=== PATIENT | female | born 1945 | race Caucasian/White ===

== ENCOUNTER → 2017-09-22 07:30 | Outpatient (CLI) | payer MEDICARE, SELFPAY ==
--- NOTE | 2017-09-22 10:16 | NEURO ---
NCS and/or EMG Patient Report Ordering Doctor: Carmelo Marquez DATE OF SERVICE: 09/22/17 Is a bilateral lower extremity nerve conduction study and a right lower extremity EMG performed on this 72-year-old female with a history of pain describes as pins and needles in her feet bilaterally for several years. She is healthy without a history of diabetes. She does have osteoarthritis. Remotely she experienced sciatica. Denies weakness. Bilateral lower extremity sensory and motor nerve conduction study along with H reflex and F-wave latencies were obtained. The sural sensory responses bilaterally demonstrate normal latencies and amplitudes. The medial plantar responses bilaterally demonstrate reduced amplitudes but intact latencies. The common peroneal conduction velocities bilaterally are borderline low with mild reduction of amplitude and mild prolongation of latencies. Tibial distal latencies are mildly increased with mild reduction of amplitude and conduction velocities. Tibial and common peroneal F-wave latencies symmetrically are preserved and the H reflex responses from the tibial nerves bilaterally are reduced. Right lower extremity needle was performed. Muscles evaluated included the extensor digitorum brevis, abductor hallucis, medial gastrocnemius, anterior tibialis, vastus lateralis and vastus medialis muscles. All muscles demonstrated normal insertional activity however distal muscle did demonstrate large motor units, this abnormality resolved more proximally consistent with a length dependent pattern. All other muscles demonstrated normal insertional activity with absence of pathologic spontaneous activity, normal motor unit recruitment pattern and amplitude was demonstrated otherwise. Impression: Abnormal electrophysiologic study of the lower extremities consistent with length dependent peripheral neuropathy.
== END ==
PROVIDERS: Family Provider Internal Medicine; PCP Internal Medicine; Visit Provider Podiatrist Foot & Ankle Surgery
DX: G57.91 Unspecified mononeuropathy of right lower limb (principal); G57.92 Unspecified mononeuropathy of left lower limb
CPT/HCPCS: 95886; 95911

== ENCOUNTER 2019-03-16 18:44 | Inpatient (IN) | payer MEDICARE, SELFPAY ==
[2019-01-12 12:35] VITALS: BMI 24.7
[2019-03-16] VITALS (8 sets, daily range): BP systolic 134–207; BP diastolic 60–75; PULSE 55–66; RESP 13–18; TEMP 36.6–36.7; O2SAT 97–100; BMI 23.3; BMI 24.4; BMI 24.5
--- NOTE | 2019-03-16 18:48 | EKG12_ITS ---
Test Reason : CP ADMIT Blood Pressure : / mmHG Vent. Rate : 056 BPM Atrial Rate : 056 BPM P-R Int : 170 ms QRS Dur : 098 ms QT Int : 510 ms P-R-T Axes : 044 012 020 degrees QTc Int : 492 ms Sinus bradycardia Nonspecific ST abnormality Prolonged QT Abnormal ECG Confirmed by MILAN DELANEY, ASHANTI ([id number]), purchase request editor RIA VAZQUEZ ([id number]) on 03/20/2019 11:30:06 AM Referred By: Mukesh Ugarte Confirmed By:ASHANTI YATES MD
--- NOTE | 2019-03-16 19:07 | RAD_ITS ---
STUDY: X-RAY CHEST REASON FOR EXAM: Female, 73 years old. Chest pain TECHNIQUE: Frontal view of the chest COMPARISON: None. FINDINGS: There is a left lung base infiltrate with small effusion. A trace right effusion is present. There is no pneumothorax. The heart is normal in size. The visualized osseous structures are within normal limits. RAD/Chest 1 View (Portable) IMPRESSION: Left lung base infiltrate with small effusion. Trace right effusion. Electronically Signed: Jim Hernandez, at 19:34 EDT Tel , Service support ,
[2019-03-16 19:18] LABS: Absolute Lymphocyte Count 1.01 X10^3/uL (0.83-4.51); Absolute Neutrophil Count 5.2 X10^3/uL (2.0-7.7); Basophil# 0.04 X10^3/uL; Basophil% 0.5 % (0-1); Eosinophil# 0.13 X10^3/uL; Eosinophils% 1.8 % (0-5); Hematocrit 33.8 % (37-47); Hemoglobin 9.9 g/dL (12.0-15.0); Lymphocyte # 1.01 X10^3/ul (4.0); Lymphocyte % 13.8 % (19-41); Mean Corp Hgb Conc 29.3 g/dL (32-36); Mean Corpuscular Hgb 22.7 pg (27.0-32.0); Mean Corpuscular Volume 77.5 fL (81-99); Mean Platelet Vol. 11.5 fl (6.2-12.0); Monocyte% 12.3 % (0-10); NRBC Flagged by Analyzer 0 % (0-5); Neutrophil % 71.1 % (47-70); Platelet Count 252 K/mm3 (150-450); RBC Distribution Width CV 15.9 % (11.6-14.6); RBC Distribution Width SD 44.7 fl (35.1-43.9); Red Blood Count 4.36 M/mm3 (4.2-5.4); White Blood Count 7.3 K/mm3 (4.4-11.0)
[2019-03-16 19:35] LABS: Anion Gap 4 (5-15); BUN 14 mg/dL (7-18); BUN/Creat Ratio 18.9 RATIO (10-20); Calcium,Total 8.5 mg/dL (8.5-10.1); Chloride 103 mmol/L (98-107); Creatinine, Serum 0.74 mg/dL (0.55-1.02); EST Glomerular Filtration Rate 82 mL/min (>60); Est Glom Filt Rate - Afr Amer 99 mL/min (>60); Glucose 83 mg/dL (74-106); Sodium Level 140 mmol/L (136-145)
--- NOTE | 2019-03-16 20:01 | EKG12_ITS ---
Test Reason : REPEAT Blood Pressure : / mmHG Vent. Rate : 063 BPM Atrial Rate : 063 BPM P-R Int : 158 ms QRS Dur : 098 ms QT Int : 442 ms P-R-T Axes : 039 005 030 degrees QTc Int : 452 ms Sinus rhythm with Premature supraventricular complexes Left ventricular hypertrophy with repolarization abnormality Abnormal ECG Confirmed by MILAN DELANEY, ASHANTI ([id number]), clinical editor RIA VAZQUEZ ([id number]) on 03/20/2019 10:54:37 AM Referred By: Mukesh Ugarte Confirmed By:ASHANTI YATES MD
[2019-03-16] MEDS: Aspirin 325 MG Tablet PO (20:07)
[2019-03-16 20:21] LABS: D-Dimer Quantitative (DVT/PE) 0.81 FEU/ug/m (0.27-0.49)
--- NOTE | 2019-03-16 20:23 | ED.RN ---
LAB CALL WITH CRITICAL VALUE FOR D.DIMER OF 0.81. DR NANDINI PERES NOTIFIED AT THIS TIME.
--- NOTE | 2019-03-16 20:26 | CT_ITS ---
STUDY: CTA CHEST REASON FOR EXAM: Female, 73 years old. Chest pain below the left breast. RADIATION DOSAGE (If Supplied By Facility): CTDIvol = ( 9.97 ) mGy, DLP = ( 334.42 ) mGycm TECHNIQUE: The examination was performed with the intravenous administration of IV 75mL Isovue-370 75ML. Post-processing of the angiographic images was performed, with multiplanar reformation and 3D reconstruction. Individualized dose optimization techniques were used for this CT. COMPARISON: None. FINDINGS: Normal enhancement of the main pulmonary artery and right and left pulmonary arteries. Normal enhancement of the bilateral peripheral pulmonary arteries. There is no demonstrated pulmonary embolism. Normal thoracic aorta and visualized great vessels. There is no demonstrated aortic dissection. There are calcifications of the coronary arteries. Normal mediastinum. Normal hilar regions. Normal visualized trachea and bronchi. The lungs are well expanded. Left lower lobe peribronchial thickening and surrounding airspace disease extending to the basilar segment with small adjacent effusion concerning for infectious infiltrate. Right lower lobe atelectatic changes are present. Normal pleura. Normal chest wall structures. Normal osseous structures. Normal visualized upper abdomen. CT/CTA Chest W/WO Contrast IMPRESSION: 1. No evidence of pulmonary embolism or aortic dissection. 2. Left lower lobe peribronchial thickening and airspace disease with small effusion concerning for acute left lower lobe infiltrate and pneumonia in the appropriate clinical setting. Electronically Signed: Luis Moses DO at 21:01 EDT , Service support ,
--- NOTE | 2019-03-16 20:34 | ED.DCSUM_ITS ---
- ER Visit Summary Date of Service: 03/16/19 Chief Complaint: Chest pain History of Present Illness: The patient is a 73 F presenting with chest pain. Patient states this started last night. Pain has been waxing and waning. It is worsened with deep breathing. She denies shortness of breath. She has chronic abdominal pain which is no worse than usual. She has nausea without vomiting. She has chronic diarrhea. Denies fever. She has a mild cough. She denies PE/DVT risk factors. She has a history of CAD, hypertension. Family history of heart disease age over 55. She is not a smoker. Physical Examination: Vitals are stable. Patient is afebrile. Alert no acute distress. HEENT exam is unremarkable. Neck is supple. Lungs are clear and equal bilaterally. Heart is regular rate and rhythm. Abdomen is soft nontender nondistended. Extremities are unremarkable. Skin is warm and dry. No focal neurologic deficit. Remainder of exam is unremarkable. Emergency Department Course and Treatment: EKG is sinus rate of 64 with inferior lateral T wave flattening and inversion, changed from previous. CBC normal except hemoglobin 9.9. Chemistries normal except for potassium 3.0. Troponin is negative. D-dimer 0.81. Chest x-ray shows left lung infiltrate, right effusion. CTA chest shows no evidence of pulmonary embolism or aortic dissection. Left lower lobe peribronchial thickening and airspace disease with small effusion concerning for acute left lower lobe infiltrate and pneumonia in the appropriate clinical setting. Patient was given Rocephin, Zithromax IV. Discussed with the hospitalist for admission. Disposition: Admission Impression: Chest pain, pneumonia This note was generated with [employer] dictation software. It may contain incorrect words, spelling, and punctuation that were not noted in review of the chart prior to signing ED Disposition - Plan for ED Patient: Referrals: Alisson Armenta MD [Primary Care Provider] -
--- NOTE | 2019-03-16 21:30 | PCM.HP.STD ---
Problem List (1) Atherosclerosis of coronary artery of [place] heart without angina pectoris Status: Chronic Comment: ROS-HMM-Xfiy LAD 3 x 20 mm Taxus 03/22/2006 (2) Essential (primary) hypertension Status: Chronic (3) HLD (hyperlipidemia) Status: Chronic History of Present Illness Date of Admission: 03/16/19 Chief Complaint: chest pain The patient is a 73 year old F with a significant history of CAD with stent placed 13 years ago; hypertension; depression and anxiety who presented to the emergency department with chest pain. Her chest pain is located under her left breast. Her pain is persistent. It radiates to her left shoulder. She tried Tylenol but this did not help her pain. Her chest pain is aggravated with coughing and taking deep breaths. She has a dry cough. Chest x-ray at the emergency department showed left lung base infiltrate with small effusion and trace right effusion. Chest CT showed left lower lobe peribronchial thickening and airspace disease with small effusion concerning for acute lower lobe infiltrate Her EKG showed T wave inversion and flattening in inferior and anterior leads. Past Medical History Past Medical History (Chronic Problems): Chronic Problems (Last Reviewed 03/17/19 @ 04:11 by Mukesh Ugarte MD) Atherosclerosis of coronary artery of [place] heart without angina pectoris (Chronic) MBE-MUF-Uyux LAD 3 x 20 mm Taxus 03/22/2006 Essential (primary) hypertension (Chronic) HLD (hyperlipidemia) (Chronic) Medical History: Medical History (Last Reviewed 03/17/19 @ 07:30 by Mukesh Ugarte MD) Atherosclerosis of coronary artery of [place] heart without angina pectoris (Chronic) I25.10 CZF-PPS-Ajet LAD 3 x 20 mm Taxus 03/22/2006 Essential (primary) hypertension (Chronic) I10 HLD (hyperlipidemia) (Chronic) E78.5 Anxiety F41.9 Lupus M32.9 Osteoarthritis M19.90 Allergies iodine Allergy (Verified 01/12/19 12:35) doesnt feel well Home Medications: Ambulatory Orders Medication Instructions Recorded cholecalciferol (vitamin D3) 5,000 5,000 unit PO QWEEK 01/11/18 unit capsule clorazepate dipotassium 3.75 mg 3.75 mg PO TID 01/11/18 tablet metoprolol tartrate 25 mg tablet 25 mg PO BID 01/11/18 nortriptyline 25 mg capsule 25 mg PO DAILY cap 01/12/19 Surgical History: Surgical History (Last Reviewed 03/17/19 @ 07:30 by Mukesh Ugarte MD) History of coronary artery stent placement (Resolved) Onset Date: 03/22/06 Z95.5 VPK-FTO-Abmf LAD 3 x 20 mm Taxus 03/22/2006 Hx of appendectomy Z90.49 Status post laser cataract surgery of left eye Z98.42 Lives: Alone Smoking Status: Never smoker - But reports secondhand smoking from . Tobacco Use: Non-smoker Alcohol: Rare - *Family History Maternal Family History: Family History (Last Reviewed 03/17/19 @ 07:30 by Mukesh Ugarte MD) Father No problems noted. Mother CHF (congestive heart failure) Paternal Family History: Family History (Last Reviewed 03/17/19 @ 07:30 by Mukesh Ugarte MD) Father No problems noted. Mother CHF (congestive heart failure) History Items: Heart Disease Review of Systems Constitutional: Denies: Chills, Fever, Weight Change HEENT: Denies: Head Aches, Sinus Congestion, Sinus Drainage Cardiovascular: Reports: Chest Pain. Denies: Palpitations Respiratory: Reports: Cough, Shortness of Breath Gastrointestinal: Denies: Abdominal Pain, Nausea, Vomiting Genitourinary: Denies: Dysuria Musculoskeletal: Denies: Joint Pain, Joint Tenderness Skin: Denies: Rash, Wounds Neurological: Denies: Numbness, Tingling, Focal weakness Psychiatric: Denies: Anxiety, Depression, Homicidal Ideations, Suicidal Ideations Hematologic/ Lymphatic: Denies: Easy Bruising, Easy Bleeding VTE Information - Inpt Only VTE Present on Admission: No VTE Mechan Device Prophylaxis: None VTE Pharm Prophylaxis ordered?: Yes - Physical Exam Vitals/I&O's: Vital Signs Temp Pulse Resp BP Pulse Ox 97.8 F 61 18 162/75 H 98 03/16/19 18:44 03/16/19 21:01 03/16/19 21:01 03/16/19 21:01 03/16/19 21:01 Oxygen Delivery Method Room Air Weight: 65.771 kg Body Mass Index (BMI) 23.3 General: Alert, Oriented x3, Cooperative HEENT: Atraumatic, PERRLA, EOMI, Normocephalic Neck: Supple, No JVD, Negative Carotid Bruits Lungs: Clear to auscultation, Normal air movement Cardiovascular: Regular rate, No murmurs Abdomen: Bowel Sounds Present, Soft, Non Tender Extremities: No edema, Capillary Refill Less than 3 Seconds Skin: No rashes, No breakdown Musculoskeletal: No Tenderness to Palpation of Joints or Extremities Neurological: Cranial nerves II-XII grossly intact Psych/Mental Status: Normal Affect, Appropriate Laboratory Results 03/16/19 19:08: WBC 7.3, RBC 4.36, Hgb 9.9 L, Hct 33.8 L, MCV 77.5 L, MCH 22.7 L, MCHC 29.3 L, RDW Std Deviation 44.7 H, RDW Coeff of Kitty 15.9 H, Plt Count 252, MPV 11.5, Immature Gran % (Auto) 0.500, Neut % (Auto) 71.1 H, Lymph % (Auto) 13.8 L, [place] % (Auto) 12.3 H, Eos % (Auto) 1.8, Baso % (Auto) 0.5, Absolute Neuts (auto) 5.2, Absolute Lymphs (auto) 1.01, Nucleated RBC % 0 03/16/19 19:08: Sodium 140, Potassium 3.0 L, Chloride 103, Carbon Dioxide 33.0 H, Anion Gap 4 L, BUN 14, Creatinine 0.74, Estim Creat Clear Calc 46.90, Est GFR (MDRD) Af Amer 99, Est GFR (MDRD) Non-Af 82, BUN/Creatinine Ratio 18.9, Glucose 83, Calcium 8.5, Troponin I < 0.015 03/16/19 19:08: D-Dimer Quant (PE/DVT) 0.81 H* Current Medications Azithromycin 500 mg/ Dextrose 255 mls @ 250 mls/hr IV X1 ONE Stop: 03/16/19 22:27 Ceftriaxone Sodium (Rocephin) 1 gm in 50 mls @ 100 mls/hr IV X1 ONE Stop: 03/16/19 21:55 Assessment/Plan All Active Problems (Last Reviewed 03/17/19 @ 04:11 by Mukesh Ugarte MD) History of coronary artery stent placement (Resolved 03/22/06) The patient is a 73 year old F with a significant history of CAD with stent placed 13 years ago; hypertension; depression and anxiety who presented to the emergency department with chest pain and radiographic evidence of left lower lobe infiltrates consistent with likely pneumonia; and also with T wave inversion in inferior and anterior leads. Community acquired pneumonia Blood culture ?2 was obtained at the emergency department; follow results. Chest x-ray and chest CTA is remarkable for infiltrates. Respiratory Gram stain and culture pending Antibiotics: Ceftriaxone and azithromycin was started at the emergency department; follow Albuterol as needed Chest pain Although her chest pain could be from her pneumonia; patient also have abnormal EKG. No current EKG to compare with. Aspirin 325 mg in the emergency department. ASA 81 mg p.o. daily Initial troponin was negative. Serial cardiac enzymes Stat EKG as needed for chest pain Chemical stress test in the AM if the cardiac enzymes are negative Hypokalemia On presentation her potassium was 3.0. Replacement ordered. Magnesium level checked. Magnesium level 1.8. 2 g of magnesium ordered. Depression and anxiety Amitriptyline continued Hypertension On presentation her blood pressure was not within goal Metoprolol continued Trend blood pressure and adjust blood pressure medication as necessary DVT prophylaxis Subcutaneous Lovenox Code Visit Inpatient E&M: 89048 Init Hosp L3
[2019-03-16] MEDS: Ceftriaxone 1 GM/50 ML BAG IV (21:55)
--- NOTE | 2019-03-16 22:44 | EKG12_ITS ---
Test Reason : CP Blood Pressure : / mmHG Vent. Rate : 064 BPM Atrial Rate : 064 BPM P-R Int : 154 ms QRS Dur : 090 ms QT Int : 444 ms P-R-T Axes : 038 009 023 degrees QTc Int : 458 ms Normal sinus rhythm Possible Left atrial enlargement Nonspecific ST and T wave abnormality Abnormal ECG Confirmed by MILAN DELANEY, ASHANTI ([id number]), senior technical editor RIA VAZQUEZ ([id number]) on 03/20/2019 10:54:55 AM Referred By: Mukesh Ugarte Confirmed By:ASHANTI YATES MD
[2019-03-16 23:15] LABS: Magnesium 1.8 mg/dL (1.6-2.6)
[2019-03-17] VITALS (12 sets, daily range): BP systolic 137–172; BP diastolic 61–84; PULSE 55–78; RESP 16–18; TEMP 36.6–36.9; O2SAT 94–98
[2019-03-17] MEDS: Atorvastatin Calcium 40 MG Tablet PO (00:50)
[2019-03-17] MEDS: Potassium Chloride 10mEq/100mL 10 MEQ/100 ML IV.SOLN. 100 MEQ IV BOLUS ×4 (00:51→03:41)
[2019-03-17] MEDS: Metoprolol Tartrate 25 MG Tablet PO ×2 (01:22→23:37)
[2019-03-17] MEDS: Nortriptyline 25 MG Capsule 75 MG PO ×2 (01:29→22:32)
--- NOTE | 2019-03-17 05:55 | EKG12_ITS ---
Test Reason : AM EKG Blood Pressure : / mmHG Vent. Rate : 054 BPM Atrial Rate : 054 BPM P-R Int : 172 ms QRS Dur : 096 ms QT Int : 494 ms P-R-T Axes : 033 013 028 degrees QTc Int : 468 ms Sinus bradycardia Otherwise normal ECG When compared with ECG of 16-MAR-2019 23:17, MANUAL COMPARISON REQUIRED, DATA IS UNCONFIRMED Confirmed by MILAN DELANEY, ASHANTI ([id number]), supervising editor trailer RIA VAZQUEZ ([id number]) on 03/20/2019 11:29:18 AM Referred By: Mukesh Ugarte Confirmed By:ASHANTI YATES MD
[2019-03-17 06:32] LABS: Absolute Lymphocyte Count 0.78 X10^3/uL (0.83-4.51); Absolute Neutrophil Count 5.7 X10^3/uL (2.0-7.7); Basophil# 0.05 X10^3/uL; Basophil% 0.7 % (0-1); Eosinophil# 0.07 X10^3/uL; Hematocrit 33.6 % (37-47); Hemoglobin 9.7 g/dL (12.0-15.0); Lymphocyte # 0.78 X10^3/ul (4.0); Lymphocyte % 10.7 % (19-41); Mean Corp Hgb Conc 28.9 g/dL (32-36); Mean Corpuscular Hgb 22.1 pg (27.0-32.0); Mean Corpuscular Volume 76.7 fL (81-99); Mean Platelet Vol. 11.5 fl (6.2-12.0); Monocyte# 0.67 X10^3/uL; Monocyte% 9.2 % (0-10); NRBC Flagged by Analyzer 0 % (0-5); Neutrophil # 5.67 X10^3/uL (2.7-7.7); Neutrophil % 77.9 % (47-70); Platelet Count 224 K/mm3 (150-450); RBC Distribution Width SD 44.3 fl (35.1-43.9); Red Blood Count 4.38 M/mm3 (4.2-5.4); White Blood Count 7.3 K/mm3 (4.4-11.0)
[2019-03-17] MEDS: 0.9% Saline Lock 10 ML Syringe IV ×3 (06:38→22:24)
[2019-03-17] MEDS: Aspirin E.C. 81 MG Tablet PO (06:40)
[2019-03-17 06:44] LABS: Anion Gap 4 (5-15); BUN 8 mg/dL (7-18); BUN/Creat Ratio 13.8 RATIO (10-20); Calcium,Total 8.4 mg/dL (8.5-10.1); Chloride 109 mmol/L (98-107); Cholesterol 191 mg/dL (200); Creatinine, Serum 0.58 mg/dL (0.55-1.02); EST Glomerular Filtration Rate 108 mL/min (>60); Est Glom Filt Rate - Afr Amer 131 mL/min (>60); Estimated Creatinine Clearance 45.09 ml/min; Glucose 98 mg/dL (74-106); High Density Lipoprotein 52 mg/dL; Potassium 4.5 mmol/L (3.5-5.1); Sodium Level 139 mmol/L (136-145); Triglycerides 90 mg/dL; Very Low Density Lipoprotein 18 mg/dL (5-40)
--- NOTE | 2019-03-17 07:20 | PCM.PROGNOTE ---
Subjective: The patient is a 73-year-old female with a past medical history of hypertension, hyperlipidemia, anxiety/depression, coronary artery disease with PTCA/JESUS to the proximal LAD in February 2006 who presented to the emergency department complaining of chest pain radiating to the left shoulder. The pain was aggravated with coughing and deep breaths. Vital signs in the emergency department were temperature 97.8, pulse rate 66, blood pressure 134/71, respiratory rate 18 and she was 100% saturated on room air. CBC showed a white blood cell count of 7.3 with 71% neutrophils. The hemoglobin was 9.9 with an MCV of 77.5 and normal platelets. D-dimer was mildly elevated at 0.81. Potassium was low at 3.0 and the serum bicarb was elevated at 33. BUN was 14 and the creatinine was 0.74. Troponin was less than 0.015. Chest x-ray showed a left basilar infiltrate with a small effusion. CT of the chest was negative for pulmonary embolism. The left lower lobe infiltrate was demonstrated on CT as well as chest x-ray. She was admitted to the hospital with a diagnosis of community-acquired pneumonia and azithromycin and Rocephin started in the emergency department were continued. Afebrile since admission. Blood pressures are not adequately controlled and have ranged from 144/62 207/74 since 7 PM on 03/16/2019. All lab was personally reviewed. White blood cell count remains normal at 7.3 and there are 78% neutrophils. Hemoglobin is stable at 9.7 with microcytic indices. Platelets remain normal. BMP is unremarkable. The BUN is decreased from 14 at admission to 8 today with hydration. Potassium is now within normal limits following supplementation. LDL is not adequately controlled at 121 and the HDL is 52. Serial cardiac enzymes were negative. Blood cultures are pending. Stress is negative today. she has pain in the left chest with deep breathing and so she is splinting her respirations. She is coughing but not getting much up. Admits to pushing herself at home. Lives by herself. Feeling tired. Poor appetite - Physical Exam Vitals/I&O's: Vital Signs Temp Pulse Resp BP Pulse Ox 98.0 F 57 L 16 167/61 H 98 03/17/19 06:35 03/17/19 06:35 03/17/19 06:35 03/17/19 06:35 03/17/19 06:35 Oxygen Delivery Method Room Air Weight: 147 lb Body Mass Index (BMI) 24.4 Intake and Output for Last 24 Hours 03/15/19 03/16/19 03/17/19 23:59 23:59 23:59 Intake Total 545 / 545 457.5 / 457.5 Balance 545 / 545 457.5 / 457.5 General: Alert, Cooperative, - - soft spoken HEENT: Atraumatic, PERRLA, EOMI, Normocephalic Oral: Moist Mucosa, No Gingival or Mucosal Lesions/ Ulcerations Neck: Supple, No JVD, No Nodes, Trachea Midline Lungs: - - poor inspiratory effort. Diminished BS's in the bases. No wheezing. Few crackles in the bases. No conversational dyspnea. No accessory muscle use. Not tachypneic. Cardiovascular: Regular rate, Regular Rhythm, Normal S1, Normal S2, No murmurs, No rub noted, No Gallop Abdomen: Bowel Sounds Present, Soft, Non Tender, Non-Distended Extremities: No clubbing, No cyanosis, No edema Skin: No rashes Neurological: Cranial nerves II-XII grossly intact, Neuro grossly intact Psych/Mental Status: Normal Affect, Appropriate Laboratory Results 03/16/19 19:08: WBC 7.3, RBC 4.36, Hgb 9.9 L, Hct 33.8 L, MCV 77.5 L, MCH 22.7 L, MCHC 29.3 L, RDW Std Deviation 44.7 H, RDW Coeff of Kitty 15.9 H, Plt Count 252, MPV 11.5, Immature Gran % (Auto) 0.500, Neut % (Auto) 71.1 H, Lymph % (Auto) 13.8 L, Patrick % (Auto) 12.3 H, Eos % (Auto) 1.8, Baso % (Auto) 0.5, Absolute Neuts (auto) 5.2, Absolute Lymphs (auto) 1.01, Nucleated RBC % 0 03/16/19 19:08: Sodium 140, Potassium 3.0 L, Chloride 103, Carbon Dioxide 33.0 H, Anion Gap 4 L, BUN 14, Creatinine 0.74, Estim Creat Clear Calc 46.90, Est GFR (MDRD) Af Amer 99, Est GFR (MDRD) Non-Af 82, BUN/Creatinine Ratio 18.9, Glucose 83, Calcium 8.5, Troponin I < 0.015 03/16/19 19:08: D-Dimer Quant (PE/DVT) 0.81 H* 03/16/19 22:50: Magnesium 1.8 03/16/19 22:50: Troponin I < 0.015 03/17/19 01:48: Troponin I < 0.015 03/17/19 05:50: WBC 7.3, RBC 4.38, Hgb 9.7 L, Hct 33.6 L, MCV 76.7 L, MCH 22.1 L, MCHC 28.9 L, RDW Std Deviation 44.3 H, RDW Coeff of Kitty 16.0 H, Plt Count 224, MPV 11.5, Immature Gran % (Auto) 0.500, Neut % (Auto) 77.9 H, Lymph % (Auto) 10.7 L, Patrick % (Auto) 9.2, Eos % (Auto) 1.0, Baso % (Auto) 0.7, Absolute Neuts (auto) 5.7, Absolute Lymphs (auto) 0.78 L, Nucleated RBC % 0 03/17/19 05:50: Sodium 139, Potassium 4.5, Chloride 109 H, Carbon Dioxide 26.0, Anion Gap 4 L, BUN 8, Creatinine 0.58, Estim Creat Clear Calc 45.09, Est GFR (MDRD) Af Amer 131, Est GFR (MDRD) Non-Af 108, BUN/Creatinine Ratio 13.8, Glucose 98, Calcium 8.4 L, Triglycerides 90, Cholesterol 191, LDL Cholesterol 121, VLDL Cholesterol 18, HDL Cholesterol 52 Current Medications Acetaminophen (Tylenol) 650 mg PO Q6H PRN PRN PRN Reason: Pain Score 1-3/Temp > 100.7 F Acetaminophen (Tylenol) 650 mg PO Q6H PRN PRN PRN Reason: Pain Score 1-3 /Temp>100.7 Albuterol Sulfate (Ventolin Aerosols) 2.5 mg INHALATION Q2H PRN PRN PRN Reason: SOB/Wheezing Aspirin (Ecotrin) 81 mg PO DAILY@0800 [facility] Last Admin: 03/17/19 06:40 Dose: 81 mg Documented by: Atorvastatin Calcium (Lipitor) 40 mg PO QHS [facility] Last Admin: 03/17/19 00:50 Dose: 40 mg Documented by: Cholecalciferol (Vitamin D) 5,000 unit PO QWEEK [facility] Dextrose (D50w Syringe) 0 gm IV X1 PRN; Protocol PRN Reason: Hypoglycemia Enoxaparin Sodium (Lovenox) 40 mg SC DAILY@1000 [facility] Glucagon () 1 mg IM .X1 PRN PRN Reason: Hypoglycemia Ceftriaxone Sodium (Rocephin) 1 gm in 50 mls @ 100 mls/hr IV Q24H [facility] Azithromycin 500 mg/ Dextrose 255 mls @ 250 mls/hr IV Q24H [facility] Stop: 03/19/19 23:02 Sodium Chloride () 250 mls @ 15 mls/hr IV .[id number] PRN PRN Reason: Saline Flush Last Infusion: 03/17/19 04:41 Dose: 0 mls/hr Documented by: Metoprolol Tartrate (Lopressor (Beta Sai)) 50 mg PO DAILY [facility] Metoprolol Tartrate (Lopressor (Beta Sai)) 25 mg PO QHS [facility] Last Admin: 03/17/19 01:22 Dose: 25 mg Documented by: Nitroglycerin (Nitrostat) 0.4 mg SUBLINGUAL Q5M PRN PRN Reason: CARDIAC/CHEST PAIN Non-Formulary Medication (Clorazepate Dipotassium) 3.75 mg PO TID [facility] Nortriptyline HCl (Pamelor) 25 mg PO DAILY [facility] Nortriptyline HCl (Pamelor) 75 mg PO QHS [facility] Last Admin: 03/17/19 01:29 Dose: 75 mg Documented by: Nutritional Formula (Lactose Free) (Ensure Enlive) 120 ml PO 4X/DAY [facility] Ondansetron HCl (Zofran) 4 mg IV Q8H PRN PRN PRN Reason: NAUSEA/VOMITING Sodium Chloride () 10 - 40 ml IV UD PRN PRN Reason: SALINE FLUSH Last Admin: 03/17/19 06:38 Dose: 10 ml Documented by: Medical Necessity - Tobacco Use Smoking Status: Never smoker - But reports secondhand smoking from . Tobacco Use: Non-smoker Assessment/Plan All Active Problems (Last Reviewed 03/17/19 @ 07:30 by Mukesh Ugarte MD) History of coronary artery stent placement (Resolved 03/22/06) Impressions 1. CAP -continue Rocephin and azithromycin. Respiratory panel, Legionella and streptococcal antigens in the urine are negative. She could not produce a sputum. Blood cultures are pending. 2. Left parapneumonic effusion with pleuritis -I stressed with her the importance of pain medication so that she is able to take a deep breath to clear the pneumonia in the left base. She has an incentive spirometer and her room and knows how to use it. 3. Microcytic anemia secondary to chronic iron deficiency-iron sucrose ordered. Stool is Hemoccult negative 4. Hypokalemia-resolved with supplementation 5. Noncardiac chest pain-stress test normal. His pain is secondary to pleurisy. 6. Anxiety/depression-continue home medications 7. Hypertension continue home meds 8. Coronary artery disease with history of a stent 13 years ago. LDL is not adequately controlled and it is 121. She should be on a statin with a goal LDL of Less than 70 9. Hemoccult positive stool with iron deficiency anemia. Will query her to see if she has ever had a colonoscopy. Legionella and streptococcal antigens in the urine, sputum GM stain and culture, respiratory panel ordered. Continue Rocephin and azithromycin Check iron studies Hemoccult stool Increase atorvastatin 80 mg p.o. nightly and recheck lipid panel in 6 weeks to see if the LDL is at goal Ambulatory pulse ox on room air prior to discharge Code Visit Inpatient E&M: 18170 Subs Hosp L2
[2019-03-17 07:56] LABS: AST(SGOT) 14 U/L (15-37); Alanine Aminotransfer ALT/SGPT 13 U/L (13-56); Albumin, Serum 3.1 g/dL (3.2-5.0); Alkaline Phosphatase 118 U/L (45-117); Bilirubin, Direct 0.09 mg/dL (0.00-0.30); Ferritin 5 ng/mL (8-252); Globulin 3.7 g/dL (2.2-4.2); Iron 30 ug/dL (50-170); Iron Binding Capacity,Total 359 ug/dL (250-450); PERCENT IRON SATURATION 8.4 % (15.0-55.0); Protein, Total 6.8 g/dL (6.4-8.2)
--- NOTE | 2019-03-17 11:00 | CASEMGMT ---
Addendum entered by Ivette Knight 03/17/19 12:22: This RN CM back to room and pt is still of the dept for testing at this time. Will attempt again later. Tim BLACK CM Original Note: This RN CM to room to complete CM assessment and pt is out of the dept for testing at this time. Will attempt again later. Tim BLACK CM
--- NOTE | 2019-03-17 11:46 | CASEMGMT ---
Pt is not in room at present for SW to speak w/her, however as per admitting RH she had said just last evening that she would bring in LW/POA forms, and that Emilio Gaitan is medical POA. SUZY Barraza
--- NOTE | 2019-03-17 11:58 | CASEMGMT ---
This RN CM to room to complete CM assessment and pt is out of the dept for testing at this time. Will attempt again later. SStaten RN CM
--- NOTE | 2019-03-17 12:45 | CASEMGMT ---
[place] assessment: Face to Face with patient for initial transition planning/care coordination assessment. [place] introduced self and role at [facility], pt voices understanding and consents to assessment at this time. Pt is sitting up on side of bed in no distress at this time. Pt is A/Ox4 at this time and answers all questions appropriately at this time. Care providers, pharmacy, and demographics verified at this time. PCP: Kathi Specialists: Elly, cardio; robbie Marquez Preferred Pharmacy: [facility] Insurance: [employer] Prescription Benefit: [employer] Living Will/HPOA: Pt states has LW/HPOA and is aware that they are not currently on file at [facility] at this time. Pt states that her brother, Adolph Gaitan, is HPOA. This [place] encouraged pt to bring AD paperwork in when able, voices understanding. LNOK: Adolph Gaitan, brother/HPOA; Kyleheriberto Handley, friend Living Arrangements: Pt states lives on main level of large 2 story home with 3 steps into home and states no concerns at home at this time. Pt states is independent with ADL's. Transportation: Pt states drives self and states no transportation concerns at this time. DME/HHC: Pt states has the following DME: grab bars, walker, and shower chair. Pt states does not use walker and states no need for any further DME at this time. Pt states no hx of HHC or SNF in the past. Pt states no concerns with going home at time of discharge. Pt states is retired. Pt states does not smoke or drink ETOH. Pt states no further concerns/needs at this time. CM to follow for any further discharge planning/needs. Advised pt to ask for CM if any further questions/concerns/needs arise, voices understanding. Pt Goal: Home Plan: Home [place]en [place]
[2019-03-17] MEDS: Nortriptyline 25 MG Capsule PO (13:33)
[2019-03-17] MEDS: Metoprolol Tartrate 50 MG Tablet PO (13:42)
--- NOTE | 2019-03-17 13:42 | STRESSREP_ITS ---
Stress Test Report Pharmacologic myocardial perfusion stress test. 73-year-old lady with a history of chest pain. Stress protocol: Resting EKG demonstrates sinus bradycardia with a rate of 57 bpm normal intervals are noted resting blood pressures 132/82 mmHg. 0.4 mg of regadenoson was infused per usual protocol followed by rapid intravenous saline flush injection continuous electronic device monitor was performed. Maximum heart rate attained was 78 bpm which was 53% of maximum predicted heart rate the maximum workload was 1 metabolic equivalent. At rest there were no ST or T wave changes noted suggest abnormal flow reserve at peak infusion nonspecific ST-T wave changes were noted with no evidence of abnormal flow reserve noted. The resting blood pressures 1 32/82 with a final blood pressure 142/96. Myocardial perfusion protocol. 11.5 mCi of technetium 99m sestamibi was injected at rest. 0.4 mg of regadenoson was infused per usual protocol peak infusion 35.2 mCi of technetium 99m sestamibi was injected stress images were obtained stress and rest images were reconstructed and compared in the short axis vertical and horizontal long axis. Gated images were also obtained Perfusion SPECT analysis: Review of the stress images demonstrate normal uptake of tracer noted in all areas of the myocardium the resting images similar demonstrate normal uptake of tracer noted in all areas of the myocardium. No areas of reversibility are noted suggest ischemia. Gated SPECT analysis: The gated ejection fraction is noted to be 75%. Conclusion: Normal pharmacologic myocardial perfusion stress test. Preserved ejection fraction.
[2019-03-17] MEDS: Acetaminophen 325 MG Tablet 650 MG PO (18:19)
[2019-03-17] MEDS: Ceftriaxone 1 GM/50 ML BAG IV (22:31)
[2019-03-17] MEDS: Atorvastatin Calcium 80 MG Tablet PO (22:32)
[2019-03-18] VITALS (14 sets, daily range): BP systolic 147–178; BP diastolic 71–98; PULSE 45–66; RESP 14–17; TEMP 36.5–36.8; O2SAT 92–98
[2019-03-18] MEDS: 0.9% Saline Lock 10 ML Syringe IV ×3 (01:30→22:03)
[2019-03-18] MEDS: oxyCODONE 5 MG Tablet PO ×2 (04:54→13:46)
[2019-03-18] MEDS: Aspirin E.C. 81 MG Tablet PO (09:38)
[2019-03-18] MEDS: Metoprolol Tartrate 50 MG Tablet PO (09:38)
[2019-03-18] MEDS: Nortriptyline 25 MG Capsule PO (09:39)
[2019-03-18] MEDS: Enoxaparin 40 MG/0.4 ML Syringe SC (09:41)
--- NOTE | 2019-03-18 14:05 | PN_ITS ---
Subjective: Patient still feels some chest pain mainly on the left posterior, aggravated by cough and deep breathing, pleuritic in nature. Patient is admitted with mainly chest pain with radiation to left shoulder. Chest x-ray shows left basilar infiltrate with a small effusion. CT chest was negative. On IV Rocephin and Zithromax for left basilar community-acquired pneumonia. Vitals/I&O's: Vital Signs Temp Pulse Resp BP Pulse Ox 97.7 F L 53 L 15 149/98 H 98 03/18/19 09:35 03/18/19 11:21 03/18/19 09:35 03/18/19 09:35 03/18/19 09:35 Oxygen Delivery Method Room Air Weight: 146 lb 15.997 oz Body Mass Index (BMI) 24.4 Intake and Output for Last 24 Hours 03/16/19 03/17/19 03/18/19 23:59 23:59 23:59 Intake Total 545 / 545 1772.50 / 1772.50 1164.5 / 1164.5 Balance 545 / 545 1772.50 / 1772.50 1164.5 / 1164.5 General: Alert, Oriented x3, Cooperative HEENT: Atraumatic, PERRLA, EOMI, Normocephalic Neck: Supple, No JVD, Negative Carotid Bruits Lungs: Clear to auscultation, No rhonchi, No wheeze, No rales, Diminished - Air entry is diminished on the left lung. Cardiovascular: Regular rate, Regular Rhythm, Normal S1, Normal S2, No murmurs Abdomen: Bowel Sounds Present, Soft, Non Tender, Non-Distended Extremities: No edema, Capillary Refill Less than 3 Seconds Skin: No rashes, No breakdown Musculoskeletal: No Tenderness to Palpation of Joints or Extremities, Arthritic Changes Neurological: Cranial nerves II-XII grossly intact, Deep Tendon Reflexes 2+/4 and Symmetrical, Neuro grossly intact Psych/Mental Status: Normal Affect, Appropriate Microbiology Past 72 Hours 03/17/19 09:02 Mucosa - Nasopharyngeal Respiratory Panel (PCR) - Final 03/17/19 08:15 Urine, Clean Catch Streptococcus pneumoniae Antigen (M - Final 03/17/19 08:15 Urine, Clean Catch Legionella Antigen - Final 03/17/19 08:15 Stool Stool Occult Blood ([facility]HAM) - Final Current Medications Acetaminophen (Tylenol) 650 mg PO Q6H PRN PRN PRN Reason: Pain Score 1-3/Temp > 100.7 F Last Admin: 03/17/19 18:19 Dose: 650 mg Documented by: Acetaminophen (Tylenol) 650 mg PO Q6H PRN PRN PRN Reason: Pain Score 1-3 /Temp>100.7 Albuterol Sulfate (Ventolin Aerosols) 2.5 mg INHALATION Q2H PRN PRN PRN Reason: SOB/Wheezing Aspirin (Ecotrin) 81 mg PO DAILY@0800 [facility] Last Admin: 03/18/19 09:38 Dose: 81 mg Documented by: Atorvastatin Calcium (Lipitor) 80 mg PO QHS [facility] Last Admin: 03/17/19 22:32 Dose: 80 mg Documented by: Cholecalciferol (Vitamin D) 5,000 unit PO QWEEK [facility] Clorazepate Dipotassium (Tranxene) 3.75 mg PO TID [facility] Last Admin: 03/18/19 06:41 Dose: 3.75 mg Documented by: Dextrose (D50w Syringe) 0 gm IV X1 PRN; Protocol PRN Reason: Hypoglycemia Enoxaparin Sodium (Lovenox) 40 mg SC DAILY@1000 [facility] Last Admin: 03/18/19 09:41 Dose: 40 mg Documented by: Glucagon () 1 mg IM .X1 PRN PRN Reason: Hypoglycemia Ceftriaxone Sodium (Rocephin) 1 gm in 50 mls @ 100 mls/hr IV Q24H [facility] Last Infusion: 03/17/19 23:01 Dose: Infused Documented by: Azithromycin 500 mg/ Dextrose 255 mls @ 250 mls/hr IV Q24H [facility] Stop: 03/19/19 23:02 Last Infusion: 03/18/19 00:12 Dose: Infused Documented by: Sodium Chloride () 250 mls @ 15 mls/hr IV .[id number] PRN PRN Reason: Saline Flush Last Infusion: 03/18/19 01:30 Dose: Infused Documented by: Iron Sucrose 200 mg/ Sodium (Chloride) 110 mls @ 220 mls/hr IV DAILY [facility] Stop: 03/19/19 10:29 Last Infusion: 03/18/19 10:32 Dose: Infused Documented by: Metoprolol Tartrate (Lopressor (Beta Sai)) 50 mg PO DAILY [facility] Last Admin: 03/18/19 09:38 Dose: 50 mg Documented by: Metoprolol Tartrate (Lopressor (Beta Sai)) 25 mg PO QHS [facility] Last Admin: 03/17/19 23:37 Dose: 25 mg Documented by: Nitroglycerin (Nitrostat) 0.4 mg SUBLINGUAL Q5M PRN PRN Reason: CARDIAC/CHEST PAIN Nortriptyline HCl (Pamelor) 25 mg PO DAILY [facility] Last Admin: 03/18/19 09:39 Dose: 25 mg Documented by: Nortriptyline HCl (Pamelor) 75 mg PO QHS [facility] Last Admin: 03/17/19 22:32 Dose: 75 mg Documented by: Nutritional Formula (Lactose Free) (Ensure Enlive) 120 ml PO 4X/DAY [facility] Last Admin: 03/18/19 13:49 Dose: Not Given Documented by: Ondansetron HCl (Zofran) 4 mg IV Q8H PRN PRN PRN Reason: NAUSEA/VOMITING Oxycodone HCl (Oxyir) 5 mg PO Q4H PRN PRN PRN Reason: >4 Last Admin: 03/18/19 13:46 Dose: 5 mg Documented by: Sodium Chloride () 10 - 40 ml IV UD PRN PRN Reason: SALINE FLUSH Last Admin: 03/18/19 09:47 Dose: 10 ml Documented by: STROKE Vital Signs/Narrative: Vital Signs Pulse 03/18/19 11:21 53 L Medical Necessity - Tobacco Use Smoking Status: Never smoker - But reports secondhand smoking from . Tobacco Use: Non-smoker Assessment/Plan All Active Problems (Last Reviewed 03/17/19 @ 07:30 by Mukesh Ugarte MD) History of coronary artery stent placement (Resolved 03/22/06) 33-year-old female admitted with left sided chest pain, pleuritic in nature. Chest x-ray and CTA chest consistent with left lower lobe pneumonia with peribronchial thickening and airspace disease and small parapneumonic effus ion. Impressions 1. CAP -continue Rocephin and azithromycin. Respiratory panel, Legionella and streptococcal antigens in the urine are negative. She could not produce a sputum. Blood cultures are pending. Pulse ox 98% on room air. No hypoxia 2. Left parapneumonic effusion with pleuritis She has an incentive spirometer 3. Microcytic anemia secondary to chronic iron deficiency-iron sucrose ordered. Stool is Hemoccult negative. Patient got 2 out of 3 iron sucrose ordered. Last dose tomorrow and then change to ferrous sulfate 325 once daily. Ferrous sulfate once daily has better and complete absorption than twice or thrice times daily. 4. Hypokalemia-resolved with supplementation 5. Noncardiac chest pain-stress test normal. His pain is secondary to pleurisy. 6. Anxiety/depression-continue home medications 7. Hypertension continue home meds 8. Coronary artery disease with history of a stent 13 years ago. LDL is not adequately controlled and it is 121. Goal LDL of Less than 70. On atorvastatin 80 mg daily 9. Hemoccult positive stool with iron deficiency anemia. Stool for occult blood negative. Will need colonoscopy as an outpatient. Clinical Impression(s) from Imaging Studies Chest X-Ray 03/16/19 19:07 IMPRESSION: Left lung base infiltrate with small effusion. Trace right effusion. Chest CTA 03/16/19 20:26 IMPRESSION: 1. No evidence of pulmonary embolism or aortic dissection. 2. Left lower lobe peribronchial thickening and airspace disease with small effusion concerning for acute left lower lobe infiltrate and pneumonia in the appropriate clinical setting. Code Visit Inpatient E&M: 07643 Subs Hosp L2
[2019-03-18] MEDS: Ceftriaxone 1 GM/50 ML BAG IV (22:03)
[2019-03-18] MEDS: Nortriptyline 25 MG Capsule 75 MG PO (22:05)
[2019-03-18] MEDS: Atorvastatin Calcium 80 MG Tablet PO (22:05)
[2019-03-18] MEDS: Metoprolol Tartrate 25 MG Tablet PO (22:08)
[2019-03-19] VITALS (7 sets, daily range): BP systolic 142–155; BP diastolic 49–66; PULSE 65–92; RESP 16–18; TEMP 36.4–36.7; O2SAT 93–98
[2019-03-19] MEDS: 0.9% Saline Lock 10 ML Syringe IV ×2 (05:36→10:24)
[2019-03-19] MEDS: Aspirin E.C. 81 MG Tablet PO (10:09)
[2019-03-19] MEDS: Nortriptyline 25 MG Capsule PO (10:10)
[2019-03-19] MEDS: Enoxaparin 40 MG/0.4 ML Syringe SC (10:10)
[2019-03-19] MEDS: Metoprolol Tartrate 50 MG Tablet PO (10:10)
--- NOTE | 2019-03-19 12:39 | DCINST_ITS ---
You will use the following diet at home:: Cardiac Your food should be the consistency of: Regular Your liquids should be the consistency of: Regular/Thin Discharge Activity: - - Gradually return to normal activity Call your doctor if you observe: Fever of 101 or Higher, Shortness of breath, Dizziness, Fainting spells, Swelling in the ankles, Chest pain, Calf discomfort, - - Call your PCP if severe diarrhea ( > 5 stools a day), painful sores in the mouth, painful swallowing, rash or itching. Taking a probiotic such as Lactobacillus or Kefir can help with loose stools while taking antibiotics. Additional Instructions: 1. I am discharging you on an antibiotic called Ceftin(Cefuroxime). Please finish ALL of the antibiotic as prescribed. You will need a follow up chest XRAY in 4-6 weeks to make sure that the pneumonia and the fluid around the lung resolved. IT is always a good idea to take a probiotic when you are taking antibiotics. 2. You are anemia - that means the red blood cell count is low. This usually happens because you are chronically losing blood and the bone marrow gets depleted of iron and that it can not have the building blocks to make new red blood cells. Common places where people lose blood is in the stool, in the urine and in women bleeding from the vagina. We need to find out where you are losing blood so discuss this is with your PCP. If you have not had a recent colonoscopy or upper endoscopy of the stomach you may need to have these. If you aree bleeding from the vagina you will need a pelvic ultra sound and a pelvic exam. You should have have your urine checked for blood. You should start taking an iron supplement once a day and if you tolerate this then it should be increased to twice a day. 3. Kombucha is a good probiotic and you can get organic kombucha with no preservatives. [facility] [employer] in [place] has different falvors of Kombucha and they even have it on tap. Allergies/Adverse Reactions: Allergies iodine Allergy (Verified 01/12/19 12:35) doesnt feel well Medications to take at Discharge cholecalciferol (vitamin D3) 5,000 unit capsule 5,000 unit PO QWEEK 01/11/18 clorazepate dipotassium 3.75 mg tablet 3.75 mg PO TID 01/11/18 metoprolol tartrate 25 mg tablet 25 mg PO BID 01/11/18 nortriptyline 25 mg capsule 25 mg PO DAILY cap 01/12/19 Cefuroxime Axetil [Ceftin] 500 mg PO BID #16 tab 03/19/19 The following prescriptions were given: Cefuroxime Axetil [Ceftin] 500 mg PO BID #16 tab Transmission Status: Pending to [id number] Primary Care Physician: Alisson Armenta MD [Primary Care Provider] - Please follow up with your Primary Care Physician in: 5-7 days Test Results: Test results from this visit will be discussed in further detail at your follow- up appointment, if applicable. Proposed Discharge Date: 03/19/19
--- NOTE | 2019-03-19 12:56 | PCM.DC.SUM ---
Discharge Date and Diagnosis - Problem List Patient Problems: Active and Suspected Problems (Last Reviewed 03/17/19 @ 07:30 by Mukesh Ugarte MD) Heme positive stool (Acute) Non-cardiac chest pain (Acute) Pleural effusion, left (Acute) Pleuritis (Acute) Community acquired pneumonia (Acute) Date of Admission: 03/16/19 Date of Discharge: 03/19/19 - Primary Discharge Diagnosis Active and Suspected Problems (Last Reviewed 03/17/19 @ 07:30 by Mukesh Ugarte MD) Community acquired pneumonia (Acute) Parapneumonic Pleural effusion, left (Acute) Pleuritis (Acute) Heme positive stool (Acute) Non-cardiac chest pain - ACS ruled out (Acute) - Secondary Discharge Diagnosis Chronic Problems (Last Reviewed 03/17/19 @ 07:30 by Mukesh Ugarte MD) Anxiety and depression (Chronic) Iron deficiency anemia (Chronic) Atherosclerosis of coronary artery of [place] heart without angina pectoris (Chronic) IOW-EMM-Cymv LAD 3 x 20 mm Taxus 03/22/2006 History of coronary artery stent placement (Chronic 03/22/06) ZBE-QJC-Pilo LAD 3 x 20 mm Taxus 03/22/2006 Essential (primary) hypertension (Chronic) HLD (hyperlipidemia) (Chronic) Hospital Course and Treatment Imaging Results: Clinical Impression(s) from Imaging Studies Chest X-Ray 03/16/19 19:07 IMPRESSION: Left lung base infiltrate with small effusion. Trace right effusion. Electronically Signed: Jim Hernandez, at 19:34 EDT Tel , Service support , Chest CTA 03/16/19 20:26 IMPRESSION: 1. No evidence of pulmonary embolism or aortic dissection. 2. Left lower lobe peribronchial thickening and airspace disease with small effusion concerning for acute left lower lobe infiltrate and pneumonia in the appropriate clinical setting. Electronically Signed: Luis Moses DO at 21:01 EDT , Service support , Microbiology 03/17/19 09:02 Mucosa - Nasopharyngeal Respiratory Panel (PCR) - Final Negative 03/17/19 08:15 Urine, Clean Catch Streptococcus pneumoniae Antigen (M - Final Negative 03/17/19 08:15 Urine, Clean Catch Legionella Antigen - Final negative 03/17/19 08:15 Stool Stool Occult Blood ([facility]) - Final Positive none Operations: None Procedures: Stress test - Gated SPECT analysis: The gated ejection fraction is noted to be 75%. Conclusion: Normal pharmacologic myocardial perfusion stress test. Preserved ejection fraction. Summary of Care Provided: The patient is a 73-year-old female with a past medical history of hypertension, hyperlipidemia, anxiety/depression, coronary artery disease with PTCA/JESUS to the proximal LAD in February 2006 who presented to the emergency department complaining of chest pain radiating to the left shoulder. The pain was aggravated with coughing and deep breaths. Vital signs in the emergency department were temperature 97.8, pulse rate 66, blood pressure 134/71, respiratory rate 18 and she was 100% saturated on room air. CBC showed a white blood cell count of 7.3 with 71% neutrophils. The hemoglobin was 9.9 with an MCV of 77.5 and normal platelets. D-dimer was mildly elevated at 0.81. Potassium was low at 3.0 and the serum bicarb was elevated at 33. BUN was 14 and the creatinine was 0.74. Troponin was less than 0.015. Chest x-ray showed a left basilar infiltrate with a small effusion. CT of the chest was negative for pulmonary embolism. The left lower lobe infiltrate and L pleural effusion were demonstrated on CT as well as chest x-ray. She was admitted to the hospital with a diagnosis of community-acquired pneumonia. Azithromycin and Rocephin were started in the Ed and continued at admission. On 03/17/19 she had a pharmacologic nuclear stress test and it was negative. She continued to c/o Left lateral chest pain and pain medication was provided. She was seen in the hospital by PT and OT and she was able to walk 200 ft with SBA and no AD on the day of DC. While in the hospital she was noted to have a microcytic anemia and an iron panel was obtained. Serum iron was low at 30 and the TIBC was high normal at 359. Ferritin was low at 5. Hemoccult stool was positive for blood. She was given 1 dose of iron sucrose 200 mg while in the hospital. She was started on an iron supplement at discharge. She tells me that she had a colonoscopy a few months ago that revealed diverticulosis with no other significant findings. She did not have an EGD. She denies any postmenopausal vaginal bleeding. She also denies hematuria. The LDL was 121 and the HDL was 52. The LDL is not adequately controlled because she has a history of coronary artery disease and the goal of treatment should be to maintain LDL at 70 or less. On 03/19/2019 she was afebrile. She had been afebrile for the duration of her hospital stay. Legionella and streptococcal antigens in the urine were negative. The respiratory panel was negative. Blood cultures had no growth in 48 hours. She was discharged home on 03/19/19 with a RX for Ceftin 500 mg BID to finish 7 days of antibiotic therapy for CAP. She was instructed to take a probiotic while on Antibiotics. She will follow up in the office in 5-[address] Armenta. Any further W/U for iron deficiency anemia was deferred to Dr. Armenta. she will need a follow up CXR in 4-6 weeks to document clearing of the infiltrate and effusion in the Left base. She was instructed to take Tylenol for pain. PHYSICAL EXAM: GENERAL: alert, oriented X 3, Cooperative, NAD, lying in bed breathing easily. ORAL: moist mucosa, no mucosal lesions NECK: No JVD, supple, trachea midline LUNGS: few coarse crackles in the left base, no wheezes, no rhonchi, symmetric chest expansion. Not tachypneic, no conversational dyspnea, no accessory muscle use. HEART: RRR, Normal S1 and S2, no rub, no gallop ABDOMEN: soft, NT, ND, BS present, no guarding with palpation EXTREMITIES: no edema, no cyanosis, no calf tenderness SKIN: No rashes, no breakdown NEUROLOGIC: no focal neurologic deficits PSYCH: appropriate, normal affect, pleasant This note was generated with [employer] dictation software. It may contain incorrect words, spelling, and punctuation that were not noted in checking the note before signing. Patient Problems: Active and Suspected Problems (Last Reviewed 03/17/19 @ 07:30 by Mukesh Ugarte MD) Heme positive stool (Acute) Non-cardiac chest pain (Acute) Pleural effusion, left (Acute) Pleuritis (Acute) Community acquired pneumonia (Acute) - Physical Exam Vitals/I&O's: Vital Signs Temp Pulse Resp BP Pulse Ox 97.7 F L 85 17 142/56 H 93 03/19/19 09:49 03/19/19 11:15 03/19/19 09:49 03/19/19 10:10 03/19/19 09:49 Oxygen Delivery Method Room Air Weight: 146 lb 15.997 oz Body Mass Index (BMI) 24.4 Intake and Output for Last 24 Hours 03/17/19 03/18/19 03/19/19 23:59 23:59 23:59 Intake Total 1772.50 / 1772.50 411.25 / 411.25 Balance 1772.50 / 1772.50 411.25 / 411.25 Microbiology Past 72 Hours 03/17/19 09:02 Mucosa - Nasopharyngeal Respiratory Panel (PCR) - Final 03/17/19 08:15 Urine, Clean Catch Streptococcus pneumoniae Antigen (M - Final 03/17/19 08:15 Urine, Clean Catch Legionella Antigen - Final 03/17/19 08:15 Stool Stool Occult Blood ([facility]) - Final Current Medications Acetaminophen (Tylenol) 650 mg PO Q6H PRN PRN PRN Reason: Pain Score 1-3/Temp > 100.7 F Last Admin: 03/17/19 18:19 Dose: 650 mg Documented by: Acetaminophen (Tylenol) 650 mg PO Q6H PRN PRN PRN Reason: Pain Score 1-3 /Temp>100.7 Albuterol Sulfate (Ventolin Aerosols) 2.5 mg INHALATION Q2H PRN PRN PRN Reason: SOB/Wheezing Aspirin (Ecotrin) 81 mg PO DAILY@0800 [facility] Last Admin: 03/19/19 10:09 Dose: 81 mg Documented by: Atorvastatin Calcium (Lipitor) 80 mg PO QHS [facility] Last Admin: 03/18/19 22:05 Dose: 80 mg Documented by: Cholecalciferol (Vitamin D) 5,000 unit PO QWEEK [facility] Clorazepate Dipotassium (Tranxene) 3.75 mg PO TID [facility] Last Admin: 03/19/19 05:35 Dose: 3.75 mg Documented by: Dextrose (D50w Syringe) 0 gm IV X1 PRN; Protocol PRN Reason: Hypoglycemia Enoxaparin Sodium (Lovenox) 40 mg SC DAILY@1000 [facility] Last Admin: 03/19/19 10:10 Dose: 40 mg Documented by: Glucagon () 1 mg IM .X1 PRN PRN Reason: Hypoglycemia Ceftriaxone Sodium (Rocephin) 1 gm in 50 mls @ 100 mls/hr IV Q24H [facility] Last Infusion: 03/18/19 22:33 Dose: Infused Documented by: Azithromycin 500 mg/ Dextrose 255 mls @ 250 mls/hr IV Q24H [facility] Stop: 03/19/19 23:02 Last Infusion: 03/19/19 00:10 Dose: Infused Documented by: Sodium Chloride () 250 mls @ 15 mls/hr IV .[id number] PRN PRN Reason: Saline Flush Last Infusion: 03/19/19 01:15 Dose: Infused Documented by: Metoprolol Tartrate (Lopressor (Beta Sai)) 50 mg PO DAILY [facility] Last Admin: 03/19/19 10:10 Dose: 50 mg Documented by: Metoprolol Tartrate (Lopressor (Beta Sai)) 25 mg PO QHS [facility] Last Admin: 03/18/19 22:08 Dose: 25 mg Documented by: Nitroglycerin (Nitrostat) 0.4 mg SUBLINGUAL Q5M PRN PRN Reason: CARDIAC/CHEST PAIN Nortriptyline HCl (Pamelor) 25 mg PO DAILY [facility] Last Admin: 03/19/19 10:10 Dose: 25 mg Documented by: Nortriptyline HCl (Pamelor) 75 mg PO QHS [facility] Last Admin: 03/18/19 22:05 Dose: 75 mg Documented by: Nutritional Formula (Lactose Free) (Ensure Enlive) 120 ml PO 4X/DAY [facility] Last Admin: 03/19/19 12:13 Dose: Not Given Documented by: Ondansetron HCl (Zofran) 4 mg IV Q8H PRN PRN PRN Reason: NAUSEA/VOMITING Oxycodone HCl (Oxyir) 5 mg PO Q4H PRN PRN PRN Reason: >4 Last Admin: 03/18/19 13:46 Dose: 5 mg Documented by: Sodium Chloride () 10 - 40 ml IV UD PRN PRN Reason: SALINE FLUSH Last Admin: 03/19/19 10:24 Dose: 10 ml Documented by: Discharge Activity: - - Gradually return to normal activity Call your doctor if you observe: Fever of 101 or Higher, Shortness of breath, Dizziness, Fainting spells, Swelling in the ankles, Chest pain, Calf discomfort, - - Call your PCP if severe diarrhea ( > 5 stools a day), painful sores in the mouth, painful swallowing, rash or itching. Taking a probiotic such as Lactobacillus or Kefir can help with loose stools while taking antibiotics. Home Medications: Medications to take at Discharge cholecalciferol (vitamin D3) 5,000 unit capsule 5,000 unit PO QWEEK 01/11/18 clorazepate dipotassium 3.75 mg tablet 3.75 mg PO TID 01/11/18 metoprolol tartrate 25 mg tablet 25 mg PO BID 01/11/18 nortriptyline 25 mg capsule 25 mg PO DAILY cap 01/12/19 Cefuroxime Axetil [Ceftin] 500 mg PO BID #16 tab 03/19/19 Ferrous Sulfate [Iron] 325 mg PO DAILY #30 tab 03/19/19 Following Prescrptions Were Given to Patient: Cefuroxime Axetil [Ceftin] 500 mg PO BID #16 tab Transmission Status: Received by [id number] Ferrous Sulfate [Iron] 325 mg PO DAILY #30 tab Prescription Printed Primary Care Physician: Alisson Armenta MD [Primary Care Provider] - Please follow up with your Primary Care Physician in: 5-7 days Disposition: Home Minutes spent on discharge:: 35 Patient Condition:: Good Medical Necessity - Tobacco Use Smoking Status: Never smoker - But reports secondhand smoking from . Tobacco Use: Non-smoker Meaningful Use Info Meaningful Use Diagnoses (Choose all that apply): None applicable Code Visit Inpatient E&M: 58673 Disch Hosp
--- NOTE | 2019-03-19 13:26 | NURSING ---
Patient's home medication Tranxene was counted by this nurse and Demario Copeland publicity expert Nurse. Count was 100 tablets. Patient's home medication was returned to her. Patient placed same in her purse.
--- NOTE | 2019-03-20 14:38 | CASEMGMT ---
Case Management DC F/u Call: DC Date: 03/19/19 DC Diagnosis: Heme positive stool (Acute), Non-cardiac chest pain (Acute), Pleural effusion, left (Acute), Pleuritis (Acute), Community acquired pneumonia (Acute) DC Disposition: Home Lace/Strata: 01/24 Called patient home phone on listed demographics, no answer, voice message does not identify correct patient and therefore no VM was left. Chase Starr RNCM
== END 2019-03-19 15:07 | disposition home or self-care (01) | DRG 194 ==
LOC: ED 21:45 → PCU 23:17
PROVIDERS: Admitting Provider Hospitalist; Emergency Provider Emergency Medicine; Family Provider Internal Medicine; PCP Internal Medicine; Referring Provider Hospitalist; Visit Provider Internal Medicine
DX: J18.9 Pneumonia, unspecified organism (principal); J91.8 Pleural effusion in other conditions classified elsewhere; I25.10 Atherosclerotic heart disease of native coronary artery without angina pectoris; E87.6 Hypokalemia; I10 Essential (primary) hypertension; D50.9 Iron deficiency anemia, unspecified; R19.5 Other fecal abnormalities; R09.1 Pleurisy; F32.9 Major depressive disorder, single episode, unspecified; F41.9 Anxiety disorder, unspecified; Z95.5 Presence of coronary angioplasty implant and graft
CPT/HCPCS: 36415; 71045; 71275; 78452; 80048; 80061; 80076; 82274; 82728; 83540; 83550; 83735; 84484; 85025; 85379; 87040; 87449; 87633; 93005; 93017; 97116; 97162; 97166; 97802; 99285; A9500; J1756; J7040; J7050; Q9967; A4216; J2785

== ENCOUNTER 2019-03-20 14:06 | Emergency (ER) | payer MEDICARE, SELFPAY ==
[2019-03-16 22:37] VITALS: BMI 24.4
[2019-03-20 14:07] VITALS: BP 118/79; PULSE 80; RESP 14; TEMP 36.7; O2SAT 97; BMI 23.9
[2019-03-20 15:11] VITALS: RESP 18
--- NOTE | 2019-03-20 15:13 | VDUE_ITS ---
Reason For Study: Pain/swelling Right Proximal Left Proximal Right subclavian vein is spontaneous, widely Left jugular vein is spontaneous, widely patent, phasic, with no intraluminal patent, phasic, with no intraluminal echogenicity noted. echogenicity noted. Left subclavian vein is spontaneous, widely patent, phasic, with no intraluminal echogenicity noted. Left Arm Left axillary vein is spontaneous, patent, phasic, competent, compressible and demonstrates augmentation. Left brachial vein is compressible. Acute superficial vein thromosis is noted in the left cephalic vein from antecube to below mid bicep. Left basilic vein is compressible. Left Lower Arm Left radial vein is compressible. Left ulnar vein is compressible. Patient Safety Prelim to Angelita. Interpretation Summary Deep veins of the left upper extremity are patent and compressible segmentally. There is no evidence of deep vein thrombosis. Acute superficial thrombophlebitis is noted in the left cephalic vein from the left antecubital space to just distal to the left mid-bicep. The left basilic vein is patent and compressible. Ordering Physician: Quinton Goldstein Referring Physician: Alisson Armenta M.D. Performed By: Ivette Michaud RVT ?
--- NOTE | 2019-03-20 15:21 | ED.DCSUM_ITS ---
History of Present Illness Chief Complaint: Wound Check Informant: Patient Onset: Today Narrative: Presents for wound check left antecubital. Increasing redness and pain this morning. Just discharged from hospital yesterday for pneumonia after 3-day stay. States had initial IV placed there from the ER, this was removed and changed 2 days ago. However symptoms were not noticed until today. No fevers, no chest pains. States improving dyspnea from her pneumonia. She is on antibiotics. No other complaints. Prior similar symptoms: No Past Medical History - Allergies and Home Meds Allergies/Adverse Reactions: Allergies iodine Allergy (Verified 03/20/19 14:10) doesnt feel well Primary Care Physician: Alisson Armenta MD [Primary Care Provider] - Smoking Status: Never smoker - Family History Paternal Family History: Family History (Last Reviewed 03/17/19 @ 07:30 by Mukesh Ugarte MD) Father No problems noted. Mother CHF (congestive heart failure) Family History: Reports: Heart Disease Review of Systems General: Denies: Chills, Fever, Sweats Eyes: Denies: Visual changes - bilaterally, Diplopia ENT: Denies: Rhinorrhea, Sore throat Cardiovascular: Denies: Chest pain, Palpitations Respiratory: Denies: Dyspnea, Cough, Dyspnea on exertion Gastrointestinal: Denies: Abdominal pain, Nausea, Vomiting, Diarrhea, Melena, Hematochezia Genitourinary: Denies: Dysuria, Hematuria, Frequency Musculoskeletal: Denies: Back pain, Extremity Pain Skin: Reports: Wounds. Denies: Rash Neurological: Denies: Headache, Weakness, Numbness Physical Exam Vital Signs/Narrative: Vital Signs Temp Pulse Resp BP Pulse Ox 03/20/19 15:11 18 03/20/19 14:07 98.1 F 80 14 118/79 97 Inital Vital Signs reviewed: Yes General: Well nourished, Well developed, No Acute Distress Head: Normocephalic, Atraumatic Eyes: Perrl, EOMI ENT: Moist mucous membranes, No rhinorrhea Neck: Supple, Nontender Cardiovascular: Regular rate, Regular rhythm, No murmurs Respiratory: No distress, CTA bilaterally, Chest nontender Abdomen: Soft, Nontender, Nondistended, Normal bowel sounds Back: Nontender, Normal Inspection Extremities: No edema, - - Left upper extremity: Antecubital, there is slight induration with erythema proximal. There is tenderness along the vein lines. No active drainage. Pulses are intact distally. Skin: Normal color, No rash Neurological: Alert, Oriented x3, Cranial nerves II-XII grossly intact, Normal Strength, Normal Sensation Psychological: Normal affect, Normal Mood Diagnostic/Tx/Re-eval - Medical Decision Making Exam concerns for superficial thrombophlebitis clinically, however will obtain ultrasound to rule out any DVT in the left upper extremity. Results of ultrasound discussed with software support technician confirms a superficial thrombophlebitis, she states there is a superficial clot however no deep clot. Patient currently on antibiotics for her pneumonia. Discussed adjuvant treatment with warm compresses, Tylenol or Motrin as needed. Signs and symptoms discussed return. Otherwise follow-up with her PCP. All questions were answered. ED Disposition - Plan for ED Patient: Disposition: Home or Assisted Living Diagnosis: Thrombophlebitis arm Instructions: THROMBOPHLEBITIS, Superficial Referrals: Alisson Armenta MD [Primary Care Provider] - 3-5 Days Additional Instructions: Ultrasound your left arm notes superficial thrombophlebitis of the arm. There is no deep vein thrombosis. Finish your antibiotics as written for your pneumonia. Warm compresses, monitoring for worsening symptoms. Follow-up with your doctor.
[2019-03-20 16:42] VITALS: BP 140/59; PULSE 65; RESP 16; O2SAT 99
== END 2019-03-20 16:43 | disposition home or self-care (01) ==
PROVIDERS: Emergency Provider Emergency Medicine; Family Provider Internal Medicine; PCP Internal Medicine
DX: I80.8 Phlebitis and thrombophlebitis of other sites (principal)
CPT/HCPCS: 93971; 99282

== ENCOUNTER 2019-07-11 15:30 | Outpatient (RCR) | payer MEDICARE, SELFPAY ==
[2019-01-12 12:35] VITALS: BMI 24.7
--- NOTE | 2019-03-10 14:57 | HP.PTEVAL_ITS ---
Patient's Visit Information LAVELLE RUEDA is a 73 year old F referred to Physical Therapy by Alisson Armenta MD with a diagnosis of Balance problem, neuroapthy. Date of Evaluation: 03/10/19 Physical Therapist: Chano Rivera, DPT, OCS, CSCS - Visit Plan Frequency: 2x /Week Duration: 4-6 Weeks Plan: 2x/week for 4-6 weeks for. 1. Teach general posture and LE WB exercises to help with floor and bed mobility and work to I. 2. weight shifting and vestibular VOR/foam/ec balance ex to home I. - Subjective Findings: Diagnosed with neuropathy. Not sure what that is from. has been present3+ years. Diagnosed with Lupus from Dr. Wells but then says she doesnt have that. Dr. Marquez sent for VAV whcih showed for neuropathy. Has pain in feet that is worsening. Has gotten orthoitcs whcih have helped. Also g ot compression hose whcih help. Got medicated cream whcih helps. Those make pain tolerable. No meds as she was given them but didn't help. 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 Has problems walking including balance. When she walks she has to be slow. Occasionally her foot drags and pulls her off balance. No cane or walker. Has a couple falls with the latest one being on a rug in the bathroom. Often has to hod on to the wall when moving in one direction. Sleeping is less than adequate whcih is normal for her. 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 Can do most of these as long as she is slow and careful but it is annoying. Enjoys gardening whcih is tricky due to the uneven surface. Basic ADLs are OK, has someone to help her clean as she is slow especially on the steps which have a railing. - Objective Walks I on firm flat surface into PT. Slow gait and poor weight shifting. Trasnfers with labor without EU out of chair. steps require handrail for safety and show weakness in hip muscles. coordination in LE to reciprocal toe adn heel tap is slight deficits. Sensation to gross light touch is WNL. ROM LE is tight in DF and gastroc /hamstrings. reflexes 0/3 patella and achilles. Strength hips 3+ abd and ext adn flex, knees 4/5 adn ankles 4+/5 . - Balance Scores Functional Gait Assessment Score: 23 % Disability: 23.3400 CATSIB Score (Max score 120 seconds): 98 - Goals Goal 1:: FGA of to reduce fall risk. Goal Time Frame: 4-6 Weeks Goal 2:: Patient walk with normal gait speed adn exit chair without difficulty or multiple attempts Goal Time Frame: 4-6 Weeks Goal 3:: Pt feel balance is 75% improved adn I in ex to keep progressing. Goal Time Frame: 4-6 Weeks - Rehabilitation Potential Physical Therapy Diagnosis: balance problem, neuropathy. Rehabilitation Potential: Fair - Anticipated Interventions Patient/Client Instruction: Educate patient on: Condition, Plan of Care For the Purpose of:: To improve ability of physical actions for home/community/work/leisure, To improve gait and locomotor functions, To improve safety with gait Therapeutic Exercise to Include: Strength training, Postural training, Flexibilty training, Gait and locomotor training, Active ROM For the Purpose of:: To improve muscle performance and motor function, To increase tolerance to activity/condition/position, To improve ability of physical actions for home/community/work/leisure, To improve gait and locomotor functions, To improve health of tissue, To decrease soft tissue restriction, To improve balance Thank you for the opportunity to evaluate your patient. For Medicare and Medicare HMO plans, please review the plan of care and approve it. It will need to be FAXED BACK to us at [phone] for Medicare purposes. For Medicare only, by signing this I certify the plan of care. Please let me know if there are questions or concerns regarding this plan of care. Physician Signature: Date:
--- NOTE | 2019-04-28 15:56 | HP.PTREVAL_ITS ---
Alisson Armenta MD, It has been my pleasure to treat LAVELLE RUEDA over the last 6 visits for Balance problem, neuroapthy. Please see the progress note below for an update on the physical therapy plan of care! Subjective: Getting better. Walking faster. Not dragging feet anymore. Taking Iron has helped improve feeling in feet. Safer. Getting up from chair is easy and without assistance. Needs help still on steps. did not do ex at home. Objective/Function: vor WALKING STILL CHALLENGING. sTEPPING OVER IS A C HALLENGE. Pt more confident adn trasnferring out of chair I, still slow and hesitant moving at first but improved. Tends to keep weight posterior on steps through heel making clearing step hard at times but can do it with UE. OVERALL IMPROVING Plan Plan: 2x/week x 4 weeks appropriate to cotnue work on VOR giat, FW weight shift with steps adn walking upper level challenges ...turns, bends , step overs AND progress to I balance HEP to compliment totori's strengthening ex at home. Goals Goal 1:: FGA of to reduce fall risk. Goal Time Frame: 4-6 Weeks Goal Progress: Goal Met Goal 2:: Patient walk with normal gait speed adn exit chair without difficulty or multiple attempts Goal Time Frame: 4-6 Weeks Goal Progress: still slow, but transfer Goal 3:: Pt feel balance is 75% improved adn I in ex to keep progressing. Goal Time Frame: 4-6 Weeks Goal Progress: Progressing Goal 4:: Up and down steps without needing railing Goal Time Frame: 4-6 Weeks Goal Progress: NEW GOAL Goal 5:: VOR walking at normal speed without wobbling Goal Time Frame: 4-6 Weeks Goal Progress: NEW GOAL Goal 6:: FGA to diminish fall risk. Goal Time Frame: 4-6 Weeks Goal Progress: NEW GOAL Anticipated Interventions Patient/Client Instruction: Educate patient on: Condition, Plan of Care For the Purpose of:: To improve ability of physical actions for home/community/work/leisure, To improve gait and locomotor functions, To improve safety with gait Therapeutic Exercise to Include: Strength training, Postural training, Flexibilty training, Gait and locomotor training, Active ROM For the Purpose of:: To improve muscle performance and motor function, To increase tolerance to activity/condition/position, To improve ability of physical actions for home/community/work/leisure, To improve gait and locomotor functions, To improve health of tissue, To decrease soft tissue restriction, To improve balance Please do not hesitate to contact me at [phone] by phone or Fax: if you have questions or concerns regarding this new plan of care! Sincerely, Chano Rivera, DPT, OCS, CSCS
--- NOTE | 2019-08-29 13:33 | HP.PT.NRP ---
LAVELLE RUEDA was seen in my office for initial evaluation on 03/10/19. The following Plan of Care was established for this patient: Initial Frequency: 2x /Week Initial Duration: 4-6 Weeks Patient/Client Instruction: Educate patient on: Condition, Plan of Care For the Purpose of:: To improve ability of physical actions for home/community/work/leisure, To improve gait and locomotor functions, To improve safety with gait Therapeutic Exercise to Include: Strength training, Postural training, Flexibilty training, Gait and locomotor training, Active ROM For the Purpose of:: To improve muscle performance and motor function, To increase tolerance to activity/condition/position, To improve ability of physical actions for home/community/work/leisure, To improve gait and locomotor functions, To improve health of tissue, To decrease soft tissue restriction, To improve balance This patient was last seen in our office 07/11/19. Pertinent comments regarding their Physical therapy will appear below: Pt seen 15 visits of her POC with numerous cancels adn no shows throughout. She was 75% better at her last recheck but she cancelled her last visit without rescheduling. At this point, it has been nearly two months adn I will discontinue due to nonattendance. At this point I will be discontinuing this patient from physical therapy. I would be happy to see this patient again in the future if found appropriate by the physician. Thank you! Chano Rivera, DPT, OCS, CSCS
== END 2019-07-11 19:00 | disposition home or self-care (01) ==
LOC: PT 15:30
PROVIDERS: Family Provider Internal Medicine; PCP Internal Medicine; Visit Provider Internal Medicine
DX: R26.89 Other abnormalities of gait and mobility (principal); G60.9 Hereditary and idiopathic neuropathy, unspecified
CPT/HCPCS: 97110; 97162; 97164; 97530

== ENCOUNTER 2020-10-30 17:16 | Observation (INO) | payer MEDICARE, SELFPAY ==
[2020-01-16 12:59] VITALS: BMI 23.9
[2020-10-30] VITALS (18 sets, daily range): BP systolic 129–190; BP diastolic 61–98; PULSE 52–63; RESP 13–20; TEMP 36.1–36.8; O2SAT 93–99; BMI 25.0
--- NOTE | 2020-10-30 17:24 | EKG12_ITS ---
Test Reason : CHEST PAIN Blood Pressure : / mmHG Vent. Rate : 060 BPM Atrial Rate : 060 BPM P-R Int : 150 ms QRS Dur : 100 ms QT Int : 644 ms P-R-T Axes : 055 028 074 degrees QTc Int : 644 ms Normal sinus rhythm Nonspecific T wave abnormality Prolonged QT Abnormal ECG Confirmed by MILAN DELANEY, ASHANTI ([id number]), photo editor SARAI SALGADO ([id number]) on 11/01/2020 8:38:47 AM Referred By: LEIGH Confirmed By:ASHANTI YATES MD
--- NOTE | 2020-10-30 17:26 | ED.VIS.CHEST ---
HPI History of Present Illness Chief Complaint: Chest Pain Informant: patient Onset/Context/Timing Onset: Hours (Onset 12 noon) Activity at onset: sudden and onset (While eating) Timing: Continuous Quality: Positive for Burning Location: Substernal and Left Parasternal Current Severity: Mild Maximum Severity: Moderate Worsened By: Nothing Relieved By: Nothing Associated Symptoms: Negative for Nausea, Vomiting, Diaphoresis, Dyspnea, Cough, Fever, Lightheadedness, Acid Reflux and Palpitations Narrative Narrative: Patient is an elderly woman with history of coronary disease status post post placement of stent 15 years ago, essential hypertension, hyperlipidemia and iron deficiency anemia who presents with heartburn that is retrosternal left parasternal area. Nothing alleviates or exacerbates her symptoms. This occurred while eating. She states she has eaten this food before without symptoms. She does have stomach issues. This is different type of pain that she has with her stomach issues . Her stool is dark because she is on iron. She denies black or maroon-colored stool. She denies fever, chills night sweats. She denies ocular, visual auditory symptoms. She denies orthopnea or PND. She denies dyspnea on exertion. She is status post appendectomy at the age of 7. She denies intolerance to greasy or fried foods. She states she is very careful with regards to what she eats because of her stomach issues . She denies history of VTE. Denies leg pain, swelling discoloration. She has no risk factors for VTE. She denies history of congestive heart failure. Prior Similar Symptoms: No Recent Illness/Hospitalization: No CVD Risk Factors: Positive for Hypertension and Hypercholesterolemia; Negative for Diabetes, Family History 1' </=55 and Smoking PE Risk Factors: Negative for Recent Travel/Surgery, Recent Immobilization, Prior DVT or PE, Cancer and OCP + Smoking + >/=35 TAD Risk Factors: Positive for Hypertension; Negative for Marfan's Syndrome and Family History [facility] Medical History (Updated 10/30/20 @ 18:[address] Jaren Miller MD) ACS (acute coronary syndrome) Anxiety Anxiety and depression Atherosclerosis of coronary artery of [place] heart without angina pectoris Community acquired pneumonia Essential (primary) hypertension Heme positive stool HLD (hyperlipidemia) Hypokalemia Iron deficiency anemia Lupus Non-cardiac chest pain Osteoarthritis Pleural effusion, left Pleuritis Home Medications cholecalciferol (vitamin D3) 125 mcg (5,000 unit) capsule 5,000 unit PO QWEEK 01/11/18 [History Last Taken 03/15/19 08:00 5,000 unit] clorazepate dipotassium 3.75 mg tablet 3.75 mg PO TID 01/11/18 [History Last Taken 03/16/19 08:00 3.75 mg] metoprolol tartrate 25 mg tablet 25 mg PO BID 01/11/18 [History Last Taken 03/16/19 08:00 25 mg] nortriptyline 25 mg capsule 25 mg PO DAILY cap 01/12/19 [History Last Taken 03/16/19 08:00 25 mg] ferrous sulfate 325 mg PO DAILY #30 tab 03/19/19 [Rx Last Taken Unknown] aspirin 81 mg tablet,delayed release 81 mg PO QDAY #90 tab 01/16/20 [Rx Last Taken Unknown] atorvastatin 20 mg tablet 20 mg PO QHS #90 tablet 09/12/20 [Rx Last Taken Unknown] Allergy/AdvReac Type Severity Reaction Status Date / Time iodine Allergy doesnt Verified 10/30/20 17:19 feel well Family History Father No problems noted. Mother CHF (congestive heart failure) Surgical History History of coronary artery stent placement (03/22/06) Hx of appendectomy Status post laser cataract surgery of left eye Social History (Updated 10/30/20 @ 17:[address] Jaren Miller MD) household members: spouse housing: house Smoking Status: Never smoker alcohol intake: current alcohol intake frequency: other substance use type: does not use ROS ROS ED Constitutional Constitutional ED: Denies chills, fever(s), subjective, sweats or weight loss Eyes Eyes: Denies blurry vision, change in vision or diplopia ENT ENT ED: Denies ear pain, rhinorrhea or sore throat Cardiovascular Cardiovascular: Reports chest pain; Denies orthopnea, palpitations, paroxysmal nocturnal dyspnea or racing heartbeat Respiratory/Chest Respiratory/Chest: Denies cough, dyspnea, dyspnea on exertion, orthopnea, paroxysmal nocturnal dyspnea or sputum Gastrointestinal Gastrointestinal: Denies abdominal pain, constipation, diarrhea, melena, nausea or vomiting Genitourinary Genitourinary ED: Denies dysuria, hematuria or urinary frequency Musculoskeletal Musculoskeletal: Denies arthralgias, back pain, myalgias or neck pain Integumentary Denies abscess or rash Neurologic Neurologic: Denies headache(s) or weakness Hematologic/Lymphatic Hematologic/Lymphatic: Denies easy bleeding or easy bruising EXAM Physical Exam Const Vital Signs: 10/30/20 17:17 10/30/20 17:22 10/30/20 17:28 Temperature 98.2 F Temperature Source Temporal Pulse Rate 63 Respiratory Rate 20 H Respiratory Effort Normal Non-Labored Blood Pressure 190/98 H Blood Pressure Mean 128 Pulse Ox 98 Oxygen Delivery Method Room Air Room Air 10/30/20 18:06 Temperature Temperature Source Pulse Rate 59 L Respiratory Rate 16 Respiratory Effort Blood Pressure 176/90 H Blood Pressure Mean 118 Pulse Ox 98 Oxygen Delivery Method Room Air Positive well nourished and well developed General Appearance ED: well developed and NAD HEENT Reports moist mucous membranes HEENT Narrative: Uvula midline. Posterior pharynx no erythema or exudate. normocephalic and atraumatic Eyes PERRL and EOMs intact bilaterally General Eye ED: Negative for pale conjunctiva or scleral icterus Neck no lymphadenopathy, supple and no JVD Chest Wall inspection of chest normal Resp normal respiratory effort and clear to auscultation bilaterally Effort and Inspection: respiratory distress Cardio regular rate, regular rhythm, S1 normal heart sound, S2 normal heart sound and no murmurs GI normal to inspection, nondistended, normoactive bowel sounds, soft to palpation and non-tender Back/Spine no CVA tenderness; Negative for no thoracic nor lumbar tenderness Extremity normal to inspection Extremity Narrative: Minimal pitting edema bilaterally. There is no asymmetry. There is no discoloration. There is no leg vein distention or palpable cords on distribution of deep venous system. There is no tenderness noted either. General Extremety ED: Yes edema; Negative for tenderness General Extremity: edema Neuro oriented x3 and CN's II-XII intact bilaterally Sensorium / Orientation: awake and alert Motor Exam: strength 5/5 throughout Psych mental status grossly normal Skin no rashes or lesions noted Heart Score History: Moderately Suspicious Age: >/= 65 years Risk Factors: >/= 3 Risk Factors or History of CAD Troponin: >/=3 x Normal Limit Score: 7 MDM MDM MDM Narrative Medical decision making narrative: Patient presents with heartburn. This may be due to reflux, esophagitis/gastritis versus cardiac disease. EKG, appropriate blood work and chest x-ray was obtained. Patient was informed at 1747 that her EKG is unchanged from prior. She was informed that her blood count is unremarkable. She states the GI cocktail did not help her heartburn sensation. Lab Data Attestation: I reviewed the patient's lab results. Labs: Laboratory Results - last 24 hr 10/30/20 10/30/20 17:20 17:20 WBC 8.2 RBC 4.95 Hgb 14.4 Hct 44.9 MCV 90.7 MCH 29.1 MCHC 32.1 RDW Std Deviation 42.4 RDW Coeff of Kitty 12.9 Plt Count 255 MPV 11.4 Immature Gran % (Auto) 0.600 Neut % (Auto) 73.7 H Lymph % (Auto) 13.1 L [place] % (Auto) 10.0 Eos % (Auto) 1.6 Baso % (Auto) 1.0 Absolute Neuts (auto) 6.0 Absolute Lymphs (auto) 1.07 Nucleated RBC % 0 Sodium 142 Potassium 3.1 L Chloride 105 Carbon Dioxide 32.0 Anion Gap 5 BUN 10 Creatinine 0.85 Estim Creat Clear Calc 53.53 Est GFR (MDRD) Af Amer 84 Est GFR (MDRD) Non-Af 69 BUN/Creatinine Ratio 11.8 Glucose 96 Calcium 9.1 Troponin I 18.500 H* Radiography Chest X-Ray - ED: 1 View (Single portable chest x-ray performed. Interpreted by me at 1744.), Heart, Mediastinum, Bony Structures, No Acute Disease and Chronic Changes Diagnostic Testing: Radiology Impression Chest X-Ray 10/30/20 17:32 IMPRESSION: No radiographic evidence of acute cardiopulmonary disease. at 1745 Reported and signed by: Joe Aponte MD Electronically Signed: Joe Aponte MD at 17:44 EDT Tel , Service support , EKG Initial EKG: Attestation: I personally reviewed and interpreted this EKG as follows: Interpretation: Sinus Rhythm (Normal sinus rhythm with a ventricular rate of 60. AK interval is 150 ms. QS duration 100 ms. QT duration 644 ms with a QTC of 644 ms, which is prolonged. [place] is normal. There is nonspecific changes noted. Will need to compare to prior.) Comments: Compared to EKG performed on March 17, 2019. At EKG over the sinus bradycardia. The nonspecific changes were noted at that time as well. Treatment and Re-Evaluation Comments:: Case discussed with Dr. Esparza after troponin returned at 18.5. Plan is nitro glycerin drip, Brilinta and take to the [facility] Critical Care Time Critical Care Time: Yes Critical care time (excluding procedures): 30-74 minutes (33 minutes), Including time spent: (History, physical examination, documentation, review of prior records, initiation of treatment and interpretation of laboratory results), Discussing w/Patient &/or Family/Addiction Psychiatrist, Discussing w/Consultants and Arranging Admission or Transfer Discharge Plan Dx/Rx/DC Orders Clinical Impression: Non-ST elevated myocardial infarction (non-STEMI), HLD (hyperlipidemia), Essential (primary) hypertension Disposition Disposition: Acute Care Hospital [facility]
--- NOTE | 2020-10-30 17:32 | RAD_ITS ---
HISTORY: chest pain EXAMINATION/TECHNIQUE: XR Chest 1 View: Portable upright AP chest x-ray COMPARISON: 03/16/19 FINDINGS: LINES/DEVICES: None. LUNGS: No consolidation, edema or effusion. No pneumothorax. MEDIASTINUM AND CARDIOVASCULAR STRUCTURES: Cardiac silhouette not enlarged. Central airways and mediastinal contour are unremarkable. BONES AND SOFT TISSUES: No acute bony abnormalities. RAD/Chest 1 View (Portable) IMPRESSION: No radiographic evidence of acute cardiopulmonary disease. at 1745 Reported and signed by: Joe Aponte MD Electronically Signed: Joe Aponte MD at 17:44 EDT Tel , Service support ,
[2020-10-30 17:36] LABS: Absolute Lymphocyte Count 1.07 X10^3/uL (0.83-4.51); Basophil# 0.08 X10^3/uL; Eosinophil# 0.13 X10^3/uL; Eosinophils% 1.6 % (0-5); Hematocrit 44.9 % (37-47); Hemoglobin 14.4 g/dL (12.0-15.0); Lymphocyte # 1.07 X10^3/ul (0.83-4.51); Lymphocyte % 13.1 % (19-41); Mean Corp Hgb Conc 32.1 g/dL (32-36); Mean Corpuscular Hgb 29.1 pg (27.0-32.0); Mean Corpuscular Volume 90.7 fL (81-99); Mean Platelet Vol. 11.4 fl (6.2-12.0); Monocyte# 0.82 X10^3/uL; NRBC Flagged by Analyzer 0 % (0-5); Neutrophil # 6.02 X10^3/uL (2.7-7.7); Neutrophil % 73.7 % (47-70); Platelet Count 255 K/mm3 (150-450); RBC Distribution Width CV 12.9 % (11.6-14.6); RBC Distribution Width SD 42.4 fl (35.1-43.9); Red Blood Count 4.95 M/mm3 (4.2-5.4); White Blood Count 8.2 K/mm3 (4.4-11.0)
[2020-10-30] MEDS: Mag Hydrox/Al Hydrox/Simeth 30 ML UDC PO (17:38)
[2020-10-30] MEDS: Aspirin 81 MG TAB.CHEW 324 MG PO (17:38)
[2020-10-30 18:05] LABS: Anion Gap 5 (5-15); BUN 10 mg/dL (7-18); BUN/Creat Ratio 11.8 RATIO (10-20); Calcium,Total 9.1 mg/dL (8.5-10.1); Chloride 105 mmol/L (98-107); Creatinine, Serum 0.85 mg/dL (0.55-1.02); EST Glomerular Filtration Rate 69 mL/min (>60); Est Glom Filt Rate - Afr Amer 84 mL/min (>60); Estimated Creatinine Clearance 53.53 ml/min; Glucose 96 mg/dL (74-106); Potassium 3.1 mmol/L (3.5-5.1); Sodium Level 142 mmol/L (136-145)
--- NOTE | 2020-10-30 18:16 | NURSING ---
ICU [facility]
[2020-10-30] MEDS: TICAGRELOR 90 MG TABLET 180 MG PO (18:18)
--- NOTE | 2020-10-30 18:22 | NURSING ---
RN ADVANCED THEN ICU
[2020-10-30] MEDS: Nitroglycerin Infusion 250 ML 3 MG IV (18:25)
--- NOTE | 2020-10-30 18:46 | CON.PCM.CA_ITS ---
Assessment & Plan Assessment/Plan (1) Non-ST elevated myocardial infarction (non-STEMI): PLAN: She appears to have a non-ST elevation myocardial infarction with ongoing chest pain. I would recommend urgent cardiac catheterization. The risk benefits and alternatives have been explained to her she understands and agrees to proceed. She is currently on an intravenous nitroglycerin drip, has received aspirin as well as ticagrelor. Her cardiac catheterization this evening demonstrated the following: Significant 60% proximal left main coronary artery stenosis with dampening of pressures. Left anterior descending artery previously placed stent which is patent with area post stent with 60% stenosis and mismatch. Left circumflex artery with mild disease. Dominant right coronary artery with ostial 60 to 70% stenosis in proximal 60% disease. Left ventriculogram with estimated ejection fraction of 50% with anterior hypokinesis. Based on the above angiographic findings I would recommend transfer to a tertiary care facility for evaluation for coronary bypass graft surgery versus left main stenting. (2) History of coronary artery stent placement: PLAN: She does have a previous stent in the left anterior descending artery. She had previously undergone stress testing we did not demonstrate any evidence of ischemia albeit a pharmacologic stress test. (3) Essential (primary) hypertension: PLAN: Her blood pressure appears to be uncontrolled at this time. Postprocedure we will titrate her medication and consider the addition of an JEET inhibitor. We will continue to titrate her intravenous nitroglycerin for blood pressure control. Would also utilize beta-twyla. (4) HLD (hyperlipidemia): PLAN: She is on a medium intensity statin. This will be continued. HPI Consult Data Date of Consult: 10/30/20 HPI Narrative HPI Narrative: LAVELLE RUEDA, is a 75 F who presents to the emergency room this afternoon with ongoing chest discomfort. She is a lady with a history of coronary artery disease status post angioplasty and stenting of the left anterior descending artery in 2005. She also has a history of hyperlipidemia. She had been doing well and was last seen in the office in December 2019. She presented this afternoon with chest and epigastric discomfort after eating oatmeal. She thought it was indigestion and stuck with it all afternoon until this evening when she presented to the emergency room. She was noted to be hypertensive and still having chest discomfort. EKG did not demonstrate any acute or ongoing changes. I was called from the emergency room due to the persistence of the chest discomfort it was determined to take her to the cardiac catheterization lab emergently. She was started on intravenous nitroglycerin and administered oral ticagrelor. In addition she continued with her aspirin. She is currently in minimal chest discomfort but still with elevated blood pressure. [facility] Medical History ACS (acute coronary syndrome) Anxiety Anxiety and depression Atherosclerosis of coronary artery of [place] heart without angina pectoris Community acquired pneumonia Essential (primary) hypertension Heme positive stool HLD (hyperlipidemia) Hypokalemia Iron deficiency anemia Lupus Non-cardiac chest pain Osteoarthritis Pleural effusion, left Pleuritis Home Medications clorazepate dipotassium 3.75 mg tablet 3.75 mg PO TID 01/11/18 [History Last Taken 10/30/20] metoprolol tartrate 25 mg tablet 25 mg PO BID 01/11/18 [History Last Taken 10/30/20] nortriptyline 25 mg capsule 100 mg PO DAILY cap 01/12/19 [History Last Taken 10/28/20] aspirin [Adult Low Dose Aspirin] 81 mg PO DAILY 10/30/20 [History Last Taken 10/28/20] atorvastatin 20 mg PO QHS 10/30/20 [History Last Taken 10/28/20] cholecalciferol (vitamin D3) 25 mcg PO DAILY 10/30/20 [History Last Taken 10/30/20] ferrous sulfate 325 mg PO DAILY 10/30/20 [History Last Taken 10/30/20] nortriptyline 25 mg PO DAILY 10/30/20 [History Last Taken 10/30/20] Allergy/AdvReac Type Severity Reaction Status Date / Time iodine Allergy doesnt Verified 10/30/20 17:19 feel well Family History Father No problems noted. Mother CHF (congestive heart failure) Surgical History History of coronary artery stent placement (03/22/06) Hx of appendectomy Status post laser cataract surgery of left eye Social History household members: spouse housing: house Smoking Status: Never smoker alcohol intake: current alcohol intake frequency: other substance use type: does not use ROS Constitutional Constitutional: Denies fever(s) or weight loss Eyes Eyes: Reports as per HPI ENT HEENT: Reports as per HPI Cardiovascular Cardiovascular: Reports chest pain at rest and other Details: Constant chest discomfort with minimal radiation, started after eating oatmeal. Respiratory/Chest Respiratory/Chest: Reports other Gastrointestinal Gastrointestinal: Denies change in bowel habits, nausea, vomiting or weight changes Genitourinary Genitourinary: Denies difficulty urinating Musculoskeletal Musculoskeletal: Denies joint stiffness or muscle weakness Integumentary Integumentary: Denies lesions Neurologic Neurologic: Denies dizziness or syncope Psychiatric Psychiatric: Denies anxiety Endocrine Endocrinology: Denies excessive sweating or fatigue Hematologic/Lymphatic Hematologic/Lymphatic: Denies anemia Allergic/Immunologic Allergic/Immunologic: Denies seasonal rhinorrhea Physical Exam Const oriented x3 and healthy appearing Orientation / Consciousness: awake HEENT normocephalic Eyes PERRL and conjunctivae normal Neck supple, no JVD and no carotid bruits Chest inspection of chest normal Resp normal respiratory effort and clear to auscultation bilaterally Cardio Palpation: normal PMI Rate: regular rate Rhythm: regular rhythm Heart Sounds: S1 normal and S2 normal Peripheral Pulses: pulses 2+ throughout GI normal to inspection, nondistended, normoactive bowel sounds Extremity normal to inspection and no clubbing, cyanosis or edema Psych mental status grossly normal Objective Data Vital Signs: Vital Signs Temp Pulse Resp BP Pulse Ox 96.9 F L 60 16 180/88 H 99 10/30/20 18:29 10/30/20 18:29 10/30/20 18:29 10/30/20 18:30 10/30/20 18:29 Oxygen Delivery Method Room Air Weight: 154 lb 12.232 oz Body Mass Index (BMI) 25.0 Intake & Output: Intake and Output for Last 24 Hours 10/28/20 10/29/20 10/30/20 23:59 23:59 23:59 Intake Total 0.25 / 0.25 Balance 0.25 / 0.25 Lab / Micro Data Result Diagrams: 10/30/20 17:20 10/30/20 17:20 Labs: Laboratory Results - last 24 hr 10/30/20 10/30/20 17:20 17:20 WBC 8.2 RBC 4.95 Hgb 14.4 Hct 44.9 MCV 90.7 MCH 29.1 MCHC 32.1 RDW Std Deviation 42.4 RDW Coeff of [place] 12.9 Plt Count 255 MPV 11.4 Immature Gran % (Auto) 0.600 Neut % (Auto) 73.7 H Lymph % (Auto) 13.1 L [place] % (Auto) 10.0 Eos % (Auto) 1.6 Baso % (Auto) 1.0 Absolute Neuts (auto) 6.0 Absolute Lymphs (auto) 1.07 Nucleated RBC % 0 Sodium 142 Potassium 3.1 L Chloride 105 Carbon Dioxide 32.0 Anion Gap 5 BUN 10 Creatinine 0.85 Estim Creat Clear Calc 53.53 Est GFR (MDRD) Af Amer 84 Est GFR (MDRD) Non-Af 69 BUN/Creatinine Ratio 11.8 Glucose 96 Calcium 9.1 Troponin I 18.500 H* Cardiology Labs/Tests 10/30/20 17:20: WBC 8.2, RBC 4.95, Hgb 14.4, Hct 44.9, MCV 90.7, MCH 29.1, MCHC 32.1, Plt Count 255, MPV 11.4, Immature Gran % (Auto) 0.600, Neut % (Auto) 73.7 H, Lymph % (Auto) 13.1 L, [place] % (Auto) 10.0, Eos % (Auto) 1.6, Baso % (Auto) 1.0, Absolute Neuts (auto) 6.0, Nucleated RBC % 0 10/30/20 17:20: Sodium 142, Potassium 3.1 L, Chloride 105, Carbon Dioxide 32.0, Anion Gap 5, BUN 10, Creatinine 0.85, Est GFR (MDRD) Af Amer 84, Est GFR (MDRD) Non-Af 69, BUN/Creatinine Ratio 11.8, Glucose 96, Calcium 9.1, Troponin I 18.500 H* Rhythm: EKG: Normal sinus rhythm with nonspecific ST changes ECHO: Stress Test: Cardiac Cath: PCI: CT Surgery: Holter monitor: EPS: PPM: CXR: Chest CT Scan: Radiography Diagnostic Testing: Radiology Impression Chest X-Ray 10/30/20 17:32 IMPRESSION: No radiographic evidence of acute cardiopulmonary disease. at 1745 Reported and signed by: Joe Aponte MD Electronically Signed: Joe Aponte MD at 17:44 EDT Tel , Service support ,
--- NOTE | 2020-10-30 19:00 | ED.RN ---
1847 nitro titrated to 15mcg/min or 9mls an hour. rates pain 7/10, describes it as burning pressure. emotonal support provided.
--- NOTE | 2020-10-30 19:51 | CL.D_ITS ---
Patient Name: LAVELLE RUEDA Study Date: 10/30/2020 Performing: Adrien Sanabria MD Ht: 66 inches 168 cm : 1945 Wt: 154.5 lbs 70 kg Age: 75 Gender: female BSA: 1.79 PROCEDURE(S) PERFORMED [id number]/LV CLINICAL PROFILE AND INDICATIONS Indications: ACS <= 24 hrs Heart Failure: None Stress/Imaging Stress/Image Study Performed: No CONCLUSIONS Moderately severe left main coronary artery disease with pressure dampening, mild anterior hypokinesi s, moderately severe right coronary artery with pressure dampening, despite patient being on intraven ous nitroglycerin RECOMMENDATIONS Consideration for coronary artery bypass surgery or left main stenting DESCRIPTION OF PROCEDURE The patient arrived to the procedure lab. The risks and benefits of the procedure as well as a full d escription of our services here and current unavailability of surgical backup were fully explained to the patient and/or their significant other prior to the catheterization. The Timeout was completed, verifying the correct patient and procedure. The patient's procedural site was prepped and draped in the usual fashion. Local anesthetic was given subcutaneously to right radial region with Lidocaine 2% . Using a modified Seldinger technique, arterial access was obtained via the right radial artery, a 6 Fr sheath was inserted. Left Coronary Artery selective angiography was performed in multiple views u sing a 5 Fr. 4.0 [place] catheter. Right Coronary Artery selective angiography was then performed in mu ltiple views using a 5 Fr. 4.0 [place] catheter. Left Ventriculography was performed in [place] projection using a 5 Fr. [place] catheter. LV to AO pullback pressures were then recorded.The arterial sheath was pulled and a TR Band was applied for hemostasis w/ 13ml air CORONARY ANGIOGRAPHY DOMINANCE: Right Dominant LEFT HEART ASSESSMENT Left Ventricular Ejection Fraction: by LV Gram 50 % Anterior Hypokinesis - Mild Depressed Left Ventricular systolic function Patient was noted to be on 20 mcg/min of intravenous nitroglycerin at the time of procedure. LEFT MAIN: Proximal 60% stenosis with pressure dampening on catheter engagement LEFT ANTERIOR DESCENDING ARTERY: MID LAD: Previously placed stent is patent, Area distal to the stent has a 60% stenosisAnd diffusely diseased LAD CIRCUMFLEX ARTERY: Mild luminal irregularities less than 30% RIGHT CORONARY ARTERY: Proximal 60 to 70% stenosis involving the long area with pressure dampening on catheter engagement. COMPLICATIONS No Complications PROCEDURE MEDICATIONS Versed 1 mg IV Fentanyl 50 mcg IV Benadryl 25 mg IV @ 10/30/2020 19:00:48 Heparin 5000 unit(s) IA 10/30/2020 19:07:49 Nitro glycerin 25mg / 250ml D5W @ 10mcq maintained from the ER 10/30/2020 19:07:58 Nitro glycerin 25mg / 250ml D5W @ 20 mcg/min (increased rate) 10/30/2020 19:19:37 Nitro glycerin 25mg / 250ml D5W @ 25 mcg/min (increased rate) 10/30/2020 19:31:53 Potassium Chloride 10 mEq in 100cc NS 10/30/2020 19:05:22 Solu-medrol 125 mg IV 10/30/2020 19:00:56 SUMMARY OF HEMODYNAMIC DATA Time AIR REST ECG 19:01:24 AO 150/86 (117) SA 19:09:17 LV 178/13, 18 19:21:36 LV 177/12, 18 19:21:42 LV 164/13, 20 19:22:47 LVp 163/13, 20 19:22:50 AOp 168/80 (117) 19:22:55 Signed By Adrien Sanabria MD On 10/30/2020 19:50:15 Adrien Sanabria MD
[2020-10-30] MEDS: Acetaminophen 325 MG Tablet 650 MG PO (22:30)
[2020-10-30] MEDS: Nortriptyline 25 MG Capsule PO (22:33)
[2020-10-30] MEDS: 0.9% Normal Saline 1,000 ML 50 ML IV (22:34)
[2020-10-30] MEDS: Atorvastatin Calcium 20 MG Tablet PO (22:34)
== END 2020-10-31 00:09 | disposition short-term general hospital (02) ==
LOC: ED 18:14 → ICU 10-31 09:41
PROVIDERS: Admitting Provider Internal Medicine Cardiovascular Disease; Emergency Provider Emergency Medicine; PCP Internal Medicine; Visit Provider Internal Medicine Cardiovascular Disease
DX: I21.4 Non-ST elevation (NSTEMI) myocardial infarction (principal); E78.5 Hyperlipidemia, unspecified; I10 Essential (primary) hypertension; D50.9 Iron deficiency anemia, unspecified; I25.10 Atherosclerotic heart disease of native coronary artery without angina pectoris; M19.90 Unspecified osteoarthritis, unspecified site; Z95.5 Presence of coronary angioplasty implant and graft; Z79.899 Other long term (current) drug therapy; Z79.82 Long term (current) use of aspirin; M32.9 Systemic lupus erythematosus, unspecified; E87.6 Hypokalemia
CPT/HCPCS: 71045; 80048; 84484; 85025; 93005; 93458; 96365; 96366; 99152; 99153; 99218; 99285; J7030; Q9967; A4216; C1769; C1894; G0378; J2405

== ENCOUNTER 2020-11-19 21:03 | Emergency (ER) | payer MEDICARE, SELFPAY ==
[2020-10-30 17:17] VITALS: BMI 25.0
[2020-11-19 21:05] VITALS: BP 135/76; PULSE 76; RESP 16; TEMP 35.9; O2SAT 94; BMI 22.8
[2020-11-19 22:12] VITALS: BP 135/77; PULSE 78; RESP 16
--- NOTE | 2020-11-19 22:49 | EKG12_ITS ---
Test Reason : CP Blood Pressure : / mmHG Vent. Rate : 081 BPM Atrial Rate : 081 BPM P-R Int : 114 ms QRS Dur : 088 ms QT Int : 520 ms P-R-T Axes : 064 035 112 degrees QTc Int : 604 ms Sinus rhythm with frequent Premature ventricular complexes Right atrial enlargement T wave abnormality, consider lateral ischemia Prolonged QT Abnormal ECG Confirmed by XIAO DELANEY, MARY ([id number]), television news video editor RIA VAZQUEZ ([id number]) on 11/21/2020 10:51:05 AM Referred By: JESSICA Confirmed By:MARY HAGEN MD
--- NOTE | 2020-11-19 22:50 | ED.VIS.CHEST ---
HPI History of Present Illness Chief Complaint: Chest Pain Narrative Narrative: Patient presents with chest discomfort. She stated it started 4 hours ago when she tweaked her surgical wound when she was being placed in a ambulette while discharge from cardiac rehab. The patient is status post four-vessel bypass 3 weeks ago at [facility]. The patient stated she has had some discomfort from the bypass in this area and it seemed to have exacerbated today when her cot was mathieu. Patient stated that she has not taken anything for it. It is movement related. She is no longer taking pain medication. Denies any other symptoms. Describes it as a sharp discomfort moderate in severity with movement. [facility] Medical History ACS (acute coronary syndrome) Anemia Anxiety Anxiety and depression Atherosclerosis of coronary artery of [place] heart without angina pectoris Community acquired pneumonia Essential (primary) hypertension Heme positive stool HLD (hyperlipidemia) Hypokalemia Iron deficiency anemia Lupus Non-cardiac chest pain Osteoarthritis Pleural effusion, left Pleuritis Home Medications aspirin [Adult Low Dose Aspirin] 81 mg PO DAILY 10/30/20 [History Last Taken 10/28/20] atorvastatin 20 mg PO QHS 10/30/20 [History Last Taken 10/28/20] cholecalciferol (vitamin D3) 25 mcg PO DAILY 10/30/20 [History Last Taken 10/30/20] melatonin 3 mg PO QHS 11/19/20 [History Last Taken Unknown] pantoprazole [Protonix] 40 mg PO DAILY 11/19/20 [History Last Taken Unknown] Allergy/AdvReac Type Severity Reaction Status Date / Time iodine Allergy doesnt Verified 11/19/20 21:11 feel well Family History Father No problems noted. Mother CHF (congestive heart failure) Surgical History History of coronary artery stent placement (03/22/06) History of left heart catheterization (10/30/20) Hx of appendectomy Hx of CABG Status post laser cataract surgery of left eye Social History household members: spouse housing: house Smoking Status: Never smoker alcohol intake: current alcohol intake frequency: other substance use type: does not use ROS ROS ED ROS Narrative ROS General: Denies fever, chills, sweats Eyes: Denies visual changes, blurred vision, double vision ENT: Denies ear pain, rhinorrhea, sore throat Cardiovascular: See HPI Respiratory: Denies dyspnea, cough, sputum, dyspnea on exertion, orthopnea,PND GI: Denies abdominal pain, nausea, vomiting, diarrhea, constipation, melena : Denies dysuria, hematuria, frequency Musculoskeletal: Denies myalgias, arthralgias, neck pain, back pain Skin: Denies rash, abscess, abrasions Neuro: Denies headache, weakness, paresthesia Psych: Denies depression, anxiety Endo: Denies polyuria, polydipsia, polyphagia Heme: Denies easy bruising, easy bleeding, lymphadenopathy Allergy: Denies hives, swelling EXAM Physical Exam Narrative Exam Narrative: Vital signs reviewed General: Well-nourished well-developed Head: Normocephalic atraumatic Eyes: Pupils equal round and reactive to light extraocular movements intact ENT: TMs clear no hemotympanum no trauma Neck: Nontender full range of motion Cardiovascular: Regular rate rhythm no murmurs normal S1-S2 Respiratory: No distress clear to auscultation bilaterally chest tender to palpation inferior portion of the sternum and the lateral ribs bilateral. Patient has decreased range of motion secondary to pain in this area. Her wound is clean dry and intact Abdomen: Soft nontender nondistended normal bowel sounds no masses Back: Nontender no CVA tenderness Extremities: Nontender active range of motion ?4 extremities no trauma Skin: Normal color no trauma. See above Neuro alert oriented cranial nerves II through XII intact normal strength sensation reflexes Const Vital Signs: 11/19/20 21:05 11/19/20 22:12 11/19/20 22:55 Temperature 96.6 F L Temperature Source Temporal Pulse Rate 76 78 Respiratory Rate 16 16 Blood Pressure 135/76 H 135/77 H Blood Pressure Mean 95 96 Pulse Ox 94 Oxygen Delivery Method Room Air Room Air MDM MDM MDM Narrative Medical decision making narrative: Patient was given dose of morphine for her discomfort. I feel this is postoperative musculoskeletal pain. EKG obtained upon arrival shows sinus rhythm at a rate of 81. PVCs noted. No acute ischemia or STEMI. Nonetheless lab work and chest x-ray obtained. Chest x-ray shows a small left pleural effusion by my interpretation otherwise nothing acute. Lab work unremarkable. This includes a negative troponin value high-sensitivity. On reevaluation she does feel better. She was given a second dose of morphine throughout her stay. She is refusing to go back to the alf stated they were offered to her there. She would like to stay in our emergency department until morning when she can be seen by social work position to a new alf. I suspect this is musculoskeletal chest wall discomfort Lab Data Labs: Laboratory Results - last 24 hr 11/19/20 11/19/20 21:35 21:35 WBC 10.3 RBC 4.99 Hgb 14.4 Hct 44.9 MCV 90.0 MCH 28.9 MCHC 32.1 RDW Std Deviation 44.5 H RDW Coeff of Kitty 13.8 Plt Count 396 MPV 11.4 Immature Gran % (Auto) 1.800 H Neut % (Auto) 70.9 H Lymph % (Auto) 14.0 L [place] % (Auto) 11.8 H Eos % (Auto) 0.7 Baso % (Auto) 0.8 Absolute Neuts (auto) 7.3 Absolute Lymphs (auto) 1.44 Nucleated RBC % 0 Sodium 135 L Potassium 3.9 Chloride 100 Carbon Dioxide 27.0 Anion Gap 8 BUN 19 H Creatinine 0.92 Estim Creat Clear Calc 49.46 Est GFR (MDRD) Af Amer 76 Est GFR (MDRD) Non-Af 63 BUN/Creatinine Ratio 20.6 H Glucose 100 Calcium 8.9 Troponin I High Sens 46.2 Radiography Diagnostic Testing: Radiology Impression Chest X-Ray 11/19/20 23:07 IMPRESSION: Small left pleural effusion. Electronically Signed: Ran Garrido MD at 23:19 EDT Tel , Service support , Discharge Plan Triage Chief Complaint: Chest Pain ED Provider: Jamir Hilton Dx/Rx/DC Orders Clinical Impression: Acute chest wall pain Instructions: ED Strain Chest Wall Prescriptions: No Action cholecalciferol (vitamin D3) 25 mcg (1,000 unit) Capsule 25 mcg PO DAILY RF: 0 atorvastatin 20 mg tablet 20 mg PO QHS RF: 0 aspirin [Adult Low Dose Aspirin] 81 mg tablet,delayed release (DR/EC) 81 mg PO DAILY RF: 0 melatonin 3 mg Tablet 3 mg PO QHS RF: 0 pantoprazole [Protonix] 40 mg Tablet,Delayed Release (Dr/Ec) 40 mg PO DAILY RF: 0 Primary Care Provider: Alisson Armenta Referrals: Alisson Armenta MD [Primary Care Provider] - Disposition Disposition: Care Home Facility
[2020-11-19 23:03] LABS: Absolute Lymphocyte Count 1.44 X10^3/uL (0.83-4.51); Absolute Neutrophil Count 7.3 X10^3/uL (2.0-7.7); Basophil# 0.08 X10^3/uL; Basophil% 0.8 % (0-1); Eosinophil# 0.07 X10^3/uL; Eosinophils% 0.7 % (0-5); Hematocrit 44.9 % (37-47); Hemoglobin 14.4 g/dL (12.0-15.0); Lymphocyte # 1.44 X10^3/ul (0.83-4.51); Mean Corp Hgb Conc 32.1 g/dL (32-36); Mean Corpuscular Hgb 28.9 pg (27.0-32.0); Mean Platelet Vol. 11.4 fl (6.2-12.0); Monocyte# 1.22 X10^3/uL; Monocyte% 11.8 % (0-10); NRBC Flagged by Analyzer 0 % (0-5); Neutrophil # 7.31 X10^3/uL (2.7-7.7); Neutrophil % 70.9 % (47-70); Platelet Count 396 K/mm3 (150-450); RBC Distribution Width CV 13.8 % (11.6-14.6); RBC Distribution Width SD 44.5 fl (35.1-43.9); Red Blood Count 4.99 M/mm3 (4.2-5.4); White Blood Count 10.3 K/mm3 (4.4-11.0)
--- NOTE | 2020-11-19 23:07 | RAD_ITS ---
INDICATION: chest pain EXAMINATION/TECHNIQUE: X-RAY - XR Chest 2 Views COMPARISON: 10/30/2020. FINDINGS: The lungs are clear. Sternal cerclage wires and vascular clips are present from a prior sternotomy and coronary artery bypass graft procedure (CABG). Small left pleural effusion. No pneumothorax. Degenerative changes of the thoracic spine. RAD/Chest PA and Lateral IMPRESSION: Small left pleural effusion. Electronically Signed: Ran Garrido MD at 23:19 EDT Tel , Service support ,
[2020-11-19] MEDS: Morphine 4 MG/ML Syringe 2 MG IV (23:08)
[2020-11-19 23:19] LABS: Anion Gap 8 (5-15); BUN 19 mg/dL (7-18); BUN/Creat Ratio 20.6 RATIO (10-20); Calcium,Total 8.9 mg/dL (8.5-10.1); Chloride 100 mmol/L (98-107); Creatinine, Serum 0.92 mg/dL (0.55-1.02); EST Glomerular Filtration Rate 63 mL/min (>60); Est Glom Filt Rate - Afr Amer 76 mL/min (>60); Estimated Creatinine Clearance 49.46 ml/min; Glucose 100 mg/dL (74-106); Potassium 3.9 mmol/L (3.5-5.1); Sodium Level 135 mmol/L (136-145); Troponin-I HS 46.2 pg/mL (3.0-53.7)
[2020-11-20] MEDS: Morphine 2 MG/ML Syringe IV (00:01)
[2020-11-20 00:30] VITALS: BP 132/60; PULSE 74; RESP 16; O2SAT 98
--- NOTE | 2020-11-20 03:37 | ED.RN ---
retirement made aware of patient status and condition at this time
[2020-11-20] MEDS: Morphine 2 MG/ML Syringe IM (05:34)
[2020-11-20 07:14] VITALS: BP 141/69; PULSE 66; RESP 16; O2SAT 94
--- NOTE | 2020-11-20 09:52 | CM.ED ---
Social Work Emergency Department Called by residential driver to see patient regarding discharge disposition. Patient is from [facility] and would like to go to a different nursing facility. 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 Introduced to self and social work role. Patient reported to have just spent 3 weeks at [facility] after having heart surgery and was just admitted to [facility] yesterday. Patient shared her perceived poor experience with a staff member at [facility], in the way that patient was communicated to. Offered supportive listening to patient, as well as emotional support in acknowledging that patient has just gone through a lot of change in a concentrated amount of time. Validated that patient's emotions are real to the patient and explored that having so much change in a short time can also heighten emotions. Patient verbalized agreement. Educated patient limitations of begin able to do a new nursing facility admission from the ED and relation to patient's insurance, which will need a new precert. Educated there is not a reason to admit to the hospital, so any new NF admission must be done from [facility], as a new precert must be obtained. Patient asked about the [facility], as an option. Checked with admissions at [facility] and there are beds to consider new admissions. Educated patient to this information, but reinforced that patient would still have to be accepted, and that a bed available is not an automatic admission. Encouraged patient to talk to the social worker school at [facility] about concerns regarding staff interactions yesterday, work through a new plan, and if patient still wants to go to a new NF to talk to the social worker school about that. This jingle writer also agreed to call [facility]'s social worker school about concerns. Patient expressed understanding and acceptance. Patient's boyfriend Kyle arrived to the ED, so with patients permissions, reviewed above information. Patient brother, Adolph Gaitan, is the reported [facility] and patient asked this jingle writer to update Adolph as well. Called Adolph at [phone] to update. Updated residential driver for the ED. ED will work on transport back to [facility] by ambulance. Plan: Return to [facility], with a request placed for the social worker school at the to speak with patient about wishes for future rehab needs. No other services requested or indicated. -SUZY Posada, MARÍA ELENA
--- NOTE | 2020-11-20 10:48 | ED.RN ---
[facility]ad [facility] social work came and talked with pt. pt is now aggreeable to go back to [facility]
== END 2020-11-20 10:49 | disposition skilled nursing facility (03) ==
PROVIDERS: Emergency Provider Emergency Medicine; PCP Internal Medicine
DX: R07.89 Other chest pain (principal); I25.10 Atherosclerotic heart disease of native coronary artery without angina pectoris; I10 Essential (primary) hypertension; E78.5 Hyperlipidemia, unspecified; M19.90 Unspecified osteoarthritis, unspecified site; Z95.1 Presence of aortocoronary bypass graft; Z79.899 Other long term (current) drug therapy
CPT/HCPCS: 71046; 80048; 84484; 85025; 93005; 96372; 96374; 96376; 99285; A4216

== ENCOUNTER → 2020-12-21 | Outpatient (CLI) | payer MEDICARE, SELFPAY ==
[2020-12-21 22:31] LABS: Color, Urine Yellow (Yellow); Glucose, Dipstick Normal (Normal); Ketone-Dipstick Negative (Negative); Leukocyte Esterase-Dipstick 500 /ul (Negative); Nitrite-Dipstick Positive (Negative); Occult Blood-Urine 50 /ul (Negative); Protein-Dipstick 30 mg/dl (Negative); Specific Gravity, Urine 1.015 (1.002-1.030); Urine Clarity Clear (Clear); Urine Urobilinogen 1 mg/dl (Normal); Urine pH 6.5 (5.0 - 8.0)
[2020-12-21 22:39] LABS: Urine Bilirubin Dipstick 1 mg/dL (Negative)
== END | disposition home or self-care (01) ==
PROVIDERS: PCP Internal Medicine; Visit Provider Internal Medicine
DX: R30.0 Dysuria (principal)
CPT/HCPCS: 81002; 87086

== ENCOUNTER 2020-12-29 09:50 | Emergency (ER) | payer MEDICARE, SELFPAY ==
[2020-12-29 09:51] VITALS: BP 168/80; PULSE 71; RESP 16; TEMP 36.8; O2SAT 99; BMI 22.1
--- NOTE | 2020-12-29 10:11 | CT_ITS ---
EXAM: CT ABDOMEN AND PELVIS WITHOUT INTRAVENOUS CONTRAST : 1945 CLINICAL INDICATION: Abdominal pain TECHNIQUE: Helically acquired images were obtained of the abdomen and pelvis without intravenous contrast. This CT exam was performed using one or more of the following dose reduction techniques: automated exposure control, adjustment of the mA and/or kV according to patient size, and/or use of iterative reconstruction technique. This report was created using [employer] report generation technology. COMPARISON: None. FINDINGS: LOWER THORAX: There is a trace left-sided pleural effusion. Lung bases are clear. No cardiomegaly. ABDOMEN: LIVER: Unremarkable. Homogeneous. GALLBLADDER AND BILE DUCTS: Unremarkable. No calcified gallstones. No gallbladder distention or wall edema. No intra- or extrahepatic biliary ductal dilation. PANCREAS: Unremarkable. No focal cystic mass. SPLEEN: Unremarkable. Normal size without focal cystic or solid mass. ADRENALS: Unremarkable. No nodules. KIDNEYS AND URETERS: Unremarkable. Normal renal size and position. No hydronephrosis. STOMACH AND BOWEL: Unremarkable. No stomach or bowel distention. No focal inflammatory change. PELVIS: APPENDIX: No evidence of acute appendicitis. BLADDER: Unremarkable. REPRODUCTIVE: Unremarkable as visualized. No mass. ABDOMEN and PELVIS: INTRAPERITONEAL SPACE: Unremarkable. No ascites or other fluid collection. No free air. BONES/JOINTS: Unremarkable. No suspicious lytic or blastic abnormality. SOFT TISSUES: There is a curvilinear density seen extending from the subcutaneous tissues of the upper abdomen up behind the inferior sternum along the left upper abdomen of uncertain significance or etiology. Is possible that this was a lead from a battery pack that has been disconnected possibly have is a wire that has come loose from a median sternotomy.. It was not present on a CT scan of the chest dated 03/16/2019 . No discrete abdominal or pelvic wall hernia. VASCULATURE: Unremarkable. Abdominal aorta is non-dilated. LYMPH NODES: Unremarkable. No enlarged lymph nodes. CT/Abdomen/Pelvis without Cont IMPRESSION: Curvilinear density in the subcutaneous tissues of the upper abdomen extending up behind the inferior aspect of the sternum of uncertain significance or etiology. There are no acute abnormalities within the abdomen or pelvis. Individualized dose optimization techniques were used for this CT. at 1101 Reported and signed by: Benjamin Dhaliwal MD Electronically Signed: Benjamin Dhaliwal MD at 10:59 EDT Tel , Service support ,
--- NOTE | 2020-12-29 10:12 | ED.VIS.GI ---
HPI HPI - GI History of Present Illness Chief Complaint: Abd Pain Narrative Narrative: 75-year-old female presenting with diffuse abdominal cramping. She states this has been ongoing for 2 weeks with intermittent severe symptoms. Patient states that she was seen by urgent care about a week ago and had a urinalysis performed due to suprapubic urinary frequency and was told she does not have a urinary tract infection. Patient continues to have nausea pain and crampy abdominal pain. She states that she has bowel movements every other day and sporadic and today she had diarrhea. She states she normally would not have bowel movements more frequently. She denies fever. She states her only abdominal surgery is appendectomy as a child. [facility] Medical History ACS (acute coronary syndrome) Anemia Anxiety Anxiety and depression Atherosclerosis of coronary artery of [place] heart without angina pectoris Community acquired pneumonia Essential (primary) hypertension Heme positive stool HLD (hyperlipidemia) Hypokalemia Iron deficiency anemia Non-cardiac chest pain Osteoarthritis Pleural effusion, left Pleuritis Home Medications aspirin [Adult Low Dose Aspirin] 81 mg PO DAILY 10/30/20 [History Last Taken 10/28/20] atorvastatin 80 mg PO QHS 10/30/20 [History Last Taken 10/28/20] cholecalciferol (vitamin D3) 25 mcg PO DAILY 10/30/20 [History Last Taken 10/30/20] melatonin 3 mg PO QHS 11/19/20 [History Last Taken Unknown] clorazepate dipotassium 3.75 mg tablet 3.75 mg PO BID #22 tab 12/12/20 [Rx Last Taken Unknown] promethazine 25 mg PO TID PRN #14 tab 12/29/20 [Rx Last Taken Unknown] Allergy/AdvReac Type Severity Reaction Status Date / Time iodine Allergy doesnt Verified 12/29/20 09:53 feel well Family History Father No problems noted. Mother CHF (congestive heart failure) Surgical History History of coronary artery stent placement (03/22/06) History of left heart catheterization (10/30/20) History of quadruple bypass History of repair of retinal tear by laser photocoagulation Hx of appendectomy Hx of CABG Social History household members: spouse housing: house Smoking Status: Never smoker alcohol intake: current alcohol intake frequency: other substance use type: does not use ROS ROS ED Constitutional Constitutional ED: Denies chills, fever(s) or sweats Eyes Eyes: Denies blurry vision or change in vision ENT ENT ED: Denies ear pain or sore throat Cardiovascular Cardiovascular: Denies chest pain, palpitations or racing heartbeat Respiratory/Chest Respiratory/Chest: Denies cough, dyspnea or sputum Gastrointestinal Gastrointestinal: Reports abdominal pain, constipation, diarrhea and nausea; Denies vomiting Genitourinary Genitourinary ED: Reports urinary frequency; Denies dysuria or hematuria Musculoskeletal Musculoskeletal: Denies arthralgias, myalgias or neck pain Integumentary Denies abscess, Abrasions or rash Neurologic Neurologic: Denies headache(s), paresthesias or weakness Psychiatric Psychiatric: Denies anxiety, depression, suicidal ideation or suicidal thoughts Endocrine Endocrinology: Denies polydipsia or polyuria EXAM Physical Exam Const Vital Signs: 12/29/20 09:51 Temperature 98.2 F Temperature Source Temporal Pulse Rate 71 Respiratory Rate 16 Blood Pressure 168/80 H Blood Pressure Mean 109 Pulse Ox 99 Oxygen Delivery Method Room Air Positive well nourished General Appearance ED: NAD HEENT Reports moist mucous membranes normocephalic and atraumatic Eyes PERRL and EOMs intact bilaterally General Eye ED: Negative for pale conjunctiva or scleral icterus Resp normal respiratory effort and clear to auscultation bilaterally Cardio regular rate and regular rhythm GI non-distended Auscultation: hypoactive bowel sounds Palpation: soft; Negative for guarding, rigid or rebound tenderness present Back/Spine no CVA tenderness Neuro CN's II-XII intact bilaterally, moves all extremities and no sensory deficits noted Sensorium / Orientation: alert, oriented to person, oriented to place and oriented to time Motor Exam: strength 5/5 throughout Psych mental status grossly normal and thought process normal Skin Lesions: no lesions Rashes: no rashes MDM MDM MDM Narrative Medical decision making narrative: 75-year-old female presenting with diffuse crampy abdominal pain, constipation, diarrhea today. She is not had a fever but does complain of nausea. She had a urinalysis checked about a week ago at the urgent care which was negative. Patient continues to have this diffuse cramping pain and nausea. I did obtain lab work and her CBC is normal. Renal function and electrolytes are also normal. LFTs are normal with exception of a slight elevation of her alkaline phosphatase and her globulin is slightly elevated at 4.3. Lipase is negative. CT of the abdomen pelvis shows no acute abnormalities in the abdomen and pelvis however there does appear to be a curvilinear density in the subcu tissue of the upper abdomen extending behind the inferior aspect of the sternum of uncertain significance. Patient has had four-vessel CABG in the past. The radiologist does speculate whether this can be a lucent wire from that. She is not having any chest pain or pain locally in this region and does describe her abdominal symptoms as diffuse and has been experiencing constipation. Patient was given Zofran on arrival and continue to have nausea and and was subsequently given Phenergan. Urinalysis is negative for infection. Patient counseled on findings and I recommended she follow-up with her rv repair technician who did her sternotomy as this is unclear whether this is a loose sternotomy wire. She is not having any chest pain. I do not believe this will be emergent transfer. Patient feeling improved after Phenergan. She will be discharged home with Phenergan since the Zofran does not work for her. Patient discharged in stable condition. Impression: 1. Nausea/vomiting 2. History of constipation 3. Diarrhea Lab Data Attestation: I reviewed the patient's lab results. Labs: Laboratory Results - last 24 hr 12/29/20 12/29/20 12/29/20 10:00 10:00 11:15 WBC 10.0 RBC 4.49 Hgb 13.0 Hct 41.1 MCV 91.5 MCH 29.0 MCHC 31.6 L RDW Std Deviation 54.5 H RDW Coeff of Kitty 16.8 H Plt Count 383 MPV 10.9 Immature Gran % (Auto) 0.500 Neut % (Auto) 82.5 H Lymph % (Auto) 5.5 L [place] % (Auto) 9.2 Eos % (Auto) 1.4 Baso % (Auto) 0.9 Absolute Neuts (auto) 8.2 H Absolute Lymphs (auto) 0.55 L Nucleated RBC % 0 Sodium 138 Potassium 3.9 Chloride 102 Carbon Dioxide 29.0 Anion Gap 7 BUN 9 Creatinine 0.71 Estim Creat Clear Calc 45.50 Est GFR (MDRD) Af Amer 104 Est GFR (MDRD) Non-Af 86 BUN/Creatinine Ratio 12.7 Glucose 113 H Calcium 9.5 Total Bilirubin 0.40 AST 35 ALT 25 Alkaline Phosphatase 121 H Total Protein 7.9 Albumin 3.6 Globulin 4.3 H Albumin/Globulin Ratio 0.8 L Lipase 150 Urine Color Yellow Urine Clarity Clear Urine pH 7.0 Ur Specific [place] 1.010 Urine Protein Negative Urine Glucose (UA) Normal Urine Ketones Negative Urine Occult Blood Negative Urine Nitrite Negative Urine Bilirubin Negative Urine Urobilinogen Normal Ur Leukocyte Esterase Negative Urine RBC 0 SEEN Urine WBC 0 SEEN Ur Squamous Epith Cells 0-5 SEEN Calcium Oxalate Crystal RARE Urine Bacteria 0 SEEN Urine Mucus 0 SEEN Radiography Diagnostic Testing: Radiology Impression Abdomen/Pelvis CT 12/29/20 10:11 IMPRESSION: Curvilinear density in the subcutaneous tissues of the upper abdomen extending up behind the inferior aspect of the sternum of uncertain significance or etiology. There are no acute abnormalities within the abdomen or pelvis. Individualized dose optimization techniques were used for this CT. at 1101 Reported and signed by: Benjamin Dhaliwal MD Electronically Signed: Benjamin Dhaliwal MD at 10:59 EDT Tel , Service support , Discharge Plan Triage Chief Complaint: Abd Pain ED Provider: Wilmer Marquez Dx/Rx/DC Orders Instructions: ED Abdominal Pain Unkn Cause Fem, ED Vomiting (Adult) Prescriptions: New promethazine 25 mg tablet 25 mg PO TID PRN (Reason: nausea and vomiting) Qty: 14 RF: 0 No Action cholecalciferol (vitamin D3) 25 mcg (1,000 unit) Capsule 25 mcg PO DAILY RF: 0 atorvastatin 20 mg tablet 80 mg PO QHS RF: 0 aspirin [Adult Low Dose Aspirin] 81 mg tablet,delayed release (DR/EC) 81 mg PO DAILY RF: 0 melatonin 3 mg Tablet 3 mg PO QHS RF: 0 clorazepate dipotassium 3.75 mg tablet 3.75 mg PO BID Qty: 22 RF: 0 Primary Care Provider: Alisson Armenta Referrals: Alisson Armenta MD [Primary Care Provider] - Disposition Disposition: Home, Self Care
[2020-12-29 10:16] LABS: Absolute Lymphocyte Count 0.55 X10^3/uL (0.83-4.51); Absolute Neutrophil Count 8.2 X10^3/uL (2.0-7.7); Basophil# 0.09 X10^3/uL; Basophil% 0.9 % (0-1); Eosinophil# 0.14 X10^3/uL; Eosinophils% 1.4 % (0-5); Hematocrit 41.1 % (37-47); Lymphocyte # 0.55 X10^3/ul (0.83-4.51); Lymphocyte % 5.5 % (19-41); Mean Corp Hgb Conc 31.6 g/dL (32-36); Mean Corpuscular Volume 91.5 fL (81-99); Mean Platelet Vol. 10.9 fl (6.2-12.0); Monocyte# 0.92 X10^3/uL; Monocyte% 9.2 % (0-10); NRBC Flagged by Analyzer 0 % (0-5); Neutrophil # 8.21 X10^3/uL (2.7-7.7); Neutrophil % 82.5 % (47-70); POSITIVE DIFFERENTIAL YES; Platelet Count 383 K/mm3 (150-450); RBC Distribution Width CV 16.8 % (11.6-14.6); RBC Distribution Width SD 54.5 fl (35.1-43.9); Red Blood Count 4.49 M/mm3 (4.2-5.4)
[2020-12-29 10:17] LABS: Differential Indicated SCAN CRITERIA MET
[2020-12-29] MEDS: 0.9% Normal Saline 1,000 ML 1000 ML IV (10:21)
[2020-12-29] MEDS: Ondansetron 4 MG/2 ML Vial IV (10:21)
[2020-12-29 10:41] LABS: ALB/GLOB Ratio 0.8 RATIO (0.9-2.4); AST(SGOT) 35 U/L (15-37); Alanine Aminotransfer ALT/SGPT 25 U/L (13-56); Albumin, Serum 3.6 g/dL (3.2-5.0); Alkaline Phosphatase 121 U/L (45-117); Anion Gap 7 (5-15); BUN 9 mg/dL (7-18); BUN/Creat Ratio 12.7 RATIO (10-20); Calcium,Total 9.5 mg/dL (8.5-10.1); Chloride 102 mmol/L (98-107); Creatinine, Serum 0.71 mg/dL (0.55-1.02); EST Glomerular Filtration Rate 86 mL/min (>60); Est Glom Filt Rate - Afr Amer 104 mL/min (>60); Globulin 4.3 g/dL (2.2-4.2); Glucose 113 mg/dL (74-106); Lipase 150 U/L (73-393); Potassium 3.9 mmol/L (3.5-5.1); Protein, Total 7.9 g/dL (6.4-8.2); Sodium Level 138 mmol/L (136-145)
[2020-12-29 11:21] LABS: Bacteria 0 SEEN /hpf (None Seen); Mucous, Urine 0 SEEN /hpf (<or=2+); Red Blood Cells-Urine 0 SEEN /hpf (0-5); White Blood Cells 0 SEEN /hpf (0-5)
[2020-12-29 11:22] LABS: Color, Urine Yellow (Yellow); Glucose, Dipstick Normal (Normal); Ketone-Dipstick Negative (Negative); Leukocyte Esterase-Dipstick Negative /ul (Negative); Nitrite-Dipstick Negative (Negative); Occult Blood-Urine Negative /ul (Negative); Protein-Dipstick Negative (Negative); Urine Bilirubin Dipstick Negative (Negative); Urine Clarity Clear (Clear); Urine Urobilinogen Normal (Normal)
[2020-12-29 11:27] LABS: Calcium Oxalate Crystals Ur RARE /hpf (<or=2+); Squamous Epithelial Cells - UA 0-5 SEEN /hpf (5-10)
[2020-12-29] MEDS: proMETHazine 25 MG Tablet PO (11:49)
[2020-12-29 13:24] VITALS: BP 172/83; PULSE 69; RESP 18
== END 2020-12-29 13:26 | disposition home or self-care (01) ==
PROVIDERS: Emergency Provider Student in an Organized Health Care Education/Training Program; PCP Internal Medicine
DX: R11.2 Nausea with vomiting, unspecified (principal); R19.7 Diarrhea, unspecified; F41.9 Anxiety disorder, unspecified; F32.9 Major depressive disorder, single episode, unspecified; I25.10 Atherosclerotic heart disease of native coronary artery without angina pectoris; I10 Essential (primary) hypertension; E78.5 Hyperlipidemia, unspecified; M19.90 Unspecified osteoarthritis, unspecified site; Z79.899 Other long term (current) drug therapy
CPT/HCPCS: 74176; 80053; 81001; 83690; 85025; 96361; 96374; 99284; J7030; A4216; J2405

== ENCOUNTER 2021-01-02 06:11 | Inpatient (IN) | payer MEDICARE, SELFPAY ==
[2021-01-02] VITALS (10 sets, daily range): BP systolic 137–164; BP diastolic 57–79; PULSE 66–90; RESP 17–20; TEMP 36.5–37.2; O2SAT 96–99; BMI 23.4; BMI 22.8
--- NOTE | 2021-01-02 06:30 | EKG12_ITS ---
Test Reason : GEN ILL Blood Pressure : / mmHG Vent. Rate : 071 BPM Atrial Rate : 071 BPM P-R Int : 144 ms QRS Dur : 088 ms QT Int : 600 ms P-R-T Axes : 044 017 105 degrees QTc Int : 652 ms Normal sinus rhythm Nonspecific T wave abnormality Abnormal ECG Confirmed by XIAO DELANEY, MARY ([id number]), editorial writer RIA VAZQUEZ ([id number]) on 01/07/2021 8:28:49 AM Referred By: Confirmed By:MARY HAGEN MD
--- NOTE | 2021-01-02 06:31 | RAD_ITS ---
STUDY: X-RAY - ACUTE ABDOMINAL SERIES REASON FOR EXAM: Female, 75 years old. Pain TECHNIQUE: Single view of the chest. Supine, and erect view(s) of the abdomen were obtained. COMPARISON: None. FINDINGS: The lungs are clear and expanded. Normal size heart. Sternal wires and mediastinal surgical clips compatible with prior CABG. Normal mediastinum and rafael. Normal visualized pulmonary arteries. Normal visualized aortic arch and descending thoracic aorta. There is a non-specific bowel gas pattern. The soft tissue structures of the abdomen and pelvis are unremarkable. Normal visualized osseous structures. RAD/Acute Abdomen Inc Chest IMPRESSION: Nonacute x-ray examination of the chest, abdomen, and pelvis. Electronically Signed: Rubén Pyle MD ([place]) at 7:29 EDT , Service support ,
--- NOTE | 2021-01-02 06:33 | EDS_ITS ---
HPI <Dr. Adile Melvin MD - Last Filed: 01/03/21 05:52> History of Present Illness Chief Complaint: General Illness Informant: patient Narrative Narrative: Patient presents with nausea and abdominal bloating. History is a little hard to get from her. She states this started 3 days ago. But she was here 4 days ago. She cannot tell me for sure when it started. She is now thinking the nausea may have started a week ago. She states she does not have abdominal pain but she is starting to have abdominal pain. It is diffuse. Is not localized. She states she is nauseated but never vomited. Then she states she might of vomited a couple times but does not know when. She was constipated but the last couple days she has been moving her bowels more normally. She has not had diarrhea. She has not had blood in the stool or melena. She denies any urinary symptoms. She denies back or flank pain. She denies chest pain. She denies trouble breathing. She states she does have a little bit of a cough that might be worse than she has had in the past. When I ask her about the legs that are swollen, evidently those have been swollen ever since her heart surgery. They are not painful. Patient also states that she is having severe anxiety. She has a long history of anxiety and depression but it has gotten worse since bypass surgery. This is keeping her up at night and she is very nervous and anxious. Patient also has Phenergan at home but she forgot that she had this so she did not take any prior to coming in or over the last few days it sounds like. She did have recent work-up including blood work and CT scan that showed no marked abnormalities. [facility] <Dr. Adiel Melvin MD - Last Filed: 01/03/21 05:52> [facility] Medical History ACS (acute coronary syndrome) Anemia Anxiety Anxiety and depression Atherosclerosis of coronary artery of [place] heart without angina pectoris Community acquired pneumonia Essential (primary) hypertension Heme positive stool HLD (hyperlipidemia) Hypokalemia Iron deficiency anemia Non-cardiac chest pain Osteoarthritis Pleural effusion, left Pleuritis Home Medications atorvastatin 80 mg PO QHS 10/30/20 [History Last Taken 10/28/20] cholecalciferol (vitamin D3) 25 mcg PO DAILY 10/30/20 [History Last Taken 10/30/20] melatonin 3 mg PO QHS 11/19/20 [History Last Taken Unknown] clorazepate dipotassium 3.75 mg tablet 3.75 mg PO BID #22 tab 12/12/20 [Rx Last Taken Unknown] promethazine 25 mg PO TID PRN #14 tab 12/29/20 [Rx Last Taken Unknown] amiodarone 400 mg PO DAILY 01/02/21 [History Last Taken Unknown] aspirin 325 mg PO DAILY 01/02/21 [History Last Taken Unknown] escitalopram oxalate 10 mg PO DAILY 01/02/21 [History Last Taken Unknown] ibuprofen 600 mg PO BID 01/02/21 [History Last Taken Unknown] pantoprazole 40 mg PO DAILY 01/02/21 [History Last Taken Unknown] Allergy/AdvReac Type Severity Reaction Status Date / Time iodine Allergy doesnt Verified 01/02/21 06:19 feel well Family History Father No problems noted. Mother CHF (congestive heart failure) Surgical History History of coronary artery stent placement (03/22/06) History of left heart catheterization (10/30/20) History of quadruple bypass History of repair of retinal tear by laser photocoagulation Hx of appendectomy Hx of CABG Social History household members: spouse housing: house Smoking Status: Never smoker alcohol intake: current alcohol intake frequency: other substance use type: does not use ROS <Dr. Adiel Melvin MD - Last Filed: 01/03/21 05:52> ROS ED Constitutional Constitutional ED: Denies chills or fever(s) Eyes Eyes: Denies blurry vision ENT ENT ED: Denies rhinorrhea or sore throat Cardiovascular Cardiovascular: Denies chest pain or palpitations Respiratory/Chest Respiratory/Chest: Reports cough; Denies dyspnea or sputum Gastrointestinal Gastrointestinal: Reports abdominal pain, nausea and other Details: See history of present illness for details. ; Denies constipation, diarrhea, melena or vomiting Genitourinary Genitourinary ED: Denies dysuria or hematuria Musculoskeletal Musculoskeletal: Denies back pain Integumentary Denies rash Neurologic Neurologic: Denies headache(s) Psychiatric Psychiatric: Reports anxiety and depression Endocrine Endocrinology: Denies polydipsia or polyuria Allergic/Immunologic Allergic/Immunologic ED: Denies urticaria EXAM <Dr. Adiel Melvin MD - Last Filed: 01/03/21 05:52> Physical Exam Const Vital Signs: 01/02/21 06:12 01/02/21 06:22 01/02/21 08:08 Temperature 98.2 F Temperature Source Temporal Pulse Rate 79 Respiratory Rate 18 17 Respiratory Effort Normal Respiratory Pattern Normal Blood Pressure 164/72 H 137/79 H Blood Pressure Mean 102 98 Pulse Ox 99 96 Oxygen Delivery Method Room Air 01/02/21 08:53 Temperature 98.1 F Temperature Source Oral Pulse Rate 71 Respiratory Rate 20 H Respiratory Effort Respiratory Pattern Blood Pressure 142/57 H Blood Pressure Mean 85 Pulse Ox 98 Oxygen Delivery Method Room Air Positive well nourished and well developed General Appearance ED: well developed and NAD HEENT Reports moist mucous membranes Negative for trauma Eyes EOMs intact bilaterally Neck no JVD Chest Wall inspection of chest normal Resp normal respiratory effort and clear to auscultation bilaterally Effort and Inspection: pain with movement Auscultation: Negative for rales, rhonchi or wheezes Cardio regular rate and regular rhythm GI normal to inspection, nondistended, normoactive bowel sounds and non-distended GI Narrative: There is no objective tenderness or motion when I pressed on her abdomen. However, she states that it does hurt when I press on it but she cannot localize it to any one area. I feel no mass. There is no distention rebound or guarding. Palpation: soft Back/Spine no CVA tenderness Extremity Extremity Narrative: Patient does have bilateral +1-2 edema. It is equal. There is no distended veins. There is no tenderness or cord. Neuro Sensorium / Orientation: alert Psych Psych Narrative: Patient's awake and alert. She does admit to being severely anxious. She seems to be a bit distracted likely because of this anxiety. We talked about this a bit. It has increased since her bypass surgery but it was not new as it had existed for years prior to that. Mood & Affect: anxious Skin no rashes or lesions noted <Dr. Chano Kaur DO - Last Filed: 01/02/21 15:22> Physical Exam Const Vital Signs: 01/02/21 06:12 01/02/21 06:22 01/02/21 08:08 Temperature 98.2 F Temperature Source Temporal Pulse Rate 79 Respiratory Rate 18 17 Respiratory Effort Normal Respiratory Pattern Normal Blood Pressure 164/72 H 137/79 H Blood Pressure Mean 102 98 Pulse Ox 99 96 Oxygen Delivery Method Room Air 01/02/21 08:53 Temperature 98.1 F Temperature Source Oral Pulse Rate 71 Respiratory Rate 20 H Respiratory Effort Respiratory Pattern Blood Pressure 142/57 H Blood Pressure Mean 85 Pulse Ox 98 Oxygen Delivery Method Room Air <Dr. Adriana Cevallos MD - Last Filed: 01/02/21 10:55> Physical Exam Const Vital Signs: 01/02/21 06:12 01/02/21 06:22 01/02/21 08:08 Temperature 98.2 F Temperature Source Temporal Pulse Rate 79 Respiratory Rate 18 17 Respiratory Effort Normal Respiratory Pattern Normal Blood Pressure 164/72 H 137/79 H Blood Pressure Mean 102 98 Pulse Ox 99 96 Oxygen Delivery Method Room Air 01/02/21 08:53 Temperature 98.1 F Temperature Source Oral Pulse Rate 71 Respiratory Rate 20 H Respiratory Effort Respiratory Pattern Blood Pressure 142/57 H Blood Pressure Mean 85 Pulse Ox 98 Oxygen Delivery Method Room Air MDM <Dr. Adiel Melvin MD - Last Filed: 01/03/21 05:52> [facility] Narrative Medical decision making narrative: Patient presents with nausea but no apparent vomiting. She is moving her bowels well. Her abdomen is relatively benign. I have sent off blood work. Her CBC is okay so far. I am also checking troponin because of her recent bypass surgery about few months ago. She is really not having pulmonary symptoms though. Her CT scan showed no acute process 4 days ago. I am treating her for nausea and anxiety. We will get her results back and recheck the patient. If she needs further studies those may be added. This patient was seen toward the end of my shift and is turned over to the oncoming physician. Lab Data Attestation: I reviewed the patient's lab results. Labs: Laboratory Results - last 24 hr 01/02/21 01/02/21 01/02/21 06:20 06:26 06:26 WBC 9.9 RBC 4.24 Hgb 12.3 Hct 40.2 MCV 94.8 MCH 29.0 MCHC 30.6 L RDW Std Deviation 57.9 H RDW Coeff of Kitty 17.2 H Plt Count 353 MPV 10.8 Immature Gran % (Auto) 0.600 Neut % (Auto) 84.4 H Lymph % (Auto) 6.4 L Geary % (Auto) 6.2 Eos % (Auto) 1.7 Baso % (Auto) 0.7 Absolute Neuts (auto) 8.3 H Absolute Lymphs (auto) 0.63 L Nucleated RBC % 0 Sodium 138 Potassium 3.2 L Chloride 104 Carbon Dioxide 27.0 Anion Gap 7 BUN 10 Creatinine 0.59 Estim Creat Clear Calc 45.50 Est GFR (MDRD) Af Amer 127 Est GFR (MDRD) Non-Af 105 BUN/Creatinine Ratio 16.9 Glucose 119 H Lactic Acid Calcium 9.0 Total Bilirubin 0.40 AST 27 ALT 25 Alkaline Phosphatase 115 Troponin I High Sens 102.0 H* Total Protein 7.4 Albumin 3.4 Globulin 4.0 Albumin/Globulin Ratio 0.8 L Lipase 144 Urine Color YELLOW Urine Clarity Clear Urine pH 6.0 Ur Specific [place] 1.015 Urine Protein Negative Urine Glucose (UA) Normal Urine Ketones Negative Urine Occult Blood 10 H Urine Nitrite Negative Urine Bilirubin Negative Urine Urobilinogen Normal Ur Leukocyte Esterase 25 H Urine RBC 0 SEEN Urine WBC 0 SEEN Ur Squamous Epith Cells 0-5 SEEN Urine Bacteria RARE Urine Mucus 0 SEEN 01/02/21 01/02/21 06:45 09:20 WBC RBC Hgb Hct MCV MCH MCHC RDW Std Deviation RDW Coeff of [place] Plt Count MPV Immature Gran % (Auto) Neut % (Auto) Lymph % (Auto) Geary % (Auto) Eos % (Auto) Baso % (Auto) Absolute Neuts (auto) Absolute Lymphs (auto) Nucleated RBC % Sodium Potassium Chloride Carbon Dioxide Anion Gap BUN Creatinine Estim Creat Clear Calc Est GFR (MDRD) Af Amer Est GFR (MDRD) Non-Af BUN/Creatinine Ratio Glucose Lactic Acid 1.6 Calcium Total Bilirubin AST ALT Alkaline Phosphatase Troponin I High Sens 95.7 H* Total Protein Albumin Globulin Albumin/Globulin Ratio Lipase Urine Color Urine Clarity Urine pH Ur Specific [place] Urine Protein Urine Glucose (UA) Urine Ketones Urine Occult Blood Urine Nitrite Urine Bilirubin Urine Urobilinogen Ur Leukocyte Esterase Urine RBC Urine WBC Ur Squamous Epith Cells Urine Bacteria Urine Mucus Radiography Diagnostic Testing: Radiology Impression Acute Abdomen Series 08/12/21 06:31 IMPRESSION: Nonacute x-ray examination of the chest, abdomen, and pelvis. Electronically Signed: Rubén Pyle MD ([place]) at 7:29 EDT , Service support , EKG Initial EKG: Comments: EKG done for generalized illness read by me shows normal sinus rhythm with a rate of 71. Nonspecific diffuse ST and T wave changes but no sign of acute infarct or ischemia. LA interval, QRS duration are normal. QTc is read is quite long but I think its is also reading U wave. EKG is similar to 19 November 2020. <Dr. Chano Kaur, DO - Last Filed: 01/02/21 15:22> [facility] Lab Data Attestation: I reviewed the patient's lab results. Labs: Laboratory Results - last 24 hr 01/02/21 01/02/21 01/02/21 06:20 06:26 06:26 WBC 9.9 RBC 4.24 Hgb 12.3 Hct 40.2 MCV 94.8 MCH 29.0 MCHC 30.6 L RDW Std Deviation 57.9 H RDW Coeff of Kitty 17.2 H Plt Count 353 MPV 10.8 Immature Gran % (Auto) 0.600 Neut % (Auto) 84.4 H Lymph % (Auto) 6.4 L Geary % (Auto) 6.2 Eos % (Auto) 1.7 Baso % (Auto) 0.7 Absolute Neuts (auto) 8.3 H Absolute Lymphs (auto) 0.63 L Nucleated RBC % 0 Sodium 138 Potassium 3.2 L Chloride 104 Carbon Dioxide 27.0 Anion Gap 7 BUN 10 Creatinine 0.59 Estim Creat Clear Calc 45.50 Est GFR (MDRD) Af Amer 127 Est GFR (MDRD) Non-Af 105 BUN/Creatinine Ratio 16.9 Glucose 119 H Lactic Acid Calcium 9.0 Total Bilirubin 0.40 AST 27 ALT 25 Alkaline Phosphatase 115 Troponin I High Sens 102.0 H* Total Protein 7.4 Albumin 3.4 Globulin 4.0 Albumin/Globulin Ratio 0.8 L Lipase 144 Urine Color YELLOW Urine Clarity Clear Urine pH 6.0 Ur Specific [place] 1.015 Urine Protein Negative Urine Glucose (UA) Normal Urine Ketones Negative Urine Occult Blood 10 H Urine Nitrite Negative Urine Bilirubin Negative Urine Urobilinogen Normal Ur Leukocyte Esterase 25 H Urine RBC 0 SEEN Urine WBC 0 SEEN Ur Squamous Epith Cells 0-5 SEEN Urine Bacteria RARE Urine Mucus 0 SEEN 01/02/21 01/02/21 06:45 09:20 WBC RBC Hgb Hct MCV MCH MCHC RDW Std Deviation RDW Coeff of [place] Plt Count MPV Immature Gran % (Auto) Neut % (Auto) Lymph % (Auto) Geary % (Auto) Eos % (Auto) Baso % (Auto) Absolute Neuts (auto) Absolute Lymphs (auto) Nucleated RBC % Sodium Potassium Chloride Carbon Dioxide Anion Gap BUN Creatinine Estim Creat Clear Calc Est GFR (MDRD) Af Amer Est GFR (MDRD) Non-Af BUN/Creatinine Ratio Glucose Lactic Acid 1.6 Calcium Total Bilirubin AST ALT Alkaline Phosphatase Troponin I High Sens 95.7 H* Total Protein Albumin Globulin Albumin/Globulin Ratio Lipase Urine Color Urine Clarity Urine pH Ur Specific [place] Urine Protein Urine Glucose (UA) Urine Ketones Urine Occult Blood Urine Nitrite Urine Bilirubin Urine Urobilinogen Ur Leukocyte Esterase Urine RBC Urine WBC Ur Squamous Epith Cells Urine Bacteria Urine Mucus Radiography Diagnostic Testing: Radiology Impression Acute Abdomen Series 01/02/21 06:31 IMPRESSION: Nonacute x-ray examination of the chest, abdomen, and pelvis. Electronically Signed: Rubén Pyle MD ([place]) at 7:29 EDT , Service support , EKG Initial EKG: Attestation: I personally reviewed and interpreted this EKG as follows: Interpretation: Sinus Rhythm (71) and Non-Specific ST Changes Prior EKG tracings: available for review Prior: Unchanged <Dr. Adriana Cevallos MD - Last Filed: 01/02/21 10:55> [facility] Lab Data Labs: Laboratory Results - last 24 hr 01/02/21 01/02/21 01/02/21 06:20 06:26 06:26 WBC 9.9 RBC 4.24 Hgb 12.3 Hct 40.2 MCV 94.8 MCH 29.0 MCHC 30.6 L RDW Std Deviation 57.9 H RDW Coeff of Kitty 17.2 H Plt Count 353 MPV 10.8 Immature Gran % (Auto) 0.600 Neut % (Auto) 84.4 H Lymph % (Auto) 6.4 L [place] % (Auto) 6.2 Eos % (Auto) 1.7 Baso % (Auto) 0.7 Absolute Neuts (auto) 8.3 H Absolute Lymphs (auto) 0.63 L Nucleated RBC % 0 Sodium 138 Potassium 3.2 L Chloride 104 Carbon Dioxide 27.0 Anion Gap 7 BUN 10 Creatinine 0.59 Estim Creat Clear Calc 45.50 Est GFR (MDRD) Af Amer 127 Est GFR (MDRD) Non-Af 105 BUN/Creatinine Ratio 16.9 Glucose 119 H Lactic Acid Calcium 9.0 Total Bilirubin 0.40 AST 27 ALT 25 Alkaline Phosphatase 115 Troponin I High Sens 102.0 H* Total Protein 7.4 Albumin 3.4 Globulin 4.0 Albumin/Globulin Ratio 0.8 L Lipase 144 Urine Color YELLOW Urine Clarity Clear Urine pH 6.0 Ur Specific [place] 1.015 Urine Protein Negative Urine Glucose (UA) Normal Urine Ketones Negative Urine Occult Blood 10 H Urine Nitrite Negative Urine Bilirubin Negative Urine Urobilinogen Normal Ur Leukocyte Esterase 25 H Urine RBC 0 SEEN Urine WBC 0 SEEN Ur Squamous Epith Cells 0-5 SEEN Urine Bacteria RARE Urine Mucus 0 SEEN 01/02/21 01/02/21 06:45 09:20 WBC RBC Hgb Hct MCV MCH MCHC RDW Std Deviation RDW Coeff of [place] Plt Count MPV Immature Gran % (Auto) Neut % (Auto) Lymph % (Auto) [place] % (Auto) Eos % (Auto) Baso % (Auto) Absolute Neuts (auto) Absolute Lymphs (auto) Nucleated RBC % Sodium Potassium Chloride Carbon Dioxide Anion Gap BUN Creatinine Estim Creat Clear Calc Est GFR (MDRD) Af Amer Est GFR (MDRD) Non-Af BUN/Creatinine Ratio Glucose Lactic Acid 1.6 Calcium Total Bilirubin AST ALT Alkaline Phosphatase Troponin I High Sens 95.7 H* Total Protein Albumin Globulin Albumin/Globulin Ratio Lipase Urine Color Urine Clarity Urine pH Ur Specific [place] Urine Protein Urine Glucose (UA) Urine Ketones Urine Occult Blood Urine Nitrite Urine Bilirubin Urine Urobilinogen Ur Leukocyte Esterase Urine RBC Urine WBC Ur Squamous Epith Cells Urine Bacteria Urine Mucus Radiography Diagnostic Testing: Radiology Impression Acute Abdomen Series 01/02/21 06:31 IMPRESSION: Nonacute x-ray examination of the chest, abdomen, and pelvis. Electronically Signed: Rubén Pyle MD ([place]) at 7:29 EDT , Service support , Discharge Plan Dx/Rx/DC Orders Clinical Impression: Nausea, Anxiety, Abdominal bloating Disposition Disposition: Acute Care [facility] Discharge Date/Time: 01/02/21 09:22
[2021-01-02 06:41] LABS: Absolute Lymphocyte Count 0.63 X10^3/uL (0.83-4.51); Absolute Neutrophil Count 8.3 X10^3/uL (2.0-7.7); Basophil# 0.07 X10^3/uL; Basophil% 0.7 % (0-1); Eosinophil# 0.17 X10^3/uL; Eosinophils% 1.7 % (0-5); Hematocrit 40.2 % (37-47); Hemoglobin 12.3 g/dL (12.0-15.0); Lymphocyte # 0.63 X10^3/ul (0.83-4.51); Lymphocyte % 6.4 % (19-41); Mean Corp Hgb Conc 30.6 g/dL (32-36); Mean Corpuscular Volume 94.8 fL (81-99); Mean Platelet Vol. 10.8 fl (6.2-12.0); Monocyte# 0.61 X10^3/uL; Monocyte% 6.2 % (0-10); NRBC Flagged by Analyzer 0 % (0-5); Neutrophil # 8.33 X10^3/uL (2.7-7.7); Neutrophil % 84.4 % (47-70); Platelet Count 353 K/mm3 (150-450); RBC Distribution Width CV 17.2 % (11.6-14.6); RBC Distribution Width SD 57.9 fl (35.1-43.9); Red Blood Count 4.24 M/mm3 (4.2-5.4); White Blood Count 9.9 K/mm3 (4.4-11.0)
[2021-01-02 06:42] LABS: Mucous, Urine 0 SEEN /hpf (<or=2+); Red Blood Cells-Urine 0 SEEN /hpf (0-5); White Blood Cells 0 SEEN /hpf (0-5)
[2021-01-02 06:43] LABS: Glucose, Dipstick Normal (Normal); Ketone-Dipstick Negative (Negative); Leukocyte Esterase-Dipstick 25 /ul (Negative); Nitrite-Dipstick Negative (Negative); Occult Blood-Urine 10 /ul (Negative); Protein-Dipstick Negative (Negative); Specific Gravity, Urine 1.015 (1.002-1.030); Urine Bilirubin Dipstick Negative (Negative); Urine Clarity Clear (Clear); Urine Urobilinogen Normal (Normal)
[2021-01-02] MEDS: Ondansetron 4 MG/2 ML Vial IV ×2 (06:44→15:07)
[2021-01-02] MEDS: LORazepam 2 MG/ML Syringe 0.5 MG IV (06:44)
[2021-01-02 06:55] LABS: Color, Urine YELLOW (Yellow)
[2021-01-02 06:57] LABS: Bacteria RARE /hpf (None Seen); Squamous Epithelial Cells - UA 0-5 SEEN /hpf (5-10)
[2021-01-02 07:03] LABS: ALB/GLOB Ratio 0.8 RATIO (0.9-2.4); AST(SGOT) 27 U/L (15-37); Alanine Aminotransfer ALT/SGPT 25 U/L (13-56); Albumin, Serum 3.4 g/dL (3.2-5.0); Alkaline Phosphatase 115 U/L (45-117); Anion Gap 7 (5-15); BUN 10 mg/dL (7-18); BUN/Creat Ratio 16.9 RATIO (10-20); Chloride 104 mmol/L (98-107); Creatinine, Serum 0.59 mg/dL (0.55-1.02); EST Glomerular Filtration Rate 105 mL/min (>60); Est Glom Filt Rate - Afr Amer 127 mL/min (>60); Glucose 119 mg/dL (74-106); Lipase 144 U/L (73-393); Potassium 3.2 mmol/L (3.5-5.1); Protein, Total 7.4 g/dL (6.4-8.2); Sodium Level 138 mmol/L (136-145)
[2021-01-02 07:16] LABS: Lactic Acid 1.6 mmol/L (0.4-1.9)
[2021-01-02] MEDS: Aspirin 81 MG TAB.CHEW 324 MG PO (07:36)
--- NOTE | 2021-01-02 07:55 | NURSING ---
DR KEVIN MORAN
--- NOTE | 2021-01-02 08:36 | NURSING ---
PCU OBS KEVIN ELEVATED TROP
--- NOTE | 2021-01-02 09:30 | EKG12_ITS ---
Test Reason : Blood Pressure : / mmHG Vent. Rate : 071 BPM Atrial Rate : 071 BPM P-R Int : 148 ms QRS Dur : 088 ms QT Int : 412 ms P-R-T Axes : 048 018 139 degrees QTc Int : 447 ms Normal sinus rhythm T wave abnormality, consider lateral ischemia Abnormal ECG When compared with ECG of 02-JAN-2021 06:51, MANUAL COMPARISON REQUIRED, DATA IS UNCONFIRMED Confirmed by CARLOS DELANEY, LIBERTAD ([id number]), scientific publications editor RIA VAZQUEZ ([id number]) on 01/03/2021 10:18:05 A M Referred By: KEVIN Confirmed By:BOB GONZALEZ MD
[2021-01-02 10:26] LABS: Troponin-I HS 95.7 pg/mL (3.0-53.7)
--- NOTE | 2021-01-02 12:01 | CHAPLAIN ---
Type of Pastoral Visit _x__ Initial Visit ___ Follow-up Visit ___ On-call Visit ___ General Patient Visit ___ Spiritual Assessment ___ Family Conference ___ Bereavement ___ Rapid Response ___ Code Blue ___ Other (describe below) Pastoral Care Referral From _x__ Patient ___ Family ___ Nurse ___ Physician ___ Mathematics Faculty Member ___ E Commerce Project Manager ___ Other (describe below) Sacrament/Intervention _x__ Active listening ___ Anointing ___ Taoist ___ Bereavement ___ Communion ___ Betty exploration ___ ___ Life review _x__ Prayer ___ Reconciliation ___ Sacrament of Sick _x__ Supportive presence ___ Wedding ___ Other (describe below) Pastoral Comments
[2021-01-02] MEDS: Aspirin E.C. 81 MG Tablet PO (12:32)
[2021-01-02 13:40] LABS: Troponin-I HS 80.3 pg/mL (3.0-53.7)
--- NOTE | 2021-01-02 14:30 | PCM.HP.STD ---
HPI - General General Date of Admission: 01/02/21 HPI Narrative LAVELLE RUEDA, is a 75 F who presented to the emergency department [facility] on 01/02/2021 with the complaint of nausea and abdominal bloating that has been going on for 3 to 4 days. She is a fairly poor historian. She states that she has been trying to belch to get rid of her symptoms but they seem to be persistent. She states she has back pain but indicates that this is chronic. She has some chronic shortness of breath but states this has not been worse as of recently. 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 She indicated to the emergency department physician that her symptoms were diffuse but indicated to me it was predominantly epigastric in nature. She had presented to the ER approximately 4 days ago with similar symptoms and after negative work-up she was discharged home. Her work-up here today was essentially negative other than a troponin was obtained and was noted to be elevated at 102. She had no EKG changes consistent with acute ischemia. Her vital signs were stable. Her CBC was unremarkable. Her BMP showed mild hypokalemia with potassium of 3.2 but was otherwise normal. Her lactic acid was within normal limits. Her LFTs were within normal limits. And a lipase was obtained and was 144. A UA was obtained and was unremarkable. And her troponin elevation the emergency department discussed the case with cardiology and admission was requested for further work-up. She was admitted to PCU for an NSTEMI. [facility] Medical History ACS (acute coronary syndrome) Anemia Anxiety Anxiety and depression Atherosclerosis of coronary artery of [place] heart without angina pectoris Community acquired pneumonia Essential (primary) hypertension Heme positive stool HLD (hyperlipidemia) Hypokalemia Iron deficiency anemia Non-cardiac chest pain Osteoarthritis Pleural effusion, left Pleuritis Home Medications aspirin [Adult Low Dose Aspirin] 81 mg PO DAILY 10/30/20 [History Last Taken 10/28/20] atorvastatin 80 mg PO QHS 10/30/20 [History Last Taken 10/28/20] cholecalciferol (vitamin D3) 25 mcg PO DAILY 10/30/20 [History Last Taken 10/30/20] melatonin 3 mg PO QHS 11/19/20 [History Last Taken Unknown] clorazepate dipotassium 3.75 mg tablet 3.75 mg PO BID #22 tab 12/12/20 [Rx Last Taken Unknown] promethazine 25 mg PO TID PRN #14 tab 12/29/20 [Rx Last Taken Unknown] Allergy/AdvReac Type Severity Reaction Status Date / Time iodine Allergy doesnt Verified 01/02/21 06:19 feel well Family History Father No problems noted. Mother CHF (congestive heart failure) Surgical History History of coronary artery stent placement (03/22/06) History of left heart catheterization (10/30/20) History of quadruple bypass History of repair of retinal tear by laser photocoagulation Hx of appendectomy Hx of CABG Social History household members: spouse housing: house Smoking Status: Never smoker alcohol intake: current alcohol intake frequency: other substance use type: does not use ROS Constitutional Constitutional: Denies anorexia, change in weight, chills, fatigue, fever(s), malaise, night sweats, weakness or other Eyes Eyes: Denies blurry vision, change in eye color, change in vision, discharge from eye(s), double vision, erythema, eye pain, loss of vision or other ENT HEENT: Denies abnormal hearing, dysphagia, ear pain, epistaxis, headache(s), hearing loss, nasal congestion, nasal discharge, post nasal drip, sinus pressure, sore throat or other Cardiovascular Cardiovascular: Reports edema; Denies chest pain, claudication, dyspnea on exertion, lightheadedness, orthopnea, palpitations, paroxysmal nocturnal dyspnea, rapid heart rate, syncope or other Respiratory/Chest Respiratory/Chest: Reports dyspnea and shortness of breath with exertion Gastrointestinal Gastrointestinal: Reports abdominal pain, constipation, dyspepsia and nausea; Denies coffee ground emesis, diarrhea, hematemesis, hematochezia, loose stools, melena, vomiting or other Genitourinary Genitourinary: Denies burning urination, difficulty urinating, dysuria, hematuria, nocturia, urinary frequency, urinary hesitancy, urinary incontinence, urinary urgency or other Musculoskeletal Musculoskeletal: Reports back pain; Denies arthralgias, joint pain, joint stiffness, joint swelling, myalgias, neck pain or other Neurologic Neurologic: Denies abnormal gait, abnormal speech, confusion, disequilibrium, dizziness, focal weakness, headache(s), numbness, paresthesias, seizure-like activity, seizures, syncope, tingling, tremor(s) or other Psychiatric Psychiatric: Reports anxiety; Denies depression, homicidal ideation, suicidal ideation or other Endocrine Endocrinology: Denies change in body appearance, cold intolerance, excessive sweating, heat intolerance, polydipsia, polyuria or other Hematologic/Lymphatic Hematologic/Lymphatic: Denies anemia, easy bleeding, easy bruising, lymphadenopathy or other Allergic/Immunologic Allergic/Immunologic: Denies rhinitis, hives, eczemia, asthma or other Vital Signs Vital Signs Vital Signs: 01/02/21 06:12 01/02/21 06:22 01/02/21 08:08 Temperature 98.2 F Temperature Source Temporal Pulse Rate 79 Pulse Strength Respiratory Rate 18 17 Respiratory Effort Normal Respiratory Depth Respiratory Pattern Normal Blood Pressure 164/72 H 137/79 H Blood Pressure Mean 102 98 Blood Pressure Source Blood Pressure Position Blood Pressure Location Pulse Ox 99 96 Oxygen Delivery Method Room Air 01/02/21 08:53 01/02/21 09:46 01/02/21 09:47 Temperature 98.1 F 98.9 F Temperature Source Oral Oral Pulse Rate 71 90 Pulse Strength Respiratory Rate 20 H 18 Respiratory Effort Normal Non-Labored Respiratory Depth Normal Respiratory Pattern Normal Blood Pressure 142/57 H 144/73 H Blood Pressure Mean 85 96 Blood Pressure Source Monitor Blood Pressure Position Semi-Fowlers Blood Pressure Location Left Arm Pulse Ox 98 99 Oxygen Delivery Method Room Air Room Air Room Air 01/02/21 10:06 01/02/21 10:22 01/02/21 13:03 Temperature Temperature Source Pulse Rate 68 Pulse Strength Normal (2+) Respiratory Rate Respiratory Effort Respiratory Depth Respiratory Pattern Blood Pressure Blood Pressure Mean Blood Pressure Source Blood Pressure Position Blood Pressure Location Pulse Ox 96 Oxygen Delivery Method Room Air Weight Weight: 64.319 kg Body Mass Index (BMI) 22.8 Physical Exam Const alert, oriented x3 and no apparent distress Constitutional Narrative: Older white female who appears anxious, sitting up in bed, nontoxic-appearing, no distress General Appearance: cooperative HEENT normocephalic, head/scalp atraumatic, hearing grossly normal bilaterally, moist oral mucous membranes and oropharynx normal HEENT Narrative: Good dentition, no thrush, Mallampati 2 Mouth: oral and palatal mucosa normal Eyes PERRL, EOMs intact bilaterally and conjunctivae normal Neck no lymphadenopathy, supple, no JVD and no carotid bruits Neck Narrative: Trachea midline, no thyromegaly or nodules noted Resp normal respiratory effort, no retractions, no use of accessory muscles and clear to auscultation bilaterally Auscultation: Negative for crackles, rales, rhonchi or wheezes Cardio regular rate, regular rhythm, S1 normal heart sound, S2 normal heart sound, no murmurs, no rub, no gallops, no clicks and no JVD GI normal to inspection, nondistended, normoactive bowel sounds, soft to palpation and non-distended; Negative for hepatosplenomegaly Palpation: tender epigastric Extremity Extremity Narrative: Bilateral lower extremity pitting edema 1+, no cyanosis or clubbing Peripheral Pulses: Yes pulses 2+ throughout Skin no rashes or lesions noted, no wounds, skin turgor normal, no jaundice, no petechiae and no mottling Skin Narrative: Pale skin Neuro oriented x3, CN's II-XII intact bilaterally, moves all extremities and no focal motor deficits Sensorium / Orientation: awake and alert Speech: speech normal Psych Mood & Affect: anxious Results Lab / Micro Data Result Diagrams: 01/02/21 06:26 01/02/21 06:26 Labs: Laboratory Results - last 24 hr 01/02/21 06:20: Urine Color YELLOW, Urine Clarity Clear, Urine pH 6.0, Ur Specific [place] 1.015, Urine Protein Negative, Urine Glucose (UA) Normal, Urine Ketones Negative, Urine Occult Blood 10 H, Urine Nitrite Negative, Urine Bilirubin Negative, Urine Urobilinogen Normal, Ur Leukocyte Esterase 25 H, Urine RBC 0 SEEN, Urine WBC 0 SEEN, Ur Squamous Epith Cells 0-5 SEEN, Urine Bacteria RARE, Urine Mucus 0 SEEN 01/02/21 06:26: WBC 9.9, RBC 4.24, Hgb 12.3, Hct 40.2, MCV 94.8, MCH 29.0, MCHC 30.6 L, RDW Std Deviation 57.9 H, RDW Coeff of [place] 17.2 H, Plt Count 353, MPV 10.8, Immature Gran % (Auto) 0.600, Neut % (Auto) 84.4 H, Lymph % (Auto) 6.4 L, [place] % (Auto) 6.2, Eos % (Auto) 1.7, Baso % (Auto) 0.7, Absolute Neuts (auto) 8.3 H, Absolute Lymphs (auto) 0.63 L, Nucleated RBC % 0 01/02/21 06:26: Sodium 138, Potassium 3.2 L, Chloride 104, Carbon Dioxide 27.0, Anion Gap 7, BUN 10, Creatinine 0.59, Estim Creat Clear Calc 45.50, Est GFR (MDRD) Af Amer 127, Est GFR (MDRD) Non-Af 105, BUN/Creatinine Ratio 16.9, Glucose 119 H, Calcium 9.0, Total Bilirubin 0.40, AST 27, ALT 25, Alkaline Phosphatase 115, Troponin I High Sens 102.0 H*, Total Protein 7.4, Albumin 3.4, Globulin 4.0, Albumin/Globulin Ratio 0.8 L, Lipase 144 01/02/21 06:45: Lactic Acid 1.6 01/02/21 09:20: Troponin I High Sens 95.7 H* 01/02/21 12:35: Troponin I High Sens 80.3 H* Radiology Impression Acute Abdomen Series 01/02/21 06:31 IMPRESSION: Nonacute x-ray examination of the chest, abdomen, and pelvis. Electronically Signed: Rubén Pyle MD ([place]) at 7:29 EDT , Service support , Assessment & Plan Assessment/Plan (1) Non-ST elevated myocardial infarction (non-STEMI): (2) Nausea: (3) Abdominal bloating: (4) Atherosclerosis of coronary artery of [place] heart without angina pectoris: (5) Essential (primary) hypertension: (6) HLD (hyperlipidemia): (7) Hypokalemia: PLAN: NSTEMI -No EKG changes consistent with acute ischemia -Troponin elevation -We will cycle cardiac enzymes -Given the complicated nature of the patient's recent quadruple bypass we will consult cardiology for further recommendations -Full dose aspirin given the emergency department -Baby aspirin starting tomorrow -High-dose statin Hypokalemia -40 mEq of oral potassium -Repeat in the a.m. -Check a.m. magnesium Abdominal bloating/nausea -Question if this is an anginal equivalent -Acute abdominal series done today unremarkable -CT of the abdomen and pelvis done on 12 29 for similar symptoms was unremarkable -This was done without oral IV contrast -If symptoms persist consider contrasted CT of the abdomen and pelvis -We will -Lipase is normal CAD/HPL -See above Anxiety/insomnia -Continue home medication DVT prophylaxis -Lovenox daily CODE STATUS -Full code Vitamin D deficiency -Continue home supplementation Charges/Coding Visit Charges Inpatient E&M: 21839 Init Hosp L3
[2021-01-02] MEDS: 0.9% Saline Lock 10 ML Syringe IV (15:08)
[2021-01-02] MEDS: Cholecalciferol (VIT D3) 25 MCG TABLET (1,000 UNITS) PO (15:58)
[2021-01-02] MEDS: Potassium Chloride Oral Tablet 20 MEQ 40 MEQ PO (19:00)
--- NOTE | 2021-01-02 20:12 | CON.PCM.CA_ITS ---
Assessment & Plan Assessment/Plan (1) Non-ST elevated myocardial infarction (non-STEMI): PLAN: Does not appear to be acute coronary syndrome. Likely type II DC secondary to patient's underlying noncardiac issues. Patient's nausea is likely noncardiac. It is reasonable to check a 2D echo on this patient. We will sign off at this time. If there is a drop in EF on the echo or if we can be of any further assistance please let us know. HPI Consult Data Date of Consult: 01/02/21 HPI Narrative HPI Narrative: LAVELLE RUEDA, is a 75 F who presents with nausea. Cardiology consult was requested as patient's troponin was 102, 95, 80. Patient denies any chest pain. She had recent bypass surgery and prior to the bypass surgery she had retrosternal pressure-like chest pain. She has pedal edema but this is chronic and has been going on for 2 years. [facility] Medical History ACS (acute coronary syndrome) Anemia Anxiety Anxiety and depression Atherosclerosis of coronary artery of [place] heart without angina pectoris Community acquired pneumonia Essential (primary) hypertension Heme positive stool HLD (hyperlipidemia) Hypokalemia Iron deficiency anemia Non-cardiac chest pain Osteoarthritis Pleural effusion, left Pleuritis Home Medications atorvastatin 80 mg PO QHS 10/30/20 [History Last Taken 10/28/20] cholecalciferol (vitamin D3) 25 mcg PO DAILY 10/30/20 [History Last Taken 10/30/20] melatonin 3 mg PO QHS 11/19/20 [History Last Taken Unknown] clorazepate dipotassium 3.75 mg tablet 3.75 mg PO BID #22 tab 12/12/20 [Rx Last Taken Unknown] promethazine 25 mg PO TID PRN #14 tab 12/29/20 [Rx Last Taken Unknown] amiodarone 400 mg PO DAILY 01/02/21 [History Last Taken Unknown] aspirin 325 mg PO DAILY 01/02/21 [History Last Taken Unknown] escitalopram oxalate 10 mg PO DAILY 01/02/21 [History Last Taken Unknown] ibuprofen 600 mg PO BID 01/02/21 [History Last Taken Unknown] pantoprazole 40 mg PO DAILY 01/02/21 [History Last Taken Unknown] Allergy/AdvReac Type Severity Reaction Status Date / Time iodine Allergy doesnt Verified 01/02/21 06:19 feel well Family History Father No problems noted. Mother CHF (congestive heart failure) Surgical History History of coronary artery stent placement (03/22/06) History of left heart catheterization (10/30/20) History of quadruple bypass History of repair of retinal tear by laser photocoagulation Hx of appendectomy Hx of CABG Social History household members: spouse housing: house Smoking Status: Never smoker alcohol intake: current alcohol intake frequency: other substance use type: does not use Physical Exam Const alert and oriented x3 Orientation / Consciousness: awake HEENT normocephalic Eyes no scleral icterus Chest inspection of chest normal Resp normal respiratory effort and clear to auscultation bilaterally Cardio regular rate Extremity General Extremity: edema bilateral lower extremity Details: mild Skin no rashes or lesions noted Neuro oriented x3 Psych mental status grossly normal Charges/Coding Visit Charges Inpatient E&M: 28811 Init Hosp L2 Objective Data Vital Signs: Vital Signs Temp Pulse Resp BP Pulse Ox 97.7 F L 67 18 140/60 H 98 01/02/21 15:11 01/02/21 15:11 01/02/21 15:11 01/02/21 15:11 01/02/21 15:11 Oxygen Delivery Method Room Air Weight: 141 lb 12.786 oz Body Mass Index (BMI) 22.8 Intake & Output: Intake and Output for Last 24 Hours 12/31/20 01/01/21 01/02/21 23:59 23:59 23:59 Intake Total 400 / 400 Balance 400 / 400 Lab / Micro Data Result Diagrams: 01/02/21 06:26 01/02/21 06:26 Labs: Laboratory Results - last 24 hr 01/02/21 06:20: Urine Color YELLOW, Urine Clarity Clear, Urine pH 6.0, Ur Specific [place] 1.015, Urine Protein Negative, Urine Glucose (UA) Normal, Urine Ketones Negative, Urine Occult Blood 10 H, Urine Nitrite Negative, Urine Bilirubin Negative, Urine Urobilinogen Normal, Ur Leukocyte Esterase 25 H, Urine RBC 0 SEEN, Urine WBC 0 SEEN, Ur Squamous Epith Cells 0-5 SEEN, Urine Bacteria RARE, Urine Mucus 0 SEEN 01/02/21 06:26: WBC 9.9, RBC 4.24, Hgb 12.3, Hct 40.2, MCV 94.8, MCH 29.0, MCHC 30.6 L, RDW Std Deviation 57.9 H, RDW Coeff of [place] 17.2 H, Plt Count 353, MPV 10.8, Immature Gran % (Auto) 0.600, Neut % (Auto) 84.4 H, Lymph % (Auto) 6.4 L, [place] % (Auto) 6.2, Eos % (Auto) 1.7, Baso % (Auto) 0.7, Absolute Neuts (auto) 8.3 H, Absolute Lymphs (auto) 0.63 L, Nucleated RBC % 0 01/02/21 06:26: Sodium 138, Potassium 3.2 L, Chloride 104, Carbon Dioxide 27.0, Anion Gap 7, BUN 10, Creatinine 0.59, Estim Creat Clear Calc 45.50, Est GFR (MDRD) Af Amer 127, Est GFR (MDRD) Non-Af 105, BUN/Creatinine Ratio 16.9, Glucose 119 H, Calcium 9.0, Total Bilirubin 0.40, AST 27, ALT 25, Alkaline Phosphatase 115, Troponin I High Sens 102.0 H*, Total Protein 7.4, Albumin 3.4, Globulin 4.0, Albumin/Globulin Ratio 0.8 L, Lipase 144 01/02/21 06:45: Lactic Acid 1.6 01/02/21 09:20: Troponin I High Sens 95.7 H* 01/02/21 12:35: Troponin I High Sens 80.3 H* Cardiology Labs/Tests 01/02/21 06:20: Urine Color YELLOW, Urine Clarity Clear, Urine pH 6.0, Ur Specific [place] 1.015, Urine Protein Negative, Urine Glucose (UA) Normal, Urine Ketones Negative, Urine Occult Blood 10 H, Urine Nitrite Negative, Urine Bilirubin Negative, Urine Urobilinogen Normal, Ur Leukocyte Esterase 25 H, Urine RBC 0 SEEN, Urine WBC 0 SEEN 01/02/21 06:26: WBC 9.9, RBC 4.24, Hgb 12.3, Hct 40.2, MCV 94.8, MCH 29.0, MCHC 30.6 L, Plt Count 353, MPV 10.8, Immature Gran % (Auto) 0.600, Neut % (Auto) 84.4 H, Lymph % (Auto) 6.4 L, [place] % (Auto) 6.2, Eos % (Auto) 1.7, Baso % (Auto) 0.7, Absolute Neuts (auto) 8.3 H, Nucleated RBC % 0 01/02/21 06:26: Sodium 138, Potassium 3.2 L, Chloride 104, Carbon Dioxide 27.0, Anion Gap 7, BUN 10, Creatinine 0.59, Est GFR (MDRD) Af Amer 127, Est GFR (MDRD) Non-Af 105, BUN/Creatinine Ratio 16.9, Glucose 119 H, Calcium 9.0, Total Bilirubin 0.40 01/02/21 06:45: Lactic Acid 1.6 Rhythm: EKG: ECHO: Stress Test: Cardiac Cath: PCI: CT Surgery: Holter monitor: EPS: PPM: CXR: Chest CT Scan: Radiography Diagnostic Testing: Radiology Impression Acute Abdomen Series 01/02/21 06:31 IMPRESSION: Nonacute x-ray examination of the chest, abdomen, and pelvis. Electronically Signed: Rubén Pyle MD ([place]) at 7:29 EDT , Service support ,
[2021-01-02] MEDS: MELATONIN 3 MG TABLET PO (21:10)
[2021-01-02] MEDS: Atorvastatin Calcium 80 MG Tablet PO (21:10)
[2021-01-02] MEDS: Ibuprofen 600 MG Tablet PO (22:10)
[2021-01-03] VITALS (8 sets, daily range): BP systolic 136–145; BP diastolic 63–68; PULSE 59–70; RESP 16–18; TEMP 36.1–36.8; O2SAT 93–98
[2021-01-03 06:57] LABS: Absolute Neutrophil Count 3.2 X10^3/uL (2.0-7.7); Basophil# 0.07 X10^3/uL; Basophil% 1.4 % (0-1); Eosinophils% 4.1 % (0-5); Hematocrit 34.1 % (37-47); Hemoglobin 10.5 g/dL (12.0-15.0); Lymphocyte % 16.5 % (19-41); Mean Corp Hgb Conc 30.8 g/dL (32-36); Mean Corpuscular Volume 94.2 fL (81-99); Mean Platelet Vol. 10.8 fl (6.2-12.0); Monocyte# 0.58 X10^3/uL; Monocyte% 11.9 % (0-10); NRBC Flagged by Analyzer 0 % (0-5); Neutrophil # 3.18 X10^3/uL (2.7-7.7); Neutrophil % 65.5 % (47-70); Platelet Count 267 K/mm3 (150-450); RBC Distribution Width CV 17.2 % (11.6-14.6); RBC Distribution Width SD 57.4 fl (35.1-43.9); Red Blood Count 3.62 M/mm3 (4.2-5.4); White Blood Count 4.9 K/mm3 (4.4-11.0)
[2021-01-03 07:38] LABS: ALB/GLOB Ratio 0.9 RATIO (0.9-2.4); AST(SGOT) 24 U/L (15-37); Alanine Aminotransfer ALT/SGPT 20 U/L (13-56); Albumin, Serum 2.8 g/dL (3.2-5.0); Alkaline Phosphatase 86 U/L (45-117); Anion Gap 6 (5-15); BUN 8 mg/dL (7-18); BUN/Creat Ratio 17.7 RATIO (10-20); Calcium,Total 8.3 mg/dL (8.5-10.1); Chloride 106 mmol/L (98-107); Creatinine, Serum 0.45 mg/dL (0.55-1.02); EST Glomerular Filtration Rate 144 mL/min (>60); Est Glom Filt Rate - Afr Amer 174 mL/min (>60); Globulin 3.1 g/dL (2.2-4.2); Glucose 86 mg/dL (74-106); Magnesium 2.1 mg/dL (1.6-2.6); Potassium 3.7 mmol/L (3.5-5.1); Protein, Total 5.9 g/dL (6.4-8.2); Sodium Level 140 mmol/L (136-145)
[2021-01-03] MEDS: Senna/Docusate Sodium 1 Tablet 2 TABLET PO (09:42)
[2021-01-03] MEDS: Pantoprazole Sodium 40 MG Tablet PO (09:42)
[2021-01-03] MEDS: Ibuprofen 600 MG Tablet PO (09:42)
[2021-01-03] MEDS: Escitalopram Oxalate 10 MG Tablet PO (09:42)
[2021-01-03] MEDS: Amiodarone 200 MG Tablet 400 MG PO (09:42)
[2021-01-03] MEDS: Enoxaparin 40 MG/0.4 ML Syringe SC (09:42)
[2021-01-03] MEDS: Cholecalciferol (VIT D3) 25 MCG TABLET (1,000 UNITS) PO (09:43)
[2021-01-03] MEDS: Aspirin E.C. 81 MG Tablet PO (09:43)
--- NOTE | 2021-01-03 10:57 | PCM.DC.SUM ---
Providers Date of Admission: 01/02/21 Primary Care Physician: Dr. Alisson Armenta MD Consultations 01/02/21 09:30 Consult: Cardiology Routine Consulting Provider: Adriana Cevallos Reason for Consult: NSTEMI s/p recent CABG EMERGENT Consult: No MD Notified: Yes Date Notified: 01/02/21 Time Notified: 10:00 Method of Notification: Text Reason For Visit: NSTEMI Diagnosis Discharge Diagnosis (1) Non-ST elevated myocardial infarction (non-STEMI): Status: Acute Code(s): I21.4 - Non-ST elevation (NSTEMI) myocardial infarction Medications at Discharge Home Medications atorvastatin 80 mg PO QHS 10/30/20 cholecalciferol (vitamin D3) 25 mcg PO DAILY 10/30/20 melatonin 3 mg PO QHS 11/19/20 clorazepate dipotassium 3.75 mg tablet 3.75 mg PO BID #22 tab 12/12/20 promethazine 25 mg PO TID PRN #14 tab 12/29/20 amiodarone 400 mg PO DAILY 01/02/21 aspirin 325 mg PO DAILY 01/02/21 escitalopram oxalate 10 mg PO DAILY 01/02/21 ibuprofen 600 mg PO BID 01/02/21 pantoprazole 40 mg PO DAILY 01/02/21 Hospital Course Operations None Procedures None Summary of Care Provided Minutes Spent on Discharge: 18 Hospital Course: LAVELLE RUEAD, is a 75 F who presented to the emergency department [facility] on 01/02/2021 with the complaint of nausea and abdominal bloating that has been going on for 3 to 4 days. She is a fairly poor historian. She stated that she had been trying to belch to get rid of her symptoms but they seem to be persistent. She stated she has had back pain but indicates that this is chronic. She has some chronic shortness of breath but states this has not been worse as of recently. 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 She indicated to the emergency department physician that her symptoms were diffuse but indicated to me it was predominantly epigastric in nature. She had presented to the ER approximately 4 days ago with similar symptoms and after negative work-up she was discharged home. Her work-up here today was essentially negative other than a troponin was obtained and was noted to be elevated at 102. She had no EKG changes consistent with acute ischemia. Her vital signs were stable. Her CBC was unremarkable. Her BMP showed mild hypokalemia with potassium of 3.2 but was otherwise normal. Her lactic acid was within normal limits. Her LFTs were within normal limits. And a lipase was obtained and was 144. A UA was obtained and was unremarkable. And her troponin elevation the emergency department discussed the case with cardiology and admission was requested for further work-up. She was assessed by cardiology and it was felt that her troponin elevation was likely not cardiac in nature and recommended an echo be performed and signed off. An echocardiogram was performed and showed an EF of 55% which is similar to her previous echo prior to surgery and had no other marked abnormalities. Her symptoms have improved significantly and she was tolerating a p.o. diet without a problem. Her cardiac enzymes trended down. Her home medications note that she is taking both a full dose aspirin and NSAIDs at home. I have asked her to hold her NSAIDs to see if this helps with her symptoms and she is to continue taking Protonix 40 mg daily. I recommend she follow-up with her PCP in a week. If she has persistent symptoms referral to GI may be helpful for possible EGD to assess the problem further as her work-up has essentially been negative. Discharge diagnoses: NSTEMI type II Hypokalemia-resolved Abdominal bloating/nausea-resolved CAD Hyperlipidemia Depression anxiety History of iron deficiency Physical Exam Const alert, oriented x3 and no apparent distress Constitutional Narrative: Older white female sitting up in chair at the bedside, nursing is present, patient appears well, nontoxic, patient states she is eating well without any issues and her stomach issues have improved General Appearance: cooperative and comfortable Orientation / Consciousness: awake HEENT normocephalic and head/scalp atraumatic Eyes PERRL and EOMs intact bilaterally Resp normal respiratory effort, no retractions, no use of accessory muscles and clear to auscultation bilaterally Auscultation: Negative for crackles, rales, rhonchi or wheezes Cardio regular rate, regular rhythm, S1 normal heart sound, S2 normal heart sound, no murmurs, no rub, no gallops, no clicks and no JVD GI normal to inspection, nondistended, normoactive bowel sounds, soft to palpation, non-tender and non-distended; Negative for hepatosplenomegaly GI Narrative: Epigastric tenderness has resolved Extremity Extremity Narrative: Chronic bilateral lower extremity edema present General Extremity: edema Skin no rashes or lesions noted, no wounds and no jaundice Neuro oriented x3, CN's II-XII intact bilaterally, moves all extremities and no focal motor deficits Sensorium / Orientation: awake and alert Psych Mood & Affect: anxious Weight / BMI Weight Weight: 64.319 kg Body Mass Index (BMI) 22.8 ABG / Lab / Microbiology Data Result Diagrams: 01/03/21 05:25 01/03/21 05:25 Laboratory: Laboratory Results - last 24 hr 01/02/21 12:35: Troponin I High Sens 80.3 H* 01/03/21 05:25: WBC 4.9, RBC 3.62 L, Hgb 10.5 L, Hct 34.1 L, MCV 94.2, MCH 29.0, MCHC 30.8 L, RDW Std Deviation 57.4 H, RDW Coeff of Kitty 17.2 H, Plt Count 267, MPV 10.8, Immature Gran % (Auto) 0.600, Neut % (Auto) 65.5, Lymph % (Auto) 16.5 L, [place] % (Auto) 11.9 H, Eos % (Auto) 4.1, Baso % (Auto) 1.4 H, Absolute Neuts (auto) 3.2, Absolute Lymphs (auto) 0.80 L, Nucleated RBC % 0 01/03/21 05:25: Sodium 140, Potassium 3.7, Chloride 106, Carbon Dioxide 28.0, Anion Gap 6, BUN 8, Creatinine 0.45 L, Estim Creat Clear Calc 45.50, Est GFR (MDRD) Af Amer 174, Est GFR (MDRD) Non-Af 144, BUN/Creatinine Ratio 17.7, Glucose 86, Calcium 8.3 L, Phosphorus 3.0, Magnesium 2.1, Total Bilirubin 0.50, AST 24, ALT 20, Alkaline Phosphatase 86, Total Protein 5.9 L, Albumin 2.8 L, Globulin 3.1, Albumin/Globulin Ratio 0.9 D/C Instructions Discharge Diet: Low fat / Low cholesterol Discharge Activity: Return to Normal Activity Meaningful Use Info Meaningful Use Diagnoses (Choose all that apply): None applicable Discharge Plan Admission Admit Date/Time: 01/02/21 09:40 Primary Reason for Your Visit: Abdominal Bloating Attending Provider: Gisela Chandler Primary Care Provider: Alisson Armenta Consulting Providers: Adriana Cevallos Instructions Patient Instructions: ED Chest Pain, Noncardiac Additional Instructions / Restrictions: Patient Problems: Altered Health Status related to Hospitalization Patient Goals: *Optimal Level of Health *Keep Appointments *Medication Compliance *Remain Safe Discharge Orders/Prescriptions Prescriptions: Continued cholecalciferol (vitamin D3) 25 mcg (1,000 unit) Capsule 25 mcg PO DAILY RF: 0 atorvastatin 20 mg tablet 80 mg PO QHS RF: 0 melatonin 3 mg Tablet 3 mg PO QHS RF: 0 promethazine 25 mg tablet 25 mg PO TID PRN (Reason: nausea and vomiting) Qty: 14 RF: 0 amiodarone 400 mg Tablet 400 mg PO DAILY RF: 0 pantoprazole 40 mg tablet,delayed release (DR/EC) 40 mg PO DAILY RF: 0 escitalopram oxalate 10 mg tablet 10 mg PO DAILY RF: 0 aspirin 325 mg Tablet 325 mg PO DAILY RF: 0 clorazepate dipotassium 3.75 mg tablet 3.75 mg PO BID Qty: 22 RF: 0 Held ibuprofen 600 mg tablet 600 mg PO BID RF: 0 Hold Instructions: hold and see how your stomach feels as this may be irratating to the stomach lining Referrals / Follow Up: Margo Marinelli NP, FLOOR CARE TECHNICIAN-C [NON-STAFF] - 01/10/21 9:40 am Disposition Disposition (needs filled in before D/C Order can be placed): Home, Self Care Charges/Coding Visit Charges Inpatient E&M: 53204 Disch Hosp
--- NOTE | 2021-01-03 11:06 | ECHOCS_ITS ---
Reason For Study: s/p CABG Procedure This was a 2D Doppler, Color Flow transthoracic echocardiogram. The study was technically difficult. Contrast injection was performed. Exam performed portable in patient room. Left Ventricle Normal LV size. Apical false tendon noted. Left ventricular systolic function is normal. The estimated ejection fraction is 55 %. Diastolic function is indeterminate. No regional wall motion abnormalities noted. Right Ventricle Normal RV size. Normal systolic function. Atria The left atrium is mildly enlarged. Normal right atrium. No doppler evidence for ASD. Mitral Valve There is no mitral annular calcification. 2D echocardiographic images demonstrate a small mobile echodensity on the atrial aspect of the mitral valve apparatus appearing compatible with a Lambls Excresence. Mild (1+) mitral valve insufficiency. Tricuspid Valve Normal tricuspid valve. Mild tricuspid valve insufficiency. Right ventricular systolic pressure estimated to be 28 mmHg. Aortic Valve Trisinus/trileaflet aortic valve. Mild diffuse aortic valve thickening. Trivial aortic valve insufficiency. Pulmonic Valve The pulmonic valve is not well visualized. Trivial pulmonic valve insufficiency. Great Vessels Normal sized aortic root. Pericardium/Pleural No pericardial effusion. Echo lucency compatible with a pleural effusion. Medication Diluted definity 2ml given slow IV push to enhance endocardial definition. MMode/2D Measurements & Calculations LVIDd: 4.2 cm IVSd: 1.2 cm Ao root diam: 2.8 cm LVIDs: 2.6 cm LVPWd: 1.4 cm RVDd: 2.7 cm FS: 38.3 % LAV(MOD-bp): 46.1 ml LVAd ap4: 22.6 cm2 SV(MOD-sp4): 34.1 ml LAV(MOD-bp) Indexed: 27.7 ml/m2 LVLd ap4: 6.2 cm LAV(MOD-sp2): 46.8 ml EDV(MOD-sp4): 68.3 ml LAV(MOD-sp4): 44.3 ml EDV(sp4-el): 70.3 ml LVAs ap4: 13.9 cm2 LVLs ap4: 4.7 cm ESV(MOD-sp4): 34.2 ml ESV(sp4-el): 35.1 ml EF(MOD-sp4): 49.9 % EF(sp4-el): 50.1 % SV(sp4-el): 35.2 ml LA A4 area: 16.7 cm2 LA dimension(2D): 3.7 cm RA A4 area: 13.9 cm2 Doppler Measurements & Calculations MV E max paulo: 68.7 cm/sec Lat Peak E' Paulo: 8.3 cm/sec Med Peak E' Paulo: 4.6 cm/sec MV A max paulo: 87.6 cm/sec E/E' lat: 8.3 E/E' med: 14.8 MV E/A: 0.78 Ao V2 max: 134.6 cm/sec LV V1 max: 89.8 cm/sec PA V2 max: 86.3 cm/sec Ao max P.2 mmHg LV V1 max P.2 mmHg Ao V2 mean: 92.9 cm/sec Ao mean P.8 mmHg Ao V2 VTI: 26.8 cm TR max paulo: 248.9 cm/sec TR max P.8 mmHg ECHO/Echo Complete W/ Contrast Interpretation Summary The study was technically difficult. Contrast injection was performed. Left ventricular systolic function is normal. The estimated ejection fraction is 55 %. Apical false tendon noted. The left atrium is mildly enlarged. 2D echocardiographic images demonstrate a small mobile echodensity on the atria l aspect of the mitral valve apparatus appearing compatible with a Lambls Excresence. Mild (1+) mitral valve insufficiency. Mild tricuspid valve insufficiency. Mild diffuse aortic valve thickening. Trivial aortic valve insufficiency. Trivial pulmonic valve insufficiency. Echo lucency compatible with a pleural effusion. Right ventricular systolic pressure estimated to be 28 mmHg. Diastolic function is indeterminate. Ordering Physician: Gisela Chandler Referring Physician: Alisson Armenta Performed By: Franchesca Reyez, RICHELLE, RVT
--- NOTE | 2021-01-03 11:10 | CASEMGMT ---
[place] Face to Face with patient for initial transition planning/care coordination assessment. RN ALEKSANDRA introduced self and role at [facility]. Patient lying in bed, alert and oriented. Patient willing to participate in assessment and is able to answer all questions appropriately. Care providers, pharmacy, and demographics verified. Patient wishes to discharge home with resumption of HHC that [facility] setup. Patient states she has no further needs or concerns at this time. CM to follow for discharge planning needs that may arise. PCP: Kathi Specialists: none Preferred Pharmacy: [facility] Insurance: [employer] [facility] Prescription Benefit: yes Living Will/HPOA: yes, brother Adolph Kandy HPOA LNOK: brother, boyfriend Living Arrangements: Patient states that she is currently staying with boyfriend in 2 story home with bed and bath on first floor. Patient states she is independent at home but boyfriend has been assisting at time. Transportation: boyfriend, brother DME/HHC: Patient states she has rollator and grab bars at home. patient is active with [facility]. Patient has previously been to [facility]. Disposition Plan: Patient to discharge home with resumption of HHC, family support, and follow-up plans in place. Ivette YA, RN, CM
--- NOTE | 2021-01-03 11:26 | PHA.DC.MR ---
Pharmacy Service has performed discharge medication reconciliation for this patient. The patient's discharge medication list was reviewed for discrepancies and discrepancies were resolved. Home Medications atorvastatin 80 mg PO QHS 10/30/20 cholecalciferol (vitamin D3) 25 mcg PO DAILY 10/30/20 melatonin 3 mg PO QHS 11/19/20 clorazepate dipotassium 3.75 mg tablet 3.75 mg PO BID #22 tab 12/12/20 promethazine 25 mg PO TID PRN #14 tab 12/29/20 amiodarone 400 mg PO DAILY 01/02/21 aspirin 325 mg PO DAILY 01/02/21 escitalopram oxalate 10 mg PO DAILY 01/02/21 ibuprofen 600 mg PO BID 01/02/21 pantoprazole 40 mg PO DAILY 01/02/21
--- NOTE | 2021-01-03 12:11 | DCINST_ITS ---
Discharge Instructions Diet Discharge Diet: Low fat / Low cholesterol Follow Up Care Test Results: Test results from this visit will be discussed in further detail at your follow-up appointment, if applicable. Discharge Plan Admission Admit Date/Time: 01/02/21 09:40 Primary Reason for Your Visit: Abdominal Bloating Attending Provider: Gisela Chandler Primary Care Provider: Alisson Armenta Consulting Providers: Adriana Cevallos Instructions Patient Instructions: ED Chest Pain, Noncardiac Additional Instructions / Restrictions: Patient Problems: Altered Health Status related to Hospitalization Patient Goals: *Optimal Level of Health *Keep Appointments *Medication Compliance *Remain Safe Discharge Orders/Prescriptions Prescriptions: Continued cholecalciferol (vitamin D3) 25 mcg (1,000 unit) Capsule 25 mcg PO DAILY RF: 0 atorvastatin 20 mg tablet 80 mg PO QHS RF: 0 melatonin 3 mg Tablet 3 mg PO QHS RF: 0 promethazine 25 mg tablet 25 mg PO TID PRN (Reason: nausea and vomiting) Qty: 14 RF: 0 amiodarone 400 mg Tablet 400 mg PO DAILY RF: 0 pantoprazole 40 mg tablet,delayed release (DR/EC) 40 mg PO DAILY RF: 0 escitalopram oxalate 10 mg tablet 10 mg PO DAILY RF: 0 aspirin 325 mg Tablet 325 mg PO DAILY RF: 0 clorazepate dipotassium 3.75 mg tablet 3.75 mg PO BID Qty: 22 RF: 0 Held ibuprofen 600 mg tablet 600 mg PO BID RF: 0 Hold Instructions: hold and see how your stomach feels as this may be irratating to the stomach lining Referrals / Follow Up: Margo Marinelli LIEUTENANT/DEPUTY, LIEUTENANT/DEPUTY-C [NON-STAFF] - 01/10/21 9:40 am Disposition Disposition (needs filled in before D/C Order can be placed): Home, Self Care
--- NOTE | 2021-01-03 12:38 | CASEMGMT ---
Pt stated during assessment that she has [facility]. Call to [facility] to verify as they do not have their own HHC and per Patricia, pt was set up with [facility]. Call to Angelina at [facility] and she states pt is active with SN, PT/OT, aide. LISA order placed and H&P, LISA order, d/c instructions faxed to [facility] and Angelina aware that pt will be discharging today. Angelina states they will f/u with pt once home regarding any further resources. D/C summary to be faxed once obtained. Tim BLACK CM
--- NOTE | 2021-01-03 13:27 | CASEMGMT ---
Palliative screening tool completed for [facility]. Patient meets criteria for palliative consult. Hospitalist notified and no referral at this time.
--- NOTE | 2021-01-06 14:38 | CASEMGMT ---
RN CM Discharge Follow-up Phone Call: NORMA: Britt Strata: 3 Call Date: 01/06/21 Discharge Date: 01/03/21 Time of Call: 1438 Duration: 1 min Admitting Diagnosis: NSTEMI RN ALEKSANDRA attempted to complete follow-up phone call after recent hospitalization. No answer, voice message left with return contact information.
--- NOTE | 2021-01-06 14:54 | CASEMGMT ---
SWETHA received a phone call from patient's brother Adolph. He said they are having a hard time with getting patient to take her medications correctly. He lives an hour [place] a half away. SWETHA told him about [facility]. He seemed interested and would like a referral made. SWETHA told him SW can make a referral and will ask that they call him to tell him more about their services. He thanked SWETHA. SWETHA put in a referral for [facility]. SWETHA also called Tim with [facility] and let her know about referral. Babita Méndez MSW LIBERTAD
--- NOTE | 2021-02-17 09:07 | CCN.REFER ---
PATIENT AGREEABLE AND NOW ACTIVE WITH [facility].
== END 2021-01-03 19:15 | disposition home or self-care (01) | DRG 282 ==
LOC: ED 08:33 → PCU 08:48
PROVIDERS: Emergency Medicine; Admitting Provider Internal Medicine; Emergency Provider Emergency Medicine; PCP Internal Medicine; Visit Provider Internal Medicine
DX: I21.A1 Myocardial infarction type 2 (principal); E87.6 Hypokalemia; R11.2 Nausea with vomiting, unspecified; R14.0 Abdominal distension (gaseous); I25.10 Atherosclerotic heart disease of native coronary artery without angina pectoris; E78.5 Hyperlipidemia, unspecified; F32.9 Major depressive disorder, single episode, unspecified; F41.9 Anxiety disorder, unspecified; Z79.899 Other long term (current) drug therapy; Z95.1 Presence of aortocoronary bypass graft; E55.9 Vitamin D deficiency, unspecified; G47.00 Insomnia, unspecified
CPT/HCPCS: 36415; 74022; 80053; 81001; 83605; 83690; 83735; 84100; 84484; 85025; 93005; 93306; 97802; 99285; Q9957; A4216; C8929; J2405; J3490

== ENCOUNTER → 2021-02-04 14:28 | Outpatient (CLI) | payer MEDICARE, SELFPAY ==
[2021-02-04 17:29] LABS: Anion Gap 6 (5-15); BUN 10 mg/dL (7-18); BUN/Creat Ratio 14.4 RATIO (10-20); Calcium,Total 9.3 mg/dL (8.5-10.1); Chloride 99 mmol/L (98-107); Creatinine, Serum 0.69 mg/dL (0.55-1.02); EST Glomerular Filtration Rate 88 mL/min (>60); Est Glom Filt Rate - Afr Amer 106 mL/min (>60); Glucose 95 mg/dL (74-106); Potassium 2.5 mmol/L (3.5-5.1); Sodium Level 140 mmol/L (136-145)
== END ==
PROVIDERS: PCP Internal Medicine; Referring Provider Physician Assistant Medical; Visit Provider Physician Assistant Medical
DX: I10 Essential (primary) hypertension (principal); Z79.899 Other long term (current) drug therapy
CPT/HCPCS: 36415; 80048; 84439; 84443; 84481

== ENCOUNTER → 2021-02-07 12:36 | Outpatient (CLI) | payer MEDICARE, SELFPAY ==
[2021-02-07 13:21] LABS: Anion Gap 6 (5-15); BUN 9 mg/dL (7-18); BUN/Creat Ratio 13.4 RATIO (10-20); Calcium,Total 9.5 mg/dL (8.5-10.1); Chloride 102 mmol/L (98-107); Creatinine, Serum 0.67 mg/dL (0.55-1.02); EST Glomerular Filtration Rate 91 mL/min (>60); Est Glom Filt Rate - Afr Amer 110 mL/min (>60); Glucose 106 mg/dL (74-106); Potassium 3.1 mmol/L (3.5-5.1); Sodium Level 139 mmol/L (136-145)
== END ==
PROVIDERS: PCP Internal Medicine; Visit Provider Physician Assistant Medical
DX: E87.6 Hypokalemia (principal)
CPT/HCPCS: 36415; 80048

== ENCOUNTER → 2021-02-21 14:47 | Outpatient (CLI) | payer MEDICARE, SELFPAY ==
[2021-02-21 15:57] LABS: Anion Gap 5 (5-15); BUN 13 mg/dL (7-18); BUN/Creat Ratio 17.6 RATIO (10-20); Calcium,Total 9.1 mg/dL (8.5-10.1); Chloride 104 mmol/L (98-107); Creatinine, Serum 0.74 mg/dL (0.55-1.02); EST Glomerular Filtration Rate 82 mL/min (>60); Est Glom Filt Rate - Afr Amer 99 mL/min (>60); Glucose 97 mg/dL (74-106); Sodium Level 138 mmol/L (136-145)
== END ==
PROVIDERS: PCP Internal Medicine; Visit Provider Physician Assistant Medical
DX: E87.6 Hypokalemia (principal)
CPT/HCPCS: 36415; 80048

== ENCOUNTER 2021-03-04 11:32 | Emergency (ER) | payer MEDICARE, SELFPAY ==
[2021-03-04 11:33] VITALS: BP 151/64; PULSE 68; RESP 18; TEMP 36.6; O2SAT 99; BMI 22.4
--- NOTE | 2021-03-04 12:15 | EKG12_ITS ---
Test Reason : CP Blood Pressure : / mmHG Vent. Rate : 067 BPM Atrial Rate : 067 BPM P-R Int : 138 ms QRS Dur : 086 ms QT Int : 430 ms P-R-T Axes : 042 002 114 degrees QTc Int : 454 ms Normal sinus rhythm T wave abnormality, consider lateral ischemia Abnormal ECG Confirmed by MILAN DELANEY, ASHANTI ([id number]), image editor RIA VAZQUEZ ([id number]) on 03/05/2021 9:03:27 AM Referred By: JA Confirmed By:ASHANTI YATES MD
--- NOTE | 2021-03-04 12:16 | EX.ED.DYSGE1 ---
HPI History of Present Illness Chief Complaint: Chest Pain Informant: patient Narrative Narrative: 75-year-old female presented to the emergency room with shortness of breath. Patient states that her symptoms developed last night during the night. It is not unusual for her not to sleep well. It was more today. She states that it is hard for her to take a breath. Denies any chest pain. She denies any nausea or vomiting. She notes some nasal congestion. States she did have a cough earlier in the day but not currently. Patient reports no change in her chronic leg swelling. Patient has a history of coronary artery disease and underwent CABG this year. She follows with Dr. Sanabria. She states that this feels different than her cardiac symptoms that led to the CABG and stent. [facility] Medical History Anxiety Anxiety and depression Atherosclerosis of coronary artery of [place] heart without angina pectoris Atherosclerotic heart disease of [place] coronary artery without angina pectoris Community acquired pneumonia Essential (primary) hypertension Heme positive stool History of non-ST elevation myocardial infarction (NSTEMI) (01/02/21) HLD (hyperlipidemia) Iron deficiency anemia Osteoarthritis Pleural effusion, left Pleuritis Postoperative atrial fibrillation (11/06/20) Home Medications atorvastatin 80 mg PO QHS 10/30/20 [History Last Taken 10/28/20] cholecalciferol (vitamin D3) 25 mcg PO DAILY 10/30/20 [History Last Taken 10/30/20] melatonin 3 mg PO QHS 11/19/20 [History Last Taken Unknown] escitalopram oxalate 10 mg PO DAILY 01/02/21 [History Last Taken Unknown] pantoprazole 40 mg PO DAILY 01/02/21 [History Last Taken Unknown] aspirin 81 mg tablet,delayed release 81 mg PO DAILY 01/17/21 [History Last Taken Unknown] lisinopril 10 mg tablet 10 mg PO DAILY #90 tab 01/17/21 [Rx Last Taken Unknown] potassium chloride 20 mEq tablet,extended release 20 meq PO .COMPLEX #30 tab 02/04/21 [Rx Last Taken Unknown] furosemide 40 mg tablet 40 mg PO DAILY #90 tab 02/05/21 [Rx Last Taken Unknown] Allergy/AdvReac Type Severity Reaction Status Date / Time iodine Allergy doesnt Verified 03/04/21 11:32 feel well Family History Father No problems noted. Mother CHF (congestive heart failure) Surgical History H/O coronary artery bypass surgery (11/04/20) History of coronary artery stent placement (03/22/06) History of left heart catheterization (10/30/20) History of repair of retinal tear by laser photocoagulation Hx of appendectomy Social History household members: spouse housing: house Smoking Status: Never smoker alcohol intake: current alcohol intake frequency: other substance use type: does not use ROS ROS ED Constitutional Constitutional ED: Denies chills or weight loss Eyes Eyes: Denies change in vision or diplopia ENT ENT ED: Reports rhinorrhea; Denies ear pain or sore throat Cardiovascular Cardiovascular: Denies chest pain, orthopnea, palpitations or racing heartbeat Respiratory/Chest Respiratory/Chest: Reports cough and dyspnea; Denies orthopnea Gastrointestinal Gastrointestinal: Denies abdominal pain, diarrhea, nausea or vomiting Genitourinary Genitourinary ED: Denies dysuria, hematuria or urinary frequency Musculoskeletal Musculoskeletal: Denies arthralgias or myalgias Integumentary Denies abscess or rash Neurologic Neurologic: Denies headache(s) or weakness Psychiatric Psychiatric: Denies anxiety, depression, suicidal ideation or suicidal thoughts Endocrine Endocrinology: Denies polydipsia, polyphagia or polyuria Allergic/Immunologic Allergic/Immunologic ED: Denies mouth swelling, tongue swelling or urticaria EXAM Physical Exam Const Vital Signs: 03/04/21 11:33 03/04/21 11:35 03/04/21 12:24 Temperature 97.8 F Temperature Source Oral Pulse Rate 68 64 Respiratory Rate 18 16 Respiratory Effort Short of Breath Respiratory Pattern Normal Blood Pressure 151/64 H 148/69 H Blood Pressure Mean 93 95 Pulse Ox 99 97 Oxygen Delivery Method Room Air Room Air 03/04/21 13:25 03/04/21 14:36 Temperature Temperature Source Pulse Rate 62 87 Respiratory Rate 16 18 Respiratory Effort Respiratory Pattern Blood Pressure 143/74 H 144/59 H Blood Pressure Mean 97 87 Pulse Ox 94 98 Oxygen Delivery Method Room Air Room Air Positive well nourished and well developed General Appearance ED: well developed HEENT Reports normocephalic, head/scalp atraumatic and moist mucous membranes Eyes PERRL and EOMs intact bilaterally Neck no lymphadenopathy, supple and no JVD Resp normal respiratory effort and clear to auscultation bilaterally Cardio regular rate, regular rhythm and no murmurs GI normal to inspection, nondistended, normoactive bowel sounds and non-tender Palpation: soft Back/Spine no CVA tenderness and normal ROM Extremity normal to inspection General Extremety ED: Yes edema General Extremity: edema Neuro oriented x3 and CN's II-XII intact bilaterally Sensorium / Orientation: alert Motor Exam: strength 5/5 throughout Psych mental status grossly normal Mood & Affect: Negative for depressed or tearful Skin no rashes or lesions noted and no wounds MDM MDM MDM Narrative Medical decision making narrative: My interpretation of the chest x-ray is no acute process Basic blood work showed a normal CBC D-dimer 0.39 normal BNP and 2 sets of high-sensitivity troponins that are the same at 22. Patient ambulated with no significant desaturations tachydysrhythmias or difficulty. At this point I do not have a clear etiology for why the patient feels the pressure in her chest. I do not think this represents ACS. Patient will follow up with primary care return if worsening or concerns Lab Data Attestation: I reviewed the patient's lab results. Labs: Laboratory Results - last 24 hr 03/04/21 03/04/21 03/04/21 11:40 11:40 11:40 WBC 6.8 RBC 4.78 Hgb 14.5 Hct 44.2 MCV 92.5 MCH 30.3 MCHC 32.8 RDW Std Deviation 54.2 H RDW Coeff of Kitty 15.8 H Plt Count 274 MPV 12.0 Immature Gran % (Auto) 0.400 Neut % (Auto) 77.6 H Lymph % (Auto) 9.1 L [place] % (Auto) 10.9 H Eos % (Auto) 1.3 Baso % (Auto) 0.7 Absolute Neuts (auto) 5.3 Absolute Lymphs (auto) 0.62 L Nucleated RBC % 0 D-Dimer Quant (PE/DVT) 0.39 Sodium 140 Potassium 4.1 Chloride 103 Carbon Dioxide 31.0 Anion Gap 6 BUN 14 Creatinine 0.85 Estim Creat Clear Calc 53.53 Est GFR (MDRD) Af Amer 83 Est GFR (MDRD) Non-Af 69 BUN/Creatinine Ratio 16.4 Glucose 105 Calcium 9.5 Troponin I High Sens 22 03/04/21 13:40 WBC RBC Hgb Hct MCV MCH MCHC RDW Std Deviation RDW Coeff of Kitty Plt Count MPV Immature Gran % (Auto) Neut % (Auto) Lymph % (Auto) [place] % (Auto) Eos % (Auto) Baso % (Auto) Absolute Neuts (auto) Absolute Lymphs (auto) Nucleated RBC % D-Dimer Quant (PE/DVT) Sodium Potassium Chloride Carbon Dioxide Anion Gap BUN Creatinine Estim Creat Clear Calc Est GFR (MDRD) Af Amer Est GFR (MDRD) Non-Af BUN/Creatinine Ratio Glucose Calcium Troponin I High Sens 22 Radiography Diagnostic Testing: Clinical Impression(s) from Imaging Studies Chest X-Ray 03/04/21 12:30 IMPRESSION: No acute abnormality is present. Electronically Signed: Deonte Lozano MD at 12:52 EDT , Service support , EKG Initial EKG: Comments: Normal sinus rhythm ventricular rate of 67 bpm. Discharge Plan Triage Chief Complaint: Chest Pain ED Provider: Bonifacio Abdullahi Dx/Rx/DC Orders Clinical Impression: Chest pain, Acute dyspnea Prescriptions: No Action cholecalciferol (vitamin D3) 25 mcg (1,000 unit) Capsule 25 mcg PO DAILY RF: 0 atorvastatin 20 mg tablet 80 mg PO QHS RF: 0 melatonin 3 mg Tablet 3 mg PO QHS RF: 0 pantoprazole 40 mg tablet,delayed release (DR/EC) 40 mg PO DAILY RF: 0 escitalopram oxalate 10 mg tablet 10 mg PO DAILY RF: 0 aspirin [Adult Low Dose Aspirin] 81 mg tablet,delayed release (DR/EC) 81 mg PO DAILY RF: 0 lisinopril 10 mg tablet 10 mg PO DAILY Qty: 90 RF: 3 potassium chloride 20 mEq tablet extended release 20 meq PO .COMPLEX Qty: 30 RF: 12 furosemide 40 mg tablet 40 mg PO DAILY Qty: 90 RF: 3 Primary Care Provider: Alisson Armenta Referrals: lAisson Armenta MD [Primary Care Provider] - 3-5 Days if not improving Disposition Disposition: Home, Self Care
[2021-03-04 12:24] VITALS: BP 148/69; PULSE 64; RESP 16; O2SAT 97
--- NOTE | 2021-03-04 12:30 | RAD_ITS ---
STUDY: X-RAY CHEST REASON FOR EXAM: Female, 75 years old. Dyspnea TECHNIQUE: Single AP portable view of the chest. COMPARISON: Comparison is made with prior examination dated 01/02/2021. FINDINGS: EKG electrodes are seen. The lungs are clear and expanded. There is no demonstrated pleural abnormality. Sternal cerclage wires and vascular clips are present from a prior sternotomy and coronary artery bypass graft procedure (CABG). Normal mediastinum and rafael. Normal visualized pulmonary arteries. Normal visualized aortic arch and descending thoracic aorta. There are degenerative changes of the visualized thoracic spine. Normal visualized ribs, clavicles, and shoulders. There is no demonstrated abnormality of the visualized soft tissue structures of the upper abdomen. RAD/Chest 1 View (Portable) IMPRESSION: No acute abnormality is present. Electronically Signed: Deonte Lozano MD at 12:52 EDT , Service support ,
[2021-03-04 12:38] LABS: Absolute Lymphocyte Count 0.62 X10^3/uL (0.83-4.51); Absolute Neutrophil Count 5.3 X10^3/uL (2.0-7.7); Basophil# 0.05 X10^3/uL; Basophil% 0.7 % (0-1); Eosinophil# 0.09 X10^3/uL; Eosinophils% 1.3 % (0-5); Hematocrit 44.2 % (37-47); Hemoglobin 14.5 g/dL (12.0-15.0); Lymphocyte # 0.62 X10^3/ul (0.83-4.51); Lymphocyte % 9.1 % (19-41); Mean Corp Hgb Conc 32.8 g/dL (32-36); Mean Corpuscular Hgb 30.3 pg (27.0-32.0); Mean Corpuscular Volume 92.5 fL (81-99); Monocyte# 0.74 X10^3/uL; Monocyte% 10.9 % (0-10); NRBC Flagged by Analyzer 0 % (0-5); Neutrophil # 5.28 X10^3/uL (2.7-7.7); Neutrophil % 77.6 % (47-70); Platelet Count 274 K/mm3 (150-450); RBC Distribution Width CV 15.8 % (11.6-14.6); RBC Distribution Width SD 54.2 fl (35.1-43.9); Red Blood Count 4.78 M/mm3 (4.2-5.4); White Blood Count 6.8 K/mm3 (4.4-11.0)
[2021-03-04 12:46] LABS: D-Dimer Quantitative (DVT/PE) 0.39 FEU/ug/m (0.27-0.49)
[2021-03-04 12:54] LABS: Anion Gap 6 (5-15); BUN 14 mg/dL (7-18); BUN/Creat Ratio 16.4 RATIO (10-20); Calcium,Total 9.5 mg/dL (8.5-10.1); Chloride 103 mmol/L (98-107); Creatinine, Serum 0.85 mg/dL (0.55-1.02); EST Glomerular Filtration Rate 69 mL/min (>60); Est Glom Filt Rate - Afr Amer 83 mL/min (>60); Estimated Creatinine Clearance 53.53 ml/min; Glucose 105 mg/dL (74-106); Potassium 4.1 mmol/L (3.5-5.1); Sodium Level 140 mmol/L (136-145); Troponin-I HS 22 pg/mL (3.0-54.0)
[2021-03-04 13:25] VITALS: BP 143/74; PULSE 62; RESP 16; O2SAT 94
[2021-03-04 14:03] LABS: Troponin-I HS 22 pg/mL (3.0-54.0)
[2021-03-04 14:35] VITALS: O2SAT 98
[2021-03-04 14:36] VITALS: BP 144/59; PULSE 87; RESP 18; O2SAT 98
== END 2021-03-04 14:57 | disposition home or self-care (01) ==
PROVIDERS: Emergency Provider Emergency Medicine; PCP Internal Medicine
DX: R07.9 Chest pain, unspecified (principal); R06.00 Dyspnea, unspecified; F41.9 Anxiety disorder, unspecified; F32.A Depression, unspecified; I25.10 Atherosclerotic heart disease of native coronary artery without angina pectoris; I10 Essential (primary) hypertension; E78.5 Hyperlipidemia, unspecified; M19.90 Unspecified osteoarthritis, unspecified site; Z95.1 Presence of aortocoronary bypass graft; Z79.899 Other long term (current) drug therapy
CPT/HCPCS: 71045; 80048; 84484; 85025; 85379; 87426; 93005; 99285

== ENCOUNTER 2021-03-07 13:38 | Emergency (ER) | payer MEDICARE, SELFPAY ==
[2021-03-07 13:44] VITALS: BP 120/54; PULSE 74; RESP 18; TEMP 36.6; O2SAT 96; BMI 23.7
--- NOTE | 2021-03-07 14:25 | RAD_ITS ---
STUDY: X-RAY CHEST REASON FOR EXAM: Female, 75 years old. Chest pain TECHNIQUE: Frontal view of the chest COMPARISON: 03/04/21 FINDINGS: The lungs are clear. There are no pleural effusions. There is no pneumothorax. The heart is normal in size. Again noted are sternotomy wires. The visualized osseous structures are within normal limits. RAD/Chest 1 View (Portable) IMPRESSION: No acute thoracic pathology. Electronically Signed: Danny Jordan MD at 15:22 EDT Tel , Service support ,
--- NOTE | 2021-03-07 14:25 | EKG12_ITS ---
Test Reason : CP Blood Pressure : / mmHG Vent. Rate : 072 BPM Atrial Rate : 072 BPM P-R Int : 134 ms QRS Dur : 086 ms QT Int : 442 ms P-R-T Axes : 044 015 112 degrees QTc Int : 483 ms Normal sinus rhythm ST & T wave abnormality, consider lateral ischemia Prolonged QT Abnormal ECG Confirmed by MILAN DELANEY, ASHANTI ([id number]), make up editor RIA VAZQUEZ ([id number]) on 03/11/2021 8:38:28 AM Referred By: /BB Confirmed By:ASHANTI YATES MD
--- NOTE | 2021-03-07 14:28 | EDS_ITS ---
HPI History of Present Illness Chief Complaint: Chest Pain Informant: patient Narrative Narrative: 75-year-old female presenting with chest pain, left and right upper back pain which started yesterday. She was also seen in the ED 3 days ago for similar complaints. She has associated shortness of breath. History of previous coronary artery bypass surgery. Prior similar symptoms: Yes Recent Illness/Hospitalization: No PFSH PFSH Medical History Anxiety Anxiety and depression Atherosclerosis of coronary artery of [place] heart without angina pectoris Atherosclerotic heart disease of [place] coronary artery without angina pectoris Community acquired pneumonia Essential (primary) hypertension Heme positive stool History of non-ST elevation myocardial infarction (NSTEMI) (01/02/21) HLD (hyperlipidemia) Iron deficiency anemia Osteoarthritis Pleural effusion, left Pleuritis Postoperative atrial fibrillation (11/06/20) Home Medications atorvastatin 80 mg PO QHS 10/30/20 [History Last Taken 10/28/20] cholecalciferol (vitamin D3) 25 mcg PO DAILY 10/30/20 [History Last Taken 10/30/20] melatonin 3 mg PO QHS 11/19/20 [History Last Taken Unknown] escitalopram oxalate 10 mg PO DAILY 01/02/21 [History Last Taken Unknown] pantoprazole 40 mg PO DAILY 01/02/21 [History Last Taken Unknown] aspirin 81 mg tablet,delayed release 81 mg PO DAILY 01/17/21 [History Last Taken Unknown] lisinopril 10 mg tablet 10 mg PO DAILY #90 tab 01/17/21 [Rx Last Taken Unknown] potassium chloride 20 mEq tablet,extended release 20 meq PO .COMPLEX #30 tab 02/04/21 [Rx Last Taken Unknown] furosemide 40 mg tablet 40 mg PO DAILY #90 tab 02/05/21 [Rx Last Taken Unknown] Allergy/AdvReac Type Severity Reaction Status Date / Time iodine Allergy doesnt Verified 03/07/21 13:38 feel well Family History Father No problems noted. Mother CHF (congestive heart failure) Surgical History H/O coronary artery bypass surgery (11/04/20) History of coronary artery stent placement (03/22/06) History of left heart catheterization (10/30/20) History of repair of retinal tear by laser photocoagulation Hx of appendectomy Social History household members: spouse housing: house Smoking Status: Never smoker alcohol intake: current alcohol intake frequency: other substance use type: does not use ROS ROS ED Constitutional Constitutional ED: Denies fever(s) Eyes Eyes: Denies change in vision ENT ENT ED: Denies rhinorrhea or sore throat Cardiovascular Cardiovascular: Reports chest pain; Denies palpitations Respiratory/Chest Respiratory/Chest: Reports dyspnea; Denies cough Gastrointestinal Gastrointestinal: Denies abdominal pain, diarrhea, nausea or vomiting Genitourinary Genitourinary ED: Denies dysuria Musculoskeletal Musculoskeletal: Reports back pain; Denies myalgias Integumentary Denies rash Neurologic Neurologic: Denies headache(s) Psychiatric Psychiatric: Denies suicidal thoughts EXAM Physical Exam Const Vital Signs: 03/07/21 13:44 03/07/21 14:37 03/07/21 14:41 Temperature 97.8 F Temperature Source Oral Pulse Rate 74 68 Respiratory Rate 18 16 Respiratory Effort Normal Non-Labored Blood Pressure 120/54 L 120/58 L Blood Pressure Mean 76 78 Pulse Ox 96 100 97 Oxygen Delivery Method Room Air Room Air Room Air 03/07/21 15:08 03/07/21 15:35 03/07/21 17:03 Temperature Temperature Source Pulse Rate 73 72 69 Respiratory Rate 21 H 18 Respiratory Effort Blood Pressure 125/55 H 136/57 H 134/60 H Blood Pressure Mean 78 83 84 Pulse Ox 97 97 Oxygen Delivery Method Room Air Room Air Positive well nourished and well developed General Appearance ED: well developed HEENT Reports normocephalic and head/scalp atraumatic Eyes PERRL and EOMs intact bilaterally Neck supple General: Negative for tenderness Chest Wall inspection of chest normal Resp normal respiratory effort and clear to auscultation bilaterally Cardio regular rate and regular rhythm GI non-tender and non-distended Palpation: soft; Negative for guarding or rebound tenderness present no CVA tenderness Extremity normal to inspection Neuro oriented x3 Sensorium / Orientation: alert Psych mental status grossly normal MDM MDM MDM Narrative Medical decision making narrative: Patient was given aspirin per EMS. CBC, chemistries unremarkable. D-dimer negative. Troponin is negative. Chest x-ray read by myself and radiology shows no acute process. Delta troponin is also negative. Patient is resting comfortably on reevaluation. Discussed with Dr. Figueroa covering for Dr. Armenta. Patient will follow up in the office. Advised return to ED for worsening complaints. Lab Data Attestation: I reviewed the patient's lab results. Labs: Laboratory Results - last 24 hr 03/07/21 03/07/21 03/07/21 13:24 13:24 14:40 WBC 7.0 RBC 4.29 Hgb 12.8 Hct 39.4 MCV 91.8 MCH 29.8 MCHC 32.5 RDW Std Deviation 52.3 H RDW Coeff of Kitty 15.4 H Plt Count 283 MPV 12.4 H Immature Gran % (Auto) 0.400 Neut % (Auto) 76.3 H Lymph % (Auto) 10.3 L [place] % (Auto) 11.2 H Eos % (Auto) 0.9 Baso % (Auto) 0.9 Absolute Neuts (auto) 5.3 Absolute Lymphs (auto) 0.72 L Nucleated RBC % 0 D-Dimer Quant (PE/DVT) 0.34 Sodium 140 Potassium 3.9 Chloride 106 Carbon Dioxide 28.0 Anion Gap 6 BUN 18 Creatinine 0.80 Estim Creat Clear Calc 56.88 Est GFR (MDRD) Af Amer 89 Est GFR (MDRD) Non-Af 74 BUN/Creatinine Ratio 22.4 H Glucose 98 Calcium 9.5 Troponin I High Sens 21 03/07/21 16:45 WBC RBC Hgb Hct MCV MCH MCHC RDW Std Deviation RDW Coeff of [place] Plt Count MPV Immature Gran % (Auto) Neut % (Auto) Lymph % (Auto) [place] % (Auto) Eos % (Auto) Baso % (Auto) Absolute Neuts (auto) Absolute Lymphs (auto) Nucleated RBC % D-Dimer Quant (PE/DVT) Sodium Potassium Chloride Carbon Dioxide Anion Gap BUN Creatinine Estim Creat Clear Calc Est GFR (MDRD) Af Amer Est GFR (MDRD) Non-Af BUN/Creatinine Ratio Glucose Calcium Troponin I High Sens 26 Radiography Chest X-Ray - ED: 1 View, Read by ED Physician and Read by Radiologist Diagnostic Testing: Clinical Impression(s) from Imaging Studies Chest X-Ray 03/07/21 14:25 IMPRESSION: No acute thoracic pathology. Electronically Signed: Danny Jordan MD at 15:22 EDT Tel , Service support , EKG Initial EKG: Attestation: I personally reviewed and interpreted this EKG as follows: Interpretation: Sinus Rhythm Comments: Similar to previous. Prior EKG tracings: available for review Prior: Unchanged Discharge Plan Triage Chief Complaint: Chest Pain ED Provider: Tawana Sorensen Dx/Rx/DC Orders Clinical Impression: Chest pain, Back pain Instructions: ED Chest Pain, Uncertain Cause Prescriptions: No Action cholecalciferol (vitamin D3) 25 mcg (1,000 unit) Capsule 25 mcg PO DAILY RF: 0 atorvastatin 20 mg tablet 80 mg PO QHS RF: 0 melatonin 3 mg Tablet 3 mg PO QHS RF: 0 pantoprazole 40 mg tablet,delayed release (DR/EC) 40 mg PO DAILY RF: 0 escitalopram oxalate 10 mg tablet 10 mg PO DAILY RF: 0 aspirin [Adult Low Dose Aspirin] 81 mg tablet,delayed release (DR/EC) 81 mg PO DAILY RF: 0 lisinopril 10 mg tablet 10 mg PO DAILY Qty: 90 RF: 3 potassium chloride 20 mEq tablet extended release 20 meq PO .COMPLEX Qty: 30 RF: 12 furosemide 40 mg tablet 40 mg PO DAILY Qty: 90 RF: 3 Primary Care Provider: Alisson Armenta Referrals: Alisson Armenta MD [Primary Care Provider] - Disposition Disposition: Home, Self Care
[2021-03-07 14:37] VITALS: O2SAT 100
[2021-03-07 14:41] VITALS: BP 120/58; PULSE 68; RESP 16; O2SAT 97
[2021-03-07 14:45] LABS: Absolute Lymphocyte Count 0.72 X10^3/uL (0.83-4.51); Absolute Neutrophil Count 5.3 X10^3/uL (2.0-7.7); Basophil# 0.06 X10^3/uL; Basophil% 0.9 % (0-1); Eosinophil# 0.06 X10^3/uL; Eosinophils% 0.9 % (0-5); Hematocrit 39.4 % (37-47); Hemoglobin 12.8 g/dL (12.0-15.0); Lymphocyte # 0.72 X10^3/ul (0.83-4.51); Lymphocyte % 10.3 % (19-41); Mean Corp Hgb Conc 32.5 g/dL (32-36); Mean Corpuscular Hgb 29.8 pg (27.0-32.0); Mean Corpuscular Volume 91.8 fL (81-99); Mean Platelet Vol. 12.4 fl (6.2-12.0); Monocyte# 0.78 X10^3/uL; Monocyte% 11.2 % (0-10); NRBC Flagged by Analyzer 0 % (0-5); Neutrophil # 5.34 X10^3/uL (2.7-7.7); Neutrophil % 76.3 % (47-70); Platelet Count 283 K/mm3 (150-450); RBC Distribution Width CV 15.4 % (11.6-14.6); RBC Distribution Width SD 52.3 fl (35.1-43.9); Red Blood Count 4.29 M/mm3 (4.2-5.4)
[2021-03-07 14:59] LABS: Anion Gap 6 (5-15); BUN 18 mg/dL (7-18); BUN/Creat Ratio 22.4 RATIO (10-20); Calcium,Total 9.5 mg/dL (8.5-10.1); Chloride 106 mmol/L (98-107); EST Glomerular Filtration Rate 74 mL/min (>60); Est Glom Filt Rate - Afr Amer 89 mL/min (>60); Estimated Creatinine Clearance 56.88 ml/min; Glucose 98 mg/dL (74-106); Potassium 3.9 mmol/L (3.5-5.1); Sodium Level 140 mmol/L (136-145); Troponin-I HS 21 pg/mL (3.0-54.0)
[2021-03-07 15:00] LABS: D-Dimer Quantitative (DVT/PE) 0.34 FEU/ug/m (0.27-0.49)
[2021-03-07 15:08] VITALS: BP 125/55; PULSE 73; RESP 21; O2SAT 97
[2021-03-07 15:35] VITALS: BP 136/57; PULSE 72; RESP 18; O2SAT 97
[2021-03-07 17:03] VITALS: BP 134/60; PULSE 69
[2021-03-07 17:06] LABS: Troponin-I HS 26 pg/mL (3.0-54.0)
== END 2021-03-07 18:02 | disposition home or self-care (01) ==
PROVIDERS: Emergency Provider Emergency Medicine; PCP Internal Medicine
DX: R07.9 Chest pain, unspecified (principal); M54.6 Pain in thoracic spine; F41.9 Anxiety disorder, unspecified; F32.A Depression, unspecified; I25.10 Atherosclerotic heart disease of native coronary artery without angina pectoris; I10 Essential (primary) hypertension; E78.5 Hyperlipidemia, unspecified; M19.90 Unspecified osteoarthritis, unspecified site; Z95.1 Presence of aortocoronary bypass graft; Z79.899 Other long term (current) drug therapy
CPT/HCPCS: 71045; 80048; 84484; 85025; 85379; 93005; 99285; A4216

== ENCOUNTER 2021-04-09 09:22 | Emergency (ER) | payer MEDICARE, SELFPAY ==
[2021-04-09 09:22] VITALS: BP 158/75; PULSE 84; RESP 14; TEMP 36.7; O2SAT 96; BMI 24.5
--- NOTE | 2021-04-09 09:44 | RAD_ITS ---
STUDY: X-RAY CHEST REASON FOR EXAM: Female, 75 years old. Cough and chest pain in the right upper back. TECHNIQUE: Single AP portable view of the chest. COMPARISON: Comparison is made with prior study dated 03/07/2021. FINDINGS: EKG electrodes are seen. The lungs are clear and expanded. There is no demonstrated pleural abnormality. Sternal cerclage wires and vascular clips are present from a prior sternotomy and coronary artery bypass graft procedure (CABG). Normal mediastinum and rafael. Normal visualized pulmonary arteries. Normal visualized aortic arch and descending thoracic aorta. There are degenerative changes of the visualized thoracic spine. Normal visualized ribs, clavicles, and shoulders. There is no demonstrated abnormality of the visualized soft tissue structures of the upper abdomen. RAD/Chest 1 View (Portable) IMPRESSION: No acute abnormality is seen. Electronically Signed: Deonte Lozano MD at 11:59 EST , Service support ,
--- NOTE | 2021-04-09 09:44 | EKG12_ITS ---
Test Reason : COUGH Blood Pressure : / mmHG Vent. Rate : 074 BPM Atrial Rate : 074 BPM P-R Int : 118 ms QRS Dur : 088 ms QT Int : 364 ms P-R-T Axes : 067 032 110 degrees QTc Int : 404 ms Normal sinus rhythm ST & T wave abnormality, consider lateral ischemia Abnormal ECG Confirmed by CARLOS DELANEY, LIBERTAD ([id number]), industrial editor RIA VAZQUEZ ([id number]) on 04/10/2021 2:26:50 P M Referred By: JESSICA Confirmed By:BOB GONZALEZ MD
--- NOTE | 2021-04-09 09:46 | EDS_ITS ---
HPI History of Present Illness Chief Complaint: Cough Informant: patient Narrative Narrative: Patient is a 75-year-old female presenting with chest pain and back pain as well as cough. Patient states last night she suddenly developed a sharp pain in her right mid back. It radiates up to her shoulder. Its been intermittent since last night and is worse when she moves or when she coughs. This morning about an hour prior to arrival she developed persistent cough. She states it is nonproductive but it is causing her to salivate more. She also has a pressure in the center of her chest. She points to just below her sternum. She denies any radiation of discomfort. She has chronic peripheral edema but notes it has been worse lately. She reports associated shortness of breath. She is not on any anticoagulation. She has a history of DVT or PE. She did recently have cardiac bypass in October of this year as well as a stroke. She denies any residual deficits from her stroke. Patient lives home alone. Patient denies any black or blood in her stool. She denies associated nausea or vomiting. No abdominal pain. No fever chills. No upper respiratory symptoms. [facility] Medical History Anxiety Anxiety and depression Atherosclerosis of coronary artery of [place] heart without angina pectoris Atherosclerotic heart disease of [place] coronary artery without angina pectoris Community acquired pneumonia Essential (primary) hypertension Heme positive stool History of non-ST elevation myocardial infarction (NSTEMI) (01/02/21) HLD (hyperlipidemia) Iron deficiency anemia Osteoarthritis Pleural effusion, left Pleuritis Postoperative atrial fibrillation (11/06/20) Home Medications cholecalciferol (vitamin D3) 25 mcg PO DAILY 10/30/20 [History Last Taken 04/08/21] melatonin 3 mg PO QHS 11/19/20 [History Last Taken 04/08/21] escitalopram oxalate 10 mg PO DAILY 01/02/21 [History Last Taken 04/08/21] pantoprazole 40 mg PO DAILY 01/02/21 [History Last Taken 04/08/21] lisinopril 10 mg tablet 10 mg PO DAILY #90 tab 01/17/21 [Rx Last Taken 04/08/21] furosemide 40 mg tablet 40 mg PO DAILY #90 tab 02/05/21 [Rx Last Taken 04/08/21] aspirin 81 mg tablet,delayed release 81 mg PO DAILY #90 tab 03/13/21 [Rx Last Taken 04/08/21] potassium chloride 20 mEq tablet,extended release 20 meq PO BID #30 tab 04/02/21 [Rx Last Taken 04/08/21] atorvastatin 80 mg PO DAILY 04/09/21 [History Last Taken 04/08/21] levothyroxine 25 mcg PO DAILY 04/09/21 [History Last Taken 04/08/21] Allergy/AdvReac Type Severity Reaction Status Date / Time iodine Allergy doesnt Verified 04/09/21 09:24 feel well Family History Father No problems noted. Mother CHF (congestive heart failure) Surgical History H/O coronary artery bypass surgery (11/04/20) History of coronary artery stent placement (03/22/06) History of left heart catheterization (10/30/20) History of repair of retinal tear by laser photocoagulation Hx of appendectomy Social History household members: spouse housing: house Smoking Status: Never smoker alcohol intake: current alcohol intake frequency: other substance use type: does not use ROS ROS ED Constitutional Constitutional ED: Denies chills or fever(s) ENT ENT ED: Denies rhinorrhea or sore throat Cardiovascular Cardiovascular: Reports chest pain; Denies palpitations Respiratory/Chest Respiratory/Chest: Reports cough and dyspnea; Denies sputum Gastrointestinal Gastrointestinal: Denies abdominal pain, diarrhea, melena, nausea or vomiting Musculoskeletal Musculoskeletal: Reports back pain; Denies arthralgias or myalgias Integumentary Denies rash Neurologic Neurologic: Denies headache(s), paresthesias or weakness Psychiatric Psychiatric: Denies depression EXAM Physical Exam Const Vital Signs: 04/09/21 09:22 04/09/21 10:36 04/09/21 10:40 Temperature 98.1 F Temperature Source Temporal Pulse Rate 84 Respiratory Rate 14 Respiratory Effort Normal Respiratory Depth Normal Respiratory Pattern Normal Blood Pressure 158/75 H Blood Pressure Mean 102 Pulse Ox 96 Oxygen Delivery Method Room Air Room Air Room Air 04/09/21 15:37 Temperature Temperature Source Pulse Rate 72 Respiratory Rate 16 Respiratory Effort Respiratory Depth Respiratory Pattern Blood Pressure 152/66 H Blood Pressure Mean 94 Pulse Ox 97 Oxygen Delivery Method Room Air Positive well nourished and well developed General Appearance ED: well developed HEENT Reports moist mucous membranes Negative for trauma Eyes PERRL and EOMs intact bilaterally General Eye ED: Yes pale conjunctiva Neck no lymphadenopathy, supple and no JVD Chest Wall inspection of chest normal Chest Narrative: Midline sternotomy scar with some associated tenderness pa lpation Resp normal respiratory effort Resp Narrative: Mild crackles of the right upper lung Auscultation: diminished lung sounds; Negative for wheezes Cardio regular rate, regular rhythm and no murmurs GI normal to inspection, nondistended, normoactive bowel sounds and non-tender Back/Spine no CVA tenderness Back/Spine Narrative: No reproducible tenderness palpation but patient does point to her right lateral mid/lower thoracic region as her area of pain Neuro oriented x3 and No no sensory deficits noted Sensorium / Orientation: alert Motor Exam: general weakness Psych mental status grossly normal Skin no rashes or lesions noted and no wounds MDM MDM MDM Narrative Medical decision making narrative: Patient is evaluated for cough, chest pain and back pain. She is a cough suddenly became severe about an hour prior to arrival. She initially told me she had a pressure in her chest but then denied it for nursing staff. Her pain seems to be mostly musculoskeletal and is pretty diffuse. She is hemodynamically stable. She is quite anxious in the ER. EKG does not show any acute changes or acute ischemic changes.-See troponin is elevated at 117 however patient seems to have an oscillating troponin over the past few months. Delta troponin is stable at 113. D-dimer is elevated so a CTA is obtained to rule out PE as a cause of her symptoms. This is also negative for any acute process. Covid test is negative. No signs of pneumonia. Incidentally patient is noted to have improvement of her symptoms after receiving IV Benadryl. I question if she could have an allergic component to this cough/salivation versus anxiety. I did suggest following up with ENT and she states she is in the process of making appointment to see ENT. She is given another referral today. I spoke with her device sales consultant, Dr. Sanabria who is very familiar with her. He states with this work-up he is comfortable with her following up outpatient. Patient and I are both in agreement with this plan. Family at the bedside is agreeable with plan. Patient discharged home in stable and improved condition. Lab Data Attestation: I reviewed the patient's lab results. Labs: Laboratory Results - last 24 hr 04/09/21 04/09/21 04/09/21 10:05 10:05 10:05 WBC 8.9 RBC 4.09 L Hgb 11.8 L Hct 37.6 MCV 91.9 MCH 28.9 MCHC 31.4 L RDW Std Deviation 52.8 H RDW Coeff of Kitty 15.5 H Plt Count 213 MPV 11.6 Immature Gran % (Auto) 0.300 Neut % (Auto) 78.9 H Lymph % (Auto) 6.7 L [place] % (Auto) 12.5 H Eos % (Auto) 1.2 Baso % (Auto) 0.4 Absolute Neuts (auto) 7.0 Absolute Lymphs (auto) 0.60 L Nucleated RBC % 0 Differential Comment SCANNED Platelet Estimate ADEQUATE Plt Morphology Comment LARGE PT Cancelled INR Cancelled APTT Cancelled D-Dimer Quant (PE/DVT) Cancelled Sodium 139 Potassium 4.2 Chloride 107 Carbon Dioxide 27.0 Anion Gap 5 BUN 12 Creatinine 0.70 Estim Creat Clear Calc 45.50 Est GFR (MDRD) Af Amer 104 Est GFR (MDRD) Non-Af 86 BUN/Creatinine Ratio 17.1 Glucose 110 H Calcium 9.0 Troponin I High Sens 117 H B-Natriuretic Peptide 04/09/21 04/09/21 04/09/21 10:05 10:40 14:56 WBC RBC Hgb Hct MCV MCH MCHC RDW Std Deviation RDW Coeff of Kitty Plt Count MPV Immature Gran % (Auto) Neut % (Auto) Lymph % (Auto) [place] % (Auto) Eos % (Auto) Baso % (Auto) Absolute Neuts (auto) Absolute Lymphs (auto) Nucleated RBC % Differential Comment Platelet Estimate Plt Morphology Comment PT 12.7 INR 1.0 APTT 28.7 D-Dimer Quant (PE/DVT) 1.02 H* Sodium Potassium Chloride Carbon Dioxide Anion Gap BUN Creatinine Estim Creat Clear Calc Est GFR (MDRD) Af Amer Est GFR (MDRD) Non-Af BUN/Creatinine Ratio Glucose Calcium Troponin I High Sens 113 H B-Natriuretic Peptide 113.5 H Radiography Chest X-Ray - ED: 1 View, Read by ED Physician, Read by Radiologist and No Acute Disease Diagnostic Testing: Clinical Impression(s) from Imaging Studies Chest X-Ray 04/09/21 09:44 IMPRESSION: No acute abnormality is seen. Electronically Signed: Deonte Lozano MD at 11:59 EST , Service support , Chest CTA 04/09/21 11:25 IMPRESSION: No evidence of pulmonary embolism. Mild scarring at the lung apices as well as at the left lung base slightly worse on the left side. Electronically Signed: Deonte Lozano MD at 13:29 EST , Service support , Rhythm Strip Rhythm Strip: Sinus Rhythm Rate: 74 Ectopy: None EKG Initial EKG: Attestation: I personally reviewed and interpreted this EKG as follows: Interpretation: Sinus Rhythm Comments: Normal sinus rhythm rate of 74 Normal axis Normal intervals T wave version aVL Prior EKG tracings: available for review Prior: Unchanged Discharge Plan Triage Chief Complaint: Cough ED Provider: Suellen Jasso Dx/Rx/DC Orders Clinical Impression: Chest pain, Cough, Back pain Instructions: ED Chest Pain, Uncertain Cause Prescriptions: No Action cholecalciferol (vitamin D3) 25 mcg (1,000 unit) Capsule 25 mcg PO DAILY RF: 0 melatonin 3 mg Tablet 3 mg PO QHS RF: 0 pantoprazole 40 mg tablet,delayed release (DR/EC) 40 mg PO DAILY RF: 0 escitalopram oxalate 10 mg tablet 10 mg PO DAILY RF: 0 atorvastatin 80 mg tablet 80 mg PO DAILY RF: 0 levothyroxine 25 mcg tablet 25 mcg PO DAILY RF: 0 lisinopril 10 mg tablet 10 mg PO DAILY Qty: 90 RF: 3 furosemide 40 mg tablet 40 mg PO DAILY Qty: 90 RF: 3 aspirin [Adult Low Dose Aspirin] 81 mg tablet,delayed release (DR/EC) 81 mg PO DAILY Qty: 90 RF: 3 potassium chloride 20 mEq tablet extended release 20 meq PO BID Qty: 30 RF: 12 Primary Care Provider: Alisson Armenta Referrals: Stephen Monroe MD [STAFF PHYSICIAN] - Alisson Armenta MD [Primary Care Provider] - Activity Restrictions/Additional Instructions: Take [id number] Benadryl as needed as well as Zyrtec to help with your symptoms. Please follow-up with ear nose and throat as planned as well as car diology. Disposition Disposition: Home, Self Care
[2021-04-09 10:17] LABS: Basophil# 0.04 X10^3/uL; Basophil% 0.4 % (0-1); Eosinophil# 0.11 X10^3/uL; Eosinophils% 1.2 % (0-5); Hematocrit 37.6 % (37-47); Hemoglobin 11.8 g/dL (12.0-15.0); Lymphocyte % 6.7 % (19-41); Mean Corp Hgb Conc 31.4 g/dL (32-36); Mean Corpuscular Hgb 28.9 pg (27.0-32.0); Mean Corpuscular Volume 91.9 fL (81-99); Mean Platelet Vol. 11.6 fl (6.2-12.0); Monocyte# 1.12 X10^3/uL; Monocyte% 12.5 % (0-10); NRBC Flagged by Analyzer 0 % (0-5); Neutrophil # 7.04 X10^3/uL (2.7-7.7); Neutrophil % 78.9 % (47-70); POSITIVE COUNT YES; POSITIVE DIFFERENTIAL YES; Platelet Count 213 K/mm3 (150-450); RBC Distribution Width CV 15.5 % (11.6-14.6); RBC Distribution Width SD 52.8 fl (35.1-43.9); Red Blood Count 4.09 M/mm3 (4.2-5.4); White Blood Count 8.9 K/mm3 (4.4-11.0)
[2021-04-09] MEDS: Aspirin 81 MG TAB.CHEW 324 MG PO (10:18)
--- NOTE | 2021-04-09 10:20 | NURSING ---
PER LAB, BLUE TOP IS SHORT
[2021-04-09 10:34] LABS: Anion Gap 5 (5-15); BUN 12 mg/dL (7-18); BUN/Creat Ratio 17.1 RATIO (10-20); Chloride 107 mmol/L (98-107); EST Glomerular Filtration Rate 86 mL/min (>60); Est Glom Filt Rate - Afr Amer 104 mL/min (>60); Glucose 110 mg/dL (74-106); Potassium 4.2 mmol/L (3.5-5.1); Sodium Level 139 mmol/L (136-145); Troponin-I HS 117 pg/mL (3.0-54.0)
[2021-04-09 10:40] VITALS: O2SAT 96
[2021-04-09 10:44] LABS: Differential Indicated SCAN CRITERIA MET
[2021-04-09 10:45] LABS: Differential Comment SCANNED; Platelet Estimate ADEQUATE (ADEQ); Platelet Morphology LARGE
[2021-04-09 10:57] LABS: BNP,B-Type NATRIURETIC PEPTIDE 113.5 pg/mL (0-100)
[2021-04-09 11:10] LABS: Prothrombin Time (Protime)PT. 12.7 SECONDS (11.7-14.9)
[2021-04-09 11:11] LABS: Partial Thromboplast Time 28.7 Seconds (24.1-36.2)
[2021-04-09 11:15] LABS: D-Dimer Quantitative (DVT/PE) 1.02 FEU/ug/m (0.27-0.49)
--- NOTE | 2021-04-09 11:25 | CT_ITS ---
STUDY: CTA CHEST REASON FOR EXAM: Female, 75 years old. Sob, elevated dimer RADIATION DOSAGE (If Supplied By Facility): CTDIvol = ( 10.11 ) mGy, DLP = ( 367.81 ) mGycm TECHNIQUE: The examination was performed with the intravenous administration of IV 100mL Isovue-370. Post-processing of the angiographic images was performed, with multiplanar reformation and 3D reconstruction. Individualized dose optimization techniques were used for this CT. COMPARISON: Comparison is made with prior CT scan of the thorax dated 03/16/2019. FINDINGS: Normal enhancement of the main pulmonary artery and right and left pulmonary arteries. Normal enhancement of the bilateral peripheral pulmonary arteries. There is no demonstrated pulmonary embolism. Normal thoracic aorta and visualized great vessels. There is no demonstrated aortic dissection. Sternal cerclage wires and vascular clips are present from a prior sternotomy and coronary artery bypass graft procedure (CABG). Normal mediastinum. Normal hilar regions. Normal visualized trachea and bronchi. The lungs are well expanded. Mild linear scarring at the lung apices slightly more prominent on the right side. Mild increased markings at the lung bases slightly more prominent at the left lung base suggestive of scarring. There is a 7.4 mm bulla in the posterior medial segment of the left lower lobe. Normal pleura. Normal chest wall structures. There are degenerative changes of thoracic spine. Increased kyphosis. Small hiatal hernia. CT/CTA Chest W/WO Contrast IMPRESSION: No evidence of pulmonary embolism. Mild scarring at the lung apices as well as at the left lung base slightly worse on the left side. Electronically Signed: Deonte Lozano MD at 13:29 EST , Service support ,
[2021-04-09] MEDS: DiphenhydrAMINE 50 MG/ML Syringe IV (12:48)
[2021-04-09 15:32] LABS: Troponin-I HS 113 pg/mL (3.0-54.0)
[2021-04-09 15:37] VITALS: BP 152/66; PULSE 72; RESP 16; O2SAT 97
== END 2021-04-09 16:31 | disposition home or self-care (01) ==
PROVIDERS: Emergency Provider Emergency Medicine; PCP Internal Medicine
DX: R07.9 Chest pain, unspecified (principal); R05.9 Cough, unspecified; M54.6 Pain in thoracic spine; R06.02 Shortness of breath; F41.9 Anxiety disorder, unspecified; F32.A Depression, unspecified; I25.10 Atherosclerotic heart disease of native coronary artery without angina pectoris; I10 Essential (primary) hypertension; E78.5 Hyperlipidemia, unspecified; M19.90 Unspecified osteoarthritis, unspecified site; Z86.718 Personal history of other venous thrombosis and embolism; Z86.73 Personal history of transient ischemic attack (TIA), and cerebral infarction without residual deficits; Z79.899 Other long term (current) drug therapy; Z95.1 Presence of aortocoronary bypass graft
CPT/HCPCS: 36415; 71045; 71275; 80048; 83880; 84484; 85025; 85379; 85610; 85730; 87426; 93005; 96374; 96375; 99285; Q9967; A4216

== ENCOUNTER → 2021-05-08 12:05 | Outpatient (CLI) | payer MEDICARE, SELFPAY ==
[2021-05-08 12:28] LABS: Color, Urine Straw (Yellow); Glucose, Dipstick Normal (Normal); Ketone-Dipstick Negative (Negative); Leukocyte Esterase-Dipstick 25 /ul (Negative); Nitrite-Dipstick Negative (Negative); Occult Blood-Urine 10 /ul (Negative); Protein-Dipstick Negative (Negative); Urine Bilirubin Dipstick Negative (Negative); Urine Clarity Clear (Clear); Urine Urobilinogen Normal (Normal)
== END ==
PROVIDERS: PCP Internal Medicine; Visit Provider Internal Medicine
DX: N39.0 Urinary tract infection, site not specified (principal); R35.0 Frequency of micturition
CPT/HCPCS: 81002; 87086

== ENCOUNTER 2021-05-29 15:17 | Outpatient (CLI) | payer MEDICARE, SELFPAY ==
[2021-05-29 16:08] LABS: Anion Gap 6 (5-15); BUN 13 mg/dL (7-18); BUN/Creat Ratio 15.5 RATIO (10-20); Calcium,Total 9.2 mg/dL (8.5-10.1); Chloride 102 mmol/L (98-107); Creatinine, Serum 0.84 mg/dL (0.55-1.02); EST Glomerular Filtration Rate 70 mL/min (>60); Est Glom Filt Rate - Afr Amer 85 mL/min (>60); Glucose 98 mg/dL (74-106); Potassium 4.4 mmol/L (3.5-5.1); Sodium Level 138 mmol/L (136-145)
== END 2021-05-29 23:59 | disposition short-term general hospital (02) ==
LOC: LAB 15:19
PROVIDERS: PCP Internal Medicine; Referring Provider Internal Medicine Cardiovascular Disease; Visit Provider Internal Medicine Cardiovascular Disease
DX: R60.9 Edema, unspecified (principal)
CPT/HCPCS: 36415; 80048

== ENCOUNTER 2021-06-20 12:05 | Outpatient (CLI) | payer MEDICARE, SELFPAY ==
[2021-06-20 13:39] LABS: BNP,B-Type NATRIURETIC PEPTIDE 58.2 pg/mL (0-100)
[2021-06-20 13:48] LABS: ALB/GLOB Ratio 0.8 RATIO (0.9-2.4); AST(SGOT) 18 U/L (15-37); Alanine Aminotransfer ALT/SGPT 18 U/L (13-56); Albumin, Serum 3.1 g/dL (3.2-5.0); Alkaline Phosphatase 122 U/L (45-117); Anion Gap 5 (5-15); BUN 9 mg/dL (7-18); BUN/Creat Ratio 11.9 RATIO (10-20); Calcium,Total 8.9 mg/dL (8.5-10.1); Chloride 104 mmol/L (98-107); Creatinine, Serum 0.76 mg/dL (0.55-1.02); EST Glomerular Filtration Rate 79 mL/min (>60); Est Glom Filt Rate - Afr Amer 96 mL/min (>60); Glucose 85 mg/dL (74-106); Potassium 3.3 mmol/L (3.5-5.1); Protein, Total 7.1 g/dL (6.4-8.2); Sodium Level 138 mmol/L (136-145)
--- NOTE | 2021-06-20 14:30 | RAD_ITS ---
STUDY: X-RAY CHEST REASON FOR EXAM: Female, 75 years old. CHEST PAIN cough TECHNIQUE: XR Chest 2 Views COMPARISON: 04.09.21 FINDINGS: There is no demonstrated pleural abnormality. There are multiple median sternotomy wires. Normal size heart. Normal mediastinum and rfaael. Normal visualized pulmonary arteries. There is atherosclerotic calcification of the aortic arch with tortuosity. There are diffuse degenerative changes of the visualized thoracic spine. There is degenerative osteoarthritis of the bilateral shoulders. There is no demonstrated abnormality of the visualized soft tissue structures of the upper abdomen. RAD/Chest PA and Lateral IMPRESSION: There are no acute findings. Electronically Signed: Dannie Ortiz MD at 16:03 EST ,
== END 2021-06-20 23:59 | disposition short-term general hospital (02) ==
LOC: LAB 12:07
PROVIDERS: PCP Internal Medicine; Referring Provider Nurse Practitioner Family; Visit Provider Nurse Practitioner Family
DX: R06.00 Dyspnea, unspecified (principal); R60.9 Edema, unspecified; R05.3 Chronic cough
CPT/HCPCS: 36415; 71046; 80053; 83880

== ENCOUNTER → 2021-12-22 | Outpatient (CLI) | payer MEDICARE, SELFPAY ==
[2021-12-22 18:41] LABS: Anion Gap 7 (5-15); BUN 7 mg/dL (7-18); BUN/Creat Ratio 8.4 RATIO (10-20); Calcium,Total 9.5 mg/dL (8.5-10.1); Chloride 101 mmol/L (98-107); Creatinine, Serum 0.83 mg/dL (0.55-1.02); EST Glomerular Filtration Rate 71 mL/min (>60); Est Glom Filt Rate - Afr Amer 85 mL/min (>60); Glucose 108 mg/dL (74-106); Potassium 2.6 mmol/L (3.5-5.1); Sodium Level 141 mmol/L (136-145)
[2021-12-22 19:08] LABS: Free T3 2.7 pg/mL (2.18-3.98); Magnesium 1.5 mg/dL (1.6-2.6); T4 Free Direct 1.14 ng/dL (0.76-1.46); Thyroid Stim Hormone (TSH) 2.45 uIU/mL (0.358-3.74)
== END | disposition home or self-care (01) ==
PROVIDERS: PCP Internal Medicine; Referring Provider Nurse Practitioner Family; Visit Provider Nurse Practitioner Family
DX: E03.9 Hypothyroidism, unspecified (principal); Z79.899 Other long term (current) drug therapy
CPT/HCPCS: 36415; 80048; 83735; 84439; 84443; 84481

== ENCOUNTER → 2022-01-02 | Outpatient (CLI) | payer MEDICARE, SELFPAY ==
[2022-01-02 15:56] LABS: Anion Gap 3 (5-15); BUN 8 mg/dL (7-18); BUN/Creat Ratio 9.3 RATIO (10-20); Chloride 106 mmol/L (98-107); Creatinine, Serum 0.86 mg/dL (0.55-1.02); EST Glomerular Filtration Rate 68 mL/min (>60); Est Glom Filt Rate - Afr Amer 82 mL/min (>60); Glucose 96 mg/dL (74-106); Potassium 3.7 mmol/L (3.5-5.1); Sodium Level 139 mmol/L (136-145)
== END | disposition home or self-care (01) ==
LOC: MTLAB 14:09
PROVIDERS: PCP Internal Medicine; Referring Provider Internal Medicine Cardiovascular Disease; Visit Provider Internal Medicine Cardiovascular Disease
DX: R60.9 Edema, unspecified (principal)
CPT/HCPCS: 36415; 80048

== ENCOUNTER 2022-05-22 12:34 | Observation (INO) | payer MEDICARE, SELFPAY ==
[2022-05-22 12:35] VITALS: BP 169/79; PULSE 93; RESP 16; TEMP 35.8; O2SAT 100; BMI 24.7
[2022-05-22 13:11] LABS: Absolute Lymphocyte Count 1.59 X10^3/uL (0.83-4.51); Absolute Neutrophil Count 9.7 X10^3/uL (2.0-7.7); Basophil# 0.15 X10^3/uL; Basophil% 1.1 % (0-1); Eosinophils% 2.2 % (0-5); Hematocrit 52.1 % (37-47); Hemoglobin 16.7 g/dL (12.0-15.0); Lymphocyte # 1.59 X10^3/ul (0.83-4.51); Lymphocyte % 11.8 % (19-41); Mean Corp Hgb Conc 32.1 g/dL (32-36); Mean Corpuscular Hgb 26.9 pg (27.0-32.0); Mean Corpuscular Volume 83.9 fL (81-99); Mean Platelet Vol. 11.6 fl (6.2-12.0); Monocyte# 1.55 X10^3/uL; Monocyte% 11.5 % (0-10); NRBC Flagged by Analyzer 0 % (0-5); Neutrophil # 9.67 X10^3/uL (2.7-7.7); Neutrophil % 72.2 % (47-70); POSITIVE DIFFERENTIAL YES; Platelet Count 494 K/mm3 (150-450); RBC Distribution Width CV 14.9 % (11.6-14.6); RBC Distribution Width SD 44.2 fl (35.1-43.9); Red Blood Count 6.21 M/mm3 (4.2-5.4); White Blood Count 13.4 K/mm3 (4.4-11.0)
[2022-05-22 13:16] LABS: Differential Indicated SCAN CRITERIA MET
[2022-05-22 13:25] LABS: Anion Gap 6 (5-15); BUN 20 mg/dL (7-18); BUN/Creat Ratio 17.7 RATIO (10-20); Calcium,Total 10.1 mg/dL (8.5-10.1); Chloride 103 mmol/L (98-107); Creatinine, Serum 1.13 mg/dL (0.55-1.02); EST Glomerular Filtration Rate 50 mL/min (>60); Est Glom Filt Rate - Afr Amer 60 mL/min (>60); Estimated Creatinine Clearance 39.65 ml/min; Glucose 133 mg/dL (74-106); Potassium 3.4 mmol/L (3.5-5.1); Sodium Level 138 mmol/L (136-145)
[2022-05-22 13:38] LABS: Differential Comment SCANNED
[2022-05-22 14:47] VITALS: BP 100/81; PULSE 80; RESP 16; O2SAT 97
--- NOTE | 2022-05-22 16:20 | EX.ED.DYSGE1 ---
HPI History of Present Illness Chief Complaint: Abd Pain Detail of Chief Complaint: Abdominal pain, nausea and vomiting Informant: patient, family and other (Neurologist, Dr. Mark Chavez) Limited: dementia Onset/Context/Timing Onset: Weeks (3 weeks) Context: Sudden Onset Timing: Intermittent Quality: Nausea and vomiting Location: GI Current Severity: Unable to determine due to dementia Maximum Severity: Unable to determine due to dementia Worsened by: Nothing that family nor patient is able to tell me Relieved by: Nothing Associated Symptoms Associated Symptoms: Per HPI Narrative Narrative: Patient is a 76-year-old woman with history of coronary disease status post quadruple bypass, postoperative atrial fibrillation, essential hypertension, iron deficiency anemia and edema who was seen by her neurologist and sent in because of abdominal pain with nausea vomiting past 3 weeks. She was being assessed by him for recurrent episodes of unresponsiveness of uncertain etiology. Consideration was seizure versus dementia. She does have history of CVA which would increase likelihood of seizures. She also has a left homonymous hemianopsia due to prior stroke. Per his note she does have mild cognitive impairment. History is limited due to the fact that she has dementia. Family member had to supplement. She states this started yesterday. Family were stated to her symptoms are 3 weeks ago. Prior similar symptoms: No Recent Illness/Hospitalization: No PFSH PFSH Medical History Anxiety Anxiety and depression Atherosclerosis of coronary artery of [place] heart without angina pectoris Atherosclerotic heart disease of [place] coronary artery without angina pectoris Chronic cough Community acquired pneumonia Edema Essential (primary) hypertension Heme positive stool History of non-ST elevation myocardial infarction (NSTEMI) (01/02/21) HLD (hyperlipidemia) Iron deficiency anemia Osteoarthritis Pleural effusion, left Pleuritis PND (paroxysmal nocturnal dyspnea) Postoperative atrial fibrillation (11/06/20) Home Medications cholecalciferol (vitamin D3) 25 mcg (1,000 unit) capsule 25 mcg PO DAILY supplement 10/30/20 [History Last Taken 04/08/21] escitalopram oxalate 10 mg tablet 10 mg PO DAILY anxiety 01/02/21 [History Last Taken 04/08/21] pantoprazole 40 mg tablet,delayed release 40 mg PO DAILY gerd 01/02/21 [History Last Taken 04/08/21] atorvastatin 80 mg tablet 80 mg PO DAILY CHOLESTEROL 04/09/21 [History Last Taken 04/08/21] levothyroxine 25 mcg tablet 25 mcg PO DAILY THYROID 04/09/21 [History Last Taken 04/08/21] celecoxib 200 mg capsule (Celebrex) 200 mg PO DAILY PRN Pain 05/09/21 [History Last Taken Unknown] acetaminophen 500 mg capsule 1,000 mg PO Q6H PRN Pain, Moderate 05/14/21 [History Last Taken Unknown] furosemide 40 mg tablet 40 mg PO BID #180 tabs 06/09/21 [Rx Last Taken Unknown] aspirin 81 mg tablet,delayed release (Adult Aspirin Regimen) 81 mg PO DAILY 07/09/21 [History Last Taken Unknown] metoprolol succinate 50 mg tablet,extended release 24 hr 25 mg PO DAILY #30 tabs 07/10/21 [Rx Last Taken Unknown] clopidogrel 75 mg tablet 75 mg PO DAILY #90 tabs 09/04/21 [Rx Last Taken Unknown] benzonatate 100 mg capsule 100 mg PO TID PRN Cough 12/22/21 [History Last Taken Unknown] nortriptyline 25 mg capsule 25 mg PO BID 12/22/21 [History Last Taken Unknown] melatonin 10 mg PO/SL QHS 12/23/21 [History Last Taken Unknown] potassium chloride 10 mEq tablet,extended release 20 meq PO BID Pt needs 10 meq pills to swallow easier #120 tabs 01/07/22 [Rx Last Taken Unknown] Allergy/AdvReac Type Severity Reaction Status Date / Time iodine Allergy doesnt Verified 05/22/22 12:34 feel well lisinopril AdvReac Intermediate cough Verified 05/22/22 12:34 Family History Father No problems noted. Mother CHF (congestive heart failure) Surgical History H/O coronary artery bypass surgery (11/04/20) History of coronary artery stent placement (03/22/06) History of left heart catheterization (10/30/20) History of repair of retinal tear by laser photocoagulation Hx of appendectomy Social History household members: spouse housing: house Smoking Status: Never smoker alcohol intake: never substance use type: does not use caffeine: No ROS ROS ED Review of Systems ROS Unobtainable: due to mental status Constitutional Constitutional ED: Reports chills and fever(s) Eyes Eyes: Reports blurry vision and change in vision ENT ENT ED: Reports ear pain, rhinorrhea and sore throat Cardiovascular Cardiovascular: Reports chest pain and palpitations Respiratory/Chest Respiratory/Chest: Reports cough, dyspnea and dyspnea on exertion Gastrointestinal Gastrointestinal: Reports abdominal pain, diarrhea, nausea and vomiting Genitourinary Genitourinary ED: Denies dysuria, hematuria or urinary frequency Musculoskeletal Musculoskeletal: Denies arthralgias, back pain, myalgias or neck pain Neurologic Neurologic: Denies headache(s), paresthesias or weakness Endocrine Endocrinology: Denies cold intolerance or heat intolerance Hematologic/Lymphatic Hematologic/Lymphatic: Reports systems reviewed and no addt'l complaints, except as documented EXAM Physical Exam Const Vital Signs: 05/22/22 12:35 05/22/22 14:47 05/22/22 16:30 Temperature 96.4 F L Temperature Source Temporal Pulse Rate 93 80 Respiratory Rate 16 16 16 Blood Pressure 169/79 H 100/81 H Blood Pressure Mean 109 87 Pulse Ox 100 97 Oxygen Delivery Method Room Air Room Air 05/22/22 18:09 Temperature Temperature Source Pulse Rate 80 Respiratory Rate 18 Blood Pressure 161/68 H Blood Pressure Mean 99 Pulse Ox 100 Oxygen Delivery Method Room Air Positive well nourished and well developed; Negative for obese General Appearance ED: well developed and NAD; Negative for cyanotic, diaphoretic or pallor Nutritional Appearance: Negative for obese HEENT Reports moist mucous membranes Eyes PERRL and EOMs intact bilaterally General Eye ED: Negative for pale conjunctiva or scleral icterus Neck no lymphadenopathy, supple and no JVD Chest Wall inspection of chest normal and palpation of chest normal Resp normal respiratory effort and clear to auscultation bilaterally Cardio regular rate, regular rhythm, S1 normal heart sound and S2 normal heart sound; Negative for no murmurs GI no masses; Negative for hepatosplenomegaly Inspection: abdominal distention Auscultation: hypoactive bowel sounds Palpation: soft, tender other (Diffusely greater right upper quadrant left lower quadrant) and guarding LLQ; Negative for splenomegaly, mass or rebound tenderness present Narrative: There is no see KAYCEE tenderness. Back/Spine no CVA tenderness Cervical Spine: Negative for cervical spine tenderness Thoracic Spine / Upper Back: Negative for thoracic spinal tenderness Lumbar Spine / Lower Back: Negative for lumbar spinal tenderness Extremity normal to inspection General Extremety ED: Negative for edema or tenderness General Extremity: Negative for edema Neuro No oriented x3, CN's II-XII intact bilaterally and no sensory deficits noted Motor Exam: strength 5/5 throughout Psych mental status grossly normal Skin no rashes or lesions noted and no wounds General Skin Exam: Negative for jaundice or pallor MDM MDM MDM Narrative Medical decision making narrative: Intermittent nausea vomiting diarrhea need to evaluate for viral versus bacterial cause. Since patient has abdominal tenderness with guarding need to evaluate for intra-abdominal process if white count is elevated. We will obtain basic metabolic panel to assess renal function in the event a CT with IV contrast is needed. White count is elevated 13.4 thousand with mild shift. H&H is elevated. We will need to compare to prior. Of note BUN/creatinine ratio is less than 22 1, 17.7-1. Initial blood pressure was elevated. Repeat blood pressure is low at 100/81. Lab Data Labs: Laboratory Results - last 24 hr 05/22/22 05/22/22 13:00 13:00 WBC 13.4 H RBC 6.21 H Hgb 16.7 H Hct 52.1 H MCV 83.9 MCH 26.9 L MCHC 32.1 RDW Std Deviation 44.2 H RDW Coeff of Kitty 14.9 H Plt Count 494 H MPV 11.6 Immature Gran % (Auto) 1.200 H Neut % (Auto) 72.2 H Lymph % (Auto) 11.8 L [place] % (Auto) 11.5 H Eos % (Auto) 2.2 Baso % (Auto) 1.1 H Absolute Neuts (auto) 9.7 H Absolute Lymphs (auto) 1.59 Nucleated RBC % 0 Differential Comment SCANNED Diff Path Review May foll Sodium 138 Potassium 3.4 L Chloride 103 Carbon Dioxide 29.0 Anion Gap 6 BUN 20 H Creatinine 1.13 H Estim Creat Clear Calc 39.65 Est GFR (MDRD) Af Amer 60 Est GFR (MDRD) Non-Af 50 L BUN/Creatinine Ratio 17.7 Glucose 133 H Calcium 10.1 Radiography Diagnostic Testing: Clinical Impression(s) from Imaging Studies Abdomen/Pelvis CT 05/22/22 16:27 IMPRESSION: 1. Mild pericolonic stranding around the descending colon. Question infectious or inflammatory colitis. 2. Low attenuation in the pancreatic head concerning for organizing collection versus malignancy. Three-month follow-up is recommended. 3. Right hepatic hypodensity not consistent with a simple cyst. ACR White Paper guidelines (Herbrenden, et al. JACR 2018; 15(2):264-273) recommend CT without and with intravenous contrast. 4. Subacute pubic ramus fracture. Electronically Signed: Marycruz Oneill MD at 17:54 EST , Discharge Plan Triage Chief Complaint: Abd Pain Other Complaint: Alt LOC ED Provider: Jaren Miller Dx/Rx/DC Orders Clinical Impression: Colitis, Leukocytosis, Lesion of pancreas, Hepatic lesion, Fracture of pubic ramus Prescriptions: No Action celecoxib [Celebrex] 200 mg capsule 200 mg PO DAILY PRN (Reason: Pain) benzonatate 100 mg capsule 100 mg PO TID PRN (Reason: Cough) nortriptyline 25 mg capsule 25 mg PO BID cholecalciferol (vitamin D3) 25 mcg (1,000 unit) Capsule 25 mcg PO DAILY pantoprazole 40 mg tablet,delayed release (DR/EC) 40 mg PO DAILY Label Comments: TAKE 1 TABLET BY MOUTH ONCE DAILY IN THE MORNING escitalopram oxalate 10 mg tablet 10 mg PO DAILY Label Comments: TAKE 1 TABLET BY MOUTH ONCE DAILY IN THE MORNING acetaminophen 500 mg Capsule 1,000 mg PO Q6H PRN (Reason: Pain, Moderate) melatonin 10 mg capsule 10 mg PO/SL QHS atorvastatin 80 mg tablet 80 mg PO DAILY levothyroxine 25 mcg tablet 25 mcg PO DAILY furosemide 40 mg tablet 40 mg PO BID Qty: 180 3RF aspirin [Adult Aspirin Regimen] 81 mg tablet,delayed release (DR/EC) 81 mg PO DAILY metoprolol succinate 50 mg tablet extended release 24 hr 25 mg PO DAILY Qty: 30 11RF clopidogrel 75 mg tablet 75 mg PO DAILY Qty: 90 3RF potassium chloride 10 mEq tablet extended release 20 meq PO BID Qty: 120 11RF Primary Care Provider: Alisson Armenta Referrals: Alisson Armenta MD [Primary Care Provider] - Disposition Disposition: Acute Care Hospital [facility]
--- NOTE | 2022-05-22 16:27 | CT_ITS ---
EXAM: CT ABDOMEN AND PELVIS WITH INTRAVENOUS CONTRAST CLINICAL INDICATION: Guarding, elevated white count TECHNIQUE: Helically acquired images were obtained of the abdomen and pelvis with intravenous contrast. This CT exam was performed using one or more of the following dose reduction techniques: automated exposure control, adjustment of the mA and/or kV according to patient size, and/or use of iterative reconstruction technique. This report was created using [employer] report generation technology. CONTRAST: IV 100mL Isovue-300 COMPARISON: 12/29/2020. FINDINGS: LOWER THORAX: Unremarkable. Lung bases are clear. No cardiomegaly. No significant pericardial effusion. ABDOMEN: LIVER: Unremarkable. Homogeneous. No focal mass. GALLBLADDER AND BILE DUCTS: Unremarkable. No calcified gallstones. No gallbladder distention or wall edema. No intra- or extrahepatic biliary ductal dilation. PANCREAS: Subtle low attenuation in the head of the pancreas measuring approximately 1.4 x 1.3 cm, seen on series 2 image 33. No enhancing rim. No peripancreatic inflammatory stranding. No focal cystic or solid mass. SPLEEN: Unremarkable. Normal size without focal cystic or solid mass. ADRENALS: Unremarkable. No nodules. KIDNEYS AND URETERS: 1.2 cm low-attenuation lesion in the lower pole of the right kidney with CT density of 37 Hounsfield units. This is not consistent with a simple cyst. Additional subcentimeter hypodensities are too small to characterize. Right renal scarring is also noted. STOMACH AND BOWEL: Trace indistinctness and inflammatory pericolonic stranding of the descending colon. No bowel obstruction. PELVIS: APPENDIX: No evidence of acute appendicitis. BLADDER: Unremarkable. REPRODUCTIVE: Unremarkable as visualized. No mass. ABDOMEN and PELVIS: INTRAPERITONEAL SPACE: Unremarkable. No ascites or other fluid collection. No free air. BONES/JOINTS: Subacute fracture of the left pubic ramus with mild bridging callus. This is new compared to the prior study. No additional fracture. No suspicious lytic or blastic abnormality. SOFT TISSUES: Unremarkable. No discrete abdominal or pelvic wall hernia. VASCULATURE: Unremarkable. Abdominal aorta is normal in caliber. LYMPH NODES: Unremarkable. No enlarged lymph nodes. CT/Abdomen/Pelvis W IV Cont ONLY IMPRESSION: 1. Mild pericolonic stranding around the descending colon. Question infectious or inflammatory colitis. 2. Low attenuation in the pancreatic head concerning for organizing collection versus malignancy. Three-month follow-up is recommended. 3. Right hepatic hypodensity not consistent with a simple cyst. ACR White Paper guidelines (Herts, et al. JACR 2018; 15(2):264-273) recommend CT without and with intravenous contrast. 4. Subacute pubic ramus fracture. Electronically Signed: Marycruz Oneill MD at 17:54 EST Reading Location ID and State: [id number] / Tel , Service support ,
[2022-05-22 16:30] VITALS: RESP 16
[2022-05-22 18:09] VITALS: BP 161/68; PULSE 80; RESP 18; O2SAT 100
[2022-05-22 18:13] LABS: Bacteria 0 SEEN /hpf (None Seen); Mucous, Urine 0 SEEN /hpf (<or=2+); Red Blood Cells-Urine 0 SEEN /hpf (0-5)
[2022-05-22 18:16] LABS: Color, Urine Yellow (Yellow); Glucose, Dipstick Normal (Normal); Ketone-Dipstick Negative (Negative); Leukocyte Esterase-Dipstick 500 /ul (Negative); Nitrite-Dipstick Negative (Negative); Occult Blood-Urine 10 /ul (Negative); Protein-Dipstick 15 mg/dl (Negative); Urine Bilirubin Dipstick Negative (Negative); Urine Clarity Clear (Clear); Urine Urobilinogen Normal (Normal)
[2022-05-22 18:42] VITALS: BP 152/67; PULSE 77; RESP 16; TEMP 36.4; O2SAT 99
[2022-05-22 18:42] LABS: AST(SGOT) 29 U/L (15-37); Alanine Aminotransfer ALT/SGPT 27 U/L (13-56); Albumin, Serum 3.8 g/dL (3.2-5.0); Alkaline Phosphatase 151 U/L (45-117); Bilirubin, Direct 0.21 mg/dL (0.00-0.30); Lipase 279 U/L (73-393); Protein, Total 8.8 g/dL (6.4-8.2)
[2022-05-22 18:43] LABS: Squamous Epithelial Cells - UA 0-5 SEEN /hpf (5-10); White Blood Cells 0-5 SEEN /hpf (0-5)
[2022-05-22 19:06] VITALS: BMI 24.9
--- NOTE | 2022-05-22 19:22 | HP.PCM.HOS_ITS ---
HPI - General General Date of Admission: 05/22/22 HPI Narrative LAVELLE RUEDA, is a 76 F who presents to the hospital from her neurologist office secondary to abdominal pain. She is afebrile but does have a slight leukocytosis. She does have a history of dementia but states that the abdominal pain started over the last 24 to 48 hours. She has noticed that she has been having some episodes of vomiting as well as intermittent diarrhea for the last 3 weeks with an unknown source. She is also been having a cough which is documented as chronic. Per the brother she was just to see her PCP last week possibly for the cough and at that time was started on an antibiotic but they do not know what the name is. The diarrhea preceded the antibiotic. In the ER she was found to have a descending colitis on the CT scan, they also commented on the low-attenuation area in the pancreatic head that could be due to inflammation versus a mass. The recommendation was to repeat a CT scan in 3 months, she does not have any abdominal pain in the epigastric region all of it is on her left side. She was at her neurologist office today secondary to the possibility of a seizure though this is not confirmed, the report is is that earlier in the week she had a staring spell that took her a few minutes to snap out of but there is no tonic-clonic activity or any other signs of seizure and i t does not appear that she is on any antiseizure medications. [facility] Medical History Anxiety Anxiety and depression Atherosclerosis of coronary artery of [place] heart without angina pectoris Atherosclerotic heart disease of [place] coronary artery without angina pectoris Chronic cough Community acquired pneumonia Edema Essential (primary) hypertension Heme positive stool History of non-ST elevation myocardial infarction (NSTEMI) (01/02/21) HLD (hyperlipidemia) Iron deficiency anemia Osteoarthritis Pleural effusion, left Pleuritis PND (paroxysmal nocturnal dyspnea) Postoperative atrial fibrillation (11/06/20) Home Medications cholecalciferol (vitamin D3) 25 mcg (1,000 unit) capsule 25 mcg PO DAILY supplement 10/30/20 [History Last Taken 04/08/21] escitalopram oxalate 10 mg tablet 10 mg PO DAILY anxiety 01/02/21 [History Last Taken 04/08/21] pantoprazole 40 mg tablet,delayed release 40 mg PO DAILY gerd 01/02/21 [History Last Taken 04/08/21] atorvastatin 80 mg tablet 80 mg PO DAILY CHOLESTEROL 04/09/21 [History Last Taken 04/08/21] levothyroxine 25 mcg tablet 25 mcg PO DAILY THYROID 04/09/21 [History Last Taken 04/08/21] celecoxib 200 mg capsule (Celebrex) 200 mg PO DAILY PRN Pain 05/09/21 [History Last Taken Unknown] acetaminophen 500 mg capsule 1,000 mg PO Q6H PRN Pain, Moderate 05/14/21 [History Last Taken Unknown] furosemide 40 mg tablet 40 mg PO BID #180 tabs 06/09/21 [Rx Last Taken Unknown] aspirin 81 mg tablet,delayed release (Adult Aspirin Regimen) 81 mg PO DAILY 07/09/21 [History Last Taken Unknown] metoprolol succinate 50 mg tablet,extended release 24 hr 25 mg PO DAILY #30 tabs 07/10/21 [Rx Last Taken Unknown] clopidogrel 75 mg tablet 75 mg PO DAILY #90 tabs 09/04/21 [Rx Last Taken Unknown] benzonatate 100 mg capsule 100 mg PO TID PRN Cough 12/22/21 [History Last Taken Unknown] nortriptyline 25 mg capsule 25 mg PO BID 12/22/21 [History Last Taken Unknown] melatonin 10 mg PO/SL QHS 12/23/21 [History Last Taken Unknown] potassium chloride 10 mEq tablet,extended release 20 meq PO BID Pt needs 10 meq pills to swallow easier #120 tabs 01/07/22 [Rx Last Taken Unknown] Allergy/AdvReac Type Severity Reaction Status Date / Time iodine Allergy doesnt Verified 05/22/22 12:34 feel well lisinopril AdvReac Intermediate cough Verified 05/22/22 12:34 Family History Father No problems noted. Mother CHF (congestive heart failure) Surgical History H/O coronary artery bypass surgery (11/04/20) History of coronary artery stent placement (03/22/06) History of left heart catheterization (10/30/20) History of repair of retinal tear by laser photocoagulation Hx of appendectomy Social History household members: spouse housing: house Smoking Status: Never smoker alcohol intake: never substance use type: does not use caffeine: No ROS Constitutional Constitutional: Denies chills, fatigue, fever(s) or malaise Eyes Eyes: Denies blurry vision ENT HEENT: Denies headache(s) or nasal discharge Cardiovascular Cardiovascular: Denies chest pain, dyspnea on exertion or syncope Respiratory/Chest Respiratory/Chest: Denies cough, shortness of breath at rest or shortness of breath with exertion Gastrointestinal Gastrointestinal: Reports abdominal pain, diarrhea and vomiting; Denies constipation or nausea Genitourinary Genitourinary: Denies dysuria Neurologic Neurologic: Denies focal weakness, numbness or tremor(s) Psychiatric Psychiatric: Denies anxiety or depression Vital Signs Vital Signs Vital Signs: 05/22/22 12:35 05/22/22 14:47 05/22/22 16:30 Temperature 96.4 F L Temperature Source Temporal Pulse Rate 93 80 Respiratory Rate 16 16 16 Blood Pressure 169/79 H 100/81 H Blood Pressure Mean 109 87 Pulse Ox 100 97 Oxygen Delivery Method Room Air Room Air 05/22/22 18:09 05/22/22 18:42 Temperature 97.6 F L Temperature Source Temporal Pulse Rate 80 77 Respiratory Rate 18 16 Blood Pressure 161/68 H 152/67 H Blood Pressure Mean 99 95 Pulse Ox 100 99 Oxygen Delivery Method Room Air Room Air Weight Weight: 152 lb 14.4 oz Body Mass Index (BMI) 24.7 Physical Exam Narrative General: Alert, Oriented x3, Cooperative, No apparent distress HEENT: Atraumatic, PERRLA, EOMI, Normocephalic Oral: Moist Mucosa Neck: Supple, No JVD Lungs: Clear to auscultation, Normal air movement, No rhonchi, No wheeze, No rales Cardiovascular: Regular rate, Regular Rhythm, Normal S1, Normal S2, No murmurs Abdomen: Soft, mild tenderness to palpation in her left lower quadrant, Non- Distended, No Hepato-splenomegaly Extremities: No edema, Capillary Refill Less than 3 Seconds Skin: No rashes, No breakdown Musculoskeletal: No Tenderness to Palpation of Joints or Extremities Neurological: Cranial nerves II-XII grossly intact, Motor Exam 5/5 strength throughout, Sensory exam intact to light touch and pain Psych/Mental Status: Normal Affect, Appropriate Results Lab / Micro Data Result Diagrams: 05/22/22 13:00 05/22/22 13:00 Labs: Laboratory Results - last 24 hr 05/22/22 13:00: WBC 13.4 H, RBC 6.21 H, Hgb 16.7 H, Hct 52.1 H, MCV 83.9, MCH 2 6.9 L, MCHC 32.1, RDW Std Deviation 44.2 H, RDW Coeff of Kitty 14.9 H, Plt Count 494 H, MPV 11.6, Immature Gran % (Auto) 1.200 H, Neut % (Auto) 72.2 H, Lymph % (Auto) 11.8 L, [place] % (Auto) 11.5 H, Eos % (Auto) 2.2, Baso % (Auto) 1.1 H, Absolute Neuts (auto) 9.7 H, Absolute Lymphs (auto) 1.59, Nucleated RBC % 0, Differential Comment SCANNED, Diff Path Review September05/22/22 13:00: Sodium 138, Potassium 3.4 L, Chloride 103, Carbon Dioxide 29.0, Anion Gap 6, BUN 20 H, Creatinine 1.13 H, Estim Creat Clear Calc 39.65, Est GFR (MDRD) Af Amer 60, Est GFR (MDRD) Non-Af 50 L, BUN/Creatinine Ratio 17.7, Glucose 133 H, Calcium 10.1 05/22/22 13:00: Total Bilirubin 1.00, Direct Bilirubin 0.21, AST 29, ALT 27, Alk [place]chel Phosphatase 151 H, Total Protein 8.8 H, Albumin 3.8, Globulin 5.0 H, Lipase 279 05/22/22 18:05: Urine Color Yellow, Urine Clarity Clear, Urine pH 7.0, Ur Specific [place] 1.010, Urine Protein 15 H, Urine Glucose (UA) Normal, Urine Ketones Negative, Urine Occult Blood 10 H, Urine Nitrite Negative, Urine Bilirubin Negative, Urine Urobilinogen Normal, Ur Leukocyte Esterase 500 H, Urine RBC 0 SEEN, Urine WBC 0-5 SEEN, Ur Squamous Epith Cells 0-5 SEEN, Urine Bacteria 0 SEEN, Urine Mucus 0 SEEN Radiology Impression Abdomen/Pelvis CT 05/22/22 16:27 IMPRESSION: 1. Mild pericolonic stranding around the descending colon. Question infectious or inflammatory colitis. 2. Low attenuation in the pancreatic head concerning for organizing collection versus malignancy. Three-month follow-up is recommended. 3. Right hepatic hypodensity not consistent with a simple cyst. ACR White Paper guidelines (Herbrenden, et al. JACR 2018; 15(2):264-273) recommend CT without and with intravenous contrast. 4. Subacute pubic ramus fracture. Electronically Signed: Marycruz Oneill MD at 17:54 EST Reading Location ID and State: [id number] / Tel , Service support , Assessment & Plan Assessment/Plan (1) Colitis: PLAN: Plan 1. Descending colitis ? We will start her on Cipro and Flagyl ? This does appear to be fairly mild so we will let her eat ? She is on Lasix secondary to cardiac disease so we will put her on cautious IV fluids ? Low-attenuation of a pancreatic head lesion lipase is normal would recommend outpatient follow-up with a repeat CT scan in 3 months ? Her creatinine is a little bit elevated but not enough to meet JAISON criteria, repeat lab work in the morning and monitor 2. CAD status post CABG and stent/HTN/HLD ? Her blood pressures are stable, can resume her home blood pressure medications ? Continue with her home Lipitor ? We will hold her Lasix secondary to IV fluids ? Continue with aspirin and Plavix 3. Hypothyroidism ? Stable ? Continue with Synthroid 4. Dementia/anxiety/depression ? Can resume her home mental health medications ? Her dementia is mild 5. GERD ? Stable ? Continue with PPI DVT: Ambulation Charges/Coding Visit Charges OBSV E&M: 02298 Initial observation care L2
[2022-05-22 20:12] VITALS: BP 149/70; PULSE 75; RESP 18; TEMP 36.4; O2SAT 95
[2022-05-22] MEDS: 0.9% Normal Saline 1,000 ML 75 ML IV (20:39)
[2022-05-22] MEDS: Ciprofloxacin 400 MG/200 ML BAG 200 MG IV (21:48)
[2022-05-22] MEDS: Atorvastatin Calcium 80 MG Tablet PO (21:49)
[2022-05-22] MEDS: Nortriptyline 25 MG Capsule PO (21:49)
[2022-05-22] MEDS: metroNIDAZOLE 500 MG/100 ML BAG 100 MG IV (23:22)
[2022-05-23] VITALS (7 sets, daily range): BP systolic 129–159; BP diastolic 57–74; PULSE 72–79; RESP 14–18; TEMP 36.4–36.8; O2SAT 95–98
[2022-05-23 06:37] LABS: Absolute Lymphocyte Count 1.55 X10^3/uL (0.83-4.51); Absolute Neutrophil Count 7.4 X10^3/uL (2.0-7.7); Basophil# 0.07 X10^3/uL; Basophil% 0.7 % (0-1); Eosinophil# 0.25 X10^3/uL; Eosinophils% 2.3 % (0-5); Hematocrit 41.2 % (37-47); Hemoglobin 13.3 g/dL (12.0-15.0); Lymphocyte # 1.55 X10^3/ul (0.83-4.51); Lymphocyte % 14.6 % (19-41); Mean Corp Hgb Conc 32.3 g/dL (32-36); Mean Corpuscular Hgb 27.2 pg (27.0-32.0); Mean Corpuscular Volume 84.3 fL (81-99); Mean Platelet Vol. 11.5 fl (6.2-12.0); Monocyte% 12.2 % (0-10); NRBC Flagged by Analyzer 0 % (0-5); Neutrophil % 69.4 % (47-70); Platelet Count 318 K/mm3 (150-450); RBC Distribution Width CV 14.7 % (11.6-14.6); RBC Distribution Width SD 45.1 fl (35.1-43.9); Red Blood Count 4.89 M/mm3 (4.2-5.4); White Blood Count 10.7 K/mm3 (4.4-11.0)
[2022-05-23] MEDS: Levothyroxine 25 MCG TABLET PO (06:38)
[2022-05-23] MEDS: metroNIDAZOLE 500 MG/100 ML BAG 100 MG IV ×2 (06:38→13:30)
[2022-05-23 07:06] LABS: Anion Gap 3 (5-15); BUN 16 mg/dL (7-18); BUN/Creat Ratio 23.4 RATIO (10-20); Calcium,Total 8.2 mg/dL (8.5-10.1); Chloride 107 mmol/L (98-107); Creatinine, Serum 0.68 mg/dL (0.55-1.02); EST Glomerular Filtration Rate 89 mL/min (>60); Est Glom Filt Rate - Afr Amer 107 mL/min (>60); Glucose 112 mg/dL (74-106); Potassium 2.9 mmol/L (3.5-5.1); Sodium Level 138 mmol/L (136-145)
[2022-05-23] MEDS: Nortriptyline 25 MG Capsule PO ×2 (08:29→22:25)
[2022-05-23] MEDS: Potassium Chloride Oral Tablet 20 MEQ 60 MEQ PO (08:29)
[2022-05-23] MEDS: Pantoprazole Sodium 40 MG Tablet PO (08:30)
[2022-05-23] MEDS: Escitalopram Oxalate 10 MG Tablet PO (08:30)
[2022-05-23] MEDS: Metoprolol(XL)Succ 25 MG Tablet PO (08:30)
[2022-05-23] MEDS: Clopidogrel Bisulfate 75 MG Tablet PO (08:30)
[2022-05-23] MEDS: Ciprofloxacin 400 MG/200 ML BAG 200 MG IV ×2 (10:30→22:17)
[2022-05-23 12:44] LABS: Potassium 3.5 mmol/L (3.5-5.1)
[2022-05-23] MEDS: 0.9% Saline Lock 10 ML Syringe IV ×2 (13:30→22:25)
[2022-05-23] MEDS: Ondansetron 4 MG/2 ML Vial IV (13:30)
[2022-05-23] MEDS: 0.9% Normal Saline 1,000 ML 75 ML IV (13:37)
--- NOTE | 2022-05-23 16:05 | CASEMGMT ---
SOFIA LAKE NOTE: SOFIA LAKE to room to discuss discharge planning. Therapy notes reviewed. Pt resting in bed, awake/alert. Pt w/hx of dementia and had difficulty recalling some information. She was able to state a nurse, Stefanie Cespedes, comes to her home a couple days a week and helps w/setting up her medications. She also states an aide comes during the week to assist w/bathing and home tasks, but unable to state what agency. She stated she does not know why might be able to answer these questions and stated she does not know if her brother would know the information or not. She has a male friend, Kyle, who visits daily, and thinks he would be but be able to provide further inof, but she does not know his # to call him. She gave permission for SOFIA LAKE to call her brother, Adolph, and states he is her HCPOA. She states he manages her finances. Call placed to pt's brother, Adolph, to discuss above info and discharge planning. Adolph states pt is active w/[facility] and her nurse is Stefanie Cespedes. He verifies pt has home health private duty aides M-F and they are from [place]. He confirms her friend, Kyle, visits pt often, but pt is home alone a lot. He reports that pt was just recently diagnosed w/vascular and Alzheimer's-type dementia and that they are seeing a progression toward more memory issues and less self care. He states he does not feel pt is safe to discharge back home once she is ready to leave the hospital and would like her to go to a jail. He states just this past week they have been looking into pt going to a jail or [facility] and they have been interviewing different locations to try and find the best place for pt to go to. Dr Chandler made aware and states pt had informed her of this as well. óMnica POSADA, also made aware. Andriy YA RN, CM
--- NOTE | 2022-05-23 16:05 | CASEMGMT ---
SOFIA LAKE NOTE: GERARDO form explained to pt's brother/Adolph WALLER re: Observation status for treatment of infectious colitis. ? Explained hospitalization will be paid per?her insurance policy for Outpatient billing?and condition will continue to be evaluated for Inpt necessity. Also let brother know that [facility] sends paper in the billing packet with their phone number if questions arise. Discussed Pharmacy section of GERARDO form and self administered medication guideline.? Brother verbalizes understanding and does not have further questions. ?Form signed by this SOFIA LAKE and Monica BLACK, via telephone signature, copy made and placed in chart, and original placed in pt's room. Brother made aware papers will be in pt's room. Andriy YA RN, CM
--- NOTE | 2022-05-23 17:30 | PCM.PN.HOSP ---
Subjective Subjective Patient indicated she was feeling better with at least a 50% reduction in her abdominal pain and would like to go home. She was seen by physical and Occupational Therapy and they felt she was safe enough from that standpoint for discharge home. Unfortunately, she developed some nausea and vomiting both before lunch and after lunch which will be prohibitive to discharge at this time. We have added as needed antiemetics and the seem to help. Will reevaluate tomorrow to see how she is feeling Nursing notified me after I seen her that her son came in and indicated she was recently diagnosed with vascular/Alzheimer's dementia and has some mild cognitive impairment and they did not feel that it was safe for her to go home. They were looking at getting her place. I do not think she will qualify for skilled placement with how well she did in therapy services however I did discuss with the senior case manager that long-term care may be an option and they will investigate this if skilled is not a possibility for her. This will delay her discharge and she would likely not leave the hospital until early next week at the earliest. Objective Data Objective Data Vital Signs: Vital Signs Temp Pulse Resp BP Pulse Ox O2 Del Method 97.9 F 73 18 135/60 H 97 Room Air 05/23/22 14:23 05/23/22 14:23 05/23/22 14:23 05/23/22 14:23 05/23/22 14:23 05/23/22 15:00 Oxygen Delivery Method Room Air Weight: 70 kg Body Mass Index (BMI) 24.9 Intake & Output: Intake and Output for Last 24 Hours 05/21/22 05/22/22 05/23/22 23:59 23:59 23:59 Intake Total 300 / 500 1700 / 1700 Balance 300 / 500 1700 / 1700 Lab / Micro Data Result Diagrams: 05/23/22 06:10 05/23/22 11:57 Labs: Laboratory Results - last 24 hr 05/22/22 13:00: Total Bilirubin 1.00, Direct Bilirubin 0.21, AST 29, ALT 27, Alkaline Phosphatase 151 H, Total Protein 8.8 H, Albumin 3.8, Globulin 5.0 H, Lipase 279 05/22/22 18:05: Urine Color Yellow, Urine Clarity Clear, Urine pH 7.0, Ur Specific [place] 1.010, Urine Protein 15 H, Urine Glucose (UA) Normal, Urine Ketones Negative, Urine Occult Blood 10 H, Urine Nitrite Negative, Urine Bilirubin Negative, Urine Urobilinogen Normal, Ur Leukocyte Esterase 500 H, Urine RBC 0 SEEN, Urine WBC 0-5 SEEN, Ur Squamous Epith Cells 0-5 SEEN, Urine Bacteria 0 SEEN, Urine Mucus 0 SEEN 05/23/22 06:10: WBC 10.7, RBC 4.89, Hgb 13.3, Hct 41.2, MCV 84.3, MCH 27.2, MCHC 32.3, RDW Std Deviation 45.1 H, RDW Coeff of Kitty 14.7 H, Plt Count 318, MPV 11.5, Immature Gran % (Auto) 0.800, Neut % (Auto) 69.4, Lymph % (Auto) 14.6 L, [place] % (Auto) 12.2 H, Eos % (Auto) 2.3, Baso % (Auto) 0.7, Absolute Neuts (auto) 7.4, Absolute Lymphs (auto) 1.55, Nucleated RBC % 0 05/23/22 06:10: Sodium 138, Potassium 2.9 L, Chloride 107, Carbon Dioxide 28.0, Anion Gap 3 L, BUN 16, Creatinine 0.68, Estim Creat Clear Calc 44.80, Est GFR (MDRD) Af Amer 107, Est GFR (MDRD) Non-Af 89, BUN/Creatinine Ratio 23.4 H, Glucose 112 H, Calcium 8.2 L 05/23/22 11:57: Potassium 3.5 Radiography Diagnostic Testing: Radiology Impression Abdomen/Pelvis CT 05/22/22 16:27 IMPRESSION: 1. Mild pericolonic stranding around the descending colon. Question infectious or inflammatory colitis. 2. Low attenuation in the pancreatic head concerning for organizing collection versus malignancy. Three-month follow-up is recommended. 3. Right hepatic hypodensity not consistent with a simple cyst. ACR White Paper guidelines (Herts, et al. JACR 2018; 15(2):264-273) recommend CT without and with intravenous contrast. 4. Subacute pubic ramus fracture. Electronically Signed: Marycruz Oneill MD at 17:54 EST Reading Location ID and State: [place] / Tel , Service support , Physical Exam Const alert, oriented x3, no apparent distress, average body habitus and well nourished Constitutional Narrative: Older white female sitting up in bed, has just finished her breakfast, appears comfortable nontoxic, watching television HEENT head/scalp atraumatic HEENT Narrative: Mallampati is 2, no thrush Head and Scalp: normocephalic Resp normal respiratory effort, no retractions and no use of accessory muscles Auscultation: Negative for crackles, rhonchi or wheezes Cardio regular rate, regular rhythm, S1 normal heart sound, S2 normal heart sound, no murmurs, no rub, no gallops and no clicks GI normal to inspection, nondistended, normoactive bowel sounds and soft to palpation GI Narrative: Mild diffuse tenderness more on the left side of the abdomen no significant guarding Extremity no clubbing, cyanosis or edema Extremity Narrative: 2+ pedal pulses Neuro oriented x3, moves all extremities and no focal motor deficits Speech: speech normal Psych affect normal Psych Narrative: Very pleasant Assessment & Plan Assessment/Plan (1) Hypokalemia: (2) Colitis: (3) Leukocytosis: (4) Lesion of pancreas: (5) Hepatic lesion: (6) Fracture of pubic ramus: (7) Nausea & vomiting: PLAN: Plan Descending colitis -Unclear if it is or ischemic related or infectious -Continue Cipro Flagy -Had a leukocytosis on presentation however she did also appear hemoconcentrated but now leukocytosis resolved -Continue p.o. diet as able -As needed antiemetics -Seems to be clinically improving with regards to this Nausea/vomiting -2 episodes today -Unclear if this is related to antibiotics or something else -Continue antiemetics -Reevaluate tomorrow Hypokalemia -Potassium replaced -Potassium normalized -Repeat lab in a.m. Serum creatinine elevation -Patient appeared mildly dehydrated but not in JAISON on presentation -Serum creatinine is now at baseline -We will discontinue IV fluids Abnormal CT of the abdomen/pelvis -Patient with lesions in the liver and the pancreas -With regards to the pancreas it was recommended a 3-month follow-up however an IV contrasted CT of the abdomen was recommended for the liver abnormalities therefore we will order this -Check CA 19-9 CAD/HTN/HPL/postoperative atrial fibrillation -History of bypass 11/04/2020 -Patient with no recent atrial fibrillation -Continue home aspirin -Continue home atorvastatin -Can Plavix -Restart home Lasix -Home will GERD -Continue home Protonix Hypothyroidism -Continue home Mild cognitive impairment/vascular dementia/Alzheimer's type dementia -Per son she was recently diagnosed with both vascular and Alzheimer's type dementia -Continue home Aricept -Son feels she is no longer safe to go home -Would like to obtain placement at discharge however I do not feel that she will qualify for skilled facility and may need to do ECF route -Discussed with senior case manager and they will need to do more work on Wednesday or Wednesday of next week on this Anxiety/depression -Continue home nortriptyline -Continue home escitalopram DVT prophylaxis -Start Lovenox daily CODE STATUS -full code Charges/Coding Visit Charges OBSV E&M: 88832 Subsequent observation care L3
--- NOTE | 2022-05-23 17:39 | CT_ITS ---
INDICATION: liver mass/pancreatic mass EXAMINATION: CT ABDOMEN WITH AND WITHOUT CONTRAST TECHNIQUE: Helically acquired images were obtained of the abdomen both before and after IV contrast. A radiation dose optimization technique was used for this scan. IV Contrast dosage and agent: Oral contrast: None. COMPARISON: CT abdomen and pelvis 05/22/2022, and report. FINDINGS: LOWER CHEST: Unremarkable. LIVER: Liver mass. GALLBLADDER/BILE DUCTS: Unremarkable. PANCREAS: Subtle area of decreased attenuation again noted in the pancreatic head as on the prior CT. No discrete mass identified. No adjacent inflammatory changes.. SPLEEN: Unremarkable. ADRENAL GLANDS: Unremarkable. KIDNEYS / URETERS: There are 3 small low attenuation structures in the right kidney, largest at the lower pole is 1 cm, measure greater than water attenuation. Density is difficult to adequately assess given subtle degree of motion on all series. There is also a tiny hyperdense structure in the right kidney interpolar which may be a hyperdense cyst. A few tiny cortical hypodensities in the left kidney may be tiny cysts and are not completely characterized. There is focal parenchymal thinning in the right kidney likely scarring. No hydronephrosis. BOWEL / MESENTERY: Unremarkable. No bowel obstruction. PERITONEUM: No free air. No free fluid. VESSELS: Abdominal aorta is normal caliber. RETROPERITONEUM: Unremarkable. ABDOMINAL WALL: Unremarkable. BONES: No acute abnormality. OTHER: None. CT/Abdomen W/WO IV Contrast IMPRESSION: 1. Right renal lesions 3 small hypodense lesions, largest 1 cm, not corresponding with simple cysts, although difficult to characterize due to small size and component of motion. Given the small size, renal ultrasound may be helpful to assess for cyst, or MRI. 2. Ill-defined hypodensity in the pancreatic head again noted with no well-defined mass. Follow-up CT abdomen and pelvis pancreas protocol in 3 months. 3. No hepatic mass identified. Electronically Signed: Ana Lacey MD at 20:25 EST ,
[2022-05-23] MEDS: Furosemide 40 MG Tablet PO (18:32)
[2022-05-23] MEDS: MELATONIN 10 MG TABLET PO (22:25)
[2022-05-23] MEDS: Atorvastatin Calcium 80 MG Tablet PO (22:25)
[2022-05-23] MEDS: Donepezil HCl 5 MG Tablet PO (22:25)
[2022-05-23] MEDS: Potassium Chloride Oral Tablet 20 MEQ PO (22:25)
[2022-05-24] MEDS: metroNIDAZOLE 500 MG/100 ML BAG 100 MG IV ×4 (01:00→21:31)
[2022-05-24] MEDS: 0.9% Saline Lock 10 ML Syringe IV ×2 (01:01→05:55)
[2022-05-24] MEDS: Benzonatate 100 MG Capsule PO (02:30)
[2022-05-24 02:34] VITALS: BP 133/46; PULSE 64; RESP 14; TEMP 36.4; O2SAT 93
[2022-05-24] MEDS: Levothyroxine 25 MCG TABLET PO (05:55)
[2022-05-24 07:35] LABS: Absolute Neutrophil Count 5.2 X10^3/uL (2.0-7.7); Basophil# 0.08 X10^3/uL; Eosinophil# 0.26 X10^3/uL; Eosinophils% 3.4 % (0-5); Hematocrit 39.1 % (37-47); Hemoglobin 11.9 g/dL (12.0-15.0); Lymphocyte % 15.6 % (19-41); Mean Corp Hgb Conc 30.4 g/dL (32-36); Mean Corpuscular Hgb 26.5 pg (27.0-32.0); Mean Corpuscular Volume 87.1 fL (81-99); Mean Platelet Vol. 11.8 fl (6.2-12.0); Monocyte# 0.94 X10^3/uL; Monocyte% 12.2 % (0-10); NRBC Flagged by Analyzer 0 % (0-5); Neutrophil % 67.4 % (47-70); Platelet Count 256 K/mm3 (150-450); RBC Distribution Width CV 14.8 % (11.6-14.6); RBC Distribution Width SD 47.5 fl (35.1-43.9); Red Blood Count 4.49 M/mm3 (4.2-5.4); White Blood Count 7.7 K/mm3 (4.4-11.0)
[2022-05-24 07:38] LABS: Anion Gap 6 (5-15); BUN 8 mg/dL (7-18); BUN/Creat Ratio 13.1 RATIO (10-20); Calcium,Total 8.1 mg/dL (8.5-10.1); Chloride 107 mmol/L (98-107); Creatinine, Serum 0.61 mg/dL (0.55-1.02); EST Glomerular Filtration Rate 101 mL/min (>60); Est Glom Filt Rate - Afr Amer 122 mL/min (>60); Glucose 114 mg/dL (74-106); Potassium 3.2 mmol/L (3.5-5.1); Sodium Level 138 mmol/L (136-145)
[2022-05-24 08:00] VITALS: BP 136/66; PULSE 69; RESP 16; TEMP 36.6; O2SAT 94
[2022-05-24 09:11] VITALS: PULSE 69
[2022-05-24] MEDS: Clopidogrel Bisulfate 75 MG Tablet PO (09:11)
[2022-05-24] MEDS: Potassium Chloride Oral Tablet 20 MEQ 40 MEQ PO (09:11)
[2022-05-24] MEDS: Metoprolol(XL)Succ 25 MG Tablet PO (09:11)
[2022-05-24] MEDS: Furosemide 40 MG Tablet PO ×2 (09:11→16:58)
[2022-05-24] MEDS: Pantoprazole Sodium 40 MG Tablet PO (09:11)
[2022-05-24] MEDS: Aspirin E.C. 81 MG Tablet PO (09:11)
[2022-05-24] MEDS: Escitalopram Oxalate 10 MG Tablet PO (09:11)
[2022-05-24] MEDS: Nortriptyline 25 MG Capsule PO ×2 (09:12→21:23)
[2022-05-24] MEDS: Potassium Chloride Oral Tablet 20 MEQ PO ×2 (09:12→21:23)
[2022-05-24] MEDS: Ciprofloxacin 400 MG/200 ML BAG 200 MG IV ×2 (09:18→22:41)
[2022-05-24 14:00] VITALS: BP 114/57; PULSE 62; RESP 15; TEMP 36.5; O2SAT 97
--- NOTE | 2022-05-24 14:59 | PCM.PN.HOSP ---
Subjective Subjective No further nausea or vomiting since yesterday afternoon. Patient was upset because she had had an bowel movement in the bed and did not get cleaned up as quickly as she thought she should. She was more embarrassed than anything. I discussed with her that these things happen and it may be related to the antibiotics. We will continue to monitor at the CV comes more frequent and something we need to assess for infectious colitis with C. difficile assessment. I did discuss with her the concerns her brother had with her help going home and she voiced agreement and is agreeable to be placed at discharge. Objective Data Objective Data Vital Signs: Vital Signs Temp Pulse Resp BP Pulse Ox O2 Del Method 97.8 F 69 16 136/66 H 94 Room Air 05/24/22 08:00 05/24/22 09:11 05/24/22 08:00 05/24/22 08:00 05/24/22 08:00 05/24/22 08:00 Oxygen Delivery Method Room Air Weight: 70 kg Body Mass Index (BMI) 24.9 Intake & Output: Intake and Output for Last 24 Hours 05/22/22 05/23/22 05/24/22 23:59 23:59 23:59 Intake Total 300 / 500 2203.75 / 2203.75 400 / 400 Output Total 300 / 300 Balance 300 / 500 2203.75 / 2203.75 100 / 100 Lab / Micro Data Result Diagrams: 05/24/22 06:52 05/24/22 06:52 Labs: Laboratory Results - last 24 hr 05/24/22 06:52: WBC 7.7, RBC 4.49, Hgb 11.9 L, Hct 39.1, MCV 87.1, MCH 26.5 L, MCHC 30.4 L D, RDW Std Deviation 47.5 H, RDW Coeff of Kitty 14.8 H, Plt Count 256, MPV 11.8, Immature Gran % (Auto) 0.400, Neut % (Auto) 67.4, Lymph % (Auto) 15.6 L, [place] % (Auto) 12.2 H, Eos % (Auto) 3.4, Baso % (Auto) 1.0, Absolute Neuts (auto) 5.2, Absolute Lymphs (auto) 1.20, Nucleated RBC % 0 05/24/22 06:52: Sodium 138, Potassium 3.2 L, Chloride 107, Carbon Dioxide 25.0, Anion Gap 6, BUN 8, Creatinine 0.61, Estim Creat Clear Calc 44.80, Est GFR (MDRD) Af Amer 122, Est GFR (MDRD) Non-Af 101, BUN/Creatinine Ratio 13.1, Glucose 114 H, Calcium 8.1 L Radiography Diagnostic Testing: Radiology Impression Abdomen CT 05/23/22 17:39 IMPRESSION: 1. Right renal lesions 3 small hypodense lesions, largest 1 cm, not corresponding with simple cysts, although difficult to characterize due to small size and component of motion. Given the small size, renal ultrasound may be helpful to assess for cyst, or MRI. 2. Ill-defined hypodensity in the pancreatic head again noted with no well-defined mass. Follow-up CT abdomen and pelvis pancreas protocol in 3 months. 3. No hepatic mass identified. Electronically Signed: Ana Lacey MD at 20:25 EST , Physical Exam Const alert, oriented x3, no apparent distress, average body habitus and well nourished Constitutional Narrative: Older white female sitting up in bed, watching television, appears comfortable nontoxic HEENT head/scalp atraumatic and moist oral mucous membranes Head and Scalp: normocephalic Resp normal respiratory effort, no retractions and no use of accessory muscles Auscultation: Negative for crackles, rhonchi or wheezes Cardio regular rate, regular rhythm, S1 normal heart sound, S2 normal heart sound, no murmurs, no rub, no gallops and no clicks GI normal to inspection, nondistended, normoactive bowel sounds, soft to palpation and non-tender GI Narrative: All tenderness has resolved Extremity no clubbing, cyanosis or edema Extremity Narrative: 2+ pedal pulses Neuro oriented x3, moves all extremities and no focal motor deficits Speech: speech normal Psych affect normal Psych Narrative: Very pleasant Assessment & Plan Assessment/Plan (1) Hypokalemia: (2) Colitis: (3) Leukocytosis: (4) Lesion of pancreas: (5) Hepatic lesion: (6) Fracture of pubic ramus: (7) Nausea & vomiting: PLAN: Plan Descending colitis -Unclear if it is or ischemic related or infectious -Continue Cipro and Flagyl for total of 5 to 7 days (day 2) -Leukocytosis resolved -Continue p.o. diet as able -As needed antiemetics -Seems to be clinically improving with regards to this Nausea/vomiting - no episodes since yesterday afternoon -Unclear if this is related to antibiotics or something else -Continue antiemetics -Continue to monitor Hypokalemia -Better but not normalized -3.2 this morning up from 2.9 -We will repeat oral potassium -Repeat in a.m. Serum creatinine elevation -Secondary to dehydration -Resolved -And remains normal despite initiation of home Lasix dosing Abnormal CT of the abdomen/pelvis -Patient with lesions in the liver and the pancreas -With regards to the pancreas it was recommended a 3-month follow-up -Follow-up CT with liver phase contrast was performed and no liver abnormality found -CA 19-9 pending CAD/HTN/HPL/postoperative atrial fibrillation -History of bypass 11/04/2020 -Patient with no recent atrial fibrillation -Continue home aspirin -Continue home atorvastatin -Continue Plavix -Restart home Lasix GERD -Continue home Protonix Hypothyroidism -Continue home Mild cognitive impairment/vascular dementia/Alzheimer's type dementia -Per brother she was recently diagnosed with both vascular and Alzheimer's type dementia -Continue home Aricept -Brother feels she is no longer safe to go home -Would like to obtain placement at discharge however I do not feel that she will qualify for skilled facility and may need to do ECF route -Discussed with case manager specialist and they will need to do more work on Wednesday or Wednesday of next week on this -Patient is agreeable to go somewhere Anxiety/depression -Continue home nortriptyline -Continue home escitalopram DVT prophylaxis -Lovenox daily CODE STATUS -full code Charges/Coding Visit Charges OBSV E&M: 64296 Observ/hosp same date L2
[2022-05-24 20:00] VITALS: BP 141/49; PULSE 65; RESP 16; TEMP 36.7; O2SAT 96
[2022-05-24] MEDS: Atorvastatin Calcium 80 MG Tablet PO (21:23)
[2022-05-24] MEDS: MELATONIN 10 MG TABLET PO (21:23)
[2022-05-24] MEDS: Donepezil HCl 5 MG Tablet PO (21:24)
[2022-05-25 02:15] VITALS: BP 129/52; PULSE 65; RESP 18; TEMP 36.6; O2SAT 94
[2022-05-25] MEDS: Levothyroxine 25 MCG TABLET PO (05:30)
[2022-05-25] MEDS: metroNIDAZOLE 500 MG/100 ML BAG 100 MG IV ×3 (05:30→22:53)
[2022-05-25 06:56] LABS: Anion Gap 5 (5-15); BUN 6 mg/dL (7-18); BUN/Creat Ratio 8.3 RATIO (10-20); Chloride 106 mmol/L (98-107); Creatinine, Serum 0.72 mg/dL (0.55-1.02); EST Glomerular Filtration Rate 83 mL/min (>60); Est Glom Filt Rate - Afr Amer 101 mL/min (>60); Glucose 111 mg/dL (74-106); Potassium 3.5 mmol/L (3.5-5.1); Sodium Level 137 mmol/L (136-145)
[2022-05-25 07:32] VITALS: BP 117/48; PULSE 65; RESP 16; TEMP 36.6; O2SAT 94
[2022-05-25 07:35] VITALS: BP 117/48; PULSE 65; RESP 16; TEMP 36.6; O2SAT 94
[2022-05-25] MEDS: Aspirin E.C. 81 MG Tablet PO (07:42)
--- NOTE | 2022-05-25 08:35 | PN.HOSP_ITS ---
Subjective Subjective Feeling well. Tolerating PO. Objective Data Objective Data Vital Signs: Vital Signs Temp Pulse Resp BP Pulse Ox O2 Del Method 36.6 C 65 16 117/48 L 94 Room Air 05/25/22 07:35 05/25/22 07:35 05/25/22 07:35 05/25/22 07:35 05/25/22 07:35 05/25/22 07:35 Oxygen Delivery Method Room Air Weight: 70 kg Body Mass Index (BMI) 24.9 Intake & Output: Intake and Output for Last 24 Hours 05/23/22 05/24/22 05/25/22 23:59 23:59 23:59 Intake Total 2203.75 / 2203.75 800 / 800 100 / 100 Output Total 300 / 300 Balance 2203.75 / 2203.75 500 / 500 100 / 100 Lab / Micro Data Result Diagrams: 05/24/22 06:52 05/25/22 05:35 Labs: Laboratory Results - last 24 hr 05/25/22 05:35: Sodium 137, Potassium 3.5, Chloride 106, Carbon Dioxide 26.0, Anion Gap 5, BUN 6 L, Creatinine 0.72, Estim Creat Clear Calc 44.80, Est GFR (MDRD) Af Amer 101, Est GFR (MDRD) Non-Af 83, BUN/Creatinine Ratio 8.3 L, Glucose 111 H, Calcium 8.0 L Physical Exam Const alert and no apparent distress HEENT head/scalp atraumatic and moist oral mucous membranes Resp normal respiratory effort, no retractions, no use of accessory muscles and clear to auscultation bilaterally Cardio regular rate, regular rhythm, S1 normal heart sound and S2 normal heart sound GI normal to inspection, nondistended, normoactive bowel sounds and soft to palpation Extremity normal to inspection Neuro oriented x3 Sensorium / Orientation: awake and alert Psych affect normal Assessment & Plan Assessment/Plan (1) Colitis: PLAN: -Unclear if it is or ischemic related or infectious -Continue Cipro and Flagyl for total of 5 to 7 days (day 2) -Leukocytosis resolved -Continue p.o. diet as able -As needed antiemetics -Seems to be clinically improving with regards to this -Follow up with GI as outpt. (2) Hypokalemia: PLAN: -Better but not normalized -3.2 this morning up from 2.9 -We will repeat oral potassium (3) Leukocytosis: QUALIFIERS: Leukocytosis type: unspecified Qualified Code(s): D72.829 - Elevated white blood cell count, unspecified PLAN: Resolved 2/2 colitis (4) Lesion of pancreas: PLAN: -Patient with lesions in the liver and the pancreas -With regards to the pancreas it was recommended a 3-month follow-up -Follow-up CT with liver phase contrast was performed and no liver abnormality found -CA 19-9 pending (5) Hepatic lesion: PLAN: No mass seen on follow up CT. (6) Nausea & vomiting: PLAN: -Unclear if this is related to antibiotics or something else -Continue antiemetics -Continue to monitor PLAN: Plan Chronic conditions: CAD/HTN/HPL/postoperative atrial fibrillation -History of bypass 11/04/2020 -Patient with no recent atrial fibrillation -Continue home aspirin -Continue home atorvastatin -Continue Plavix -Restart home Lasix GERD -Continue home Protonix Hypothyroidism -Continue home Mild cognitive impairment/vascular dementia/Alzheimer's type dementia -Per brother she was recently diagnosed with both vascular and Alzheimer's type dementia -Continue home Aricept -Brother feels she is no longer safe to go home -Would like to obtain placement at discharge however I do not feel that she will qualify for skilled facility and may need to do ECF route -Discussed with dependency case manager and they will need to do more work on Wednesday or Wednesday of next week on this -Patient is agreeable to go somewhere Anxiety/depression -Continue home nortriptyline -Continue home escitalopram DVT prophylaxis -Lovenox daily CODE STATUS -full code To SNF pending insurance authorization. Charges/Coding Visit Charges Inpatient E&M: 31904 Subs Hosp L2
[2022-05-25] MEDS: Potassium Chloride Oral Tablet 20 MEQ PO ×2 (09:47→21:53)
[2022-05-25] MEDS: Enoxaparin 30 MG/0.3 ML Syringe SC (09:48)
[2022-05-25] MEDS: Escitalopram Oxalate 10 MG Tablet PO (09:48)
[2022-05-25] MEDS: Furosemide 40 MG Tablet PO ×2 (09:49→17:37)
[2022-05-25] MEDS: Clopidogrel Bisulfate 75 MG Tablet PO (09:49)
[2022-05-25] MEDS: Pantoprazole Sodium 40 MG Tablet PO (09:49)
[2022-05-25 09:50] VITALS: PULSE 65
[2022-05-25] MEDS: Metoprolol(XL)Succ 25 MG Tablet PO (09:50)
[2022-05-25] MEDS: Nortriptyline 25 MG Capsule PO ×2 (09:50→21:53)
[2022-05-25] MEDS: Ciprofloxacin 400 MG/200 ML BAG 200 MG IV ×2 (09:54→21:53)
[2022-05-25 13:30] VITALS: BP 111/44; PULSE 73; RESP 16; TEMP 36.6; O2SAT 97
[2022-05-25 21:53] VITALS: BP 118/60; PULSE 73; RESP 14; TEMP 36.6; O2SAT 96
[2022-05-25] MEDS: MELATONIN 10 MG TABLET PO (21:53)
[2022-05-25] MEDS: Atorvastatin Calcium 80 MG Tablet PO (21:53)
[2022-05-25] MEDS: Donepezil HCl 5 MG Tablet PO (21:53)
[2022-05-26 03:07] VITALS: BP 141/63; PULSE 67; RESP 16; TEMP 36.3; O2SAT 97
[2022-05-26] MEDS: metroNIDAZOLE 500 MG/100 ML BAG 100 MG IV ×3 (05:26→20:19)
[2022-05-26] MEDS: Levothyroxine 25 MCG TABLET PO (05:27)
--- NOTE | 2022-05-26 07:54 | PN.HOSP_ITS ---
Subjective Subjective Feels well. No complaints. Objective Data Objective Data Vital Signs: Vital Signs Temp Pulse Resp BP Pulse Ox O2 Del Method 36.3 C L 67 16 141/63 H 97 Room Air 05/26/22 03:07 05/26/22 03:07 05/26/22 03:07 05/26/22 03:07 05/26/22 03:07 05/26/22 03:07 Oxygen Delivery Method Room Air Weight: 70 kg Body Mass Index (BMI) 24.9 Intake & Output: Intake and Output for Last 24 Hours 05/24/22 05/25/22 05/26/22 23:59 23:59 23:59 Intake Total 800 / 800 600 / 600 200 / 200 Output Total 300 / 300 Balance 500 / 500 600 / 600 200 / 200 Lab / Micro Data Result Diagrams: 05/24/22 06:52 05/25/22 05:35 Physical Exam Const alert and no apparent distress Resp normal respiratory effort, no retractions, no use of accessory muscles and clear to auscultation bilaterally Cardio regular rate, regular rhythm, S1 normal heart sound and S2 normal heart sound GI normal to inspection, nondistended, normoactive bowel sounds Assessment & Plan Assessment/Plan (1) Colitis: PLAN: -Unclear if it is or ischemic related or infectious -Continue Cipro and Flagyl for total of 5 to 7 days (day 2) -Leukocytosis resolved -Continue p.o. diet as able -As needed antiemetics -Seems to be clinically improving with regards to this -Follow up with GI as outpt. (2) Hypokalemia: PLAN: resolved. (3) Leukocytosis: QUALIFIERS: Leukocytosis type: unspecified Qualified Code(s): D72.829 - Elevated white blood cell count, unspecified PLAN: Resolved 2/2 colitis (4) Lesion of pancreas: PLAN: -Patient with lesions in the liver and the pancreas -With regards to the pancreas it was recommended a 3-month follow-up -Follow-up CT with liver phase contrast was performed and no liver abnormality found -CA 19-9 pending (5) Hepatic lesion: PLAN: No mass seen on follow up CT. (6) Nausea & vomiting: PLAN: -Unclear if this is related to antibiotics or something else -Continue antiemetics -Continue to monitor PLAN: Plan Chronic conditions: CAD/HTN/HPL/postoperative atrial fibrillation -History of bypass 11/04/2020 -Patient with no recent atrial fibrillation -Continue home aspirin -Continue home atorvastatin -Continue Plavix -Restart home Lasix GERD -Continue home Protonix Hypothyroidism -Continue home Mild cognitive impairment/vascular dementia/Alzheimer's type dementia -Per brother she was recently diagnosed with both vascular and Alzheimer's type dementia -Continue home Aricept -Brother feels she is no longer safe to go home -Would like to obtain placement at discharge however I do not feel that she will qualify for skilled facility and may need to do ECF route -Discussed with casey saw operator and they will need to do more work on Wednesday or Wednesday of next week on this -Patient is agreeable to go somewhere Anxiety/depression -Continue home nortriptyline -Continue home escitalopram DVT prophylaxis -Lovenox daily CODE STATUS -full code To SNF pending insurance authorization. Charges/Coding Visit Charges Inpatient E&M: 59293 Subs Hosp L2
[2022-05-26 09:07] VITALS: BP 141/77; PULSE 65; RESP 18; TEMP 36.6; O2SAT 96
[2022-05-26] MEDS: Aspirin E.C. 81 MG Tablet PO (09:22)
[2022-05-26] MEDS: Potassium Chloride Oral Tablet 20 MEQ PO ×2 (09:22→20:19)
[2022-05-26] MEDS: Enoxaparin 30 MG/0.3 ML Syringe SC (09:22)
[2022-05-26] MEDS: Clopidogrel Bisulfate 75 MG Tablet PO (09:22)
[2022-05-26] MEDS: Furosemide 40 MG Tablet PO ×2 (09:22→17:16)
[2022-05-26 09:23] VITALS: PULSE 65
[2022-05-26] MEDS: Ciprofloxacin 400 MG/200 ML BAG 200 MG IV ×2 (09:23→22:20)
[2022-05-26] MEDS: Escitalopram Oxalate 10 MG Tablet PO (09:23)
[2022-05-26] MEDS: Nortriptyline 25 MG Capsule PO ×2 (09:23→20:19)
[2022-05-26] MEDS: Metoprolol(XL)Succ 25 MG Tablet PO (09:23)
[2022-05-26] MEDS: Pantoprazole Sodium 40 MG Tablet PO (09:23)
[2022-05-26 14:20] VITALS: BP 131/72; PULSE 71; RESP 18; TEMP 36.5; O2SAT 99
--- NOTE | 2022-05-26 15:03 | CASEMGMT ---
Social Work ? SW in to meet with pt following update from that pt will need placement at nursing facility. SW introduced self and role at the hospital. Pt agreeable to discussing discharge planning. A list of SNF providers including quality and resource use data and consistent with the patient?s preferred geographic region, medical needs, and insurance network were provided from the [employer]. Pt's brother and sister in law present in the room. Pt brother asked to speak to SW outside the room. Brother Adolph, stated was POA and has noticed pt declining in health much more in recent days. Adolph stated family has checked out [facility] and it would be preference for placement as pt will likely go there for LTC after skilled therapy. Adolph asked many questions regarding placement for skilled vs. LTC and AL. SW counseled Adolph and Jinny on difference between options. SWETHA attempted to discuss with pt, however after further discussion with pt and pt not being fully oriented to place or time or reason for being in hospital SW determined pt brother and POA should make choice. SWETHA sent referral to [facility]. Pending precert and acceptance. PLAN: [facility], Pending precert and acceptance. ? RICHAR Hdez? ?
[2022-05-26 15:19] LABS: Pathologist Review Reviewed
[2022-05-26 20:14] VITALS: BP 132/70; PULSE 66; RESP 15; TEMP 36.7; O2SAT 94
[2022-05-26] MEDS: Donepezil HCl 5 MG Tablet PO (20:19)
[2022-05-26] MEDS: Atorvastatin Calcium 80 MG Tablet PO (20:19)
[2022-05-26] MEDS: MELATONIN 10 MG TABLET PO (20:19)
--- NOTE | 2022-05-26 23:13 | NURSING ---
Spoke to CHRISTIN Farfan, and updated on patient's care. Patient concerned she is not getting home meds, but was confirmed they were reordered and patient is recieving them. Adolph voiced concerns about patient getting up and ambulating during the day.
[2022-05-26] MEDS: Benzonatate 100 MG Capsule PO (23:46)
[2022-05-26] MEDS: Ondansetron 4 MG/2 ML Vial IV (23:46)
[2022-05-27 02:15] VITALS: BP 128/76; PULSE 64; RESP 15; TEMP 36.7; O2SAT 94
[2022-05-27] MEDS: metroNIDAZOLE 500 MG/100 ML BAG 100 MG IV (05:14)
[2022-05-27] MEDS: Levothyroxine 25 MCG TABLET PO (05:14)
[2022-05-27 08:04] VITALS: BP 132/68; PULSE 71; RESP 18; TEMP 36.6; O2SAT 99
[2022-05-27] MEDS: Aspirin E.C. 81 MG Tablet PO (08:09)
[2022-05-27 08:10] VITALS: PULSE 71
[2022-05-27] MEDS: Enoxaparin 30 MG/0.3 ML Syringe SC (08:10)
[2022-05-27] MEDS: Furosemide 40 MG Tablet PO ×2 (08:10→17:31)
[2022-05-27] MEDS: Escitalopram Oxalate 10 MG Tablet PO (08:10)
[2022-05-27] MEDS: Nortriptyline 25 MG Capsule PO ×2 (08:10→20:27)
[2022-05-27] MEDS: Pantoprazole Sodium 40 MG Tablet PO (08:10)
[2022-05-27] MEDS: Clopidogrel Bisulfate 75 MG Tablet PO (08:10)
[2022-05-27] MEDS: Potassium Chloride Oral Tablet 20 MEQ PO ×2 (08:10→20:26)
[2022-05-27] MEDS: Metoprolol(XL)Succ 25 MG Tablet PO (08:10)
--- NOTE | 2022-05-27 08:15 | PN.HOSP_ITS ---
Subjective Subjective Feels well. No complaint Objective Data Objective Data Vital Signs: Vital Signs Temp Pulse Resp BP Pulse Ox O2 Del Method 36.6 C 71 18 132/68 H 99 Room Air 05/27/22 08:04 05/27/22 08:10 05/27/22 08:04 05/27/22 08:04 05/27/22 08:04 05/27/22 08:06 Oxygen Delivery Method Room Air Weight: 70 kg Body Mass Index (BMI) 24.9 Intake & Output: Intake and Output for Last 24 Hours 05/25/22 05/26/22 05/27/22 23:59 23:59 23:59 Intake Total 600 / 600 800 / 1000 500 / 500 Balance 600 / 600 800 / 1000 500 / 500 Lab / Micro Data Result Diagrams: 05/24/22 06:52 05/25/22 05:35 Labs: Laboratory Results - last 24 hr 05/22/22 13:00: Diff Path Review Reviewed Physical Exam Const alert and no apparent distress Resp normal respiratory effort, no retractions, no use of accessory muscles and clear to auscultation bilaterally Cardio regular rate, regular rhythm, S1 normal heart sound and S2 normal heart sound GI normal to inspection, nondistended, normoactive bowel sounds, soft to palpation and non-tender Extremity normal to inspection Assessment & Plan Assessment/Plan (1) Colitis: PLAN: -Unclear if it is or ischemic related or infectious -Continue Cipro and Flagyl for total 7 days through 05/28, change to PO given continued improvement. -Leukocytosis resolved -Continue p.o. diet as able -As needed antiemetics -Seems to be clinically improving with regards to this -Follow up with GI as outpt. (2) Hypokalemia: PLAN: improved replace (3) Leukocytosis: QUALIFIERS: Leukocytosis type: unspecified Qualified Code(s): D72.829 - Elevated white blood cell count, unspecified PLAN: Resolved 2/2 colitis (4) Lesion of pancreas: PLAN: -Patient with lesions in the liver and the pancreas -With regards to the pancreas it was recommended a 3-month follow-up -Follow-up CT with liver phase contrast was performed and no liver abnormality found -CA 19-9 pending (5) Hepatic lesion: PLAN: No mass seen on follow up CT. (6) Nausea & vomiting: PLAN: Resolved. May been due to colitis PLAN: Plan Chronic conditions: CAD/HTN/HPL/postoperative atrial fibrillation -History of bypass 11/04/2020 -Patient with no recent atrial fibrillation -Continue home aspirin -Continue home atorvastatin -Continue Plavix -Restart home Lasix GERD -Continue home Protonix Hypothyroidism -Continue home Mild cognitive impairment/vascular dementia/Alzheimer's type dementia -Per brother she was recently diagnosed with both vascular and Alzheimer's type dementia -Continue home Aricept -Brother feels she is no longer safe to go home -Would like to obtain placement at discharge however I do not feel that she will qualify for skilled facility and may need to do ECF route -Discussed with casework specialist and they will need to do more work on Wednesday or Wednesday of next week on this -Patient is agreeable to go somewhere Anxiety/depression -Continue home nortriptyline -Continue home escitalopram DVT prophylaxis -Lovenox daily CODE STATUS -full code To SNF pending insurance authorization. Charges/Coding Visit Charges Inpatient E&M: 48257 Subs Hosp L2
[2022-05-27] MEDS: Ciprofloxacin 500 MG Tablet PO ×2 (09:57→20:26)
--- NOTE | 2022-05-27 11:35 | CASEMGMT ---
Addendum entered by Lexie Hodgson 05/27/22 12:08: MD Henao informed that pt is medically ready. SWETHA asked Ameena at [facility] to begin precert. SWETHA called pt ROBERTOA, brother Adolph to inform of acceptance. Adolph voiced understanding that insurance auth is pending and will wait until a determination is made. RICHAR Hdez Original Note: Social Work SW received message from Ameena via [employer]. [facility] able to accept pt. MD Henao informed of acceptance. PLAN: [facility], pending precert RICHAR Hdez
[2022-05-27 11:40] VITALS: O2SAT 95
[2022-05-27] MEDS: metroNIDAZOLE 500 MG Tablet PO ×2 (13:40→20:26)
[2022-05-27 14:00] VITALS: BP 123/61; PULSE 69; RESP 18; TEMP 36.5; O2SAT 96
[2022-05-27 19:26] LABS: Carbohydrate AG 19-9 13 U/mL (0-35)
[2022-05-27 20:21] VITALS: BP 124/74; PULSE 77; RESP 15; TEMP 36.5; O2SAT 95
[2022-05-27] MEDS: Donepezil HCl 5 MG Tablet PO (20:25)
[2022-05-27] MEDS: MELATONIN 10 MG TABLET PO (20:27)
[2022-05-27] MEDS: Atorvastatin Calcium 80 MG Tablet PO (20:27)
[2022-05-28 02:20] VITALS: BP 118/68; PULSE 68; RESP 14; TEMP 36.4; O2SAT 94
[2022-05-28] MEDS: Levothyroxine 25 MCG TABLET PO (05:34)
[2022-05-28] MEDS: metroNIDAZOLE 500 MG Tablet PO ×3 (05:34→21:29)
[2022-05-28 08:00] VITALS: BP 137/72; PULSE 79; RESP 18; TEMP 36.6; O2SAT 96
--- NOTE | 2022-05-28 08:24 | PCM.PN.HOSP ---
Subjective Subjective Feels well. No complaints. Objective Data Objective Data Vital Signs: Vital Signs Temp Pulse Resp BP Pulse Ox O2 Del Method 36.4 C L 68 14 118/68 94 Room Air 05/28/22 02:20 05/28/22 02:20 05/28/22 02:20 05/28/22 02:20 05/28/22 02:20 05/28/22 07:46 Oxygen Delivery Method Room Air Weight: 70 kg Body Mass Index (BMI) 24.9 Intake & Output: Intake and Output for Last 24 Hours 05/26/22 05/27/22 05/28/22 23:59 23:59 23:59 Intake Total 800 / 1000 500 / 700 450 / 450 Balance 800 / 1000 500 / 700 450 / 450 Lab / Micro Data Result Diagrams: 05/24/22 06:52 05/25/22 05:35 Labs: Laboratory Results - last 24 hr 05/24/22 06:52: CA 19-9 Antigen 13 Physical Exam Const alert and no apparent distress Constitutional Narrative: up in chair. Assessment & Plan Assessment/Plan (1) Colitis: PLAN: -Unclear if it is or ischemic related or infectious -Continue Cipro and Flagyl for total 7 days through 05/28, change to PO given continued improvement. -Leukocytosis resolved -Continue p.o. diet as able -As needed antiemetics -Seems to be clinically improving with regards to this -Follow up with GI as outpt. (2) Hypokalemia: PLAN: improved replace (3) Leukocytosis: QUALIFIERS: Leukocytosis type: unspecified Qualified Code(s): D72.829 - Elevated white blood cell count, unspecified PLAN: Resolved 2/2 colitis (4) Lesion of pancreas: PLAN: -Patient with lesions in the liver and the pancreas -With regards to the pancreas it was recommended a 3-month follow-up -Follow-up CT with liver phase contrast was performed and no liver abnormality found -CA 19-9 pending (5) Hepatic lesion: PLAN: No mass seen on follow up CT. (6) Nausea & vomiting: PLAN: Resolved. May been due to colitis (7) Debility: PLAN: 2/2 to underlying illness, advanced age and multiple medical comorbidities Needs some assistance with therapy. Would benefit from SNF. PLAN: Plan Chronic conditions: CAD/HTN/HPL/postoperative atrial fibrillation -History of bypass 11/04/2020 -Patient with no recent atrial fibrillation -Continue home aspirin -Continue home atorvastatin -Continue Plavix -Restart home Lasix GERD -Continue home Protonix Hypothyroidism -Continue home Mild cognitive impairment/vascular dementia/Alzheimer's type dementia -Per brother she was recently diagnosed with both vascular and Alzheimer's type dementia -Continue home Aricept -Brother feels she is no longer safe to go home -Would like to obtain placement at discharge however I do not feel that she will qualify for skilled facility and may need to do ECF route -Discussed with special education case manager and they will need to do more work on Wednesday or Wednesday of next week on this -Patient is agreeable to go somewhere Anxiety/depression -Continue home nortriptyline -Continue home escitalopram DVT prophylaxis -Lovenox daily CODE STATUS -full code To SNF pending insurance authorization. Charges/Coding Visit Charges Inpatient E&M: 11239 Subs Hosp L1
[2022-05-28] MEDS: Aspirin E.C. 81 MG Tablet PO (08:59)
[2022-05-28 09:00] VITALS: PULSE 79
[2022-05-28] MEDS: Clopidogrel Bisulfate 75 MG Tablet PO (09:00)
[2022-05-28] MEDS: Furosemide 40 MG Tablet PO ×2 (09:00→16:58)
[2022-05-28] MEDS: Escitalopram Oxalate 10 MG Tablet PO (09:00)
[2022-05-28] MEDS: Metoprolol(XL)Succ 25 MG Tablet PO (09:00)
[2022-05-28] MEDS: Nortriptyline 25 MG Capsule PO ×2 (09:00→21:29)
[2022-05-28] MEDS: Enoxaparin 30 MG/0.3 ML Syringe SC (09:00)
[2022-05-28] MEDS: Ciprofloxacin 500 MG Tablet PO ×2 (09:00→21:30)
[2022-05-28] MEDS: Potassium Chloride Oral Tablet 20 MEQ PO ×2 (09:00→21:29)
[2022-05-28] MEDS: Pantoprazole Sodium 40 MG Tablet PO (09:00)
[2022-05-28 14:00] VITALS: BP 143/76; PULSE 80; RESP 18; TEMP 36.6; O2SAT 96
--- NOTE | 2022-05-28 15:00 | CASEMGMT ---
social Work SW spoke with [facility] and precert is still pending. SWETHA spoke with pt on phone and updated on precert process and that determination has not been made at this time. Sw will continue to follow. Plan: [facility], pending precert RICHAR Wasserman
[2022-05-28 20:00] VITALS: BP 104/56; PULSE 69; RESP 17; TEMP 37.2; O2SAT 96
[2022-05-28] MEDS: MELATONIN 10 MG TABLET PO (21:29)
[2022-05-28] MEDS: Donepezil HCl 5 MG Tablet PO (21:29)
[2022-05-28] MEDS: Atorvastatin Calcium 80 MG Tablet PO (21:29)
[2022-05-28] MEDS: 0.9% Saline Lock 10 ML Syringe IV (21:30)
[2022-05-29] VITALS (7 sets, daily range): BP systolic 107–140; BP diastolic 57–84; PULSE 67–89; RESP 15–18; TEMP 36.4–36.9; O2SAT 92–99
[2022-05-29] MEDS: Levothyroxine 25 MCG TABLET PO (06:13)
[2022-05-29] MEDS: Aspirin E.C. 81 MG Tablet PO (08:02)
--- NOTE | 2022-05-29 08:32 | PN.HOSP_ITS ---
Subjective Subjective No events overnight. Tolerating diet. No abdominal pain. Objective Data Objective Data Vital Signs: Vital Signs Temp Pulse Resp BP Pulse Ox O2 Del Method O2 Flow Rate 36.9 C 74 16 127/84 H 98 Room Air 97 05/29/22 08:03 05/29/22 08:03 05/29/22 08:03 05/29/22 08:03 05/29/22 08:03 05/29/22 08:03 05/28/22 08:35 Oxygen Flow Rate (L/min) 97 Oxygen Delivery Method Room Air Weight: 70 kg Body Mass Index (BMI) 24.9 Intake & Output: Intake and Output for Last 24 Hours 05/27/22 05/28/22 05/29/22 23:59 23:59 23:59 Intake Total 500 / 700 450 / 450 Balance 500 / 700 450 / 450 Lab / Micro Data Result Diagrams: 05/24/22 06:52 05/25/22 05:35 Physical Exam Const alert and no apparent distress HEENT head/scalp atraumatic and moist oral mucous membranes Assessment & Plan Assessment/Plan (1) Colitis: PLAN: -Unclear if it is or ischemic related or infectious -Completed abx -Leukocytosis resolved -Continue p.o. diet as able -As needed antiemetics -Seems to be clinically improving with regards to this -Follow up with GI as outpt. (2) Hypokalemia: PLAN: improved replace (3) Leukocytosis: QUALIFIERS: Leukocytosis type: unspecified Qualified Code(s): D72.829 - Elevated white blood cell count, unspecified PLAN: Resolved 2/2 colitis (4) Lesion of pancreas: PLAN: -Patient with lesions in the liver and the pancreas -With regards to the pancreas it was recommended a 3-month follow-up -Follow-up CT with liver phase contrast was performed and no liver abnormality found -CA 19-9 pending (5) Hepatic lesion: PLAN: No mass seen on follow up CT. (6) Nausea & vomiting: PLAN: Resolved. May been due to colitis (7) Debility: PLAN: 2/2 to underlying illness, advanced age and multiple medical comorbidities Needs some assistance with therapy. Would benefit from SNF. PLAN: Plan Chronic conditions: CAD/HTN/HPL/postoperative atrial fibrillation -History of bypass 11/04/2020 -Patient with no recent atrial fibrillation -Continue home aspirin -Continue home atorvastatin -Continue Plavix -Restart home Lasix GERD -Continue home Protonix Hypothyroidism -Continue home Mild cognitive impairment/vascular dementia/Alzheimer's type dementia -Per brother she was recently diagnosed with both vascular and Alzheimer's type dementia -Continue home Aricept -Brother feels she is no longer safe to go home -Would like to obtain placement at discharge however I do not feel that she will qualify for skilled facility and may need to do ECF route -Discussed with case management assistant and they will need to do more work on Wednesday or Wednesday of next week on this -Patient is agreeable to go somewhere Anxiety/depression -Continue home nortriptyline -Continue home escitalopram DVT prophylaxis -Lovenox daily CODE STATUS -full code To SNF pending insurance authorization. Charges/Coding Visit Charges Inpatient E&M: 87209 Subs Hosp L1
[2022-05-29] MEDS: Escitalopram Oxalate 10 MG Tablet PO (09:24)
[2022-05-29] MEDS: Furosemide 40 MG Tablet PO ×2 (09:24→17:02)
[2022-05-29] MEDS: Enoxaparin 30 MG/0.3 ML Syringe SC (09:24)
[2022-05-29] MEDS: Clopidogrel Bisulfate 75 MG Tablet PO (09:24)
[2022-05-29] MEDS: Potassium Chloride Oral Tablet 20 MEQ PO ×2 (09:24→20:50)
[2022-05-29] MEDS: Nortriptyline 25 MG Capsule PO ×2 (09:24→20:50)
[2022-05-29] MEDS: Metoprolol(XL)Succ 25 MG Tablet PO (09:25)
[2022-05-29] MEDS: Pantoprazole Sodium 40 MG Tablet PO (09:25)
--- NOTE | 2022-05-29 10:16 | PCM.TXEXTCAR ---
Diet Diet Order/Speech Therapy: 05/22/22 19:24 Diet: Cardiac - Heart Healthy Food consistency:: Regular Liquid Consistency:: Regular/Thin Routine Orders/Code Status Routine Lab Work: CBC and BMP Code Status: Full Code Therapies Weight Bearing: Full weight bearing Physical Therapy: Eval and Treat Occupational Therapy: Eval and Treat Problem/Diagnosis (1) Colitis: Status: Acute Code(s): K52.9 - Noninfective gastroenteritis and colitis, unspecified Plan: -Unclear if it is or ischemic related or infectious -Completed abx -Leukocytosis resolved -Continue p.o. diet as able -As needed antiemetics -Seems to be clinically improving with regards to this -Follow up with GI as outpt. (2) Hypokalemia: Status: Chronic Code(s): E87.6 - Hypokalemia Plan: improved replace (3) Leukocytosis: Status: Acute Code(s): D72.829 - Elevated white blood cell count, unspecified Plan: Resolved 2/2 colitis (4) Lesion of pancreas: Status: Acute Code(s): K86.9 - Disease of pancreas, unspecified Plan: -Patient with lesions in the liver and the pancreas -With regards to the pancreas it was recommended a 3-month follow-up -Follow-up CT with liver phase contrast was performed and no liver abnormality found -CA 19-9 pending (5) Hepatic lesion: Status: Acute Code(s): K76.9 - Liver disease, unspecified Plan: No mass seen on follow up CT. (6) Nausea & vomiting: Status: Acute Code(s): R11.2 - Nausea with vomiting, unspecified Plan: Resolved. May been due to colitis (7) Debility: Status: Acute Code(s): R53.81 - Other malaise Plan: 2/2 to underlying illness, advanced age and multiple medical comorbidities Needs some assistance with therapy. Would benefit from SNF. Plan Chronic conditions: CAD/HTN/HPL/postoperative atrial fibrillation -History of bypass 11/04/2020 -Patient with no recent atrial fibrillation -Continue home aspirin -Continue home atorvastatin -Continue Plavix -Restart home Lasix GERD -Continue home Protonix Hypothyroidism -Continue home Mild cognitive impairment/vascular dementia/Alzheimer's type dementia -Per brother she was recently diagnosed with both vascular and Alzheimer's type dementia -Continue home Aricept -Brother feels she is no longer safe to go home -Would like to obtain placement at discharge however I do not feel that she will qualify for skilled facility and may need to do ECF route -Discussed with community case manager and they will need to do more work on Wednesday or Wednesday of next week on this -Patient is agreeable to go somewhere Anxiety/depression -Continue home nortriptyline -Continue home escitalopram DVT prophylaxis -Lovenox daily CODE STATUS -full code To SNF pending insurance authorization. Allergies/Procedures Done in Hospital Allergies iodine Allergy (Verified 05/22/22 12:34) doesnt feel well lisinopril Adverse Reaction (Intermediate, Verified 05/22/22 12:34) cough Procedures: None Type of Care/Length of Stay Estimated LOS: Convalescent Care Less Than 30 days Type of Care Needed: Skilled Rehab Potential: Good Prognosis: Good Additional Orders/Day of Discharge Day of Discharge: 05/29/22 Dietary and Speech Recommendations Dietitian Recommendations/Changes: Continue with Cardiac: Heart-Healthy diet to manage medical conditions Discharge Plan Admission Admit Date/Time: 05/22/22 18:44 Primary Reason for Your Visit: colitis Attending Provider: Chano Henao Primary Care Provider: Alisson Armenta Consulting Providers: Jamir Ley ; Gisela Chandler Discharge Orders/Prescriptions Prescriptions: Continued celecoxib [Celebrex] 200 mg capsule 200 mg PO DAILY PRN (Reason: Pain) benzonatate 100 mg capsule 100 mg PO TID PRN (Reason: Cough) nortriptyline 25 mg capsule 25 mg PO BID cholecalciferol (vitamin D3) 25 mcg (1,000 unit) Capsule 25 mcg PO DAILY pantoprazole 40 mg tablet,delayed release (DR/EC) 40 mg PO DAILY Label Comments: TAKE 1 TABLET BY MOUTH ONCE DAILY IN THE MORNING escitalopram oxalate 10 mg tablet 10 mg PO DAILY Label Comments: TAKE 1 TABLET BY MOUTH ONCE DAILY IN THE MORNING acetaminophen 500 mg Capsule 1,000 mg PO Q8H PRN (Reason: Pain, Moderate) melatonin 10 mg capsule 10 mg PO/SL QHS atorvastatin 80 mg tablet 80 mg PO QHS levothyroxine 25 mcg tablet 25 mcg PO DAILY donepezil [Aricept] 5 mg Tablet 5 mg PO DAILY ondansetron HCl 4 mg Tablet 4 mg PO Q6H PRN (Reason: Nausea) cyanocobalamin (vitamin B-12) 1,000 mcg Capsule 1,000 mcg PO DAILY furosemide 40 mg tablet 40 mg PO BID Qty: 180 3RF aspirin [Adult Aspirin Regimen] 81 mg tablet,delayed release (DR/EC) 81 mg PO DAILY metoprolol succinate 50 mg tablet extended release 24 hr 25 mg PO DAILY Qty: 30 11RF clopidogrel 75 mg tablet 75 mg PO DAILY Qty: 90 3RF potassium chloride 10 mEq tablet extended release 20 meq PO BID Qty: 120 11RF Discontinued doxycycline hyclate 100 mg Tablet 100 mg PO BID Rx Instructions: Started 05/14/22 take for 10 days. Referrals / Follow Up: Alisson Armenta MD [Primary Care Provider] - Within 2 Weeks Jose Heath DO [Med Staff - Active Staff] - Within 1 Month Disposition Disposition (needs filled in before D/C Order can be placed): Intermediate Facility (1) Leukocytosis Qualifiers: Leukocytosis type: unspecified Qualified Code(s): D72.829 - Elevated white blood cell count, unspecified
--- NOTE | 2022-05-29 17:44 | CASEMGMT ---
Social Work Pt awaiting precert for admission to [facility]. SW contacted [facility] multiple times today and precert has not yet been obtained. PASRR completed and nursing unit phone number provided to [facility] in the event precert is given over the weekend. Phone call to pt brother Adolph and updated. SWETHA met with pt and updated on the above. Both express understanding. Plan: [place], pending precert RICHAR Wasserman
[2022-05-29] MEDS: Atorvastatin Calcium 80 MG Tablet PO (20:50)
[2022-05-29] MEDS: MELATONIN 10 MG TABLET PO (20:50)
[2022-05-29] MEDS: Donepezil HCl 5 MG Tablet PO (20:50)
[2022-05-30] VITALS (7 sets, daily range): BP systolic 122–148; BP diastolic 57–88; PULSE 70–79; RESP 16–20; TEMP 36.2–36.6; O2SAT 92–99
[2022-05-30] MEDS: Levothyroxine 25 MCG TABLET PO (04:16)
--- NOTE | 2022-05-30 08:21 | PCM.PN.HOSP ---
Subjective Subjective Nausea today. Zofran not effective. Objective Data Objective Data Vital Signs: Vital Signs Temp Pulse Resp BP Pulse Ox O2 Del Method O2 Flow Rate 36.6 C 70 16 122/62 H 93 Room Air 97 05/30/22 04:14 05/30/22 04:14 05/30/22 04:14 05/30/22 04:14 05/30/22 04:14 05/30/22 04:14 05/28/22 08:35 Oxygen Flow Rate (L/min) 97 Oxygen Delivery Method Room Air Weight: 70 kg Body Mass Index (BMI) 24.9 Intake & Output: Intake and Output for Last 24 Hours 05/28/22 05/29/22 05/30/22 23:59 23:59 23:59 Intake Total 450 / 450 240 / 240 Balance 450 / 450 240 / 240 Lab / Micro Data Result Diagrams: 05/24/22 06:52 05/25/22 05:35 Physical Exam Const alert and no apparent distress Resp normal respiratory effort, no retractions, no use of accessory muscles and clear to auscultation bilaterally Cardio regular rate, regular rhythm, S1 normal heart sound and S2 normal heart sound GI normal to inspection, nondistended, normoactive bowel sounds, soft to palpation, non-tender and non-distended Extremity normal to inspection Assessment & Plan Assessment/Plan (1) Colitis: PLAN: -Unclear if it is or ischemic related or infectious -Completed abx -Leukocytosis resolved -Continue p.o. diet as able -As needed antiemetics -Seems to be clinically improving with regards to this -Follow up with GI as outpt. (2) Hypokalemia: PLAN: improved replace (3) Leukocytosis: QUALIFIERS: Leukocytosis type: unspecified Qualified Code(s): D72.829 - Elevated white blood cell count, unspecified PLAN: Resolved 2/2 colitis (4) Lesion of pancreas: PLAN: -Patient with lesions in the liver and the pancreas -With regards to the pancreas it was recommended a 3-month follow-up -Follow-up CT with liver phase contrast was performed and no liver abnormality found -CA 19-9 pending (5) Hepatic lesion: PLAN: No mass seen on follow up CT. (6) Nausea & vomiting: PLAN: Had resolved but recurred on the seventh. Add Compazine (7) Debility: PLAN: 2/2 to underlying illness, advanced age and multiple medical comorbidities Needs some assistance with therapy. Would benefit from SNF. PLAN: Plan Chronic conditions: CAD/HTN/HPL/postoperative atrial fibrillation -History of bypass 11/04/2020 -Patient with no recent atrial fibrillation -Continue home aspirin -Continue home atorvastatin -Continue Plavix -Restart home Lasix GERD -Continue home Protonix Hypothyroidism -Continue home Mild cognitive impairment/vascular dementia/Alzheimer's type dementia -Per brother she was recently diagnosed with both vascular and Alzheimer's type dementia -Continue home Aricept -Brother feels she is no longer safe to go home -Would like to obtain placement at discharge however I do not feel that she will qualify for skilled facility and may need to do ECF route -Discussed with medical case manager and they will need to do more work on Wednesday or Wednesday of next week on this -Patient is agreeable to go somewhere Anxiety/depression -Continue home nortriptyline -Continue home escitalopram DVT prophylaxis -Lovenox daily CODE STATUS -full code To SNF pending insurance authorization. Patient has been stable for discharge since the second. Charges/Coding Visit Charges Inpatient E&M: 42479 Subs Hosp L2
[2022-05-30] MEDS: Ondansetron 4 MG/2 ML Vial IV ×2 (08:25→19:45)
[2022-05-30] MEDS: 0.9% Saline Lock 10 ML Syringe IV ×2 (08:25→19:45)
[2022-05-30] MEDS: Enoxaparin 30 MG/0.3 ML Syringe SC (09:59)
[2022-05-30] MEDS: Metoprolol(XL)Succ 25 MG Tablet PO (10:00)
[2022-05-30] MEDS: Pantoprazole Sodium 40 MG Tablet PO (10:00)
[2022-05-30] MEDS: Furosemide 40 MG Tablet PO ×2 (10:27→17:09)
[2022-05-30] MEDS: Aspirin E.C. 81 MG Tablet PO (10:28)
[2022-05-30] MEDS: Escitalopram Oxalate 10 MG Tablet PO (11:39)
[2022-05-30] MEDS: Nortriptyline 25 MG Capsule PO ×2 (11:39→21:03)
[2022-05-30] MEDS: Clopidogrel Bisulfate 75 MG Tablet PO (11:40)
[2022-05-30] MEDS: Potassium Chloride Oral Tablet 20 MEQ PO ×2 (13:03→21:03)
[2022-05-30] MEDS: Atorvastatin Calcium 80 MG Tablet PO (21:03)
[2022-05-30] MEDS: MELATONIN 10 MG TABLET PO (21:03)
[2022-05-30] MEDS: Donepezil HCl 5 MG Tablet PO (21:03)
[2022-05-31 03:25] VITALS: BP 115/86; PULSE 69; RESP 17; TEMP 36.7; O2SAT 97
[2022-05-31] MEDS: Levothyroxine 25 MCG TABLET PO (05:50)
--- NOTE | 2022-05-31 08:37 | PN.HOSP_ITS ---
Subjective Subjective Feels well. No further nausea. Objective Data Objective Data Vital Signs: Vital Signs Temp Pulse Resp BP Pulse Ox O2 Del Method O2 Flow Rate 36.7 C 69 17 115/86 H 97 Room Air 97 05/31/22 03:25 05/31/22 03:25 05/31/22 03:25 05/31/22 03:25 05/31/22 03:25 05/31/22 03:27 05/28/22 08:35 Oxygen Flow Rate (L/min) 97 Oxygen Delivery Method Room Air Weight: 70 kg Body Mass Index (BMI) 24.9 Intake & Output: Intake and Output for Last 24 Hours 05/29/22 05/30/22 05/31/22 23:59 23:59 23:59 Intake Total 240 / 240 300 / 300 240 / 240 Balance 240 / 240 300 / 300 240 / 240 Lab / Micro Data Result Diagrams: 05/24/22 06:52 05/25/22 05:35 Physical Exam Const alert and no apparent distress Assessment & Plan Assessment/Plan (1) Colitis: PLAN: -Unclear if it is or ischemic related or infectious -Completed abx -Leukocytosis resolved -Continue p.o. diet as able -As needed antiemetics -Seems to be clinically improving with regards to this -Follow up with GI as outpt. (2) Hypokalemia: PLAN: improved replace (3) Leukocytosis: QUALIFIERS: Leukocytosis type: unspecified Qualified Code(s): D72.829 - Elevated white blood cell count, unspecified PLAN: Resolved 2/2 colitis (4) Lesion of pancreas: PLAN: -Patient with lesions in the liver and the pancreas -With regards to the pancreas it was recommended a 3-month follow-up -Follow-up CT with liver phase contrast was performed and no liver abnormality found -CA 19-9 pending (5) Hepatic lesion: PLAN: No mass seen on follow up CT. (6) Nausea & vomiting: PLAN: Had resolved but recurred on the seventh. Add Compazine (7) Debility: PLAN: 2/2 to underlying illness, advanced age and multiple medical comorbidities Needs some assistance with therapy. Would benefit from SNF. PLAN: Plan Chronic conditions: CAD/HTN/HPL/postoperative atrial fibrillation -History of bypass 11/04/2020 -Patient with no recent atrial fibrillation -Continue home aspirin -Continue home atorvastatin -Continue Plavix -Restart home Lasix GERD -Continue home Protonix Hypothyroidism -Continue home Mild cognitive impairment/vascular dementia/Alzheimer's type dementia -Per brother she was recently diagnosed with both vascular and Alzheimer's type dementia -Continue home Aricept -Brother feels she is no longer safe to go home -Would like to obtain placement at discharge however I do not feel that she will qualify for skilled facility and may need to do ECF route -Discussed with case manager specialist and they will need to do more work on Wednesday or Wednesday of next week on this -Patient is agreeable to go somewhere Anxiety/depression -Continue home nortriptyline -Continue home escitalopram DVT prophylaxis -Lovenox daily CODE STATUS -full code To SNF pending insurance authorization. Patient has been stable for discharge since the 05/25/2022. Charges/Coding Visit Charges Inpatient E&M: 88004 Subs Hosp L1
[2022-05-31 08:45] VITALS: BP 129/66; PULSE 71; RESP 16; TEMP 36.6; O2SAT 98
[2022-05-31 10:35] VITALS: PULSE 71
[2022-05-31] MEDS: Pantoprazole Sodium 40 MG Tablet PO (10:35)
[2022-05-31] MEDS: Metoprolol(XL)Succ 25 MG Tablet PO (10:35)
[2022-05-31] MEDS: Clopidogrel Bisulfate 75 MG Tablet PO (10:35)
[2022-05-31] MEDS: Nortriptyline 25 MG Capsule PO ×2 (10:36→21:22)
[2022-05-31] MEDS: Potassium Chloride Oral Tablet 20 MEQ PO ×2 (10:36→21:22)
[2022-05-31] MEDS: Escitalopram Oxalate 10 MG Tablet PO (10:36)
[2022-05-31] MEDS: Furosemide 40 MG Tablet PO ×2 (10:36→17:11)
[2022-05-31] MEDS: Aspirin E.C. 81 MG Tablet PO (10:36)
[2022-05-31] MEDS: Enoxaparin 30 MG/0.3 ML Syringe SC (10:37)
[2022-05-31 14:04] VITALS: BP 129/60; PULSE 73; RESP 16; TEMP 36.8; O2SAT 94
[2022-05-31 20:00] VITALS: BP 139/84; PULSE 79; RESP 16; TEMP 36.4; O2SAT 96
[2022-05-31] MEDS: MELATONIN 10 MG TABLET PO (21:22)
[2022-05-31] MEDS: Donepezil HCl 5 MG Tablet PO (21:22)
[2022-05-31] MEDS: Atorvastatin Calcium 80 MG Tablet PO (21:22)
[2022-06-01] VITALS (8 sets, daily range): BP systolic 118–144; BP diastolic 64–77; PULSE 74–88; RESP 16–18; TEMP 36.6–36.8; O2SAT 94–100
[2022-06-01] MEDS: Levothyroxine 25 MCG TABLET PO (04:59)
[2022-06-01] MEDS: Aspirin E.C. 81 MG Tablet PO (09:13)
[2022-06-01] MEDS: Potassium Chloride Oral Tablet 20 MEQ PO ×2 (09:13→21:56)
[2022-06-01] MEDS: Nortriptyline 25 MG Capsule PO ×2 (09:13→21:56)
[2022-06-01] MEDS: Enoxaparin 30 MG/0.3 ML Syringe SC (09:13)
[2022-06-01] MEDS: Metoprolol(XL)Succ 25 MG Tablet PO (09:14)
[2022-06-01] MEDS: Clopidogrel Bisulfate 75 MG Tablet PO (09:16)
[2022-06-01] MEDS: Furosemide 40 MG Tablet PO ×2 (09:16→18:27)
[2022-06-01] MEDS: Escitalopram Oxalate 10 MG Tablet PO (09:16)
[2022-06-01] MEDS: Pantoprazole Sodium 40 MG Tablet PO (09:16)
--- NOTE | 2022-06-01 09:53 | CASEMGMT ---
Social Work SW received message from TM. Precert is still pending. PLAN: [facility], pending precert. RICHAR Hdez
--- NOTE | 2022-06-01 14:13 | CASEMGMT ---
Addendum entered by Lexie Hodgson 06/01/22 14:26: SWETHA called Ameena at [facility] to inform of pending plan. Ameena understandable. SW called pt Adolph WALLER to also inform of. Extensive conversation followed. SW offered education on insurance and reviews of therapy notes. SW explained pt has continued to make progress with therapy and insurance company is questioning the need for pt to go to SNF. SW discussed that family might have to look into private pay options, which family seemed opposed to. SWETHA explained a message was left with [facility] with contact information to review need for SNF. SW discussed intent to call pt family back with any newsm as it is received from [facility] or [facility]. RICHAR Hdez Original Note: Social Work Plaque Maker received message from Ameena at [facility]. Message included call from Dottie at [facility] ([phone]- option [phone]), requesting more information on why [facility]. SW called back the number provided (option 8 was not given so SW followed prompts in relation to SNF authorizations) and a recording informed approximate wait time was 1 hour and 25 minutes. SW opted to leave message with call back number. PLAN: [facility], pending precert RICHAR Hdez
--- NOTE | 2022-06-01 17:23 | PCM.PN.HOSP ---
Subjective Subjective Follow-up colitis, feeling fairly well, no complaints at this time Objective Data Objective Data Vital Signs: Vital Signs Temp Pulse Resp BP Pulse Ox O2 Del Method O2 Flow Rate 98.3 F 79 18 144/76 H 97 Room Air 97 06/01/22 15:54 06/01/22 15:54 06/01/22 15:54 06/01/22 15:54 06/01/22 15:54 06/01/22 15:54 05/28/22 08:35 Oxygen Flow Rate (L/min) 97 Oxygen Delivery Method Room Air Weight: 70 kg Body Mass Index (BMI) 24.9 Intake & Output: Intake and Output for Last 24 Hours 05/30/22 05/31/22 06/01/22 23:59 23:59 23:59 Intake Total 300 / 300 940 / 940 650 / 650 Output Total 0 / 0 Balance 300 / 300 940 / 940 650 / 650 Lab / Micro Data Result Diagrams: 05/24/22 06:52 05/25/22 05:35 Physical Exam Const alert and no apparent distress Constitutional Narrative: Oriented HEENT normocephalic and head/scalp atraumatic Eyes Eyes Narrative: EOM grossly intact, anicteric Neck supple Resp normal respiratory effort and clear to auscultation bilaterally Cardio regular rate and regular rhythm GI soft to palpation, non-tender and non-distended Extremity Extremity Narrative: No edema appreciated Neuro moves all extremities Neuro Narrative: No overt focal deficits appreciated Psych Psych Narrative: Cooperative Assessment & Plan Assessment/Plan (1) Colitis: (2) Lesion of pancreas: PLAN: Plan #Colitis Unclear if it was ischemic related or infectious but she has completed her antibiotics and leukocytosis has resolved As needed antiemetics though no nausea at this point Can follow-up outpatient with GI #Lesion of pancreas -With regards to the pancreas it was recommended a 3-month follow-up -Follow-up CT with liver phase contrast was performed and no liver abnormality found #Hepatic lesion: PLAN: No mass seen on follow up CT. Debility: PLAN: 2/2 to underlying illness, advanced age and multiple medical comorbidities Needs some assistance with therapy. Would benefit from SNF. Chronic conditions: CAD/HTN/HPL/postoperative atrial fibrillation -History of bypass 11/04/2020 -Patient with no recent atrial fibrillation -Continue home aspirin -Continue home atorvastatin -Continue Plavix -Restart home Lasix GERD -Continue home Protonix Hypothyroidism -Continue home med Mild cognitive impairment/vascular dementia/Alzheimer's type dementia -Per brother she was recently diagnosed with both vascular and Alzheimer's type dementia -Continue home Aricept -Brother feels she is no longer safe to go home dvt ppx: lovenox Charges/Coding Visit Charges Inpatient E&M: 89788 Subs Hosp L2
[2022-06-01] MEDS: MELATONIN 10 MG TABLET PO (21:56)
[2022-06-01] MEDS: Atorvastatin Calcium 80 MG Tablet PO (21:56)
[2022-06-01] MEDS: Donepezil HCl 5 MG Tablet PO (21:56)
[2022-06-02 03:05] VITALS: BP 133/70; PULSE 74; RESP 16; TEMP 36.5; O2SAT 95
[2022-06-02] MEDS: Levothyroxine 25 MCG TABLET PO (06:24)
[2022-06-02 07:23] LABS: Absolute Lymphocyte Count 1.08 X10^3/uL (0.83-4.51); Basophil# 0.07 X10^3/uL; Basophil% 1.2 % (0-1); Eosinophil# 0.19 X10^3/uL; Eosinophils% 3.1 % (0-5); Hematocrit 43.3 % (37-47); Hemoglobin 13.6 g/dL (12.0-15.0); Lymphocyte # 1.08 X10^3/ul (0.83-4.51); Lymphocyte % 17.8 % (19-41); Mean Corp Hgb Conc 31.4 g/dL (32-36); Mean Corpuscular Hgb 26.8 pg (27.0-32.0); Mean Corpuscular Volume 85.4 fL (81-99); Mean Platelet Vol. 11.4 fl (6.2-12.0); Monocyte# 0.72 X10^3/uL; Monocyte% 11.8 % (0-10); NRBC Flagged by Analyzer 0 % (0-5); Neutrophil # 3.98 X10^3/uL (2.7-7.7); Neutrophil % 65.4 % (47-70); Platelet Count 210 K/mm3 (150-450); RBC Distribution Width CV 14.9 % (11.6-14.6); RBC Distribution Width SD 46.9 fl (35.1-43.9); Red Blood Count 5.07 M/mm3 (4.2-5.4); White Blood Count 6.1 K/mm3 (4.4-11.0)
[2022-06-02 07:50] LABS: Anion Gap 7 (5-15); BUN 14 mg/dL (7-18); BUN/Creat Ratio 17.8 RATIO (10-20); Calcium,Total 9.1 mg/dL (8.5-10.1); Chloride 103 mmol/L (98-107); Creatinine, Serum 0.79 mg/dL (0.55-1.02); EST Glomerular Filtration Rate 75 mL/min (>60); Est Glom Filt Rate - Afr Amer 91 mL/min (>60); Glucose 113 mg/dL (74-106); Sodium Level 138 mmol/L (136-145)
--- NOTE | 2022-06-02 08:44 | CASEMGMT ---
Addendum entered by Lexie Hodgson 06/02/22 09:10: SWETHA called pt brother to inform of peer to peer offer. SWETHA shared MD Victor agreeable to completing call. Brother, Adolph asked what MD Victor will discuss with Clementemarisela. SWETHA informed cannot be sure what the discussion will hold but it will focus on physical therapy and pt's abilities or lack of. Adolph aware call will be placed before 1pm this day and SWETHA will call Adolph back once determination has been made. RICHAR Hdez Original Note: Social Work SW called [facility] this morning to discuss pt case. SWETHA spoke to Noreen. Noreen reviewed case and shared that [facility] is requesting a peer to peer phone call with pt's MD to be completed by 1pm this day. [phone] option 5. SWETHA informed Dr. Victor of the peer to peer request via [employer] and provided demographic information that will be requested at the time fo the call. PLAN: Await determination of peer to peer call RICHAR Hdez
[2022-06-02] MEDS: Aspirin E.C. 81 MG Tablet PO (08:49)
[2022-06-02 08:53] VITALS: PULSE 74
[2022-06-02] MEDS: Potassium Chloride Oral Tablet 20 MEQ PO (08:53)
[2022-06-02] MEDS: Metoprolol(XL)Succ 25 MG Tablet PO (08:53)
[2022-06-02] MEDS: Clopidogrel Bisulfate 75 MG Tablet PO (08:54)
[2022-06-02] MEDS: Pantoprazole Sodium 40 MG Tablet PO (08:54)
[2022-06-02] MEDS: Escitalopram Oxalate 10 MG Tablet PO (08:54)
[2022-06-02] MEDS: Nortriptyline 25 MG Capsule PO (08:54)
[2022-06-02] MEDS: Enoxaparin 30 MG/0.3 ML Syringe SC (08:54)
[2022-06-02] MEDS: Furosemide 40 MG Tablet PO (08:55)
[2022-06-02 09:33] VITALS: BP 146/67; PULSE 74; RESP 18; TEMP 36.7; O2SAT 98
--- NOTE | 2022-06-02 11:20 | PCM.PN.HOSP ---
Subjective Subjective Getting a shower today with assistance, overall still improving, no acute complaints at this time. Objective Data Objective Data Vital Signs: Vital Signs Temp Pulse Resp BP Pulse Ox O2 Del Method O2 Flow Rate 98.0 F 74 18 146/67 H 98 Room Air 97 06/02/22 09:33 06/02/22 09:33 06/02/22 09:33 06/02/22 09:33 06/02/22 09:33 06/02/22 09:34 05/28/22 08:35 Oxygen Flow Rate (L/min) 97 Oxygen Delivery Method Room Air Weight: 70 kg Body Mass Index (BMI) 24.9 Intake & Output: Intake and Output for Last 24 Hours 05/31/22 06/01/22 06/02/22 23:59 23:59 23:59 Intake Total 940 / 940 1350 / 1350 Output Total 0 / 0 Balance 940 / 940 1350 / 1350 Lab / Micro Data Result Diagrams: 06/02/22 06:25 06/02/22 06:25 Labs: Laboratory Results - last 24 hr 06/02/22 06:25: WBC 6.1, RBC 5.07, Hgb 13.6, Hct 43.3, MCV 85.4, MCH 26.8 L, MCHC 31.4 L, RDW Std Deviation 46.9 H, RDW Coeff of Kitty 14.9 H, Plt Count 210, MPV 11.4, Immature Gran % (Auto) 0.700, Neut % (Auto) 65.4, Lymph % (Auto) 17.8 L, [place] % (Auto) 11.8 H, Eos % (Auto) 3.1, Baso % (Auto) 1.2 H, Absolute Neuts (auto) 4.0, Absolute Lymphs (auto) 1.08, Nucleated RBC % 0 06/02/22 06:25: Sodium 138, Potassium 4.0, Chloride 103, Carbon Dioxide 28.0, Anion Gap 7, BUN 14, Creatinine 0.79, Estim Creat Clear Calc 44.80, Est GFR (MDRD) Af Amer 91, Est GFR (MDRD) Non-Af 75, BUN/Creatinine Ratio 17.8, Glucose 113 H, Calcium 9.1 Physical Exam Const alert and no apparent distress Constitutional Narrative: Oriented HEENT normocephalic and head/scalp atraumatic Eyes Eyes Narrative: EOM grossly intact, anicteric Neck supple Resp normal respiratory effort Cardio regular rate and regular rhythm GI non-distended Extremity Extremity Narrative: Up with help Neuro moves all extremities Neuro Narrative: No overt focal deficits appreciated Psych Psych Narrative: Cooperative Assessment & Plan Assessment/Plan (1) Colitis: (2) Lesion of pancreas: PLAN: Plan #Colitis Unclear if it was ischemic related or infectious but she has completed her antibiotics and leukocytosis has resolved As needed antiemetics though no nausea at this point Can follow-up outpatient with GI #Lesion of pancreas -With regards to the pancreas it was recommended a 3-month follow-up -Follow-up CT with liver phase contrast was performed and no liver abnormality found #Hepatic lesion: PLAN: No mass seen on follow up CT. Debility: PLAN: 2/2 to underlying illness, advanced age and multiple medical comorbidities Needs some assistance with therapy. Would benefit from SNF. Chronic conditions: CAD/HTN/HPL/postoperative atrial fibrillation -History of bypass 11/04/2020 -Patient with no recent atrial fibrillation -Continue home aspirin -Continue home atorvastatin -Continue Plavix -home lasix- labs rechecked 06/02 and stable GERD -Continue home Protonix Hypothyroidism -Continue home med Mild cognitive impairment/vascular dementia/Alzheimer's type dementia -Per brother she was recently diagnosed with both vascular and Alzheimer's type dementia -Continue home Aricept dvt ppx: lovenox MDM: Attempted Peer 2 Peer today but was denied d/t not meeting CMS criteria, will examine alternate options Charges/Coding Visit Charges Inpatient E&M: 80575 Subs Hosp L1
[2022-06-02 11:33] VITALS: BP 146/67; PULSE 74; RESP 16; TEMP 36.7; O2SAT 97
--- NOTE | 2022-06-02 13:19 | CASEMGMT ---
Social Work SW spoke to MD Victor regarding peer to peer. MD Victor informed [facility] has declined for pt to go to SNF. SW will call pt brother and POA, Adolph, to inform. SW previously spoke to Adolph this morning and discussed option of HHC. Lindsey BLACK CM gathered list for HHC options that SW can share with Adolph for pt d/c. SW will call Adolph to discuss. RICHAR Hdez
--- NOTE | 2022-06-02 13:47 | CASEMGMT ---
Social work SWETHA called pt brother, CHRISTIN Gaitan, to inform of peer to peer result. Adolph in shower, however Adolphs' Jinny answered the phone. SWETHA informed Jinny of determination for insurance not to pay for SNF placement. Jinny voiced understanding, stated family was prepared for this. SWETHA then discussed HHC choices with Jinny. A list of HHC providers including quality and resource use data and consistent with the patient?s preferred geographic region, medical needs, and insurance network from the [facility] Guide was read to Jinny over the phone. Jinny stated preference for pt would be [facility]. Jinny informed that Adolph and Jinny would be in this afternoon to knot picker cloth pt and assist with discharing home. SWETHA notified Lindsey BLACK CM of pt/family preference. [facility] to set up HHC. SWETHA informed MD Victor that family coming to assist with pt returning home. PLAN: Home with HHC RICHAR Hdez
--- NOTE | 2022-06-02 14:00 | CASEMGMT ---
Addendum entered by Lindsey Garcia 06/02/22 16:05: TC to Adolph WALLER to make aware that [facility] is still reviewing referral. He is aware that RN ALEKSANDRA will call him tomorrow to make aware of decision made. He states they are already active with [facility]. He is aware that this referral is for therapy. Addendum entered by Lindsey Garcia 06/02/22 16:02: TC to Nery to check on referral at [facility], still pending. Original Note: [facility] notified that pt son would like [facility]. TC to intake, left message with referral, awaiting acceptance.
--- NOTE | 2022-06-02 14:40 | DCINST_ITS ---
Discharge Instructions Diet Discharge Diet: - (Cardiac diet) Activity Discharge Activity: Return to Normal Activity Follow Up Care Test Results: Test results from this visit will be discussed in further detail at your follow- up appointment, if applicable. Discharge Plan Admission Admit Date/Time: 05/22/22 18:44 Primary Reason for Your Visit: colitis Attending Provider: Betsy Victor Primary Care Provider: Alisson Armenta Consulting Providers: Jamir Ley ; Gisela Chandler ; Chano Henao Instructions Additional Instructions / Restrictions: *Please take this with you to your next doctors appointment* DISCHARGE INSTRUCTIONS PLEASE READ ?Please continue your home medications ?You have completed a course of antibiotics for inflammation in your colon. ? Please follow-up follow-up with gastroenterology, Dr. Heath, on discharge for your colitis. Contact information provided, please call to schedule an appointment ?On your imaging of your stomach there was a small density noticed in your pancreas without any well-defined mass it is recommended that you have a follow- up CT abdomen pelvis pancreas protocol in 3 months, this will need to be ordered through your primary care physician. Additionally there were several small cysts your right kidney, they are very small in size and you can have a dedicated ultrasound as an outpatient through your primary care physician's office. ? Please take this with you to your doctors appointment so they are aware of these findings and can follow-up as appropriate -Please call your primary care provider's office upon discharge to schedule a hospital follow up within 1 week. -For any concerning signs or symptoms please call 911 or proceed to the nearest emergency department Discharge Orders/Prescriptions Prescriptions: Continued celecoxib [Celebrex] 200 mg capsule 200 mg PO DAILY PRN (Reason: Pain) benzonatate 100 mg capsule 100 mg PO TID PRN (Reason: Cough) nortriptyline 25 mg capsule 25 mg PO BID cholecalciferol (vitamin D3) 25 mcg (1,000 unit) Capsule 25 mcg PO DAILY pantoprazole 40 mg tablet,delayed release (DR/EC) 40 mg PO DAILY Label Comments: TAKE 1 TABLET BY MOUTH ONCE DAILY IN THE MORNING escitalopram oxalate 10 mg tablet 10 mg PO DAILY Label Comments: TAKE 1 TABLET BY MOUTH ONCE DAILY IN THE MORNING acetaminophen 500 mg Capsule 1,000 mg PO Q8H PRN (Reason: Pain, Moderate) melatonin 10 mg capsule 10 mg PO/SL QHS atorvastatin 80 mg tablet 80 mg PO QHS levothyroxine 25 mcg tablet 25 mcg PO DAILY donepezil [Aricept] 5 mg Tablet 5 mg PO DAILY ondansetron HCl 4 mg Tablet 4 mg PO Q6H PRN (Reason: Nausea) cyanocobalamin (vitamin B-12) 1,000 mcg Capsule 1,000 mcg PO DAILY furosemide 40 mg tablet 40 mg PO BID Qty: 180 3RF aspirin [Adult Aspirin Regimen] 81 mg tablet,delayed release (DR/EC) 81 mg PO DAILY metoprolol succinate 50 mg tablet extended release 24 hr 25 mg PO DAILY Qty: 30 11RF clopidogrel 75 mg tablet 75 mg PO DAILY Qty: 90 3RF potassium chloride 10 mEq tablet extended release 20 meq PO BID Qty: 120 11RF Discontinued doxycycline hyclate 100 mg Tablet 100 mg PO BID Rx Instructions: Started 05/14/22 take for 10 days. Referrals / Follow Up: Alisson Armenta MD [Primary Care Provider] - Within 2 Weeks Jose Heath DO [Med Staff - Active Staff] - Within 1 Month Disposition Disposition (needs filled in before D/C Order can be placed): Home Health Service
--- NOTE | 2022-06-02 14:46 | DS.PCM_ITS ---
Providers Date of Admission: 05/22/22 Date of Discharge: 06/02/22 Primary Care Physician: Dr. Alisson Armenta MD Reason For Visit: INFECTIOUS COLITIS Diagnosis Discharge Diagnosis (1) Colitis: Status: Acute Code(s): K52.9 - Noninfective gastroenteritis and colitis, unspecified (2) Lesion of pancreas: Status: Acute Code(s): K86.9 - Disease of pancreas, unspecified Plan #Colitis #Lesion of pancreas Debility: Chronic conditions: CAD/HTN/HPL/postoperative atrial fibrillation GERD Hypothyroidism Mild cognitive impairment/vascular dementia/Alzheimer's type dementia Medications at Discharge Home Medications cholecalciferol (vitamin D3) 25 mcg (1,000 unit) capsule 25 mcg PO DAILY supplement 10/30/20 escitalopram oxalate 10 mg tablet 10 mg PO DAILY anxiety 01/02/21 pantoprazole 40 mg tablet,delayed release 40 mg PO DAILY gerd 01/02/21 atorvastatin 80 mg tablet 80 mg PO QHS CHOLESTEROL 04/09/21 levothyroxine 25 mcg tablet 25 mcg PO DAILY THYROID 04/09/21 celecoxib 200 mg capsule (Celebrex) 200 mg PO DAILY PRN Pain 05/09/21 acetaminophen 500 mg capsule 1,000 mg PO Q8H PRN Pain, Moderate 05/14/21 furosemide 40 mg tablet 40 mg PO BID #180 tabs 06/09/21 aspirin 81 mg tablet,delayed release (Adult Aspirin Regimen) 81 mg PO DAILY 07/09/21 metoprolol succinate 50 mg tablet,extended release 24 hr 25 mg PO DAILY #30 tabs 07/10/21 clopidogrel 75 mg tablet 75 mg PO DAILY #90 tabs 09/04/21 benzonatate 100 mg capsule 100 mg PO TID PRN Cough 12/22/21 nortriptyline 25 mg capsule 25 mg PO BID 12/22/21 melatonin 10 mg PO/SL QHS 12/23/21 potassium chloride 10 mEq tablet,extended release 20 meq PO BID Pt needs 10 meq pills to swallow easier #120 tabs 01/07/22 cyanocobalamin (vitamin B-12) 1,000 mcg capsule 1,000 mcg PO DAILY 05/22/22 donepezil 5 mg tablet (Aricept) 5 mg PO DAILY 05/22/22 ondansetron HCl 4 mg tablet 4 mg PO Q6H PRN Nausea 05/22/22 Hospital Course Summary of Care Provided Minutes Spent on Discharge: 35 Hospital Course: 76-year-old female with a history of hypertension, cognitive impairment, osteoarthritis, paroxysmal atrial fibrillation presented to [facility] 05/22/2022 after being sent from her neurologist's office for abdominal pain over the previous 24 to 48 hours. She was afebrile but had slight leukocytosis and been having some episodes of vomiting and intermittent diarrhea for [address] scan showed descending colitis and she also had area in the pancreatic head concerning for inflammation versus mass and CT recommended in 3 months. She was treated with Cipro and Flagyl on diet advanced. It was unclear if her colitis was ischemic or infectious but it did improve on Cipro and Flagyl which she took for a total of 7 days. Due to her functional status placement was sought but this was refused by insurance. Attempted peer to peer but it was rejected. Ultimately family willing to take her home. On day of discharge she denied any physical complaints. Discharge instructions as followed: ?Please continue your home medications ?You have completed a course of antibiotics for inflammation in your colon. ? Please follow-up follow-up with gastroenterology, Dr. Heath, on discharge for your colitis.? Contact information provided, please call to schedule an appointment ?On your imaging of your stomach there was a small density noticed in your pancreas without any well-defined mass it is recommended that you have a follow- up CT abdomen pelvis pancreas protocol in 3 months, this will need to be ordered through your primary care physician.? Additionally there were several small cysts your right kidney, they are very small in size and you can have a dedi cated ultrasound as an outpatient through your primary care physician's office. ? Please take this with you to your doctors appointment so they are aware of these findings and can follow-up as appropriate -Please call your primary care provider's office upon discharge to schedule a hospital follow up within 1 week. -For any concerning signs or symptoms please call 911 or proceed to the nearest emergency department Physical Exam Const alert and no apparent distress Constitutional Narrative: Oriented HEENT normocephalic and head/scalp atraumatic Eyes Eyes Narrative: EOM grossly intact, anicteric Neck supple Resp normal respiratory effort Cardio regular rate and regular rhythm GI non-distended Extremity Extremity Narrative: Up with help Neuro moves all extremities Neuro Narrative: No overt focal deficits appreciated Psych Psych Narrative: Cooperative Weight / BMI Weight Weight: 70 kg Body Mass Index (BMI) 24.9 ABG / Lab / Microbiology Data Result Diagrams: 06/02/22 06:25 06/02/22 06:25 Laboratory: Laboratory Results - last 24 hr 06/02/22 06:25: WBC 6.1, RBC 5.07, Hgb 13.6, Hct 43.3, MCV 85.4, MCH 26.8 L, MCHC 31.4 L, RDW Std Deviation 46.9 H, RDW Coeff of Kitty 14.9 H, Plt Count 210, MPV 11.4, Immature Gran % (Auto) 0.700, Neut % (Auto) 65.4, Lymph % (Auto) 17.8 L, Barrow % (Auto) 11.8 H, Eos % (Auto) 3.1, Baso % (Auto) 1.2 H, Absolute Neuts (auto) 4.0, Absolute Lymphs (auto) 1.08, Nucleated RBC % 0 06/02/22 06:25: Sodium 138, Potassium 4.0, Chloride 103, Carbon Dioxide 28.0, Anion Gap 7, BUN 14, Creatinine 0.79, Estim Creat Clear Calc 44.80, Est GFR (MDRD) Af Amer 91, Est GFR (MDRD) Non-Af 75, BUN/Creatinine Ratio 17.8, Glucose 113 H, Calcium 9.1 D/C Instructions Discharge Diet: - (Cardiac diet) Meaningful Use Info Meaningful Use Diagnoses (Choose all that apply): None applicable Discharge Plan Admission Admit Date/Time: 05/22/22 18:44 Primary Reason for Your Visit: colitis Attending Provider: Besty Victor Primary Care Provider: Alisson Armenta Consulting Providers: Jamir Ley ; Gisela Chandler ; Chano Henao Instructions Additional Instructions / Restrictions: *Please take this with you to your next doctors appointment* DISCHARGE INSTRUCTIONS PLEASE READ ?Please continue your home medications ?You have completed a course of antibiotics for inflammation in your colon. ? Please follow-up follow-up with gastroenterology, Dr. Heath, on discharge for your colitis. Contact information provided, please call to schedule an appointment ?On your imaging of your stomach there was a small density noticed in your pancreas without any well-defined mass it is recommended that you have a follow- up CT abdomen pelvis pancreas protocol in 3 months, this will need to be ordered through your primary care physician. Additionally there were several small cysts your right kidney, they are very small in size and you can have a dedicated ultrasound as an outpatient through your primary care physician's office. ? Please take this with you to your doctors appointment so they are aware of these findings and can follow-up as appropriate -Please call your primary care provider's office upon discharge to schedule a hospital follow up within 1 week. -For any concerning signs or symptoms please call 911 or proceed to the nearest emergency department Discharge Orders/Prescriptions Prescriptions: Continued celecoxib [Celebrex] 200 mg capsule 200 mg PO DAILY PRN (Reason: Pain) benzonatate 100 mg capsule 100 mg PO TID PRN (Reason: Cough) nortriptyline 25 mg capsule 25 mg PO BID cholecalciferol (vitamin D3) 25 mcg (1,000 unit) Capsule 25 mcg PO DAILY pantoprazole 40 mg tablet,delayed release (DR/EC) 40 mg PO DAILY Label Comments: TAKE 1 TABLET BY MOUTH ONCE DAILY IN THE MORNING escitalopram oxalate 10 mg tablet 10 mg PO DAILY Label Comments: TAKE 1 TABLET BY MOUTH ONCE DAILY IN THE MORNING acetaminophen 500 mg Capsule 1,000 mg PO Q8H PRN (Reason: Pain, Moderate) melatonin 10 mg capsule 10 mg PO/SL QHS atorvastatin 80 mg tablet 80 mg PO QHS levothyroxine 25 mcg tablet 25 mcg PO DAILY donepezil [Aricept] 5 mg Tablet 5 mg PO DAILY ondansetron HCl 4 mg Tablet 4 mg PO Q6H PRN (Reason: Nausea) cyanocobalamin (vitamin B-12) 1,000 mcg Capsule 1,000 mcg PO DAILY furosemide 40 mg tablet 40 mg PO BID Qty: 180 3RF aspirin [Adult Aspirin Regimen] 81 mg tablet,delayed release (DR/EC) 81 mg PO DAILY metoprolol succinate 50 mg tablet extended release 24 hr 25 mg PO DAILY Qty: 30 11RF clopidogrel 75 mg tablet 75 mg PO DAILY Qty: 90 3RF potassium chloride 10 mEq tablet extended release 20 meq PO BID Qty: 120 11RF Discontinued doxycycline hyclate 100 mg Tablet 100 mg PO BID Rx Instructions: Started 05/14/22 take for 10 days. Referrals / Follow Up: Alisson Armenta MD [Primary Care Provider] - Within 2 Weeks Friend,Jose, DO [Med Staff - Active Staff] - Within 1 Month Disposition Disposition (needs filled in before D/C Order can be placed): Home Health Service Charges/Coding Visit Charges Inpatient E&M: 36924 Disch Hosp >30min
[2022-06-02 15:04] VITALS: BP 139/65; PULSE 79; RESP 18; TEMP 36.3; O2SAT 97
[2022-06-02 16:41] VITALS: BP 139/65; PULSE 79; RESP 18; TEMP 36.3; O2SAT 97
--- NOTE | 2022-06-03 09:07 | CASEMGMT ---
Received acceptance from Nery at [facility]. They will see pt today or tomorrow. TC to pt brother Adolph and left message regarding this. Asked Nery to contact Adolph for initial visit.
== END 2022-06-02 16:50 | disposition home health service (06) ==
LOC: ED 18:21 → MS3 18:58
PROVIDERS: Internal Medicine; Admitting Provider Family Medicine; Emergency Provider Emergency Medicine; PCP Internal Medicine; Visit Provider Internal Medicine
DX: K52.9 Noninfective gastroenteritis and colitis, unspecified (principal); G30.9 Alzheimer's disease, unspecified; F02.80 Dementia in other diseases classified elsewhere, unspecified severity, without behavioral disturbance, psychotic disturbance, mood disturbance, and anxiety; F01.50 Vascular dementia, unspecified severity, without behavioral disturbance, psychotic disturbance, mood disturbance, and anxiety; I48.0 Paroxysmal atrial fibrillation; Z79.02 Long term (current) use of antithrombotics/antiplatelets; E78.5 Hyperlipidemia, unspecified; K76.9 Liver disease, unspecified; K86.89 Other specified diseases of pancreas; R53.81 Other malaise; I10 Essential (primary) hypertension; D72.829 Elevated white blood cell count, unspecified; E87.6 Hypokalemia; I25.10 Atherosclerotic heart disease of native coronary artery without angina pectoris; Z79.899 Other long term (current) drug therapy; Z79.890 Hormone replacement therapy; E03.9 Hypothyroidism, unspecified; K21.9 Gastro-esophageal reflux disease without esophagitis; Z95.1 Presence of aortocoronary bypass graft; I25.2 Old myocardial infarction; H53.462 Homonymous bilateral field defects, left side; I69.398 Other sequelae of cerebral infarction; F41.9 Anxiety disorder, unspecified; F32.A Depression, unspecified; Z79.82 Long term (current) use of aspirin
CPT/HCPCS: 36415; 74170; 74177; 80048; 80076; 81001; 83690; 84132; 85025; 86301; 96361; 96365; 96366; 96367; 96372; 96375; 96376; 97110; 97116; 97162; 97166; 97530; 97535; 97802; 97803; 99221; 99285; J7030; J7050; Q9967; A4216; G0378; J0744; J2405

== ENCOUNTER → 2022-08-04 | Outpatient (CLI) | payer MEDICARE, SELFPAY ==
--- NOTE | 2022-08-04 12:21 | CT_ITS ---
STUDY: CT ABDOMEN AND PELVIS WITH CONTRAST REASON FOR EXAM: Female, 76 years old. Acute abdominal pain, fever and tenderness RADIATION DOSAGE (If Supplied By Facility): CTDIvol = ( 13.42 ) mGy, DLP = ( 856.66 ) mGycm TECHNIQUE: Transaxial images were obtained from the dome of the diaphragm to the symphysis pubis with oral contrast. Oral and amp; IV Gastrografin and amp; 75mL Isovue-370 was administered. Sagittal and coronal images were reconstructed. Individualized dose optimization techniques were used for this CT. COMPARISON: 05/23/2022 FINDINGS: There are chronic interstitial fibrotic changes of the lung bases. Remote CABG Normal liver. Normal gallbladder and extrahepatic biliary system. Normal spleen. Normal pancreas. Normal bilateral adrenal glands. No obstructive uropathy, or suspicious solid renal lesion, stable subcentimeter cortical cysts in both kidneys. Normal visualized stomach, hyperdensities within the stomach likely represent ingested medication. Nondistended contrast-filled small and large bowel loops suggest diffuse enteritis. No CT evidence of an acute inflammatory process. No pericolonic or inflammatory stranding within the mesentery. There is non-visualization of the appendix. Normal abdominal aorta. Normal inferior vena cava. Normal retroperitoneum. Normal urinary bladder. Uterus is present, the endometrium cannot be adequately evaluated with CT. No suspicious cystic mass or free fluid Normal abdominal wall. Mild degenerative bony changes. CT/Abdomen/Pelvis WITH Contrast IMPRESSION: Nondistended contrast-filled small and large bowel loops throughout the abdomen consistent with diffuse enteritis. No perforation or abscess No suspicious solid organomegaly, stable simple renal cysts, no specific follow-up needed. No free peritoneal fluid, air, or suspicious adenopathy Uterus is present, the endometrium cannot be adequately evaluated with CT. No suspicious cystic mass or free fluid Electronically Signed: Alex Al MD at 7:57 EDT ,
[2022-08-04 15:01] LABS: CREATININE FINGERSTICK < 0.9 mg/dL (0.55-1.02); EGFR FINGERSTICK > 60.0000 mL/min (>60)
== END | disposition home or self-care (01) ==
LOC: CT 12:19
PROVIDERS: PCP Internal Medicine; Referring Provider Internal Medicine; Visit Provider Internal Medicine
DX: K52.9 Noninfective gastroenteritis and colitis, unspecified (principal); K65.9 Peritonitis, unspecified; K86.9 Disease of pancreas, unspecified
CPT/HCPCS: 74177; Q9967

== ENCOUNTER → 2022-08-28 | Outpatient (CLI) | payer MEDICARE, SELFPAY | END | disposition home or self-care (01) | LOC: LAB 10:31 | PROVIDERS: PCP Internal Medicine; Referring Provider Internal Medicine Gastroenterology; Visit Provider Internal Medicine Gastroenterology | DX: Z00.00 Encounter for general adult medical examination without abnormal findings (principal) | CPT/HCPCS: 36415; 82150; 82164; 82784; 82787; 82977; 83036; 83516; 83615; 83690; 84165; 84443; 86140; 86160; 86162; 86225; 86235; 86255; 86256; 86301; 86334 ==

== ENCOUNTER 2022-09-02 11:33 | Outpatient (CLI) | payer MEDICARE, SELFPAY ==
[2022-09-02 13:00] LABS: Hemoglobin A1c 5.7 % (3.8-5.6)
[2022-09-02 13:50] LABS: Amylase 54 U/L (25-115); CRP < 2.90 mg/L (0.0-3.0); GGTP 30 U/L (5-55); LDH 170 U/L (84-246); Lipase 31 U/L (13-75); Thyroid Stim Hormone (TSH) 1.97 uIU/mL (0.358-3.74)
[2022-09-03 13:08] LABS: Anti-Centromere B Ab 0.4 AI (0.0-0.9); Anti-Chromatin 2.7 AI (0.0-0.9); Anti-Jo <0.2 AI (0.0-0.9); Anti-Scleroderma-70 AB 0.3 AI (0.0-0.9); RNP Ab <0.2 AI (0.0-0.9); SJOGREN'S Anti-SS-A test < 0.2 AI (0.0-0.9); SJOGREN'S Anti-SS-B test < 0.2 AI (0.0-0.9); Smith Ab <0.2 AI (0.0-0.9)
[2022-09-03 14:09] LABS: Endomysial Antibody IgA Negative (Negative)
[2022-09-03 18:52] LABS: Immunoglobulin A 341 mg/dL (64-422); t-Transglutaminase IgA <2 U/mL (0-3)
[2022-09-03 18:53] LABS: Anti-dsDNA Ab 1 IU/mL (0-9)
[2022-09-04 08:10] LABS: Albumin 3.5 g/dL (2.9-4.4); Alpha-1-Globulins 0.3 g/dL (0.0-0.4); Alpha-2-Globulins 0.9 g/dL (0.4-1.0); Angiotensin Convert Enzyme 59 U/L (14-82); Complement C3 163 mg/dL (82-167); Cytoplasmic Ab (C-ANCA) <1:20 titer (Neg:<1:20); Gamma Globulin 1.2 g/dL (0.4-1.8); IgG, Quant 1176 mg/dL (586-1602); Immunoglobulin A 358 mg/dL (64-422); Immunoglobulin G, Subclass 1 750 mg/dL (248-810); Immunoglobulin G, Subclass 2 197 mg/dL (130-555); Immunoglobulin G, Subclass 3 51 mg/dL (15-102); Immunoglobulin G, Subclass 4 32 mg/dL (2-96); Immunoglobulin M 101 mg/dL (26-217)
[2022-09-04 10:47] LABS: Carbohydrate Ag 19-9 2261 14 U/mL (0-35); Complement CH50 > 60 U/mL (>41)
[2022-09-04 10:54] LABS: Immunoglobulin G 1176
== END 2022-09-02 23:59 | disposition home or self-care (01) ==
LOC: LAB 11:35
PROVIDERS: PCP Internal Medicine; Referring Provider Internal Medicine Gastroenterology; Visit Provider Internal Medicine Gastroenterology
DX: K86.9 Disease of pancreas, unspecified (principal); R73.09 Other abnormal glucose; R94.6 Abnormal results of thyroid function studies; E78.5 Hyperlipidemia, unspecified; D37.8 Neoplasm of uncertain behavior of other specified digestive organs
CPT/HCPCS: 36415; 82150; 82164; 82784; 82787; 82977; 83036; 83516; 83615; 83690; 84165; 84443; 86140; 86160; 86162; 86225; 86235; 86255; 86256; 86301; 86334

== ENCOUNTER → 2022-09-09 | Outpatient (CLI) | payer MEDICARE, SELFPAY ==
--- NOTE | 2022-09-09 13:21 | MRI_ITS ---
EXAM: MR ABDOMEN WITHOUT INTRAVENOUS CONTRAST, MRCP PROTOCOL CLINICAL INDICATION: pancreatic lesion TECHNIQUE: Multiplanar and multisequence MR images of the abdomen without intravenous contrast obtained with MRCP sequence. Three-dimensional post-processing reconstructions were performed. This report was created using [employer] report generation technology. COMPARISON: CT 08/04/2022, 05/23/2022. FINDINGS: LOWER THORAX: Unremarkable. No pleural effusion. LIVER: Unremarkable. Normal morphology. GALLBLADDER AND BILE DUCTS: Unremarkable. No gallstones. No gallbladder distention or wall edema. No intra- or extrahepatic biliary ductal dilation. No choledochal filling defect. PANCREAS: No biliary dilation. No cystic or solid pancreatic lesions are identified, although evaluation is inhibited given lack of dedicated pancreatic protocol/IV contrast. SPLEEN: Unremarkable. Non-enlarged. ADRENALS: Unremarkable. No nodules. KIDNEYS AND URETERS: Unremarkable. Normal renal size and position. No hydronephrosis. INTRAPERITONEAL SPACE: Unremarkable. No ascites or other fluid collection. VASCULATURE: Unremarkable. Abdominal aorta is non-dilated. LYMPH NODES: No enlarged lymph nodes. MRI/MRCP Abdomen without Contrast IMPRESSION: 1. Unremarkable MRCP. 2. No cystic or solid pancreatic lesions are identified, although evaluation is inhibited given lack of dedicated pancreatic protocol/IV contrast. Electronically Signed: Rubén Pyle (Brooks), at 18:15 EDT ,
== END | disposition home or self-care (01) ==
PROVIDERS: PCP Internal Medicine; Referring Provider Internal Medicine Gastroenterology; Visit Provider Internal Medicine Gastroenterology
DX: R10.9 Unspecified abdominal pain (principal); K86.89 Other specified diseases of pancreas; K86.9 Disease of pancreas, unspecified
CPT/HCPCS: 36415; 74181

== ENCOUNTER 2022-10-15 11:00 | Outpatient (RCR) | payer MEDICARE, SELFPAY ==
--- NOTE | 2022-07-13 13:26 | HP.PTEVAL_ITS ---
Patient's Visit Information LAVELLE RUEDA is a 76 year old F referred to Physical Therapy by Alisson Armenta MD with a diagnosis of GAIT DIFFICULTY ,GENERALIZED WEAKNESS ,COLITIS. Date of Evaluation: 07/13/22 Physical Therapist: Emilio Rangel, PT, Cert MDT, OCS - Visit Plan Frequency: 2x /Week Duration: 4 Weeks Plan: PT INTERVETIONS WITH PROGRESSIVE BALANCE STRENGTENING , BLE STRENGTHENING ,FUNCTIONAL STRENGTHENING AND ENDURANCE PRORAM - Subjective This 76 y/o female presents to physical therapy to gait difficulty and weakness . 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 Patient has left side neglect then in Apr 2022 found to have colitis hospitalized ~ 10 days at [facility] then D/C Jun 02. Patient has dementia. Patient d/c to home with [employer] 2 hrs day and has friend . Patient lives in 2 story home stays on 1st floor with 5steps in entrance. Patient has seat and bars in shower and toilet. Patient has rollator and life alert. Patient has supervision with bathing and dressing. [employer] assist with cooking. Patient has being seeing [facility] PT/OT for 3weeks. Patient has no falls. Patient has generalized weakness with legs and getting tired. Patient has difficulty with extended distances. Patient denies pain .Patient sleeping good. Denies paresthesia/tingling. Patient Patient symptoms with QOL and function. SPOCIAL: lives alone but has [employer] - Objective POSTURE : mild forward posture. GAIT: ambulates with rollator with reciprocal pattern slow ezio. SYMMTRIES : align. PALPTAION: unremarkable. MMT: quads/hams 4-/5 ,hip flexion 3+/5 ,ankle 4/5. BALANCE: fair+ with fww. AROM: BUE WFL - Balance/Special Test Scores CATSIB Score (Max score 120 seconds): 85 Lower Extremity Functional Score: 24 30 Second Chair Rise Test Seconds: 8 - Goals Goal 1:: Patient to be I with HEP for strengthening Goal Time Frame: 4-6 Weeks Goal 2:: Patient increase strength BLE to 4/5 to improve gait Goal Time Frame: 4-6 Weeks Goal 3:: Patient to improve CATSIBE by 5 points to improve balance. Goal Time Frame: 4-6 Weeks Goal 4:: Patient to improve 30sec chair stand by 10 to improve endurance and function Goal Time Frame: 4-6 Weeks Goal 5:: Patient to improve LFES by 5 points to improve balance Goal Time Frame: 4-6 Weeks - Rehabilitation Potential Physical Therapy Diagnosis: This 76 y/o female has comorbities affects function with recent CABG X4 ,CVA causing left side neglect ,dementia and generalized weakness ,balance deficits along with endurance thus benefit from skilled PT Rehabilitation Potential: Good - Anticipated Interventions Patient/Client Instruction: Educate patient on: Condition, Plan of Care For the Purpose of:: To decrease pain, To increase ROM, To improve muscle performance and motor function, To improve ability to perform ADL's, To increase tolerance to activity/condition/position, To improve performance and independence with ADL's, To improve ability of physical actions for home/community/work/leisure, To improve health of tissue, To decrease soft tissue restriction, To increase flexibility/ROM Therapeutic Exercise to Include: Strength training, Endurance training, Balance training, Gait and locomotor training, Active ROM Comment: BLE For the Purpose of:: To decrease pain, To improve muscle performance and motor function, To improve ability to perform ADL's, To increase tolerance to activity/condition/position, To improve ability of physical actions for home/community/work/leisure, To improve gait and locomotor functions, To increase flexibility/ROM, To reduce risk of recurrence, To improve tolerance to ADL's Thank you for the opportunity to evaluate your patient. For Medicare and Medicare HMO plans, please review the plan of care and approve it. It will need to be FAXED BACK to us at [phone] for Medicare purposes. For Medicare only, by signing this I certify the plan of care. Please let me know if there are questions or concerns regarding this plan of care. Physician Signature: Dat e:
--- NOTE | 2022-08-31 11:57 | HP.PTREVAL_ITS ---
Alisson Armenta MD, It has been my pleasure to treat LAVELLE RUEDA over the last 13 visits for GAIT DIFFICULTY ,GENERALIZED WEAKNESS ,COLITIS. Please see the progress note below for an update on the physical therapy plan of care! Subjective: Doing well Objective/Function: POSTURE : mild forward posture. GAIT: ambulates with ro llator with reciprocal pattern slow ezio. SYMMTRIES : align. PALPTAION: unremarkable. MMT: quads/hams 4-/5 ,hip flexion 4-/5,ankle 4/5. BALANCE: fair+ with fww Plan Plan: Requesting 8 more visits. PT INTERVETIONS WITH PROGRESSIVE BALANCE STRENGTENING , BLE STRENGTHENING ,FUNCTIONAL STRENGTHENING AND ENDURANCE PRORAM Balance/Gait/Functional tests - Balance/Special Test Scores CATSIB Score (Max score 120 seconds): 92 Lower Extremity Functional Score: 29 TUG Test Time Seconds: 12.10 Tug Test: <20 sec.=mostly independent 30 Second Chair Rise Test Seconds: 13 Goals Goal 1:: Patient to be I with HEP for strengthening Goal Time Frame: 4-6 Weeks Goal Progress: Progressing Goal 2:: Patient increase strength BLE to 4/5 to improve gait Goal Time Frame: 4-6 Weeks Goal Progress: Progressing Goal 3:: Patient to improve CATSIBE by 5 points to improve balance. Goal Time Frame: 4-6 Weeks Goal Progress: Progressing Goal 4:: Patient to improve 30sec chair stand by 3-5 to improve endurance and function Goal Time Frame: 4-6 Weeks Goal Progress: Progressing Goal 5:: Patient to improve LFES by 5 points to improve balance( new goal) Goal Time Frame: 4-6 Weeks Anticipated Interventions Patient/Client Instruction: Educate patient on: Condition, Plan of Care For the Purpose of:: To decrease pain, To increase ROM, To improve muscle performance and motor function, To improve ability to perform ADL's, To increase tolerance to activity/condition/position, To improve performance and independence with ADL's, To improve ability of physical actions for home/commun ity/work/leisure, To improve health of tissue, To decrease soft tissue restriction, To increase flexibility/ROM Therapeutic Exercise to Include: Strength training, Endurance training, Balance training, Gait and locomotor training, Active ROM Comment: BLE For the Purpose of:: To decrease pain, To improve muscle performance and motor function, To improve ability to perform ADL's, To increase tolerance to activity/condition/position, To improve ability of physical actions for home/community/work/leisure, To improve gait and locomotor functions, To increase flexibility/ROM, To reduce risk of recurrence, To improve tolerance to ADL's Please do not hesitate to contact me at [phone] by phone or if you have questions or concerns regarding this new plan of care! Sincerely, Emilio Rangel, PT, Cert MDT, OCS
--- NOTE | 2022-12-28 11:47 | HP.PTDCNRP_ITS ---
Patient Information Patient Information: LAVELLE RUEDA was seen in my office for initial evaluation on 07/13/22. The following Plan of Care was established for this patient: POC Established Initial Frequency: 2x /Week Initial Duration: 4 Weeks Anticipated Interventions Patient/Client Instruction: Educate patient on: Condition and Plan of Care For the Purpose of:: To decrease pain, To increase ROM, To improve muscle performance and motor function, To improve ability to perform ADL's, To increase tolerance to activity/condition/position, To improve performance and ind ependence with ADL's, To improve ability of physical actions for home/community/work/leisure, To improve health of tissue, To decrease soft tissue restriction and To increase flexibility/ROM Therapeutic Exercise to Include: Strength training, Endurance training, Balance training, Gait and locomotor training and Active ROM For the Purpose of:: To decrease pain, To improve muscle performance and motor function, To improve ability to perform ADL's, To increase tolerance to activity/condition/position, To improve ability of physical actions for home/ community/work/leisure, To improve gait and locomotor functions, To increase flexibility/ROM, To reduce risk of recurrence and To improve tolerance to ADL's Last Seen Last Seen: This patient was last seen in our office . Pertinent comments regarding their Physical therapy will appear below: Patient was seen for PT for strengthening and balance program. Patient progressing with improving strengthening thus d/c At this point I will be discontinuing this patient from physical therapy. I would be happy to see this patient again in the future if found appropriate by the physician. Thank you! Emilio Rangel, PT, Cert MDT, OCS Balance/Gait/Functional tests Balance/Special Test Scores CATSIB Score (Max score 120 seconds): 92 Lower Extremity Functional Score: 29 TUG Test Time Seconds: 12.10 Tug Test: <20 sec.=mostly independent 30 Second Chair Rise Test Seconds: 13
== END 2022-10-15 19:00 | disposition home or self-care (01) ==
LOC: PT 11:00
PROVIDERS: PCP Internal Medicine; Referring Provider Internal Medicine; Visit Provider Internal Medicine
DX: R26.9 Unspecified abnormalities of gait and mobility (principal); R53.1 Weakness; K52.9 Noninfective gastroenteritis and colitis, unspecified
CPT/HCPCS: 97110; 97162

== ENCOUNTER → 2023-01-07 | Outpatient (CLI) | payer MEDICARE, SELFPAY ==
[2023-01-07 13:01] LABS: AST(SGOT) 23 U/L (15-37); Alanine Aminotransfer ALT/SGPT 28 U/L (13-56); Albumin, Serum 3.4 g/dL (3.2-5.0); Alkaline Phosphatase 114 U/L (45-117); Bilirubin, Direct 0.15 mg/dL (0.00-0.30); Cholesterol 145 mg/dL (200); Globulin 4.1 g/dL (2.2-4.2); High Density Lipoprotein 53 mg/dL; Protein, Total 7.5 g/dL (6.4-8.2); Triglycerides 95 mg/dL; Very Low Density Lipoprotein 19 mg/dL (5-40)
== END | disposition home or self-care (01) ==
PROVIDERS: PCP Internal Medicine; Referring Provider Nurse Practitioner Family; Visit Provider Nurse Practitioner Family
DX: E78.5 Hyperlipidemia, unspecified (principal)
CPT/HCPCS: 36415; 80061; 80076; 82595

== ENCOUNTER → 2023-06-23 | Outpatient (CLI) | payer MEDICARE, SELFPAY ==
[2023-06-23 15:50] LABS: Mucous, Urine 0 SEEN /hpf (<or=2+)
[2023-06-23 16:16] LABS: Color, Urine Yellow (Yellow); Glucose, Dipstick Normal (Normal); Ketone-Dipstick Negative (Negative); Leukocyte Esterase-Dipstick 500 /ul (Negative); Nitrite-Dipstick Negative (Negative); Occult Blood-Urine 10 /ul (Negative); Protein-Dipstick 15 mg/dl (Negative); Specific Gravity, Urine 1.015 (1.002-1.030); Urine Bilirubin Dipstick Negative (Negative); Urine Clarity Sl. Cloudy (Clear); Urine Urobilinogen Normal (Normal)
[2023-06-23 17:08] LABS: Amylase 52 U/L (25-115); Lipase 37 U/L (13-75)
[2023-06-23 17:19] LABS: Bacteria 1+ /hpf (None Seen); Squamous Epithelial Cells - UA 0-5 SEEN /hpf (5-10); Transitional Epithelial - Ur 0-5 SEEN /hpf (0-5); White Blood Cells 10-25 SEEN /hpf (0-5)
[2023-06-23 17:20] LABS: Red Blood Cells-Urine 0-5 SEEN /hpf (0-5)
[2023-06-25 04:07] LABS: Carbohydrate AG 19-9 12 U/mL (0-35)
== END | disposition home or self-care (01) ==
LOC: LAB 15:46
PROVIDERS: PCP Internal Medicine; Referring Provider Internal Medicine Gastroenterology; Visit Provider Internal Medicine Rheumatology
DX: R76.0 Raised antibody titer (principal); D37.8 Neoplasm of uncertain behavior of other specified digestive organs; R10.9 Unspecified abdominal pain; K86.9 Disease of pancreas, unspecified
CPT/HCPCS: 36415; 81001; 82150; 83690; 86301

== ENCOUNTER → 2023-07-29 | Outpatient (CLI) | payer MEDICARE, SELFPAY ==
--- NOTE | 2023-07-29 14:12 | CT_ITS ---
INDICATION: Pancreatic lesion - pancreatic protocol EXAMINATION: CT ABDOMEN AND PELVIS WITH AND WITHOUT CONTRAST - CT Abdomen And Pelvis WO/W Contrast Injection TECHNIQUE: Helically acquired images were obtained of the abdomen and pelvis both before and after IV contrast. A radiation dose optimization technique was used for this scan. IV Contrast dosage and agent: 100 cc of Isovue-300 Oral contrast: None. RADIATION DOSAGE (If Supplied By Facility): CTDIvol = ( 15.57 ) mGy, DLP = ( 1229.22 ) mGycm COMPARISON: Prior study dated: 08/04/2022 FINDINGS: LOWER CHEST: Lung bases are clear. No cardiomegaly or pericardial effusion. Coronary calcifications. Previous median sternotomy. LIVER: Homogeneous. No focal mass. GALLBLADDER AND BILIARY TREE: No calcified gallstones. No gallbladder distension or wall edema. No intra- or extrahepatic biliary ductal dilation. PANCREAS: No focal cystic or solid mass. SPLEEN: Normal size without focal cystic or solid mass. ADRENAL GLANDS: No nodules. KIDNEYS AND URETERS: Mild scarring in the lateral aspect of right kidney. Small simple stable bilateral renal cysts for which no further follow-up exam is needed. No hydronephrosis. PERITONEUM: No ascites or free air. No other fluid collection. BOWEL: The appendix is not visualized. No stomach or bowel distension. No focal inflammatory change. LYMPH NODES: No enlarged mesenteric or retroperitoneal lymph nodes. VESSELS: Aorta is non-dilated. URINARY BLADDER: Unremarkable. REPRODUCTIVE ORGANS: No pelvic masses. ABDOMINAL WALL: Very small tiny umbilical hernia containing fat. BONES: No lytic or blastic abnormality. CT/CT Abd/Pelvis W/WO Contrast IMPRESSION: 1. No evidence of pancreatic mass on this examination. 2. No focal acute inflammatory process. Electronically Signed: Ravin Reyes MD at 13:30 EST ,
[2023-07-29 15:45] LABS: CREATININE FINGERSTICK < 1.0 mg/dL (0.55-1.02); EGFR FINGERSTICK > 60.0000 mL/min (>60)
== END | disposition home or self-care (01) ==
PROVIDERS: PCP Internal Medicine; Referring Provider Internal Medicine Gastroenterology; Visit Provider Internal Medicine Gastroenterology
DX: D37.8 Neoplasm of uncertain behavior of other specified digestive organs (principal); K86.9 Disease of pancreas, unspecified
CPT/HCPCS: 74178; Q9967

== ENCOUNTER → 2023-11-29 | Outpatient (CLI) | payer MEDICARE, SELFPAY ==
[2023-11-29 16:16] LABS: Mucous, Urine 0 SEEN /hpf (<or=2+)
[2023-11-29 17:18] LABS: Color, Urine Yellow (Yellow); Glucose, Dipstick Normal (Normal); Ketone-Dipstick Negative (Negative); Leukocyte Esterase-Dipstick 500 /ul (Negative); Nitrite-Dipstick Negative (Negative); Occult Blood-Urine 10 /ul (Negative); Protein-Dipstick Negative (Negative); Urine Bilirubin Dipstick Negative (Negative); Urine Clarity Sl. Cloudy (Clear); Urine Urobilinogen Normal (Normal)
[2023-11-29 17:38] LABS: Red Blood Cells-Urine 0-5 SEEN /hpf (0-5); Squamous Epithelial Cells - UA 0-5 SEEN /hpf (5-10); White Blood Cells 10-25 SEEN /hpf (0-5)
[2023-11-29 17:39] LABS: Bacteria RARE /hpf (None Seen)
== END | disposition home or self-care (01) ==
LOC: LAB 16:11
PROVIDERS: PCP Internal Medicine; Referring Provider Internal Medicine Gastroenterology; Visit Provider Internal Medicine Gastroenterology
DX: N30.90 Cystitis, unspecified without hematuria (principal)
CPT/HCPCS: 81001; 87077; 87086; 87088; 87186

== ENCOUNTER → 2023-12-27 | Outpatient (CLI) | payer MEDICARE, SELFPAY ==
--- NOTE | 2023-12-27 13:58 | CT_ITS ---
STUDY: CT ABDOMEN AND PELVIS WITH AND WITHOUT CONTRAST REASON FOR EXAM: Female, 78 years old. Pancreatic protocol RADIATION DOSAGE (If Supplied By Facility): CTDIvol = ( 19.70 ) mGy, DLP = ( 1673.15 ) mGycm TECHNIQUE: Transaxial images were obtained from the dome of the diaphragm to the symphysis pubis with oral contrast. Oral and amp; IV Readi-CAT and amp; 100mL Isovue-300 was administered. Sagittal and coronal images were reconstructed. Individualized dose optimization techniques were used for this CT. COMPARISON: Comparison is made with prior study July 29, 2023. FINDINGS: The visualized lung bases are unremarkable. Coronary artery calcifications. There is decreased attenuation of the liver consistent with steatosis. Normal gallbladder and extrahepatic biliary system. Normal spleen. There is diffuse atrophy of the pancreas. Normal bilateral adrenal glands. Stable cortical scar in the lateral aspect of the right kidney. Stable small bilateral renal cysts. Normal visualized stomach. Normal small intestine. Normal colon. The appendix is visualized and appears normal. There is scattered atherosclerotic calcification of the abdominal aorta, without a demonstrated aneurysm. Normal inferior vena cava. Normal retroperitoneum. Normal urinary bladder. Normal abdominal wall. There are degenerative changes of the visualized lumbar spine. CT/CT Abd/Pelvis W/WO Contrast IMPRESSION: Fatty infiltration of the liver. Pancreatic atrophy. Stable small bilateral renal cysts and cortical scar in the lateral aspect of the right kidney. Electronically Signed: Deonte Lozano MD at 9:59 EDT ,
[2023-12-27 14:23] LABS: CREATININE FINGERSTICK < 1.0 mg/dL (0.55-1.02); EGFR FINGERSTICK > 60.0000 mL/min (>60)
== END | disposition home or self-care (01) ==
PROVIDERS: PCP Internal Medicine; Referring Provider Internal Medicine Gastroenterology; Visit Provider Internal Medicine Gastroenterology
DX: Z01.812 Encounter for preprocedural laboratory examination (principal); D37.8 Neoplasm of uncertain behavior of other specified digestive organs
CPT/HCPCS: 74178; Q9967; A4216

== ENCOUNTER → 2024-01-17 | Outpatient (CLI) | payer MEDICARE, SELFPAY ==
--- NOTE | 2024-01-17 09:52 | US_ITS ---
STUDY: ABDOMINAL ULTRASOUND - RIGHT UPPER QUADRANT; ELASTOGRAPHY REASON FOR VISIT: Female, 78 years old. Fatty infiltration of the liver. TECHNIQUE: Ultrasound evaluation of the right upper quadrant was performed with real-time and static moreau-scale imaging. Point quantification shear wave elastography was performed ([employer]). TECHNICAL QUALITY: Adequate. COMPARISON: Comparison is made with prior CT scan abdomen and pelvis dated December 27, 2023. FINDINGS: Liver: The liver measures 15.1 cm. There is increased echogenicity consistent with fatty infiltration. The bile ducts are within normal limits. There is hepatic color flow. The direction of portal flow is hepatopetal. There is no demonstrated mass lesion. Median liver stiffness measured 17.4 kPa. Gallbladder: Normal distended gallbladder. The gallbladder wall measures 2.0 mm. There is a negative sonographic Cabrera''s sign. There is no pericholecystic fluid. There are no gallstones. Common Bile Duct (C.B.D.): The common bile duct measures 2.5 mm. Pancreas: There is normal echogenicity of the visualized pancreas. There is no demonstrated pancreatic mass or cyst. Right Kidney: Normal size of the right kidney. The right kidney measures 9.6 cm x 5 cm x 5 cm. Normal renal cortex. The right cortex measures 1.1 cm. 8mm by 8mm by 6 mm cyst. There is no right hydronephrosis. US/ABD Limited w/ Elastography IMPRESSION: 1. Liver stiffness measures 17.4 kPa compatible with F3-F4 (Moderate to severe liver fibrosis) Metavir score. Electronically Signed: Deonte Lozano MD at 9:15 EDT ,
== END | disposition home or self-care (01) ==
PROVIDERS: PCP Internal Medicine; Referring Provider Internal Medicine Gastroenterology; Visit Provider Internal Medicine Gastroenterology
DX: K76.0 Fatty (change of) liver, not elsewhere classified (principal)
CPT/HCPCS: 76705; 76981

== ENCOUNTER → 2024-02-10 | Outpatient (CLI) | payer MEDICARE, SELFPAY ==
[2024-02-07 03:13] LABS: Pancreatic Elastase, Fecal > 800 (>200)
--- NOTE | 2024-02-10 10:54 | US_ITS ---
STUDY: ABDOMINAL ULTRASOUND - ELASTOGRAPHY REASON FOR VISIT: Female, 78 years old. Fatty liver. TECHNIQUE: Liver stiffness measurements were obtained on a [employer] RS 85 ultrasound machine using a CA 1-7 probe following the U guidelines. 3 measurements were obtained using a 2-D-SWE method. TheIQR/M was 12% suggesting a quality data set. TECHNICAL QUALITY: Adequate. COMPARISON: Comparison is made with prior study January 17, 2024. FINDINGS: Liver: There is no demonstrated mass lesion. Median liver stiffness measured 17.3 kPa. Abdomen: There is no demonstrated mass lesion. US/Elastography Parenchyma/Organ IMPRESSION: Liver stiffness measures 17.3 kPa compatible with F3-F4 (Moderate to severe liver fibrosis) Metavir score. Electronically Signed: Deonte Lozano MD at 8:42 EDT ,
== END | disposition home or self-care (01) ==
LOC: US 10:49
PROVIDERS: Internal Medicine Gastroenterology; PCP Internal Medicine
DX: K86.89 Other specified diseases of pancreas (principal)
CPT/HCPCS: 76981; 82653

== ENCOUNTER → 2024-03-23 | Outpatient (CLI) | payer MEDICARE, SELFPAY ==
[2024-03-23 15:15] LABS: Absolute Lymphocyte Count 0.96 X10^3/uL (0.83-4.51); Absolute Neutrophil Count 6.5 X10^3/uL (2.0-7.7); Basophil# 0.08 X10^3/uL; Basophil% 0.9 % (0-1); Eosinophil# 0.19 X10^3/uL; Eosinophils% 2.2 % (0-5); Hematocrit 43.6 % (37-47); Hemoglobin 13.6 g/dL (12.0-15.0); Lymphocyte # 0.96 X10^3/ul (0.83-4.51); Lymphocyte % 11.1 % (19-41); Mean Corp Hgb Conc 31.2 g/dL (32-36); Mean Corpuscular Hgb 26.1 pg (27.0-32.0); Mean Corpuscular Volume 83.5 fL (81-99); Mean Platelet Vol. 11.9 fl (6.2-12.0); Monocyte# 0.83 X10^3/uL; Monocyte% 9.6 % (0-10); NRBC Flagged by Analyzer 0 % (0-5); Neutrophil # 6.53 X10^3/uL (2.7-7.7); Neutrophil % 75.7 % (47-70); Platelet Count 241 K/mm3 (150-450); RBC Distribution Width CV 14.5 % (11.6-14.6); RBC Distribution Width SD 43.8 fl (35.1-43.9); Red Blood Count 5.22 M/mm3 (4.2-5.4); White Blood Count 8.6 K/mm3 (4.4-11.0)
[2024-03-23 15:53] LABS: ALB/GLOB Ratio 0.8 RATIO (0.9-2.4); AST(SGOT) 42 U/L (15-37); Alanine Aminotransfer ALT/SGPT 40 U/L (13-56); Albumin, Serum 3.4 g/dL (3.2-5.0); Alkaline Phosphatase 114 U/L (45-117); Anion Gap 7 (5-15); BUN 9 mg/dL (7-18); BUN/Creat Ratio 10.7 RATIO (10-20); Calcium,Total 8.9 mg/dL (8.5-10.1); Chloride 107 mmol/L (98-107); Cholesterol 152 mg/dL (200); Creatinine, Serum 0.84 mg/dL (0.55-1.02); EST Glomerular Filtration Rate 70 mL/min (>60); Est Glom Filt Rate - Afr Amer 84 mL/min (>60); Globulin 4.1 g/dL (2.2-4.2); Glucose 100 mg/dL (74-106); High Density Lipoprotein 59 mg/dL; Potassium 3.9 mmol/L (3.5-5.1); Protein, Total 7.5 g/dL (6.4-8.2); Sodium Level 138 mmol/L (136-145); Triglycerides 123 mg/dL; Very Low Density Lipoprotein 25 mg/dL (5-40)
[2024-03-23 16:10] LABS: Vitamin B12 > 2000 pg/mL (211-911); Vitamin D,25 Hydroxy 36.8 ng/mL
== END | disposition home or self-care (01) ==
LOC: BIMLAB 11:47
PROVIDERS: PCP Internal Medicine; Referring Provider Internal Medicine; Visit Provider Internal Medicine
DX: I25.10 Atherosclerotic heart disease of native coronary artery without angina pectoris (principal); Z95.5 Presence of coronary angioplasty implant and graft; E03.9 Hypothyroidism, unspecified; E55.9 Vitamin D deficiency, unspecified
CPT/HCPCS: 36415; 80053; 80061; 82306; 82607; 84443; 85025

== ENCOUNTER → 2024-06-12 | Outpatient (CLI) | payer MEDICARE, SELFPAY ==
[2024-06-12 15:21] LABS: Prothrombin Time (Protime)PT. 13.5 SECONDS (11.7-14.9)
[2024-06-12 15:30] LABS: ALB/GLOB Ratio 0.8 RATIO (0.9-2.4); AST(SGOT) 37 U/L (15-37); Alanine Aminotransfer ALT/SGPT 44 U/L (13-56); Albumin, Serum 3.4 g/dL (3.2-5.0); Alkaline Phosphatase 116 U/L (45-117); Anion Gap 6 (5-15); BUN 11 mg/dL (7-18); BUN/Creat Ratio 11.4 RATIO (10-20); CRP < 2.90 mg/L (0.0-3.0); Calcium,Total 9.2 mg/dL (8.5-10.1); Chloride 107 mmol/L (98-107); Cholesterol 148 mg/dL (200); Creatinine, Serum 0.96 mg/dL (0.55-1.02); EST Glomerular Filtration Rate 60 mL/min (>60); Est Glom Filt Rate - Afr Amer 72 mL/min (>60); Ferritin 32 ng/mL (8-252); Globulin 4.5 g/dL (2.2-4.2); Glucose 112 mg/dL (74-106); High Density Lipoprotein 64 mg/dL; Iron Binding Capacity,Total 390 ug/dL (250-450); Potassium 4.4 mmol/L (3.5-5.1); Protein, Total 7.9 g/dL (6.4-8.2); Sodium Level 137 mmol/L (136-145); Triglycerides 107 mg/dL; Very Low Density Lipoprotein 21 mg/dL (5-40)
[2024-06-12 15:37] LABS: Hemoglobin A1c 5.9 % (3.8-5.6)
[2024-06-12 15:48] LABS: Absolute Neutrophil Count 5.4 X10^3/uL (2.0-7.7); Basophil# 0.11 X10^3/uL; Basophil% 1.5 % (0-1); Eosinophils% 2.7 % (0-5); Erythrocyte Sedimentation Rate 30 mm/hr (0-30); Hematocrit 46.4 % (37-47); Hemoglobin 14.9 g/dL (12.0-15.0); Mean Corp Hgb Conc 32.1 g/dL (32-36); Mean Corpuscular Hgb 26.9 pg (27.0-32.0); Mean Corpuscular Volume 83.9 fL (81-99); Mean Platelet Vol. 12.1 fl (6.2-12.0); Monocyte# 0.88 X10^3/uL; Monocyte% 11.7 % (0-10); NRBC Flagged by Analyzer 0 % (0-5); Neutrophil # 5.37 X10^3/uL (2.7-7.7); Neutrophil % 71.6 % (47-70); Platelet Count 271 K/mm3 (150-450); RBC Distribution Width CV 14.9 % (11.6-14.6); Red Blood Count 5.53 M/mm3 (4.2-5.4); White Blood Count 7.5 K/mm3 (4.4-11.0)
[2024-06-14 16:08] LABS: Anti-Centromere B Ab 0.2 AI (0.0-0.9); Anti-Chromatin 1.3 AI (0.0-0.9); Anti-Jo <0.2 AI (0.0-0.9); Anti-Mitochondrial AB <20.0 Units (0.0-20.0); Anti-Scleroderma-70 AB <0.2 AI (0.0-0.9); Anti-dsDNA Ab 8 IU/mL (0-9); RNP Ab <0.2 AI (0.0-0.9); SJOGREN'S Anti-SS-A test < 0.2 AI (0.0-0.9); SJOGREN'S Anti-SS-B test < 0.2 AI (0.0-0.9); Smith Ab <0.2 AI (0.0-0.9)
[2024-06-15 16:08] LABS: Angiotensin Convert Enzyme 80 U/L (14-82); Anti-Smooth Muscle ABS 63 Units (0-19); Ceruloplasmin 29.1 mg/dL (19.0-39.0); Copper, Serum or Plasma 127 ug/dL (80-158); Cytoplasmic Ab (C-ANCA) <1:20 titer (Neg:<1:20); Transferrin 294 mg/dL (192-364)
== END | disposition home or self-care (01) ==
LOC: MTLAB 12:44
PROVIDERS: PCP Internal Medicine; Referring Provider Student in an Organized Health Care Education/Training Program; Visit Provider Student in an Organized Health Care Education/Training Program
DX: K76.0 Fatty (change of) liver, not elsewhere classified (principal); R73.09 Other abnormal glucose
CPT/HCPCS: 80053; 80061; 82140; 82164; 82390; 82525; 82728; 83036; 83516; 83550; 84466; 85025; 85610; 85652; 86037; 86140; 86225; 86235

== ENCOUNTER → 2024-10-06 | Outpatient (CLI) | payer MEDICARE, SELFPAY | END | disposition home or self-care (01) | LOC: PSN 11:47 | PROVIDERS: PCP Internal Medicine; Referring Provider Nurse Practitioner Gerontology; Visit Provider Nurse Practitioner Gerontology | DX: I49.49 Other premature depolarization (principal) | CPT/HCPCS: 93225; 93226 ==

== ENCOUNTER → 2024-11-01 | Outpatient (CLI) | payer MEDICARE, SELFPAY ==
[2024-11-01 14:35] LABS: Absolute Lymphocyte Count 1.15 X10^3/uL (0.83-4.51); Absolute Neutrophil Count 5.6 X10^3/uL (2.0-7.7); Basophil# 0.07 X10^3/uL; Basophil% 0.9 % (0-1); Eosinophil# 0.09 X10^3/uL; Eosinophils% 1.2 % (0-5); Hematocrit 45.4 % (37-47); Hemoglobin 14.7 g/dL (12.0-15.0); Lymphocyte # 1.15 X10^3/ul (0.83-4.51); Lymphocyte % 14.9 % (19-41); Mean Corp Hgb Conc 32.4 g/dL (32-36); Mean Corpuscular Hgb 26.9 pg (27.0-32.0); Mean Platelet Vol. 11.4 fl (6.2-12.0); Monocyte# 0.72 X10^3/uL; Monocyte% 9.3 % (0-10); NRBC Flagged by Analyzer 0 % (0-5); Neutrophil # 5.64 X10^3/uL (2.7-7.7); Neutrophil % 73.2 % (47-70); Platelet Count 263 K/mm3 (150-450); RBC Distribution Width CV 14.5 % (11.6-14.6); RBC Distribution Width SD 43.3 fl (35.1-43.9); Red Blood Count 5.47 M/mm3 (4.2-5.4); White Blood Count 7.7 K/mm3 (4.4-11.0)
[2024-11-01 15:12] LABS: ALB/GLOB Ratio 1.2 RATIO (0.9-2.4); AST(SGOT) 32 U/L (<=31); Alanine Aminotransfer ALT/SGPT 25 U/L (<=34); Albumin, Serum 4.1 g/dL (3.4-4.8); Alkaline Phosphatase 136 U/L (35-104); Anion Gap 11 (5-15); BUN 14 mg/dL (4-19); BUN/Creat Ratio 14.9 RATIO (10-20); Calcium,Total 9.3 mg/dL (7.6-11.0); Chloride 103 mmol/L (98-108); Creatinine, Serum 0.97 mg/dL (0.70-1.20); EST Glomerular Filtration Rate 60 (>60); Globulin 3.4 g/dL (2.2-4.2); Glucose 117 mg/dL (70-99); Potassium 3.8 mmol/L (3.3-5.1); Protein, Total 7.5 g/dL (5.9-8.4); Sodium Level 138 mmol/L (133-145); Total Bilirubin 0.56 mg/dL (0.00-1.30)
[2024-11-03 11:08] LABS: Carbohydrate Ag 19-9 2261 13 U/mL (0-35)
== END | disposition home or self-care (01) ==
LOC: LAB 14:10
PROVIDERS: PCP Internal Medicine; Referring Provider Student in an Organized Health Care Education/Training Program; Visit Provider Student in an Organized Health Care Education/Training Program
DX: K76.0 Fatty (change of) liver, not elsewhere classified (principal); D37.8 Neoplasm of uncertain behavior of other specified digestive organs
CPT/HCPCS: 36415; 80053; 85025; 86301

== ENCOUNTER 2024-12-19 21:07 | Emergency (ER) | payer MEDICARE, SELFPAY ==
[2024-12-19 21:10] VITALS: BP 118/91; PULSE 75; RESP 18; TEMP 36.1; O2SAT 100; BMI 27.3
--- NOTE | 2024-12-19 22:45 | EDS_ITS ---
HPI History of Present Illness Chief Complaint: Nosebleed Informant: patient Narrative Narrative: 79-year-old female presenting for nosebleed that she states has been a relatively slow drip through from the right side since yesterday off and on. She states she feels fatigued but does not think that is a new symptom. She denies taking any blood thinners. She denies any near-syncope or syncope. No foreign bodies in her nose, no nasal injuries lately or head injuries, and denies blowing her nose lately or any other obvious cause of this. [facility] Medical History Abnormal finding on thyroid function test Depression Hyperthyroidism GERD (gastroesophageal reflux disease) Myocardial infarct Hypertension Stroke/cerebrovascular accident Dementia TIA (transient ischemic attack) Fracture of pubic ramus Colitis Edema Chronic cough PND (paroxysmal nocturnal dyspnea) Postoperative atrial fibrillation (11/06/20) Atherosclerotic heart disease of [place] coronary artery without angina pectoris History of non-ST elevation myocardial infarction (NSTEMI) (01/02/21) Anxiety Heme positive stool Anxiety and depression Iron deficiency anemia Pleural effusion, left Pleuritis Community acquired pneumonia Osteoarthritis Atherosclerosis of coronary artery of [place] heart without angina pectoris Essential (primary) hypertension HLD (hyperlipidemia) Home Medications ?Medication ?Instructions ?Recorded ?Last Taken ?Type acetaminophen 500 mg capsule 1,000 mg PO Q8H PRN Pain, Moderate 05/14/21 Unknown History aspirin 81 mg tablet,delayed 81 mg PO QODAY 07/09/21 1 10:00 History release (Adult Aspirin Regimen) cyanocobalamin (vitamin B-12) 1,000 mcg PO DAILY 05/22 Unknown History 1,000 mcg capsule ondansetron HCl 4 mg tablet 4 mg PO Q6H PRN Nausea Unknown History potassium chloride 10 mEq 20 meq (2 x 10 mEq) PO DAILY Pt 08/20/23 Unknown Rx tablet,extended release needs 10 meq pills to swallo w easier #60 tabs calcium carbonate-vitamin D3 1 tab PO DAILY 03/20/24 U nknown History [Calcium 600 with Vitamin D3] benzonatate 100 mg capsule 100 mg PO TID PRN Cough #30 caps 07/05/24 Unknown Rx escitalopram oxalate 10 mg tablet 10 mg PO DAILY anxie ty #90 tabs 07/05/24 Unknown Rx memantine 10 mg tablet 10 mg PO BID #180 tabs 07/05 Unknown Rx nortriptyline 25 mg capsule 25 mg PO DAILY #90 caps Unknown Rx atorvastatin 80 mg tablet 40 mg PO QHS 09/04/24 Unknow n History resmetirom 80 mg tablet (Rezdiffra) 80 mg PO DAILY Fat ty liver disease 09/04/24 Unknown History vitamin E 800 unit capsule 800 unit PO QDAY 09/04/24 U nknown History metoprolol succinate 50 mg 50 mg PO DAILY #90 TABLETS 09/15/24 Unknown Rx tablet,extended release 24 hr alendronate 70 mg tablet 70 mg PO QWEEK #12 tabs 09/21 06/17 Unknown Rx clopidogrel 75 mg tablet 75 mg PO DAILY #90 tabs 09/22 06/17 Unknown Rx levothyroxine 25 mcg tablet 25 mcg PO DAILY THYROID #9 0 tabs 11/01/24 Unknown Rx pantoprazole 20 mg tablet,delayed 20 mg PO DAILY #90 t abs 11/01/24 Unknown Rx release furosemide 40 mg tablet 40 mg PO DAILY #90 tabs 12/15 Unknown Rx Allergy/AdvReac Type Severity Reaction Status Date / Time lisinopril AdvReac Intermediate cough Verified 12/19/24 21:10 Family History Father Rheumatoid arthritis Mother CHF (congestive heart failure) Brother Age: 80 High cholesterol Uncle Heart disease Surgical History H/O coronary artery bypass surgery (11/04/20) History of repair of retinal tear by laser photocoagulation History of left heart catheterization (10/30/20) History of coronary artery stent placement (03/22/06) Hx of appendectomy Social History household members: none housing: house current occupational status: 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 Smoking Status: Never smoker alcohol intake: never substance use type: does not use caffeine: No do you feel safe at home: Yes ROS ROS ED Constitutional Constitutional ED: Reports fatigue; Denies chills or fever(s) Eyes Eyes: Denies change in vision or diplopia ENT ENT ED: Reports epistaxis; Denies rhinorrhea, sore throat or throat swelling Cardiovascular Cardiovascular: Denies chest pain, lightheadedness, palpitations or syncope Respiratory/Chest Respiratory/Chest: Denies cough or dyspnea Gastrointestinal Gastrointestinal: Denies abdominal pain, diarrhea, nausea or vomiting Genitourinary Genitourinary ED: Denies dysuria or hematuria Musculoskeletal Musculoskeletal: Denies back pain or neck pain Integumentary Denies abscess or rash Neurologic Neurologic: Denies headache(s), paresthesias or weakness Psychiatric Psychiatric: Denies anxiety or suicidal thoughts EXAM Physical Exam Const Vital Signs: 12/19/24 21:10 12/19/24 23:07 Temperature 97 F L Temperature Source Temporal Pulse Rate 75 67 Respiratory Rate 18 14 Blood Pressure 118/91 H 134/5 H Blood Pressure Mean 100 48 Pulse Ox 100 97 Oxygen Delivery Method Room Air Room Air Positive well nourished and well developed General Appearance ED: well developed and NAD HEENT Reports moist mucous membranes HEENT Narrative: Patient has a nasal clip on, posterior pharynx and mouth are clear of any blood. Taken off the nasal clip, the left naris is clear, the right has what appears to be clot at the septum without any active bleeding at this time. No septal hematoma or perforation. normocephalic and atraumatic Eyes PERRL and EOMs intact bilaterally Neck full ROM and supple Resp normal respiratory effort Neuro oriented x3, CN's II-XII intact bilaterally and no sensory deficits noted Sensorium / Orientation: awake and alert Motor Exam: strength 5/5 throughout Skin no rashes or lesions noted and no wounds MDM MDM MDM Narrative Medical decision making narrative: Patient appears to be on any antiplatelets. This appears to be septal anterior source of bleeding. Given her systemic symptoms obtaining a CBC, I will soak the right naris in vasoconstrictor and anesthetic, and reevaluate for possible cauterization. Reviewed her labs her CBC is normal, likely etiology of her anterior epistaxis was cauterized see the procedure note. Patient was discharged with appropriate discharge instructions regarding this. She states she is no longer on the antiplatelets that are listed in her EMR. History & Record Review Additional record(s) reviewed:: Other (EMR: Aspirin 81 mg, clopidogrel) Lab Data Labs: Laboratory Results - last 24 hr 12/19/24 12/19/24 23:04 23:26 WBC Cancelled 8.9 Corrected WBC Cancelled RBC Cancelled 4.62 Hgb Cancelled 12.4 Hct Cancelled 38.6 MCV Cancelled 83.5 MCH Cancelled 26.8 L MCHC Cancelled 32.1 RDW Std Deviation Cancelled 43.8 RDW Coeff of Kitty Cancelled 14.4 Plt Count Cancelled 216 MPV Cancelled 11.5 [address] Path Review Cancelled Procedures Other Procedures Procedure(s): epistaxis care -soaked right naris and Mabel solution. On reevaluation no active bleeding, there is septal evidence of etiology of the bleeding without hematoma. This was cauterized with silver nitrate. This was tolerated well no complications, no active bleeding, and no recurrent bleeding on observation afterwards. Discharge Plan Triage Chief Complaint: Nosebleed ED Provider: Juan Miguel Covarrubias Dx/Rx/DC Orders Clinical Impression: Acute anterior epistaxis Instructions: ED Epistaxis (Adult) Prescriptions: No Action calcium carbonate-vitamin D3 [Calcium 600 with Vitamin D3] 1 tab PO DAILY Rx Instructions: 1200 mg/ 800 vitamin E 800 unit capsule 800 unit PO QDAY Rezdiffra 80 mg tablet 80 mg PO DAILY atorvastatin 80 mg tablet 40 mg PO QHS Rx Instructions: Dose reduced due to patient starting Rezdiffra for fatty liver. acetaminophen 500 mg Capsule 1,000 mg PO Q8H PRN (Reason: Pain, Moderate) ondansetron HCl 4 mg Tablet 4 mg PO Q6H PRN (Reason: Nausea) cyanocobalamin (vitamin B-12) 1,000 mcg Capsule 1,000 mcg PO DAILY aspirin [Adult Aspirin Regimen] 81 mg tablet,delayed release (DR/EC) 81 mg PO QODAY potassium chloride 10 mEq tablet extended release 20 meq PO DAILY Qty: 60 11RF benzonatate 100 mg capsule 100 mg PO TID PRN (Reason: Cough) Qty: 30 0RF escitalopram oxalate 10 mg tablet 10 mg PO DAILY Qty: 90 0RF memantine 10 mg tablet 10 mg PO BID Qty: 180 0RF nortriptyline 25 mg capsule 25 mg PO DAILY Qty: 90 0RF metoprolol succinate 50 mg tablet extended release 24 hr 50 mg PO DAILY Qty: 90 3RF alendronate 70 mg tablet 70 mg PO QWEEK Qty: 12 0RF clopidogrel 75 mg tablet 75 mg PO DAILY Qty: 90 3RF pantoprazole 20 mg tablet,delayed release (DR/EC) 20 mg PO DAILY Qty: 90 0RF levothyroxine 25 mcg tablet 25 mcg PO DAILY Qty: 90 0RF furosemide 40 mg tablet 40 mg PO DAILY Qty: 90 3RF Primary Care Provider: Bill Sue Referrals: Bill Sue MD [Primary Care Provider] - Print Language: Mongolian Disposition Disposition: Home, Self Care
[2024-12-19] MEDS: Silver Nitrate (BKC) 1 EACH TOPICAL (23:05)
[2024-12-19] MEDS: Mixture 30 ML Bottle TOPICAL (23:06)
[2024-12-19 23:07] VITALS: BP 134/5; PULSE 67; RESP 14; O2SAT 97
[2024-12-19 23:35] LABS: Hematocrit 38.6 % (37-47); Hemoglobin 12.4 g/dL (12.0-15.0); Mean Corp Hgb Conc 32.1 g/dL (32-36); Mean Corpuscular Volume 83.5 fL (81-99); Mean Platelet Vol. 11.5 fl (6.2-12.0); Platelet Count 216 K/mm3 (150-450); RBC Distribution Width CV 14.4 % (11.6-14.6); RBC Distribution Width SD 43.8 fl (35.1-43.9); Red Blood Count 4.62 M/mm3 (4.2-5.4); White Blood Count 8.9 K/mm3 (4.4-11.0)
[2024-12-20 00:48] VITALS: BP 145/71; PULSE 74; RESP 16; TEMP 36.1; O2SAT 97
== END 2024-12-20 02:25 | disposition home or self-care (01) ==
PROVIDERS: Emergency Provider Emergency Medicine; PCP Family Medicine; Visit Provider Emergency Medicine
DX: R04.0 Epistaxis (principal); I10 Essential (primary) hypertension; E78.5 Hyperlipidemia, unspecified; I25.10 Atherosclerotic heart disease of native coronary artery without angina pectoris; I25.2 Old myocardial infarction; Z86.73 Personal history of transient ischemic attack (TIA), and cerebral infarction without residual deficits; Z79.82 Long term (current) use of aspirin; F41.8 Other specified anxiety disorders; Z79.899 Other long term (current) drug therapy; Z79.02 Long term (current) use of antithrombotics/antiplatelets; K21.9 Gastro-esophageal reflux disease without esophagitis; Z95.5 Presence of coronary angioplasty implant and graft; Z90.49 Acquired absence of other specified parts of digestive tract
CPT/HCPCS: 30901; 85027; 99282

== ENCOUNTER → 2025-01-18 | Outpatient (CLI) | payer MEDICARE, SELFPAY ==
--- NOTE | 2025-01-18 10:01 | US_ITS ---
PROCEDURE: ABD LIMITED W/ ELASTOGRAPHY REASON FOR EXAM: FATTY LIVER COMPARISON: Prior study dated January 17, 2024. TECHNIQUE: Right upper quadrant abdominal ultrasound. [employer] El[employer] shear wave elastography for non-invasive assessment of liver tissue stiffness. Rolly EPIQ Elite. FINDINGS: LIVER: Size: Unremarkable Length: 16.1 cm Echotexture: Diffusely echogenic suggesting fatty infiltration Contour: Normal Lesions: None identified Elastography: EQI Med: 13.9 kPa EQI Med Paulo: 2.1 m/s IQR/Med: 26 %* GALLBLADDER: No stones sludge wall thickening or tenderness. COMMON BILE DUCT: Not visualized due to overlying bowel gas. . PANCREAS: Obscured by bowel gas. The right kidney measures 9.6 cm 4.7 cm 5.1 cm. Renal cortex measures 0.9 cm. There is a 1.1 cm x 1.1 cm x 0.9 cm renal cyst. There are 2 tiny nonobstructive intrarenal calculi. No right upper quadrant ascites. US/ABD Limited w/ Elastography IMPRESSION: SEVERE HEPATIC FIBROSIS / CIRRHOSIS Fatty infiltration of the liver. Reference Values: SRU <1.37 m/s (5.7kPa): No to mild fibrosis 1.37 m/s - 2.2 m/s: Moderate to severe fibrosis >2.2 m/s (15kPa): Significant fibrosis / cirrhosis METAVIR Score F2 or higher: 1.34 m/s (5.7kPa) F3 or higher: 1.55 m/s (7.3kPa) F4: 1.80 m/s (10kPa) * If the IQR/Med is >30%, the variance in the measurements is a large and the a ccuracy of the measurement may be in question. Reading Location: [facility]
== END | disposition home or self-care (01) ==
PROVIDERS: PCP Family Medicine; Referring Provider Student in an Organized Health Care Education/Training Program; Visit Provider Student in an Organized Health Care Education/Training Program
DX: K76.0 Fatty (change of) liver, not elsewhere classified (principal)
CPT/HCPCS: 76705; 76981

== ENCOUNTER → 2025-02-15 | Outpatient (CLI) | payer MEDICARE, SELFPAY ==
[2025-02-15 12:24] LABS: Hematocrit 46.0 % (37-47); Hemoglobin 15.1 g/dL (12.0-15.0); Immature Granulocytes Count 0.040 X10^3/uL (0.0-0.0); Mean Corp Hgb Conc 32.8 g/dL (32-36); Mean Corpuscular Volume 84.2 fL (81-99); Mean Platelet Vol. 11.1 fl (6.2-12.0); NRBC Flagged by Analyzer 0 % (0-5); Platelet Count 268 K/mm3 (150-450); RBC Distribution Width CV 14.6 % (11.6-14.6); RBC Distribution Width SD 44.2 fl (35.1-43.9); Red Blood Count 5.46 M/mm3 (4.2-5.4); White Blood Count 8.0 K/mm3 (4.4-11.0)
[2025-02-15 12:53] LABS: AST(SGOT) 36 U/L (<=31); Alanine Aminotransfer ALT/SGPT 25 U/L (<=34); Albumin, Serum 4.0 g/dL (3.4-4.8); Alkaline Phosphatase 142 U/L (35-104); Anion Gap 12 (5-15); BUN 12 mg/dL (4-19); BUN/Creat Ratio 14.7 RATIO (10-20); Calcium,Total 9.3 mg/dL (7.6-11.0); Carbon Dioxide 22.1 mmol/L (21.0-32.0); Chloride 105 mmol/L (98-108); Globulin 3.6 g/dL (2.2-4.2); Glucose 102 mg/dL (70-99); Potassium 4.1 mmol/L (3.3-5.1)
== END | disposition home or self-care (01) ==
LOC: MTLAB 10:43
PROVIDERS: PCP Family Medicine; Referring Provider Student in an Organized Health Care Education/Training Program; Visit Provider Student in an Organized Health Care Education/Training Program
DX: K76.0 Fatty (change of) liver, not elsewhere classified (principal)
CPT/HCPCS: 36415; 80053; 85025

== ENCOUNTER → 2025-03-09 | Outpatient (CLI) | payer MEDICARE, SELFPAY ==
[2025-03-09 10:15] LABS: Hematocrit 40.8 % (37-47); Hemoglobin 13.2 g/dL (12.0-15.0); Mean Corp Hgb Conc 32.4 g/dL (32-36); Mean Corpuscular Volume 83.3 fL (81-99); Mean Platelet Vol. 11.8 fl (6.2-12.0); Platelet Count 246 K/mm3 (150-450); RBC Distribution Width CV 14.3 % (11.6-14.6); RBC Distribution Width SD 43.3 fl (35.1-43.9); Red Blood Count 4.90 M/mm3 (4.2-5.4); White Blood Count 5.2 K/mm3 (4.4-11.0)
[2025-03-09 10:43] LABS: AST(SGOT) 34 U/L (<=31); Alanine Aminotransfer ALT/SGPT 26 U/L (<=34); Albumin, Serum 3.7 g/dL (3.4-4.8); Alkaline Phosphatase 123 U/L (35-104); Anion Gap 12 (5-15); BUN 11 mg/dL (4-19); BUN/Creat Ratio 15.5 RATIO (10-20); Calcium,Total 8.9 mg/dL (7.6-11.0); Carbon Dioxide 22.2 mmol/L (21.0-32.0); Chloride 104 mmol/L (98-108); Cholesterol 118 mg/dL (<=200); Globulin 3.2 g/dL (2.2-4.2); Glucose 147 mg/dL (70-99); Low Density Lipoprotein Calc. 36 mg/dL; Potassium 3.9 mmol/L (3.3-5.1); Triglycerides 92 mg/dL; Very Low Density Lipoprotein 18 mg/dL (5-40); cholesterol:hdl ratio screen 1.85
== END | disposition home or self-care (01) ==
LOC: MTLAB 08:09
PROVIDERS: PCP Family Medicine; Referring Provider Family Medicine; Visit Provider Family Medicine
DX: I10 Essential (primary) hypertension (principal); I25.10 Atherosclerotic heart disease of native coronary artery without angina pectoris; E03.9 Hypothyroidism, unspecified
CPT/HCPCS: 36415; 80053; 80061; 84443; 85027

== ENCOUNTER → 2025-03-29 | Outpatient (CLI) | payer MEDICARE, SELFPAY ==
--- NOTE | 2025-03-29 15:07 | BD_ITS ---
PROCEDURE: DEXA BONE DENSITY STUDY 03/29/2025 REASON FOR EXAM: F, age 79 y/o . Postmenopausal. TECHNIQUE: Procedure Code: BDDBD Modality: DX Procedure: DEXA BONE DENSITY STUDY COMPARISON: None FINDINGS: BMD and T-SCORES Lumbar spine: 0.780 g/cm2, T-score -2.5 Levels: L1 through L4 Left femoral neck: 0.576 g/cm2, T-score -2.5 Femoral neck comparison data not recommended for monitoring change. Left total hip: 0.692 g/cm2, T-score -2.1 Right femoral neck: 0.666 g/cm2, T-score -1.7 Femoral neck comparison data not recommended for monitoring change. Right total hip: 0.728 g/cm2, T-score -1.8 The World Health Organization has defined the following categories based on bone density: Normal bone density: T-score equal to or greater than -1.0 Osteopenia: T-score between -1.0 and -2.5 Osteoporosis: T-score equal to or less than -2.5 FRAX (or Comparable) Fracture Risk Assessment: 10 Year Probability of Fracture: Major Osteoporotic Fracture: 18% Hip Fracture: 5.9% (Note: FRAX is not to be reported in setting of normal range bone density, osteoporosis on DEXA, known history of osteoporosis, prior osteoporotic hip or vertebral fracture, or for any patient undergoing pharmacological treatment for bone loss.) The National Osteoporosis Foundation (NOF) recommends pharmacological treatment for patients with a FRAX 10-year risk of 3% or higher for a hip fracture, or 20% or higher for a major osteoporotic fracture, to prevent osteoporosis and reduce fracture risk. The patient does meet the pharmacological treatment recommendations for prevention of osteoporosis. BD/Dexa Bone Density Study IMPRESSION: OSTEOPOROSIS. Recommend follow-up as clinically warranted. Reading Location: [facility]
== END | disposition home or self-care (01) ==
LOC: OPBD 15:05
PROVIDERS: PCP Family Medicine; Referring Provider Family Medicine; Visit Provider Family Medicine
DX: M81.0 Age-related osteoporosis without current pathological fracture (principal)
CPT/HCPCS: 77080

== ENCOUNTER → 2025-04-27 | Outpatient (CLI) | payer MEDICARE, SELFPAY ==
--- OUTSIDE RECORDS SUMMARY | 2025-04-27 16:07 | XMS RPT_ITS | CCD ---
Author Organization [facility] Care Team Providers Care Manager Battery Name Role Phone Unavailable Primary Care Provider UnavailJd Batista MD Primary Care Provider Dr. Jd Barger Primary Care Provider Dr. Jd Barger Referring Provider Roof MACHINE SPRING FORMER, MACHINE SPRING FORMER-C Giorgio Tolliver Attending Provider Jd Barger MD Primary Care Provider Jd Barger Primary Care Provider FATUMA JOHNSON Attending Unavailable Jd Barger Primary Care Unavailable PROVIDER, UNKNOWN Referring Unavailable Jd Barger Primary Care Unavailable PROVIDER, UNKNOWN Referring Unavailable FATUMA JOHNSON Attending Unavailable Jd Barger MD Primary Care Provider Dr. Jd Barger Primary Care Provider Dr. Jaren Miller Emergency Provider Dr. Jamir Ley Admit Provider Dr. Jamir Ley Attending Provider Dr. Jamir Ley Other Provider Dr. Gisela Chandler Attending Provider Dr. Gisela Chandler Other Provider Dr. Chano Henao Attending Provider Dr. Chano Henao Other Provider Dr. Jd Barger Primary Care Provider Dr. Jaren Miller Emergency Provider Dr. Jamir Ley Admit Provider Dr. Jamir Ley Attending Provider Dr. Jamir Ley Other Provider Dr. Gisela Chandler Attending Provider Dr. Gisela Chandler Other Provider Dr. Chano Henao Attending Provider Dr. Chano Henao Other Provider Dr. Betsy Victor Attending Provider Valente, Dr. Meyer Other Provider Dr. Jd Barger Referring Provider Dr. Adrien Sanabria Attending Provider Dr. Jose Heath Attending Provider Jd Barger Primary Care Provider Dr. Jd Barger Primary Care Provider Dr. Jd Barger Referring Provider Roof MACHINE SPRING FORMER, MACHINE SPRING FORMER-Irina Tolliver Attending Provider Dr. Jd Barger Primary Care Provider Dr. Jd Barger Referring Provider Dr. Jose Heath Attending Provider Dr. Jd Barger Primary Care Provider Dr. Jd Barger Referring Provider Dr. Jose Heath Attending Provider Roof MACHINE SPRING FORMER, MACHINE SPRING FORMER-Irina Tolliver Attending Provider Jd Barger MD Primary Care Provider Agatha Matthews MD Primary Care Provider [phone] AGATHA MATTHEWS Primary Care Unavailable JD BARGER Attending Unavailable JD BARGER Primary Care Unavailable Isabel DELANEY, Agatha Morillo Primary Care Provider Isabel DELANEY, Dr. Gambino Primary Care Provider [phone] Padma Donovan Attending Provider Unavailable Dr. Agatha Matthews MD Referring Provider Shailesh MACHINE SPRING FORMER-C, Opal Attending Provider [phone] Shailesh MACHINE SPRING FORMER-C, Opal Referring Provider [phone] Elly DELANEY, Dr. Jurado Attending Provider [phone] Raven Roberson Attending Provider Raven Roberson Referring Provider Linette DELANEY, Bill Primary Care Provider Dr. Juan Miguel Covarrubias MD Emergency Provider Dr. Agatha Matthews MD Primary Care Provider [phone] Marci DELANEY, Dr. Bullard Attending Provider Isabel DELANEY, Dr. Gambino Primary Care Physician Dr. Agatha Matthews MD Referring Provider Raven Roberson Attending Physician Bill Corado MD Primary Care Physician Marci DELANEY, Dr. Bullard Attending Physician Dr. Juan Miguel Covarrubias MD Emergency Department Phys ician Linette DELANEY, Bill Turner Primary Care Provider OPAL BOOTH Attending Unavailable AGATHA MATTHEWS Primary Care Unavailable OPAL BOOTH Attending Unavailable BILL CORADO Primary Care Unavailable Agatha Matthews Primary Care Unavailable Raven Garcia Referring Unavailable Raven Garcia Attending Unavailable Bill Corado Primary Care Unavailable Bill Corado Referring Unavailable Bill Corado Attending Unavailable Agatha Matthews Primary Care Unavailable Shailesh MACHINE SPRING FORMEROpal Attending Unavailable Shailesh BOWEN, Opal Referring Unavailable Isabel, Agatha Primary Care Unavailable Andes, Agatha Referring Unavailable Raven Garcia Attending Unavailable Andes, Agatha Primary Care Unavailable Nolt, Padma Attending Unavailable Isabel, Agatha Primary Care Unavailable EllyAnant looneyril Attending Unavailable Shailesh MACHINE SPRING FORMER, Opal Referring Unavailable Andes, Agatha Referring Unavailable Linette, Chalon Primary Care Unavailable Raven Garcia Attending Unavailable Linette, Chalon Primary Care Unavailable Shailesh MACHINE SPRING FORMER, Opal Attending Unavailable Talampas, Jd D Referring Unavailable Isabel, Agatha Primary Care Unavailable AtanasovRaven Attending Unavailable Talampas, Jd D Referring Unavailable Isabel, Agatha Referring Unavailable Andes, Agatha Primary Care Unavailable Shailesh MACHINE SPRING FORMER, Opal Attending Unavailable Andes, Agatha Primary Care Unavailable Raven Garcia Attending Unavailable Raven Garcia Referring Unavailable Linette, Chalon Primary Care Unavailable Raven Garcia Attending Unavailable Raven Garcia Referring Unavailable Lniette, Chalon Primary Care Unavailable Raven Garcia Attending Unavailable TdnasovRaven Referring Unavailable Linette, Chalon Primary Care Unavailable Linette, Chalon Referring Unavailable Linette, Chalon Attending Unavailable Linette, Chalon Primary Care Unavailable Juan Miguel Covarrubias Attending Unavailable Allergies Allergy Classification Reported Allergen(s) Allergy Type Date of Onset Reaction(s) Facility Angiotensin Converting Enzyme (JEET) Inhibitors (1 source) Lisinopril Drug Allergy 06-21-19 08 [facility] Aspartame (1 source) Aspartame Drug Allergy 11-01-19 21 [facility] Benzodiazepines (2 sources) diazePAM Drug Allergy 05-30-19 13 Other (See Comments), Mental Status Change [facility] Contrast Media (1 source) Contrast media Substance Allergy 04-14-20 06 Other: See Comments [facility] HMG-CoA Reductase Inhibitors (statins) (1 source) atorvastatin Drug Allergy 05-20-20 06 GI Upset [facility] Iodine (and Iodine containting drugs) (1 source) Iodine Drug Allergy 11-01-19 21 [facility] Lactose (2 sources) Lactose Drug Allergy 12-03-19 12 Diarrhea, GI Upset [facility] Macrolides (antibiotic) (1 source) Azithromycin Drug Allergy 11-28-19 03 GI Upset [facility] Work Phone: Pork (1 source) pork Food Allergy 11-01-19 21 [facility] Saccharin (1 source) Saccharin Drug Allergy 11-01-19 21 [facility] Soy (2 sources) Soy protein Food Allergy 04-02-20 17 Nausea And Vomiting, GI Upset [facility] tomato allergenic extract (1 source) tomato allergenic extract Drug Allergy 11-01-19 21 [facility] Unclassified (1 source) BEEF-DERIVED PRODUCTS Propensity to adverse reactions to drug 11-01-19 21 [facility] Unclassified (20 sources) IODIDES Propensity to adverse reactions to drug 04-14-20 06 [facility] Unclassified (1 source) FOOD Propensity to adverse reactions to drug 11-28-19 03 [facility] Unclassified (2 sources) SUCRALOSE Propensity to adverse reactions to drug 11-01-19 [facility] (20 sources) atorvastatin; Translations: [ATORVASTATIN CALCIUM] Drug Allergy 05-20-20 06 GI Upset [facility] Work Phone: (20 sources) Contrast media; Translations: [CONTRAST DYE] Propensity to adverse reactions 04-14-20 06 Other: See Comments [facility] Work Phone: (20 sources) diazePAM; Translations: [DIAZEPAM] Drug Allergy 05-30-19 13 Mental Status Change, Other (See Comments) [facility] Work Phone: (20 sources) Lactose; Translations: [LACTOSE] Drug Allergy 12-03-19 12 Diarrhea, GI Upset [facility] (20 sources) Lisinopril; Translations: [LISINOPRIL] Drug Allergy 06-21-19 08 cough [facility] Work Phone: (20 sources) Soy protein; Translations: [SOY] Drug Intolerance 04-02-20 17 GI Upset [facility] Work Phone: (20 sources) Artificial Plasticizer; Translations: [ARTIFICIAL PLASTICIZER] Drug Intolerance 04-02-20 17 GI Upset [facility] Work Phone: (20 sources) Food Supplemt, Lactose-Reduced; Translations: [FOOD SUPPLEMT, LACTOSE-REDUCED] Drug Allergy 03-11-20 15 GI Upset [facility] (20 sources) Z Pack [Other] Propensity to adverse reactions 11-28-19 03 [facility] (4 sources) Iodine Drug Allergy 11-01-[address] [facility] Work Phone: (1 source) Aspartame Drug Allergy 11-01-19 21 [facility] (1 source) Saccharin Drug Allergy 11-01-19 [facility] Work Phone: (1 source) Soy protein Propensity to adverse reactions to drug 04-02-20 17 Nausea And Vomiting [facility] Work Phone: (20 sources) Diazepam Propensity to adverse reactions 05-30-19 13 [facility] [employer] (20 sources) Lisinopril Propensity to adverse reactions 06-21-19 08 [facility] (9 sources) Azithromycin; Translations: [AZITHROMYCIN] Drug Allergy 11-28-19 03 GI Upset [facility] Work Phone: (1 source) OTHER; Translations: [OTHER] Propensity to adverse reactions (disorder) 11-28-19 [facility] (1 source) Lisinopril Drug Allergy 04-03-20 [facility] NEGATED: Highlighted row has been ruled out!Unclassified (1 source) OTHER Propensity to adverse reactions 04-02-20 Diarrhea [facility] Medications Current Medications Medication Drug Class(es) Dates Sig (Normalized) Sig (Original) acetaminophen 500 mg oral capsule (17 sources) Start: 05-14-2021 take 2 capsules by mouth every eight hours as needed for pain Start: 05-14-2021 take 1000 mg by mout h every eight hours Acetaminophen Active 1000 MG PO Q8H May 14, 2021 1:00am Start: 05-14-2021 take 1000 mg by mout h every six hours Acetaminophen Active 1000 MG PO EVERY 6 HOURS May 14, 2021 12:00am Start: 11-05-2020 650 mg, Rectal , EVERY 4 HOURS PRN, Pain Mild (1-3), Starting on Wed11/05/20 at 0621 Maximum dose of acetaminophen is 4000 mg from all sources in 24 hours. Use if PO meds ineffective or if patient NPO Start: 11-04-2020 take 1000 mg by mout h every eight hours, then take 4000 mg by mouth every twenty-four hours 1,000 mg, Oral, EVERY 8 HOURS, First dose on Wed11/04/20 at 1230 Maximum dose of acetaminophen is 4000 mg from all sources in 24 hours. Post-op albuterol 0.833 mg/ml / ipratropium bromide 0.167 mg/ml inhalation solution (3 sources) Anticholinergic, beta2-Adrenergic Agonist Start: 11-12-2020 1 ampule, Inhalation, EVERY 4 HOURS PRN, Shortness of Breath, Starting on Wed11/12/20 at 0900 Start: 11-08-2020 End: 11-12-2020 1 ampule, Inhalation, 3 TIME S DAILY, First dose (after last modification) on Wed11/08/20 at 1930 Start: 11-04-2020 End: 11-08-2020 1 ampule, Inhalation, EVERY 4 HOURS WHILE AWAKE, First dose on Wed11/04/20 at 1200 alendronic acid 70 mg oral tablet (20 sources) Bisphosphonate Start: 08-18-2022 End: 10-01-2024 take 1 tablet by mouth every week alendronate (Fosamax) 70 MG tablet TAKE 1 TABLET BY MOUTH ONCE A WEEK WITH A FULL GLASS OF WATER ON AN EMPTY STOMACH. DO NOT LIE DOWN FOR 30 MINUTES 08/18/2022 Active Comment on above: Take 1 tablet by [facility] one time a week. Take with a full glass of water, on an empty stomach; do NOT lie down for 30minutes. amLODIPine 5 mg oral tablet (1 source) Dihydropyridine Calcium Channel Twyla Start: 11-05-2020 take 5 mg by mouth once daily 5 mg, Oral, DAILY, First dose on Wed11/05/20 at 1115 aspirin 81 mg delayed release oral tablet (20 sources) Platelet Aggregation Inhibitor, Nonsteroidal Anti-inflammatory Drug Start: 01-02-2021 End: 01-17-2021 take 1 tablet by mouth once daily Aspirin 325 mg Tablet Discontinued 325 mg PO DAILY January 02, 2021 12:00am January 17, 2021 11:50am antiplatelet Start: 11-18-2020 Start: 11-05-2020 End: 11-18-2020 Start: 06-12-2020 aspirin 81 MG EC tablet Take 81 mg by mouth. 06/12/2020 Active Start: 01-16-2020 End: 06-20-2021 Aspirin (Adult Low Dose Aspi rin) 81 mg tablet,delayed release (DR/EC) Discontinued 81 mg PO DAILY 90 3 March 13, 2021 8:11am June 20, 2021 12:18pm Comment on above: Take 1 tablet by adrianne th once daily. atorvastatin 80 mg oral tablet (20 sources) HMG-CoA Reductase Inhibitor Start: End: take 1 tablet by mouth at bedtime Atorvastatin 20 mg tablet Discontinued 20 mg PO AT BEDTIME December 24, 2022 12:00am February 24, 2024 2:14pm Start: 09-19-2021 End: 07-05-2024 take 4 tablets by mouth at bedtime Atorvastatin 20 mg tablet Discontinued 80 mg PO AT BEDTIME February 24, 2024 2:12pm July 05, 2024 1:22pm Start: 10-31-2020 End: 09-04-2024 take 1 tablet by mouth once daily atorvastatin (Lipitor) 80 MG tablet Take 1 tablet by mouth Nightly. 11/14/2020 Active Start: 08-07-2020 End: 10-30-2020 take 1 tablet by mouth at bedtime Atorvastatin 20 mg tablet Discontinued 20 mg PO AT BEDTIME 90 3 September 12, 2020 4:36pm October 30, 2020 6:44pm Comment on above: Take 1 tablet by adrianne once daily. Take 4 tablets by mo [facility] daily at bedtime. For cholesterol. benzonatate 100 mg oral capsule (20 sources) Non-narcotic Antitussive Start: End: 3 take 2 capsules by mouth three times daily as needed for cough benzonatate (TESSALON PERLE) 100 mg capsule Indications: Viral URI with cough , Acute cough , SOBOE (shortness of breath on exertion) Take 2 capsules by mouth three times daily as needed for cough for up to 10 days. 60 capsule 05/14/2022 05/24/2022 Start: 05-02-2022 End: 05-12-2022 take 2 capsules by mouth three times daily as needed benzonatate (TESSALON PERLE) 100 mg capsule Indications: Viral URI with cough Take 2 capsules by mouth three times daily as needed for up to 10 days. 60 capsule 0 05/02/2022 05/12/2022 Active Start: 05-09-2021 End: 07-05-2024 take 1 capsule by mouth three times daily as needed for cough benzonatate (Tessalon) 100 MG capsule Take 100 mg by mouth 3 times daily as needed for cough. 12/16/2021 Active Comment on above: Take 1 capsule by mo uth three times daily as needed. Take 2 capsules by m outh three times daily as needed for up to 10 days. Take 2 capsules by m outh three times daily as needed for cough for up to 10 days. betamethasone 0.5 mg/ml / clotrimazole 10 mg/ml topical cream (2 sources) Azole Antifungal, Corticosteroid Start: 03-26-20 clotrimazole-be tamethasone (LOTRISONE) cream Apply to affected area two times a day. 45 g 1 03/26/2024 Active bisacodyl 5 mg delayed release oral tablet (1 source) Stimulant Laxative Start: 11-18-19 take 5 mg by mouth once daily as needed for constipation 5 mg, Oral, DAILY PRN, Constipation, Starting on 11/17/20 at 1844 First line therapy for constipation. calcium carbonate 500 mg chewable tablet (2 sources) Start: 11-14-19 End: 12-15-19 Calcium Carbonate / Vitamin D (20 sources) take 1 tablet by mouth once in the morning Calcium Carbonate-Vitam in D (CALCIUM-VITAMI N D3 PO) Take 1 tablet by mouth in the morning and 1 tablet in the evening. 600mg Ca - 800 IUs Vit D. Active take 1 tablet by adrianne once in the morning Calcium Carbonate-Vitamin D (CALCIUM-VIT MAGALLANES D3 PO) Take 1 tablet by mouth in the morning and 1 tablet in the evening. 600mg Ca - 800 IUs Vit D. 0 Active Calcium Carbonate / vitamin D3 (19 sources) Start: 03-20-2024 Start: 03-20-2024 calcium carbon ate-vitamin D3 (Calcium 600 with Vitamin D3) Active 1 {tbl} PO DAILY March 20, 2024 2:00pm 1200 mg/ 800 Start: 02-24-2024 End: 03-20-2024 calcium carbonate-vitamin D3 (Calcium 600 with Vitamin D3) Discontinued 1 {tbl} PO DAILY February 24, 2024 2:12pm March 20, 2024 2:03pm Start: 07-01-2023 End: 02-24-2024 calcium carbonate-vitamin D3 Discontinued 1200.8 {tbl} PO DAILY July 01, 2023 1:00am February 24, 2024 2:14pm Start: 07-01-2023 calcium carbon ate-vitamin D3 Active PO DAILY July 01, 2023 1:00am cephalexin 500 mg oral capsule (3 sources) Cephalosporin Antibacterial Start: 11-21-2023 End: 11-28-2023 cephalexin (Keflex) 500 MG capsule Take 1 capsule (500 mg) by mouth in the morning and 1 capsule (500 mg) at noon and 1 capsule (500 mg) in the evening and 1 capsule (500 mg) before bedtime. Do all this for 7 days. 28 capsule 11/21/2023 11/28/2023 Active Start: 11-28-2021 End: 12-05-2021 take 1 capsule by mouth twice daily cephALEXin (KEFLEX) 500 mg capsule Indications: Urinary frequency Take 1 capsule by mouth twice daily for 7 days. 14 capsule 0 11/28/2021 12/05/2021 Active Comment on above: Take 1 capsule by mo [facility] twice daily for 7 days. cholecalciferol 0.025 mg oral tablet (20 sources) Vitamin D Start: 06-23-19 take 5 tablets by mouth once daily cholecalciferol (VITAMIN D3) 1,000 unit tab tablet Take 5 tablets by mouth once daily. 06/23/2022 Active Start: 10-30-2020 End: 07-01-2023 take 1 capsule by mouth once daily Cholecalciferol (Vitamin D3) 25 mcg (1,000 unit) Capsule Discontinued 25 ug PO DAILY October 30, 2020 12:00am July 01, 2023 2:17pm supplement Start: 12-14-2019 End: 06-23-2022 take 1 tablet by mouth once daily cholecalciferol (VITAMIN D3) 5,000 unit tab Take 5,000 Units by mouth once daily. 06/23/2022 Discontinued End: 11-02-2022 take 1 tablet by mouth in the morning cholecalciferol (Vitamin D-3) 50 MCG (1999 UT) tablet Take 1,000 Units by mouth in the morning. 0 11/02/2022 Discontinued vitamin D (ALPESH CALCIFEROL) 50 MCG (2000 UT) TABS tablet Take 2,000 Units by mouth daily 0 Active Comment on above: Take 5,000 Units by mouth once daily. Take 5 tablets by mo [facility] once daily. clopidogrel 75 mg oral tablet (20 sources) P2Y12 Platelet Inhibitor Start: End: take 1 tablet by mouth in the morning clopidogrel (Plavix) 75 MG tablet Take 1 tablet by mouth in the morning. 02/18/2022 Active Comment on above: Take 1 tablet by adrianne th once daily. Take 1 tablet by adrianne th once daily. ([facility]) 1 ml diphenhydrAMINE hydrochloride 50 mg/ml cartridge (1 source) Histamine-1 Receptor Antagonist Start: 50 mg, Intravenous, EVERY 6 HOURS PRN, Itching, Other, Administer to patient if she develops a rash from amiodarone infusion., Starting on Wed11/10/20 at 1941 docusate sodium 50 mg / sennosides, residential 8.6 mg oral tablet (1 source) Start: take 2 tablets by mouth once daily 2 tablet, Oral, NIGHTLY, First dose on Wed11/04/20 at 2100, Post-op 0.4 ml enoxaparin sodium 100 mg/ml prefilled syringe (3 sources) Low Molecular Weight Heparin Start: End: inject 40 mg by subcutaneous injection once daily 40 mg, Subcutaneous, DAILY, First dose on Wed11/18/20 at 0900 Start: 11-03-2020 End: 11-03-2020 inject 40 mg by subcutaneous injection once daily 40 mg, Subcutaneous, DAILY, First dose on Wed11/03/20 at 0900 escitalopram 10 mg oral tablet (20 sources) Serotonin Reuptake Inhibitor Start: 01-02-2021 End: 07-05-2024 take 1 tablet by mouth in the morning escitalopram (Lexapro) 10 MG tablet Take 1 tablet by mouth in the morning. 02/19/2022 Active Comment on above: Take 1 tablet by adrianne once daily. furosemide 40 mg oral tablet (20 sources) Loop Diuretic Start: 12-27-2021 End: 11-27-2024 take 1 tablet by mouth in the morning furosemide (Lasix) 40 MG tablet Take 1 tablet by mouth in the morning and 1 tablet before bedtime. 12/27/2021 Active Start: 01-28-2021 End: 07-01-2023 take 1 tablet by mouth twice daily Furosemide 40 mg tablet Discontinued 40 mg PO TWICE A DAY 180 3 August 12, 2022 4:32pm July 01, 2023 2:36pm Start: 01-17-2021 End: 05-14-2021 take 1 tablet by mouth once daily Furosemide 40 mg tablet Discontinued 40 mg PO DAILY 90 3 February 05, 2021 11:35am May 09, 2021 12:35pm Start: 11-15-2020 take 40 mg by mouth once daily 40 mg, Oral, DAILY, First dose on Wed11/15/20 at 0900 Start: 11-08-2020 End: 11-10-2020 20 mg, Intravenous, 2 TIMES DAILY, First dose on Wed11/08/20 at 0900 Start: 11-07-2020 End: 11-07-2020 40 mg, Intravenous, ONCE, On Wed11/07/20 at 0700, For 1 dose Start: 11-05-2020 End: 11-05-2020 40 mg, Intravenous, ONCE, On Wed11/05/20 at 0645, For 1 dose Comment on above: Take 1 tablet by adrianne twice daily. (per cardiology) glucagon (rdna) 1 mg injection (1 source) Antihypoglycemic Agent Start: take 1 mL intravenously every hour 1 mg, Intramuscular, PRN, Low blood sugar, Blood glucose less than 70 mg/dL and patient NOT ALERT or NPO and does not have IV access., Starting on Wed11/04/20 at 0818 After administration, attempt intravenous access and start D5W at 100 mL/hr. Repeat blood glucose in 15 minutes x2 and notify provider. 150 ml glucose 50 mg/ml injection (3 sources) Start: 15 g, Oral, PRN, Low blood sugar, Starting on Wed11/04/20 at 1211 If blood glucose less than 50 mg/dL and patient ALERT and TOLERATING PO, give 2 tubes glucose gel. If blood glucose less than 70 mg/dL and patient ALERT and TOLERATING PO, give 1 tube glucose gel. Repeat blood glucose in 15 minutes. If blood glucose is less than 70 mg/dL, repeat treatment and recheck blood glucose in 15 minutes x2 and notify provider. Post-op Start: 11-04-2020 12.5 g, Intrav enous, PRN, Low blood sugar, Blood glucose less than 70 mg/dL and patient NOT ALERT or NPO., Starting on 11/04/20 at 1211 If patient does not respond within 5 minutes, repeat dose x1. Start D5W at 100 mL/hour until ordering provider can be reached. Repeat blood glucose in 15 minutes. If blood glucose is less than 70 mg/dL, repeat treatment and recheck blood glucose in 15 minutes x2. If using Glucostabilizer, dose as instructed per system. Post-op Start: 11-04-2020 100 mL/hr, Int ravenous, at 100 mL/hr, PRN, Low blood sugar, Starting on Wed11/04/20 at 1211 Start infusion following administration of dextrose 50% or glucagon. Post-op labetalol hydrochloride 5 mg/ml injectable solution (1 source) beta-Adrenergic Twyla Start: 11-17-2020 10 mg, Intravenous, EVERY 10 MIN PRN, High Blood Pressure, Starting on Wed11/17/20 at 1843 Administer 10 mg IV every 10 min if SBP is 140 mmHg or greater OR DBP is 110 mmHg or greater as long as HR is greater than 65bpm until goal BP has been achieved and to a max of 30 mg Notify provider if SBP is 140 mmHg or greater OR DBP is 110 mmHg or greater after 3 consecutive doses. If HR is less than 65 call MD for further orders levothyroxine sodium 0.025 mg oral tablet (20 sources) l-Thyroxine Start: 04-09-2021 End: 11-01-2024 take 1 tablet by mouth once daily for thyroid dysfunction levothyroxine (Synthroid, Levoxyl) 25 MCG tablet TAKE 1 TABLET BY MOUTH ONCE DAILY ON AN EMPTY STOMACH FOR THYROID 02/12/2022 Active Comment on above: Take 1 tablet by mouth once daily. Take on empty stomach. For thyroid. lidocaine 0.04 mg/mg medicated patch (1 source) Antiarrhythmic, Amide Local Anesthetic Start: 11-05-2020 apply 1 dose transdermal route every twelve hours 1 patch, Transdermal, Administer over 12 Hours, DAILY, First dose on Wed11/05/20 at 0545 Apply patch to chest. Patch may remain in place for up to 12 hours in any 24 hour period. LORazepam 0.5 mg oral tablet (6 sources) Benzodiazepine Start: 11-15-2020 take 0.5 mg by mouth every four hours as needed for anxiety 0.5 mg, Oral, EVERY 4 HOURS PRN, Anxiety, Starting on Wed11/15/20 at 0545 Substituted for Clorazepate (TRANXENE). Start: 11-14-2020 End: 11-15-2020 take 0.5 mg by mouth every six hours as needed for anxiety 0.5 mg, Oral, EVERY 6 HOURS PRN, Anxiety, Starting on Wed11/14/20 at 1415 Substituted for Clorazepate (TRANXENE). Start: 11-05-2020 End: 11-14-2020 0.5 mg, Intravenous, EVERY 1 2 HOURS, First dose on Wed11/05/20 at 1030 Start: 11-05-2020 End: 11-05-2020 Starting on Wed11/05/20 at 1 007, For 1 dose RAMON BAKER: sy override Start: 10-31-2020 End: 11-14-2020 take 0.5 mg by mouth twice daily 0.5 mg, Oral, 2 TIMES DAILY, First dose on Wed11/05/20 at 1115 Substituted for Clorazepate (TRANXENE). 50 ml magnesium sulfate 40 mg/ml injection (1 source) Start: 11-04-2020 2,000 mg, Intravenous, at 25 mL/hr, Administer over 2 Hours, PRN, Other, hypomagnesemia, Starting on Wed11/04/20 at 1211 Via central line - If patient has acute/chronic renal failure do not initiate protocol, call MD for management. Mag level Dose Less than or equal to 1.0 Give 2 grams at 1 gm/hr. Call MD. Monitor BP and EKG. Repeat Magnesium level 60 minutes post infusion. 1.1 - 1.5 &nbsp ; & nbs p; Give 2 grams at 1 gm/hr. Repeat Magnesium level 60 minutes post infusion 1.6 - 1.9 &nbsp ; & nbs p; Give 2 grams at 1 gm/hr. Repeat Magnesium level 60 minutes post infusion Greater than 1.9 &nbsp ; No coverage Post-op 24 hr metoprolol succinate 50 mg extended release oral tablet (20 sources) b e t a - A d r e n e r g i c B l o c k e r Start: 09-14-2024 End: 09-15-2024 t a k e 1 t a b l e t b y m o u t h o n c e d a i l y Start: 07-01-2023 End: 09-14-2024 take 2 tablets by mouth once daily Metoprolol Succinate 50 mg tablet extended release 24 hr Discontinued 25 mg PO DAILY July 01, 2023 1:00am September 14, 2024 10:37am Start: 10-14-2022 End: 07-01-2023 Metoprolol Tartrate 50 mg Ta blet Discontinued 25 mg PO DAILY October 14, 2022 12:00am July 01, 2023 2:14pm Start: 10-14-2022 End: 07-01-2023 take 25 mg by mouth once daily Metoprolol Tartrate Dis continued 25 MG PO DAILY October 14, 2022 12:00am July 01, 2023 2:14pm Start: 08-04-2021 take 1 tablet by adrianne th every twenty-four hours in the morning metoprolol succinate XL (Toprol-XL) 50 MG 24 hr tablet Take 25 mg by mouth in the morning. 08/04/2021 Active Start: 08-04-2021 metoprolol suc cinate (TOPROL XL) 50 MG extended release tablet Take 25 mg by mouth daily 0 08/04/2021 Active Start: 07-10-2021 End: 07-01-2022 take 2 tablets by mouth once daily Metoprolol Succinate 50 mg tablet extended release 24 hr Discontinued 25 mg PO DAILY 22 04July 10, 2021 11:13am July 01, 2022 3:46pm Start: 07-10-2021 End: 07-01-2022 take 1 tablet by mouth once daily metoprolol succinate ER (TOPROL XL) 50 mg 24 hr tablet Take 25 mg by mouth once daily. 08/04/2021 Active Start: 06-24-2021 End: 07-10-2021 take 1 tablet by mouth once daily Metoprolol Succinate 50 mg tablet extended release 24 hr Discontinued 50 mg PO DAILY 22 04June 24, 2021 1:00am July 10, 2021 11:14am Start: 11-10-2020 End: 11-10-2020 2.5 mg, Intravenous, ONCE, O n Wed11/10/20 at 1530, For 1 dose Start: 11-10-2020 End: 11-10-2020 Starting on Wed11/10/20 at 1 507, For 1 dose Lance CASAS: cabinet override Start: 11-07-2020 5 mg, Intraven ous, EVERY 5 MIN PRN, Tachycardia, HR>130, Starting on Wed11/07/20 at 1829, For 2 doses Start: 11-05-2020 5 mg, Intraven ous, EVERY 6 HOURS PRN, High Blood Pressure, For SBP >155, Starting on Wed11/05/20 at 0623 Start: 12-14-2019 End: 11-14-2020 take 25 mg by mouth twice daily 25 mg, Oral, 2 TIMES D AILY, First dose on Wed10/31/20 at 0900, For 8 doses Comment on above: Take 25 mg by mouth once daily. miconazole nitrate 0.02 mg/m g topical powder (2 sources) Azole Antifungal Start: 11-14-2020 Start: 11-13-2020 apply 1 dose topically twice d aily Topical, 2 TIMES DAILY, First dose on Wed11/13/20 at 0900 Apply to skin folds nitroglycerin 0.4 mg sublingual tablet (20 sources) Nitrate Vasodilator Start: 01-28-2021 nitroglyce rin sublingual (NITROQUICK) 0.4 mg SL tablet Dissolve 1 tablet under the tongue every 5 minutes as needed. 25 tablet 1 01/28/2021 Active Start: 10-31-2020 End: 11-02-2020 5-200 mcg/min (1.5-60 mL/hr) , Intravenous, at 1.5-60 mL/hr, CONTINUOUS, Starting on Wed10/31/20 at 0315 Titrate to chest pain free Dose Range: 5 to 200 mcg/min Initial dose: 5 mcg/min Max dose: 200 mcg/min Contact physician if max dose does not achieve desired response If rate LESS than 20 mcg/min titrate by 5 mcg/min every 5 minutes to goal If rate GREATER than or equal to 20 mcg/min titrate by 10 mcg/min every 5 minutes to goal Use of nitroglycerin is not recommended if SBP less than 90 mmHg; notify physician if indicated Comment on above: Dissolve 1 tablet un rossy the tongue every 5 minutes as needed. nortriptyline 25 mg oral capsule (20 sources) Tricyclic Antidepressant Start: 03-13-20 End: 07-05-19 take 1 capsule by mouth in the morning nortriptyline (Pamelor) 25 MG capsule Take 25 mg by mouth in the morning and 25 mg before bedtime. 03/13/2022 Active Start: 07-09-2021 End: 12-22-2021 take 1 capsule by mouth twice daily nortriptyline capsule Discontinued 25 mg SL/PO TWICE A DAY July 09, 2021 1:00am December 22, 2021 11:47am Start: 01-28-2021 End: 02-14-2024 take 1 capsule by mouth twice daily Nortriptyline 25 mg capsule Discontinued 25 mg PO TWICE A DAY December 22, 2021 12:00am July 01, 2023 2:19pm Start: 10-31-2020 End: 11-06-2020 take 50 mg by mouth twice daily 50 mg, Oral, 2 TIMES D AILY, First dose on Wed10/31/20 at 0900 Start: 05-03-2020 End: 11-14-2020 take 25 mg by mouth once daily 25 mg, Oral, NIGHTLY, F irst dose on Wed11/06/20 at 2100, For 3 doses Start: 01-11-2018 End: 01-12-2019 take 1 capsule by mouth once Nortriptyline (Pamelor) 2 5 mg capsule Discontinued 25 mg PO ONCE January 11, 2018 12:00am January 12, 2019 1:05pm Comment on above: Takes 25 mg twice a day to three times daily as needed for flare up of depression symptoms. Stops when not needing Take 1 capsule by mo uth twice daily. nystatin 1 billion unit powd (2 sources) Start: nystatin 1 billion unit powd 1 Application four times a day as needed. 1 Each 2 03/26/2024 Active ondansetron 4 mg oral tablet (20 sources) Serotonin-3 Receptor Antagonist Start: take 1 tablet by mouth every six hours as needed for nausea Start: 05-14-2022 take 1 tablet by adrianne th every six hours as needed for nausea and vomiting ondansetron ODT (Zofran-ODT) 4 MG disintegrating tablet DISSOLVE 1 TABLET IN MOUTH EVERY 6 HOURS NEEDED FOR NAUSEA AND VOMITING 05/14/2022 Active Start: 11-17-2020 4 mg, Intraven ous, EVERY 6 HOURS PRN, Nausea, Vomiting, Starting on Wed11/17/20 at 1843 Start: 11-17-2020 End: 11-17-2020 take 4 mg by mouth once 4 mg, Oral, ONCE, On 10/23 at 1015, For 1 dose Start: 11-04-2020 End: 11-15-2020 4 mg, Intravenous, EVERY 8 H OURS PRN, Nausea, Starting on Wed11/04/20 at 1211, Post-op Comment on above: Take 1 tablet by adrianne th every 6 hours as needed for nausea/vomiting. polyethylene glycol 3350 170 00 mg powder for oral solution (2 sources) Osmotic Laxative Start: 11-14-2020 End: 12-14-2020 Start: 11-04-2020 17 g, Oral, DA HARPREET, First dose on Wed11/04/20 at 1230, Post-op polymyxin b 97864 unt/ml / trimethoprim 1 mg/ml ophthalmic solution (2 sources) Dihydrofolate Reductase Inhibitor Antibacterial, Polymyxin-class Antibacterial Start: 05-02-2022 End: 05-09-2022 take 1 drop(s) into the eye(s) four times daily trimethoprim-polymyxin (POLYTRIM) 10,000 unit- 1 mg/mL ophthalmic solution Indications: Acute conjunctivitis of both eyes, unspecified acute conjunctivitis type Use 1 Drop in both eyes four times daily for 7 days. 10 mL 0 05/02/2022 05/09/2022 Active Comment on above: Use 1 Drop in both eyes four times daily for 7 days. potassium chloride 10 meq extended release oral tablet (20 sources) Start: 12-27-2024 End: 01-23-2025 take 2 tablets by mouth once daily Start: 07-01-2023 End: 12-27-2024 take 1 tablet by mouth once daily Potassium Chloride 10 mEq tablet extended release Discontinued 20 meq PO DAILY 60 August 20, 2023 11:05am December 27, 2024 12:37pm Pt needs 10 meq pills to swallow easier Start: 07-01-2023 End: 08-20-2023 take 2 tablets by mouth once daily Potassium Chloride 10 mEq tablet extended release Active 20 meq PO DAILY 60 August 20, 2023 11:05am Start: 07-01-2023 take 20 mEq by mouth once brenna y Potassium Chloride Active 20 MEQ PO DAILY 60 July 01, 2023 2:36pm Start: 01-07-2022 End: 07-01-2023 take 1 tablet by mouth twice daily Potassium Chloride 10 mEq tablet extended release Discontinued 20 meq PO TWICE A DAY 120 February 03, 2023 4:05pm July 01, 2023 2:36pm Pt needs 10 meq pills to swallow easier Start: 01-07-2022 End: 07-01-2023 take 2 tablets by mouth twice daily Potassium Chloride 10 mEq tablet extended release Discontinued 20 meq PO TWICE A DAY 120 February 03, 2023 4:05pm July 01, 2023 2:36pm Start: 01-07-2022 End: 07-01-2023 take 20 mEq by mouth twice daily Potassium Chloride Discontinued 20 MEQ PO TWICE A DAY 120 February 03, 2023 4:05pm July 01, 2023 2:36pm Start: 12-22-2021 take 1 tablet by adrianne th in the morning potassium chloride CR (Klor-Con M20) 20 MEQ ER tablet Take 1 tablet by mouth in the morning and 1 tablet before bedtime. 12/22/2021 Active Start: 12-22-2021 End: 06-23-2022 take 1 tablet by mouth twice daily Potassium Chloride 20 mEq tablet extended release Discontinued 20 meq PO TWICE A DAY 120 2 December 22, 2021 12:00am January 07, 2022 12:51pm Start: 06-09-2021 End: 06-09-2021 take 2 tablets by mouth twice daily Potassium Chloride 20 mEq tablet extended release Discontinued 40 meq PO TWICE A DAY 60 June 09, 2021 4:26pm June 09, 2021 5:50pm Start: 06-09-2021 End: 06-09-2021 take 40 mEq by mouth twice daily Potassium Chloride Discontinued 40 MEQ PO TWICE A DAY 60 June 09, 2021 4:26pm June 09, 2021 5:50pm Start: 04-02-2021 End: 12-16-2021 take 1 tablet by mouth twice daily Potassium Chloride 20 mEq tablet extended release Discontinued 20 meq PO TWICE A DAY 22 05April 02, 2021 12:23pm June 09, 2021 4:26pm Start: 02-04-2021 End: 04-02-2021 take 2 tablets by mouth once daily Potassium Chloride 20 mEq tablet extended release Discontinued 20 meq PO .COMPLEX 22 05February 04, 2021 5:35pm April 02, 2021 12:23pm 20 mEq PO Take 4 tabs (80mEq) tonight and then take 2 tabs (40mEq) daily; Start: 11-04-2020 20 mEq, Oral, PRN, hypokalemia, Starting on Wed11/04/20 at 1211 If patient is intubated or not tolerating PO use PRN IV replacement protocol Potassium level Dose < 3.0 = Give 20 mEq x 3 doses 3.0-3.6 = Give 20 mEq x 2 doses Recheck potassium level 2 hour after replacement given, place order for lab under [place] If potassium level < 3 after 1st replacement: Call surgeon. Do not crush or break. Post-op Start: 11-04-2020 20 mEq, Intrav enous, at 50 mL/hr, Administer over 60 Minutes, PRN, Other, hypokalemia, Starting on Wed11/04/20 at 1211 Via central line - do not use if urine output below 30 mL/hr or if patient is on total parental nutrition, peritoneal or hemodialysis. Potassium Level Dose: Less than or equal to 3.5-Give 20mEq x 2 doses. Less than or equal to 2-Call provider. Repeat potassium level 2 hour post-infusion and follow protocol as indicated. Post-op Start: 11-03-2020 End: 11-03-2020 40 mEq, Oral, ONCE, On Wed at 0645, For 1 dose Do not crush, chew, or suck on tablet. Tablet may also be broken in half and each half swallowed separately. Start: 10-31-2020 End: 10-31-2020 40 mEq, Oral, ONCE, On Wed at 0300, For 1 dose Do not crush, chew, or suck on tablet. Tablet may also be broken in half and each half swallowed separately. Comment on above: Take 1 tablet by adrianne twice daily. Take 2 tablets by mo [facility] twice daily. ([facility]; needs 10meq; 20 meq too large) predniSONE 10 mg oral tablet (16 sources) Start: 11-04-2021 End: 11-13-2021 predniSONE (DELTASONE) 10 mg tablet Take 4 tabs daily for 3 days, then 2 tabs daily for 3 days, then 1 tab daily for 3 days with food. 21 tablet 0 11/04/2021 11/13/2021 Active Start: 01-11-2018 End: 01-12-2019 take 1 tablet by mouth once daily Prednisone 5 mg tablet Discontinued 5 mg PO daily January 11, 2018 12:00am January 12, 2019 1:05pm Comment on above: Take 4 tabs daily fo r 3 days, then 2 tabs daily for 3 days, then 1 tab daily for 3 days with food. QUEtiapine 25 mg oral tablet (1 source) Atypical Antipsychotic Start: 1 take 12.5 mg by mouth twice daily as needed 12.5 mg, Oral, 2 TIMES DAILY PRN, Agitation, Starting on Wed11/05/20 at 1045 Resmetirom (1 source) Start: 5 take 1 tablet by mouth once daily Resmetirom (Rezdiffra) 80 mg tablet (5 sources) Start: 5 take 1 tablet by mouth once daily Resmetirom (Rezdiffra) 80 mg tablet Active 80 mg PO DAILY September 04, 2024 12:00am Fatty liver disease Start: 09-04-2024 take 1 tablet by [facility] once daily Resmetirom (Rezdiffra) 80 mg tablet Active 80 mg PO DAILY September 04, 2024 12:00am RESMETIROM PO (4 sources) RESMETIROM PO Ta ke by mouth. Active 3 ml sodium chloride 9 mg/ml injection (10 sources) Start: 11-17-2020 End: 11-20-2020 5-40 mL, Intravenous, PRN, L ine Care, Per Financial Operations Clerk Request, Starting on Wed11/17/20 at 1846, For 72 hours May use order for Line Care after every IV line use and Agitated Saline Bubble Study. Administration for Bubble Study per mat maker request for only. Remove 1 mL 0.9% sodium chloride from 10 mL syringe for creating agitated saline. If following IV push medication, administer flush at same rate as the IV push. Flush volume is determined by type of infusion therapy being given. For non-viscous solutions use: Peripheral IV = 5 mL Midline or Central Line = 10 mL/lumen For viscous solutions (i.e. blood components, parenteral nutrition, contrast media, or after obtaining blood sample) use: Peripheral IV = 10 mL Midline or Central Line = 20 mL/lumen Start: 11-05-2020 Intravenous, a t 50 mL/hr, CONTINUOUS, Starting on Wed11/17/20 at 1915 Start: 11-05-2020 End: 11-05-2020 250 mL (3.87 mL/kg), Intrave nous, at 1,000 mL/hr, Administer over 0.25 Hours, ONCE, On Wed11/05/20 at 0545, For 1 dose Start: 11-04-2020 End: 11-10-2020 Intravenous, at 20 mL/hr, CONTINUOUS, Starting on Wed11/04/20 at 1230 20 ml/hr to SP(introducer) and WT on [place] Johnathon Catheter; once [place] discontinued run at 20 ml/hr through SP(introducer) Post-op Start: 11-04-2020 End: 11-04-2020 250 mL (3.87 mL/kg), Intrave nous, at 1,500 mL/hr, Administer over 10 Minutes, PRN, 2nd fluid bolus challenge: PAD below goal (18) and Low CI (less than 2.0) and/or Low BP (less than 90 SBP and/or less than 60 MAP) and/or Low urine output (less than 30ml/hr) per hemodynamic goals, Starting on 11/04/20 at 1211, For 1 dose If first fluid bolus challenge unsuccessful at reaching hemodynamic goals use second fluid bolus challenge if hgb greater than 7.5 and PAD below goal (18) and Low CI (less than 2.0) and/or Low BP (less than 90 SBP and/or less than 60 MAP) and/or Low urine output (less than 30ml/hr) per hemodynamic goals Notify surgeon for further orders if bolus does not help reach hemodynamic goals If hgb less than 7.5 notify surgeon for orders. Post-op Start: 10-31-2020 take 1 dose intraven ously twice daily 5-40 mL, Intravenous, EVERY 12 HOURS SCHEDULED (2 times per day), First dose on Wed11/17/20 at 2100 For Line Patency: Peripheral IV = 5 mL; Midline or Central Line = 10 mL/lumen. If following IV push medication, administer flush at same rate as the IV push. Flush volume is determined by type of infusion therapy being given. For non-viscous solutions use: Peripheral IV = 5 mL Midline or Central Line = 10 mL/lumen For viscous solutions (i.e. blood components, parenteral nutrition, contrast media, or after obtaining blood sample) use: Peripheral IV = 10 mL Midline or Central Line = 20 mL/lumen vitamin b12 1 mg oral capsule (20 sources) Vitamin B12 Start: 05-22-2022 take 1 capsule by [facility] once daily take 1 tablet by mouth in the mo rning cyanocobalamin (Vitamin B-12) 1000 MCG tablet Take 1,000 mcg by mouth in the morning. Active Comment on above: Take 1,000 mcg by [facility]. Vitamin E 800 unit capsule (6 sources) Start: 09-04-2024 take 1 capsule by mouth once daily Start: 09-04-2024 take 1 capsule by mouth once d aily Vitamin E 800 unit capsule Active 800 U PO daily September 04, 2024 12:00am (1 source) Start: 11-17-2020 End: 11-20-2020 1.65 mg (1.5 mL), Intravenou s, IMG ONCE PRN, Other, Suboptimal Echo Image, Starting on Wed11/17/20 at 1846, For 72 hours Administer up to 1.65 mg via slow IVP for suboptimal echocardiogram enhancement. May administer as concentrated dose or diluted in 8.5 mL of 0.9% sodium chloride for a total volume of 10 mL. May administer as divided doses to reach optimal image enhancement. Completed/Discontinued Medications Medication Drug Class(es) Dates Sig (Normalized) Sig (Original) 20 ml albumin human, residential 250 mg/ml injection (2 sources) Human Serum Albumin Start: 11-05-2020 End: 11-05-2020 25 g, Intravenous, at 100 mL/hr, Administer over 60 Minutes, ONCE, On Wed11/05/20 at 0545, For 1 dose Infusion rate depends on indication and clinical situation. In emergencies, may administer as rapidly as necessary to improve clinical condition. After initial volume replacement: &nbs p;5%: Do not exceed 2 to 4 mL/minute in patients with normal plasma volume; 5 to 10 mL/minute in patients with hypoproteinemia 25%: Do not exceed 1 mL/minute in patients with normal plasma volume; 2 to 3 mL/minute in patients with hypoproteinemia Start: 11-04-2020 End: 11-04-2020 25 g, Intravenous, PRN, Othe r, first fluid bolus challenge PRN: PAD below goal (18) and Low CI (less than 2.0) and/or Low BP (less than 90 SBP and/or less than 60 MAP) and/or Low urine output (less than 30ml/hr) per hemodynamic goals, Starting on Wed11/04/20 at 1211, For 1 dose Use if hgb greater than 7.5 and PAD below goal (18) and Low CI (less than 2.0) and/or Low BP (less than 90 SBP and/or less than 60 MAP) and/or Low urine output (less than 30ml/hr) per hemodynamic goals If hemodynamic goals unattained, proceed to second fluid bolus challenge. If hgb less than 7.5 notify surgeon for orders. Post-op amiodarone hydrochloride 200 mg oral tablet (20 sources) Antiarrhythmic Start: 01-17-2021 End: 02-12-2021 Amiodarone 200 mg tablet Discontinued 200 mg PO DAILY January 17, 2021 4:27pm February 12, 2021 4:47pm Decreased to 200 mg daily then stop after current supply is used. Start: 01-16-2021 End: 01-17-2021 take 2 tablets by mouth once daily Amiodarone 200 mg tablet Discontinued 400 mg PO DAILY January 16, 2021 12:00am January 17, 2021 4:29pm Start: 01-16-2021 End: 01-17-2021 take 400 mg by mouth once daily Amiodarone Discontinued 400 MG PO DAILY January 16, 2021 12:00am January 17, 2021 4:29pm Start: 11-14-2020 End: 01-16-2021 take 1 tablet by mouth once daily Amiodarone 400 mg Tablet Discontinued 400 mg PO DAILY January 02, 2021 12:00am January 16, 2021 3:15pm anitarrhythmic Start: 11-11-2020 take 200 mg by mouth twice daily 200 mg, Oral, 2 TIMES DAILY, First dose on Wed11/11/20 at 1415 calcium chloride 0.001 meq/ml / glucose 50 mg/ml / potassium chloride 0.004 meq/ml / sodium chloride 0.103 meq/ml / sodium lactate 0.028 meq/ml injectable solution (1 source) Start: 11-06-2020 End: 11-07-2020 Intravenous, at 50 mL/hr, CONTINUOUS, Starting on Wed11/06/20 at 0730 ceFAZolin 2000 mg injection (1 source) Cephalosporin Antibacterial Start: 11-04-2020 End: 11-06-2020 2,000 mg, Intravenous, EVERY 8 HOURS, 5 doses, First dose on Wed11/04/20 at 1600, Last dose on Wed11/06/20 at 0000, Post-op cefTRIAXone (Rocephin) 2,000 mg in sodium chloride 0.9 % 50 mL IVPB Mini-Bag Plus (2 sources) Start: 11-21-2023 End: 11-21-2023 2,000 mg, IntraVENous, at 100 mL/hr, Administer over 30 Minutes, Once, On 11/21/23 at 0125, For 1 dose, Mini-Bag Plus bag, Suspected Indication (Select all that apply): Urinary Tract Infection cefuroxime 250 mg oral tablet (15 sources) Cephalosporin Antibacterial Start: 03-19-2019 End: 01-16-2020 take 2 tablets by mouth twice daily Cefuroxime Axetil 250 MG tablet Discontinued 500 mg PO TWICE A DAY March 19, 2019 12:00am January 16, 2020 1:01pm Start: 03-19-2019 End: 01-16-2020 take 500 mg by mouth twice daily Cefuroxime Axetil Discontinued 500 MG PO TWICE A DAY March 19, 2019 12:00am January 16, 2020 1:01pm celecoxib 200 mg oral capsule (20 sources) Nonsteroidal Anti-inflammatory Drug Start: 05-09-2021 End: 06-25-2022 take 1 capsule by mouth once daily as needed for pain Celecoxib (Celebrex) 200 mg capsule Discontinued 200 mg PO DAILY as needed for Pain May 09, 2021 1:00am June 25, 2022 11:48am Comment on above: Take 1 capsule by [facility] once daily. take with food. for back pain chlorhexidine gluconate 1.2 mg/ml mouthwash (5 sources) Start: 11-04-2020 End: 11-08-2020 take 15 mL by mouth twice daily 15 mL, Mouth/Throat, 2 TIMES DAILY, First dose on Wed11/04/20 at 1230, For 7 days Rinse and spit. Do not swallow. Post-op Start: 11-03-2020 End: 11-04-2020 apply 1 dose topically once Topical, ONCE, On 11/04 at 0600, For 1 dose Wash with wipes per hospital protocol Start: 11-03-2020 End: 11-04-2020 15 mL, Mouth/Throat, ONCE, O n Wed11/04/20 at 0600, For 1 dose Swish and spit 15mL then morning (0600) prior to surgery. clorazepate dipotassium 3.75 mg oral tablet (16 sources) Benzodiazepine Start: 08-21-2020 End: 02-17-2021 take 1 tablet by mouth twice daily Clorazepate Dipotassium 3.75 mg tablet Discontinued 3.75 mg PO TWICE A DAY December 12, 2020 12:00am January 16, 2021 3:13pm Anxiety Anxiety disorder, unspecified 100 ml dexmedetomidine 0.004 mg/ml injection (1 source) Central alpha-2 Adrenergic Agonist Start: 11-04-2020 End: 11-07-2020 0.2-1.4 mcg/kg/hr 64.6 kg (3.23-22.61 mL/hr, rounded to 3.2-22.6 mL/hr), Intravenous, at 3.2-22.6 mL/hr, CONTINUOUS, Starting on Wed11/04/20 at 2015 For sedation, titrate to RASS +1 to -1 Dose Range: &nbsp ;0.2 to 1.4 mcg/kg/hr In itial dose 0.2 mcg/kg/hr Ma x dose: 1.4 mcg/kg/hr Co ntact physician if max dose does not achieve desired response &nb sp;If RASS 1 or more points below goal, decrease dose by 0.1 mcg/kg/hr no faster than every 30 min If RASS at goal, continue same rate If RASS 1 or more points above goal, increase dose by 0.1 mcg/kg/hr no faster than every 30 min 2 ml digoxin 0.25 mg/ml injection (1 source) Cardiac Glycoside Start: 11-07-2020 End: 11-08-2020 250 mcg, Intravenous, EVERY 6 HOURS, First dose on Arianna 11/07/20 at 2315, For 4 doses donepezil hydrochloride 5 mg oral tablet (20 sources) Start: 05-14-2022 End: 12-17-2023 take 1 tablet by mouth once daily Donepezil (Aricept) 5 mg Tablet Discontinued 5 mg PO DAILY May 22, 2022 1:00am December 24, 2022 1:15pm Start: 04-20-2022 End: 04-20-2023 donepezil (ARICEPT) 10 mg ta blet Take 10 mg by mouth. 04/20/2022 06/23/2022 Discontinued Comment on above: Take 10 mg by mouth. Take 1 tablet by [facility] once daily. doxycycline hyclate 100 mg oral tablet (18 sources) Tetracycline-cla ss Drug Start: 05-14-2022 End: 05-29-2022 take 1 tablet by mouth twice daily Doxycycline Hyclate 100 mg Tablet Discontinued 100 mg PO TWICE A DAY May 22, 2022 1:00am May 29, 2022 11:17am Started 05/14/22 take for 10 days. Start: 11-04-2021 End: 11-11-2021 take 1 tablet by mouth twice daily doxycycline monohydrate 100 mg tablet Take 1 tablet by mouth twice daily for 7 days. 14 tablet 0 11/04/2021 11/11/2021 Active Comment on above: Take 1 tablet by adrianne th twice daily for 7 days. Take 1 tablet by adrianne th twice daily for 10 days. antibiotic, take with food enteric contrast (will be provided with radiology test) (9 sources) Start: 07-13-2022 End: 12-15-2022 enteric contrast (will be provided with radiology test) Indications: Acute colitis , Pancreatic lesion For CT ABD/PEL W IVCON Routine order Administer, As Directed One Time Only, via Oral, Rectal, both Oral and Rectal, Enteric Tube, Stoma or Indwelling Catheter, Enteric Contrast as designated per enteric contrast guidelines 1 Each 0 07/13/2022 12/15/2022 Discontinued Start: 07-13-[address] (will be provided with radiology test) Indications: Acute colitis , Pancreatic lesion For CT ABD/PEL W IVCON Routine order Administer, As Directed One Time Only, via Oral, Rectal, both Oral and Rectal, Enteric Tube, Stoma or Indwelling Catheter, Enteric Contrast as designated per enteric contrast guidelines 1 Each 0 07/13/2022 Active Comment on above: For CT ABD/PEL W IVC ON Routine order Administer, As Directed One Time Only, via Oral, Rectal, both Oral and Rectal, Enteric Tube, Stoma or Indwelling Catheter, Enteric Contrast as designated per enteric contrast guidelines ferrous sulfate 325 mg oral tablet (18 sources) Start: 03-19-20 End: 11-06-19 take 1 tablet by mouth once daily Ferrous Sulfate 325 MG tablet Discontinued 325 mg PO DAILY 30 0 March 19, 2019 12:00am October 30, 2020 6:44pm folic acid 1 mg oral tablet (15 sources) Start: 01-12-20 End: 01-13-20 take 1 tablet by mouth once daily Folic Acid 1 mg tablet Discontinued 1 mg PO daily January 11, 2018 12:00am January 12, 2019 1:04pm 1 ml heparin sodium, porcine 5000 unt/ml prefilled syringe (4 sources) Unfractionated Heparin, Anti-coagulant Start: 11-06-19 End: 11-08-19 inject 5000 [IU] by subcutaneous injection twice daily 5,000 Units, Subcutaneous, 2 TIMES DAILY, First dose on Wed11/05/20 at 0900 Start: 10-31-2020 End: 10-31-2020 4,000 Units (rounded from 4, 002 Units = 60 Units/kg 66.7 kg), Intravenous, ONCE, On Arianna 10/31/20 at 0300, For 1 dose Initial one time bolus Start: 10-31-2020 End: 11-02-2020 take 12 [IU] intravenously every hour 12 Units/kg/hr 66.7 kg (8.004 mL/hr, rounded to 8 mL/hr), Intravenous, at 8 mL/hr, CONTINUOUS, Starting on Arianna 10/31/20 at 0300 LOW Dose Heparin Weight Based Dosing (ACS/KY/ECMO) Bolus 60 units/kg IV x 1 (max 4000 units), then 12 units/kg/hr UNLESS due to patient weight rate exceeds 1000 units/hour (max initial rate) Initial rate for this patient: 12 units/kg/hr&nbs p; aPTT < 30 Heparin Full re-bolus Increase infusion by 2 units/kg/hr; notify prescriber aPTT 30-49.9 Heparin Half re-bolus Increase infusion by 1 unit/kg/hr aPTT 50-70.9 No bolus No change aPTT 71-95.9 Hold heparin for 60 min Decrease infusion by 1 units/kg/hr aPTT > 95.9 Hold heparin for 60 min Decrease infusion by 2 units/kg/hr; notify prescriber Check aPTT 6 hours after initiation and 6 hours after every dose change; every 12 hrs x 1 day after 2 consecutive therapeutic aPTT; daily after every 12 hrs x 1 day is completed. Start: 10-31-2020 End: 11-02-2020 2,000 Units (rounded from 2, 001 Units = 30 Units/kg 66.7 kg), Intravenous, PRN, Other, heparin dosing algorithm, Starting on Arianna 10/31/20 at 0238 Half dose re-bolus based on pharmacy algorithm ibuprofen 600 mg oral tablet (17 sources) Nonsteroidal Anti-inflammatory Drug Start: 01-02-2021 End: 01-16-2021 take 1 tablet by mouth twice daily Ibuprofen 600 mg tablet Discontinued 600 mg PO TWICE A DAY January 02, 2021 12:00am January 16, 2021 3:14pm PAIN On Hold: hold and see how your stomach feels as this may be irratating to the stomach lining Start: 11-14-2020 Start: 11-12-2020 take 800 mg by mouth every eight hours as needed for pain 800 mg, Oral, EVERY 8 HOURS PRN, Pain Mild (1-3), Starting on Wed11/12/20 at 0648 Do not crush or chew. 100 ml insulin, regular, human 1 unt/ml injection (1 source) Insulin Start: 11-04-2020 End: 11-05-2020 1 Units/hr (1 mL/hr), Intravenous, at 1 mL/hr, CONTINUOUS, Starting on Wed11/04/20 at 1230 Target glucose 90-120mg/dl; if glucose <40 or >500 draw confirmation and send to lab; While on insulin drip follow hypoglycemic orders as outlined below. o Blood Glucose Initial Administration Rate/Additional IV Insulin Bolus protocol > 90-120mg/dl - 1 unit/hr 121-150mg/dl - 2 units/hr 150-180mg/dl - 2.5 units/hr 181- 240mg/dl - 3.5 units/hr + 4 unit bolus 241-300mg/dl - 5 units/hr + 6 unit bolus 301-360mg/dl - 6.5 units/hr + 8 unit bolus > 360mg/dl - 8 units/hr + 10 unit bolus o Glucose by finger stick 30 minutes after infusion has started, then per Floor Blood Glucose guidelines below o When BGT is between 90-120mg/dl with < 15mg/dl change and insulin rate remains unchanged x 3 hours, then may test every 2 hours. o Adjust insulin infusion rate in response to blood glucose levels as follows: o < 60mg/dl: BGT check in 30 minutes: 1. Stop infusion. 2. Give 25ml dextrose 50% IVP, recheck BG in 30 mins When BG is > 80 and < 120mg/dl, restart drip at 50% of the previous rate, recheck in 30 minutes. If BG > 120, restart drip at 75% of the previous rate, recheck in 30 minutes o 60-69mg/dl: BGT check in 30 minutes: 1. Stop infusion. If previous BG > 100mg/dl give 25ml dextrose 50% IVP, recheck BG in 30 minutes. When BG > 80 and < 120mg/dl, restart drip at 50% of previous rate, recheck BG in 30 minutes. If BG > 120mg/dl or more restart drip at 75% of the previous rate, recheck BG in 30 minutes. o 70-89mg/dl: BGT check every 1 hour. Has BG dropped > 10mg/dl from the last BG? Yes: Decrease rate by 50% Has BG dropped from the last BG < 10mg/dl or = to 10mg/dl? Yes: decrease the rate by 0.5units/hr. If BG greater than or equal to the last test, maintain same rate. o 90-120mg/dl: BGT check in 1 hour. TITRATE DRIP RATE TO MAINTAIN THIS RANGE Has BG increased > 10mg/dl from the last BG? Yes: increase rate by 0.5units/hr. Has BG dropped from the last BG by more than 10mg/dl? Yes: decrease the rate by 0.5 units/hr: No: Same rate. o 121-150mg/dl: BGT check in 1 hour Has BG dropped 20-50mg/dl from last BG? Yes: Same rate. Has BG increased from last BG by > 20mg/dl? Yes: increase rate by 1.5 units/hr. Has BG dropped by more than 50mg/dl? Yes: decrease rate by 50%. Is BG within 20mg/dl of the last test? Yes: increase rate by 1 unit/hr. o 151-180mg/dl: BGT check every 1 hour Has BG dropped > 30mg/dl? Yes: same rate Has BG dropped from last BG by < 30 mg/dl OR is BG higher than the last test? Yes: increase rate by 1.5 units/hr. o 181-240mg/dl: BGT check in 1 hour Is BG 50-100mg/dl lower from the last BG? Yes: continue at the same rate. Is BG lower than the last BG by >100mg/dl? Yes: decrease rate by 25%. Is BG lower than the last BG by < 50mg/dl OR higher than the last test? Yes: bolus with 4 units insulin IV and increase rate by 2 units/hr. Note: If BG 181-240mg/dl and has not dropped after 3 consecutive increases in insulin, then bolus with 4 units and double the insulin rate. o > 240mg/dl: BGT check in 30 minutes Has BG dropped > 100mg/dl from last BG? Yes: same rate Is BG lower than the last test by < 100mg/dl OR higher than the last test? Yes: IV Bolus with regular insulin as per IV infusion Bolus dosage scale and double insulin drip rate. o > 300mg/dl: Continue to follow the appropriate interventions based on BGT and call the Senior Health Consultant. o Maximum insulin infusion drip rate may not exceed 30 units/hr; Insulin drip may NOT be discontinued unless approved by Senior Health Consultant. Discontinue all subcutaneous Insulin orders (if patient is on subcutaneous insulin). Post-op iv contrast (will be provided with radiology test) (9 sources) Start: 07-13-2022 End: 12-15-2022 iv contrast (will be provide d with radiology test) Indications: Acute colitis , Pancreatic lesion CT ABD/PEL -Inject, intravenously, once for 1 dose.No IV access, insert saline lock prior to the beginning of sedation, infusion, injection of imaging exam. Discontinue saline lock post exam. If Pt. has a central line or IVAD, may access for administration according to line specific nursing protocol. Once exam is complete flush line and de-access according to line specific nursing protocol in the CT contrast administration guidelines link. 1 Each 0 07/13/2022 12/15/2022 Discontinued Start: 07-13-2022 iv contrast (w ill be provided with radiology test) Indications: Acute colitis , Pancreatic lesion CT ABD/PEL -Inject, intravenously, once for 1 dose.No IV access, insert saline lock prior to the beginning of sedation, infusion, injection of imaging exam. Discontinue saline lock post exam. If Pt. has a central line or IVAD, may access for administration according to line specific nursing protocol. Once exam is complete flush line and de-access according to line specific nursing protocol in the CT contrast administration guidelines link. 1 Each 0 07/13/2022 Active Comment on above: CT ABD/PEL -Inject, intravenously, once for 1 dose.No IV access, insert saline lock prior to the beginning of sedation, infusion, injection of imaging exam. Discontinue saline lock post exam. If Pt. has a central line or IVAD, may access for administration according to line specific nursing protocol. Once exam is complete flush line and de-access according to line specific nursing protocol in the CT contrast administration guidelines link. 1 ml ketorolac tromethamine 15 mg/ml cartridge (3 sources) Nonsteroidal Anti-inflammatory Drug, Cyclooxygenase Inhibitor Start: 11-12-2020 End: 11-12-2020 15 mg, Intravenous, EVERY 6 HOURS, First dose on Wed11/12/20 at 0630, For 1 day Start: 11-10-2020 End: 11-11-2020 15 mg, Intravenous, EVERY 6 HOURS, First dose on Wed11/10/20 at 1700, For 4 doses Do not administer for more than 5 days. Start: 11-05-2020 End: 11-06-2020 15 mg, Intravenous, EVERY 6 HOURS, First dose on Wed11/05/20 at 0645, For 1 day lactulose 667 mg/ml oral solution (6 sources) Osmotic Laxative Start: 03-08-2024 End: 09-26-2024 take 10 g by mouth at bedtime Lactulose 10 gram/15 mL (15 mL) solution Discontinued 10 g PO AT BEDTIME 450 30 March 08, 2024 12:00am September 26, 2024 1:19pm lisinopril 10 mg oral tablet (20 sources) Angiotensin Converting Enzyme Inhibitor Start: 01-17-2021 End: 04-16-2021 take 1 tablet by mouth once daily Lisinopril 10 mg tablet Discontinued 10 mg PO DAILY 90 January 17, 2021 1:25pm April 16, 2021 4:54pm loperamide hydrochloride 2 mg oral capsule (1 source) Opioid Agonist Start: 11-13-2020 End: 11-13-2020 take 2 mg by mouth once 2 mg, Oral, ONCE, On Wed11/13/20 at 0645, For 1 dose After each loose stool. losartan potassium 100 mg oral tablet (20 sources) Angiotensin 2 Receptor Twyla Start: 05-09-2021 End: 12-16-2021 take 1 tablet by mouth once daily Losartan 100 mg tablet Discontinued 100 mg PO DAILY May 09, 2021 12:34pm June 24, 2021 1:59pm Start: 04-16-2021 End: 05-09-2021 take 1 tablet by mouth once daily Losartan 50 mg tablet Discontinued 50 mg PO DAILY 30 April 16, 2021 1:00am May 09, 2021 12:35pm Comment on above: Take 100 mg by mouth once daily. melatonin 10 mg extended release oral tablet (20 sources) Start: 11-25-2021 End: 06-25-2022 take 1 capsule by mouth at bedtime melatonin 10 mg capsule Discontinued 10 mg SL/PO AT BEDTIME December 23, 2021 12:00am June 25, 2022 11:50am Start: 11-20-2021 End: 06-23-2022 take 1 tablet by mouth once daily at bedtime melatonin 10 mg tab Take 1 tablet by mouth daily at bedtime. 11/20/2021 06/23/2022 Discontinued Start: 10-31-2020 End: 11-02-2022 take 1 tablet by mouth once daily melatonin 3 MG tablet Take 1 tablet by mouth Nightly. 0 11/14/2020 11/02/2022 Discontinued (Therapy completed) melatonin 3 mg c apsules Take by mouth. 0 Active Comment on above: Take by mouth. Take 1 tablet by adrianne th daily at bedtime. memantine hydrochloride 10 mg oral tablet (20 sources) H-inwwai-Y-aspartate Receptor Antagonist Start: 12-24-2022 take 10 mg by mouth once Memantine Active 10 MG PO ONCE December 24, 2022 12:00am Start: 12-02-2022 End: 03-06-2025 take 1 tablet by mouth twice daily memantine (Namenda) 10 MG tablet Indications: Mixed Alzheimer's and vascular dementia (CMS/HCC) Take 1 tablet (10 mg) by mouth 2 times daily. 180 tablet 1 08/29/2024 03/06/2025 Discontinued (Reorder) Start: 11-16-2022 End: 02-24-2023 memantine (Namenda) 5 MG tab let Indications: Mixed Alzheimer's and vascular dementia (HCC) Take 1 every morning x 7d; then take 1 every morning and every evening x 7d; then 2 every morning w 1every evening x 7d; then start next prescription of 10mg 2x/day Do not start before November 16, 2022. 42 tablet 0 11/16/2022 02/24/2023 Discontinued (Dose adjustment) Start: 11-16-2022 memantine (Nam enda) 5 MG tablet Indications: Mixed Alzheimer's and vascular dementia (HCC) Take 1 every morning x 7d; then take 1 every morning and every evening x 7d; then 2 every morning w 1every evening x 7d; then start next prescription of 10mg 2x/day Do not start before November 16, 2022. 42 tablet 0 11/16/2022 Active methylPREDNISolone (2 sources) Corticosteroid Start: 05-14-2022 End: 05-20-2022 methylPREDNISolone (MEDROL, DAVID,) 4 mg Dose-Pack Indications: Acute cough , SOBOE (shortness of breath on exertion) Follow dosing instructions, take with food. 21 tablet 05/14/2022 05/20/2022 Start: 05-14-2022 End: 05-20-2022 methylPREDNISolone (MEDROL, DAVID,) 4 mg Dose-Pack Indications: Acute cough , SOBOE (shortness of breath on exertion) Follow dosing instructions, take with food. 21 tablet 0 05/14/2022 05/20/2022 Active Comment on above: Follow dosing instru ctions, take with food. mupirocin 0.02 mg/mg topical ointment (3 sources) RNA Synthetase Inhibitor Antibacterial Start: 11-04-2020 End: 11-08-2020 Nasal, 2 TIMES DAILY, First dose on Wed11/04/20 at 1230, For 4 days, Post-op Start: 11-03-2020 End: 11-04-2020 take 1 dose nasal route once Topical, ONCE, On 10/22 at 0600, For 1 dose Apply liberal amount per nostril the morning of surgery (0600). 100 ml sodium nitroprusside 0.5 mg/ml injection (1 source) Start: 11-04-2020 End: 11-05-2020 0.1 mcg/kg/min 64.6 kg (0.7752 mL/hr, rounded to 0.8 mL/hr), Intravenous, at 0.8 mL/hr, CONTINUOUS PRN, for Initiate if SBP greater 130 mmHg @ 1.9 mL/hr, Starting on Wed11/04/20 at 1220 initial rate: 0.1 mcg/kg/min Max rate: 2 mcg/kg/min Titrate by 0.25 mcg/kg/min no faster than 15 minutes to maintain goal SBP less than 130 mmHg but greater than 90 mmHg Infusion Titrations: If SBP falls below 90 mmHg, wean drip by 0.25 mcg/kg/min no faster than 15 minutes to achieve hemodynamic goals (SBP greater than 90 but less than 130). May titrate outside of defined titration parameters (increments and frequency) under direction of provider. If hemodynamic goal unattained at instructed max dose, notify provider. pantoprazole 20 mg delayed release oral tablet (20 sources) Proton Pump Inhibitor Start: 06-23-2023 End: 11-01-2024 take 1 tablet by mouth once daily Pantoprazole 20 mg tablet,delayed release (DR/EC) Discontinued 20 mg PO DAILY 90 0 July 05, 2024 1:22pm November 01, 2024 1:00pm Start: 12-11-2022 take 1 tablet by adrianne th once daily pantoprazole DR (PROTONIX) 20 mg tablet Indications: Gastroesophageal reflux disease without esophagitis Take 1 tablet by mouth once daily. 90 tablet 1 12/11/2022 Active Start: 11-06-2020 End: 07-01-2023 take 1 tablet by mouth once daily before breakfast pantoprazole (ProtoNix) 40 MG EC tablet Take 40 mg by mouth every morning (before breakfast). 11/15/2020 Active Comment on above: Take 1 tablet by adrianne once daily. promethazine hydrochloride 25 mg oral tablet (17 sources) Phenothiazine Start: 12-30-19 End: 01-17-20 take 1 tablet by mouth three times daily as needed for nausea and vomiting Promethazine 25 mg tablet Discontinued 25 mg PO THREE TIMES A DAY as needed for nausea and vomiting 14 0 December 29, 2020 12:00am January 16, 2021 3:14pm Start: 11-15-2020 inject 6.25 mg by in tramuscular injection every six hours as needed for nausea 6.25 mg, Intravenous, EVERY 6 HOURS PRN, Nausea, Starting on Wed11/15/20 at 1004 Recommended route is IM. First line For IV administration, dilute to 10ml with normal saline. Must be administered over at least 10 minutes. Start: 10-31-2020 End: 10-31-2020 take 25 mg by mouth once 25 mg, Oral, ONCE, On Arianna 03/13 at 0300, For 1 dose triamcinolone acetonide 0.25 mg/ml topical lotion (20 sources) Corticosteroid Start: 06-23-2023 End: 09-26-2024 Triamcinolone Acetonide 0.025 % lotion Discontinued 1 NMA TOPICAL DAILY 60 0 June 23, 2023 1:00am September 26, 2024 9:26pm Start: 06-12-2015 End: 06-23-2022 take 2 spray(s) by inhalation once daily as needed for congestion triamcinolone acetonide (NASACORT) 55 mcg nasal inhaler Use 2 Sprays in the nose once daily as needed. For nasal congestion 06/23/2022 Active Comment on above: Use 2 Sprays in the nose once daily. Use 2 Sprays in the nose once daily as needed. For nasal congestion (4 sources) Start: 11-11-2020 End: 11-11-2020 3,000 mg, Intravenous, ONCE, 1 dose, On Wed11/11/20 at 0030 Give 1 g over 60 min; 2 g over 120 min; 3 g over 180 min; 4 g over 240 min Start: 11-07-2020 End: 11-07-2020 150 mg, Intravenous, at 600 mL/hr, Administer over 10 Minutes, ONCE, On Wed11/07/20 at 2030, For 1 dose Use in-line filter. Start: 11-07-2020 End: 11-07-2020 30 mmol, Intravenous, at 62. 5 mL/hr, Administer over 240 Minutes, ONCE, On Wed11/07/20 at 0200, For 1 dose Start: 11-04-2020 2,000 mg, Intr avenous, at 50 mL/hr, Administer over 120 Minutes, PRN, iCa less than 4.3, Starting on Wed11/04/20 at 1211 Via central line. Infuse over 2 hours, Repeat serum ionized calcium 2 hours [address] infusion completed. Place order for recheck under surgeon Post-op Problems Active Problems Problem Classification Problem Date Documented Da te Episodic/Chronic Abdominal pain (13 sources) Lower abdominal pain; Translations: [Lower abdominal pain, unspecified] Episodic Acute cerebrovascular disease (13 sources) Stenosis of intracranial vessel; Translations: [Occlusion and stenosis of unspecified cerebral artery] Chronic Acute myocardial infarction (20 sources) Myocardial infarction; Translations: [Non-ST elevation (NSTEMI) myocardial infarction] Onset: 1 Chronic Anxiety disorders (20 sources) Anxiety; Translations: [Anxiety disorder, unspecified] Onset: 6 Chronic Anxiety disorders (2 sources) Demoralization and apathy; Translations: [Demoralization and apathy] Onset: 2 Episodic Cardiac dysrhythmias (20 sources) Supraventricular tachycardia; Translations: [Supraventricular tachycardia] Onset: 1 Chronic Coronary atherosclerosis and other heart disease (20 sources) Coronary arteriosclerosis; Translations: [Atherosclerotic heart disease of [place] coronary artery without angina pectoris] Onset: 8 Resolved: 2 04-28-2010 Chronic Comment on above: 6/9/21, 01/02/21 Deficiency and other anemia (15 sources) Iron deficiency anemia; Translations: [Iron deficiency anemia, unspecified] 06-10-2022 Episodic Delirium, dementia, and amnestic and other cognitive disorders (20 sources) Hallucinations co-occurrent and due to late onset dementia; Translations: [Hallucinations due to late onset dementia] Onset: 2 03-16-2022 Chronic Diabetes mellitus without complication (13 sources) Metabolic stress hyperglycemia; Translations: [Hyperglycemia, unspecified] Resolved: 1 Episodic Diseases of white blood cells (19 sources) Leukocytosis; Translations: [Elevated white blood cell count, unspecified] Chronic Disorders of lipid metabolism (20 sources) Pure hypercholesterolemia; Translations: [Pure hypercholesterolemia, unspecified] Onset: 8 01-26-2018 Chronic Esophageal disorders (2 sources) Gastroesophageal reflux disease without esophagitis; Translations: [Gastro-esophageal reflux disease without esophagitis] Chronic Essential hypertension (20 sources) Essential hypertension; Translations: [Essential (primary) hypertension] Onset: 2 04-02-2017 Chronic Fluid and electrolyte disorders (20 sources) Hypokalemia; Translations: [Hypokalemia] Episodic Genitourinary symptoms and ill-defined conditions (2 sources) Increased frequency of urination; Translations: [Frequency of micturition] Episodic Immunizations and screening for infectious disease (1 source) Vaccination needed; Translations: [Encounter for immunization] Episodic Inflammation; infection of eye (except that caused by tuberculosis or sexually transmitteddisease) (1 source) Acute conjunctivitis of bilateral eyes; Translations: [Unspecified acute conjunctivitis, bilateral] Episodic Mood disorders (20 sources) Depressive disorder; Translations: [Depression] 01-28-2021 Chronic Mycoses (1 source) Candidiasis of skin; Translations: [Candidiasis of skin and nail] 03-26-2024 Episodic Nausea and vomiting (20 sources) Nausea; Translations: [Nausea] Episodic Nonspecific chest pain (20 sources) Chest wall pain; Translations: [Other chest pain] 01-16-2021 Episodic Nutritional deficiencies (20 sources) Vitamin D deficiency; Translations: [Vitamin D deficiency, unspecified] Onset: 2 03-16-2022 Chronic Osteoarthritis (20 sources) Degenerative joint disease involving multiple joints; Translations: [Polyosteoarthritis, unspecified] Onset: 2 04-02-2006 Chronic Osteoporosis (20 sources) Osteoporosis; Translations: [Age-related osteoporosis without current pathological fracture] Onset: 4 12-18-2013 Chronic Other aftercare (2 sources) Patient encounter status; Translations: [Other senior care (current) drug therapy] Episodic Other connective tissue disease (15 sources) Paraparesis; Translations: [Other symptoms and signs involving the musculoskeletal system] Onset: 2 06-04-2021 Episodic Other connective tissue disease (2 sources) Foot swelling; Translations: [Other specified soft tissue disorders] Episodic Other fractures (7 sources) Fracture of pubic rami; Translations: [Other specified fracture of unspecified pubis, initial encounter for closed fracture] 06-10-2022 Episodic Other fractures (9 sources) Other specified fracture of unspecified pubis, initial encounter for closed fracture; Translations: [Closed fracture of pubis] Episodic Other gastrointestinal disorders (20 sources) Intolerance to food; Translations: [Malabsorption due to intolerance, not elsewhere classified] Onset: 5 07-18-2014 Chronic Other gastrointestinal disorders (15 sources) Abdominal bloating; Translations: [Abdominal distension (gaseous)] 01-06-2021 Episodic Other hereditary and degenerative nervous system conditions (1 source) Impaired cognition; Translations: [Mild cognitive impairment, so stated] Chronic Other liver diseases (14 sources) Lesion of liver; Translations: [Liver disease, unspecified] 06-10-2022 Chronic Other liver diseases (5 sources) Liver disease, unspecified; Translations: [Other specified disorders of liver] Chronic Other liver diseases (10 sources) Steatosis of liver; Translations: [Fatty (change of) liver, not elsewhere classified] 02-10-2024 Chronic Other liver diseases (1 source) Fatty (change of) liver, not elsewhere classified; Translations: [Fatty (change of) liver, not elsewhere classified] Onset: 5 Chronic Other liver diseases (4 sources) Elevated liver enzymes level; Translations: [Abnormal levels of other serum enzymes] Episodic Other lower respiratory disease (15 sources) Dyspnea; Translations: [Dyspnea, unspecified] 03-12-2021 Episodic Other lower respiratory disease (16 sources) Cough; Translations: [Cough] Episodic Other lower respiratory disease (16 sources) Chronic cough; Translations: [Chronic cough] Episodic Other lower respiratory disease (15 sources) Paroxysmal nocturnal dyspnea; Translations: [Dyspnea, unspecified] 06-10-2022 Episodic Other lower respiratory disease (2 sources) Dyspnea on exertion; Translations: [Shortness of breath] Episodic Other lower respiratory disease (1 source) Cough; Translations: [Acute cough] 05-14-2022 Episodic Other nervous system disorders (20 sources) Peripheral nerve disease ; Translations: [Polyneuropathy, unspecified] Onset: 2 01-26-2018 Chronic Other nervous system disorders (1 source) Unresponsive ; Translations: [Other symptoms and signs involving cognitive functions and awareness] Episodic Other non-traumatic joint disorders (2 sources) Swollen ankle region; Translations: [Effusion, left ankle] Episodic Other nutritional; endocrine; and metabolic disorders (20 sources) Intolerance to lactose; Translations: [Lactose intolerance, unspecified] Onset: 2 12-04-2011 Chronic Other upper respiratory disease (3 sources) Anterior epistaxis; Translations: [Epistaxis] 12-20-2024 Episodic Other upper respiratory infections (2 sources) Viral upper respiratory tract infection; Translations: [Acute upper respiratory infection, unspecified] Episodic Pancreatic disorders (not diabetes) (20 sources) Disorder of pancreas; Translations: [Disease of pancreas, unspecified] Episodic Peritonitis and intestinal abscess (1 source) Infectious disease of abdomen; Translations: [Peritonitis, unspecified] Episodic Phlebitis; thrombophlebitis and thromboembolism (15 sources) Thrombophlebitis of upper extremities; Translations: [Phlebitis and thrombophlebitis of other sites] 03-21-2019 Episodic Residual codes; unclassified (1 source) Hallucinations; Translations: [Hallucinations, unspecified] Episodic Residual codes; unclassified (15 sources) Edema; Translations: [Edema, unspecified] 06-10-2022 Episodic Residual codes; unclassified (1 source) Edema, unspecified; Translations: [Edema] Episodic Residual codes; unclassified (2 sources) Other amnesia; Translations: [Other amnesia] Onset: 2 Episodic Residual codes; unclassified (2 sources) Altered mental status; Translations: [Altered mental status, unspecified] 11-21-2023 Episodic Spondylosis; intervertebral disc disorders; other back problems (20 sources) Backache; Translations: [Dorsalgia, unspecified] 03-15-2021 Episodic Thyroid disorders (20 sources) Hypothyroidism; Translations: [Hypothyroidism, unspecified] Onset: 03-27-2021 Chronic Urinary tract infections (2 sources) Urinary tract infectious disease; Translations: [Urinary tract infection, site not specified] 11-21-2023 Episodic Past or Other Problems Problem Classification Problem Date Documented Date Episodic/Chronic Blindness and vision defects (20 sources) Left homonymous hemianopsia; Translations: [Homonymous bilateral field defects, left side] Onset: 05-29-2021 05-29-2021 Episodic Cardiac dysrhythmias (20 sources) Tachycardia; Translations: [Tachycardia, unspecified] Onset: 05-29-2021 05-29-2021 Episodic Complications of surgical procedures or medical care (16 sources) Atrial fibrillation; Translations: [Other postprocedural complications and disorders of the circulatory system, not elsewhere classified] Onset: 11-06-2020 Episodic Comment on above: Miquel, Afib, sinus p ause > 5 sec post op 11/06/20 Coronary atherosclerosis and other heart disease (11 sources) Presence of aortocoronary bypass graft; Translations: [Aortocoronary bypass status] Onset: 03-22-2006 Episodic Malaise and fatigue (20 sources) Asthenia; Translations: [Weakness] Onset: 06-04-2021 Resolved: 10-16-2021 06-04-2021 Episodic Neoplasms of unspecified nature or uncertain behavior (15 sources) Neoplasm of uncertain behavior of pancreas; Translations: [Neoplasm of uncertain behavior of other specified digestive organs] Onset: 11-01-2024 09-10-2022 Episodic Noninfectious gastroenteritis (20 sources) Chronic diarrhea; Translations: [Noninfective gastroenteritis and colitis, unspecified] Onset: 07-18-2014 07-18-2014 Episodic Nutritional deficiencies (20 sources) Cobalamin deficiency; Translations: [Deficiency of other specified B group vitamins] Onset: 11-02-2022 11-02-2022 Episodic Other bone disease and musculoskeletal deformities (10 sources) Disorder of skeletal system; Translations: [Disorder of bone, unspecified] Resolved: 06-12-2015 06-12-2015 Episodic Other circulatory disease (20 sources) History of cerebrovascular accident; Translations: [Personal history of transient ischemic attack (TIA), and cerebral infarction without residual deficits] Onset: 05-29-2021 05-29-2021 Episodic Other connective tissue disease (20 sources) Trochanteric bursitis; Translations: [Trochanteric bursitis, right hip] Onset: 12-04-2011 12-04-2011 Episodic Other connective tissue disease (10 sources) Other symptoms and signs involving the musculoskeletal system; Translations: [Other musculoskeletal symptoms referable to limbs] Onset: 06-04-2021 Resolved: 10-16-2021 10-16-2021 Episodic Other nervous system disorders (3 sources) Disorder of brain; Translations: [Encephalopathy, unspecified] Resolved: 11-14-2020 Chronic Other nervous system disorders (20 sources) Abnormal gait; Translations: [Unspecified abnormalities of gait and mobility] Onset: 06-04-2021 Resolved: 10-16-2021 06-04-2021 Episodic Other non-traumatic joint disorders (20 sources) Arthralgia of the pelvic region and thigh; Translations: [Pain in unspecified hip] Onset: 12-16-2011 12-16-2011 Episodic Other nutritional; endocrine; and metabolic disorders (12 sources) Weight gain; Translations: [Abnormal weight gain] Onset: 05-10-2023 05-10-2023 Episodic Other nutritional; endocrine; and metabolic disorders (4 sources) Weight increased; Translations: [Abnormal weight gain] Onset: 05-10-2023 05-10-2023 Episodic Other upper respiratory disease (1 source) Epistaxis; Translations: [Epistaxis] Onset: 12-28-2024 Episodic Residual codes; unclassified (3 sources) Illness, unspecified; Translations: [Other ill-defined conditions] Onset: 10-31-2020 Resolved: 11-14-2020 Episodic Residual codes; unclassified (20 sources) Amnesia; Translations: [Other amnesia] Onset: 03-16-2022 03-16-2022 Episodic Residual codes; unclassified (16 sources) Medication non-compliance due to cognitive impairment; Translations: [Unspecified symptoms and signs involving cognitive functions and awareness] Onset: 05-10-2023 05-10-2023 Episodic Results Test Name Value Interpretation Reference Range Facility Cardiology Visit Reporton Cardiology Visit Report [facility] [address] [place] [address] OFFICE VISIT Date of Service: 04/03/25 MR#: [id number] Acct: [id number] Name: LAVELLE RUEDA Rep #: [id number] : 1945 Provider: ALOK sidhu Age/Sex: 79/F Location: [facility] Status: Signed HPI HPI History of Present Illness Details: This is a 79-year-old lady who presents today for cardiovascular follow-up visit. She has a history of coronary artery disease status post angioplasty and stenting of the left anterior descending artery in 2005. She continued to have persistent chest discomfort and was taken to the cardiac catheterization lab. She was noted to have triple-vessel disease with a proximal left main of more than 60%, proximal right coronary artery of 60 to 70% a patent previously placed LAD stent and a 60% stenosis of the first diagonal branch. She was transferred to [facility] and underwent a PERRY to the LAD saphenous vein graft to ramus intermedius saphenous vein graft obtuse marginal branch into the posterior descending artery. Postoperatively she developed sinus bradycardia with sinus pauses her beta-twyla was discontinued amiodarone was added per electrophysiology. It appears that she had a cerebrovascular accident post surgery and is being seen by the neurologist. She has also had a recurrent persistent cough for which he presented to the emergency room in March. She had a CT scan of her chest which demonstrated no significant abnormality. Covid test was negative. Due to chronic cough, her Lasix was adjusted. She wore a 14-day Zio patch in April 2021 that showed an average heart of 72 bpm, 1 run of supraventricular tachycardia for 7 beats, and no atrial fibrillation. From a cardiac standpoint, the patient is doing well. She denies any palpitations, chest pain, pressure or heaviness. She denies SOB, Orthopnea, and PND. She does not have bleeding issues; no blood in urine, stool, or nosebleeds. She denies any decrease in energy level, myalgias, or claudication. She does not have edema, or sudden weight gain. She denies lightheadedness, dizziness, syncopal or near syncopal episodes, and headaches. Intake Vital Signs 02/24/24 14:04 12/19/24 21:10 04/03/25 07:36 Height 5 ft 6 in 5 ft 7 in 5 ft 7 in Weight: 173 lb BMI 27.1 BP 139/90 H Blood Pressure Location Lt brachial Position Sitting Respiration 18 Pulse 87 Pulse Source Monitor Pulse Oximetry (%) 95 Intake Visit Reasons: 1 Y FU/MOVED FROM [facility] Keg Washer Required: No Is patient in pain?: No Allergies lisinopril Adverse Reaction (Intermediate, Verified 04/03/25 15:49) cough Medications ???Medication ???Instructions ???Recorded ???Confirmed ???Type acetaminophen 500 mg capsule 1,000 mg PO Q8H PRN Pain, Moderate 05/14/21 04/03/25 History aspirin 81 mg tablet,delayed 81 mg PO QODAY 07/09/21 04/03/25 H istory release (Adult Aspirin Regimen) cyanocobalamin (vitamin B-12) 1,000 mcg PO DAILY 05/22/22 History 1,000 mcg capsule ondansetron HCl 4 mg tablet 4 mg PO Q6H PRN Nausea 05/22/22 History calcium carbonate-vitamin D3 1 tab PO DAILY 03/20/24 04/03/25 H istory [Calcium 600 with Vitamin D3] benzonatate 100 mg capsule 100 mg PO TID PRN Cough #30 caps 0 07/05/24 04/03/25 Rx escitalopram oxalate 10 mg tablet 10 mg PO DAILY anxiety #90 tabs 0 07/05/24 04/03/25 Rx memantine 10 mg tablet 10 mg PO BID #180 tabs 07/05/24 Rx nortriptyline 25 mg capsule 25 mg PO DAILY #90 caps 07/05/24 1 06/03/24 Rx atorvastatin 80 mg tablet 40 mg PO QHS 09/04/24 04/03/25 His tory resmetirom 80 mg tablet (Rezdiffra) 80 mg PO DAILY Fatty liver dise ase 09/04/24 04/03/25 History alendronate 70 mg tablet 70 mg PO QWEEK #12 tabs 10/01/24 1 06/03/24 Rx clopidogrel 75 mg tablet 75 mg PO DAILY #90 tabs 10/11/24 1 06/03/24 Rx levothyroxine 25 mcg tablet 25 mcg PO DAILY THYROID #90 tabs 0 11/01/24 04/03/25 Rx pantoprazole 20 mg tablet,delayed 20 mg PO DAILY #90 tabs 11/01/24 04/03/25 Rx release furosemide 40 mg tablet 40 mg PO DAILY #90 tabs 11/27/24 1 06/03/24 Rx potassium chloride 10 mEq 20 meq (2 x 10 mEq) PO DAILY #180 01/23/25 04/03/25 Rx tablet,extended release TABLETS metoprolol succinate 50 mg 50 mg PO BID #180 TABLETS 04/03/25 04/03/25 Rx tablet,extended release 24 hr Ejection fraction %: 55 Have you fallen in the past year?: No [facility] Medical History Abnormal finding on thyroid function test Depression Hyperthyroidism GERD (gastroesophageal reflux disease) Myocardial infarct Hypertension Stroke/cerebrovascular accident Dementia TIA (transient ischemic attack) Fracture of pubic ramus Colitis Edema Chronic cough (more content not included)... Normal [facility] Dexa Bone Density Studyon Dexa Bone Density Study [facility] Imaging Services [address] [place] [address] [id number] Dexa Bone Density Study MR#: [id number] Acct: [id number] Name: LAVELLE RUEDA Rep #: [id number] : 1945 F 79 From: Deonte hernández MD PCP: Dr. Bill Corado MD Status: REG CLI Study: Dexa Bone Density Study Date of Exam: 03/29/25 Exam# [id number] Ordering Dr: Bill Corado MD PROCEDURE: DEXA BONE DENSITY STUDY 03/29/2025 REASON FOR EXAM: F, age 79 y/o . Postmenopausal. TECHNIQUE: Procedure Code: BDDBD Modality: DX Procedure: DEXA BONE DENSITY STUDY COMPARISON: None FINDINGS: BMD and T-SCORES Lumbar spine: 0.780 g/cm2, T-score -2.5 Levels: L1 through L4 Left femoral neck: 0.576 g/cm2, T-score -2.5 Femoral neck comparison data not recommended for monitoring change. Left total hip: 0.692 g/cm2, T-score -2.1 Right femoral neck: 0.666 g/cm2, T-score -1.7 Femoral neck comparison data not recommended for monitoring change. Right total hip: 0.728 g/cm2, T-score -1.8 The World Health Organization has defined the following categories based on bone density: Normal bone density: T-score equal to or greater than -1.0 Osteopenia: T-score between -1.0 and -2.5 Osteoporosis: T-score equal to or less than -2.5 FRAX (or Comparable) Fracture Risk Assessment: 10 Year Probability of Fracture: Major Osteoporotic Fracture: 18% Hip Fracture: 5.9% (Note: FRAX is not to be reported in setting of normal range bone density, osteoporosis on DEXA, known history of osteoporosis, prior osteoporotic hip or vertebral fracture, or for any patient undergoing pharmacological treatment for bone loss.) The National Osteoporosis Foundation (NOF) recommends pharmacological treatment for patients with a FRAX 10-year risk of 3% or higher for a hip fracture, or 20% or higher for a major osteoporotic fracture, to prevent osteoporosis and reduce fracture risk. The patient does meet the pharmacological treatment recommendations for prevention of osteoporosis. BD/Dexa Bone Density Study IMPRESSION: OSTEOPOROSIS. Recommend follow-up as clinically warranted. Reading Location: [facility] CC: Dr. Bill Corado MD Manager Star: Signed Normal [facility] Gastroenterology Visit Repor ton 03-16-2025 Gastroenterology Visit Report [facility] [address] [place] [address] OFFICE VISIT Date of Service: 03/16/25 MR#: [id number] Acct: [id number] Name: LAVELLE RUEDA Rep #: [id number] : 1945 Provider: JUDY Neal Age/Sex: 79/F Location: [facility] Status: Signed Intake Vital Signs 09/26/24 11:26 12/19/24 21:10 Height 5 ft 6 in 5 ft 7 in Intake Visit Reasons: 3 M FU Chief Complaint: fatty liver Allergies lisinopril Adverse Reaction (Intermediate, Verified 03/16/25 13:03) cough Medications ???Medication ???Instructions ???Recorded ???Confirmed ???Type acetaminophen 500 mg capsule 1,000 mg PO Q8H PRN Pain, Moderate 05/14/21 03/16/25 History aspirin 81 mg tablet,delayed 81 mg PO QODAY 07/09/21 03/16/25 H istory release (Adult Aspirin Regimen) cyanocobalamin (vitamin B-12) 1,000 mcg PO DAILY 05/22/22 History 1,000 mcg capsule ondansetron HCl 4 mg tablet 4 mg PO Q6H PRN Nausea 05/22/22 History calcium carbonate-vitamin D3 1 tab PO DAILY 03/20/24 03/16/25 H istory [Calcium 600 with Vitamin D3] benzonatate 100 mg capsule 100 mg PO TID PRN Cough #30 caps 0 07/05/24 03/16/25 Rx escitalopram oxalate 10 mg tablet 10 mg PO DAILY anxiety #90 tabs 0 07/05/24 03/16/25 Rx memantine 10 mg tablet 10 mg PO BID #180 tabs 07/05/24 Rx nortriptyline 25 mg capsule 25 mg PO DAILY #90 caps 07/05/24 1 Rx atorvastatin 80 mg tablet 40 mg PO QHS 09/04/24 03/16/25 His tory resmetirom 80 mg tablet (Rezdiffra) 80 mg PO DAILY Fatty liver dise ase 09/04/24 03/16/25 History vitamin E 800 unit capsule 800 unit PO QDAY 09/04/24 03/16/25 History metoprolol succinate 50 mg 50 mg PO DAILY #90 TABLETS 09/15/ 5 03/16/25 Rx tablet,extended release 24 hr alendronate 70 mg tablet 70 mg PO QWEEK #12 tabs 10/01/24 1 Rx clopidogrel 75 mg tablet 75 mg PO DAILY #90 tabs 10/11/24 1 Rx levothyroxine 25 mcg tablet 25 mcg PO DAILY THYROID #90 tabs 0 11/01/24 03/16/25 Rx pantoprazole 20 mg tablet,delayed 20 mg PO DAILY #90 tabs 11/01/24 03/16/25 Rx release furosemide 40 mg tablet 40 mg PO DAILY #90 tabs 11/27/24 1 Rx potassium chloride 10 mEq 20 meq (2 x 10 mEq) PO DAILY #180 01/23/25 03/16/25 Rx tablet,extended release TABLETS Have you fallen in the past year?: No PFSH Medical History Abnormal finding on thyroid function test Depression Hyperthyroidism GERD (gastroesophageal reflux disease) Myocardial infarct Hypertension Stroke/cerebrovascular accident Dementia TIA (transient ischemic attack) Fracture of pubic ramus Colitis Edema Chronic cough PND (paroxysmal nocturnal dyspnea) Postoperative atrial fibrillation (11/06/20) Atherosclerotic heart disease of [place] coronary artery without angina pectoris History of non-ST elevation myocardial infarction (NSTEMI) (01/02/21) Anxiety Heme positive stool Anxiety and depression Iron deficiency anemia Pleural effusion, left Pleuritis Community acquired pneumonia Osteoarthritis Atherosclerosis of coronary artery of [place] heart without angina pectoris Essential (primary) hypertension HLD (hyperlipidemia) Surgical History H/O coronary artery bypass surgery (11/04/20) History of repair of retinal tear by laser photocoagulation History of left heart catheterization (10/30/20) History of coronary artery stent placement (03/22/06) Hx of appendectomy Family History Father Rheumatoid arthritis Mother CHF (congestive heart failure) Brother Age: 81 High cholesterol Uncle Heart disease Social History household members: none housing: house 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 Liver elastography 8.26.24; liver stiffness of 17.4 kPa Liver elastography 9.19.24; liver stiffness of 17.3 last OV 1.8.25 Pt has been doing well. She is here today with her family to discuss her fatty liver diagnosis. She been doing physical therapy adn working out at home with a sports athletic trainer. She has been working on diet but is still struggling with sweets as her adhesion tester often brings her pies and treats. *Start Rezdiffra, Vitamine E, Diet and exercised OV 6.11.25 Pt doing well. She denies all Gi complaints. She has been working on diet and exercise. Continues (more content not included)... Normal [facility] CBC-Complete Blood Cnt No Di ffon 03-09-2025 Erythrocyte distribution width (RBC) [Ratio] 14.3 % Normal 11.6-14.6 [facility] Comment on above: Order Comment: Order Date: 03/06/25Order Info: [id number] - CBC Performed By: #### L 503.6075, L3100.5440, L501.6710, L800.1280, L503.5510, L3400.3800, L101.9900, L300.3900, L803.2200, L3100.6900, L500.4100, L501.9985, L503.6550, L500.4050, L3400.0700, L3300.0100, L100.0100, L3300.1200 #### [facility] [address] [place], [place], [address] Hematocrit (Bld) [Volume fraction] 40.8 % Normal 37-47 [facility] Comment on above: Order Comment: Order Date: 03/06/25Order Info: [id number] - CBC Performed By: #### L 503.6075, L3100.5440, L501.6710, L800.1280, L503.5510, L3400.3800, L101.9900, L300.3900, L803.2200, L3100.6900, L500.4100, L501.9985, L503.6550, L500.4050, L3400.0700, L3300.0100, L100.0100, L3300.1200 #### [facility] [address] [place], [place], [id number] [phone] Hemoglobin (Bld) [Mass/Vol] 13.2 g/dL Normal 12.0-15.0 [facility] Comment on above: Order Comment: Order Date: 03/06/25Order Info: [id number] - CBC Performed By: #### L 503.6075, L3100.5440, L501.6710, L800.1280, L503.5510, L3400.3800, L101.9900, L300.3900, L803.2200, L3100.6900, L500.4100, L501.9985, L503.6550, L500.4050, L3400.0700, L3300.0100, L100.0100, L3300.1200 #### [facility] [address] [place], [address] MCH (RBC) [Entitic mass] 26.9 pg Low 27.0-32.0 [facility] Comment on above: Order Comment: Order Date: 03/06/25Order Info: [id number] - CBC Performed By: #### L 503.6075, L3100.5440, L501.6710, L800.1280, L503.5510, L3400.3800, L101.9900, L300.3900, L803.2200, L3100.6900, L500.4100, L501.9985, L503.6550, L500.4050, L3400.0700, L3300.0100, L100.0100, L3300.1200 #### [facility] [address] [place], [address] MCHC (RBC) [Mass/Vol] 32.4 g/dL Normal 32-36 [facility] Comment on above: Order Comment: Order Date: 03/06/25Order Info: [id number] - CBC Performed By: #### L 503.6075, L3100.5440, L501.6710, L800.1280, L503.5510, L3400.3800, L101.9900, L300.3900, L803.2200, L3100.6900, L500.4100, L501.9985, L503.6550, L500.4050, L3400.0700, L3300.0100, L100.0100, L3300.1200 #### [facility] [address] [place], [place], [id number] MCV (RBC) [Entitic vol] 83.3 fL Normal 81-99 [facility] Comment on above: Order Comment: Order Date: 03/06/25Order Info: [id number] - CBC Performed By: #### L 503.6075, L3100.5440, L501.6710, L800.1280, L503.5510, L3400.3800, L101.9900, L300.3900, L803.2200, L3100.6900, L500.4100, L501.9985, L503.6550, L500.4050, L3400.0700, L3300.0100, L100.0100, L3300.1200 #### [facility] [address] [place], [place], [id number] Platelet mean volume (Bld) [Entitic vol] 11.8 fL Normal 6.2-12.0 [facility] Comment on above: Order Comment: Order Date: 03/06/25Order Info: [id number] - CBC Performed By: #### L 503.6075, L3100.5440, L501.6710, L800.1280, L503.5510, L3400.3800, L101.9900, L300.3900, L803.2200, L3100.6900, L500.4100, L501.9985, L503.6550, L500.4050, L3400.0700, L3300.0100, L100.0100, L3300.1200 #### [facility] [address] [place], [address] Platelets (Bld) [#/Vol] 246 10*3/uL Normal 150-450 [facility] Comment on above: Order Comment: Order Date: 03/06/25Order Info: [id number] - CBC Performed By: #### L 503.6075, L3100.5440, L501.6710, L800.1280, L503.5510, L3400.3800, L101.9900, L300.3900, L803.2200, L3100.6900, L500.4100, L501.9985, L503.6550, L500.4050, L3400.0700, L3300.0100, L100.0100, L3300.1200 #### [facility] [address] [place], [place], [id number] RBC (Bld) [#/Vol] 4.90 10*6/uL Normal 4.2-5.4 [facility] Comment on above: Order Comment: Order Date: 03/06/25Order Info: [id number] - CBC Performed By: #### L 503.6075, L3100.5440, L501.6710, L800.1280, L503.5510, L3400.3800, L101.9900, L300.3900, L803.2200, L3100.6900, L500.4100, L501.9985, L503.6550, L500.4050, L3400.0700, L3300.0100, L100.0100, L3300.1200 #### [facility] [address] [place], [place], [id number] RDW SD 43.3 fl Normal 35.1-43.9 [facility] Comment on above: Order Comment: Order Date: 03/06/25Order Info: [id number] - CBC Performed By: #### L 503.6075, L3100.5440, L501.6710, L800.1280, L503.5510, L3400.3800, L101.9900, L300.3900, L803.2200, L3100.6900, L500.4100, L501.9985, L503.6550, L500.4050, L3400.0700, L3300.0100, L100.0100, L3300.1200 #### [facility] [address] [place], [place], [id number] WBC (Bld) [#/Vol] 5.2 10*3/uL Normal 4.4-11.0 [facility] Comment on above: Order Comment: Order Date: 03/06/25Order Info: [id number] - CBC Performed By: #### L 503.6075, L3100.5440, L501.6710, L800.1280, L503.5510, L3400.3800, L101.9900, L300.3900, L803.2200, L3100.6900, L500.4100, L501.9985, L503.6550, L500.4050, L3400.0700, L3300.0100, L100.0100, L3300.1200 #### [facility] [address] [place], [address] Comprehensive Metabolic Prof [facility] 03-09-2025 Albumin [Mass/Vol] 3.7 g/dL Normal 3.4-4.8 [facility] Comment on above: Order Comment: Order Date: 03/06/25Order Info: [id number] - CMPOrder Info: [id number] - LIPIDOrder Info: [id number] - TSH Performed By: #### L 503.6075, L3100.5440, L501.6710, L800.1280, L503.5510, L3400.3800, L101.9900, L300.3900, L803.2200, L3100.6900, L500.4100, L501.9985, L503.6550, L500.4050, L3400.0700, L3300.0100, L100.0100, L3300.1200 #### [facility] [address] [place], [place], [id number] Albumin/Globulin [Mass ratio] 1.2 {ratio} Normal 0.9-2.4 [facility] Comment on above: Order Comment: Order Date: 03/06/25Order Info: [id number] - CMPOrder Info: [id number] - LIPIDOrder Info: [id number] - TSH Performed By: #### L 503.6075, L3100.5440, L501.6710, L800.1280, L503.5510, L3400.3800, L101.9900, L300.3900, L803.2200, L3100.6900, L500.4100, L501.9985, L503.6550, L500.4050, L3400.0700, L3300.0100, L100.0100, L3300.1200 #### [facility] [address] [place], [place], [id number] ALK PHOS 123 U/L High 35-104 [facility] Comment on above: Order Comment: Order Date: 03/06/25Order Info: [id number] - CMPOrder Info: [id number] - LIPIDOrder Info: [id number] - TSH Performed By: #### L 503.6075, L3100.5440, L501.6710, L800.1280, L503.5510, L3400.3800, L101.9900, L300.3900, L803.2200, L3100.6900, L500.4100, L501.9985, L503.6550, L500.4050, L3400.0700, L3300.0100, L100.0100, L3300.1200 #### [facility] [address] [place], [place], [id number] ALT [Catalytic activity/Vol] 26 U/L Normal <=34 [facility] Comment on above: Order Comment: Order Date: 03/06/25Order Info: [id number] - CMPOrder Info: [id number] - LIPIDOrder Info: 3 - TSH Performed By: #### L 503.6075, L3100.5440, L501.6710, L800.1280, L503.5510, L3400.3800, L101.9900, L300.3900, L803.2200, L3100.6900, L500.4100, L501.9985, L503.6550, L500.4050, L3400.0700, L3300.0100, L100.0100, L3300.1200 #### [facility] [address] [place], [address] AST [Catalytic activity/Vol] 34 U/L High <=31 [facility] Comment on above: Order Comment: Order Date: 03/06/25Order Info: [id number] - CMPOrder Info: [id number] - LIPIDOrder Info: [id number] - TSH Performed By: #### L 503.6075, L3100.5440, L501.6710, L800.1280, L503.5510, L3400.3800, L101.9900, L300.3900, L803.2200, L3100.6900, L500.4100, L501.9985, L503.6550, L500.4050, L3400.0700, L3300.0100, L100.0100, L3300.1200 #### [facility] [address] [place], [place], [id number] Bilirubin [Mass/Vol] 0.60 mg/dL Normal 0.00-1.30 [facility] Comment on above: Order Comment: Order Date: 03/06/25Order Info: [id number] - CMPOrder Info: [id number] - LIPIDOrder Info: [id number] - TSH Performed By: #### L 503.6075, L3100.5440, L501.6710, L800.1280, L503.5510, L3400.3800, L101.9900, L300.3900, L803.2200, L3100.6900, L500.4100, L501.9985, L503.6550, L500.4050, L3400.0700, L3300.0100, L100.0100, L3300.1200 #### [facility] [address] [place], [address] BUN/CRE 15.5 RATIO Normal 10-20 [facility] Comment on above: Order Comment: Order Date: 03/06/25Order Info: [id number] - CMPOrder Info: [id number] - LIPIDOrder Info: [id number] - TSH Performed By: #### L 503.6075, L3100.5440, L501.6710, L800.1280, L503.5510, L3400.3800, L101.9900, L300.3900, L803.2200, L3100.6900, L500.4100, L501.9985, L503.6550, L500.4050, L3400.0700, L3300.0100, L100.0100, L3300.1200 #### [facility] [address] [place], [address] Calcium [Mass/Vol] 8.9 mg/dL Normal 7.6-11.0 [facility] Comment on above: Order Comment: Order Date: 03/06/25Order Info: [id number]- - CMPOrder Info: [id number] - LIPIDOrder Info: [id number] - TSH Performed By: #### L 503.6075, L3100.5440, L501.6710, L800.1280, L503.5510, L3400.3800, L101.9900, L300.3900, L803.2200, L3100.6900, L500.4100, L501.9985, L503.6550, L500.4050, L3400.0700, L3300.0100, L100.0100, L3300.1200 #### [facility] [address] [place], [address] Chloride [Moles/Vol] 104 mmol/L Normal 98-108 [facility] Comment on above: Order Comment: Order Date: 03/06/25Order Info: [id number]- - CMPOrder Info: [id number] - LIPIDOrder Info: [id number] - TSH Performed By: #### L 503.6075, L3100.5440, L501.6710, L800.1280, L503.5510, L3400.3800, L101.9900, L300.3900, L803.2200, L3100.6900, L500.4100, L501.9985, L503.6550, L500.4050, L3400.0700, L3300.0100, L100.0100, L3300.1200 #### [facility] [address] [place], [place], [id number] CO2 [Moles/Vol] 22.2 mmol/L Normal 21.0-32.0 [facility] Comment on above: Order Comment: Order Date: 03/06/25Order Info: [id number] - CMPOrder Info: [id number] - LIPIDOrder Info: [id number] - TSH Performed By: #### L 503.6075, L3100.5440, L501.6710, L800.1280, L503.5510, L3400.3800, L101.9900, L300.3900, L803.2200, L3100.6900, L500.4100, L501.9985, L503.6550, L500.4050, L3400.0700, L3300.0100, L100.0100, L3300.1200 #### [facility] [address] [facility] [place], [place], [id number] Creatinine [Mass/Vol] 0.73 mg/dL Normal 0.70-1.20 [facility] Comment on above: Order Comment: Order Date: 03/06/25Order Info: [id number] - CMPOrder Info: [id number] - LIPIDOrder Info: [id number] - TSH Performed By: #### L 503.6075, L3100.5440, L501.6710, L800.1280, L503.5510, L3400.3800, L101.9900, L300.3900, L803.2200, L3100.6900, L500.4100, L501.9985, L503.6550, L500.4050, L3400.0700, L3300.0100, L100.0100, L3300.1200 #### [facility] [address] [facility]. [place], [place], [id number] GAP 12 Normal 5-15 [facility] Comment on above: Order Comment: Order Date: 03/06/25Order Info: [id number] - CMPOrder Info: [id number] - LIPIDOrder Info: [id number] - TSH Performed By: #### L 503.6075, L3100.5440, L501.6710, L800.1280, L503.5510, L3400.3800, L101.9900, L300.3900, L803.2200,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 L3400.3800, L101.9900, L300.3900, L803.2200, L3100.6900, L500.4100, L501.9985, L503.6550, L500.4050, L3400.0700, L3300.0100, L100.0100, L3300.1200 #### [facility] [address] [place], [address] Lymphocytes/100 WBC (Bld) 10.4 % Low 19-41 [facility] Comment on above: Performed By: #### L 503.6075, L3100.5440, L501.6710, L800.1280, L503.5510, L3400.3800, L101.9900, L300.3900, L803.2200, L3100.6900, L500.4100, L501.9985, L503.6550, L500.4050, L3400.0700, L3300.0100, L100.0100, L3300.1200 #### [facility] [address] [place], [place], [id number] (291) MCH (RBC) [Entitic mass] 27.7 pg Normal 27.0-32.0 [facility] Comment on above: Performed By: #### L 503.6075, L3100.5440, L501.6710, L800.1280, L503.5510, L3400.3800, L101.9900, L300.3900, L803.2200, L3100.6900, L500.4100, L501.9985, L503.6550, L500.4050, L3400.0700, L3300.0100, L100.0100, L3300.1200 #### [facility] [address] [place], [address] MCHC (RBC) [Mass/Vol] 32.8 g/dL Normal 32-36 [facility] Comment on above: Performed By: #### L 503.6075, L3100.5440, L501.6710, L800.1280, L503.5510, L3400.3800, L101.9900, L300.3900, L803.2200, L3100.6900, L500.4100, L501.9985, L503.6550, L500.4050, L3400.0700, L3300.0100, L100.0100, L3300.1200 #### [facility] [address] [facility] [place], [address] MCV (RBC) [Entitic vol] 84.2 fL Normal 81-99 [facility] Comment on above: Performed By: #### L 503.6075, L3100.5440, L501.6710, L800.1280, L503.5510, L3400.3800, L101.9900, L300.3900, L803.2200, L3100.6900, L500.4100, L501.9985, L503.6550, L500.4050, L3400.0700, L3300.0100, L100.0100, L3300.1200 #### [facility] [address]. [place], [place], [id number] Monocytes/100 WBC (Bld) 7.9 % Normal 0-10 [facility] Comment on above: Performed By: #### L 503.6075, L3100.5440, L501.6710, L800.1280, L503.5510, L3400.3800, L101.9900, L300.3900, L803.2200, L3100.6900, L500.4100, L501.9985, L503.6550, L500.4050, L3400.0700, L3300.0100, L100.0100, L3300.1200 #### [facility] [address] [place], [address] Neutrophils/100 WBC (Bld) 78.2 % High 47-70 [facility] Comment on above: Performed By: #### L 503.6075, L3100.5440, L501.6710, L800.1280, L503.5510, L3400.3800, L101.9900, L300.3900, L803.2200, L3100.6900, L500.4100, L501.9985, L503.6550, L500.4050, L3400.0700, L3300.0100, L100.0100, L3300.1200 #### [facility] [address] [place], [address] Nucleated RBC (Bld) [#/Vol] 0 10*3/uL Normal 0-5 [facility] Comment on above: Performed By: #### L 503.6075, L3100.5440, L501.6710, L800.1280, L503.5510, L3400.3800, L101.9900, L300.3900, L803.2200, L3100.6900, L500.4100, L501.9985, L503.6550, L500.4050, L3400.0700, L3300.0100, L100.0100, L3300.1200 #### [facility] [address] [place], [address] Platelet mean volume (Bld) [Entitic vol] 11.1 fL Normal 6.2-12.0 [facility] Comment on above: Performed By: #### L 503.6075, L3100.5440, L501.6710, L800.1280, L503.5510, L3400.3800, L101.9900, L300.3900, L803.2200, L3100.6900, L500.4100, L501.9985, L503.6550, L500.4050, L3400.0700, L3300.0100, L100.0100, L3300.1200 #### [facility] [address] [place], [place], [id number] (566) Platelets (Bld) [#/Vol] 268 10*3/uL Normal 150-450 [facility] Comment on above: Performed By: #### L 503.6075, L3100.5440, L501.6710, L800.1280, L503.5510, L3400.3800, L101.9900, L300.3900, L803.2200, L3100.6900, L500.4100, L501.9985, L503.6550, L500.4050, L3400.0700, L3300.0100, L100.0100, L3300.1200 #### [facility] [address] [place], [place], [id number] (826) RBC (Bld) [#/Vol] 5.46 10*6/uL High 4.2-5.4 [facility] Comment on above: Performed By: #### L 503.6075, L3100.5440, L501.6710, L800.1280, L503.5510, L3400.3800, L101.9900, L300.3900, L803.2200, L3100.6900, L500.4100, L501.9985, L503.6550, L500.4050, L3400.0700, L3300.0100, L100.0100, L3300.1200 #### [facility] [address] [place], [address] (421) RDW SD 44.2 fl High 35.1-43.9 [facility] Comment on above: Performed By: #### L 503.6075, L3100.5440, L501.6710, L800.1280, L503.5510, L3400.3800, L101.9900, L300.3900, L803.2200, L3100.6900, L500.4100, L501.9985, L503.6550, L500.4050, L3400.0700, L3300.0100, L100.0100, L3300.1200 #### [facility] [address] [facility]. [place], [place], [id number] WBC (Bld) [#/Vol] 8.0 10*3/uL Normal 4.4-11.0 [facility] Comment on above: Performed By: #### L 503.6075, L3100.5440, L501.6710, L800.1280, L503.5510, L3400.3800, L101.9900, L300.3900, L803.2200, L3100.6900, L500.4100, L501.9985, L503.6550, L500.4050, L3400.0700, L3300.0100, L100.0100, L3300.1200 #### [facility] [address] [place], [place], [id number] Carbon dioxide, total [Moles /volume] in Central venous bloodOrdered By: Raven Garcia on 02-15-2025 CO2 [Moles/Vol] 22.1 mmol/L 21.0-32.0 [facility] Chloride assayOrdered By: Doreen Garcia on 02-15-2025 Chloride [Moles/Vol] 105 mmol/L 98-108 [facility] Comprehensive Metabolic Prof ilon 02-15-2025 Albumin [Mass/Vol] 4.0 g/dL Normal 3.4-4.8 [facility] Comment on above: Performed By: #### L 503.6075, L3100.5440, L501.6710, L800.1280, L503.5510, L3400.3800, L101.9900, L300.3900, L803.2200, L3100.6900, L500.4100, L501.9985, L503.6550, L500.4050, L3400.0700, L3300.0100, L100.0100, L3300.1200 #### [facility] [address] [facility]. [place], [place], [id number] Albumin/Globulin [Mass ratio] 1.1 {ratio} Normal 0.9-2.4 [facility] Comment on above: Performed By: #### L 503.6075, L3100.5440, L501.6710, L800.1280, L503.5510, L3400.3800, L101.9900, L300.3900, L803.2200, L3100.6900, L500.4100, L501.9985, L503.6550, L500.4050, L3400.0700, L3300.0100, L100.0100, L3300.1200 #### [facility] [address] [facility] [place], [address] ALK PHOS 142 U/L High 35-104 [facility] Comment on above: Performed By: #### L 503.6075, L3100.5440, L501.6710, L800.1280, L503.5510, L3400.3800, L101.9900, L300.3900, L803.2200, L3100.6900, L500.4100, L501.9985, L503.6550, L500.4050, L3400.0700, L3300.0100, L100.0100, L3300.1200 #### [facility] [address] [place], [address] ALT [Catalytic activity/Vol] 25 U/L Normal <=34 [facility] Comment on above: Performed By: #### L 503.6075, L3100.5440, L501.6710, L800.1280, L503.5510, L3400.3800, L101.9900, L300.3900, L803.2200, L3100.6900, L500.4100, L501.9985, L503.6550, L500.4050, L3400.0700, L3300.0100, L100.0100, L3300.1200 #### [facility] [address] [place], [place], [id number] AST [Catalytic activity/Vol] 36 U/L High <=31 [facility] Comment on above: Performed By: #### L 503.6075, L3100.5440, L501.6710, L800.1280, L503.5510, L3400.3800, L101.9900, L300.3900, L803.2200, L3100.6900, L500.4100, L501.9985, L503.6550, L500.4050, L3400.0700, L3300.0100, L100.0100, L3300.1200 #### [facility] [address] [place], [address] Bilirubin [Mass/Vol] 0.51 mg/dL Normal 0.00-1.30 [facility] Comment on above: Performed By: #### L 503.6075, L3100.5440, L501.6710, L800.1280, L503.5510, L3400.3800, L101.9900, L300.3900, L803.2200, L3100.6900, L500.4100, L501.9985, L503.6550, L500.4050, L3400.0700, L3300.0100, L100.0100, L3300.1200 #### [facility] [address] [place], [address] BUN/CRE 14.7 RATIO Normal 10-20 [facility] Comment on above: Performed By: #### L 503.6075, L3100.5440, L501.6710, L800.1280, L503.5510, L3400.3800, L101.9900, L300.3900, L803.2200, L3100.6900, L500.4100, L501.9985, L503.6550, L500.4050, L3400.0700, L3300.0100, L100.0100, L3300.1200 #### [facility] [address] [place], [address] Calcium [Mass/Vol] 9.3 mg/dL Normal 7.6-11.0 [facility] Comment on above: Performed By: #### L 503.6075, L3100.5440, L501.6710, L800.1280, L503.5510, L3400.3800, L101.9900, L300.3900, L803.2200, L3100.6900, L500.4100, L501.9985, L503.6550, L500.4050, L3400.0700, L3300.0100, L100.0100, L3300.1200 #### [facility] [address] [facility] [place], [address] Chloride [Moles/Vol] 105 mmol/L Normal 98-108 [facility] Comment on above: Performed By: #### L 503.6075, L3100.5440, L501.6710, L800.1280, L503.5510, L3400.3800, L101.9900, L300.3900, L803.2200, L3100.6900, L500.4100, L501.9985, L503.6550, L500.4050, L3400.0700, L3300.0100, L100.0100, L3300.1200 #### [facility] [address] [facility] [place], [address] CO2 [Moles/Vol] 22.1 mmol/L Normal 21.0-32.0 [facility] Comment on above: Performed By: #### L 503.6075, L3100.5440, L501.6710, L800.1280, L503.5510, L3400.3800, L101.9900, L300.3900, L803.2200, L3100.6900, L500.4100, L501.9985, L503.6550, L500.4050, L3400.0700, L3300.0100, L100.0100, L3300.1200 #### [facility] [address] [place], [place], [id number] Creatinine [Mass/Vol] 0.82 mg/dL Normal 0.70-1.20 [facility] Comment on above: Performed By: #### L 503.6075, L3100.5440, L501.6710, L800.1280, L503.5510, L3400.3800, L101.9900, L300.3900, L803.2200, L3100.6900, L500.4100, L501.9985, L503.6550, L500.4050, L3400.0700, L3300.0100, L100.0100, L3300.1200 #### [facility] [address] [place], [address] GAP 12 Normal 5-15 [facility] Comment on above: Performed By: #### L 503.6075, L3100.5440, L501.6710, L800.1280, L503.5510, L3400.3800, L101.9900, L300.3900, L803.2200, L3100.6900, L500.4100, L501.9985, L503.6550, L500.4050, L3400.0700, L3300.0100, L100.0100, L3300.1200 #### [facility] [address] [facility] [place], [address] GFR/1.73 sq M.predicted among non-blacks MDRD (S/P/Bld) [Vol rate/Area] 73 mL/min/{1.73_m2} Normal >60 [facility] Comment on above: Result Comment: mL/m in/1.73m2 CKD-EPI Creatinine Equation (2020) Performed By: #### L 503.6075, L3100.5440, L501.6710, L800.1280, L503.5510, L3400.3800, L101.9900, L300.3900, L803.2200, L3100.6900, L500.4100, L501.9985, L503.6550, L500.4050, L3400.0700, L3300.0100, L100.0100, L3300.1200 #### [facility] [address] [place], [address] Globulin (S) [Mass/Vol] 3.6 g/dL Normal 2.2-4.2 [facility] Comment on above: Performed By: #### L 503.6075, L3100.5440, L501.6710, L800.1280, L503.5510, L3400.3800, L101.9900, L300.3900, L803.2200, L3100.6900, L500.4100, L501.9985, L503.6550, L500.4050, L3400.0700, L3300.0100, L100.0100, L3300.1200 #### [facility] [address] [place], [address] Glucose [Mass/Vol] 102 mg/dL High 70-99 [facility] Comment on above: Performed By: #### L 503.6075, L3100.5440, L501.6710, L800.1280, L503.5510, L3400.3800, L101.9900, L300.3900, L803.2200, L3100.6900, L500.4100, L501.9985, L503.6550, L500.4050, L3400.0700, L3300.0100, L100.0100, L3300.1200 #### [facility] [address] [place], [address] Potassium [Moles/Vol] 4.1 mmol/L Normal 3.3-5.1 [facility] Comment on above: Performed By: #### L 503.6075, L3100.5440, L501.6710, L800.1280, L503.5510, L3400.3800, L101.9900, L300.3900, L803.2200, L3100.6900, L500.4100, L501.9985, L503.6550, L500.4050, L3400.0700, L3300.0100, L100.0100, L3300.1200 #### [facility] [address] [place], [place], [id number] Sodium [Moles/Vol] 139 mmol/L Normal 133-145 [facility] Comment on above: Performed By: #### L 503.6075, L3100.5440, L501.6710, L800.1280, L503.5510, L3400.3800, L101.9900, L300.3900, L803.2200, L3100.6900, L500.4100, L501.9985, L503.6550, L500.4050, L3400.0700, L3300.0100, L100.0100, L3300.1200 #### [facility] [address] [place], [place], [id number] T PROT 7.6 g/dL Normal 5.9-8.4 [facility] Comment on above: Performed By: #### L 503.6075, L3100.5440, L501.6710, L800.1280, L503.5510, L3400.3800, L101.9900, L300.3900, L803.2200, L3100.6900, L500.4100, L501.9985, L503.6550, L500.4050, L3400.0700, L3300.0100, L100.0100, L3300.1200 #### [facility] [address] [place], [place], [id number] Urea nitrogen [Mass/Vol] 12 mg/dL Normal 4-19 [facility] Comment on above: Performed By: #### L 503.6075, L3100.5440, L501.6710, L800.1280, L503.5510, L3400.3800, L101.9900, L300.3900, L803.2200, L3100.6900, L500.4100, L501.9985, L503.6550, L500.4050, L3400.0700, L3300.0100, L100.0100, L3300.1200 #### [facility] [address] [place], [place], [id number] Eosinophil percentageOrdered By: Raven Garcia on 02-15-2025 Eosinophils/100 WBC (Bld) 2.0 % 0-5 [facility] Erythrocyte distribution wid th ratioOrdered By: Raven Garcia on 02-15-2025 Erythrocyte distribution width (RBC) [Ratio] 14.6 % 11.6-14.6 [facility] Erythrocyte distribution wid th standard deviationOrdered By: Raven Garcia on 02-15-2025 Erythrocyte distribution width (RBC) [Ratio] 44.2 fl High 35.1-43.9 [facility] Glomerular filtration rate ( GFR) estimation/1.73 sq m using serum, plasma, or whole bOrdered By: Raven Garcia on 02-15-2025 GFR/1.73 sq M.predicted among non-blacks MDRD (S/P/Bld) [Vol rate/Area] 73 mL/min/{1.73_m2} >60 [facility] Comment on above: mL/min/1.73m2 CKD-EP I Creatinine Equation (2020) Hematocrit Auto (Bld) [Volum e fraction]Ordered By: Raven Garcia on 02-15-2025 Hematocrit (Bld) [Volume fraction] 46.0 % 37-47 [facility] Hemoglobin measurementOrdere d By: Raven Garcia on 02-15-2025 Hemoglobin (Bld) [Mass/Vol] 15.1 g/dL High 12.0-15.0 [facility] Immature granulocytes/100 WB C Auto (Bld)Ordered By: Raven Garcia on 02-15-2025 Immature granulocytes/100 WBC (Bld) 0.500 % 0.0-0.9 [facility] Comment on above: IG% - Immature Granu locytes (promyelocytes, myelocytes and metamyelocytes) > 1% indicates that a LEFT SHIFT is Present. Laboratory - Chemistry and C hemistry - challengeOrdered By: Raven Garcia on 02-15-2025 AST [Catalytic activity/Vol] 36 U/L High <32 [facility] MCV (mean corpuscular volume ) determinationOrdered By: Raven Garcia on 02-15-2025 MCV (RBC) [Entitic vol] 84.2 fL 81-99 [facility] Mean corpuscular hemoglobin (MCH) determinationOrdered By: Raven Garcia on 02-15-2025 MCH (RBC) [Entitic mass] 27.7 pg 27.0-32.0 [facility] Mean corpuscular hemoglobin concentration (MCHC) determinationOrdered By: Raven Garcia on 02-15-2025 MCHC (RBC) [Mass/Vol] 32.8 g/dL 32-36 [facility] Mean platelet volume determi nationOrdered By: Raven Garcia on 02-15-2025 Platelet mean volume (Bld) [Entitic vol] 11.1 fL 6.2-12.0 [facility] Monocyte percentageOrdered B y: Raven Garcia on 02-15-2025 Monocytes/100 WBC (Bld) 7.9 % 0-10 [facility] Neutrophil percentageOrdered By: Raven Garcia on 02-15-2025 Neutrophils/100 WBC (Bld) 78.2 % High 47-70 [facility] Nucleated red blood cell per centageOrdered By: Raven Garcia on 02-15-2025 Nucleated RBC/100 WBC (Bld) [Ratio] 0 % 0-5 [facility] Platelet countOrdered By: Doreen Garcia on 02-15-2025 Platelets (Bld) [#/Vol] 268 10*3/uL 150-450 [facility] Potassium measurement (mass/ volume)Ordered By: Raven Garcia on 02-15-2025 Potassium (Unsp spec) [Mass/Vol] 4.1 mmol/L 3.3-5.1 [facility] RBC Auto (Bld) [#/Vol]Ordere d By: Raven Garcia on 02-15-2025 RBC (Bld) [#/Vol] 5.46 10*6/uL High 4.2-5.4 [facility] Serum creatinine measurement (mass/volume)Ordered By: Raven Garcia on 02-15-2025 Creatinine [Mass/Vol] 0.82 mg/dL 0.70-1.20 [facility] Serum globulin measurementOr dered By: Raven Garcia on 02-15-2025 Globulin (S) [Mass/Vol] 3.6 g/dL 2.2-4.2 [facility] Serum glucose measurement (m ass/volume)Ordered By: Raven Garcia on 02-15-2025 Glucose [Mass/Vol] 102 mg/dL High 70-99 [facility] Serum or plasma alanine magallanes otransferase (ALT) measurementOrdered By: Raven Garcia on 02-15-2025 ALT [Catalytic activity/Vol] 25 U/L <35 [facility] Serum or plasma albumin darnell urement (mass/volume)Ordered By: Raven Garcia on 02-15-2025 Albumin [Mass/Vol] 4.0 g/dL 3.4-4.8 [facility] Serum or plasma albumin/glob ulin mass ratioOrdered By: Raven Garcia on 02-15-2025 Albumin/Globulin [Mass ratio] 1.1 {ratio} 0.9-2.4 [facility] Serum or plasma alkaline erlin sphatase measurementOrdered By: Raven Garcia on 02-15-2025 ALP [Catalytic activity/Vol] 142 U/L High 35-104 [facility] Serum or plasma calcium darnell urement (mass/volume)Ordered By: Raven Garcia on 02-15-2025 Calcium [Mass/Vol] 9.3 mg/dL 7.6-11.0 [facility] Serum or plasma urea nitroge n measurement (mass/volume)Ordered By: Raven Garcia on 02-15-2025 Urea nitrogen [Mass/Vol] 12 mg/dL 4-19 [facility] Sodium levelOrdered By: Espinoza Garcia on 02-15-2025 Sodium [Moles/Vol] 139 mmol/L 133-145 [facility] Total proteinOrdered By: Bri Garcia on 02-15-2025 Protein [Mass/Vol] 7.6 g/dL 5.9-8.4 [facility] White blood cell (WBC) count Ordered By: Raven Garcia on 02-15-2025 WBC (Bld) [#/Vol] 8.0 10*3/uL 4.4-11.0 [facility] ABD Limited w/ Elastographyo n 01-18-2025 ABD Limited w/ Elastography [facility] Imaging Services [address] [place] [address] ABD Limited w/ Elastography MR#: [id number] Acct: [id number] Name: LAVELLE RUEDA Rep #: [id number] : 1945 F 79 From: Deonte hernández MD PCP: Dr. Bill Corado MD Status: REG CLI Study: ABD Limited w/ Elastography Date of Exam: 12/23 01/15 Exam# [id number] Ordering Dr: Raven Garcia PROCEDURE: ABD LIMITED W/ ELASTOGRAPHY REASON FOR EXAM: FATTY LIVER COMPARISON: Prior study dated January 17, 2024. TECHNIQUE: Right upper quadrant abdominal ultrasound. Rolly ElastQ Imaging shear wave elastography for non- invasive assessment of liver tissue stiffness. Rolly EPIQ Elite. FINDINGS: LIVER: Size: Unremarkable Length: 16.1 cm Echotexture: Diffusely echogenic suggesting fatty infiltration Contour: Normal Lesions: None identified Elastography: EQI Med: 13.9 kPa EQI Med Paulo: 2.1 m/s IQR/Med: 26 %* GALLBLADDER: No stones sludge wall thickening or tenderness. COMMON BILE DUCT: Not visualized due to overlying bowel gas. . PANCREAS: Obscured by bowel gas. The right kidney measures 9.6 cm 4.7 cm 5.1 cm. Renal cortex measures 0.9 cm. There is a 1.1 cm x 1.1 cm x 0.9 cm renal cyst. There are 2 tiny nonobstructive intrarenal calculi. No right upper quadrant ascites. US/ABD Limited w/ Elastography IMPRESSION: SEVERE HEPATIC FIBROSIS / CIRRHOSIS Fatty infiltration of the liver. Reference Values: SRU <1.37 m/s (5.7kPa): No to mild fibrosis 1.37 m/s - 2.2 m/s: Moderate to severe fibrosis >2.2 m/s (15kPa): Significant fibrosis / cirrhosis METAVIR Score F2 or higher: 1.34 m/s (5.7kPa) F3 or higher: 1.55 m/s (7.3kPa) F4: 1.80 m/s (10kPa) * If the IQR/Med is >30%, the variance in the measurements is a large and the accuracy of the measurement may be in question. Reading Location: [id number] CC: Dr. Bill Corado MD; JUDY Neal Manager Star: Signed Normal [facility] CBC-Complete Blood Cnt No Di ffon 12-19-2024 Erythrocyte distribution width (RBC) [Ratio] 14.4 % Normal 11.6-14.6 [facility] Comment on above: Performed By: #### L 503.6075, L3100.5440, L501.6710, L800.1280, L503.5510, L3400.3800, L101.9900, L300.3900, L803.2200, L3100.6900, L500.4100, L501.9985, L503.6550, L500.4050, L3400.0700, L3300.0100, L100.0100, L3300.1200 #### [facility] [address] [place], [place], [address] Hematocrit (Bld) [Volume fraction] 38.6 % Normal 37-47 [facility] Comment on above: Performed By: #### L 503.6075, L3100.5440, L501.6710, L800.1280, L503.5510, L3400.3800, L101.9900, L300.3900, L803.2200, L3100.6900, L500.4100, L501.9985, L503.6550, L500.4050, L3400.0700, L3300.0100, L100.0100, L3300.1200 #### [facility] [address] [place], [address] Hemoglobin (Bld) [Mass/Vol] 12.4 g/dL Normal 12.0-15.0 [facility] Comment on above: Performed By: #### L 503.6075, L3100.5440, L501.6710, L800.1280, L503.5510, L3400.3800, L101.9900, L300.3900, L803.2200, L3100.6900, L500.4100, L501.9985, L503.6550, L500.4050, L3400.0700, L3300.0100, L100.0100, L3300.1200 #### [facility] [address] [place], [address] MCH (RBC) [Entitic mass] 26.8 pg Low 27.0-32.0 [facility] Comment on above: Performed By: #### L 503.6075, L3100.5440, L501.6710, L800.1280, L503.5510, L3400.3800, L101.9900, L300.3900, L803.2200, L3100.6900, L500.4100, L501.9985, L503.6550, L500.4050, L3400.0700, L3300.0100, L100.0100, L3300.1200 #### [facility] [address] [facility] [place], [address] MCHC (RBC) [Mass/Vol] 32.1 g/dL Normal 32-36 [facility] Comment on above: Performed By: #### L 503.6075, L3100.5440, L501.6710, L800.1280, L503.5510, L3400.3800, L101.9900, L300.3900, L803.2200, L3100.6900, L500.4100, L501.9985, L503.6550, L500.4050, L3400.0700, L3300.0100, L100.0100, L3300.1200 #### [facility] [address], [address] MCV (RBC) [Entitic vol] 83.5 fL Normal 81-99 [facility] Comment on above: Performed By: #### L 503.6075, L3100.5440, L501.6710, L800.1280, L503.5510, L3400.3800, L101.9900, L300.3900, L803.2200, L3100.6900, L500.4100, L501.9985, L503.6550, L500.4050, L3400.0700, L3300.0100, L100.0100, L3300.1200 #### [facility] [address] [facility] [place], [address] Platelet mean volume (Bld) [Entitic vol] 11.5 fL Normal 6.2-12.0 [facility] Comment on above: Performed By: #### L 503.6075, L3100.5440, L501.6710, L800.1280, L503.5510, L3400.3800, L101.9900, L300.3900, L803.2200, L3100.6900, L500.4100, L501.9985, L503.6550, L500.4050, L3400.0700, L3300.0100, L100.0100, L3300.1200 #### [facility] [address] [facility] [place], [address] Platelets (Bld) [#/Vol] 216 10*3/uL Normal 150-450 [facility] Comment on above: Performed By: #### L 503.6075, L3100.5440, L501.6710, L800.1280, L503.5510, L3400.3800, L101.9900, L300.3900, L803.2200, L3100.6900, L500.4100, L501.9985, L503.6550, L500.4050, L3400.0700, L3300.0100, L100.0100, L3300.1200 #### [facility] [address] [place], [address] RBC (Bld) [#/Vol] 4.62 10*6/uL Normal 4.2-5.4 [facility] Comment on above: Performed By: #### L 503.6075, L3100.5440, L501.6710, L800.1280, L503.5510, L3400.3800, L101.9900, L300.3900, L803.2200, L3100.6900, L500.4100, L501.9985, L503.6550, L500.4050, L3400.0700, L3300.0100, L100.0100, L3300.1200 #### [facility] [address] [facility] [place], [address] RDW SD 43.8 fl Normal 35.1-43.9 [facility] Comment on above: Performed By: #### L 503.6075, L3100.5440, L501.6710, L800.1280, L503.5510, L3400.3800, L101.9900, L300.3900, L803.2200, L3100.6900, L500.4100, L501.9985, L503.6550, L500.4050, L3400.0700, L3300.0100, L100.0100, L3300.1200 #### [facility] [address] [facility] [place], [address] (245) WBC (Bld) [#/Vol] 8.9 10*3/uL Normal 4.4-11.0 [facility] Comment on above: Performed By: #### L 503.6075, L3100.5440, L501.6710, L800.1280, L503.5510, L3400.3800, L101.9900, L300.3900, L803.2200, L3100.6900, L500.4100, L501.9985, L503.6550, L500.4050, L3400.0700, L3300.0100, L100.0100, L3300.1200 #### [facility] [address] [facility] [address] [place], [place], [id number] HCT Normal 37-47 [facility] Comment on above: Result Comment: This specimen has been REJECTED due to Laboratory criteria: Clotted. ARUN has been notified of need of recollection. 12/19/242316 [facility] Performed By: #### L 503.6075, L3100.5440, L501.6710, L800.1280, L503.5510, L3400.3800, L101.9900, L300.3900, L803.2200, L3100.6900, L500.4100, L501.9985, L503.6550, L500.4050, L3400.0700, L3300.0100, L100.0100, L3300.1200 #### [facility] [address] [facility] [place], [place], [address] HGB Normal 12.0-15.0 [facility] Comment on above: Result Comment: This specimen has been REJECTED due to Laboratory criteria: Clotted. ARUN has been notified of need of recollection. 12/19/242316 [facility] Performed By: #### L 503.6075, L3100.5440, L501.6710, L800.1280, L503.5510, L3400.3800, L101.9900, L300.3900, L803.2200, L3100.6900, L500.4100, L501.9985, L503.6550, L500.4050, L3400.0700, L3300.0100, L100.0100, L3300.1200 #### [facility] [address] [place], [place], [address] [facility] Normal 27.0-32.0 [facility] Comment on above: Result Comment: This specimen has been REJECTED due to Laboratory criteria: Clotted. ARUN has been notified of need of recollection. 12/19/242316 [facility] Performed By: #### L 503.6075, L3100.5440, L501.6710, L800.1280, L503.5510, L3400.3800, L101.9900, L300.3900, L803.2200, L3100.6900, L500.4100, L501.9985, L503.6550, L500.4050, L3400.0700, L3300.0100, L100.0100, L3300.1200 #### [facility] [address] [place], [place], [id number] [facility] Normal 32-36 [facility] Comment on above: Result Comment: This specimen has been REJECTED due to Laboratory criteria: Clotted. ARUN has been notified of need of recollection. 12/19/242316 [facility] Performed By: #### L 503.6075, L3100.5440, L501.6710, L800.1280, L503.5510, L3400.3800, L101.9900, L300.3900, L803.2200, L3100.6900, L500.4100, L501.9985, L503.6550, L500.4050, L3400.0700, L3300.0100, L100.0100, L3300.1200 #### [facility] [address] [place], [place], [address] MCV Normal 81-99 [facility] Comment on above: Result Comment: This specimen has been REJECTED due to Laboratory criteria: Clotted. ARUN has been notified of need of recollection. 12/19/242316 [facility] Performed By: #### L 503.6075, L3100.5440, L501.6710, L800.1280, L503.5510, L3400.3800, L101.9900, L300.3900, L803.2200, L3100.6900, L500.4100, L501.9985, L503.6550, L500.4050, L3400.0700, L3300.0100, L100.0100, L3300.1200 #### [facility] [address] [place], [place], [id number] PLT Normal 150-450 [facility] Comment on above: Result Comment: This specimen has been REJECTED due to Laboratory criteria: Clotted. ARUN has been notified of need of recollection. 12/19/242316 [facility] Performed By: #### L 503.6075, L3100.5440, L501.6710, L800.1280, L503.5510, L3400.3800, L101.9900, L300.3900, L803.2200, L3100.6900, L500.4100, L501.9985, L503.6550, L500.4050, L3400.0700, L3300.0100, L100.0100, L3300.1200 #### [facility] [address] [facility] [address] [place], [place], [id number] (034) RBC Normal 4.2-5.4 [facility] Comment on above: Result Comment: This specimen has been REJECTED due to Laboratory criteria: Clotted. ARUN has been notified of need of recollection. 12/19/242316 [facility] Performed By: #### L 503.6075, L3100.5440, L501.6710, L800.1280, L503.5510, L3400.3800, L101.9900, L300.3900, L803.2200, L3100.6900, L500.4100, L501.9985, L503.6550, L500.4050, L3400.0700, L3300.0100, L100.0100, L3300.1200 #### [facility] [address] [place], [address] RDW CV Normal 11.6-14.6 [facility] Comment on above: Result Comment: This specimen has been REJECTED due to Laboratory criteria: Clotted. ARUN has been notified of need of recollection. 12/19/242316 [facility] Performed By: #### L 503.6075, L3100.5440, L501.6710, L800.1280, L503.5510, L3400.3800, L101.9900, L300.3900, L803.2200, L3100.6900, L500.4100, L501.9985, L503.6550, L500.4050, L3400.0700, L3300.0100, L100.0100, L3300.1200 #### [facility] [address] [place], [address] RDW SD Normal 35.1-43.9 [facility] Comment on above: Result Comment: This specimen has been REJECTED due to Laboratory criteria: Clotted. ARUN has been notified of need of recollection. 12/19/242316 [facility] Performed By: #### L 503.6075, L3100.5440, L501.6710, L800.1280, L503.5510, L3400.3800, L101.9900, L300.3900, L803.2200, L3100.6900, L500.4100, L501.9985, L503.6550, L500.4050, L3400.0700, L3300.0100, L100.0100, L3300.1200 #### [facility] [address] [place], [address] WBC Normal 4.4-11.0 [facility] Comment on above: Result Comment: This specimen has been REJECTED due to Laboratory criteria: Clotted. ARUN has been notified of need of recollection. 12/19/242316 [facility] Performed By: #### L 503.6075, L3100.5440, L501.6710, L800.1280, L503.5510, L3400.3800, L101.9900, L300.3900, L803.2200, L3100.6900, L500.4100, L501.9985, L503.6550, L500.4050, L3400.0700, L3300.0100, L100.0100, L3300.1200 #### [facility] [address] [facility] [place], [address] Emergency Department Summary on 12-19-2024 Emergency Department Summary [facility] Medical Records Department [address] [place] [address] Emergency Department Summary 12/19/24 MR#: [id number] Acct: [id number] Name: LAVELLE RUEDA Rep #: [id number] : 1945 79 From: Juan Miguel Covarrubias MD PCP: Dr. Bill Corado MD Status:REG ER Location: ED HPI History of Present Illness Chief Complaint: Nosebleed Informant: patient Narrative Narrative: 79-year-old female presenting for nosebleed that she states has been a relatively slow drip through from the right side since yesterday off and on. She states she feels fatigued but does not think that is a new symptom. She denies taking any blood thinners. She denies any near-syncope or syncope. No foreign bodies in her nose, no nasal injuries lately or head injuries, and denies blowing her nose lately or any other obvious cause of this. [facility] Medical History Abnormal finding on thyroid function test Depression Hyperthyroidism GERD (gastroesophageal reflux disease) Myocardial infarct Hypertension Stroke/cerebrovascular accident Dementia TIA (transient ischemic attack) Fracture of pubic ramus Colitis Edema Chronic cough PND (paroxysmal nocturnal dyspnea) Postoperative atrial fibrillation (11/06/20) Atherosclerotic heart disease of [place] coronary artery without angina pectoris History of non-ST elevation myocardial infarction (NSTEMI) (01/02/21) Anxiety Heme positive stool Anxiety and depression Iron deficiency anemia Pleural effusion, left Pleuritis Community acquired pneumonia Osteoarthritis Atherosclerosis of coronary artery of [place] heart without angina pectoris Essential (primary) hypertension HLD (hyperlipidemia) Home Medications ???Medication ???Instructions ???Recorded ???Last Taken ???Type acetaminophen 500 mg capsule 1,000 mg PO Q8H PRN Pain, Moderate 05/14/21 Unknown History aspirin 81 mg tablet,delayed 81 mg PO QODAY 07/09/21 05/22/22 1 0:00 History release (Adult Aspirin Regimen) cyanocobalamin (vitamin B-12) 1,000 mcg PO DAILY 05/22/22 Unknow n History 1,000 mcg capsule ondansetron HCl 4 mg tablet 4 mg PO Q6H PRN Nausea 05/22/22 Un known History potassium chloride 10 mEq 20 meq (2 x 10 mEq) PO DAILY Pt Unknown Rx tablet,extended release needs 10 meq pills to swallow easier #60 tabs calcium carbonate-vitamin D3 1 tab PO DAILY 03/20/24 Unknown Hi story [Calcium 600 with Vitamin D3] benzonatate 100 mg capsule 100 mg PO TID PRN Cough #30 caps 0 07/05/24 Unknown Rx escitalopram oxalate 10 mg tablet 10 mg PO DAILY anxiety #90 tabs 0 07/05/24 Unknown Rx memantine 10 mg tablet 10 mg PO BID #180 tabs 07/05/24 Un known Rx nortriptyline 25 mg capsule 25 mg PO DAILY #90 caps 07/05/24 U nknown Rx atorvastatin 80 mg tablet 40 mg PO QHS 09/04/24 Unknown Hist ory resmetirom 80 mg tablet (Rezdiffra) 80 mg PO DAILY Fatty liver dise ase 09/04/24 Unknown History vitamin E 800 unit capsule 800 unit PO QDAY 09/04/24 Unknown History metoprolol succinate 50 mg 50 mg PO DAILY #90 TABLETS 09/15/ 5 Unknown Rx tablet,extended release 24 hr alendronate 70 mg tablet 70 mg PO QWEEK #12 tabs 10/01/24 U nknown Rx clopidogrel 75 mg tablet 75 mg PO DAILY #90 tabs 10/11/24 U nknown Rx levothyroxine 25 mcg tablet 25 mcg PO DAILY THYROID #90 tabs 0 11/01/24 Unknown Rx pantoprazole 20 mg tablet,delayed 20 mg PO DAILY #90 tabs 11/01/24 Unknown Rx release furosemide 40 mg tablet 40 mg PO DAILY #90 tabs 11/27/24 U nknown Rx Allergy/AdvReac Type Severity Reaction Status Date / Time lisinopril AdvReac Intermediate cough Verified 12/19/24 21:10 Family History Father Rheumatoid arthritis Mother CHF (congestive heart failure) Brother Age: 80 High cholesterol Uncle Heart disease Surgical History H/O coronary artery bypass surgery (11/04/20) History of repair of retinal tear by laser photocoagulation History of left heart catheterization (10/30/20) History of coronary artery stent placement (03/22/06) Hx of appendectomy Social History household members: none housing: house 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 Normal [facility] Erythrocyte distribution wid th ratioOrdered By: Juan Miguel Covarrubias on 12-19-2024 Erythrocyte distribution width (RBC) [Ratio] 14.4 % 11.6-14.6 [facility] Erythrocyte distribution wid th standard deviationOrdered By: Juan Miguel Covarrubias on 12-19-2024 Erythrocyte distribution width (RBC) [Ratio] 43.8 fl 35.1-43.9 [facility] Hematocrit Auto (Bld) [Volum e fraction]Ordered By: Juan Miguel Covarrubias on 12-19-2024 Hematocrit (Bld) [Volume fraction] 38.6 % 37-47 [facility] Hemoglobin measurementOrdere d By: Juan Miguel Covarrubias on 12-19-2024 Hemoglobin (Bld) [Mass/Vol] 12.4 g/dL 12.0-15.0 [facility] MCV (mean corpuscular volume ) determinationOrdered By: Juan Miguel Covarrubias on 12-19-2024 MCV (RBC) [Entitic vol] 83.5 fL 81-99 [facility] Mean corpuscular hemoglobin (MCH) determinationOrdered By: Juan Miguel Covarrubias on 12-19-2024 MCH (RBC) [Entitic mass] 26.8 pg Low 27.0-32.0 [facility] Mean corpuscular hemoglobin concentration (MCHC) determinationOrdered By: Juan Miguel Covarrubias on 12-19-2024 MCHC (RBC) [Mass/Vol] 32.1 g/dL 32-36 [facility] Mean platelet volume determi nationOrdered By: Juan Miguel Covarrubias on 12-19-2024 Platelet mean volume (Bld) [Entitic vol] 11.5 fL 6.2-12.0 [facility] Platelet countOrdered By: Jeff Covarrubias on 12-19-2024 Platelets (Bld) [#/Vol] 216 10*3/uL 150-450 [facility] RBC Auto (Bld) [#/Vol]Ordere d By: Juan Miguel Covarrubias on 12-19-2024 RBC (Bld) [#/Vol] 4.62 10*6/uL 4.2-5.4 [facility] White blood cell (WBC) count Ordered By: Juan Miguel Covarrubias on 12-19-2024 WBC (Bld) [#/Vol] 8.9 10*3/uL 4.4-11.0 [facility] CA 19-9 Serial Monitoron CA 19-9 13 U/mL Normal 0-35 [facility] Comment on above: Result Comment: [employer] Electrochemiluminescence Immunoassay (ECLIA) Values obtained with different assay methods or kits cannot be used interchangeably. Results cannot be interpreted as absolute evidence of the presence or absence of malignant disease. Performed at: [address] [id number] [employer] Mechanic: Demetrius Ashraf PhD, Phone: [phone] Performed By: #### L 503.6075, L3100.5440, L501.6710, L800.1280, L503.5510, L3400.3800, L101.9900, L300.3900, L803.2200, L3100.6900, L500.4100, L501.9985, L503.6550, L500.4050, L3400.0700, L3300.0100, L100.0100, L3300.1200 #### [facility] [address] [place], [place], [id number] Absolute lymphocyte countOrd ered By: Raven Garcia on 11-01-2024 Lymphocytes Auto (Unsp spec) [#/Vol] 1.15 10*3/uL 0.83-4.51 [facility] Absolute neutrophil countOrd ered By: Raven Garcia on 11-01-2024 Neutrophils (Bld) [#/Vol] 5.6 10*3/uL 2.0-7.7 [facility] Anion gap in Serum or Plasma Ordered By: Raven Garcia on 11-01-2024 Anion gap [Moles/Vol] 11 mmol/L 5-15 [facility] Automated lymphocyte count a s percentage of total leukocytesOrdered By: Raven Garcia on 11-01-2024 Lymphocytes/100 WBC Auto (Unsp spec) 14.9 % Low 19-41 [facility] BUN/creatinine ratioOrdered By: Raven Garcia on 11-01-2024 Urea nitrogen/Creatinine [Mass ratio] 14.9 mg/mg 10-20 [facility] Basophil percentageOrdered B y: Raven Garcia on 11-01-2024 Basophils/100 WBC (Bld) 0.9 % 0-1 [facility] Bilirubin, totalOrdered By: Raven Garcia on 11-01-2024 Bilirubin [Mass/Vol] 0.56 mg/dL 0.00-1.30 [facility] CBC W/Diff, Automatedon 10-22 Absolute Lymph 1.15 X10 3/uL Normal 0.83-4.51 [facility] Comment on above: Performed By: #### L 503.6075, L3100.5440, L501.6710, L800.1280, L503.5510, L3400.3800, L101.9900, L300.3900, L803.2200, L3100.6900, L500.4100, L501.9985, L503.6550, L500.4050, L3400.0700, L3300.0100, L100.0100, L3300.1200 #### [facility] [address] [facility], [address] Absolute Neut 5.6 X10 3/uL Normal 2.0-7.7 [facility] Comment on above: Performed By: #### L 503.6075, L3100.5440, L501.6710, L800.1280, L503.5510, L3400.3800, L101.9900, L300.3900, L803.2200, L3100.6900, L500.4100, L501.9985, L503.6550, L500.4050, L3400.0700, L3300.0100, L100.0100, L3300.1200 #### [facility] [address] [place], [address] Basophils/100 WBC (Bld) 0.9 % Normal 0-1 [facility] Comment on above: Performed By: #### L 503.6075, L3100.5440, L501.6710, L800.1280, L503.5510, L3400.3800, L101.9900, L300.3900, L803.2200, L3100.6900, L500.4100, L501.9985, L503.6550, L500.4050, L3400.0700, L3300.0100, L100.0100, L3300.1200 #### [facility] [address] [place], [address] Eosinophils/100 WBC (Bld) 1.2 % Normal 0-5 [facility] Comment on above: Performed By: #### L 503.6075, L3100.5440, L501.6710, L800.1280, L503.5510, L3400.3800, L101.9900, L300.3900, L803.2200, L3100.6900, L500.4100, L501.9985, L503.6550, L500.4050, L3400.0700, L3300.0100, L100.0100, L3300.1200 #### [facility] [address] [facility] [place], [address] Erythrocyte distribution width (RBC) [Ratio] 14.5 % Normal 11.6-14.6 [facility] Comment on above: Performed By: #### L 503.6075, L3100.5440, L501.6710, L800.1280, L503.5510, L3400.3800, L101.9900, L300.3900, L803.2200, L3100.6900, L500.4100, L501.9985, L503.6550, L500.4050, L3400.0700, L3300.0100, L100.0100, L3300.1200 #### [facility] [address] [facility] [place], [address] Hematocrit (Bld) [Volume fraction] 45.4 % Normal 37-47 [facility] Comment on above: Performed By: #### L 503.6075, L3100.5440, L501.6710, L800.1280, L503.5510, L3400.3800, L101.9900, L300.3900, L803.2200, L3100.6900, L500.4100, L501.9985, L503.6550, L500.4050, L3400.0700, L3300.0100, L100.0100, L3300.1200 #### [facility] [address] [facility] [place], [address] Hemoglobin (Bld) [Mass/Vol] 14.7 g/dL Normal 12.0-15.0 [facility] Comment on above: Performed By: #### L 503.6075, L3100.5440, L501.6710, L800.1280, L503.5510, L3400.3800, L101.9900, L300.3900, L803.2200, L3100.6900, L500.4100, L501.9985, L503.6550, L500.4050, L3400.0700, L3300.0100, L100.0100, L3300.1200 #### [facility] [address] [facility] [place], [address] IG% 0.500 Normal 0.0-0.9 [facility] Comment on above: Result Comment: IG% - Immature Granulocytes (promyelocytes, myelocytes and metamyelocytes) > 1% indicates that a LEFT SHIFT is Present. Performed By: #### L 503.6075, L3100.5440, L501.6710, L800.1280, L503.5510, L3400.3800, L101.9900, L300.3900, L803.2200, L3100.6900, L500.4100, L501.9985, L503.6550, L500.4050, L3400.0700, L3300.0100, L100.0100, L3300.1200 #### [facility] [address] [facility] [place], [address] Lymphocytes/100 WBC (Bld) 14.9 % Low 19-41 [facility] Comment on above: Performed By: #### L 503.6075, L3100.5440, L501.6710, L800.1280, L503.5510, L3400.3800, L101.9900, L300.3900, L803.2200, L3100.6900, L500.4100, L501.9985, L503.6550, L500.4050, L3400.0700, L3300.0100, L100.0100, L3300.1200 #### [facility] [address] [facility] [place], [address] MCH (RBC) [Entitic mass] 26.9 pg Low 27.0-32.0 [facility] Comment on above: Performed By: #### L 503.6075, L3100.5440, L501.6710, L800.1280, L503.5510, L3400.3800, L101.9900, L300.3900, L803.2200, L3100.6900, L500.4100, L501.9985, L503.6550, L500.4050, L3400.0700, L3300.0100, L100.0100, L3300.1200 #### [facility] [address] [facility] [address] [place], [place], [id number] MCHC (RBC) [Mass/Vol] 32.4 g/dL Normal 32-36 [facility] Comment on above: Performed By: #### L 503.6075, L3100.5440, L501.6710, L800.1280, L503.5510, L3400.3800, L101.9900, L300.3900, L803.2200, L3100.6900, L500.4100, L501.9985, L503.6550, L500.4050, L3400.0700, L3300.0100, L100.0100, L3300.1200 #### [facility] [address] [place], [address] MCV (RBC) [Entitic vol] 83.0 fL Normal 81-99 [facility] Comment on above: Performed By: #### L 503.6075, L3100.5440, L501.6710, L800.1280, L503.5510, L3400.3800, L101.9900, L300.3900, L803.2200, L3100.6900, L500.4100, L501.9985, L503.6550, L500.4050, L3400.0700, L3300.0100, L100.0100, L3300.1200 #### [facility] [address] [facility] [place], [address] Monocytes/100 WBC (Bld) 9.3 % Normal 0-10 [facility] Comment on above: Performed By: #### L 503.6075, L3100.5440, L501.6710, L800.1280, L503.5510, L3400.3800, L101.9900, L300.3900, L803.2200, L3100.6900, L500.4100, L501.9985, L503.6550, L500.4050, L3400.0700, L3300.0100, L100.0100, L3300.1200 #### [facility] [address] [place], [address] Neutrophils/100 WBC (Bld) 73.2 % High 47-70 [facility] Comment on above: Performed By: #### L 503.6075, L3100.5440, L501.6710, L800.1280, L503.5510, L3400.3800, L101.9900, L300.3900, L803.2200, L3100.6900, L500.4100, L501.9985, L503.6550, L500.4050, L3400.0700, L3300.0100, L100.0100, L3300.1200 #### [facility] [address] [place], [place], [id number] (676) Nucleated RBC (Bld) [#/Vol] 0 10*3/uL Normal 0-5 [facility] Comment on above: Performed By: #### L 503.6075, L3100.5440, L501.6710, L800.1280, L503.5510, L3400.3800, L101.9900, L300.3900, L803.2200, L3100.6900, L500.4100, L501.9985, L503.6550, L500.4050, L3400.0700, L3300.0100, L100.0100, L3300.1200 #### [facility] [address] [place], [address] Platelet mean volume (Bld) [Entitic vol] 11.4 fL Normal 6.2-12.0 [facility] Comment on above: Performed By: #### L 503.6075, L3100.5440, L501.6710, L800.1280, L503.5510, L3400.3800, L101.9900, L300.3900, L803.2200, L3100.6900, L500.4100, L501.9985, L503.6550, L500.4050, L3400.0700, L3300.0100, L100.0100, L3300.1200 #### [facility] [address] [facility] [address] [place], [address] Platelets (Bld) [#/Vol] 263 10*3/uL Normal 150-450 [facility] Comment on above: Performed By: #### L 503.6075, L3100.5440, L501.6710, L800.1280, L503.5510, L3400.3800, L101.9900, L300.3900, L803.2200, L3100.6900, L500.4100, L501.9985, L503.6550, L500.4050, L3400.0700, L3300.0100, L100.0100, L3300.1200 #### [facility] [address] [place], [address] RBC (Bld) [#/Vol] 5.47 10*6/uL High 4.2-5.4 [facility] Comment on above: Performed By: #### L 503.6075, L3100.5440, L501.6710, L800.1280, L503.5510, L3400.3800, L101.9900, L300.3900, L803.2200, L3100.6900, L500.4100, L501.9985, L503.6550, L500.4050, L3400.0700, L3300.0100, L100.0100, L3300.1200 #### [facility] [address] [place], [address] RDW SD 43.3 fl Normal 35.1-43.9 [facility] Comment on above: Performed By: #### L 503.6075, L3100.5440, L501.6710, L800.1280, L503.5510, L3400.3800, L101.9900, L300.3900, L803.2200, L3100.6900, L500.4100, L501.9985, L503.6550, L500.4050, L3400.0700, L3300.0100, L100.0100, L3300.1200 #### [facility] [address] [place], [address] WBC (Bld) [#/Vol] 7.7 10*3/uL Normal 4.4-11.0 [facility] Comment on above: Performed By: #### L 503.6075, L3100.5440, L501.6710, L800.1280, L503.5510, L3400.3800, L101.9900, L300.3900, L803.2200, L3100.6900, L500.4100, L501.9985, L503.6550, L500.4050, L3400.0700, L3300.0100, L100.0100, L3300.1200 #### [facility] [address] [place], [address] Cancer antigen 19-9 measurem entOrdered By: Raven Garcia on 11-01-2024 Cancer antigen 19-9 measurement 13 U/mL 0-35 [facility] Comment on above: [facility] El ectrochemiluminescence Immunoassay(ECLIA)Values obtained with different assay methods or kits cannotbe used interchangeably. Results cannot be interpreted asabsolute evidence of the presence or absence of malignantdisease.Performed at: [facility] [place], [place] [id number] Director: Demetrius Ashraf PhD, Phone: [phone] Carbon dioxide, total [Moles /volume] in Central venous bloodOrdered By: Raven Garcia on 11-01-2024 CO2 [Moles/Vol] 24.0 mmol/L 21.0-32.0 [facility] Chloride assayOrdered By: Doreen Garcia on 11-01-2024 Chloride [Moles/Vol] 103 mmol/L 98-108 [facility] Comprehensive Metabolic Prof ilon 11-01-2024 Albumin [Mass/Vol] 4.1 g/dL Normal 3.4-4.8 [facility] Comment on above: Performed By: #### L 503.6075, L3100.5440, L501.6710, L800.1280, L503.5510, L3400.3800, L101.9900, L300.3900, L803.2200, L3100.6900, L500.4100, L501.9985, L503.6550, L500.4050, L3400.0700, L3300.0100, L100.0100, L3300.1200 #### [facility] [address] [place], [address] Albumin/Globulin [Mass ratio] 1.2 {ratio} Normal 0.9-2.4 [facility] Comment on above: Performed By: #### L 503.6075, L3100.5440, L501.6710, L800.1280, L503.5510, L3400.3800, L101.9900, L300.3900, L803.2200, L3100.6900, L500.4100, L501.9985, L503.6550, L500.4050, L3400.0700, L3300.0100, L100.0100, L3300.1200 #### [facility] [address] [place], [address] ALK PHOS 136 U/L High 35-104 [facility] Comment on above: Performed By: #### L 503.6075, L3100.5440, L501.6710, L800.1280, L503.5510, L3400.3800, L101.9900, L300.3900, L803.2200, L3100.6900, L500.4100, L501.9985, L503.6550, L500.4050, L3400.0700, L3300.0100, L100.0100, L3300.1200 #### [facility] [address] [place], [address] ALT [Catalytic activity/Vol] 25 U/L Normal <=34 [facility] Comment on above: Performed By: #### L 503.6075, L3100.5440, L501.6710, L800.1280, L503.5510, L3400.3800, L101.9900, L300.3900, L803.2200, L3100.6900, L500.4100, L501.9985, L503.6550, L500.4050, L3400.0700, L3300.0100, L100.0100, L3300.1200 #### [facility] [address] [place], [address] AST [Catalytic activity/Vol] 32 U/L Normal <=31 [facility] Comment on above: Performed By: #### L 503.6075, L3100.5440, L501.6710, L800.1280, L503.5510, L3400.3800, L101.9900, L300.3900, L803.2200, L3100.6900, L500.4100, L501.9985, L503.6550, L500.4050, L3400.0700, L3300.0100, L100.0100, L3300.1200 #### [facility] [address] [place], [address] Bilirubin [Mass/Vol] 0.56 mg/dL Normal 0.00-1.30 [facility] Comment on above: Performed By: #### L 503.6075, L3100.5440, L501.6710, L800.1280, L503.5510, L3400.3800, L101.9900, L300.3900, L803.2200, L3100.6900, L500.4100, L501.9985, L503.6550, L500.4050, L3400.0700, L3300.0100, L100.0100, L3300.1200 #### [facility] [address] [place], [place], [id number] (218) BUN/CRE 14.9 RATIO Normal 10-20 [facility] Comment on above: Performed By: #### L 503.6075, L3100.5440, L501.6710, L800.1280, L503.5510, L3400.3800, L101.9900, L300.3900, L803.2200, L3100.6900, L500.4100, L501.9985, L503.6550, L500.4050, L3400.0700, L3300.0100, L100.0100, L3300.1200 #### [facility] [address] [place], [address] (895) Calcium [Mass/Vol] 9.3 mg/dL Normal 7.6-11.0 [facility] Comment on above: Performed By: #### L 503.6075, L3100.5440, L501.6710, L800.1280, L503.5510, L3400.3800, L101.9900, L300.3900, L803.2200, L3100.6900, L500.4100, L501.9985, L503.6550, L500.4050, L3400.0700, L3300.0100, L100.0100, L3300.1200 #### [facility] [address] [place], [address] (014) Chloride [Moles/Vol] 103 mmol/L Normal 98-108 [facility] Comment on above: Performed By: #### L 503.6075, L3100.5440, L501.6710, L800.1280, L503.5510, L3400.3800, L101.9900, L300.3900, L803.2200, L3100.6900, L500.4100, L501.9985, L503.6550, L500.4050, L3400.0700, L3300.0100, L100.0100, L3300.1200 #### [facility] [address] [place], [address] CO2 [Moles/Vol] 24.0 mmol/L Normal 21.0-32.0 [facility] Comment on above: Performed By: #### L 503.6075, L3100.5440, L501.6710, L800.1280, L503.5510, L3400.3800, L101.9900, L300.3900, L803.2200, L3100.6900, L500.4100, L501.9985, L503.6550, L500.4050, L3400.0700, L3300.0100, L100.0100, L3300.1200 #### [facility] [address] [place], [place], [id number] Creatinine [Mass/Vol] 0.97 mg/dL Normal 0.70-1.20 [facility] Comment on above: Performed By: #### L 503.6075, L3100.5440, L501.6710, L800.1280, L503.5510, L3400.3800, L101.9900, L300.3900, L803.2200, L3100.6900, L500.4100, L501.9985, L503.6550, L500.4050, L3400.0700, L3300.0100, L100.0100, L3300.1200 #### [facility] [address] [place], [id number] GAP 11 Normal 5-15 [facility] Comment on above: Performed By: #### L 503.6075, L3100.5440, L501.6710, L800.1280, L503.5510, L3400.3800, L101.9900, L300.3900, L803.2200, L3100.6900, L500.4100, L501.9985, L503.6550, L500.4050, L3400.0700, L3300.0100, L100.0100, L3300.1200 #### [facility] [address] [place], [address] GFR/1.73 sq M.predicted among non-blacks MDRD (S/P/Bld) [Vol rate/Area] 60 mL/min/{1.73_m2} Normal >60 [facility] Comment on above: Result Comment: mL/m in/1.73m2 CKD-EPI Creatinine Equation (2020) Performed By: #### L 503.6075, L3100.5440, L501.6710, L800.1280, L503.5510, L3400.3800, L101.9900, L300.3900, L803.2200, L3100.6900, L500.4100, L501.9985, L503.6550, L500.4050, L3400.0700, L3300.0100, L100.0100, L3300.1200 #### [facility] [address] [place], [address] Globulin (S) [Mass/Vol] 3.4 g/dL Normal 2.2-4.2 [facility] Comment on above: Performed By: #### L 503.6075, L3100.5440, L501.6710, L800.1280, L503.5510, L3400.3800, L101.9900, L300.3900, L803.2200, L3100.6900, L500.4100, L501.9985, L503.6550, L500.4050, L3400.0700, L3300.0100, L100.0100, L3300.1200 #### [facility] [address] [place], [address] Glucose [Mass/Vol] 117 mg/dL High 70-99 [facility] Comment on above: Performed By: #### L 503.6075, L3100.5440, L501.6710, L800.1280, L503.5510, L3400.3800, L101.9900, L300.3900, L803.2200, L3100.6900, L500.4100, L501.9985, L503.6550, L500.4050, L3400.0700, L3300.0100, L100.0100, L3300.1200 #### [facility] [address] [place], [address] Potassium [Moles/Vol] 3.8 mmol/L Normal 3.3-5.1 [facility] Comment on above: Performed By: #### L 503.6075, L3100.5440, L501.6710, L800.1280, L503.5510, L3400.3800, L101.9900, L300.3900, L803.2200, L3100.6900, L500.4100, L501.9985, L503.6550, L500.4050, L3400.0700, L3300.0100, L100.0100, L3300.1200 #### [facility] [address] [place], [address] Sodium [Moles/Vol] 138 mmol/L Normal 133-145 [facility] Comment on above: Performed By: #### L 503.6075, L3100.5440, L501.6710, L800.1280, L503.5510, L3400.3800, L101.9900, L300.3900, L803.2200, L3100.6900, L500.4100, L501.9985, L503.6550, L500.4050, L3400.0700, L3300.0100, L100.0100, L3300.1200 #### [facility] [address] [place], [address] T PROT 7.5 g/dL Normal 5.9-8.4 [facility] Comment on above: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 mentioned Iodides Iodinated Contrast Media Lisinopril gi upset Current Outpatient Medications Medication Sig Dispense Refill alendronate (Fosamax) 70 MG tablet TAKE 1 TABLET BY MOUTH ONCE A WEEK WITH A FULL GLASS OF WATER ON AN EMPTY STOMACH. DO NOT LIE DOWN FOR 30 MINUTES aspirin 81 MG EC tablet Take 81 mg by mouth. atorvastatin (Lipitor) 80 MG tablet Take 1 tablet by mouth Nightly. benzonatate (Tessalon) 100 MG capsule Take 100 mg by mouth 3 times daily as needed for cough. Calcium Carbonate-Vitamin D (CALCIUM-VITAMIN D3 PO) Take 1 tablet by mouth in the morning and 1 tablet in the evening. 600mg Ca - 800 IUs Vit D. clopidogrel (Plavix) 75 MG tablet Take 1 tablet by mouth in the morning. cyanocobalamin (Vitamin B-12) 1000 MCG tablet Take 1,000 mcg by mouth in the morning. escitalopram (Lexapro) 10 MG tablet Take 1 tablet by mouth in the morning. furosemide (Lasix) 40 MG tablet Take 1 tablet by mouth in the morning and 1 tablet before bedtime. levothyroxine (Synthroid, Levoxyl) 25 MCG tablet TAKE 1 TABLET BY MOUTH ONCE DAILY ON AN EMPTY STOMACH FOR THYROID memantine (Namenda) 10 MG tablet Take 1 tablet (10 mg) by mouth 2 times daily. 180 tablet 1 metoprolol succinate XL (Toprol-XL) 50 MG 24 hr tablet Take 25 mg by mouth in the morning. nortriptyline (Pamelor) 25 MG capsule Take 25 mg by mouth in the morning and 25 mg before bedtime. ondansetron ODT (Zofran-ODT) 4 MG disintegrating tablet DISSOLVE 1 TABLET IN MOUTH EVERY 6 HOURS NEEDED FOR NAUSEA AND VOMITING pantoprazole (Pr (more content not included)... Normal [facility] 06-15-2024 Atypical pANCA <1:20 Normal Neg:<1:20 [facility] Comment on above: Order Comment: Test( s) [id number]-Oveogl, Serum or Plasmawas developed and its performance characteristicsdetermined by [employer]. It has not been cleared or approvedby the Food and Drug Administration. Result Comment: The atypical pANCA pattern has been observed in a significant percentage of patients with ulcerative colitis, primary sclerosing cholangitis and autoimmune hepatitis. Performed By: #### L 503.6075, L3100.5440, L501.6710, L800.1280, L503.5510, L3400.3800, L101.9900, L300.3900, L803.2200, L3100.6900, L500.4100, L501.9985, L503.6550, L500.4050, L3400.0700, L3300.0100, L100.0100, L3300.1200 #### [facility] [place], [address] Cytoplasmic Ab <1:20 Normal Neg:<1:20 [facility] Comment on above: Order Comment: Test( s) [id number]-Hakpfe, Serum or Plasmawas developed and its performance characteristicsdetermined by [employer]. It has not been cleared or approvedby the Food and Drug Administration. Performed By: #### L 503.6075, L3100.5440, L501.6710, L800.1280, L503.5510, L3400.3800, L101.9900, L300.3900, L803.2200, L3100.6900, L500.4100, L501.9985, L503.6550, L500.4050, L3400.0700, L3300.0100, L100.0100, L3300.1200 #### [facility] [address] [place], [place], [address] Perinuclear Ab. 1:80 Abnormal Neg:<1:20 [facility] Comment on above: Order Comment: Test( s) [id number]-Taqhkv, Serum or Plasmawas developed and its performance characteristicsdetermined by [employer]. It has not been cleared or approvedby the Food and Drug Administration. Result Comment: The presence of positive fluorescence exhibiting P-ANCA or C-ANCA patterns alone is not specific for the diagnosis of Jonny's Granulomatosis (WG) or microscopic polyangiitis. Decisions about treatment should not be based solely on ANCA IFA results. The International ANCA Group Consensus recommends follow up testing of positive sera with both MD- 3 and MPO-ANCA enzyme immunoassays. As many as 5% serum samples are positive only by EIA. Ref. AM J Clin Pathol 1999;111:507-513. Performed By: #### L 503.6075, L3100.5440, L501.6710, L800.1280, L503.5510, L3400.3800, L101.9900, L300.3900, L803.2200, L3100.6900, L500.4100, L501.9985, L503.6550, L500.4050, L3400.0700, L3300.0100, L100.0100, L3300.1200 #### [facility] [address] [place], [place], [address] Angiotensin Convert Enzymeon 06-15-2024 ANGIOT-CONV.ENZ 80 U/L Normal 14-82 [facility] Comment on above: Order Comment: Test( s) [id number]-Loxtyo, Serum or Plasmawas developed and its performance characteristicsdetermined by [employer]. It has not been cleared or approvedby the Food and Drug Administration. Performed By: #### L 503.6075, L3100.5440, L501.6710, L800.1280, L503.5510, L3400.3800, L101.9900, L300.3900, L803.2200, L3100.6900, L500.4100, L501.9985, L503.6550, L500.4050, L3400.0700, L3300.0100, L100.0100, L3300.1200 #### [facility] [address] [place], [address] Anti-Smooth Muscle ABSon ANTISMOOTH MUSC 63 Units Abnormal 0-19 [facility] Comment on above: Order Comment: Test( s) [id number]-Yzkcjd, Serum or Plasmawas developed and its performance characteristicsdetermined by [employer]. It has not been cleared or approvedby the Food and Drug Administration. Result Comment: Nega tive 0 - 19 Weak positive 20 - 30 Moderate to strong positive >30 Actin Antibodies are found in 52-85% of patients with autoimmune hepatitis or chronic active hepatitis and in 22% of patients with primary biliary cirrhosis. Performed By: #### L 503.6075, L3100.5440, L501.6710, L800.1280, L503.5510, L3400.3800, L101.9900, L300.3900, L803.2200, L3100.6900, L500.4100, L501.9985, L503.6550, L500.4050, L3400.0700, L3300.0100, L100.0100, L3300.1200 #### [facility] [address] [place], [address] Ceruloplasminon 06-15-2024 CERULOPLASMIN 29.1 mg/dL Normal 19.0-39.0 [facility] Comment on above: Order Comment: Test( s) [id number]-Pycfra, Serum or Plasmawas developed and its performance characteristicsdetermined by [employer]. It has not been cleared or approvedby the Food and Drug Administration. Performed By: #### L 503.6075, L3100.5440, L501.6710, L800.1280, L503.5510, L3400.3800, L101.9900, L300.3900, L803.2200, L3100.6900, L500.4100, L501.9985, L503.6550, L500.4050, L3400.0700, L3300.0100, L100.0100, L3300.1200 #### [facility] [address] [place], [place], [id number] Copper, Serum or Plasmaon COPPER, SERUM 127 ug/dL Normal 80-158 [facility] Comment on above: Order Comment: Test( s) [id number]-Qhyjfs, Serum or Plasmawas developed and its performance characteristicsdetermined by [employer]. It has not been cleared or approvedby the Food and Drug Administration. Result Comment: Dete ction Limit = 5 Performed By: #### L 503.6075, L3100.5440, L501.6710, L800.1280, L503.5510, L3400.3800, L101.9900, L300.3900, L803.2200, L3100.6900, L500.4100, L501.9985, L503.6550, L500.4050, L3400.0700, L3300.0100, L100.0100, L3300.1200 #### [facility] [address] [place], [address] Transferrinon 06-15-2024 Transferrin [Mass/Vol] 294 mg/dL Normal 192-364 [facility] Comment on above: Order Comment: Test( s) [id number]-Zehygp, Serum or Plasmawas developed and its performance characteristicsdetermined by [employer]. It has not been cleared or approvedby the Food and Drug Administration. Result Comment: Perf ormed at: [facility] - [facility] [address] [id number] Farm Implement Mechanic: Demetrius Ashraf PhD, Phone: [phone] Performed at: - [facility] [id number] Farm Implement Mechanic: Tristin Wells MD, Phone: [phone] Performed By: #### L 503.6075, L3100.5440, L501.6710, L800.1280, L503.5510, L3400.3800, L101.9900, L300.3900, L803.2200, L3100.6900, L500.4100, L501.9985, L503.6550, L500.4050, L3400.0700, L3300.0100, L100.0100, L3300.1200 #### [facility] [address]. [place], [place], [id number] DEVON Comprehensive Panelon DEVON TABLE Comment Normal . [facility] Comment on above: Result Comment: Auto antibody Disease Association Condition Frequency --------- Antinuclear Antibody, SLE, mixed connective Direct (DEVON-D) tissue diseases --------- dsDNA SLE 40 - 60% --------- Chromatin Drug induced SLE 90% SLE 48 - 97% --------- SSA (Ro) SLE 25 - 35% Sjogren's Syndrome 40 - 70% Lupus 100% --------- SSB (La) SLE 10% Sjogren's Syndrome 30% --------- Sm (anti-Michel) SLE 15 - 30% --------- CLINICAL REHABILITATION AIDE Mixed Connective Tissue Disease 95% (U1 nRNP, SLE 30 - 50% anti-ribonucleoprotein) Polymyositis and/or Dermatomyositis 20% --------- Scl-70 (antiDNA Scleroderma (diffuse) 20 - 35% topoisomerase) Crest 13% --------- Kayli-1 Polymyositis and/or Dermatomyositis 20 - 40% --------- Centromere B Scleroderma - Crest variant 80% Performed By: #### L 503.6075, L3100.5440, L501.6710, L800.1280, L503.5510, L3400.3800, L101.9900, L300.3900, L803.2200, L3100.6900, L500.4100, L501.9985, L503.6550, L500.4050, L3400.0700, L3300.0100, L100.0100, L3300.1200 #### [facility] [address] [place], [address] ANTI-DNA (DS)AB 8 IU/mL Normal 0-9 [facility] Comment on above: Result Comment: Nega tive <5 Equivocal 5 - 9 Positive >9 Performed By: #### L 503.6075, L3100.5440, L501.6710, L800.1280, L503.5510, L3400.3800, L101.9900, L300.3900, L803.2200, L3100.6900, L500.4100, L501.9985, L503.6550, L500.4050, L3400.0700, L3300.0100, L100.0100, L3300.1200 #### [facility] [address] [facility] [place], [address] Anti-Mitochondrial ABon - ANTIMITOCHON AB <20.0 Normal 0.0-20.0 [facility] Comment on above: Result Comment: Nega tive 0.0 - 20.0 Equivocal 20.1 - 24.9 Positive >24.9 Mitochondrial (M2) Antibodies are found in 90-96% of patients with primary biliary cirrhosis. Performed at: [address] [id number] Farm Implement Mechanic: Demetrius Ashraf PhD, Phone: [phone] Performed By: #### L 503.6075, L3100.5440, L501.6710, L800.1280, L503.5510, L3400.3800, L101.9900, L300.3900, L803.2200, L3100.6900, L500.4100, L501.9985, L503.6550, L500.4050, L3400.0700, L3300.0100, L100.0100, L3300.1200 #### [facility] [address] [place], [place], [id number] Ammoniaon 06-12-2024 Ammonia (P) [Moles/Vol] 19.0 umol/L Normal 11-32 [facility] Comment on above: Performed By: #### L 503.6075, L3100.5440, L501.6710, L800.1280, L503.5510, L3400.3800, L101.9900, L300.3900, L803.2200, L3100.6900, L500.4100, L501.9985, L503.6550, L500.4050, L3400.0700, L3300.0100, L100.0100, L3300.1200 #### [facility] [address] [place], [address] CBC W/Diff, Automatedon 05-25 Absolute Lymph 0.90 X10 3/uL Normal 0.83-4.51 [facility] Comment on above: Performed By: #### L 503.6075, L3100.5440, L501.6710, L800.1280, L503.5510, L3400.3800, L101.9900, L300.3900, L803.2200, L3100.6900, L500.4100, L501.9985, L503.6550, L500.4050, L3400.0700, L3300.0100, L100.0100, L3300.1200 #### [facility] [address] [place], [address] Absolute Neut 5.4 X10 3/uL Normal 2.0-7.7 [facility] Comment on above: Performed By: #### L 503.6075, L3100.5440, L501.6710, L800.1280, L503.5510, L3400.3800, L101.9900, L300.3900, L803.2200, L3100.6900, L500.4100, L501.9985, L503.6550, L500.4050, L3400.0700, L3300.0100, L100.0100, L3300.1200 #### [facility] [address] [facility] [place], [address] Basophils/100 WBC (Bld) 1.5 % High 0-1 [facility] Comment on above: Performed By: #### L 503.6075, L3100.5440, L501.6710, L800.1280, L503.5510, L3400.3800, L101.9900, L300.3900, L803.2200, L3100.6900, L500.4100, L501.9985, L503.6550, L500.4050, L3400.0700, L3300.0100, L100.0100, L3300.1200 #### [facility] [address] [facility] [place], [address] Eosinophils/100 WBC (Bld) 2.7 % Normal 0-5 [facility] Comment on above: Performed By: #### L 503.6075, L3100.5440, L501.6710, L800.1280, L503.5510, L3400.3800, L101.9900, L300.3900, L803.2200, L3100.6900, L500.4100, L501.9985, L503.6550, L500.4050, L3400.0700, L3300.0100, L100.0100, L3300.1200 #### [facility] [address] [facility] [place], [place], [id number] (874) Erythrocyte distribution width (RBC) [Ratio] 14.9 % High 11.6-14.6 [facility] Comment on above: Performed By: #### L 503.6075, L3100.5440, L501.6710, L800.1280, L503.5510, L3400.3800, L101.9900, L300.3900, L803.2200, L3100.6900, L500.4100, L501.9985, L503.6550, L500.4050, L3400.0700, L3300.0100, L100.0100, L3300.1200 #### [facility] [address] [place], [place], [id number] Hematocrit (Bld) [Volume fraction] 46.4 % Normal 37-47 [facility] Comment on above: Performed By: #### L 503.6075, L3100.5440, L501.6710, L800.1280, L503.5510, L3400.3800, L101.9900, L300.3900, L803.2200, L3100.6900, L500.4100, L501.9985, L503.6550, L500.4050, L3400.0700, L3300.0100, L100.0100, L3300.1200 #### [facility] [address] [place], [place], [id number] Hemoglobin (Bld) [Mass/Vol] 14.9 g/dL Normal 12.0-15.0 [facility] Comment on above: Performed By: #### L 503.6075, L3100.5440, L501.6710, L800.1280, L503.5510, L3400.3800, L101.9900, L300.3900, L803.2200, L3100.6900, L500.4100, L501.9985, L503.6550, L500.4050, L3400.0700, L3300.0100, L100.0100, L3300.1200 #### [facility] [address] [place], [place], [id number] IG% 0.500 Normal 0.0-0.9 [facility] Comment on above: Result Comment: IG% - Immature Granulocytes (promyelocytes, myelocytes and metamyelocytes) > 1% indicates that a LEFT SHIFT is Present. Performed By: #### L 503.6075, L3100.5440, L501.6710, L800.1280, L503.5510, L3400.3800, L101.9900, L300.3900, L803.2200, L3100.6900, L500.4100, L501.9985, L503.6550, L500.4050, L3400.0700, L3300.0100, L100.0100, L3300.1200 #### [facility] [address] [facility] [place], [place], [id number] Lymphocytes/100 WBC (Bld) 12.0 % Low 19-41 [facility] Comment on above: Performed By: #### L 503.6075, L3100.5440, L501.6710, L800.1280, L503.5510, L3400.3800, L101.9900, L300.3900, L803.2200, L3100.6900, L500.4100, L501.9985, L503.6550, L500.4050, L3400.0700, L3300.0100, L100.0100, L3300.1200 #### [facility] [address] [place], [place], [id number] [phone] MCH (RBC) [Entitic mass] 26.9 pg Low 27.0-32.0 [facility] Comment on above: Performed By: #### L 503.6075, L3100.5440, L501.6710, L800.1280, L503.5510, L3400.3800, L101.9900, L300.3900, L803.2200, L3100.6900, L500.4100, L501.9985, L503.6550, L500.4050, L3400.0700, L3300.0100, L100.0100, L3300.1200 #### [facility] [address] [place], [address] MCHC (RBC) [Mass/Vol] 32.1 g/dL Normal 32-36 [facility] Comment on above: Performed By: #### L 503.6075, L3100.5440, L501.6710, L800.1280, L503.5510, L3400.3800, L101.9900, L300.3900, L803.2200, L3100.6900, L500.4100, L501.9985, L503.6550, L500.4050, L3400.0700, L3300.0100, L100.0100, L3300.1200 #### [facility] [address] [place], [place], [id number] (366) MCV (RBC) [Entitic vol] 83.9 fL Normal 81-99 [facility] Comment on above: Performed By: #### L 503.6075, L3100.5440, L501.6710, L800.1280, L503.5510, L3400.3800, L101.9900, L300.3900, L803.2200, L3100.6900, L500.4100, L501.9985, L503.6550, L500.4050, L3400.0700, L3300.0100, L100.0100, L3300.1200 #### [facility] [address] [place], [address] Monocytes/100 WBC (Bld) 11.7 % High 0-10 [facility] Comment on above: Performed By: #### L 503.6075, L3100.5440, L501.6710, L800.1280, L503.5510, L3400.3800, L101.9900, L300.3900, L803.2200, L3100.6900, L500.4100, L501.9985, L503.6550, L500.4050, L3400.0700, L3300.0100, L100.0100, L3300.1200 #### [facility] [address] [place], [address] Neutrophils/100 WBC (Bld) 71.6 % High 47-70 [facility] Comment on above: Performed By: #### L 503.6075, L3100.5440, L501.6710, L800.1280, L503.5510, L3400.3800, L101.9900, L300.3900, L803.2200, L3100.6900, L500.4100, L501.9985, L503.6550, L500.4050, L3400.0700, L3300.0100, L100.0100, L3300.1200 #### [facility] [address] [place], [address] Nucleated RBC (Bld) [#/Vol] 0 10*3/uL Normal 0-5 [facility] Comment on above: Performed By: #### L 503.6075, L3100.5440, L501.6710, L800.1280, L503.5510, L3400.3800, L101.9900, L300.3900, L803.2200, L3100.6900, L500.4100, L501.9985, L503.6550, L500.4050, L3400.0700, L3300.0100, L100.0100, L3300.1200 #### [facility] [address] [place], [address] Platelet mean volume (Bld) [Entitic vol] 12.1 fL High 6.2-12.0 [facility] Comment on above: Performed By: #### L 503.6075, L3100.5440, L501.6710, L800.1280, L503.5510, L3400.3800, L101.9900, L300.3900, L803.2200, L3100.6900, L500.4100, L501.9985, L503.6550, L500.4050, L3400.0700, L3300.0100, L100.0100, L3300.1200 #### [facility] [address] [place], [place], [phone] (513) Platelets (Bld) [#/Vol] 271 10*3/uL Normal 150-450 [facility] Comment on above: Performed By: #### L 503.6075, L3100.5440, L501.6710, L800.1280, L503.5510, L3400.3800, L101.9900, L300.3900, L803.2200, L3100.6900, L500.4100, L501.9985, L503.6550, L500.4050, L3400.0700, L3300.0100, L100.0100, L3300.1200 #### [facility] [address] [facility] [place], [place], [id number] (494) RBC (Bld) [#/Vol] 5.53 10*6/uL High 4.2-5.4 [facility] Comment on above: Performed By: #### L 503.6075, L3100.5440, L501.6710, L800.1280, L503.5510, L3400.3800, L101.9900, L300.3900, L803.2200, L3100.6900, L500.4100, L501.9985, L503.6550, L500.4050, L3400.0700, L3300.0100, L100.0100, L3300.1200 #### [facility] [address] [facility] [place], [place], [id number] (757) RDW SD 45.0 fl High 35.1-43.9 [facility] Comment on above: Performed By: #### L 503.6075, L3100.5440, L501.6710, L800.1280, L503.5510, L3400.3800, L101.9900, L300.3900, L803.2200, L3100.6900, L500.4100, L501.9985, L503.6550, L500.4050, L3400.0700, L3300.0100, L100.0100, L3300.1200 #### [facility] [address] [place], [place], [id number] WBC (Bld) [#/Vol] 7.5 10*3/uL Normal 4.4-11.0 [facility] Comment on above: Performed By: #### L 503.6075, L3100.5440, L501.6710, L800.1280, L503.5510, L3400.3800, L101.9900, L300.3900, L803.2200, L3100.6900, L500.4100, L501.9985, L503.6550, L500.4050, L3400.0700, L3300.0100, L100.0100, L3300.1200 #### [facility] [address] [place], [place], [id number] CRPon 06-12-2024 C-REACTIVE PROT < 2.90 Normal 0.0-3.0 [facility] Comment on above: Result Comment: C-Re active Protein (CRP) provides useful information for the diagnosis, therapy and monitoring of inflammatory processes and associated diseases. For the evaluation of Relative Risk for Cardiovascular Disease, a High Sensitivity CRP (HSCRP) should be ordered. Performed By: #### L 503.6075, L3100.5440, L501.6710, L800.1280, L503.5510, L3400.3800, L101.9900, L300.3900, L803.2200, L3100.6900, L500.4100, L501.9985, L503.6550, L500.4050, L3400.0700, L3300.0100, L100.0100, L3300.1200 #### [facility] [address] [place], [place], [id number] Comprehensive Metabolic Prof ilon 06-12-2024 Albumin [Mass/Vol] 3.4 g/dL Normal 3.2-5.0 [facility] Comment on above: Performed By: #### L 503.6075, L3100.5440, L501.6710, L800.1280, L503.5510, L3400.3800, L101.9900, L300.3900, L803.2200, L3100.6900, L500.4100, L501.9985, L503.6550, L500.4050, L3400.0700, L3300.0100, L100.0100, L3300.1200 #### [facility] [address] [place], [address] Albumin/Globulin [Mass ratio] 0.8 {ratio} Low 0.9-2.4 [facility] Comment on above: Performed By: #### L 503.6075, L3100.5440, L501.6710, L800.1280, L503.5510, L3400.3800, L101.9900, L300.3900, L803.2200, L3100.6900, L500.4100, L501.9985, L503.6550, L500.4050, L3400.0700, L3300.0100, L100.0100, L3300.1200 #### [facility] [address] [place], [place], [id number] ALK P 116 U/L Normal 45-117 [facility] Comment on above: Performed By: #### L 503.6075, L3100.5440, L501.6710, L800.1280, L503.5510, L3400.3800, L101.9900, L300.3900, L803.2200, L3100.6900, L500.4100, L501.9985, L503.6550, L500.4050, L3400.0700, L3300.0100, L100.0100, L3300.1200 #### [facility] [address] [place], [address] ALT [Catalytic activity/Vol] 44 U/L Normal 13-56 [facility] Comment on above: Performed By: #### L 503.6075, L3100.5440, L501.6710, L800.1280, L503.5510, L3400.3800, L101.9900, L300.3900, L803.2200, L3100.6900, L500.4100, L501.9985, L503.6550, L500.4050, L3400.0700, L3300.0100, L100.0100, L3300.1200 #### [facility] [address] [place], [address] AST [Catalytic activity/Vol] 37 U/L Normal 15-37 [facility] Comment on above: Performed By: #### L 503.6075, L3100.5440, L501.6710, L800.1280, L503.5510, L3400.3800, L101.9900, L300.3900, L803.2200, L3100.6900, L500.4100, L501.9985, L503.6550, L500.4050, L3400.0700, L3300.0100, L100.0100, L3300.1200 #### [facility] [address] [facility] [place], [address] Bilirubin [Mass/Vol] 0.70 mg/dL Normal 0.20-1.00 [facility] Comment on above: Result Comment: For patients on eltrombopag therapy, use of Dimension [place] TBIL is not recommended. Performed By: #### L 503.6075, L3100.5440, L501.6710, L800.1280, L503.5510, L3400.3800, L101.9900, L300.3900, L803.2200, L3100.6900, L500.4100, L501.9985, L503.6550, L500.4050, L3400.0700, L3300.0100, L100.0100, L3300.1200 #### [facility] [address] [place], [place], [id number] (277) BUN/CRE 11.4 RATIO Normal 10-20 [facility] Comment on above: Performed By: #### L 503.6075, L3100.5440, L501.6710, L800.1280, L503.5510, L3400.3800, L101.9900, L300.3900, L803.2200, L3100.6900, L500.4100, L501.9985, L503.6550, L500.4050, L3400.0700, L3300.0100, L100.0100, L3300.1200 #### [facility] [address] [place], [place], [id number] (007) CA,Total 9.2 mg/dL Normal 8.5-10.1 [facility] Comment on above: Performed By: #### L 503.6075, L3100.5440, L501.6710, L800.1280, L503.5510, L3400.3800, L101.9900, L300.3900, L803.2200, L3100.6900, L500.4100, L501.9985, L503.6550, L500.4050, L3400.0700, L3300.0100, L100.0100, L3300.1200 #### [facility] [address] [place], [place], [id number] (476) Chloride [Moles/Vol] 107 mmol/L Normal 98-107 [facility] Comment on above: Performed By: #### L 503.6075, L3100.5440, L501.6710, L800.1280, L503.5510, L3400.3800, L101.9900, L300.3900, L803.2200, L3100.6900, L500.4100, L501.9985, L503.6550, L500.4050, L3400.0700, L3300.0100, L100.0100, L3300.1200 #### [facility] [address] [place], [address] CO2 [Moles/Vol] 24.0 mmol/L Normal 21.0-32.0 [facility] Comment on above: Performed By: #### L 503.6075, L3100.5440, L501.6710, L800.1280, L503.5510, L3400.3800, L101.9900, L300.3900, L803.2200, L3100.6900, L500.4100, L501.9985, L503.6550, L500.4050, L3400.0700, L3300.0100, L100.0100, L3300.1200 #### [facility] [address] [facility] [place], [address] Creatinine [Mass/Vol] 0.96 mg/dL Normal 0.55-1.02 [facility] Comment on above: Result Comment: The validity of the calculated GFR GFRAA in patients over 70 years has not been determined. Clinical correlation is essential. Performed By: #### L 503.6075, L3100.5440, L501.6710, L800.1280, L503.5510, L3400.3800, L101.9900, L300.3900, L803.2200, L3100.6900, L500.4100, L501.9985, L503.6550, L500.4050, L3400.0700, L3300.0100, L100.0100, L3300.1200 #### [facility] [address] [place], [address] EST GFR - AA 72 mL/min Normal >60 [facility] Comment on above: Result Comment: Afri can [place] GFR Calc Performed By: #### L 503.6075, L3100.5440, L501.6710, L800.1280, L503.5510, L3400.3800, L101.9900, L300.3900, L803.2200, L3100.6900, L500.4100, L501.9985, L503.6550, L500.4050, L3400.0700, L3300.0100, L100.0100, L3300.1200 #### [facility] [address] [place], [place], [phone] (477) GAP 6 Normal 5-15 [facility] Comment on above: Performed By: #### L 503.6075, L3100.5440, L501.6710, L800.1280, L503.5510, L3400.3800, L101.9900, L300.3900, L803.2200, L3100.6900, L500.4100, L501.9985, L503.6550, L500.4050, L3400.0700, L3300.0100, L100.0100, L3300.1200 #### [facility] [address] [place], [address] GFR/1.73 sq M.predicted among non-blacks MDRD (S/P/Bld) [Vol rate/Area] 60 mL/min/{1.73_m2} Normal >60 [facility] Comment on above: Result Comment: Non- GFR Calc Performed By: #### L 503.6075, L3100.5440, L501.6710, L800.1280, L503.5510, L3400.3800, L101.9900, L300.3900, L803.2200, L3100.6900, L500.4100, L501.9985, L503.6550, L500.4050, L3400.0700, L3300.0100, L100.0100, L3300.1200 #### [facility] [address] [place], [address] (241) Globulin (S) [Mass/Vol] 4.5 g/dL High 2.2-4.2 [facility] Comment on above: Performed By: #### L 503.6075, L3100.5440, L501.6710, L800.1280, L503.5510, L3400.3800, L101.9900, L300.3900, L803.2200, L3100.6900, L500.4100, L501.9985, L503.6550, L500.4050, L3400.0700, L3300.0100, L100.0100, L3300.1200 #### [facility] [address] [place], [address] Glucose [Mass/Vol] 112 mg/dL High 74-106 [facility] Comment on above: Result Comment: Fast ing Glucose result from 100 to 125 mg/dL suggests IMPAIRED HOMEOSTASIS per A.D.A. criteria. Performed By: #### L 503.6075, L3100.5440, L501.6710, L800.1280, L503.5510, L3400.3800, L101.9900, L300.3900, L803.2200, L3100.6900, L500.4100, L501.9985, L503.6550, L500.4050, L3400.0700, L3300.0100, L100.0100, L3300.1200 #### [facility] [address] [place], [address] Potassium [Moles/Vol] 4.4 mmol/L Normal 3.5-5.1 [facility] Comment on above: Performed By: #### L 503.6075, L3100.5440, L501.6710, L800.1280, L503.5510, L3400.3800, L101.9900, L300.3900, L803.2200, L3100.6900, L500.4100, L501.9985, L503.6550, L500.4050, L3400.0700, L3300.0100, L100.0100, L3300.1200 #### [facility] [address], [address] Sodium [Moles/Vol] 137 mmol/L Normal 136-145 [facility] Comment on above: Performed By: #### L 503.6075, L3100.5440, L501.6710, L800.1280, L503.5510, L3400.3800, L101.9900, L300.3900, L803.2200, L3100.6900, L500.4100, L501.9985, L503.6550, L500.4050, L3400.0700, L3300.0100, L100.0100, L3300.1200 #### [facility] [address] [facility] [place], [place], [phone] (277) T PROT 7.9 g/dL Normal 6.4-8.2 [facility] Comment on above: Performed By: #### L 503.6075, L3100.5440, L501.6710, L800.1280, L503.5510, L3400.3800, L101.9900, L300.3900, L803.2200, L3100.6900, L500.4100, L501.9985, L503.6550, L500.4050, L3400.0700, L3300.0100, L100.0100, L3300.1200 #### [facility] [address] [facility] [place], [place], [id number] Urea nitrogen [Mass/Vol] 11 mg/dL Normal 7-18 [facility] Comment on above: Performed By: #### L 503.6075, L3100.5440, L501.6710, L800.1280, L503.5510, L3400.3800, L101.9900, L300.3900, L803.2200, L3100.6900, L500.4100, L501.9985, L503.6550, L500.4050, L3400.0700, L3300.0100, L100.0100, L3300.1200 #### [facility] [address] [place], [place], [id number] Erythrocyte Sed Rateon 06-12 SED RATE 30 mm/hr Normal 0-30 [facility] Comment on above: Performed By: #### L 503.6075, L3100.5440, L501.6710, L800.1280, L503.5510, L3400.3800, L101.9900, L300.3900, L803.2200, L3100.6900, L500.4100, L501.9985, L503.6550, L500.4050, L3400.0700, L3300.0100, L100.0100, L3300.1200 #### [facility] [address] [place], [place], [id number] Ferritinon 06-12-2024 Ferritin [Mass/Vol] 32 ng/mL Normal 8-252 [facility] Comment on above: Performed By: #### L 503.6075, L3100.5440, L501.6710, L800.1280, L503.5510, L3400.3800, L101.9900, L300.3900, L803.2200, L3100.6900, L500.4100, L501.9985, L503.6550, L500.4050, L3400.0700, L3300.0100, L100.0100, L3300.1200 #### [facility] [address] [place], [place], [id number] Hemoglobin A1con 06-12-2024 HbA1c (Bld) [Mass fraction] 5.9 % High 3.8-5.6 [facility] Comment on above: Result Comment: Norm al < 5.7 % Prediabetic 5.7 - 6.4 % Diabetic >or= 6.5 % Please note range changes. Performed By: #### L 503.6075, L3100.5440, L501.6710, L800.1280, L503.5510, L3400.3800, L101.9900, L300.3900, L803.2200, L3100.6900, L500.4100, L501.9985, L503.6550, L500.4050, L3400.0700, L3300.0100, L100.0100, L3300.1200 #### [facility] [address] [place], [place], [id number] (426) Iron Binding Capacity,Totalo n 06-12-2024 TIBC 390 ug/dL Normal 250-450 [facility] Comment on above: Performed By: #### L 503.6075, L3100.5440, L501.6710, L800.1280, L503.5510, L3400.3800, L101.9900, L300.3900, L803.2200, L3100.6900, L500.4100, L501.9985, L503.6550, L500.4050, L3400.0700, L3300.0100, L100.0100, L3300.1200 #### [facility] [address] [facility] [place], [address] Lipid Profileon 06-12-2024 Cholesterol [Mass/Vol] 148 mg/dL Normal 200 [facility] Comment on above: Result Comment: <200 mg/dL Desirable 200-240 mg/dL Borderline >240 mg/dL High Risk Performed By: #### L 503.6075, L3100.5440, L501.6710, L800.1280, L503.5510, L3400.3800, L101.9900, L300.3900, L803.2200, L3100.6900, L500.4100, L501.9985, L503.6550, L500.4050, L3400.0700, L3300.0100, L100.0100, L3300.1200 #### [facility] [address] [facility] [place], [place], [address] Cholesterol in HDL [Mass/Vol] 64 mg/dL Normal [facility] Comment on above: Result Comment: The drugs N-Acetylcysteine and Metamizole may falsely depress this assay. Reference Range HDL <40 mg/dL Low HDL Cholesterol HDL >or= 60 mg/dL High HDL Cholesterol Performed By: #### L 503.6075, L3100.5440, L501.6710, L800.1280, L503.5510, L3400.3800, L101.9900, L300.3900, L803.2200, L3100.6900, L500.4100, L501.9985, L503.6550, L500.4050, L3400.0700, L3300.0100, L100.0100, L3300.1200 #### [facility] [address] [place], [address] (556) Cholesterol in LDL [Mass/Vol] 63 mg/dL Normal 0-130 [facility] Comment on above: Performed By: #### L 503.6075, L3100.5440, L501.6710, L800.1280, L503.5510, L3400.3800, L101.9900, L300.3900, L803.2200, L3100.6900, L500.4100, L501.9985, L503.6550, L500.4050, L3400.0700, L3300.0100, L100.0100, L3300.1200 #### [facility] [address] [facility] [place], [address] (915) Cholesterol in VLDL [Mass/Vol] 21 mg/dL Normal 5-40 [facility] Comment on above: Performed By: #### L 503.6075, L3100.5440, L501.6710, L800.1280, L503.5510, L3400.3800, L101.9900, L300.3900, L803.2200, L3100.6900, L500.4100, L501.9985, L503.6550, L500.4050, L3400.0700, L3300.0100, L100.0100, L3300.1200 #### [facility] [address] [place], [place], [id number] Triglyceride [Mass/Vol] 107 mg/dL Normal [facility] Comment on above: Result Comment: The drugs N-Acetylcysteine and Metamizole may falsely depress this assay. Serum Triglycerides Reference Interval Normal <150 mg/dL Borderline high 150 - 199 mg/dL High 200 - 499 mg/dL Very High > or = 500 mg/dL Performed By: #### L 503.6075, L3100.5440, L501.6710, L800.1280, L503.5510, L3400.3800, L101.9900, L300.3900, L803.2200, L3100.6900, L500.4100, L501.9985, L503.6550, L500.4050, L3400.0700, L3300.0100, L100.0100, L3300.1200 #### [facility] [address] [place], [address] Prothrombin Time w/INRon INR Coag (PPP) [Relative time] 1.0 {INR} Normal [facility] Comment on above: Performed By: #### L 503.6075, L3100.5440, L501.6710, L800.1280, L503.5510, L3400.3800, L101.9900, L300.3900, L803.2200, L3100.6900, L500.4100, L501.9985, L503.6550, L500.4050, L3400.0700, L3300.0100, L100.0100, L3300.1200 #### [facility] [address] [place], [place], [id number] PT Coag (PPP) [Time] 13.5 s Normal 11.7-14.9 [facility] Comment on above: Performed By: #### L 503.6075, L3100.5440, L501.6710, L800.1280, L503.5510, L3400.3800, L101.9900, L300.3900, L803.2200, L3100.6900, L500.4100, L501.9985, L503.6550, L500.4050, L3400.0700, L3300.0100, L100.0100, L3300.1200 #### [facility] [address] [place], [place], [id number] Gastroenterology Visit Repor ton 05-31-2024 Gastroenterology Visit Report [facility] [address] [place] [address] OFFICE VISIT Date of Service: 05/31/24 MR#: [id number] Acct: [id number] Name: LAVELLE RUEDA Rep #: [id number] : 1945 Provider: JUDY Neal Age/Sex: 78/F Location[place] [facility] [place] Status: Signed Intake Vital Signs 07/01/23 13:05 03/20/24 13:58 Height 5 ft 6 in 5 ft 6 in Intake Visit Reasons: 6 month f/u Chief Complaint: fatty liver Allergies lisinopril Adverse Reaction (Intermediate, Verified 03/20/24 13:59) cough Have you fallen in the past year?: No Nurse's Note: OV 05.31.24 Pt here for f/u. Pt states she is feeling good since her last visit. She did report she has fatty liver but otherwise no issues. [facility] Medical History Abnormal finding on thyroid function test Depression Hyperthyroidism GERD (gastroesophageal reflux disease) Myocardial infarct Hypertension Stroke/cerebrovascular accident Dementia TIA (transient ischemic attack) Fracture of pubic ramus Colitis Edema Chronic cough PND (paroxysmal nocturnal dyspnea) Postoperative atrial fibrillation (11/06/20) Atherosclerotic heart disease of [place] coronary artery without angina pectoris History of non-ST elevation myocardial infarction (NSTEMI) (01/02/21) Anxiety Heme positive stool Anxiety and depression Iron deficiency anemia Pleural effusion, left Pleuritis Community acquired pneumonia Osteoarthritis Atherosclerosis of coronary artery of [place] heart without angina pectoris Essential (primary) hypertension HLD (hyperlipidemia) Surgical History H/O coronary artery bypass surgery (11/04/20) History of repair of retinal tear by laser photocoagulation History of left heart catheterization (10/30/20) History of coronary artery stent placement (03/22/06) Hx of appendectomy Family History (Updated 03/20/24 @ 14:[address] Agatha Matthews MD) Father Rheumatoid arthritis Mother CHF (congestive heart failure) Brother Age: 80 High cholesterol Uncle Heart disease Social History (Updated 03/20/24 @ 14:[address] 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 [facility] hospitalization 05.22.22-06.02.22. [facility] ED presentation following neurologist OV with abdominal pain and nausea for 3 weeks. Neurology established for periods of unresponsiveness seizure versus stroke. ED workup noted abdominal tenderness with guarding, elevated WBC (13.4) and abnormal CT scan and she was admitted. During admission she was treated for colitis with Cipro and flagyl which was helpful. Initially attempted placement for ECF but this was denied and discharged home. CT abd/pel 05.22.22 low attenuation of pancreatic head 1.4x1.3cm without inflammatory stranding, ?organizing collection versus malignancy; colonic trace indistinctness and inflammatory pericolonic stranding of descending colon; subacute fracture of left pubic ramus with mild bridging callus, new. CT abd 05.23.22 decreased attenuation of pancreatic head as previously noted; bowel unremarkable; bilateral renal structures, too small to characterize though unlikely simple cysts. PCP OV 06.23.22 for hospitalization f/u. Feeling much better since discharge with resolution of symptoms from hospitalization. Recommend CT scan. ? Biochemical 3 CMP, B12 without pertinent abnormality CT abd/pel 08.04.22 normal pancreas; hyperdensities in stomach, likely ingested medication; nondistended contrast filled small and large bowel loops suggest diffuse enteritis without acute inflammatory process. *BGI established 08.28.22 with minimal abdominal pain without N/V. ? Biochemical GGT, LDH, CRP, amylase, lipase, JEET, CA19-9, TSH, GAME, IgG subclasses, ALF, DEVON comp, celiac, C3, C4, total complement without pertinent abnormality. ? A1c H5.7, pANCA H1:320 ? MRCP 09.09.22 No acute/chronic abnormality noted. Pancreas evaluation limited. Contact 09.08.22 with bloodwork update. ? Biochemical IBD, PR3 without pertinent abnormality. MPO [id number] Contact 09.14.22 Refer to [facility]. OV 12.30.22 Reports she is doing very well at this time. Reports she was seen by rheumatol (more content not included)... Normal [facility] CNOVon 03-26-2024 CNOV Office Visit ([facility] ) -------- LAVELLE RUEDA ([id number]) 1945 F Date Time Provider Department 03/26/24 2:00 PM BENITA LIMA [facility] During your visit today, we recorded the following information about you: Temperature Pulse Respiration Blood pressure 98.1 degrees 98/minute 16/minute 142/94 Weight 80.4 kg Benita Lima APRN.CNP 03/26/2024 2:22 PM Signed This note was created using NoteWriter. Subjective Lavelle Rueda is a 78 year old female. HPI pt states that the rash, burning and itching under both breast started about 5 days ago is just getting worse. She has been using Vaseline to the area. Review of Systems Skin: Positive for rash. Objective BP 142/94 Pulse 98 Temp 36.7 ?C (98.1 ?F) Resp 16 Wt 80.4 kg (177 lb 4 oz) SpO2 96% BMI 28.61 kg/m? Physical Exam Chest: Comments: Bright red rash with superficial breaks in the skin Assessment and Plan ASSESSMENT/PLAN: 1. Skin yeast infection - ICD9: 112.3, ICD10: B37.2 Lotrisone cream x 7 days Nystatin power as needed Benita Lima APRN.CNP Medical Decision Making: Problems: Low: Acute, uncomplicated illness or injury Risk: Moderate: Drug management Medical Decision Making Level: 3 - Low Allergies As of Date: 03/26/2024 Noted Allergy Reaction AZITHROMYCIN 11/27/2002 8 - GI Upset Comments: Severe stomach discomfort ARTIFICIAL PLASTICIZER 04/02/2017 8 - GI Upset Comments: additives, fillers, thickeners, colors etc FOOD SUPPLEMT, LACTOSE-REDUCED 03/11/2015 8 - GI Upset Comments: Ingredients in additives IODINE (CONTRAST DYE) 04/14/2006 14 - Other: See Comments Comments: calling pt LACTOSE 12/03/2011 6 - Diarrhea 8 - GI Upset LIPITOR (ATORVASTATIN CALCIUM) 05/20/2006 8 - GI Upset Comments: bowel problems LISINOPRIL 06/21/2007 Comments: gi upset SOY 04/02/2017 8 - GI Upset VALIUM (DIAZEPAM) 05/30/2012 1 - Mental Status Change Comments: Nightmares. Would not want to take this again. Noted years ago, never charted, never mentioned Date Reviewed: 03/26/2024 Reviewed by: Trena Dacosta MA - Fully Assessed Reason for Visit: Rash [1087] Cmt: under bilateral breast, burning and itching x 5 days Primary Visit Diagnosis:Skin yeast infection [B37.2] Order(s):clotrimazole-be tamethasone (LOTRISONE) creamApply to affected area two times a day.Disp: 45 gRfl: 1 nystatin 1 billion unit powd1 Application four times a day as needed.Disp: 1 EachRfl: 2 Prescriptions as of 03/26/2024 - clotrimazole-betamethaso ne (LOTRISONE) cream Apply to affected area two times a day. - nystatin 1 billion unit powd 1 Application four times a day as needed. - atorvastatin (LIPITOR) 20 mg tablet Take 4 tablets by mouth daily at bedtime. For cholesterol. - nortriptyline (PAMELOR) 25 mg capsule Take 1 capsule by mouth daily at bedtime. - pantoprazole DR (PROTONIX) 20 mg tablet Take 1 tablet by mouth once daily. - benzonatate (TESSALON PERLE) 100 mg capsule Take 1 capsule by mouth three times a day as needed for cough. - memantine (NAMENDA) 10 mg tablet Take 10 mg by mouth two times a day. - alendronate (FOSAMAX) 70 mg tablet Take 1 tablet by mouth one time a week. Take with a full glass of water, on an empty stomach; do NOT lie down for 30minutes. - levothyroxine (SYNTHROID) 25 mcg tablet Take 1 tablet by mouth once daily. Take on empty stomach. For thyroid. - escitalopram oxalate (LEXAPRO) 10 mg tablet Take 1 tablet by mouth once daily. - cholecalciferol (VITAMIN D3) 1,000 unit tab tablet Take 5 tablets by mouth once daily. - clopidogrel (PLAVIX) 75 mg tablet Take 1 tablet by mouth once daily. ([facility]) - triamcinolone acetonide (NASACORT) 55 mcg nasal inhaler Use 2 Sprays in the nose once daily as needed. For nasal congestion - potassium chloride (K-TAB) 10 mEq tablet Take 2 tablets by mouth twice daily. ([facility]; needs 10meq; 20 meq too large) - ondansetron orally disintegrating (ZOFRAN ODT) 4 mg disintegrating tablet Take 1 tablet by mouth every 6 hours as needed for nausea/vomiting. - cyanocobalamin (VITAMIN B-12) 1,000 mcg tab Take 1,000 mcg by mouth. - metoprolol succinate ER (TOPROL XL) 50 mg 24 hr tablet Take 25 mg by mouth once daily. - nitroglycerin sublingual (NITROQUICK) 0.4 mg SL tablet Dissolve 1 tablet under the tongue every 5 minutes as needed. - furosemide (LASIX) 40 mg tablet Take 1 tablet by mouth twice daily. (per cardiology) - aspirin, enteric coated (ASPIRIN, ENTERIC COATED) 81 mg EC tablet Take 1 tablet by mouth once daily. Problem List As Of Date 03/26/2024 Noted Resolved Disorder of bone and cartilage, unspecified [M8* 06/12/2015 Essential hypertension [I10] Anxiety state [F41.1] Depression [F32.A] GENERAL OSTEOARTHROSIS [M15.9] Pure hypercholesterolemia [E78.00] 10/31/2007 Coronary atherosclerosis of unspecified type of*10/31/200701/19 (more content not included)... Normal [facility] CNOVon 12-17-2023 CNOV Office Visit (INTMWS ) -------- LAVELLE RUEDA ([id number]) 1945 F Date Time Provider Department 12/17/23 3:40 PM JD BARGER INTMWS During your visit today, we recorded the following information about you: Temperature Pulse Respiration Blood pressure 99.1 degrees 77/minute 18/minute 124/82 Weight 78 kg Jd Barger MD 01/27/2024 10:51 PM Signed This note was created using ?riter. Subjective Lavelle Rueda is a 78 year old female. Patient presents with: F/U 6 months: Labs prior SUBJECTIVE: Lavelle Rueda is a 78 year old year old lady here today for 6 month follow up appointment for review of medical conditions. Jinny Orellana present. Limited vision in left field of vision so not able to drive. Treated for UTI in case while at ER 12/01 ([facility]). 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 [facility] No apparent UTI symptoms now. Copy [facility] DPOA dropped off to scan; [facility] Nayeli Orellana as her surrogate decision maker for health issues as well [place] through [facility] comes weekly. Helping with strength and stamina,. PAST MEDICAL HISTORY Diagnosis Date Anxiety state, unspecified Coronary artery disease ASHD, sees Dr. Sanabria Depressive disorder, not elsewhere classified Disorder of bone and cartilage, unspecified Diverticulosis of colon (without mention of hemorrhage) Generalized osteoarthrosis, unspecified site Hyperlipidemia Internal hemorrhoids without mention of complication Mixed Alzheimer's and vascular dementia (HCC) noted from Dr. 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 alendronate (FOSAMAX) 70 mg tablet Take 1 tablet by mouth one time a week. Take with a full glass of water, on an empty stomach; do NOT lie down for 30minutes. pantoprazole DR (PROTONIX) 20 mg tablet Take 1 tablet by mouth once daily. levothyroxine (SYNTHROID) 25 mcg tablet Take 1 tablet by mouth once daily. Take on empty stomach. For thyroid. escitalopram oxalate (LEXAPRO) 10 mg tablet Take 1 tablet by mouth once daily. nortriptyline (PAMELOR) 25 mg capsule Take 1 capsule by mouth twice daily. (Patient taking differently: Take 25 mg by mouth daily at bedtime.) atorvastatin (LIPITOR) 20 mg tablet Take 4 tablets by mouth daily at bedtime. For cholesterol. benzonatate (TESSALON PERLE) 100 mg capsule Take 1 capsule by mouth three times daily as needed. cholecalciferol (VITAMIN D3) 1,000 unit tab tablet Take 5 tablets by mouth once daily. triamcinolone acetonide (NASACORT) 55 mcg nasal inhaler Use 2 Sprays in the nose once daily as needed. For nasal congestion potassium chloride (K-TAB) 10 mEq tablet Take 2 tablets by mouth twice daily. ([facility]; needs 10meq; 20 meq too large) ondansetron orally disintegrating (ZOFRAN ODT) 4 mg disintegrating tablet Take 1 tablet by mouth every 6 hours as needed for nausea/vomiting. cyanocobalamin (VITAMIN B-12) 1,000 mcg tab Take 1,000 mcg by mouth. metoprolol succinate ER (TOPROL XL) 50 mg 24 hr tablet Take 25 mg by mouth once daily. nitroglycerin sublingual (NITROQUICK) 0.4 mg SL tablet Dissolve 1 tablet under the tongue every 5 minutes as needed. furosemide (LASIX) 40 mg tablet Take 1 tablet by mouth twice daily. (per cardiology) (Patient taking differently: Take 40 mg by mouth once daily. (per cardiology)) aspirin, enteric coated (ASPIRIN, ENTERIC COATED) 81 mg EC tablet Take 1 tablet by mouth once daily. clopidogrel (PLAVIX) 75 mg tablet Take 1 tablet by mouth once daily. ([facility]) No current facility-administered medications for this visit. Review of Systems Objective BP 124/82 Pulse 77 Temp 37.3 ?C (99.1 ?F) Resp 18 Wt 78 kg (172 lb) SpO2 98% BMI 27.76 kg/m? Physical Exam Constitutional: Appearance: Normal appearance. HENT: Head: Normocephalic. Eyes: Conjunctiva/sclera: Conjunctivae normal. Cardiovascular: Rate and Rhythm: Normal rate and regular rhythm. Heart sounds: Normal heart sounds. Pulmonary: Effort: Pulmonary effort is normal. Breath sounds: Normal breath sounds. Skin: General: Skin is warm and dry. Neurological: General: No focal deficit present. Mental Status: She is alert and oriented to person, place, and time. Psychiatric: Attention and Perception: Attention normal. Mood and Affect: Mood normal. Speech: Speech normal. Behavior: Behavior normal. Behavior is cooperative. Cognition and Memory: Cognition is impaired. Labs done at outside hospital per provider(s) at (more content not included)... [facility] (INTMWS[facility] -------- LAVELLE RUEDA ([id number]) 1945 F Date Time Provider Department 11/30/23 JD BARGER INTMWS During your visit today, we recorded the following information about you: Hetal Quiñonez, RN 11/30/2023 1:01 PM Signed Jinny Orellana (Pt's sister in law) calling in to report information on pt. Jinny states that pt was treated for a UTI (dx on 11/20) with Cephalexin. This was from an ER visit on 11/20/23 at [facility]. Pt was in to see Dr. Heath yesterday at [facility] and they did another dip of pt's urine and told Jinny and the pt that she still had a UTI and to call PCP for antibiotic. Jinny states Dr. Heath stated that the culture was not complete yet. Called and spoke with Lavelle who gives permission to speak with Jinny. Lavelle denies having any pain, burning, urgency frequency, foul odor or blood in her urine. Per home health aide Ella, pt told her that she was having some slight burning with urination. Attempted to contact [facility] Medical records to see if a culture was done on pt's urinalysis that was done on 11/20. No answer. Also had LM at Dr. Heath's office to check on urinalysis results they did yesterday. After calling, found results scanned in under lab. Please review information and urinalysis results from yesterday at [facility]. Contact Jinny if any information needed or if antibiotic is prescribed. Uses Shyam Brian. Jd Barger MD 11/30/2023 1:25 PM Signed Urinalysis from November 28 at [facility] showed occult blood 10 and leuk esterase 500; microscopic showed 10-25 white blood cells, 0-5 red blood cells. No urine culture results found on Care Everywhere or in scanned documents. Probably not done yet since has not been 3 days. Noted that patient did not complain of symptoms of UTI when spoke to triage nurse, but the home health aide stated that she had complained of some slight burning with urination. Since no definite symptoms of UTI, would monitor symptoms and wait for urine culture results to determine whether she truly has a UTI. Note that urine studies can show increased white blood cells without a patient having an actual infection. Monitor for fevers and other symptoms of UTI. Hetal Quiñonez RN 11/30/2023 2:53 PM Signed Called and spoke with pt's sister in law Jinny and given Dr. Barger' information, instructions and recommendations. Jinny will call back if she hears the results of the urine culture from Dr. Heath's office. Will leave encounter open until we receive those results. Mary Akers LPN 12/01/2023 8:23 AM Signed Results are scanned in patients chart for review. Please advise. Hetal Quiñonez RN 12/01/2023 3:26 PM Signed Hetal Quiñonez RN 12/01/2023 5:[address] Barger notified of culture results. Attempted several times to get ahold of [facility] ER or [facility] Recs to see if a urine culture was done from the 11/20 urinalysis done in the ER as well as getting test results and information faxed to Dr. Barger. Unable to contact anyone at two med records depts with [facility]. Also spoke to someone in [facility] ER to see if she could get results-was put on hold for over 10 mins. Called [facility] and spoke to someone that said there was a urine culture result from 11/20 but she did not want to send results. [facility] with no answer and no answering machine. [facility] to [phone]. Will await records. Jd Barger MD 12/01/2023 5:47 PM Signed There was insignificant growth on the recent urine culture (less than 100,000 colony forming units)--was actually under 25,000 CFUs. Sensitive to Cipro and Bactrim. If develops symptoms of UTI, would repeat urine studies then treat as indicated on that. Noted hard time getting info from [facility] regarding urine culture results. Hetal Quiñonez RN 12/02/2023 8:17 AM Signed Called and spoke with pt's sister in law Jinny. Notified of Dr. Barger' information and recommendations. Jinny states pt does not seem to be showing any signs of a UTI at this time. Jinny instructed to notify us if pt starts c/o any burning or pain with urination, frequency, urgency or foul odor with urination. Pt was taken to the ER on 11/19 due to confusion and thought was a UTI was causing it. Jinny instructed if they note any start to that again to call and get her in for an appt and we will check a urine again at that time. Jinny verbalizes understanding. Leaving encounter open until receive urine culture results from [facility]. Hetal Quiñonez RN 12/02/2023 9:57 AM Signed Still no results or copies of records from [facility]. Attempted to call Medical records again with no success. Was able to LM on their answering machine. Left detailed msg that a Continuity of Care Medical Records Release form was faxed yesterday late in the day and marked as stat a (more content not included)... Normal [facility] metabolic 1998 panelon 11-21-2023 Albumin [Mass/Vol] 3.9 g/dL 3.5 - 5.0 g/dL [facility] ALP [Catalytic activity/Vol] 122 U/L 38 - 126 U/L [facility] ALT [Catalytic activity/Vol] 39 U/L High 0 - 34 U/L [facility] Anion gap [Moles/Vol] 8 mmol/L 3 - 13 mmol/L [facility] AST [Catalytic activity/Vol] 42 U/L 15 - 46 U/L [facility] Bilirubin [Mass/Vol] 0.5 mg/dL 0.2 - 1 .3 mg/dL [facility] Calcium [Mass/Vol] 9.3 mg/dL 8.4 - 10. 4 mg/dL [facility] Chloride [Moles/Vol] 106 mmol/L 98 - 10 7 mmol/L [facility] CO2 [Moles/Vol] 23 mmol/L 22 - 30 mmol/L [facility] Creatinine [Mass/Vol] 0.91 mg/dL 0.52 - 1.04 mg/dL [facility] GFR/1.73 sq M.predicted MDRD (S/P/Bld) [Vol rate/Area] 64.7 mL/min/{1.73_m2} - PINF [facility] Comment on above: Calculation based on the Chronic Kidney Disease Epidemiology Collaboration (CKD-EPI) equation refit without adjustment for race Glucose [Mass/Vol] 132 mg/dL High 70 - 100 mg/dL [facility] [employer] Interpretation and review of laboratory results Abnormal [facility] Potassium [Moles/Vol] 3.8 mmol/L 3.5 - 5.1 mmol/L [facility] [employer] Protein [Mass/Vol] 7.3 g/dL 6.3 - 8.2 g/dL [facility] [employer] Sodium [Moles/Vol] 137 mmol/L 135 - 145 mmol/L [facility] [employer] Urea nitrogen [Mass/Vol] 15 mg/dL 7 - 17 mg/dL [facility] [employer] Laboratory - Chemistry and C hemistry - challengeon 11-21-2023 Troponin I.cardiac [Mass/Vol] ng/mL NINF - 0.034 ng/mL [facility] No Panel InformationOrdered By: Chapin Lewis on 11-21-2023 P [place] 34 degrees [employer] Phone: [phone] MD Interval 146 ms [employer] Phone: QRS [place] -5 degrees [employer] Phone: QRSD Interval 103 ms [employer] Phone: QT Interval 438 ms [employer] Phone: QTC Interval 499 ms [employer] Phone: T Wave [place] 118 degrees [employer] Phone: [employer] Phone: No Panel Informationon 11-20 Sinus rhythm Atrial premature complex Repol abnrm suggests ischemia, lateral leads Electronically Signed On 11-21-2023 06:30:01 EDT by Chapin Lewis CV Chapin Collins MD - 11/21/2023 IMPRESSION: Sinus rhythm Atrial premature complex Repol abnrm suggests ischemia, lateral leads Electronically Signed On 11-21-2023 06:30:01 EDT by Chapin Lewis [facility] Troponin I.cardiac [Mass/Vol ]on 11-21-2023 Interpretation and review of laboratory results Normal [facility] Patients with high levels of Biotin oral intake (ie >5 mg/day) may have falsely decreased Troponin levels. [facility] Urinalysis complete panel (U )on 11-21-2023 Bacteria LM.HPF (Urine sed) [#/Area] Many Abnormal Negative /HPF [facility] Bilirubin Ql (U) Negative Negative mg/dL [facility] Clarity (U) Turbid Abnormal Clear [facility] Color (U) Light Yellow Lt. Yellow [facility] Epithelial cells.squamous LM.HPF (Urine sed) [#/Area] 6-10 Abnormal [facility] Glucose Ql (U) Normal Normal (<70) mg/dL [facility] Hemoglobin Ql (U) Negative Negative mg/dL [facility] Interpretation and review of laboratory results Abnormal [facility] Ketones (U) [Mass/Vol] Negative Negat mike mg/dL [facility] Leukocyte esterase Test strip Ql (U) 500 Abnormal Negative Monica/uL [facility] Mucus LM.HPF (Urine sed) [#/Area] Few Negative /LPF [facility] Nitrite Ql (U) Negative Negative [facility] pH (U) 5.5 [pH] 5.0 - 8.0 pH [facility] Protein (U) [Mass/Vol] Negative Negat mike mg/dL [facility] RBC LM.HPF (Urine sed) [#/Area] Negative [facility] Specific gravity (U) [Rel density] 1.014 1.005 - 1.030 [facility] Urobilinogen (U) [Mass/Vol] Normal Normal (0-1) mg/dL [facility] Volume, Urine 12 mL [facility] WBC LM.HPF (Urine sed) [#/Area] 26-50 Abnormal [facility] Vital signsOrdered By: Jocelyn Lewis on 11-21-2023 Heart rate 78 /min bpm [facility] Work Phone: XR Chest Single viewon 11-20 FINDINGS/IMPRESSION: Limitations: Positioning. Lines, tubes, and devices: None. Cardiomediastinal silhouette: Heart size is within normal limits. Postsurgical changes with overlying median sternotomy wires present. Lungs/Pleura: Streaky left basilar atelectasis. No sizable pleural effusions. No pneumothorax. Pulmonary vasculature is somewhat prominent but likely within normal limits. Osseous structures: Degenerative spondylosis in the visualized spine. Remote appearing right-sided rib fracture deformities new from prior study. Soft tissues: No soft tissue abnormality is detected. Report Dictated on Electronically Signed By: Mendel Rios MD Electronically Signed Date/Time: 11/21/2023 12:08 AM EDT [facility] EMERGENC[facility]PART[facility] RADIOLOGY SYSTEM Patient Name: LAVELLE RUEDA : 1945 Exam Date/Time: 11/21/2023 00:03 Procedure: XR CHEST 1 VIEW Ordering Provider: AKHTAR QUENTIN Reason For Exam: ALTERED MENTAL STATUS CHEST - PORTABLE: CLINICAL INDICATION: Altered mental status. TECHNIQUE: Portable AP COMPARISON: 01/15/2021. [facility] Corina Rios MD - 11/21/2023 Patient Name: LAVELLE RUEDA : 1945 Exam Date/Time: 11/21/2023 00:03 Procedure: XR CHEST 1 VIEW Ordering Provider: AKHTAR QUENTIN Reason For Exam: ALTERED MENTAL STATUS CHEST - PORTABLE: CLINICAL INDICATION: Altered mental status. TECHNIQUE: Portable AP COMPARISON: 01/15/2021. IMPRESSION: FINDINGS/IMPRESSION: Limitations: Positioning. Lines, tubes, and devices: None. Cardiomediastinal silhouette: Heart size is within normal limits. Postsurgical changes with overlying median sternotomy wires present. Lungs/Pleura: Streaky left basilar atelectasis. No sizable pleural effusions. No pneumothorax. Pulmonary vasculature is somewhat prominent but likely within normal limits. Osseous structures: Degenerative spondylosis in the visualized spine. Remote appearing right-sided rib fracture deformities new from prior study. Soft tissues: No soft tissue abnormality is detected. Report Dictated on Electronically Signed By: Mendel Rios MD Electronically Signed Date/Time: 11/21/2023 12:08 AM EDT [facility] Radiology Study observation (narrative) [facility] XR Chest Single viewOrdered By: Corina Rios on 11-21-2023 [facility] [employer] Work Phone: CBC W Auto Differential pane l (Bld)Ordered By: Elbert Carty on 11-20-2023 Basophils (Bld) [#/Vol] 0.1 10*3/uL 0.0 - 0.2 10*3/uL [facility] Basophils/100 WBC (Bld) 0.9 % 0.0 - 2.0 % [facility] [employer] Eosinophils (Bld) [#/Vol] 0.2 10*3/uL 0.0 - 0.5 10*3/uL [facility] Eosinophils/100 WBC (Bld) 1.9 % 0.0 - 6.0 % [facility] [employer] Erythrocyte distribution width (RBC) [Ratio] 14.4 % 11.5 - 15.0 % [facility] [employer] Hematocrit (Bld) [Volume fraction] 42.8 % 35.0 - 47.0 % [facility] [employer] Hemoglobin (Bld) [Mass/Vol] 13.7 g/dL 11.7 - 16.0 g/dL [facility] [employer] Immature granulocytes (Bld) [#/Vol] 0.1 10*3/uL High NINF - 0.1 10*3/uL [facility] [employer] Immature granulocytes/100 WBC (Bld) 0.6 % 0.0 - 2.0 % [facility] [employer] Interpretation and review of laboratory results Abnormal [facility] [employer] Lymphocytes (Bld) [#/Vol] 1.5 10*3/uL 1.0 - 4.3 10*3/uL [facility] [employer] Lymphocytes/100 WBC (Bld) 13.9 % Low 15.0 - 45.0 % [facility] [employer] MCH (RBC) [Entitic mass] 26.1 pg 26. 0 - 34.0 pg [facility] [employer] MCHC (RBC) [Mass/Vol] 32.0 % 30.5 - 36.0 % [facility] [employer] MCV (RBC) [Entitic vol] 81.5 fL 77.0 - 99.0 fL [facility] [employer] Monocytes (Bld) [#/Vol] 1.0 10*3/uL High 0.0 - 0.9 10*3/uL [facility] Monocytes/100 WBC (Bld) 9.8 % 5.0 - 13.0 % [facility] [employer] Neutrophils (Bld) [#/Vol] 7.7 10*3/uL High 1.8 - 7.5 10*3/uL [facility] Neutrophils/100 WBC (Bld) 72.9 % 38.0 - 82.0 % [facility] Nucleated RBC/100 WBC (Bld) [Ratio] 0.0 % [facility] Platelet mean volume (Bld) [Entitic vol] 11.1 fL 9.0 - 12.7 fL [facility] Comment on above: MPV is a calculated measurement using platelet volume ratio Platelets (Bld) [#/Vol] 268 10*3/uL 140 - 440 10*3/uL [facility] RBC (Bld) [#/Vol] 5.25 10*6/uL High 3.80 - 5.2 0 10*6/uL [facility] WBC (Bld) [#/Vol] 10.6 10*3/uL 3.6 - 10.7 10*3/uL [facility] Basophil percentageOrdered B y: Jose Heath on 07-29-2023 Basophil percentage < 1.0 mg/dL 0.55-1.02 [facility] No Panel InformationOrdered By: Jose Heath on 07-29-2023 Bedside Estimated GFR (eGFR) > 60.0000 mL/min >60 [facility] Basophil percentageOrdered B y: Jose Heath on 06-23-2023 Basophil percentage 10-25 SEEN /hpf 0-5 [facility] Amylase [Catalytic activity/Vol] 52 U/L 25-115 [facility] Bilirubin Test strip Ql (U)O rdered By: Jose Heath on 06-23-2023 Bilirubin Ql (U) Negative Negative [facility] Ketones Test strip Ql (U)Ord ered By: Joes Heath on 06-23-2023 Ketones Ql (U) Negative Negative [facility] Laboratory - Chemistry and C hemistry - challengeOrdered By: Jose Heath on 06-23-2023 Lipase [Catalytic activity/Vol] 37 U/L 13-75 [facility] Comment on above: Please note:LIPASE r evised reference range effective 22. New Lipase methodology. Expected to produce lower values than the previous assay method. NEW Reference Range: 13 - 75 U/L Mucus LM Ql (Urine sed)Order ed By: Jose Heath on 06-23-2023 Mucus Ql (Urine sed) 0 SEEN /hpf [facility] Nitrite Test strip Ql (U)Ord ered By: Jose Heath on 06-23-2023 Nitrite Ql (U) Negative Negative [facility] No Panel InformationOrdered By: Jose Heath on 06-23-2023 Urine RBC 0-5 SEEN /hpf 0-5 [facility] CA 19-9 Antigen 12 U/mL 0-35 [facility] Comment on above: [employer] El ectrochemiluminescence Immunoassay(ECLIA)Values obtained with different assay methods or kits cannotbe used interchangeably. Results cannot be interpreted asabsolute evidence of the presence or absence of malignantdisease.Performed at: [employer] [id number] Director: Demetrius Ashraf PhD, Phone: [phone] Protein Test strip Ql (U)Ord ered By: Jose Heath on 06-23-2023 Protein Ql (U) 15 mg/dl Negative [facility] Squamous epithelial cells de tection in urine sediment by light microscopyOrdered By: Jose Heath on 06-23-2023 Epithelial cells.squamous LM Ql (Urine sed) 0-5 SEEN /hpf 5-10 [facility] Transitional cells detection in urine sediment by light microscopyOrdered By: Jose Heath on 06-23-2023 Transitional cells LM Ql (Urine sed) 0-5 SEEN /hpf 0-5 [facility] Urine blood detectionOrdered By: Jose Heath on 06-23-2023 RBC Ql (U) 10 /ul Negative [facility] Urine clarityOrdered By: Arun Heath on 06-23-2023 Clarity (U) Sl. Cloudy Clear [facility] Urine color determinationOrd ered By: Jose Heath on 06-23-2023 Color (U) Yellow Yellow [facility] Urine glucose detectionOrder ed By: Jose Heath on 06-23-2023 Glucose Ql (U) Normal mg/dl Normal [facility] Urine leukocyte esterase det ection by dipstickOrdered By: Jose Heath on 06-23-2023 Leukocyte esterase Test strip Ql (U) 500 /ul Negative [facility] Urine pHOrdered By: Jose Heath on 06-23-2023 pH (U) 6.0 [pH] 5.0 - 8.0 [facility] Urine sediment bacteria coun t by microscopy (number/high power field)Ordered By: Jose Heath on 06-23-2023 Bacteria LM.HPF (Urine sed) [#/Area] 1 /[HPF] None Seen [facility] Urine specific gravity measu rementOrdered By: Jose Heath on 06-23-2023 Specific gravity (U) [Rel density] 1.015 1.002-1.030 [facility] Urine urobilinogen measureme ntOrdered By: Jose Heath on 06-23-2023 Urobilinogen Ql (U) Normal mg/dl Normal [facility] Cobalamin (Vitamin B12) [Mas s/Vol]Ordered By: Lucinda Pinzon on 12-01-2022 [facility] [employer] No Panel InformationOrdered By: Jose Heath on 09-09-2022 Miscellaneous Test See comment [facility] Comment on above: TEST RESULT LIMITSIB D Expanded Panel Curtis 18 units 0-50 Negative <45 Equivocal 45 - 50 Positive >50 ACCA 23 units 0-90 Negative <80 Equivocal 80 - 90 Positive >90 ALCA 3 units 0-60 Negative <55 Equivocal 55 - 60 Positive >60 AMCA 19 units 0-100 Negative < 90 Equivocal 90 - 100 Positive >100 This test was developed and its performance characteristics determined by [employer]. It has not been cleared or approved by the Food and Drug Administration. The FDA has determined that such clearance or approval is not necessary.Atypical pANCA Negative Negative Comments Pattern is not suggestive of Inflammatory Bowel Disease ___ TESTING PERFORMED AT [facility]. ORIGINAL REPORT ON FILE IN LAB CONTAINS ADDITIONAL TEST SITE INFORMATION. Albumin Elph [Mass/Vol]Order ed By: Jose Heath on 09-02-2022 Albumin [Mass/Vol] 3.5 g/dL 2.9-4.4 [facility] Atypical perinuclear antineu trophil cytoplasmic antibodies measurementOrdered By: Jose Heath on 09-02-2022 Neutrophil cytoplasmic Ab.perinuclear.atypical IF (S) [Titer] <1:20 titer Neg:<1:20 [facility] Comment on above: The atypical pANCA p attern has been observed in asignificant percentage of patients with ulcerative colitis,primary sclerosing cholangitis and autoimmune hepatitis. Basophil percentageOrdered B y: Jose Heath on 09-02-2022 Amylase [Catalytic activity/Vol] 54 U/L 25-115 [facility] Basophil percentage < 0.2 AI 0.0-0.9 [facility] LDH [Catalytic activity/Vol] 170 U/L 84-246 [facility] Interpretation of serum or p lasma protein pattern by immunofixation (narrative resultOrdered By: Jose Heath on 09-02-2022 Protein Fractions Immunofixation Richard [Interp] See comment [facility] Comment on above: Results: Not Observe d Laboratory - Chemistry and C hemistry - challengeOrdered By: Jose Heath on 09-02-2022 Amylase [Catalytic activity/Vol] 30 U/L 5-55 [facility] Lipase [Catalytic activity/Vol] 31 U/L 13-75 [facility] Comment on above: Please note:LIPASE r evised reference range effective 22. New Lipase methodology. Expected to produce lower values than the previous assay method. NEW Reference Range: 13 - 75 U/L No Panel InformationOrdered By: Jose Heath on 09-02-2022 Addendum Document Comment . [facility] Comment on above: Protein electrophore sis scan will follow via computer,mail, or control clerk repairs delivery. CA 19-9 Antigen 14 U/mL 0-35 [facility] Comment on above: [employer] El ectrochemiluminescence Immunoassay(ECLIA)Values obtained with different assay methods or kits cannotbe used interchangeably. Results cannot be interpreted asabsolute evidence of the presence or absence of malignantdisease. CA 19-9 Antigen Serial Monitoring Not Reportable [facility] Centromere B Antibody 0.4 AI 0.0-0.9 [facility] Endomysial IgA Antibody Negative Negative [facility] Immunoglobulin G4 32 mg/dL 2-96 [facility] CLINICAL REHABILITATION AIDE Antibody <0.2 AI 0.0-0.9 [facility] Thyroid Stimulating Hormone (TSH) 1.97 uIU/mL 0.358-3.74 [facility] Total Complement (CH50) > 60 U/mL >41 [facility] Comment on above: Age Male Female 1 - 30 days Not Estab. Not Estab. 31 days - 6 months >32 >20 7 months - 17 years >39 >39 >17 years >41 >41 NOTE: The adult (>17 years) reference interval range is used to flag abnormals on this report. If the patient is 17 years old or younger, use the table above to determine out of range values.Performed at: [facility] [address] [id number] Director: Demetrius Ashraf PhD, Phone: [phone] Serum DNA double strand anti body assay (units/volume)Ordered By: Jose Heath on 09-02-2022 DNA double strand Ab Qn (S) 1 [IU]/mL 0-9 [facility] Comment on above: Negative <5 Equivoca l 5 - 9 Positive >9 Serum IgG subclass 1 measure ment (mass/volume)Ordered By: Jose Heath on 09-02-2022 IgG subclass 1 (S) [Mass/Vol] 750 mg/dL 248-810 [facility] Serum IgG subclass 2 measure ment (mass/volume)Ordered By: Jose Heath on 09-02-2022 IgG subclass 2 (S) [Mass/Vol] 197 mg/dL 130-555 [facility] Serum IgG subclass 3 measure ment (mass/volume)Ordered By: Jose Heath on 09-02-2022 IgG subclass 3 (S) [Mass/Vol] 51 mg/dL 15-102 [facility] Serum Kayli-1 antibody assay (u nits/volume)Ordered By: Jose Heath on 09-02-2022 Kayli-1 extractable nuclear Ab Qn (S) <0.2 AI 0.0-0.9 [facility] Serum Scl-70 extractable nuc lear antibody assay (units/volume)Ordered By: Jose Heath on 09-02-2022 SCL-70 extractable nuclear Ab Qn (S) 0.3 AI 0.0-0.9 [facility] Serum Michel extractable nucl ear antibody detectionOrdered By: Jose Heath on 09-02-2022 Michel extractable nuclear Ab Ql (S) <0.2 AI 0.0-0.9 [facility] Serum [id number] measu rement by electrophoresisOrdered By: Jose Heath on 09-02-2022 Alpha 1 globulin Elph [Mass/Vol] 0.3 g/dL 0.0-0.4 [facility] Alpha 1 globulin Elph [Mass/Vol] 0.9 g/dL 0.4-1.0 [facility] Serum classic neutrophil cyt oplasmic antibody assay (units/volume)Ordered By: Jose Heath on 09-02-2022 Neutrophil cytoplasmic Ab.classic Qn (S) <1:20 titer Neg:<1:20 [facility] Serum globulin measurement ( mass/volume)Ordered By: Jose Heath on 09-02-2022 Globulin (S) [Mass/Vol] 3.5 g/dL 2.2-3.9 [facility] Serum or plasma C reactive p rotein measurement (mass/volume)Ordered By: Jose Heath on 09-02-2022 CRP [Mass/Vol] mg/L 0.0-3.0 [facility] Comment on above: C-Reactive Protein ( CRP) provides useful information for thediagnosis, therapy and monitoring of inflammatory processesand associated diseases. For the evaluation of Relative Riskfor Cardiovascular Disease, a High Sensitivity CRP (HSCRP)should be ordered. Serum or plasma IgA measurem ent (mass/volume)Ordered By: Jose Heath on 09-02-2022 IgA [Mass/Vol] 358 mg/dL 64-422 [facility] Serum or plasma IgG measurem ent (mass/volume)Ordered By: Jose Heath on 09-02-2022 IgG [Mass/Vol] 1176 mg/dL [facility] Serum or plasma IgM measurem ent (mass/volume)Ordered By: Jose Heath on 09-02-2022 IgM [Mass/Vol] 101 mg/dL 26-217 [facility] Serum or plasma angiotensin converting enzyme measurement (enzymatic activity/volume)Ordered By: Jose Heath on 09-02-2022 Angiotensin converting enzyme [Catalytic activity/Vol] 59 U/L 14-82 [facility] Serum or plasma beta globuli n measurement by electrophoresis (mass/volume)Ordered By: Jose Heath on 09-02-2022 Beta globulin Elph [Mass/Vol] 1.1 g/dL 0.7-1.3 [facility] Serum or plasma complement C 3 measurement (mass/volume)Ordered By: Jose Heath on 09-02-2022 Complement C3 [Mass/Vol] 163 mg/dL 82-167 [facility] Serum or plasma complement C 4 measurement (mass/volume)Ordered By: Jose Heath on 09-02-2022 Complement C4 [Mass/Vol] 31 mg/dL 12-38 [facility] Serum or plasma gamma globul in measurement by electrophoresis (mass/volume)Ordered By: Jose Heath on 09-02-2022 Gamma globulin Elph [Mass/Vol] 1.2 g/dL 0.4-1.8 [facility] Serum or plasma immunoelectr ophoresis interpretation (nominal result)Ordered By: Jose Heath on 09-02-2022 Interpretation IEP [Interp] Comment . [facility] Comment on above: No monoclonality det ected. Serum perinuclear neutrophil cytoplasmic antibody titer by immunofluorescenceOrdered By: Jose Heath on 09-02-2022 Neutrophil cytoplasmic Ab.perinuclear IF (S) [Titer] 1:320 titer Neg:<1:20 [facility] Comment on above: The presence of posi tive fluorescence exhibiting P-ANCA orC-ANCA patterns alone is not specific for the diagnosis ofWegener's Granulomatosis (WG) or microscopic polyangiitis.Decisions about treatment should not be based solely onANCA IFA results. The [employer] ANCA Group Consensusrecommends follow up testing of positive sera with both MD-3 and MPO-ANCA enzyme immunoassays. As many as 5% serumsamples are positive only by EIA. Ref. AM J Clin Mklajl3890;111:507-513. Serum tissue transglutaminas e IgA antibody assay (units/volume)Ordered By: Jose Heath on 09-02-2022 tTG IgA Qn (S) <2 U/mL 0-3 [facility] Comment on above: Negative 0 - 3 Weak Positive 4 - 10 Positive >10 Tissue Transglutaminase (tTG) has been identified as the endomysial antigen. Studies have demonstr- ated that endomysial IgA antibodies have over 99% specificity for gluten sensitive enteropathy. Thin prep Papanicolaou smear with manual screeningOrdered By: Jose Heath on 09-02-2022 Thin prep Papanicolaou smear with manual screening 1.1 0.7-1.7 [facility] Total protein bloodOrdered B y: Jose Heath on 09-02-2022 Protein [Mass/Vol] 7.0 g/dL 6.0-8.5 [facility] Whole blood hemoglobin A1c/t otal hemoglobin ratio (mass fraction)Ordered By: Jose Heath on 09-02-2022 HbA1c (Bld) [Mass fraction] 5.7 % 3.8-5.6 [facility] Comment on above: Normal < 5.7 % Predi abetic 5.7 - 6.4 % Diabetic >or= 6.5 % Please note range changes. DXA-AXIAL SKELETONon 023 [facility] Basophil percentageOrdered B y: Dr. Barger on 08-04-2022 Basophil percentage < 0.9 mg/dL 0.55-1.02 [facility] No Panel InformationOrdered By: Dr. Barger on 08-04-2022 Bedside Estimated GFR (eGFR) > 60.0000 mL/min >60 [facility] Absolute lymphocyte countOrd ered By: Dr. Victor on 06-02-2022 Lymphocytes Auto (Unsp spec) [#/Vol] 1.08 10*3/uL 0.83-4.51 [facility] Basophil percentageOrdered B y: Dr. Victor on 06-02-2022 Basophils/100 WBC (Bld) 1.2 % 0-1 [facility] Chloride [Moles/Vol] 103 mmol/L 98-107 [facility] Eosinophils/100 WBC (Bld) 3.1 % 0-5 [facility] Glucose [Mass/Vol] 113 mg/dL 74-106 [facility] Comment on above: Fasting Glucose resu lt from 100 to 125 mg/dL suggests IMPAIRED HOMEOSTASIS per A.D.A. criteria. Neutrophils (Bld) [#/Vol] 4.0 10*3/uL 2.0-7.7 [facility] Neutrophils/100 WBC (Bld) 65.4 % 47-70 [facility] Potassium [Moles/Vol] 4.0 mmol/L 3.5-5.1 [facility] Comment on above: Moderate Hemolysis, Result may be falsely increased. Sodium [Moles/Vol] 138 mmol/L 136-145 [facility] WBC (Bld) [#/Vol] 6.1 10*3/uL 4.4-11.0 [facility] Blood erythrocytes count (nu mber/volume)Ordered By: Dr. Victor on 06-02-2022 RBC (Bld) [#/Vol] 5.07 10*6/uL 4.2-5.4 [facility] Blood hemoglobin measurement (mass/volume)Ordered By: Dr. Victor on 06-02-2022 Hemoglobin (Bld) [Mass/Vol] 13.6 g/dL 12.0-15.0 [facility] Blood lymphocytes/100 leukoc ytesOrdered By: Dr. Victor on 06-02-2022 Lymphocytes/100 WBC (Bld) 17.8 % 19-41 [facility] Blood monocytes/100 leukocyt esOrdered By: Dr. Victor on 06-02-2022 Monocytes/100 WBC (Bld) 11.8 % 0-10 [facility] Blood platelet mean volumeOr dered By: Dr. Victor on 06-02-2022 Platelet mean volume (Bld) [Entitic vol] 11.4 fL 6.2-12.0 [facility] Determination of erythrocyte mean corpuscular volume (MCV)Ordered By: Dr. Victor on 06-02-2022 MCV (RBC) [Entitic vol] 85.4 fL 81-99 [facility] Hematocrit Auto (Bld) [Volum e fraction]Ordered By: Dr. Victor on 06-02-2022 Hematocrit (Bld) [Volume fraction] 43.3 % 37-47 [facility] Laboratory - Chemistry and C hemistry - challengeOrdered By: Dr. Victor on 06-02-2022 CO2 [Moles/Vol] 28.0 mmol/L 21.0-32.0 [facility] Urea nitrogen/Creatinine [Mass ratio] 17.8 mg/mg 10-20 [facility] - Hematology and Cell countsOrdered By: Dr. Victor on 06-02-2022 Erythrocyte distribution width (RBC) [Entitic vol] 46.9 fL 35.1-43.9 [facility] Erythrocyte distribution width (RBC) [Ratio] 14.9 % 11.6-14.6 [facility] Immature granulocytes/100 WBC (Bld) 0.700 % 0.0-0.9 [facility] Comment on above: IG% - Immature Granu locytes (promyelocytes, myelocytes and metamyelocytes) > 1% indicates that a LEFT SHIFT is Present. MCH (RBC) [Entitic mass] 26.8 pg 27.0-32.0 [facility] Nucleated RBC/100 WBC (Bld) [Ratio] 0 % 0-5 [facility] MCHC Auto (RBC) [Mass/Vol]Or dered By: Dr. Victor on 06-02-2022 MCHC (RBC) [Mass/Vol] 31.4 g/dL 32-36 [facility] No Panel InformationOrdered By: Dr. Victor on 06-02-2022 Estimated Creatinine Clearance Calc 44.80 ml/min [facility] Estimated GFR (MDRD) Amer 91 mL/min >60 [facility] Comment on above: GFR Calc Estimated GFR (MDRD) Non-Af Amer 75 mL/min >60 [facility] Comment on above: Non- GFR Calc Platelets bldOrdered By: Dr. Victor on 06-02-2022 Platelets (Bld) [#/Vol] 210 10*3/uL 150-450 [facility] Serum or plasma calcium darnell urement (mass/volume)Ordered By: Dr. Victor on 06-02-2022 Calcium [Mass/Vol] 9.1 mg/dL 8.5-10.1 [facility] Serum or plasma creatinine m easurement (mass/volume)Ordered By: Dr. Victor on 06-02-2022 Creatinine [Mass/Vol] 0.79 mg/dL 0.55-1.02 [facility] Comment on above: The validity of the calculated GFR & GFRAA in patients over 70 years has not been determined. Clinical correlation is essential. Serum or plasma urea nitroge n measurement (mass/volume)Ordered By: Dr. Victor on 06-02-2022 Urea nitrogen [Mass/Vol] 14 mg/dL 7-18 [facility] Thin prep Papanicolaou smear with manual screeningOrdered By: Dr. Victor on 06-02-2022 Thin prep Papanicolaou smear with manual screening 7 5-15 [facility] Basophil percentageon 2022 Chloride [Moles/Vol] 106 mmol/L 98-107 [facility] Work Phone: Glucose [Mass/Vol] 111 mg/dL 74-106 [facility] Work Phone: Comment on above: Fasting Glucose resu lt from 100 to 125 mg/dL suggests IMPAIRED HOMEOSTASIS per A.D.A. criteria. Potassium [Moles/Vol] 3.5 mmol/L 3.5-5.1 [facility] Work Phone: Sodium [Moles/Vol] 137 mmol/L 136-145 [facility] Work Phone: Laboratory - Chemistry and C hemistry - challengeon 05-25-2022 CO2 [Moles/Vol] 26.0 mmol/L 21.0-32.0 [facility] Work Phone: Urea nitrogen/Creatinine [Mass ratio] 8.3 mg/mg 10-20 [facility] Work Phone: No Panel Informationon 05-25 Estimated Creatinine Clearance Calc 44.80 ml/min [facility] Work Phone: Estimated GFR (MDRD) Amer 101 mL/min >60 [facility] Work Phone: Comment on above: GFR Calc Estimated GFR (MDRD) Non-Af Amer 83 mL/min >60 [facility] Work Phone: Comment on above: Non- GFR Calc Serum or plasma calcium darnell urement (mass/volume)on 05-25-2022 Calcium [Mass/Vol] 8.0 mg/dL 8.5-10.1 [facility] Work Phone: Serum or plasma creatinine m easurement (mass/volume)on 05-25-2022 Creatinine [Mass/Vol] 0.72 mg/dL 0.55-1.02 [facility] Work Phone: Comment on above: The validity of the calculated GFR & GFRAA in patients over 70 years has not been determined. Clinical correlation is essential. Serum or plasma urea nitroge n measurement (mass/volume)on 05-25-2022 Urea nitrogen [Mass/Vol] 6 mg/dL 7-18 [facility] Work Phone: Thin prep Papanicolaou smear with manual screeningon 05-25-2022 Thin prep Papanicolaou smear with manual screening 5 5-15 [facility] Work Phone: Absolute lymphocyte counton 05-24-2022 Lymphocytes Auto (Unsp spec) [#/Vol] 1.20 10*3/uL 0.83-4.51 [facility] Work Phone: Basophil percentageon 2022 Basophils/100 WBC (Bld) 1.0 % 0-1 [facility] Work Phone: Eosinophils/100 WBC (Bld) 3.4 % 0-5 [facility] Work Phone: Neutrophils (Bld) [#/Vol] 5.2 10*3/uL 2.0-7.7 [facility] Work Phone: Neutrophils/100 WBC (Bld) 67.4 % 47-70 [facility] Work Phone: WBC (Bld) [#/Vol] 7.7 10*3/uL 4.4-11.0 [facility] Work Phone: Blood erythrocytes count (nu mber/volume)on 05-24-2022 RBC (Bld) [#/Vol] 4.49 10*6/uL 4.2-5.4 [facility] Work Phone: Blood hemoglobin measurement (mass/volume)on 05-24-2022 Hemoglobin (Bld) [Mass/Vol] 11.9 g/dL 12.0-15.0 [facility] Work Phone: Blood lymphocytes/100 leukoc yteson 05-24-2022 Lymphocytes/100 WBC (Bld) 15.6 % 19-41 [facility] Work Phone: Blood monocytes/100 leukocyt eson 05-24-2022 Monocytes/100 WBC (Bld) 12.2 % 0-10 [facility] Work Phone: Blood platelet mean volumeon 05-24-2022 Platelet mean volume (Bld) [Entitic vol] 11.8 fL 6.2-12.0 [facility] Work Phone: Determination of erythrocyte mean corpuscular volume (MCV)on 05-24-2022 MCV (RBC) [Entitic vol] 87.1 fL 81-99 [facility] Work Phone: Hematocrit Auto (Bld) [Volum e fraction]on 05-24-2022 Hematocrit (Bld) [Volume fraction] 39.1 % 37-47 [facility] Work Phone: Laboratory - Hematology and Cell countson 05-24-2022 Erythrocyte distribution width (RBC) [Entitic vol] 47.5 fL 35.1-43.9 [facility] Work Phone: Erythrocyte distribution width (RBC) [Ratio] 14.8 % 11.6-14.6 [facility] Work Phone: Immature granulocytes/100 WBC (Bld) 0.400 % 0.0-0.9 [facility] Work Phone: Comment on above: IG% - Immature Granu locytes (promyelocytes, myelocytes and metamyelocytes) > 1% indicates that a LEFT SHIFT is Present. MCH (RBC) [Entitic mass] 26.5 pg 27.0-32.0 [facility] Work Phone: Nucleated RBC/100 WBC (Bld) [Ratio] 0 % 0-5 [facility] Work Phone: MCHC Auto (RBC) [Mass/Vol]on 05-24-2022 MCHC (RBC) [Mass/Vol] 30.4 g/dL 32-36 [facility] Work Phone: Comment on above: Delta: 32.3 on 05/23 No Panel InformationOrdered By: Dr. Chandler on 05-24-2022 CA 19-9 Antigen 13 U/mL 0-35 [facility] Comment on above: [employer] El ectrochemiluminescence Immunoassay(ECLIA)Values obtained with different assay methods or kits cannotbe used interchangeably. Results cannot be interpreted asabsolute evidence of the presence or absence of malignantdisease.Performed at: [employer] [id number] Director: Demetrius Ashraf PhD, Phone: [phone] Platelets bldon 05-24-2022 Platelets (Bld) [#/Vol] 256 10*3/uL 150-450 [facility] Work Phone: Absolute lymphocyte counton 05-22-2022 Lymphocytes Auto (Unsp spec) [#/Vol] 1.59 10*3/uL 0.83-4.51 [facility] Work Phone: Basophil percentageOrdered B y: ED PROVIDER on 05-22-2022 Basophil percentage 0-5 SEEN /hpf 0-5 [facility] Basophil percentageon 2021 Basophils/100 WBC (Bld) 1.1 % 0-1 [facility] Work Phone: Chloride [Moles/Vol] 103 mmol/L 98-107 [facility] Work Phone: Eosinophils/100 WBC (Bld) 2.2 % 0-5 [facility] Work Phone: Glucose [Mass/Vol] 133 mg/dL 74-106 [facility] Work Phone: Comment on above: Fasting Glucose resu lt greater than or equal to 126 mg/dL suggests DIABETES MELLITUS per A.D.A. criteria. Neutrophils (Bld) [#/Vol] 9.7 10*3/uL 2.0-7.7 [facility] Work Phone: Neutrophils/100 WBC (Bld) 72.2 % 47-70 [facility] Work Phone: Potassium [Moles/Vol] 3.4 mmol/L 3.5-5.1 [facility] Work Phone: Comment on above: Moderate Hemolysis, Result may be falsely increased. Sodium [Moles/Vol] 138 mmol/L 136-145 [facility] Work Phone: WBC (Bld) [#/Vol] 13.4 10*3/uL 4.4-11.0 [facility] Work Phone: Basophil percentageOrdered B y: Dr. Miller on 05-22-2022 Bilirubin [Mass/Vol] 1.00 mg/dL 0.20-1.00 [facility] Comment on above: For patients on eltr ombopag therapy, use of Dimension [place] TBIL is not recommended. Protein [Mass/Vol] 8.8 g/dL 6.4-8.2 [facility] Bilirubin Test strip Ql (U)O rdered By: ED PROVIDER on 05-22-2022 Bilirubin Ql (U) Negative Negative [facility] Blood erythrocytes count (nu mber/volume)on 05-22-2022 RBC (Bld) [#/Vol] 6.21 10*6/uL 4.2-5.4 [facility] Work Phone: Blood hemoglobin measurement (mass/volume)on 05-22-2022 Hemoglobin (Bld) [Mass/Vol] 16.7 g/dL 12.0-15.0 [facility] Work Phone: [phone] Blood lymphocytes/100 leukoc yteson 05-22-2022 Lymphocytes/100 WBC (Bld) 11.8 % 19-41 [facility] Work Phone: Blood manual differential co mment interpretation (narrative result)Ordered By: ED PROVIDER on 05-22-2022 Manual differential comment Richard (Bld) [Interp] SCANNED [facility] Blood monocytes/100 leukocyt eson 05-22-2022 Monocytes/100 WBC (Bld) 11.5 % 0-10 [facility] Work Phone: Blood platelet mean volumeon 05-22-2022 Platelet mean volume (Bld) [Entitic vol] 11.6 fL 6.2-12.0 [facility] Work Phone: Determination of erythrocyte mean corpuscular volume (MCV)on 05-22-2022 MCV (RBC) [Entitic vol] 83.9 fL 81-99 [facility] Work Phone: Direct bilirubinOrdered By: Dr. Miller on 05-22-2022 Bilirubin.direct [Mass/Vol] 0.21 mg/dL 0.00-0.30 [facility] Hematocrit Auto (Bld) [Volum e fraction]on 05-22-2022 Hematocrit (Bld) [Volume fraction] 52.1 % 37-47 [facility] Work Phone: Ketones Test strip Ql (U)Ord ered By: ED PROVIDER on 05-22-2022 Ketones Ql (U) Negative Negative [facility] - Chemistry and C hemistry - challengeOrdered By: Dr. Miller on 05-22-2022 ALP [Catalytic activity/Vol] 151 U/L 45-117 [facility] ALT [Catalytic activity/Vol] 27 U/L 13-56 [facility] Globulin (S) [Mass/Vol] 5.0 g/dL 2.2-4.2 [facility] Lipase [Catalytic activity/Vol] 279 U/L 73-393 [facility] - Chemistry and C hemistry - challengeon 05-22-2022 CO2 [Moles/Vol] 29.0 mmol/L 21.0-32.0 [facility] Work Phone: Urea nitrogen/Creatinine [Mass ratio] 17.7 mg/mg 10-20 [facility] Work Phone: Laboratory - Hematology and Cell countson 05-22-2022 Erythrocyte distribution width (RBC) [Entitic vol] 44.2 fL 35.1-43.9 [facility] Work Phone: Erythrocyte distribution width (RBC) [Ratio] 14.9 % 11.6-14.6 [facility] Work Phone: Immature granulocytes/100 WBC (Bld) 1.200 % 0.0-0.9 [facility] Work Phone: Comment on above: IG% - Immature Granu locytes (promyelocytes, myelocytes and metamyelocytes) > 1% indicates that a LEFT SHIFT is Present. MCH (RBC) [Entitic mass] 26.9 pg 27.0-32.0 [facility] Work Phone: Nucleated RBC/100 WBC (Bld) [Ratio] 0 % 0-5 [facility] Work Phone: MCHC Auto (RBC) [Mass/Vol]on 05-22-2022 MCHC (RBC) [Mass/Vol] 32.1 g/dL 32-36 [facility] Work Phone: Mucus LM Ql (Urine sed)Order ed By: ED PROVIDER on 05-22-2022 Mucus Ql (Urine sed) 0 SEEN /hpf [facility] Nitrite Test strip Ql (U)Ord ered By: ED PROVIDER on 05-22-2022 Nitrite Ql (U) Negative Negative [facility] No Panel Informationon 05-22 Estimated Creatinine Clearance Calc 39.65 ml/min [facility] Work Phone: Estimated GFR (MDRD) Amer 60 mL/min >60 [facility] Work Phone: Comment on above: GFR Calc Estimated GFR (MDRD) Non-Af Amer 50 mL/min >60 [facility] Work Phone: Comment on above: Non- GFR Calc Platelets bldon 05-22-2022 Platelets (Bld) [#/Vol] 494 10*3/uL 150-450 [facility] Work Phone: Protein Test strip Ql (U)Ord ered By: ED PROVIDER on 05-22-2022 Protein Ql (U) 15 mg/dl Negative [facility] Review by pathologiston 04-25 Pathologist review Richard (Unsp spec) [Interp] Lisa rai [facility] Work Phone: Review by pathologistOrdered By: ED PROVIDER on 05-22-2022 Pathologist review Richard (Unsp spec) [Interp] Reviewed [facility] Comment on above: Previous reported re sult: Lisa rai Edited by: RGOOD on 05/26/22:1519Neutrophilic leukocytosis.Mild Thrombocytosis.Normocytic anemia.Clinical correlation suggested.Richie Marti D.O. 05/26/22 AMENDED REPORT 05/26/22 1519 PATH REV previously reported as: September cecelia Serum or plasma albumin darnell urement (mass/volume)Ordered By: Dr. Miller on 05-22-2022 Albumin [Mass/Vol] 3.8 g/dL 3.2-5.0 [facility] Serum or plasma calcium darnell urement (mass/volume)on 05-22-2022 Calcium [Mass/Vol] 10.1 mg/dL 8.5-10.1 [facility] Work Phone: Serum or plasma creatinine m easurement (mass/volume)on 05-22-2022 Creatinine [Mass/Vol] 1.13 mg/dL 0.55-1.02 [facility] Work Phone: Comment on above: The validity of the calculated GFR & GFRAA in patients over 70 years has not been determined. Clinical correlation is essential. Serum or plasma urea nitroge n measurement (mass/volume)on 05-22-2022 Urea nitrogen [Mass/Vol] 20 mg/dL 7-18 [facility] Work Phone: Squamous epithelial cells de tection in urine sediment by light microscopyOrdered By: ED PROVIDER on 05-22-2022 Epithelial cells.squamous LM Ql (Urine sed) 0-5 SEEN /hpf 5-10 [facility] Thin prep Papanicolaou smear with manual screeningOrdered By: Dr. Miller on 05-22-2022 Thin prep Papanicolaou smear with manual screening 29 U/L 15-37 [facility] Comment on above: Moderate Hemolysis, Result may be falsely increased. Thin prep Papanicolaou smear with manual screeningon 05-22-2022 Thin prep Papanicolaou smear with manual screening 6 5-15 [facility] Work Phone: Urine blood detectionOrdered By: ED PROVIDER on 05-22-2022 RBC Ql (U) 10 /ul Negative [facility] RBC Ql (U) 0 SEEN /hpf 0-5 [facility] Urine clarityOrdered By: ED PROVIDER on 05-22-2022 Clarity (U) Clear Clear [facility] Urine color determinationOrd ered By: ED PROVIDER on 05-22-2022 Color (U) Yellow Yellow [facility] Urine glucose detectionOrder ed By: ED PROVIDER on 05-22-2022 Glucose Ql (U) Normal mg/dl Normal [facility] Urine leukocyte esterase det ection by dipstickOrdered By: ED PROVIDER on 05-22-2022 Leukocyte esterase Test strip Ql (U) 500 /ul Negative [facility] Urine pHOrdered By: ED PROVI ROSSY on 05-22-2022 pH (U) 7.0 [pH] 5.0 - 8.0 [facility] Urine sediment bacteria coun t by microscopy (number/high power field)Ordered By: ED PROVIDER on 05-22-2022 Bacteria LM.HPF (Urine sed) [#/Area] 0 /[HPF] None Seen [facility] Urine specific gravity measu rementOrdered By: ED PROVIDER on 05-22-2022 Specific gravity (U) [Rel density] 1.010 1.002-1.030 [facility] Urobilinogen Auto test strip Ql (U)Ordered By: ED PROVIDER on 05-22-2022 Urobilinogen Ql (U) Normal mg/dl Normal [facility] XR Chest PA and Lateralon IMPRESSION: No acute radiographic abnormality. Manager Star: CAYETANO Transcribe Date/Time: May 15 2022 12:12P Dictated by : ZEESHAN MAXWELL MD This examination was interpreted and the report reviewed and electronically signed by: ZEESHAN MAXWELL MD on May 15 2022 12:13PM [facility] DIVISION OF RADIOLOGY * * *Final Report* * * DATE OF EXAM: May 14 2022 2:45PM WOX 5291 - XR CHEST 2V FRONTAL/LAT / PROCEDURE REASON: multiple diagnoses * * * * Physician Interpretation * * * * EXAMINATION: CHEST RADIOGRAPH (2 VIEW FRONTAL & LATERAL) CLINICAL HISTORY: Acute cough SOBOE (shortness of breath on exertion) MQ: XC2_6 EXAM DATE/TIME: 05/14/2022 2:45 PM COMPARISON: None. RESULT: Lines, tubes, and devices: None. Lungs and pleura: No consolidation. No lung mass. No pleural effusion. No pneumothorax. Cardiomediastinal silhouette: The cardiac silhouette and mediastinal contour are grossly within normal limits. Coronary stent in place. Bones and soft tissues: Status post median sternotomy. The spine shows degenerative changes. Multiple right rib deformities are visualized, likely related to prior trauma. DIVISION OF RADIOLOGY Provider, [facility] - 05/15/2022 * * *Final Report* * * DATE OF EXAM: May 14 2022 2:45PM WOX 5291 - XR CHEST 2V FRONTAL/LAT / PROCEDURE REASON: multiple diagnoses * * * * Physician Interpretation * * * * EXAMINATION: CHEST RADIOGRAPH (2 VIEW FRONTAL & LATERAL) CLINICAL HISTORY: Acute cough SOBOE (shortness of breath on exertion) MQ: XC2_6 EXAM DATE/TIME: 05/14/2022 2:45 PM COMPARISON: None. RESULT: Lines, tubes, and devices: None. Lungs and pleura: No consolidation. No lung mass. No pleural effusion. No pneumothorax. Cardiomediastinal silhouette: The cardiac silhouette and mediastinal contour are grossly within normal limits. Coronary stent in place. Bones and soft tissues: Status post median sternotomy. The spine shows degenerative changes. Multiple right rib deformities are visualized, likely related to prior trauma. IMPRESSION IMPRESSION: No acute radiographic abnormality. Manager Star: CAYETANO Transcribe Date/Time: May 15 2022 12:12P Dictated by : ZEESHAN MAXWELL MD This examination was interpreted and the report reviewed and electronically signed by: ZEESHAN MAXWELL MD on May 15 2022 12:13PM [facility] XR Chest PA and LateralOrder ed By: Ccf Provider on 05-15-2022 [facility] XR Chest PA and Lateralon Radiology Study observation (narrative) Anthony oneill [facility] Basophil percentageon 2021 Chloride [Moles/Vol] 101 mmol/L 98-107 [facility] Work Phone: Glucose [Mass/Vol] 108 mg/dL 74-106 [facility] Work Phone: Comment on above: Fasting Glucose resu lt from 100 to 125 mg/dL suggests IMPAIRED HOMEOSTASIS per A.D.A. criteria. Potassium [Moles/Vol] 2.6 mmol/L 3.5-5.1 [facility] Work Phone: Comment on above: Critical Result(s) C alled at: 18:45:52 12/22/2021 by: Victorino Lassiter to Dr Sanabria. Results read back by same. Sodium [Moles/Vol] 141 mmol/L 136-145 [facility] Work Phone: Laboratory - Chemistry and C hemistry - challengeon 12-22-2021 CO2 [Moles/Vol] 33.0 mmol/L 21.0-32.0 [facility] Work Phone: Free T4 [Mass/Vol] 1.14 ng/dL 0.76-1.46 [facility] Work Phone: Magnesium [Mass/Vol] 1.5 mg/dL 1.6-2.6 [facility] Work Phone: Urea nitrogen/Creatinine [Mass ratio] 8.4 mg/mg 10-20 [facility] Work Phone: No Panel Informationon 12-22 Estimated GFR (MDRD) Amer 85 mL/min >60 [facility] Work Phone: Comment on above: GFR Calc Estimated GFR (MDRD) Non-Af Amer 71 mL/min >60 [facility] Work Phone: Comment on above: Non- GFR Calc Free Triiodothyronine (T3) pg/dL 2.7 pg/mL 2.18-3.98 [facility] Work Phone: Thyroid Stimulating Hormone (TSH) 2.45 uIU/mL 0.358-3.74 [facility] Work Phone: Serum or plasma calcium darnell urement (mass/volume)on 12-22-2021 Calcium [Mass/Vol] 9.5 mg/dL 8.5-10.1 [facility] Work Phone: Serum or plasma creatinine m easurement (mass/volume)on 12-22-2021 Creatinine [Mass/Vol] 0.83 mg/dL 0.55-1.02 [facility] ster [facility] Work Phone: Comment on above: The validity of the calculated GFR & GFRAA in patients over 70 years has not been determined. Clinical correlation is essential. Serum or plasma urea nitroge n measurement (mass/volume)on 12-22-2021 Urea nitrogen [Mass/Vol] 7 mg/dL 7-18 [facility] Work Phone: Thin prep Papanicolaou smear with manual screeningon 12-22-2021 Thin prep Papanicolaou smear with manual screening 7 5-15 [facility] Work Phone: URINE CULTUREon 11-30-2021 Bacteria identified Cx Nom (U) 10,000 -<50,000 CFU/ml Mixed microbiota Abnormal [facility] Urinalysis complete panel (U )on 11-29-2021 Bilirubin Ql (U) Negative Negative [facility] Clarity (Unsp spec) Clear Clear [facility] Color (U) Light Yellow Yellow [facility] Epithelial cells LM.HPF (Urine sed) [#/Area] Few Abnormal None Seen /HPF [facility] Glucose Test strip (U) [Mass/Vol] Negative Negative [facility] Hemoglobin Ql (U) Negative Negative [facility] Ketones Ql (U) Negative Negative [facility] Leukocyte esterase Test strip Ql (U) Trace Abnormal Negative [facility] Nitrite Ql (U) Negative Negative [facility] pH (U) 7.0 [pH] 5.0 - 8.0 [facility] Protein (U) [Mass/Vol] Negative Negative [facility] RBC LM.HPF (Urine sed) [#/Area] 0-3 /HPF 0-3 /HPF [facility] Specific gravity (U) [Rel density] 1.013 1.005 - 1.030 [facility] Urobilinogen Ql (U) Negative Negative [facility] WBC LM.HPF (Urine sed) [#/Area] 6-10 /HPF Abnormal 0-5 /HPF [facility] No Panel Informationon 11-04 IMPRESSION: Bimalleolar soft tissue swelling bilaterally, left greater than right. Additionally there is left midfoot and forefoot soft tissue swelling. Osteopenia and degenerative change. No acute bony process. Manager Star: PSCB Transcribe Date/Time: Nov 04 2021 5:31P Dictated by : MARILUZ FALL MD This examination was interpreted and the report reviewed and electronically signed by: MARILUZ FALL MD on Nov 04 2021 5:35PM EST ZZZ_DO_NOT_ USE_DIVISIO N OF RADIOLOGY Radiology Study observation (narrative) [facility] No Panel InformationOrdered By: Ccf Provider on 11-04-2021 [facility] XR Ankle - left AP and Later al and obliqueon 11-04-2021 * * *Final Report* * * DATE OF EXAM: Nov 04 2021 5:26PM WOX 5298 - XR ANKLE 3V AP/LAT/OBL LT / PROCEDURE REASON: Left ankle swelling * * * * Physician Interpretation * * * * EXAMINATION: XR ANKLE 3V AP/LAT/OBL LT, XR FOOT 3V AP/LAT/OBL LT HISTORY: Left foot and left ankle swelling with erythema. TECHNIQUE: XR ANKLE 3V AP/LAT/OBL LT, XR FOOT 3V AP/LAT/OBL LT Laterality: LEFT Number of different views (projections): 3 M: XB_1 COMPARISON: Comparison is made to prior ankle foot studies dated and June 2017 RESULT: Standing frontal radiographs of the bilateral feet and ankles with oblique and lateral weightbearing views of the left foot and ankle demonstrate bimalleolar soft tissue swelling bilaterally, left more prominent than right. There is left mid and forefoot soft tissue swelling. No gas within the soft tissues There is underlying osteopenia and scattered degenerative change of the IP joints bilaterally. Joint spaces are preserved and there are no erosive or bony destructive changes. ZZZ_DO_NOT_ USE_DIVISIO N OF RADIOLOGY [facility], [facility] * * *Final Report* * * DATE OF EXAM: Nov 04 2021 5:26PM WOX 5298 - XR ANKLE 3V AP/LAT/OBL LT / PROCEDURE REASON: Left ankle swelling * * * * Physician Interpretation * * * * EXAMINATION: XR ANKLE 3V AP/LAT/OBL LT, XR FOOT 3V AP/LAT/OBL LT HISTORY: Left foot and left ankle swelling with erythema. TECHNIQUE: XR ANKLE 3V AP/LAT/OBL LT, XR FOOT 3V AP/LAT/OBL LT Laterality: LEFT Number of different views (projections): 3 M: XB_1 COMPARISON: Comparison is made to prior ankle foot studies dated and June 2017 RESULT: Standing frontal radiographs of the bilateral feet and ankles with oblique and lateral weightbearing views of the left foot and ankle demonstrate bimalleolar soft tissue swelling bilaterally, left more prominent than right. There is left mid and forefoot soft tissue swelling. No gas within the soft tissues There is underlying osteopenia and scattered degenerative change of the IP joints bilaterally. Joint spaces are preserved and there are no erosive or bony destructive changes. IMPRESSION IMPRESSION: Bimalleolar soft tissue swelling bilaterally, left greater than right. Additionally there is left midfoot and forefoot soft tissue swelling. Osteopenia and degenerative change. No acute bony process. Manager Star: CAYETANO Transcribe Date/Time: Nov 04 2021 5:31P Dictated by : MARILUZ FALL MD This examination was interpreted and the report reviewed and electronically signed by: MARILUZ FALL MD on Nov 04 2021 5:35PM [facility] XR Foot - left AP and Latera l and obliqueon 11-04-2021 * * *Final Report* * * DATE OF EXAM: Nov 04 2021 5:26PM WOX 5336 - XR FOOT 3V AP/LAT/OBL LT / PROCEDURE REASON: Foot swelling * * * * Physician Interpretation * * * * EXAMINATION: XR ANKLE 3V AP/LAT/OBL LT, XR FOOT 3V AP/LAT/OBL LT HISTORY: Left foot and left ankle swelling with erythema. TECHNIQUE: XR ANKLE 3V AP/LAT/OBL LT, XR FOOT 3V AP/LAT/OBL LT Laterality: LEFT Number of different views (projections): 3 M: XB_1 COMPARISON: Comparison is made to prior ankle foot studies dated and June 2017 RESULT: Standing frontal radiographs of the bilateral feet and ankles with oblique and lateral weightbearing views of the left foot and ankle demonstrate bimalleolar soft tissue swelling bilaterally, left more prominent than right. There is left mid and forefoot soft tissue swelling. No gas within the soft tissues There is underlying osteopenia and scattered degenerative change of the IP joints bilaterally. Joint spaces are preserved and there are no erosive or bony destructive changes. ZZZ_DO_NOT_ USE_DIVISIO N OF RADIOLOGY Provider, [facility] - 11/04/2021 * * *Final Report* * * DATE OF EXAM: Nov 04 2021 5:26PM WOX 5336 - XR FOOT 3V AP/LAT/OBL LT / PROCEDURE REASON: Foot swelling * * * * Physician Interpretation * * * * EXAMINATION: XR ANKLE 3V AP/LAT/OBL LT, XR FOOT 3V AP/LAT/OBL LT HISTORY: Left foot and left ankle swelling with erythema. TECHNIQUE: XR ANKLE 3V AP/LAT/OBL LT, XR FOOT 3V AP/LAT/OBL LT Laterality: LEFT Number of different views (projections): 3 M: XB_1 COMPARISON: Comparison is made to prior ankle foot studies dated and June 2017 RESULT: Standing frontal radiographs of the bilateral feet and ankles with oblique and lateral weightbearing views of the left foot and ankle demonstrate bimalleolar soft tissue swelling bilaterally, left more prominent than right. There is left mid and forefoot soft tissue swelling. No gas within the soft tissues There is underlying osteopenia and scattered degenerative change of the IP joints bilaterally. Joint spaces are preserved and there are no erosive or bony destructive changes. IMPRESSION IMPRESSION: Bimalleolar soft tissue swelling bilaterally, left greater than right. Additionally there is left midfoot and forefoot soft tissue swelling. Osteopenia and degenerative change. No acute bony process. Manager Star: CAYETANO Transcribe Date/Time: Nov 04 2021 5:31P Dictated by : MARILUZ FALL MD This examination was interpreted and the report reviewed and electronically signed by: MARILUZ FALL MD on Nov 04 2021 5:35PM [facility] MRA BRAIN WO IVCONon 022 MRA BRAIN WO IVCON * * *Final Report* * * DATE OF EXAM: May 30 2021 1:48PM MDM 0272 - MRA BRAIN WO IVCON / PROCEDURE REASON: multiple diagnoses * * * * Physician Interpretation * * * * EXAMINATION: MRA BRAIN WO IVCON CLINICAL HISTORY: Neurology Epic (electronic medical record) Encounter (using cut and paste feature) 04/25/2021: Patient with reported R occipital stroke s/p CABG x4 in October 2020. ?Pt still recovering from cardiac standpoint with HUTTON and fatigue. ?However, patient reports no focal weakness, numbness, or other focal neuro deficits. ?Records reviewed, and while uncertain if all are available at this time, from those available, appears that additional stroke workup necessary. ?Patient's family reports stroke was felt to be cardioembolic. ?However, no MRI, vessel imaging or lead atg developer performed to determine if possible other etiology. ?Concern that stroke may be involving greater extent than R occipital lobe given memory complaints. ?Of note only deficit on exam is left homonymous hemianopia that correlates with location of reported stroke, but pt and family were not aware of this deficit until today. ?Discussed with them stroke risks factors, prevention, and prognosis. ?They agree with plan as follows, with additional therapies to be determined based on results. ? -MRI brain to evaluate for extent of stroke and to determine if more than occipital lobe involved. -MRA of brain and neck to evaluate for large vessel disease as cause of stroke. NOTE: Cutting and pasting from [facility] to the dictation system appears to introduce question contreras after report finalization not visible during the dictation/within the dictation system itself. Inappropriateness of the question contreras usually clear from the context. If indeterminate, please refer to the original report in [facility]. Additionally, not responsible for any errors in the pasted information whether historical, contextual, typographical, or otherwise. For reference purposes only and any concerns should be raised with the actual provider for the given Epic encounter. TECHNIQUE: Intracranial 3D [id number] MRA with post-processing performed at the modality and 2D multiplanar and 3D maximum intensity projections were created, reviewed and archived. MQ: MRAB_4 COMPARISON: MRI brain and MRA of the neck 05/14/2021. RESULT: Imaging includes from the C2 level to just above the proximal A2 segments. Motion artifact. 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 Suspected severe stenosis of the right M1 segment with relative paucity of flow in right middle cerebral artery branches. Possible severe stenosis of a proximal sylvian branch plus or minus additional branches of the left middle cerebral artery. Likely severe stenosis of bilateral P2 segments with considerable irregularity of distal posterior cerebral arteries. No armen disease of the included anterior cerebral arteries. Unremarkable intracranial vertebral arteries, basilar artery, and internal carotid arteries. No proximal occlusion. No aneurysm formation. 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 Manager Star: [facility] Transcribe Date/Time: May 30 2021 2:24P Dictated by : NICOLLE CLAYTON MD This examination was interpreted and the report reviewed and electronically signed by: NICOLLE CLAYTON MD on May 30 2021 2:33PM EST [id number] [facility] EKG 12 LeadOrdered By: Pavan Brown on 11-19-2020 [facility] Work Phone: 1 [facility] Work Phone: [facility] Work Phone: CBCOrdered By: Porfirio bryan 11-18-2020 Hematocrit (Bld) [Volume fraction] 44.3 % 35.0 - 47.0 % [facility] Work Phone: [phone] Hemoglobin.gastrointesti nal spec 1 Ql (Stl) 14.5 g/dL 11.7 - 16.0 g/dL [facility] Work Phone: [phone] Interpretation and review of laboratory results Abnormal [facility] Work Phone: 7 MCH (RBC) [Entitic mass] 28.8 pg 26. 0 - 34.0 pg [facility] Work Phone: MCHC (RBC) [Mass/Vol] 32.7 % 32.0 - 36.0 % [facility] Work Phone: -[phone] MCV (RBC) [Entitic vol] 88.1 fL 79.0 - 98.0 fL [facility] Work Phone: 1 Platelet distribution width (Bld) [Ratio] 14.6 % High 11.5 - 14.5 % [facility] Work Phone: 1 Platelet mean volume (Bld) [Entitic vol] 8.8 fL 7.4 - 10.4 fL [facility] Work Phone: [phone] Platelets (Bld) [#/Vol] 321 10*3/uL 140 - 440 10*3/uL [facility] Work Phone: [phone] RBC (Bld) [#/Vol] 5.03 10*6/uL 3.80 - 5.2 0 10*6/uL [facility] Work Phone: [phone] WBC (Bld) [#/Vol] 9.9 10*3/uL 3.6 - 10.7 10*3/uL [facility] Work Phone: [phone]) [facility] Work Phone: 1 [facility] Work Phone: [phone] COVID-19Ordered By: Sally greenberg on 11-18-2020 SARS-CoV-2 Not detected Not Detected [facility] Work Phone: 1 [facility] Work Phone: [phone] Comprehensive Metabolic Pane l w/ Reflex to MGOrdered By: Porfirio Bridges on 11-18-2020 Albumin [Mass/Vol] 3.8 g/dL 3.5 - 5.0 g/dL [facility] Work Phone: [phone] ALP (Bld) [Catalytic activity/Vol] 180 U/L High 38 - 126 U/L [facility] Work Phone: [phone] ALT [Catalytic activity/Vol] 25 U/L 0 - 34 U/L [facility] Work Phone: [phone] Anion gap [Moles/Vol] 5 mmol/L 3 - 13 mmol/L [facility] Work Phone: ) AST [Catalytic activity/Vol] 43 U/L 15 - 46 U/L [facility] Work Phone: 1 Bilirubin [Mass/Vol] 0.8 mg/dL 0.2 - 1 .3 mg/dL [facility] Work Phone: [phone] Calcium [Mass/Vol] 9.1 mg/dL 8.4 - 10. 4 mg/dL [facility] Work Phone: [phone] Chloride [Moles/Vol] 100 mmol/L 98 - 10 7 mmol/L [facility] Work Phone: [phone] CO2 [Moles/Vol] 30 mmol/L 22 - 30 mmol/L [facility] Work Phone: [phone] Creatinine [Mass/Vol] 0.67 mg/dL 0.52 - 1.25 mg/dL [facility] Work Phone: [phone] EGFR IF NonAfrican [place]er 85.8 mL/min >60 [facility] Work Phone: [phone] Free PSA/Total PSA [Mass fraction] 7.1 g/dL 6.3 - 8.2 g/dL [facility] Work Phone: [phone] GFR/1.73 sq M.predicted among blacks MDRD (S/P/Bld) [Vol rate/Area] mL/min/{1.73_m2} >60 mL/min [facility] Work Phone: [phone] Glucose [Mass/Vol] 103 mg/dL High 70 - 100 mg/dL [facility] Work Phone: [phone] Potassium [Moles/Vol] 3.8 mmol/L 3.5 - 5.1 mmol/L [facility] Work Phone: [phone] Sodium [Moles/Vol] 135 mmol/L 135 - 145 mmol/L [facility] Work Phone: [phone] Urea nitrogen (BldV) [Mass/Vol] 16 mg/dL 7 - 20 mg/dL [facility] Work Phone: [phone] ECHO Complete 2D W Doppler W ColorOrdered By: Porfirio Bridges on 11-18-2020 [facility] Work Phone: [phone] [facility] Work Phone: [phone] [facility] Work Phone: [phone] EKG 12 lead if not done in t he EDOrdered By: Porfirio Bridges on 11-18-2020 [facility] Work Phone: [phone] [facility] Work Phone: [phone] [facility] Work Phone: [phone] Hemoglobin E9iNmoictx By: Judy Bridges on 11-18-2020 eAG 111 mg/dL [facility] Work Phone: [phone] HbA1c (Bld) [Mass fraction] 5.5 % [facility] Work Phone: [phone] [facility] Work Phone: [phone] [facility] Work Phone: [phone] Lipid panel - fastingOrdered By: Porfirio Bridges on 11-18-2020 Cholesterol [Mass/Vol] 148 mg/dL <200 [facility] Work Phone: [phone] Cholesterol in HDL [Mass/Vol] 30 mg/dL Low 40 - 60 mg/dL [facility] Work Phone: [phone] Cholesterol in LDL [Mass/Vol] 63 mg/dL <100 [facility] Work Phone: ) 222 Cholesterol.total/Choles terol in HDL [Mass ratio] 5 {ratio} [facility] Work Phone: [phone] Triglyceride [Mass/Vol] 277 mg/dL Abnormal <150 [facility] Work Phone: [phone] Panel InformationOrdered By: Porfirio Bridges on 11-18-2020 Interpretation and review of laboratory results Abnormal [facility] Work Phone: [phone] [facility] Work Phone: [phone] [facility] Work Phone: [phone] TroponinOrdered By: Porfirio nesibtt on 11-18-2020 Interpretation and review of laboratory results Abnormal [facility] Work Phone: [phone] Troponin I.cardiac [Mass/Vol] 0.064 ng/mL High 0.000 - 0.034 ng/mL [facility] Work Phone: [phone] [facility] Work Phone: [phone] [facility] Work Phone: [phone] HEAD WO CONTRASTOrdered B y: Porfirio Bridges on 11-17-2020 [facility] Work Phone: [phone] [facility] Work Phone: [phone] [facility] Work Phone: [phone] POCT GlucoseOrdered By: Tammy Poole on 11-17-2020 Glucose [Mass/Vol] 104 mg/dL High 70 - 100 mg/dL [facility] Work Phone: [phone] Interpretation and review of laboratory results Abnormal [facility] Work Phone: [phone] [facility] Work Phone: [phone] [facility] Work Phone: [phone] Basic Metabolic PanelOrdered By: Stephen Poole on 11-15-2020 Anion gap [Moles/Vol] 6 mmol/L 3 - 13 mmol/L [facility] Work Phone: 1 222 Calcium [Mass/Vol] 8.7 mg/dL 8.4 - 10. 4 mg/dL [facility] Work Phone: 222 Chloride [Moles/Vol] 101 mmol/L 98 - 10 7 mmol/L [facility] Work Phone: 1 222 CO2 [Moles/Vol] 27 mmol/L 22 - 30 mmol/L [facility] Work Phone: 222 Creatinine [Mass/Vol] 0.52 mg/dL 0.52 - 1.25 mg/dL [facility] Work Phone: [phone] EGFR IF NonAfrican [place] >90.0 >60 mL/min [facility] Work Phone: 1 222 GFR/1.73 sq M.predicted among blacks MDRD (S/P/Bld) [Vol rate/Area] mL/min/{1.73_m2} >60 mL/min [facility] Work Phone: [phone] Glucose [Mass/Vol] 102 mg/dL High 70 - 100 mg/dL [facility] Work Phone: [phone] Potassium [Moles/Vol] 4.2 mmol/L 3.5 - 5.1 mmol/L [facility] Work Phone: [phone] Sodium [Moles/Vol] 134 mmol/L Low 135 - 145 mmol/L [facility] Work Phone: [phone] Urea nitrogen (BldV) [Mass/Vol] 15 mg/dL 7 - 20 mg/dL [facility] Work Phone: [phone] CBCOrdered By: Carmelo Brown on 11-15-2020 Hematocrit (Bld) [Volume fraction] 37.3 % 35.0 - 47.0 % [facility] Work Phone: 1 222 Hemoglobin.gastrointesti nal spec 1 Ql (Stl) 12.5 g/dL 11.7 - 16.0 g/dL [facility] Work Phone: [phone] Interpretation and review of laboratory results Abnormal [facility] Work Phone: 1 MCH (RBC) [Entitic mass] 29.6 pg 26. 0 - 34.0 pg [facility] Work Phone: MCHC (RBC) [Mass/Vol] 33.4 % 32.0 - 36.0 % [facility] Work Phone: MCV (RBC) [Entitic vol] 88.6 fL 79.0 - 98.0 fL [facility] Work Phone: 1 Platelet distribution width (Bld) [Ratio] 14.5 % 11.5 - 14.5 % [facility] Work Phone: Platelet mean volume (Bld) [Entitic vol] 9.1 fL 7.4 - 10.4 fL [facility] Work Phone: 222 Platelets (Bld) [#/Vol] 168 10*3/uL 140 - 440 10*3/uL [facility] Work Phone: 222 RBC (Bld) [#/Vol] 4.20 10*6/uL 3.80 - 5.2 0 10*6/uL [facility] Work Phone: 222 WBC (Bld) [#/Vol] 11.0 10*3/uL High 3.6 - 10.7 10*3/uL [facility] Work Phone: [phone] [facility] Work Phone: 1 [facility] Work Phone: MagnesiumOrdered By: Stephen vega on 11-15-2020 Magnesium [Mass/Vol] 1.9 mg/dL 1.6 - 2 .3 mg/dL [facility] Work Phone: [phone] No Panel InformationOrdered By: Stephen Poole on 11-15-2020 Interpretation and review of laboratory results Abnormal [facility] Work Phone: 1 222 [facility] Work Phone: 1 222 [facility] Work Phone: 1 PhosphorusOrdered By: Stephen Poole on 11-15-2020 Phosphate [Mass/Vol] 2.3 mg/dL Low 2.5 - 4 .5 mg/dL [facility] Work Phone: XR CHEST PORTABLEOrdered By: Carmelo Brown on 11-15-2020 [facility] Work Phone: 222 [facility] Work Phone: 1 [facility] Work Phone: 1 Basic Metabolic PanelOrdered By: Carmelo Brown on 11-14-2020 Anion gap [Moles/Vol] 6 mmol/L 3 - 13 mmol/L [facility] Work Phone: 222 Calcium [Mass/Vol] 9.2 mg/dL 8.4 - 10. 4 mg/dL [facility] Work Phone: 222 Chloride [Moles/Vol] 104 mmol/L 98 - 10 7 mmol/L [facility] Work Phone: 222 CO2 [Moles/Vol] 26 mmol/L 22 - 30 mmol/L [facility] Work Phone: 222 Creatinine [Mass/Vol] 0.5 mg/dL Low 0.52 - 1.25 mg/dL [facility] Work Phone: 222 EGFR IF NonAfrican [place] >90.0 >60 mL/min [facility] Work Phone: 222 GFR/1.73 sq M.predicted among blacks MDRD (S/P/Bld) [Vol rate/Area] mL/min/{1.73_m2} >60 mL/min [facility] Work Phone: 1) 222 Glucose [Mass/Vol] 84 mg/dL 70 - 100 mg/dL [facility] Work Phone: 222 Interpretation and review of laboratory results Abnormal [facility] Work Phone: 1) 222 Potassium [Moles/Vol] 3.5 mmol/L 3.5 - 5.1 mmol/L [facility] Work Phone: 222 Sodium [Moles/Vol] 136 mmol/L 135 - 145 mmol/L [facility] Work Phone: 1 222 Urea nitrogen (BldV) [Mass/Vol] 11 mg/dL 7 - 20 mg/dL [facility] Work Phone: 1) [facility] Work Phone: 1) [facility] Work Phone: CBCOrdered By: Carmelo Brown on 11-14-2020 Hematocrit (Bld) [Volume fraction] 40.1 % 35.0 - 47.0 % [facility] Work Phone: 1 222 Hemoglobin.gastrointesti nal spec 1 Ql (Stl) 13.3 g/dL 11.7 - 16.0 g/dL [facility] Work Phone: ) Interpretation and review of laboratory results Abnormal [facility] Work Phone: MCH (RBC) [Entitic mass] 29.7 pg 26. 0 - 34.0 pg [facility] Work Phone: MCHC (RBC) [Mass/Vol] 33.1 % 32.0 - 36.0 % [facility] Work Phone: MCV (RBC) [Entitic vol] 89.8 fL 79.0 - 98.0 fL [facility] Work Phone: Platelet distribution width (Bld) [Ratio] 14.6 % High 11.5 - 14.5 % [facility] Work Phone: Platelet mean volume (Bld) [Entitic vol] 7.9 fL 7.4 - 10.4 fL [facility] Work Phone: 222 Platelets (Bld) [#/Vol] 208 10*3/uL 140 - 440 10*3/uL [facility] Work Phone: ) 222 RBC (Bld) [#/Vol] 4.47 10*6/uL 3.80 - 5.2 0 10*6/uL [facility] Work Phone: ) 222 WBC (Bld) [#/Vol] 11.2 10*3/uL High 3.6 - 10.7 10*3/uL [facility] Work Phone: 222 [facility] Work Phone: [phone] [facility] Work Phone: [phone] POCT GlucoseOrdered By: Tammy Poole on 11-14-2020 Glucose [Mass/Vol] 103 mg/dL High 70 - 100 mg/dL [facility] Work Phone: [phone] Interpretation and review of laboratory results Abnormal [facility] Work Phone: [phone] [facility] Work Phone: 1 222 [facility] Work Phone: 1 222 XR CHEST PORTABLEOrdered By: Carmelo Brown on 11-14-2020 [facility] Work Phone: [phone] [facility] Work Phone: 1 222 [facility] Work Phone: 1 222 Basic Metabolic PanelOrdered By: Carmelo Brown on 11-13-2020 Anion gap [Moles/Vol] 4 mmol/L 3 - 13 mmol/L [facility] Work Phone: 1 222 Calcium [Mass/Vol] 8.7 mg/dL 8.4 - 10. 4 mg/dL [facility] Work Phone: 1 222 Chloride [Moles/Vol] 103 mmol/L 98 - 10 7 mmol/L [facility] Work Phone: 1 222 CO2 [Moles/Vol] 28 mmol/L 22 - 30 mmol/L [facility] Work Phone: [phone] Creatinine [Mass/Vol] 0.51 mg/dL Low 0.52 - 1.25 mg/dL [facility] Work Phone: [phone] EGFR IF NonAfrican [place] >90.0 >60 mL/min [facility] Work Phone: 1) 222 GFR/1.73 sq M.predicted among blacks MDRD (S/P/Bld) [Vol rate/Area] mL/min/{1.73_m2} >60 mL/min [facility] Work Phone: [phone] Glucose [Mass/Vol] 103 mg/dL High 70 - 100 mg/dL [facility] Work Phone: [phone] Interpretation and review of laboratory results Abnormal [facility] Work Phone: [phone] Potassium [Moles/Vol] 4.0 mmol/L 3.5 - 5.1 mmol/L [facility] Work Phone: 1 222 Sodium [Moles/Vol] 135 mmol/L 135 - 145 mmol/L [facility] Work Phone: 1 222 Urea nitrogen (BldV) [Mass/Vol] 17 mg/dL 7 - 20 mg/dL [facility] Work Phone: 1 [facility] Work Phone: [facility] Work Phone: 1 CBCOrdered By: Carmelo Brown on 11-13-2020 Hematocrit (Bld) [Volume fraction] 38.1 % 35.0 - 47.0 % [facility] Work Phone: Hemoglobin.gastrointesti nal spec 1 Ql (Stl) 12.6 g/dL 11.7 - 16.0 g/dL [facility] Work Phone: Interpretation and review of laboratory results Abnormal [facility] Work Phone: MCH (RBC) [Entitic mass] 29.2 pg 26. 0 - 34.0 pg [facility] Work Phone: MCHC (RBC) [Mass/Vol] 33.0 % 32.0 - 36.0 % [facility] Work Phone: MCV (RBC) [Entitic vol] 88.4 fL 79.0 - 98.0 fL [facility] Work Phone: Platelet distribution width (Bld) [Ratio] 14.6 % High 11.5 - 14.5 % [facility] Work Phone: Platelet mean volume (Bld) [Entitic vol] 8.1 fL 7.4 - 10.4 fL [facility] Work Phone: ) 222 Platelets (Bld) [#/Vol] 285 10*3/uL 140 - 440 10*3/uL [facility] Work Phone: ) 222 RBC (Bld) [#/Vol] 4.31 10*6/uL 3.80 - 5.2 0 10*6/uL [facility] Work Phone: 222 WBC (Bld) [#/Vol] 12.8 10*3/uL High 3.6 - 10.7 10*3/uL [facility] Work Phone: [phone] [facility] Work Phone: [phone] [facility] Work Phone: [phone] COVID-19Ordered By: Ama Whipple on 11-13-2020 SARS-CoV-2 Not detected Not Detected [facility] Work Phone: [phone] [facility] Work Phone: [phone] EKG 12 LeadOrdered By: Rossy Garland on 11-13-2020 [facility] Work Phone: [phone] [facility] Work Phone: [phone] [facility] Work Phone: [phone] XR CHEST PORTABLEOrdered By: Carmelo Brown on 11-13-2020 [facility] Work Phone: [phone] [facility] Work Phone: [phone] [facility] Work Phone: [phone] Basic Metabolic PanelOrdered By: Carmelo Brown on 11-12-2020 Anion gap [Moles/Vol] 2 mmol/L Low 3 - 13 mmol/L [facility] Work Phone: [phone] Calcium [Mass/Vol] 8.4 mg/dL 8.4 - 10. 4 mg/dL [facility] Work Phone: [phone] Chloride [Moles/Vol] 104 mmol/L 98 - 10 7 mmol/L [facility] Work Phone: [phone] CO2 [Moles/Vol] 28 mmol/L 22 - 30 mmol/L [facility] Work Phone: [phone] Creatinine [Mass/Vol] 0.52 mg/dL 0.52 - 1.25 mg/dL [facility] Work Phone: [phone] EGFR IF NonAfrican [place] >90.0 >60 mL/min [facility] Work Phone: [phone] GFR/1.73 sq M.predicted among blacks MDRD (S/P/Bld) [Vol rate/Area] mL/min/{1.73_m2} >60 mL/min [facility] Work Phone: [phone] Glucose [Mass/Vol] 96 mg/dL 70 - 100 mg/dL [facility] Work Phone: 1 Interpretation and review of laboratory results Abnormal [facility] Work Phone: 1 Potassium [Moles/Vol] 3.9 mmol/L 3.5 - 5.1 mmol/L [facility] Work Phone: 1 Sodium [Moles/Vol] 134 mmol/L Low 135 - 145 mmol/L [facility] Work Phone: Urea nitrogen (BldV) [Mass/Vol] 18 mg/dL 7 - 20 mg/dL [facility] Work Phone: 1 [facility] Work Phone: 1 [facility] Work Phone: CBCOrdered By: Carmelo Brown on 11-12-2020 Hematocrit (Bld) [Volume fraction] 37.6 % 35.0 - 47.0 % [facility] Work Phone: Hemoglobin.gastrointesti nal spec 1 Ql (Stl) 12.7 g/dL 11.7 - 16.0 g/dL [facility] Work Phone: 1 Interpretation and review of laboratory results Abnormal [facility] Work Phone: MCH (RBC) [Entitic mass] 29.8 pg 26. 0 - 34.0 pg [facility] Work Phone: MCHC (RBC) [Mass/Vol] 33.8 % 32.0 - 36.0 % [facility] Work Phone: MCV (RBC) [Entitic vol] 88.0 fL 79.0 - 98.0 fL [facility] Work Phone: Platelet distribution width (Bld) [Ratio] 14.5 % 11.5 - 14.5 % [facility] Work Phone: Platelet mean volume (Bld) [Entitic vol] 8.1 fL 7.4 - 10.4 fL [facility] Work Phone: Platelets (Bld) [#/Vol] 257 10*3/uL 140 - 440 10*3/uL [facility] Work Phone: RBC (Bld) [#/Vol] 4.27 10*6/uL 3.80 - 5.2 0 10*6/uL [facility] Work Phone: [phone] WBC (Bld) [#/Vol] 11.4 10*3/uL High 3.6 - 10.7 10*3/uL [facility] Work Phone: [phone] [facility] Work Phone: [phone] [facility] Work Phone: [phone] XR CHEST PORTABLEOrdered By: Carmelo Brown on 11-12-2020 [facility] Work Phone: [phone] [facility] Work Phone: [phone] [facility] Work Phone: [phone] Add On Lab TestOrdered By: Irina Gandara on 11-11-2020 Add On Accepted [facility] Work Phone: [phone] [facility] Work Phone: [phone] [facility] Work Phone: [phone] Add On Accepted [facility] Work Phone: [phone] [facility] Work Phone: [phone] [facility] Work Phone: [phone] Basic Metabolic PanelOrdered By: Carmelo Brown on 11-11-2020 Anion gap [Moles/Vol] 6 mmol/L 3 - 13 mmol/L [facility] Work Phone: [phone] Calcium [Mass/Vol] 9.6 mg/dL 8.4 - 10. 4 mg/dL [facility] Work Phone: [phone] Chloride [Moles/Vol] 102 mmol/L 98 - 10 7 mmol/L [facility] Work Phone: [phone] CO2 [Moles/Vol] 27 mmol/L 22 - 30 mmol/L [facility] Work Phone: [phone] Creatinine [Mass/Vol] 0.5 mg/dL Low 0.52 - 1.25 mg/dL [facility] Work Phone: [phone] EGFR IF NonAfrican [place] >90.0 >60 mL/min [facility] Work Phone: [phone] GFR/1.73 sq M.predicted among blacks MDRD (S/P/Bld) [Vol rate/Area] mL/min/{1.73_m2} >60 mL/min [facility] Work Phone: 1 Glucose [Mass/Vol] 99 mg/dL 70 - 100 mg/dL [facility] Work Phone: 1 Interpretation and review of laboratory results Abnormal [facility] Work Phone: 1 Potassium [Moles/Vol] 4.2 mmol/L 3.5 - 5.1 mmol/L [facility] Work Phone: Sodium [Moles/Vol] 135 mmol/L 135 - 145 mmol/L [facility] Work Phone: 1 Urea nitrogen (BldV) [Mass/Vol] 14 mg/dL 7 - 20 mg/dL [facility] Work Phone: 1 [facility] Work Phone: 1 [facility] Work Phone: 1 CBCOrdered By: Carmelo Brown on 11-11-2020 Hematocrit (Bld) [Volume fraction] 43.1 % 35.0 - 47.0 % [facility] Work Phone: Hemoglobin.gastrointesti nal spec 1 Ql (Stl) 14.1 g/dL 11.7 - 16.0 g/dL [facility] Work Phone: [phone] Interpretation and review of laboratory results Abnormal [facility] Work Phone: 1 MCH (RBC) [Entitic mass] 29.3 pg 26. 0 - 34.0 pg [facility] Work Phone: MCHC (RBC) [Mass/Vol] 32.6 % 32.0 - 36.0 % [facility] Work Phone: 1 MCV (RBC) [Entitic vol] 89.8 fL 79.0 - 98.0 fL [facility] Work Phone: Platelet distribution width (Bld) [Ratio] 15.0 % High 11.5 - 14.5 % [facility] Work Phone: 1 Platelet mean volume (Bld) [Entitic vol] 7.9 fL 7.4 - 10.4 fL [facility] Work Phone: [phone] Platelets (Bld) [#/Vol] 282 10*3/uL 140 - 440 10*3/uL [facility] Work Phone: [phone] RBC (Bld) [#/Vol] 4.80 10*6/uL 3.80 - 5.2 0 10*6/uL [facility] Work Phone: WBC (Bld) [#/Vol] 14.4 10*3/uL High 3.6 - 10.7 10*3/uL [facility] Work Phone: [phone] [facility] Work Phone: [phone] [facility] Work Phone: [phone] EKG 12 LeadOrdered By: Pavan Brown on 11-11-2020 [facility] Work Phone: [phone] [facility] Work Phone: [phone] [facility] Work Phone: [phone] [facility] Work Phone: [phone] [facility] Work Phone: [phone] [facility] Work Phone: [phone] EKG 12 LeadOrdered By: Ruperto Gandara on 11-11-2020 [facility] Work Phone: [phone] [facility] Work Phone: [phone] [facility] Work Phone: [phone] EKG 12 leadOrdered By: Liu Morrison on 11-11-2020 [facility] Work Phone: [phone] [facility] Work Phone: [phone] [facility] Work Phone: [phone] [facility] Work Phone: [phone] [facility] Work Phone: [phone] [facility] Work Phone: [phone] TroponinOrdered By: Carmelo Brown on 11-11-2020 Interpretation and review of laboratory results Abnormal [facility] Work Phone: [phone] Troponin I.cardiac [Mass/Vol] 0.264 ng/mL High 0.000 - 0.034 ng/mL [facility] Work Phone: [phone] [facility] Work Phone: [phone] [facility] Work Phone: [phone] XR CHEST PORTABLEOrdered By: Carmelo Brown on 11-11-2020 [facility] Work Phone: [phone] [facility] Work Phone: ) 222 [facility] Work Phone: [phone] Basic Metabolic PanelOrdered By: Carmelo Brown on 11-10-2020 Anion gap [Moles/Vol] 5 mmol/L 3 - 13 mmol/L [facility] Work Phone: ) 222 Calcium [Mass/Vol] 8.6 mg/dL 8.4 - 10. 4 mg/dL [facility] Work Phone: 1) 222 Chloride [Moles/Vol] 104 mmol/L 98 - 10 7 mmol/L [facility] Work Phone: ) 222 CO2 [Moles/Vol] 25 mmol/L 22 - 30 mmol/L [facility] Work Phone: [phone] Creatinine [Mass/Vol] 0.46 mg/dL Low 0.52 - 1.25 mg/dL [facility] Work Phone: ) 222 EGFR IF NonAfrican [place] >90.0 >60 mL/min [facility] Work Phone: 1) 222 GFR/1.73 sq M.predicted among blacks MDRD (S/P/Bld) [Vol rate/Area] mL/min/{1.73_m2} >60 mL/min [facility] Work Phone: [phone] Glucose [Mass/Vol] 116 mg/dL High 70 - 100 mg/dL [facility] Work Phone: [phone] Interpretation and review of laboratory results Abnormal [facility] Work Phone: [phone] Potassium [Moles/Vol] 3.5 mmol/L 3.5 - 5.1 mmol/L [facility] Work Phone: [phone] Sodium [Moles/Vol] 134 mmol/L Low 135 - 145 mmol/L [facility] Work Phone: [phone] Urea nitrogen (BldV) [Mass/Vol] 15 mg/dL 7 - 20 mg/dL [facility] Work Phone: [phone] Anion gap [Moles/Vol] 7 mmol/L 3 - 13 mmol/L [facility] Work Phone: [phone]) 222 Calcium [Mass/Vol] 8.9 mg/dL 8.4 - 10. 4 mg/dL [facility] Work Phone: 1 Chloride [Moles/Vol] 100 mmol/L 98 - 10 7 mmol/L [facility] Work Phone: CO2 [Moles/Vol] 28 mmol/L 22 - 30 mmol/L [facility] Work Phone: Creatinine [Mass/Vol] 0.54 mg/dL 0.52 - 1.25 mg/dL [facility] Work Phone: EGFR IF NonAfrican [place] >90.0 >60 mL/min [facility] Work Phone: GFR/1.73 sq M.predicted among blacks MDRD (S/P/Bld) [Vol rate/Area] mL/min/{1.73_m2} >60 mL/min [facility] Work Phone: Glucose [Mass/Vol] 108 mg/dL High 70 - 100 mg/dL [facility] Work Phone: Interpretation and review of laboratory results Abnormal [facility] Work Phone: Potassium [Moles/Vol] 3.3 mmol/L Low 3.5 - 5.1 mmol/L [facility] Work Phone: Sodium [Moles/Vol] 135 mmol/L 135 - 145 mmol/L [facility] Work Phone: Urea nitrogen (BldV) [Mass/Vol] 14 mg/dL 7 - 20 mg/dL [facility] Work Phone: [facility] Work Phone: 1 [facility] Work Phone: CBCOrdered By: Carmelo Brown on 11-10-2020 Hematocrit (Bld) [Volume fraction] 40.0 % 35.0 - 47.0 % [facility] Work Phone: Hemoglobin.gastrointesti nal spec 1 Ql (Stl) 13.2 g/dL 11.7 - 16.0 g/dL [facility] Work Phone: Interpretation and review of laboratory results Abnormal [facility] Work Phone: 1() 222 MCH (RBC) [Entitic mass] 29.3 pg 26. 0 - 34.0 pg [facility] Work Phone: 1() 222 MCHC (RBC) [Mass/Vol] 33.0 % 32.0 - 36.0 % [facility] Work Phone: 1() 222 MCV (RBC) [Entitic vol] 88.8 fL 79.0 - 98.0 fL [facility] Work Phone: ) 222 Platelet distribution width (Bld) [Ratio] 14.3 % 11.5 - 14.5 % [facility] Work Phone: 1() 222 Platelet mean volume (Bld) [Entitic vol] 8.1 fL 7.4 - 10.4 fL [facility] Work Phone: ) 222 Platelets (Bld) [#/Vol] 337 10*3/uL 140 - 440 10*3/uL [facility] Work Phone: () 222 RBC (Bld) [#/Vol] 4.51 10*6/uL 3.80 - 5.2 0 10*6/uL [facility] Work Phone: () 222 WBC (Bld) [#/Vol] 13.3 10*3/uL High 3.6 - 10.7 10*3/uL [facility] Work Phone: () 222 [facility] Work Phone: 1() [facility] Work Phone: 1() 222 CBC Auto DifferentialOrdered By: Stephen Poole on 11-10-2020 Absolute Baso # 0.1 10*3/uL 0.0 - 0.2 10*3/uL [facility] Work Phone: 1() 222 Absolute Eos # 0.3 10*3/uL 0.0 - 0.5 10*3/uL [facility] Work Phone: () 222 Absolute Lymph # 1.2 10*3/uL 1.0 - 4.3 10*3/uL [facility] Work Phone: 1() 222 Absolute Cecil # 1.4 10*3/uL High 0.0 - 0.8 10*3/uL [facility] Work Phone: 1() 222 Absolute Neut # 12.4 10*3/uL High 1.8 - 7.0 10*3/uL [facility] Work Phone: [phone] Basophils/100 WBC (Bld) 0.6 % 0.0 - 2.0 % [facility] Work Phone: 1) 222 Eosinophils/100 WBC (Bld) 2.0 % 1.0 - 6.0 % [facility] Work Phone: 1) 222 Granulocytes/100 WBC (Bld) 80.5 % High 40.0 - 80.0 % [facility] Work Phone: 1) 222 Hematocrit (Bld) [Volume fraction] 38.8 % 35.0 - 47.0 % [facility] Work Phone: 1) 222 Hemoglobin.gastrointesti nal spec 1 Ql (Stl) 13.0 g/dL 11.7 - 16.0 g/dL [facility] Work Phone: 1) 222 Interpretation and review of laboratory results Abnormal [employer] Work Phone: 1) 222 Lymphocytes/100 WBC (Bld) 7.9 % Low 20.0 - 40.0 % [facility] Work Phone: 1) 222 MCH (RBC) [Entitic mass] 29.5 pg 26. 0 - 34.0 pg [facility] Work Phone: 1) 222 MCHC (RBC) [Mass/Vol] 33.6 % 32.0 - 36.0 % [facility] Work Phone: [phone] MCV (RBC) [Entitic vol] 87.8 fL 79.0 - 98.0 fL [facility] Work Phone: 1() 222 Monocytes/100 WBC (Bld) 9.0 % 2.0 - 10.0 % [facility] Work Phone: [phone] Platelet distribution width (Bld) [Ratio] 14.5 % 11.5 - 14.5 % [facility] Work Phone: [phone] Platelet mean volume (Bld) [Entitic vol] 8.1 fL 7.4 - 10.4 fL [facility] Work Phone: [phone] Platelets (Bld) [#/Vol] 301 10*3/uL 140 - 440 10*3/uL [facility] Work Phone: 1) 222 RBC (Bld) [#/Vol] 4.41 10*6/uL 3.80 - 5.2 0 10*6/uL [facility] Work Phone: 1) 222 WBC (Bld) [#/Vol] 15.5 10*3/uL High 3.6 - 10.7 10*3/uL [facility] Work Phone: 1) 222 [facility] Work Phone: 1 [facility] Work Phone: 222 Calcium, IonizedOrdered By: Stephen Poole on 11-10-2020 Ionized Ca 4.10 mg/dL Low 4.30 - 5.20 mg/dL [facility] Work Phone: 222 pH (Bld) 7.49 [pH] High [facility] Work Phone: ) 222 Comprehensive Metabolic Pane lOrdered By: Stephen Poole on 11-10-2020 Albumin [Mass/Vol] 3.3 g/dL Low 3.5 - 5.0 g/dL [facility] Work Phone: 1 222 ALP (Bld) [Catalytic activity/Vol] 133 U/L High 38 - 126 U/L [facility] Work Phone: 222 ALT [Catalytic activity/Vol] 22 U/L 0 - 34 U/L [facility] Work Phone: ) 222 Anion gap [Moles/Vol] 5 mmol/L 3 - 13 mmol/L [facility] Work Phone: ) 222 AST [Catalytic activity/Vol] 50 U/L High 15 - 46 U/L [facility] Work Phone: 222 Bilirubin [Mass/Vol] 0.9 mg/dL 0.2 - 1 .3 mg/dL [facility] Work Phone: 222 Calcium [Mass/Vol] 8.7 mg/dL 8.4 - 10. 4 mg/dL [facility] Work Phone: [phone] Chloride [Moles/Vol] 102 mmol/L 98 - 10 7 mmol/L [facility] Work Phone: 222 CO2 [Moles/Vol] 26 mmol/L 22 - 30 mmol/L [facility] Work Phone: [phone] Creatinine [Mass/Vol] 0.43 mg/dL Low 0.52 - 1.25 mg/dL [facility] Work Phone: [phone] EGFR IF NonAfrican [place] >90.0 >60 mL/min [facility] Work Phone: [phone] Free PSA/Total PSA [Mass fraction] 6.3 g/dL 6.3 - 8.2 g/dL [facility] Work Phone: [phone] GFR/1.73 sq M.predicted among blacks MDRD (S/P/Bld) [Vol rate/Area] mL/min/{1.73_m2} >60 mL/min [facility] Work Phone: [phone] Glucose [Mass/Vol] 118 mg/dL High 70 - 100 mg/dL [facility] Work Phone: [phone] Potassium [Moles/Vol] 3.6 mmol/L 3.5 - 5.1 mmol/L [facility] Work Phone: [phone] Sodium [Moles/Vol] 134 mmol/L Low 135 - 145 mmol/L [facility] Work [phone] Urea nitrogen (BldV) [Mass/Vol] 13 mg/dL 7 - 20 mg/dL [facility] Work Phone: [phone] EKG 12 LeadOrdered By: Pavan Brown on 11-10-2020 [facility] Work Phone: [phone] [facility] Work Phone: [phone] [facility] Work Phone: [phone] EKG 12 leadOrdered By: Liu Morrison on 11-10-2020 [facility] Work Phone: [phone] [facility] Work Phone: [phone] [facility] Work Phone: [phone] MagnesiumOrdered By: Stephen vega on 11-10-2020 Magnesium [Mass/Vol] 2.9 mg/dL High 1.6 - 2 .3 mg/dL [facility] Work Phone: [phone] MagnesiumOrdered By: Carmelo Brown on 11-10-2020 Magnesium [Mass/Vol] 1.9 mg/dL 1.6 - 2 .3 mg/dL [facility] Work Phone: [phone] No Panel InformationOrdered By: Stephen Poole on 11-10-2020 Interpretation and review of laboratory results Abnormal [facility] Work Phone: [phone] [facility] Work Phone: [phone] [facility] Work Phone: [phone] Panel InformationOrdered By: Carmelo Brown on 11-10-2020 [facility] Work Phone: [phone] [facility] Work Phone: [phone] PhosphorusOrdered By: Stephen Poole on 11-10-2020 Phosphate [Mass/Vol] 3.2 mg/dL 2.5 - 4 .5 mg/dL [facility] Work Phone: [phone] TroponinOrdered By: Stephen rushing on 11-10-2020 Interpretation and review of laboratory results Abnormal [facility] Work Phone: [phone] Troponin I.cardiac [Mass/Vol] 0.242 ng/mL High 0.000 - 0.034 ng/mL [facility] Work Phone: [phone] [facility] Work Phone: [phone] [facility] Work Phone: [phone] XR CHEST PORTABLEOrdered By: Carmelo Brown on 11-10-2020 [facility] Work Phone: [phone] [facility] Work Phone: [phone] [facility] Work Phone: [phone] Basic Metabolic PanelOrdered By: Carmelo Brown on 11-09-2020 Anion gap [Moles/Vol] 6 mmol/L 3 - 13 mmol/L [facility] Work Phone: [phone] Calcium [Mass/Vol] 8.9 mg/dL 8.4 - 10. 4 mg/dL [facility] Work Phone: [phone] Chloride [Moles/Vol] 102 mmol/L 98 - 10 7 mmol/L [facility] Work Phone: [phone] CO2 [Moles/Vol] 28 mmol/L 22 - 30 mmol/L [facility] Work Phone: [phone] Creatinine [Mass/Vol] 0.5 mg/dL Low 0.52 - 1.25 mg/dL [facility] Work Phone: [phone] EGFR IF NonAfrican [place] >90.0 >60 mL/min [facility] Work Phone: GFR/1.73 sq M.predicted among blacks MDRD (S/P/Bld) [Vol rate/Area] mL/min/{1.73_m2} >60 mL/min [facility] Work Phone: [phone] Glucose [Mass/Vol] 95 mg/dL 70 - 100 mg/dL [facility] Work Phone: 1 Interpretation and review of laboratory results Abnormal [facility] Work Phone: 1 Potassium [Moles/Vol] 3.3 mmol/L Low 3.5 - 5.1 mmol/L [facility] Work Phone: Sodium [Moles/Vol] 136 mmol/L 135 - 145 mmol/L [facility] Work Phone: [phone] Urea nitrogen (BldV) [Mass/Vol] 19 mg/dL 7 - 20 mg/dL [facility] Work Phone: 1 [facility] Work Phone: [phone] [facility] Work Phone: [phone] CBCOrdered By: Carmelo Brown on 11-09-2020 Hematocrit (Bld) [Volume fraction] 39.3 % 35.0 - 47.0 % [facility] Work Phone: [phone] Hemoglobin.gastrointesti nal spec 1 Ql (Stl) 12.9 g/dL 11.7 - 16.0 g/dL [facility] Work Phone: [phone] Interpretation and review of laboratory results Abnormal [facility] Work Phone: [phone] MCH (RBC) [Entitic mass] 29.3 pg 26. 0 - 34.0 pg [facility] Work Phone: MCHC (RBC) [Mass/Vol] 32.9 % 32.0 - 36.0 % [facility] Work Phone: [phone] MCV (RBC) [Entitic vol] 89.0 fL 79.0 - 98.0 fL [facility] Work Phone: [phone] Platelet distribution width (Bld) [Ratio] 14.7 % High 11.5 - 14.5 % [facility] Work Phone: 1() 222 Platelet mean volume (Bld) [Entitic vol] 8.9 fL 7.4 - 10.4 fL [facility] Work Phone: 1() 222 Platelets (Bld) [#/Vol] 242 10*3/uL 140 - 440 10*3/uL [facility] Work Phone: 1) 222 RBC (Bld) [#/Vol] 4.42 10*6/uL 3.80 - 5.2 0 10*6/uL [facility] Work Phone: 1() 222 WBC (Bld) [#/Vol] 12.8 10*3/uL High 3.6 - 10.7 10*3/uL [facility] Work Phone: 1() 222 [facility] Work Phone: [phone]) 222 [facility] Work Phone: 1) 222 XR CHEST PORTABLEOrdered By: Carmelo Brown on 11-09-2020 [facility] Work Phone: [phone]) [phone] [facility] Work Phone: [phone]) [phone] [facility] Work Phone: 1) 222 Basic Metabolic PanelOrdered By: Carmelo Brown on 11-08-2020 Anion gap [Moles/Vol] 9 mmol/L 3 - 13 mmol/L [facility] Work Phone: 1) 222 Calcium [Mass/Vol] 9.2 mg/dL 8.4 - 10. 4 mg/dL [facility] Work Phone: 1) 222 Chloride [Moles/Vol] 102 mmol/L 98 - 10 7 mmol/L [facility] Work Phone: 1) 222 CO2 [Moles/Vol] 25 mmol/L 22 - 30 mmol/L [facility] Work Phone: 1) 222 Creatinine [Mass/Vol] 0.46 mg/dL Low 0.52 - 1.25 mg/dL [facility] Work Phone: [phone] EGFR IF NonAfrican [place] >90.0 >60 mL/min [facility] Work Phone: 1) 222 GFR/1.73 sq M.predicted among blacks MDRD (S/P/Bld) [Vol rate/Area] mL/min/{1.73_m2} >60 mL/min [facility] Work Phone: ) Glucose [Mass/Vol] 96 mg/dL 70 - 100 mg/dL [facility] Work Phone: Potassium [Moles/Vol] 4.0 mmol/L 3.5 - 5.1 mmol/L [facility] Work Phone: Sodium [Moles/Vol] 135 mmol/L 135 - 145 mmol/L [facility] Work Phone: Urea nitrogen (BldV) [Mass/Vol] 19 mg/dL 7 - 20 mg/dL [facility] Work Phone: CBCOrdered By: Carmelo Brown on 11-08-2020 Hematocrit (Bld) [Volume fraction] 40.3 % 35.0 - 47.0 % [facility] Work Phone: Hemoglobin.gastrointesti nal spec 1 Ql (Stl) 13.4 g/dL 11.7 - 16.0 g/dL [facility] Work Phone: ) MCH (RBC) [Entitic mass] 30.1 pg 26. 0 - 34.0 pg [facility] Work Phone: MCHC (RBC) [Mass/Vol] 33.3 % 32.0 - 36.0 % [facility] Work Phone: MCV (RBC) [Entitic vol] 90.5 fL 79.0 - 98.0 fL [facility] Work Phone: Platelet distribution width (Bld) [Ratio] 15.0 % High 11.5 - 14.5 % [facility] Work Phone: ) Platelet mean volume (Bld) [Entitic vol] 9.4 fL 7.4 - 10.4 fL [facility] Work Phone: Platelets (Bld) [#/Vol] 239 10*3/uL 140 - 440 10*3/uL [facility] Work Phone: ) 222 RBC (Bld) [#/Vol] 4.45 10*6/uL 3.80 - 5.2 0 10*6/uL [facility] Work Phone: [phone] WBC (Bld) [#/Vol] 11.7 10*3/uL High 3.6 - 10.7 10*3/uL [facility] Work Phone: EKG 12 LeadOrdered By: Stephen Poole on 11-08-2020 [facility] Work Phone: [phone] [facility] Work Phone: [phone] [facility] Work Phone: [phone] EKG 12 leadOrdered By: Liu Morrison on 11-08-2020 [facility] Work Phone: [phone] [facility] Work Phone: [phone] [facility] Work Phone: [phone] Fluoroscopy modified barium swallow with videoOrdered By: Sally Fajardo on 11-08-2020 [facility] Work Phone: [phone] [facility] Work Phone: [phone] [facility] Work Phone: [phone] MagnesiumOrdered By: Carmelo Brown on 11-08-2020 Magnesium [Mass/Vol] 2.1 mg/dL 1.6 - 2 .3 mg/dL [facility] Work Phone: [phone] No Panel InformationOrdered By: Carmelo Brown on 11-08-2020 Interpretation and review of laboratory results Abnormal [facility] Work Phone: [phone] No Panel InformationOrdered By: Madhav Morrison on 11-08-2020 [facility] Work Phone: [phone] [facility] Work Phone: [phone] PhosphorusOrdered By: Yesi Morrison on 11-08-2020 Phosphate [Mass/Vol] 3.3 mg/dL 2.5 - 4 .5 mg/dL [facility] Work Phone: [phone] SOFT SUGAR CUTTER video swallowOrdered By: Sally Fajardo on 11-08-2020 [facility] Work Phone: [phone] [facility] Work Phone: [phone] [facility] Work Phone: [phone] US Heart TransesophagealOrde red By: Alphonso Hernandez on 11-08-2020 [facility] Work Phone: [phone] [facility] Work Phone: 1 [phone] [facility] Work Phone: [phone] 222 XR CHEST PORTABLEOrdered By: Carmelo Brown on 11-08-2020 [facility] Work Phone: [phone] [facility] Work Phone: [phone] [facility] Work Phone: [phone] Basic Metabolic PanelOrdered By: Bebeto Washington on 11-07-2020 Anion gap [Moles/Vol] 6 mmol/L 3 - 13 mmol/L [facility] Work Phone: 1) 222 Calcium [Mass/Vol] 9.1 mg/dL 8.4 - 10. 4 mg/dL [facility] Work Phone: 1) 222 Chloride [Moles/Vol] 102 mmol/L 98 - 10 7 mmol/L [facility] Work Phone: 1) 222 CO2 [Moles/Vol] 27 mmol/L 22 - 30 mmol/L [facility] Work Phone: [phone] Creatinine [Mass/Vol] 0.55 mg/dL 0.52 - 1.25 mg/dL [facility] Work Phone: [phone] EGFR IF NonAfrican [place] >90.0 >60 mL/min [facility] Work Phone: 1) 222 GFR/1.73 sq M.predicted among blacks MDRD (S/P/Bld) [Vol rate/Area] mL/min/{1.73_m2} >60 mL/min [facility] Work Phone: [phone] Glucose [Mass/Vol] 112 mg/dL High 70 - 100 mg/dL [facility] Work Phone: [phone] Interpretation and review of laboratory results Abnormal [facility] Work Phone: [phone] Potassium [Moles/Vol] 3.3 mmol/L Low 3.5 - 5.1 mmol/L [facility] Work Phone: [phone] Sodium [Moles/Vol] 136 mmol/L 135 - 145 mmol/L [facility] Work Phone: [phone] Urea nitrogen (BldV) [Mass/Vol] 20 mg/dL 7 - 20 mg/dL [facility] Work Phone: Basic Metabolic PanelOrdered By: Carmelo Brown on 11-07-2020 Anion gap [Moles/Vol] 2 mmol/L Low 3 - 13 mmol/L [facility] Work Phone: [phone] Calcium [Mass/Vol] 8.4 mg/dL 8.4 - 10. 4 mg/dL [facility] Work Phone: [phone] Chloride [Moles/Vol] 105 mmol/L 98 - 10 7 mmol/L [facility] Work Phone: [phone] CO2 [Moles/Vol] 28 mmol/L 22 - 30 mmol/L [facility] Work Phone: [phone] Creatinine [Mass/Vol] 0.4 mg/dL Low 0.52 - 1.25 mg/dL [facility] Work Phone: [phone] EGFR IF NonAfrican [place] >90.0 >60 mL/min [facility] Work Phone: [phone] GFR/1.73 sq M.predicted among blacks MDRD (S/P/Bld) [Vol rate/Area] mL/min/{1.73_m2} >60 mL/min [facility] Work Phone: [phone] Glucose [Mass/Vol] 120 mg/dL High 70 - 100 mg/dL [facility] Work Phone: [phone] Potassium [Moles/Vol] 3.7 mmol/L 3.5 - 5.1 mmol/L [facility] Work Phone: [phone] Sodium [Moles/Vol] 135 mmol/L 135 - 145 mmol/L [facility] Work Phone: [phone] Urea nitrogen (BldV) [Mass/Vol] 18 mg/dL 7 - 20 mg/dL [facility] Work Phone: CBCOrdered By: Bebeto laguna on 11-07-2020 Hematocrit (Bld) [Volume fraction] 39.3 % 35.0 - 47.0 % [facility] Work Phone: Hemoglobin.gastrointesti nal spec 1 Ql (Stl) 13.1 g/dL 11.7 - 16.0 g/dL [facility] Work Phone: [phone] MCH (RBC) [Entitic mass] 29.7 pg 26. 0 - 34.0 pg [facility] Work Phone: [phone]) 222 MCHC (RBC) [Mass/Vol] 33.4 % 32.0 - 36.0 % [facility] Work Phone: ) MCV (RBC) [Entitic vol] 88.9 fL 79.0 - 98.0 fL [facility] Work Phone: Platelet distribution width (Bld) [Ratio] 14.5 % 11.5 - 14.5 % [facility] Work Phone: ) 222 Platelet mean volume (Bld) [Entitic vol] 9.5 fL 7.4 - 10.4 fL [facility] Work Phone: ) 222 Platelets (Bld) [#/Vol] 212 10*3/uL 140 - 440 10*3/uL [facility] Work Phone: ) 222 RBC (Bld) [#/Vol] 4.42 10*6/uL 3.80 - 5.2 0 10*6/uL [facility] Work Phone: ) 222 WBC (Bld) [#/Vol] 10.5 10*3/uL 3.6 - 10.7 10*3/uL [facility] Work Phone: [phone]) 222 [facility] Work Phone: 1 [facility] Work Phone: CBCOrdered By: Carmelo Brown on 11-07-2020 Hematocrit (Bld) [Volume fraction] 32.5 % Low 35.0 - 47.0 % [facility] Work Phone: Hemoglobin.gastrointesti nal spec 1 Ql (Stl) 11.1 g/dL Low 11.7 - 16.0 g/dL [facility] Work Phone: ) 222 Interpretation and review of laboratory results Abnormal [facility] Work Phone: ) MCH (RBC) [Entitic mass] 29.9 pg 26. 0 - 34.0 pg [facility] Work Phone: 1) MCHC (RBC) [Mass/Vol] 34.0 % 32.0 - 36.0 % [facility] Work Phone: 1() 222 MCV (RBC) [Entitic vol] 88.0 fL 79.0 - 98.0 fL [facility] Work Phone: 1 222 Platelet distribution width (Bld) [Ratio] 14.4 % 11.5 - 14.5 % [facility] Work Phone: 1() 222 Platelet mean volume (Bld) [Entitic vol] 9.5 fL 7.4 - 10.4 fL [facility] Work Phone: 1) 222 Platelets (Bld) [#/Vol] 153 10*3/uL 140 - 440 10*3/uL [facility] Work Phone: 1) 222 RBC (Bld) [#/Vol] 3.70 10*6/uL Low 3.80 - 5.2 0 10*6/uL [facility] Work Phone: 1() 222 WBC (Bld) [#/Vol] 8.1 10*3/uL 3.6 - 10.7 10*3/uL [facility] Work Phone: 1) [facility] Work Phone: 1 [facility] Work Phone: [phone]) 222 Calcium, IonizedOrdered By: Bebeto Washington on 11-07-2020 Ionized Ca 4.50 mg/dL 4.30 - 5.20 mg/dL [facility] Work Phone: 1 222 pH (Bld) 7.40 [pH] [facility] Work Phone: 1() [facility] Work Phone: 1) [facility] Work Phone: 1() 222 EKG 12 leadOrdered By: Liu Morrison on 11-07-2020 [facility] Work Phone: 1() 222 [facility] Work Phone: 1() 222 [facility] Work Phone: 1() 222 [facility] Work Phone: 1() 222 [facility] Work Phone: 1() 222 [facility] Work Phone: 1() 222 MagnesiumOrdered By: Raymond Washington on 11-07-2020 Magnesium [Mass/Vol] 2.1 mg/dL 1.6 - 2 .3 mg/dL [facility] Work Phone: MagnesiumOrdered By: Carmelo Brown on 11-07-2020 Magnesium [Mass/Vol] 2.0 mg/dL 1.6 - 2 .3 mg/dL [facility] Work Phone: [phone] No Panel InformationOrdered By: Bebeto Washington on 11-07-2020 [facility] Work Phone: [phone] [facility] Work Phone: [phone] No Panel InformationOrdered By: Madhav Morrison on 11-07-2020 Interpretation and review of laboratory results Abnormal [facility] Work Phone: [phone] [facility] Work Phone: [phone] [facility] Work Phone: [phone] POCT GlucoseOrdered By: Tammy Poole on 11-07-2020 Glucose [Mass/Vol] 108 mg/dL High 70 - 100 mg/dL [facility] Work Phone: [phone] Interpretation and review of laboratory results Abnormal [facility] Work Phone: [phone] [facility] Work Phone: [phone] [facility] Work Phone: [phone] Glucose [Mass/Vol] 93 mg/dL 70 - 100 mg/dL [facility] Work Phone: [phone] [facility] Work Phone: [phone] [facility] Work Phone: [phone] Glucose [Mass/Vol] 98 mg/dL 70 - 100 mg/dL [facility] Work Phone: [phone] [facility] Work Phone: [phone] [facility] Work Phone: [phone] Glucose [Mass/Vol] 73 mg/dL 70 - 100 mg/dL [facility] Work Phone: [phone] [facility] Work Phone: [phone] [facility] Work Phone: [phone] PhosphorusOrdered By: Faustina Amaya on 11-07-2020 Phosphate [Mass/Vol] 3.0 mg/dL 2.5 - 4 .5 mg/dL [facility] Work Phone: [phone] PhosphorusOrdered By: Yesi Morrison on 11-07-2020 Phosphate [Mass/Vol] 2.3 mg/dL Low 2.5 - 4 .5 mg/dL [facility] Work Phone: 1 222 XR CHEST PORTABLEOrdered By: Carmelo Brown on 11-07-2020 [facility] Work Phone: [phone] [facility] Work Phone: [phone] [facility] Work Phone: [phone] Basic Metabolic PanelOrdered By: Carmelo Brown on 11-06-2020 Anion gap [Moles/Vol] 7 mmol/L 3 - 13 mmol/L [facility] Work Phone: 1 222 Calcium [Mass/Vol] 8.7 mg/dL 8.4 - 10. 4 mg/dL [facility] Work Phone: 1) 222 Chloride [Moles/Vol] 105 mmol/L 98 - 10 7 mmol/L [facility] Work Phone: 1 222 CO2 [Moles/Vol] 25 mmol/L 22 - 30 mmol/L [facility] Work Phone: [phone] Creatinine [Mass/Vol] 0.56 mg/dL 0.52 - 1.25 mg/dL [facility] Work Phone: [phone] EGFR IF NonAfrican [place] >90.0 >60 mL/min [facility] Work Phone: 1) 222 GFR/1.73 sq M.predicted among blacks MDRD (S/P/Bld) [Vol rate/Area] mL/min/{1.73_m2} >60 mL/min [facility] Work Phone: [phone] Glucose [Mass/Vol] 130 mg/dL High 70 - 100 mg/dL [facility] Work Phone: [phone]- [phone] Interpretation and review of laboratory results Abnormal [facility] Work Phone: [phone] Potassium [Moles/Vol] 4.1 mmol/L 3.5 - 5.1 mmol/L [facility] Work Phone: [phone] Sodium [Moles/Vol] 138 mmol/L 135 - 145 mmol/L [facility] Work Phone: [phone] Urea nitrogen (BldV) [Mass/Vol] 16 mg/dL 7 - 20 mg/dL [facility] Work Phone: 1 CBCOrdered By: Carmelo Brown on 11-06-2020 Hematocrit (Bld) [Volume fraction] 34.0 % Low 35.0 - 47.0 % [facility] Work Phone: Hemoglobin.gastrointesti nal spec 1 Ql (Stl) 11.6 g/dL Low 11.7 - 16.0 g/dL [facility] Work Phone: Interpretation and review of laboratory results Abnormal [facility] Work Phone: MCH (RBC) [Entitic mass] 30.1 pg 26. 0 - 34.0 pg [facility] Work Phone: MCHC (RBC) [Mass/Vol] 34.1 % 32.0 - 36.0 % [facility] Work Phone: MCV (RBC) [Entitic vol] 88.4 fL 79.0 - 98.0 fL [facility] Work Phone: Platelet distribution width (Bld) [Ratio] 14.5 % 11.5 - 14.5 % [facility] Work Phone: Platelet mean volume (Bld) [Entitic vol] 10.1 fL 7.4 - 10.4 fL [facility] Work Phone: 222 Platelets (Bld) [#/Vol] 139 10*3/uL Low 140 - 440 10*3/uL [facility] Work Phone: ) 222 RBC (Bld) [#/Vol] 3.84 10*6/uL 3.80 - 5.2 0 10*6/uL [facility] Work Phone: ) 222 WBC (Bld) [#/Vol] 7.5 10*3/uL 3.6 - 10.7 10*3/uL [facility] Work Phone: ) [facility] Work Phone: [facility] Work Phone: EKG 12 leadOrdered By: Liu Morrison on 11-06-2020 [facility] Work Phone: [facility] Work Phone: [phone] [facility] Work Phone: [phone] MagnesiumOrdered By: Carmelo Brown on 11-06-2020 Magnesium [Mass/Vol] 2.2 mg/dL 1.6 - 2 .3 mg/dL [facility] Work Phone: [phone] No Panel InformationOrdered By: Madhav Morrison on 11-06-2020 [facility] Work Phone: [phone] [facility] Work Phone: [phone] POCT GlucoseOrdered By: Priscilla Goldman on 11-06-2020 Glucose [Mass/Vol] 127 mg/dL High 70 - 100 mg/dL [facility] Work Phone: [phone]- [phone] Interpretation and review of laboratory results Abnormal [facility] Work Phone: [phone]- [phone] [facility] Work Phone: [phone] [facility] Work Phone: [phone] POCT GlucoseOrdered By: Tammy Poole on 11-06-2020 Glucose [Mass/Vol] 100 mg/dL 70 - 100 mg/dL [facility] Work Phone: [phone]- [phone] [facility] Work Phone: [phone] [facility] Work Phone: [phone]- [phone] Glucose [Mass/Vol] 138 mg/dL High 70 - 100 mg/dL [facility] Work Phone: [phone] Interpretation and review of laboratory results Abnormal [facility] Work Phone: [phone]- [phone] [facility] Work Phone: [phone]- [phone] [facility] Work Phone: [phone]- [phone] Glucose [Mass/Vol] 140 mg/dL High 70 - 100 mg/dL [facility] Work Phone: [phone] Interpretation and review of laboratory results Abnormal [facility] Work Phone: [phone] [facility] Work Phone: [phone] [facility] Work Phone: [phone] PhosphorusOrdered By: Yesi Morrison on 11-06-2020 Phosphate [Mass/Vol] 3.0 mg/dL 2.5 - 4 .5 mg/dL [facility] Work Phone: [phone] UrinalysisOrdered By: Izabel Whipple on 11-06-2020 Appearance (U) Clear Clear NA [facility] Work Phone: [phone] Bacteria, UA Negative Negative /[HPF] [facility] Work Phone: [phone] Bilirubin Urine Negative Negative mg/dL [facility] Work Phone: [phone] Color (U) Yellow Lt. Yellow NA [facility] Work Phone: [phone] Glucose, Ur 70 mg/dL Normal (<70) [facility] Work Phone: [phone] Hyaline Casts, UA Negative Negative /[LPF] [facility] Work Phone: [phone] Interpretation and review of laboratory results Abnormal [facility] Work Phone: [phone] Ketones Ql (U) 40 mg/dL Abnormal Negative [facility] Work Phone: [phone] LEUKOCYTES, UA Negative Negative Monica/uL [facility] Work Phone: [phone] Mucous Threads Few Negative /[LPF] [facility] Work Phone: [phone] Nitrite, Urine Negative Negative NA [facility] Work Phone: [phone] Occult Blood,Urine 0.2 mg/dL Abnormal Negative [facility] Work Phone: [phone] pH (U) 6.0 [pH] [facility] Work Phone: [phone] RBC, UA 11-25 Abnormal 0 - 2 /[HPF] [facility] Work Phone: [phone] Specific Shepherd, Urine 1.[address] [facility] Work Phone: [phone] Squam Epithel, UA 0-2 3 - 5 /[HPF] [facility] Work Phone: [phone] Total Protein, Urine 50 mg/dL Abnormal Negative [facility] Work Phone: Urobilinogen, Urine Normal Normal (0-1) mg/dL [facility] Work Phone: [phone] WBC, UA 6-10 Abnormal 0 - 5 /[HPF] [facility] Work Phone: [phone] [facility] Work Phone: [phone] [facility] Work Phone: [phone] XR CHEST PORTABLEOrdered By: Carmelo Brown on 11-06-2020 [facility] Work Phone: [phone] [facility] Work Phone: [phone] [facility] Work Phone: [phone]- [phone] Activated clotting timeOrder ed By: Andrew Goldman on 11-05-2020 Activated Clotting Time 187 s High 90 - 134 s S [facility] Work Phone: [phone] Interpretation and review of laboratory results Abnormal [facility] Work Phone: [phone]- [phone] [facility] Work Phone: [phone] [facility] Work Phone: [phone] Basic Metabolic PanelOrdered By: Carmelo Brown on 11-05-2020 Anion gap [Moles/Vol] 5 mmol/L 3 - 13 mmol/L [facility] Work Phone: [phone]- [phone] Calcium [Mass/Vol] 7.9 mg/dL Low 8.4 - 10. 4 mg/dL [facility] Work Phone: [phone]- [phone] Chloride [Moles/Vol] 109 mmol/L High 98 - 10 7 mmol/L [facility] Work Phone: [phone] CO2 [Moles/Vol] 23 mmol/L 22 - 30 mmol/L [facility] Work Phone: [phone]- [phone] Creatinine [Mass/Vol] 0.6 mg/dL 0.52 - 1.25 mg/dL [facility] Work Phone: [phone] EGFR IF NonAfrican [place] 89.0 mL/min >60 [facility] Work Phone: [phone]- 222 GFR/1.73 sq M.predicted among blacks MDRD (S/P/Bld) [Vol rate/Area] mL/min/{1.73_m2} >60 mL/min [facility] Work Phone: [phone] Glucose [Mass/Vol] 96 mg/dL 70 - 100 mg/dL [facility] Work Phone: [phone] Interpretation and review of laboratory results Abnormal [facility] Work Phone: [phone] Potassium [Moles/Vol] 3.8 mmol/L 3.5 - 5.1 mmol/L [facility] Work Phone: [phone] Sodium [Moles/Vol] 138 mmol/L 135 - 145 mmol/L [facility] Work Phone: 1 Urea nitrogen (BldV) [Mass/Vol] 13 mg/dL 7 - 20 mg/dL [facility] Work Phone: 1 Blood Gas, ArterialOrdered B y: Stephen Poole on 11-05-2020 Base Excess, Arterial -2.4 mmol/L -3.0 - 3.0 mmol/L [facility] Work Phone: [phone]) 222 FIO2 Arterial No data [facility] Work Phone: 222 HCO3, Arterial 22.1 mmol/L 21.0 - 25.0 mmol/L [facility] Work Phone: 1 Hemoglobin, Art, Extended 8.2 g/dL ScreenOnly [facility] Work Phone: Interpretation and review of laboratory results Abnormal [facility] Work Phone: O2 Sat, Arterial 98.3 % 95.0 - 100.0 % [facility] Work Phone: pCO2, Arterial 36.6 mm[Hg] 35.0 - 45.0 mm[Hg] [facility] Work Phone: 1 pH, Arterial 7.399 [facility] Work Phone: 1) pO2, Arterial 113.5 mm[Hg] High 80.0 - 100.0 mm[Hg] [facility] Work Phone: TCO2, Arterial 23.2 mmol/L 23.0 - 27.0 mmol/L [facility] Work Phone: 1 [facility] Work Phone: [facility] Work Phone: 1 CBCOrdered By: Carmelo Brown on 11-05-2020 Hematocrit (Bld) [Volume fraction] 23.4 % Low 35.0 - 47.0 % [facility] Work Phone: Hemoglobin.gastrointesti nal spec 1 Ql (Stl) 7.9 g/dL Low 11.7 - 16.0 g/dL [facility] Work Phone: [phone] Interpretation and review of laboratory results Abnormal [facility] Work Phone: 1 222 MCH (RBC) [Entitic mass] 29.5 pg 26. 0 - 34.0 pg [facility] Work Phone: 1() 222 MCHC (RBC) [Mass/Vol] 33.8 % 32.0 - 36.0 % [facility] Work Phone: 1() MCV (RBC) [Entitic vol] 87.2 fL 79.0 - 98.0 fL [facility] Work Phone: 1() 222 Platelet distribution width (Bld) [Ratio] 13.9 % 11.5 - 14.5 % [facility] Work Phone: 1() 222 Platelet mean volume (Bld) [Entitic vol] 9.4 fL 7.4 - 10.4 fL [facility] Work Phone: 1() 222 Platelets (Bld) [#/Vol] 144 10*3/uL 140 - 440 10*3/uL [facility] Work Phone: 1) 222 RBC (Bld) [#/Vol] 2.68 10*6/uL Low 3.80 - 5.2 0 10*6/uL [facility] Work Phone: 1() 222 WBC (Bld) [#/Vol] 7.6 10*3/uL 3.6 - 10.7 10*3/uL [facility] Work Phone: 1() [facility] Work Phone: 1) [facility] Work Phone: 222 Calcium, IonizedOrdered By: Andrew Goldman on 11-05-2020 Interpretation and review of laboratory results Abnormal [facility] Work Phone: ) 222 Ionized Ca 3.90 mg/dL Low 4.30 - 5.20 mg/dL [facility] Work Phone: () 222 pH (Bld) 7.44 [pH] [facility] Work Phone: 1() 222 [facility] Work Phone: 1() 222 [facility] Work Phone: 1() 222 EKG 12 leadOrdered By: Pavan Brown on 11-05-2020 [facility] Work Phone: 1() 222 [facility] Work Phone: 1) 222 [facility] Work Phone: 222 MagnesiumOrdered By: Carmelo Brown on 11-05-2020 Magnesium [Mass/Vol] 2.2 mg/dL 1.6 - 2 .3 mg/dL [facility] Work Phone: No Panel InformationOrdered By: Madhav Morrison on 11-05-2020 [facility] Work Phone: [phone] [facility] Work Phone: POCT GlucoseOrdered By: Tammy Poole on 11-05-2020 Glucose [Mass/Vol] 80 mg/dL 70 - 100 mg/dL [facility] Work Phone: [phone] [facility] Work Phone: [phone] [facility] Work Phone: [phone] Glucose [Mass/Vol] 97 mg/dL 70 - 100 mg/dL [facility] Work Phone: [phone] [facility] Work Phone: [phone] [facility] Work Phone: [phone] Glucose [Mass/Vol] 98 mg/dL 70 - 100 mg/dL [facility] Work Phone: [phone] [facility] Work Phone: [phone] [facility] Work Phone: [phone] Glucose [Mass/Vol] 109 mg/dL High 70 - 100 mg/dL [facility] Work Phone: Interpretation and review of laboratory results Abnormal [facility] Work Phone: [facility] Work Phone: [phone] [facility] Work Phone: POCT GlucoseOrdered By: Priscilla Goldman on 11-05-2020 Glucose [Mass/Vol] 72 mg/dL 70 - 100 mg/dL [facility] Work Phone: [phone] [facility] Work Phone: [phone] [facility] Work Phone: Glucose [Mass/Vol] 84 mg/dL 70 - 100 mg/dL [facility] Work Phone: [phone] [facility] Work Phone: [phone] [facility] Work Phone: [phone] Glucose [Mass/Vol] 76 mg/dL 70 - 100 mg/dL [facility] Work Phone: [phone] [facility] Work Phone: [phone] [facility] Work Phone: [phone] Glucose [Mass/Vol] 76 mg/dL 70 - 100 mg/dL [facility] Work Phone: [phone] [facility] Work Phone: [phone] [facility] Work Phone: [phone] Glucose [Mass/Vol] 85 mg/dL 70 - 100 mg/dL [facility] Work Phone: [phone] [facility] Work Phone: [phone] [facility] Work Phone: [phone] Glucose [Mass/Vol] 97 mg/dL 70 - 100 mg/dL [facility] Work Phone: [phone] [facility] Work Phone: [phone] [facility] Work Phone: [phone] PREPARE RBC (CROSSMATCH)Orde red By: Unknown Result on 11-05-2020 Blood product unit ID (Dose) [#] [id number] [facility] Work Phone: [phone] Blood product unit ID (Dose) [#] [id number] [facility] Work Phone: [phone] Blood Type 5100 [facility] Work Phone: [phone] Blood Type 7300 [facility] Work Phone: [phone] Dispense Status Blood Bank transfused [facility] Work Phone: [phone] Expiration Date [id number] [facility] Work Phone: [phone] Code Blood Bank [id number] [facility] Work Phone: [phone] [facility] Work Phone: [phone] [facility] Work Phone: [phone] PhosphorusOrdered By: Yesi Morrison on 11-05-2020 Phosphate [Mass/Vol] 2.9 mg/dL 2.5 - 4 .5 mg/dL [facility] Work Phone: [phone] XR CHEST PORTABLEOrdered By: Carmelo Brown on 11-05-2020 [facility] Work Phone: [phone] [facility] Work Phone: [phone] [facility] Work Phone: [phone] [facility] Work Phone: [phone] [facility] Work Phone: [phone] [facility] Work Phone: [phone] [facility] Work Phone: [phone] [facility] Work Phone: [phone] [facility] Work Phone: [phone] BASIC METABOLIC PANELOrdered By: Madhav Morrison on 11-04-2020 Anion gap [Moles/Vol] 6 mmol/L 3 - 13 mmol/L [facility] Work Phone: [phone] Calcium [Mass/Vol] 9.2 mg/dL 8.4 - 10. 4 mg/dL [facility] Work Phone: [phone] Chloride [Moles/Vol] 105 mmol/L 98 - 10 7 mmol/L [facility] Work Phone: [phone] CO2 [Moles/Vol] 25 mmol/L 22 - 30 mmol/L [facility] Work Phone: [phone] Creatinine [Mass/Vol] 0.69 mg/dL 0.52 - 1.25 mg/dL [facility] Work Phone: [phone] EGFR IF NonAfrican [place] 85.0 mL/min >60 [facility] Work Phone: [phone] GFR/1.73 sq M.predicted among blacks MDRD (S/P/Bld) [Vol rate/Area] mL/min/{1.73_m2} >60 mL/min [facility] Work Phone: [phone] Glucose [Mass/Vol] 100 mg/dL 70 - 100 mg/dL [facility] Work Phone: [phone] Potassium [Moles/Vol] 3.7 mmol/L 3.5 - 5.1 mmol/L [facility] Work Phone: [phone] Sodium [Moles/Vol] 136 mmol/L 135 - 145 mmol/L [facility] Work Phone: [phone] Urea nitrogen (BldV) [Mass/Vol] 15 mg/dL 7 - 20 mg/dL [facility] Work Phone: [phone] Basic Metabolic PanelOrdered By: Stephen Poole on 11-04-2020 Anion gap [Moles/Vol] 8 mmol/L 3 - 13 mmol/L [facility] Work Phone: [phone] Calcium [Mass/Vol] 7.8 mg/dL Low 8.4 - 10. 4 mg/dL [facility] Work Phone: [phone] Chloride [Moles/Vol] 111 mmol/L High 98 - 10 7 mmol/L [facility] Work Phone: [phone] CO2 [Moles/Vol] 21 mmol/L Low 22 - 30 mmol/L [facility] Work Phone: [phone] Creatinine [Mass/Vol] 0.6 mg/dL 0.52 - 1.25 mg/dL [facility] Work Phone: [phone] EGFR IF NonAfrican [place] 89.0 mL/min >60 [facility] Work Phone: [phone] GFR/1.73 sq M.predicted among blacks MDRD (S/P/Bld) [Vol rate/Area] mL/min/{1.73_m2} >60 mL/min [facility] Work Phone: [phone] Glucose [Mass/Vol] 103 mg/dL High 70 - 100 mg/dL [facility] Work Phone: [phone] Potassium [Moles/Vol] 4.1 mmol/L 3.5 - 5.1 mmol/L [facility] Work Phone: [phone] Sodium [Moles/Vol] 140 mmol/L 135 - 145 mmol/L [facility] Work Phone: [phone] Urea nitrogen (BldV) [Mass/Vol] 13 mg/dL 7 - 20 mg/dL [facility] Work Phone: [phone] Blood Gas, ArterialOrdered B y: Stephen Poole on 11-04-2020 Base Excess, Arterial -2.0 mmol/L -3.0 - 3.0 mmol/L [facility] Work Phone: [phone] FIO2 Arterial No data [facility] Work Phone: [phone] HCO3, Arterial 23.0 mmol/L 21.0 - 25.0 mmol/L [facility] Work Phone: [phone] Hemoglobin, Art, Extended 9 g/dL ScreenOnly [facility] Work Phone: [phone]) [phone] Interpretation and review of laboratory results Abnormal [facility] Work Phone: 1) 222 O2 Sat, Arterial 98.6 % 95.0 - 100.0 % [facility] Work Phone: 1) 222 pCO2, Arterial 40.6 mm[Hg] 35.0 - 45.0 mm[Hg] [facility] Work Phone: 1) 222 pH, Arterial 7.372 [facility] Work Phone: 1) 222 pO2, Arterial 131.1 mm[Hg] High 80.0 - 100.0 mm[Hg] [facility] Work Phone: 1) 222 TCO2, Arterial 24.3 mmol/L 23.0 - 27.0 mmol/L [facility] Work Phone: [phone]) [phone] [facility] Work Phone: [phone]) 222 [facility] Work Phone: 1) 222 Base Excess, Arterial -1.8 mmol/L -3.0 - 3.0 mmol/L [facility] Work Phone: [phone]) 222 FIO2 Arterial No data [facility] Work Phone: 1) 222 HCO3, Arterial 25.3 mmol/L High 21.0 - 25.0 mmol/L [facility] Work Phone: [phone] Hemoglobin, Art, Extended 9.2 g/dL ScreenOnly [facility] Work Phone: [phone] Interpretation and review of laboratory results Abnormal [facility] Work Phone: 1) 222 O2 Sat, Arterial 94.8 % Low 95.0 - 100.0 % [facility] Work Phone: 1) 222 pCO2, Arterial 55.8 mm[Hg] High 35.0 - 45.0 mm[Hg] [facility] Work Phone: 1) 222 pH, Arterial 7.275 Low [facility] Work Phone: 1) 222 pO2, Arterial 85.0 mm[Hg] 80.0 - 100.0 mm[Hg] [facility] Work Phone: 1) 222 TCO2, Arterial 27.1 mmol/L High 23.0 - 27.0 mmol/L [facility] Work Phone: [phone]) 222 [facility] Work Phone: [phone]) [phone] [facility] Work Phone: 1 Base Excess, Arterial -3.7 mmol/L Low -3.0 - 3.0 mmol/L [facility] Work Phone: 1 FIO2 Arterial No data [facility] Work Phone: HCO3, Arterial 21.4 mmol/L 21.0 - 25.0 mmol/L [facility] Work Phone: 1 Hemoglobin, Art, Extended 8.2 g/dL ScreenOnly [facility] Work Phone: 1 O2 Sat, Arterial 98.9 % 95.0 - 100.0 % [facility] Work Phone: pCO2, Arterial 38.9 mm[Hg] 35.0 - 45.0 mm[Hg] [facility] Work Phone: pH, Arterial 7.358 [facility] Work Phone: pO2, Arterial 330.0 mm[Hg] High 80.0 - 100.0 mm[Hg] [facility] Work Phone: 1 TCO2, Arterial 22.6 mmol/L Low 23.0 - 27.0 mmol/L [facility] Work Phone: 1 CBCOrdered By: Andrew bryan 11-04-2020 Hematocrit (Bld) [Volume fraction] 26.3 % Low 35.0 - 47.0 % [facility] Work Phone: Hemoglobin.gastrointesti nal spec 1 Ql (Stl) 8.8 g/dL Low 11.7 - 16.0 g/dL [facility] Work Phone: 1) Interpretation and review of laboratory results Abnormal [facility] Work Phone: MCH (RBC) [Entitic mass] 29.5 pg 26. 0 - 34.0 pg [facility] Work Phone: MCHC (RBC) [Mass/Vol] 33.5 % 32.0 - 36.0 % [facility] Work Phone: MCV (RBC) [Entitic vol] 88.0 fL 79.0 - 98.0 fL [facility] Work Phone: [phone] Platelet distribution width (Bld) [Ratio] 13.8 % 11.5 - 14.5 % [facility] Work Phone: 1 222 Platelet mean volume (Bld) [Entitic vol] 8.8 fL 7.4 - 10.4 fL [facility] Work Phone: ) Platelets (Bld) [#/Vol] 146 10*3/uL 140 - 440 10*3/uL [facility] Work Phone: ) RBC (Bld) [#/Vol] 2.98 10*6/uL Low 3.80 - 5.2 0 10*6/uL [facility] Work Phone: 1) 222 WBC (Bld) [#/Vol] 9.2 10*3/uL 3.6 - 10.7 10*3/uL [facility] Work Phone: 1) [facility] Work Phone: 1) [facility] Work Phone: 1 CBCOrdered By: Stephen bryan 11-04-2020 Hematocrit (Bld) [Volume fraction] 23.2 % Low 35.0 - 47.0 % [facility] Work Phone: ) Hemoglobin.gastrointesti nal spec 1 Ql (Stl) 7.8 g/dL Low 11.7 - 16.0 g/dL [facility] Work Phone: 1 222 Interpretation and review of laboratory results Abnormal [facility] Work Phone: ) 222 MCH (RBC) [Entitic mass] 29.5 pg 26. 0 - 34.0 pg [facility] Work Phone: ) 222 MCHC (RBC) [Mass/Vol] 33.8 % 32.0 - 36.0 % [facility] Work Phone: 1) 222 MCV (RBC) [Entitic vol] 87.3 fL 79.0 - 98.0 fL [facility] Work Phone: 1) 222 Platelet distribution width (Bld) [Ratio] 13.9 % 11.5 - 14.5 % [facility] Work Phone: 1) 222 Platelet mean volume (Bld) [Entitic vol] 8.9 fL 7.4 - 10.4 fL [facility] Work Phone: 1() 222 Platelets (Bld) [#/Vol] 131 10*3/uL Low 140 - 440 10*3/uL [facility] Work Phone: [phone] RBC (Bld) [#/Vol] 2.65 10*6/uL Low 3.80 - 5.2 0 10*6/uL [facility] Work Phone: [phone] WBC (Bld) [#/Vol] 8.7 10*3/uL 3.6 - 10.7 10*3/uL [facility] Work Phone: [phone] [facility] Work Phone: [phone] [facility] Work Phone: [phone] CBC Auto DifferentialOrdered By: Madhav Morrison on 11-04-2020 Absolute Baso # 0.0 10*3/uL 0.0 - 0.2 10*3/uL [facility] Work Phone: [phone] Absolute Eos # 0.2 10*3/uL 0.0 - 0.5 10*3/uL [facility] Work Phone: 1() 222 Absolute Lymph # 1.2 10*3/uL 1.0 - 4.3 10*3/uL [facility] Work Phone: [phone] Absolute Cecil # 1.1 10*3/uL High 0.0 - 0.8 10*3/uL [facility] Work Phone: [phone] Absolute Neut # 8.1 10*3/uL High 1.8 - 7.0 10*3/uL [facility] Work Phone: 1() 222 Basophils/100 WBC (Bld) 0.4 % 0.0 - 2.0 % [facility] Work Phone: [phone] Eosinophils/100 WBC (Bld) 1.9 % 1.0 - 6.0 % [facility] Work Phone: 1() 222 Granulocytes/100 WBC (Bld) 75.5 % 40.0 - 80.0 % [facility] Work Phone: [phone] Hematocrit (Bld) [Volume fraction] 45.0 % 35.0 - 47.0 % [facility] Work Phone: [phone] Hemoglobin.gastrointesti nal spec 1 Ql (Stl) 14.6 g/dL 11.7 - 16.0 g/dL [facility] Work Phone: [phone] Interpretation and review of laboratory results Abnormal [facility] Work Phone: 1) 222 Lymphocytes/100 WBC (Bld) 11.6 % Low 20.0 - 40.0 % [facility] Work Phone: 1) 222 MCH (RBC) [Entitic mass] 29.1 pg 26. 0 - 34.0 pg [facility] Work Phone: 1) 222 MCHC (RBC) [Mass/Vol] 32.5 % 32.0 - 36.0 % [facility] Work Phone: 1 222 MCV (RBC) [Entitic vol] 89.4 fL 79.0 - 98.0 fL [facility] Work Phone: 1) 222 Monocytes/100 WBC (Bld) 10.6 % High 2.0 - 10.0 % [facility] Work Phone: 1) 222 Platelet distribution width (Bld) [Ratio] 14.4 % 11.5 - 14.5 % [facility] Work Phone: 1) 222 Platelet mean volume (Bld) [Entitic vol] 9.3 fL 7.4 - 10.4 fL [facility] Work Phone: 1) 222 Platelets (Bld) [#/Vol] 218 10*3/uL 140 - 440 10*3/uL [facility] Work Phone: 1) 222 RBC (Bld) [#/Vol] 5.03 10*6/uL 3.80 - 5.2 0 10*6/uL [facility] Work Phone: [phone] WBC (Bld) [#/Vol] 10.8 10*3/uL High 3.6 - 10.7 10*3/uL [facility] Work Phone: [phone] [facility] Work Phone: [phone] [facility] Work Phone: [phone] HEAD WO CONTRASTOrdered B y: Eligio CrowderMahin on 11-04-2020 [facility] Work Phone: [phone] [facility] Work Phone: [phone] [facility] Work Phone: [phone] Calcium, IonizedOrdered By: Stephen Poole on 11-04-2020 Ionized Ca 4.20 mg/dL Low 4.30 - 5.20 mg/dL [facility] Work Phone: [phone] pH (Bld) 7.36 [pH] [facility] Work Phone: [phone] EKG 12 leadOrdered By: Liu Morrison on 11-04-2020 [facility] Work Phone: [phone] [facility] Work Phone: [phone] [facility] Work Phone: [phone] FibrinogenOrdered By: Andrew Goldman on 11-04-2020 Fibrinogen 258 mg/dL 200 - 400 mg/dL [facility] Work Phone: [phone] MagnesiumOrdered By: Stephen vega on 11-04-2020 Magnesium [Mass/Vol] 3.9 mg/dL High 1.6 - 2 .3 mg/dL [facility] Work Phone: [phone] MagnesiumOrdered By: Madhav Morrison on 11-04-2020 Magnesium [Mass/Vol] 2.3 mg/dL 1.6 - 2 .3 mg/dL [facility] Work Phone: [phone] No Panel InformationOrdered By: Andrew Goldman on 11-04-2020 [facility] Work Phone: [phone] [facility] Work Phone: [phone] No Panel InformationOrdered By: Stephen Poole on 11-04-2020 Interpretation and review of laboratory results Abnormal [facility] Work Phone: [phone] [facility] Work Phone: [phone] [facility] Work Phone: [phone] Interpretation and review of laboratory results Abnormal [facility] Work Phone: [phone] [facility] Work Phone: [phone] [facility] Work Phone: [phone] No Panel InformationOrdered By: Madhav Morrison on 11-04-2020 [facility] Work Phone: [phone] [facility] Work Phone: OPERATIVE REPORTOrdered By: 3m Scanning on 11-04-2020 [facility] Work Phone: [phone] POCT GlucoseOrdered By: Tammy Poole on 11-04-2020 Glucose [Mass/Vol] 104 mg/dL High 70 - 100 mg/dL [facility] Work Phone: [phone] Interpretation and review of laboratory results Abnormal [facility] Work Phone: [phone] [facility] Work Phone: [phone] [facility] Work Phone: [phone] Glucose [Mass/Vol] 69 mg/dL Low 70 - 100 mg/dL [facility] Work Phone: [phone] Interpretation and review of laboratory results Abnormal [facility] Work Phone: [phone] [facility] Work Phone: [phone] [facility] Work Phone: [phone] Glucose [Mass/Vol] 69 mg/dL Low 70 - 100 mg/dL [facility] Work Phone: [phone] Interpretation and review of laboratory results Abnormal [facility] Work Phone: [phone] [facility] Work Phone: [phone] [facility] Work Phone: [phone] Glucose [Mass/Vol] 110 mg/dL High 70 - 100 mg/dL [facility] Work Phone: [phone] Interpretation and review of laboratory results Abnormal [facility] Work Phone: [phone] [facility] Work Phone: [phone] [facility] Work Phone: [phone] Glucose [Mass/Vol] 103 mg/dL High 70 - 100 mg/dL [facility] Work Phone: [phone] Interpretation and review of laboratory results Abnormal [facility] Work Phone: [phone] [facility] Work Phone: [phone] [facility] Work Phone: [phone] POCT GlucoseOrdered By: Priscilla Goldman on 11-04-2020 Glucose [Mass/Vol] 138 mg/dL High 70 - 100 mg/dL [facility] Work Phone: [phone] Interpretation and review of laboratory results Abnormal [facility] Work Phone: [phone] [facility] Work Phone: [phone] [facility] Work Phone: [phone] Glucose [Mass/Vol] 156 mg/dL High 70 - 100 mg/dL [facility] Work Phone: [phone] Interpretation and review of laboratory results Abnormal [facility] Work Phone: [phone] [facility] Work Phone: [phone] [facility] Work Phone: [phone] Glucose [Mass/Vol] 160 mg/dL High 70 - 100 mg/dL [facility] Work Phone: [phone] Interpretation and review of laboratory results Abnormal [facility] Work Phone: [phone] [facility] Work Phone: [phone] [facility] Work Phone: [phone] Glucose [Mass/Vol] 146 mg/dL High 70 - 100 mg/dL [facility] Work Phone: [phone] Interpretation and review of laboratory results Abnormal [facility] Work Phone: [phone] [facility] Work Phone: [phone] [facility] Work Phone: [phone] Glucose [Mass/Vol] 128 mg/dL High 70 - 100 mg/dL [facility] Work Phone: [phone] Interpretation and review of laboratory results Abnormal [facility] Work Phone: [phone] [facility] Work Phone: [phone] [facility] Work Phone: [phone] Glucose [Mass/Vol] 89 mg/dL 70 - 100 mg/dL [facility] Work Phone: [phone] [facility] Work Phone: [phone] [facility] Work Phone: [phone] PREPARE FRESH FROZEN PLASMA, 1 UnitsOrdered By: Stephen Poole on 11-04-2020 Blood product unit ID (Dose) [#] [id number] [facility] Work Phone: [phone] Blood Type 7300 [facility] Work Phone: [phone] Dispense Status Blood Bank transfused [facility] Work Phone: [phone] Expiration Date [id number] [facility] Work Phone: [phone] Code Blood Bank [id number] S [facility] Work Phone: [phone] [facility] Work Phone: [phone] [facility] Work Phone: [phone] Blood product unit ID (Dose) [#] [id number] [facility] Work Phone: [phone] Blood Type 7300 [facility] Work Phone: [phone] Dispense Status Blood Bank transfused [facility] Work Phone: [phone] Expiration Date [id number] [facility] Work Phone: [phone] Product Code Blood Bank [id number] S [facility] Work Phone: [phone] [facility] Work Phone: [phone] [facility] Work Phone: [phone] PREPARE PLATELETS, 2 Product Ordered By: Alphonso Hernandez on 11-04-2020 Blood product unit ID (Dose) [#] [id number] [facility] Work Phone: [phone] Blood product unit ID (Dose) [#] [id number] [facility] Work Phone: [phone] Blood Type 5100 [facility] Work Phone: [phone] Dispense Status Blood Bank transfused [facility] Work Phone: [phone] Expiration Date [id number] [facility] Work Phone: [phone] Expiration Date [id number] [facility] Work Phone: [phone] Product Code Blood Bank [id number] S [facility] Work Phone: [phone] Product Code Blood Bank [id number] S [facility] Work Phone: [phone] [facility] Work Phone: [phone] [facility] Work Phone: [phone] PREPARE RBC (CROSSMATCH), 2 UnitsOrdered By: Alphonso Hernandez on 11-04-2020 Blood product unit ID (Dose) [#] [id number] [facility] Work Phone: [phone] Blood product unit ID (Dose) [#] [id number] [facility] Work Phone: [phone] Blood Type 5100 [facility] Work Phone: [phone] Dispense Status Blood Bank transfused [facility] Work Phone: [phone] Expiration Date [facility] Work Phone: 1 Product Code Blood Bank [id number] [facility] Work Phone: [phone] [facility] Work Phone: [phone] [facility] Work Phone: [phone] PhosphorusOrdered By: Stephen Poole on 11-04-2020 Phosphate [Mass/Vol] 5.0 mg/dL High 2.5 - 4 .5 mg/dL [facility] Work Phone: [phone] PhosphorusOrdered By: Yesi Morrison on 11-04-2020 Phosphate [Mass/Vol] 3.8 mg/dL 2.5 - 4 .5 mg/dL [facility] Work Phone: [phone] Protime/INR & PTTOrdered By: Andrew Goldman on 11-04-2020 aPTT Coag (Bld) [Time] 32.7 s High 20.0 - 30.5 s [facility] Work Phone: [phone] INR Coag (Bld) [Relative time] 1.2 {INR} High [facility] Work Phone: [phone] Interpretation and review of laboratory results Abnormal [facility] Work Phone: [phone] PT Coag (PPP) [Time] 13 s High 9.0 - 1 2.0 s [facility] Work Phone: [phone] TYPE AND SCREENOrdered By: Sharon Hernandez on 11-04-2020 ABO Grouping B [facility] Work Phone: [phone] Rh Type Positive [facility] Work Phone: [phone] [facility] Work Phone: [phone] [facility] Work Phone: [phone] XR CHEST PORTABLEOrdered By: Carmelo Brown on 11-04-2020 [facility] Work Phone: [phone] [facility] Work Phone: [phone] [facility] Work Phone: [phone] BASIC METABOLIC PANELOrdered By: Madhav Morrison on 11-03-2020 Anion gap [Moles/Vol] 8 mmol/L 3 - 13 mmol/L [facility] Work Phone: [phone] Calcium [Mass/Vol] 9.2 mg/dL 8.4 - 10. 4 mg/dL [facility] Work Phone: [phone] Chloride [Moles/Vol] 103 mmol/L 98 - 10 7 mmol/L [facility] Work Phone: [phone] CO2 [Moles/Vol] 23 mmol/L 22 - 30 mmol/L [facility] Work Phone: [phone] Creatinine [Mass/Vol] 0.64 mg/dL 0.52 - 1.25 mg/dL [facility] Work Phone: [phone] EGFR IF NonAfrican [place] 87.2 mL/min >60 [facility] Work Phone: [phone] GFR/1.73 sq M.predicted among blacks MDRD (S/P/Bld) [Vol rate/Area] mL/min/{1.73_m2} >60 mL/min [facility] Work Phone: [phone] Glucose [Mass/Vol] 111 mg/dL High 70 - 100 mg/dL [facility] Work Phone: [phone] Interpretation and review of laboratory results Abnormal [facility] Work Phone: [phone] Potassium [Moles/Vol] 3.6 mmol/L 3.5 - 5.1 mmol/L [facility] Work Phone: [phone] Sodium [Moles/Vol] 134 mmol/L Low 135 - 145 mmol/L [facility] Work Phone: [phone] Urea nitrogen (BldV) [Mass/Vol] 14 mg/dL 7 - 20 mg/dL [facility] Work Phone: [phone] CBC Auto DifferentialOrdered By: Madhav Morrison on 11-03-2020 Absolute Baso # 0.1 10*3/uL 0.0 - 0.2 10*3/uL [facility] Work Phone: [phone] Absolute Eos # 0.1 10*3/uL 0.0 - 0.5 10*3/uL [facility] Work Phone: [phone] Absolute Lymph # 1.1 10*3/uL 1.0 - 4.3 10*3/uL [facility] Work Phone: [phone] Absolute Cecil # 1.5 10*3/uL High 0.0 - 0.8 10*3/uL [facility] Work Phone: [phone] Absolute Neut # 10.1 10*3/uL High 1.8 - 7.0 10*3/uL [facility] Work Phone: [phone] Basophils/100 WBC (Bld) 0.6 % 0.0 - 2.0 % [facility] Work Phone: [phone]) 222 Eosinophils/100 WBC (Bld) 1.0 % 1.0 - 6.0 % [facility] Work Phone: [phone] Granulocytes/100 WBC (Bld) 78.5 % 40.0 - 80.0 % [facility] Work Phone: 1) 222 Hematocrit (Bld) [Volume fraction] 41.5 % 35.0 - 47.0 % [facility] Work Phone: [phone] Hemoglobin.gastrointesti nal spec 1 Ql (Stl) 13.9 g/dL 11.7 - 16.0 g/dL [facility] Work Phone: [phone] Interpretation and review of laboratory results Abnormal [employer] Work Phone: [phone]) 222 Lymphocytes/100 WBC (Bld) 8.5 % Low 20.0 - 40.0 % [facility] Work Phone: [phone] MCH (RBC) [Entitic mass] 29.2 pg 26. 0 - 34.0 pg [facility] Work Phone: ) 222 MCHC (RBC) [Mass/Vol] 33.4 % 32.0 - 36.0 % [facility] Work Phone: [phone] MCV (RBC) [Entitic vol] 87.4 fL 79.0 - 98.0 fL [facility] Work Phone: 1) 222 Monocytes/100 WBC (Bld) 11.4 % High 2.0 - 10.0 % [facility] Work Phone: [phone] Platelet distribution width (Bld) [Ratio] 14.1 % 11.5 - 14.5 % [facility] Work Phone: [phone] Platelet mean volume (Bld) [Entitic vol] 9.3 fL 7.4 - 10.4 fL [facility] Work Phone: 1() 222 Platelets (Bld) [#/Vol] 201 10*3/uL 140 - 440 10*3/uL [facility] Work Phone: 1() 222 RBC (Bld) [#/Vol] 4.75 10*6/uL 3.80 - 5.2 0 10*6/uL [facility] Work Phone: 1() 222 WBC (Bld) [#/Vol] 12.8 10*3/uL High 3.6 - 10.7 10*3/uL [facility] Work Phone: [phone] [facility] Work Phone: [phone] [facility] Work Phone: [phone] EKG 12 leadOrdered By: Liu Morrison on 11-03-2020 [facility] Work Phone: [phone] [facility] Work Phone: [phone] [facility] Work Phone: [phone] [facility] Work Phone: [phone] [facility] Work Phone: [phone] [facility] Work Phone: [phone] EKG 12 leadOrdered By: Cat Boss on 11-03-2020 [facility] Work Phone: [phone] [facility] Work Phone: [phone] [facility] Work Phone: [phone] MagnesiumOrdered By: Madhav Morrison on 11-03-2020 Magnesium [Mass/Vol] 2.0 mg/dL 1.6 - 2 .3 mg/dL [facility] Work Phone: [phone] No Panel InformationOrdered By: Madhav Morrison on 11-03-2020 [facility] Work Phone: [phone] [facility] Work Phone: [phone] PhosphorusOrdered By: Yesi Morrison on 11-03-2020 Phosphate [Mass/Vol] 3.9 mg/dL 2.5 - 4 .5 mg/dL [facility] Work Phone: [phone] APTTOrdered By: Nolan sotelo on 11-02-2020 aPTT Coag (Bld) [Time] 45.7 s High 20.0 - 30.5 s [facility] Work Phone: [phone] Interpretation and review of laboratory results Abnormal [facility] Work Phone: [phone] [facility] Work Phone: 1) [facility] Work Phone: 1) aPTT Coag (Bld) [Time] 46.7 s High 20.0 - 30.5 s [facility] Work Phone: [phone] Interpretation and review of laboratory results Abnormal [facility] Work Phone: [phone]) [phone] [facility] Work Phone: 1) [facility] Work Phone: 1) aPTT Coag (Bld) [Time] 59.8 s High 20.0 - 30.5 s [facility] Work Phone: 1 Interpretation and review of laboratory results Abnormal [facility] Work Phone: 1) [facility] Work Phone: 1 [facility] Work Phone: [phone] BASIC METABOLIC PANELOrdered By: Madhav Morrison on 11-02-2020 Anion gap [Moles/Vol] 1 mmol/L Low 3 - 13 mmol/L [facility] Work Phone: 1 222 Calcium [Mass/Vol] 8.3 mg/dL Low 8.4 - 10. 4 mg/dL [facility] Work Phone: [phone]) 222 Chloride [Moles/Vol] 106 mmol/L 98 - 10 7 mmol/L [facility] Work Phone: 1 222 CO2 [Moles/Vol] 28 mmol/L 22 - 30 mmol/L [facility] Work Phone: [phone] Creatinine [Mass/Vol] 0.61 mg/dL 0.52 - 1.25 mg/dL [facility] Work Phone: [phone] EGFR IF NonAfrican [place] 88.5 mL/min >60 [facility] Work Phone: [phone] GFR/1.73 sq M.predicted among blacks MDRD (S/P/Bld) [Vol rate/Area] mL/min/{1.73_m2} >60 mL/min [facility] Work Phone: 1) 222 Glucose [Mass/Vol] 94 mg/dL 70 - 100 mg/dL [facility] Work Phone: 1) 222 Interpretation and review of laboratory results Abnormal [facility] Work Phone: 1) 222 Potassium [Moles/Vol] 4.1 mmol/L 3.5 - 5.1 mmol/L [facility] Work Phone: 1) 222 Sodium [Moles/Vol] 135 mmol/L 135 - 145 mmol/L [facility] Work Phone: 1) 222 Urea nitrogen (BldV) [Mass/Vol] 16 mg/dL 7 - 20 mg/dL [facility] Work Phone: 1) 222 CBC Auto DifferentialOrdered By: Madhav Morrison on 11-02-2020 Absolute Baso # 0.1 10*3/uL 0.0 - 0.2 10*3/uL [facility] Work Phone: 1) 222 Absolute Eos # 0.1 10*3/uL 0.0 - 0.5 10*3/uL [facility] Work Phone: 1) 222 Absolute Lymph # 1.1 10*3/uL 1.0 - 4.3 10*3/uL [facility] Work Phone: ) 222 Absolute Cecil # 0.9 10*3/uL High 0.0 - 0.8 10*3/uL [facility] Work Phone: ) 222 Absolute Neut # 6.3 10*3/uL 1.8 - 7.0 10*3/uL [facility] Work Phone: 1) 222 Basophils/100 WBC (Bld) 0.8 % 0.0 - 2.0 % [facility] Work Phone: ) 222 Eosinophils/100 WBC (Bld) 0.8 % Low 1.0 - 6.0 % [facility] Work Phone: 1) 222 Granulocytes/100 WBC (Bld) 75.1 % 40.0 - 80.0 % [facility] Work Phone: ) 222 Hematocrit (Bld) [Volume fraction] 35.9 % 35.0 - 47.0 % [facility] Work Phone: [phone] Hemoglobin.gastrointesti nal spec 1 Ql (Stl) 12.1 g/dL 11.7 - 16.0 g/dL [facility] Work Phone: [phone] Interpretation and review of laboratory results Abnormal [facility] Work Phone: [phone] Lymphocytes/100 WBC (Bld) 13.1 % Low 20.0 - 40.0 % [facility] Work Phone: [phone] MCH (RBC) [Entitic mass] 29.1 pg 26. 0 - 34.0 pg [facility] Work Phone: [phone] MCHC (RBC) [Mass/Vol] 33.7 % 32.0 - 36.0 % [facility] Work Phone: [phone] MCV (RBC) [Entitic vol] 86.2 fL 79.0 - 98.0 fL [facility] Work Phone: 1) 222 Monocytes/100 WBC (Bld) 10.2 % High 2.0 - 10.0 % [facility] Work Phone: [phone] Platelet distribution width (Bld) [Ratio] 14.4 % 11.5 - 14.5 % [facility] Work Phone: [phone] Platelet mean volume (Bld) [Entitic vol] 9.7 fL 7.4 - 10.4 fL [facility] Work Phone: [phone] Platelets (Bld) [#/Vol] 182 10*3/uL 140 - 440 10*3/uL [facility] Work Phone: [phone] RBC (Bld) [#/Vol] 4.16 10*6/uL 3.80 - 5.2 0 10*6/uL [facility] Work Phone: [phone] WBC (Bld) [#/Vol] 8.4 10*3/uL 3.6 - 10.7 10*3/uL [facility] Work Phone: [phone] [facility] Work Phone: [phone] [facility] Work Phone: [phone] MagnesiumOrdered By: Madhav Morrison on 11-02-2020 Magnesium [Mass/Vol] 1.9 mg/dL 1.6 - 2 .3 mg/dL [facility] Work Phone: [phone] Panel InformationOrdered By: Madhav Morrison on 11-02-2020 [facility] Work Phone: [phone] [facility] Work Phone: [phone] PhosphorusOrdered By: Yesi Morrison on 11-02-2020 Phosphate [Mass/Vol] 2.6 mg/dL 2.5 - 4 .5 mg/dL [facility] Work Phone: [phone] APTTOrdered By: Nolan sotelo on 11-01-2020 aPTT Coag (Bld) [Time] 47.6 s High 20.0 - 30.5 s [facility] Work Phone: [phone] Interpretation and review of laboratory results Abnormal [facility] Work Phone: [phone] [facility] Work Phone: [phone] [facility] Work Phone: [phone] aPTT Coag (Bld) [Time] 60.1 s High 20.0 - 30.5 s [facility] Work Phone: [phone] Interpretation and review of laboratory results Abnormal [facility] Work Phone: [phone] [facility] Work Phone: [phone]- [facility] Work Phone: [phone] aPTT Coag (Bld) [Time] 46.4 s High 20.0 - 30.5 s [facility] Work Phone: [phone] Interpretation and review of laboratory results Abnormal [facility] Work Phone: [phone] [facility] Work Phone: [phone] [facility] Work Phone: [phone] BASIC METABOLIC PANELOrdered By: Madhav Morrison on 11-01-2020 Anion gap [Moles/Vol] 1 mmol/L Low 3 - 13 mmol/L [facility] Work Phone: [phone] Calcium [Mass/Vol] 8.7 mg/dL 8.4 - 10. 4 mg/dL [facility] Work Phone: [phone] Chloride [Moles/Vol] 105 mmol/L 98 - 10 7 mmol/L [facility] Work Phone: [phone] CO2 [Moles/Vol] 28 mmol/L 22 - 30 mmol/L [facility] Work Phone: [phone] Creatinine [Mass/Vol] 0.66 mg/dL 0.52 - 1.25 mg/dL [facility] Work Phone: [phone] EGFR IF NonAfrican [place] 86.3 mL/min >60 [facility] Work Phone: [phone] GFR/1.73 sq M.predicted among blacks MDRD (S/P/Bld) [Vol rate/Area] mL/min/{1.73_m2} >60 mL/min [facility] Work Phone: [phone] Glucose [Mass/Vol] 98 mg/dL 70 - 100 mg/dL [facility] Work Phone: [phone] Interpretation and review of laboratory results Abnormal [facility] Work Phone: [phone] Potassium [Moles/Vol] 4.0 mmol/L 3.5 - 5.1 mmol/L [facility] Work Phone: [phone] Sodium [Moles/Vol] 134 mmol/L Low 135 - 145 mmol/L [facility] Work Phone: [phone] Urea nitrogen (BldV) [Mass/Vol] 15 mg/dL 7 - 20 mg/dL [facility] Work Phone: [phone] Basic Metabolic Panel w/ Ref kathy to MGOrdered By: Nolan Boss on 11-01-2020 Anion gap [Moles/Vol] 4 mmol/L 3 - 13 mmol/L [facility] Work Phone: [phone] Calcium [Mass/Vol] 8.4 mg/dL 8.4 - 10. 4 mg/dL [facility] Work Phone: [phone] Chloride [Moles/Vol] 108 mmol/L High 98 - 10 7 mmol/L [facility] Work Phone: [phone] 222 CO2 [Moles/Vol] 24 mmol/L 22 - 30 mmol/L [facility] Work Phone: [phone] Creatinine [Mass/Vol] 0.68 mg/dL 0.52 - 1.25 mg/dL [facility] Work Phone: [phone] EGFR IF NonAfrican [place] 85.4 mL/min >60 [facility] Work Phone: 1() 222 GFR/1.73 sq M.predicted among blacks MDRD (S/P/Bld) [Vol rate/Area] mL/min/{1.73_m2} >60 mL/min [facility] Work Phone: [phone] Glucose [Mass/Vol] 114 mg/dL High 70 - 100 mg/dL [facility] Work Phone: 1) 222 Interpretation and review of laboratory results Abnormal [facility] Work Phone: ) 222 Potassium [Moles/Vol] 4.3 mmol/L 3.5 - 5.1 mmol/L [facility] Work Phone: ) 222 Sodium [Moles/Vol] 137 mmol/L 135 - 145 mmol/L [facility] Work Phone: 1) Urea nitrogen (BldV) [Mass/Vol] 14 mg/dL 7 - 20 mg/dL [facility] Work Phone: 1) [facility] Work Phone: 1) [facility] Work Phone: ) CBC Auto DifferentialOrdered By: Madhav Morrison on 11-01-2020 Absolute Baso # 0.0 10*3/uL 0.0 - 0.2 10*3/uL [facility] Work Phone: ) 222 Absolute Eos # 0.0 10*3/uL 0.0 - 0.5 10*3/uL [facility] Work Phone: ) 222 Absolute Lymph # 1.2 10*3/uL 1.0 - 4.3 10*3/uL [facility] Work Phone: ) 222 Absolute Cecil # 1.1 10*3/uL High 0.0 - 0.8 10*3/uL [facility] Work Phone: ) 222 Absolute Neut # 10.0 10*3/uL High 1.8 - 7.0 10*3/uL [facility] Work Phone: [phone] Basophils/100 WBC (Bld) 0.1 % 0.0 - 2.0 % [facility] Work Phone: 1) 222 Eosinophils/100 WBC (Bld) 0.2 % Low 1.0 - 6.0 % [facility] Work Phone: 1) 222 Granulocytes/100 WBC (Bld) 81.2 % High 40.0 - 80.0 % [facility] Work Phone: 1) 222 Hematocrit (Bld) [Volume fraction] 35.0 % 35.0 - 47.0 % [facility] Work Phone: 1) 222 Hemoglobin.gastrointesti nal spec 1 Ql (Stl) 11.4 g/dL Low 11.7 - 16.0 g/dL [facility] Work Phone: [phone] Interpretation and review of laboratory results Abnormal [employer] Work Phone: 1) 222 Lymphocytes/100 WBC (Bld) 9.8 % Low 20.0 - 40.0 % [employer] Work Phone: 1) 222 MCH (RBC) [Entitic mass] 28.8 pg 26. 0 - 34.0 pg [employer] Work Phone: 1) 222 MCHC (RBC) [Mass/Vol] 32.6 % 32.0 - 36.0 % [facility] Work Phone: 1) 222 MCV (RBC) [Entitic vol] 88.3 fL 79.0 - 98.0 fL [employer] Work Phone: 1) 222 Monocytes/100 WBC (Bld) 8.7 % 2.0 - 10.0 % [employer] Work Phone: 1) 222 Platelet distribution width (Bld) [Ratio] 13.9 % 11.5 - 14.5 % [employer] Work Phone: ) 222 Platelet mean volume (Bld) [Entitic vol] 9.5 fL 7.4 - 10.4 fL [facility] Work Phone: 1) 222 Platelets (Bld) [#/Vol] 216 10*3/uL 140 - 440 10*3/uL [facility] Work Phone: 1) 222 RBC (Bld) [#/Vol] 3.97 10*6/uL 3.80 - 5.2 0 10*6/uL [facility] Work Phone: 1) 222 WBC (Bld) [#/Vol] 12.3 10*3/uL High 3.6 - 10.7 10*3/uL [facility] Work Phone: [phone] [facility] Work Phone: 1() 222 [facility] Work Phone: [phone] CBC auto differentialOrdered By: Nolan Boss on 11-01-2020 Absolute Baso # 0.0 10*3/uL 0.0 - 0.2 10*3/uL [facility] Work Phone: 1() 222 Absolute Eos # 0.0 10*3/uL 0.0 - 0.5 10*3/uL [facility] Work Phone: 1() 222 Absolute Lymph # 0.7 10*3/uL Low 1.0 - 4.3 10*3/uL [facility] Work Phone: 1() 222 Absolute Cecil # 1.4 10*3/uL High 0.0 - 0.8 10*3/uL [facility] Work Phone: 1() 222 Absolute Neut # 14.2 10*3/uL High 1.8 - 7.0 10*3/uL [facility] Work Phone: 1() 222 Basophils/100 WBC (Bld) 0.1 % 0.0 - 2.0 % [facility] Work Phone: 1() 222 Eosinophils/100 WBC (Bld) 0.0 % Low 1.0 - 6.0 % [facility] Work Phone: ) 222 Granulocytes/100 WBC (Bld) 87.1 % High 40.0 - 80.0 % [facility] Work Phone: 1() 222 Hematocrit (Bld) [Volume fraction] 35.5 % 35.0 - 47.0 % [facility] Work Phone: [phone] Hemoglobin.gastrointesti nal spec 1 Ql (Stl) 11.7 g/dL 11.7 - 16.0 g/dL [facility] Work Phone: [phone] Interpretation and review of laboratory results Abnormal [facility] Work Phone: [phone] Lymphocytes/100 WBC (Bld) 4.4 % Low 20.0 - 40.0 % [facility] Work Phone: 1() 222 MCH (RBC) [Entitic mass] 28.7 pg 26. 0 - 34.0 pg [facility] Work Phone: [phone] MCHC (RBC) [Mass/Vol] 32.9 % 32.0 - 36.0 % [facility] Work Phone: 1() 222 MCV (RBC) [Entitic vol] 87.4 fL 79.0 - 98.0 fL [facility] Work Phone: 1() 222 Monocytes/100 WBC (Bld) 8.4 % 2.0 - 10.0 % [facility] Work Phone: 1() 222 Platelet distribution width (Bld) [Ratio] 14.1 % 11.5 - 14.5 % [facility] Work Phone: 1( 222 Platelet mean volume (Bld) [Entitic vol] 9.8 fL 7.4 - 10.4 fL [facility] Work Phone: 1() 222 Platelets (Bld) [#/Vol] 230 10*3/uL 140 - 440 10*3/uL [facility] Work Phone: 1() 222 RBC (Bld) [#/Vol] 4.06 10*6/uL 3.80 - 5.2 0 10*6/uL [facility] Work Phone: 1() 222 WBC (Bld) [#/Vol] 16.3 10*3/uL High 3.6 - 10.7 10*3/uL [facility] Work Phone: [phone] [facility] Work Phone: 1() 222 [facility] Work Phone: [phone] Catheterization and angiogra phy procedure details panelOrdered By: Andrew Goldman on 11-01-2020 [facility] Work Phone: [phone] [facility] Work Phone: [phone] [facility] Work Phone: [phone] ECHO Complete 2D W Doppler W ColorOrdered By: Nolan Boss on 11-01-2020 Left ventricular Ejection fraction 65 [facility] Work Phone: [phone] LVEF MODALITY ECHO [facility] Work Phone: [phone] [facility] Work Phone: [phone] [facility] Work Phone: [phone] [facility] Work Phone: [phone] EKG 12 LeadOrdered By: Cat Boss on 11-01-2020 [facility] Work Phone: [phone] [facility] Work Phone: [phone] [facility] Work Phone: [phone] EKG 12 leadOrdered By: Cat Boss on 11-01-2020 [facility] Work Phone: [phone] [facility] Work Phone: [phone] [facility] Work Phone: [phone] Hemoglobin [id number] By: Fr renetta Boss on 11-01-2020 eAG 105 mg/dL [facility] Work Phone: [phone] HbA1c (Bld) [Mass fraction] 5.3 % [facility] Work Phone: [phone] [facility] Work Phone: [phone] [facility] Work Phone: [phone] MagnesiumOrdered By: Madhav Morrison on 11-01-2020 Magnesium [Mass/Vol] 2.1 mg/dL 1.6 - 2 .3 mg/dL [facility] Work Phone: [phone] Panel InformationOrdered By: Madhav Morrison on 11-01-2020 [facility] Work Phone: [phone] [facility] Work Phone: [phone] PhosphorusOrdered By: Yesi Morrison on 11-01-2020 Phosphate [Mass/Vol] 2.7 mg/dL 2.5 - 4 .5 mg/dL [facility] Work Phone: [phone] TroponinOrdered By: Cleve Boss on 11-01-2020 Interpretation and review of laboratory results Abnormal [facility] Work Phone: [phone] Troponin I.cardiac [Mass/Vol] 13.700 ng/mL High 0.000 - 0.034 ng/mL [facility] Work Phone: [phone] [facility] Work Phone: [phone] [facility] Work Phone: [phone] VL DUP CAROTID BILATERALOrde red By: Ama Whipple on 11-01-2020 [facility] Work Phone: [facility] Work Phone: [phone] [facility] Work Phone: VL PRE OP VEIN MAPPINGOrdere d By: Ama Whipple on 11-01-2020 [facility] Work Phone: [phone] [facility] Work Phone: [phone] [facility] Work Phone: [phone] APTTOrdered By: Nolan Michel bti on 10-31-2020 aPTT Coag (Bld) [Time] 121 s Critically high 20 .0 - 30.5 s [facility] Work Phone: aPTT Coag (Bld) [Time] 75 s High 20.0 - 30.5 s [facility] Work Phone: Interpretation and review of laboratory results Abnormal [facility] Work Phone: [phone] [facility] Work Phone: [phone] [facility] Work Phone: [phone] aPTT Coag (Bld) [Time] 26.5 s 20.0 - 30.5 s [facility] Work Phone: Basic Metabolic Panel w/ Ref kathy to MGOrdered By: Nolan Boss on 10-31-2020 Anion gap [Moles/Vol] 6 mmol/L 3 - 13 mmol/L [facility] Work Phone: Calcium [Mass/Vol] 8.8 mg/dL 8.4 - 10. 4 mg/dL [facility] Work Phone: [phone] Chloride [Moles/Vol] 105 mmol/L 98 - 10 7 mmol/L [facility] Work Phone: [phone] CO2 [Moles/Vol] 24 mmol/L 22 - 30 mmol/L [facility] Work Phone: Creatinine [Mass/Vol] 0.51 mg/dL Low 0.52 - 1.25 mg/dL [facility] Work Phone: [phone] EGFR IF NonAfrican [place] >90.0 >60 mL/min [facility] Work Phone: [phone] GFR/1.73 sq M.predicted among blacks MDRD (S/P/Bld) [Vol rate/Area] mL/min/{1.73_m2} >60 mL/min [facility] Work Phone: 1) 222 Glucose [Mass/Vol] 161 mg/dL High 70 - 100 mg/dL [facility] Work Phone: 1) 222 Potassium [Moles/Vol] 3.5 mmol/L 3.5 - 5.1 mmol/L [facility] Work Phone: 1) 222 Sodium [Moles/Vol] 135 mmol/L 135 - 145 mmol/L [facility] Work Phone: [phone] Urea nitrogen (BldV) [Mass/Vol] 8 mg/dL 7 - 20 mg/dL [facility] Work Phone: 1) 222 Bedside SpirometryOrdered By : Ama Whipple on 10-31-2020 [facility] Work Phone: [phone]) [phone] [facility] Work Phone: ) [facility] Work Phone: [phone]) 222 CARDIAC CATH NURSING LOGOrde red By: 3m Scanning on 10-31-2020 [facility] Work Phone: [phone] CBC auto differentialOrdered By: Nolan Boss on 10-31-2020 Absolute Baso # 0.0 10*3/uL 0.0 - 0.2 10*3/uL [facility] Work Phone: 1) 222 Absolute Eos # 0.0 10*3/uL 0.0 - 0.5 10*3/uL [facility] Work Phone: ) 222 Absolute Lymph # 0.5 10*3/uL Low 1.0 - 4.3 10*3/uL [facility] Work Phone: [phone] Absolute Cecil # 0.1 10*3/uL 0.0 - 0.8 10*3/uL [facility] Work Phone: 1) 222 Absolute Neut # 7.4 10*3/uL High 1.8 - 7.0 10*3/uL [facility] Work Phone: [phone] Basophils/100 WBC (Bld) 0.3 % 0.0 - 2.0 % [facility] Work Phone: [phone] Eosinophils/100 WBC (Bld) 0.1 % Low 1.0 - 6.0 % [facility] Work Phone: [phone] Granulocytes/100 WBC (Bld) 92.8 % High 40.0 - 80.0 % [facility] Work Phone: [phone] Hematocrit (Bld) [Volume fraction] 38.2 % 35.0 - 47.0 % [facility] Work Phone: 1) 222 Hemoglobin.gastrointesti nal spec 1 Ql (Stl) 12.9 g/dL 11.7 - 16.0 g/dL [facility] Work Phone: [phone] Interpretation and review of laboratory results Abnormal [employer] Work Phone: 1() 222 Lymphocytes/100 WBC (Bld) 5.8 % Low 20.0 - 40.0 % [facility] Work Phone: 1) 222 MCH (RBC) [Entitic mass] 29.1 pg 26. 0 - 34.0 pg [facility] Work Phone: 1) 222 MCHC (RBC) [Mass/Vol] 33.8 % 32.0 - 36.0 % [facility] Work Phone: 1) 222 MCV (RBC) [Entitic vol] 86.0 fL 79.0 - 98.0 fL [facility] Work Phone: 1() 222 Monocytes/100 WBC (Bld) 1.0 % Low 2.0 - 10.0 % [facility] Work Phone: [phone] Platelet distribution width (Bld) [Ratio] 13.7 % 11.5 - 14.5 % [facility] Work Phone: () 222 Platelet mean volume (Bld) [Entitic vol] 9.6 fL 7.4 - 10.4 fL [facility] Work Phone: 1() 222 Platelets (Bld) [#/Vol] 209 10*3/uL 140 - 440 10*3/uL [facility] Work Phone: () 222 RBC (Bld) [#/Vol] 4.44 10*6/uL 3.80 - 5.2 0 10*6/uL [facility] Work Phone: () 222 WBC (Bld) [#/Vol] 7.9 10*3/uL 3.6 - 10.7 10*3/uL [facility] Work Phone: 1() [facility] Work Phone: 1 [facility] Work Phone: 1( COVID-19Ordered By: mAa Whipple on 10-31-2020 SARS-CoV-2 Not detected Not Detected [facility] Work Phone: 1() [facility] Work Phone: 1 FerritinOrdered By: Cleve Boss on 10-31-2020 Ferritin [Mass/Vol] 87 ng/mL 8 - 252 ng/mL [facility] Work Phone: 1() [facility] Work Phone: 1 [facility] Work Phone: 1 Hemoglobin [id number] By: Fr jackson [facility] [place] on 10-31-2020 eAG 108 mg/dL [facility] Work Phone: 1) HbA1c (Bld) [Mass fraction] 5.4 % [facility] Work Phone: 1 [facility] Work Phone: 1( [facility] Work Phone: 1) Hepatic Function PanelOrdere d By: Nolan Boss on 10-31-2020 Albumin [Mass/Vol] 3.9 g/dL 3.5 - 5.0 g/dL [facility] Work Phone: 1) ALP (Bld) [Catalytic activity/Vol] 109 U/L 38 - 126 U/L [facility] Work Phone: 1) ALT [Catalytic activity/Vol] 32 U/L 0 - 34 U/L [facility] Work Phone: 1) AST [Catalytic activity/Vol] 175 U/L High 15 - 46 U/L [facility] Work Phone: Bilirubin [Mass/Vol] 0.5 mg/dL 0.2 - 1 .3 mg/dL [facility] Work Phone: Bilirubin.indirect [Mass/Vol] 0.0 mg/dL 0.0 - 0.3 mg/dL [facility] Work Phone: [phone] Free PSA/Total PSA [Mass fraction] 6.9 g/dL 6.3 - 8.2 g/dL [facility] Work Phone: [phone] Lipid PanelOrdered By: Cat Boss on 10-31-2020 Cholesterol [Mass/Vol] 176 mg/dL <200 [facility] Work Phone: [phone] Cholesterol in HDL [Mass/Vol] 47 mg/dL 40 - 60 mg/dL [facility] Work Phone: [phone] Cholesterol in LDL [Mass/Vol] 114 mg/dL Abnormal <100 [facility] Work Phone: [phone] Cholesterol.total/Choles terol in HDL [Mass ratio] 4 {ratio} [facility] Work Phone: [phone] Triglyceride [Mass/Vol] 74 mg/dL <150 [facility] Work Phone: [phone] MRSA by PCROrdered By: Andrew Goldman on 10-31-2020 Staph Aureus Sc [facility] Work Phone: [phone] [facility] Work Phone: [phone] [facility] Work Phone: [phone] MagnesiumOrdered By: Megan Boss on 10-31-2020 Magnesium [Mass/Vol] 1.9 mg/dL 1.6 - 2 .3 mg/dL [facility] Work Phone: [phone] [facility] Work Phone: [phone] [facility] Work Phone: [phone] No Panel InformationOrdered By: Ama Whipple on 10-31-2020 Interpretation and review of laboratory results Abnormal [facility] Work Phone: [phone] [facility] Work Phone: [phone] [facility] Work Phone: [phone] No Panel InformationOrdered By: Nolan Boss on 10-31-2020 Interpretation and review of laboratory results Abnormal [facility] Work Phone: [phone] [facility] Work Phone: [phone] [facility] Work Phone: [phone] [facility] Work Phone: [phone] [facility] Work Phone: [phone] Protime-INROrdered By: Cat Boss on 10-31-2020 INR Coag (Bld) [Relative time] 1.1 {INR} [facility] Work Phone: PT Coag (PPP) [Time] 11.6 s 9.0 - 1 2.0 s [facility] Work Phone: 1) TSH without ReflexOrdered By : Ama Whipple on 10-31-2020 TSH Qn 0.425 u[IU]/mL Low 0.465 - 4.680 u[IU]/mL [facility] Work Phone: 1 Interpretation and review of laboratory results Abnormal [facility] Work Phone: ) TSH Qn 0.415 u[IU]/mL Low 0.465 - 4.680 u[IU]/mL [facility] Work Phone: 1) [facility] Work Phone: [facility] Work Phone: TroponinOrdered By: Cleve Boss on 10-31-2020 Interpretation and review of laboratory results Abnormal [facility] Work Phone: 1 222 Troponin I.cardiac [Mass/Vol] 16.900 ng/mL High 0.000 - 0.034 ng/mL [facility] Work Phone: ) [facility] Work Phone: ) [facility] Work Phone: ) Interpretation and review of laboratory results Abnormal [facility] Work Phone: ) Troponin I.cardiac [Mass/Vol] 17.500 ng/mL High 0.000 - 0.034 ng/mL [facility] Work Phone: ) 222 [facility] Work Phone: [phone] [facility] Work Phone: [phone] Interpretation and review of laboratory results Abnormal [facility] Work Phone: ) 222 Troponin I.cardiac [Mass/Vol] 19.900 ng/mL High 0.000 - 0.034 ng/mL [facility] Work Phone: [phone] [facility] Work Phone: ) [facility] Work Phone: UrinalysisOrdered By: Izabel Whipple on 10-31-2020 Appearance (U) Clear Clear NA [facility] Work Phone: [phone] Bacteria, UA Negative Negative /[HPF] [facility] Work Phone: Bilirubin Urine Negative Negative mg/dL [facility] Work Phone: Color (U) Colorless Lt. Yellow NA [facility] Work Phone: Glucose, Ur Normal Normal (<70) mg/dL [facility] Work Phone: Hyaline Casts, UA Negative Negative /[LPF] [facility] Work Phone: Interpretation and review of laboratory results Abnormal [facility] Work Phone: Ketones Ql (U) Negative Negative mg/dL [facility] Work Phone: LEUKOCYTES, UA Negative Negative Monica/uL [facility] Work Phone: [phone] Nitrite, Urine Negative Negative NA [facility] Work Phone: [phone] Occult Blood,Urine 0.03 mg/dL Abnormal Negative [facility] Work Phone: pH (U) 7.0 [pH] [facility] Work Phone: RBC, UA 3-5 Abnormal 0 - 2 /[HPF] [facility] Work Phone: Specific Shepherd, Urine >1.030 Abnormal [facility] Work Phone: Squam Epithel, UA 0-2 3 - 5 /[HPF] [facility] Work Phone: Total Protein, Urine Negative Negativ e mg/dL [facility] Work Phone: Urobilinogen, Urine Normal Normal (0-1) mg/dL [facility] Work Phone: WBC, UA 0-2 0 - 5 /[HPF] [facility] Work Phone: [facility] Work Phone: [facility] Work Phone: [phone] Vital Signs Date Time Vital Sign Value Performing Clinician Facility 03-06-2025 13:48-0400 Body mass index (BMI) [Ratio] 28.02 kg/m2 Opal Booth ADJUNCT INSTRUCTOR IN ECONOMICS - AGENT CONTRACT CLERK Work Phone: [facility] 03-06-2025 13:48-0400 Body weight 78.74 kg Opal Booth ADJUNCT INSTRUCTOR IN ECONOMICS - AGENT CONTRACT CLERK Work Phone: [facility] 03-06-2025 13:48-0400 Diastolic blood pressure 72 mm[Hg] Opal Booth APRN - AGENT CONTRACT CLERK Work Phone: [facility] 03-06-2025 13:48-0400 Heart rate 111 /min Opal Booth APRN - AGENT CONTRACT CLERK Work Phone: [facility] 03-06-2025 13:48-0400 Systolic blood pressure 116 mm[Hg] Opal Booth APRN - AGENT CONTRACT CLERK Work Phone: [facility] 12-20-2024 00:48-0400 Body temperature 97 [degF] Dr. Agatha Matthews MD Work Phone: [facility] 12-20-2024 00:48-0400 Diastolic blood pressure 71 mm[Hg] Dr. Agatha Matthews MD Work Phone: [facility] 12-20-2024 00:48-0400 Heart rate 74 /min Dr. Agatha Matthews MD Work Phone: [facility] 12-20-2024 00:48-0400 Respiratory rate 16 /min Dr. Agatha Matthews MD Work Phone: [facility] 12-20-2024 00:48-0400 SaO2% (BldA) [Mass fraction] 97 % Dr. Agatha Matthews MD Work Phone: [facility] 12-20-2024 00:48-0400 Systolic blood pressure 145 mm[Hg] Dr. Agatha Matthews MD Work Phone: [facility] 12-19-2024 21:10-0400 Body height 170.[address] Agatha Matthews MD Work Phone: [facility] 12-19-2024 21:10-0400 Body mass index (BMI) [Ratio] 27.3 kg/m2 Dr. Agatha Matthews MD Work Phone: [facility] 12-19-2024 21:10-0400 Body weight 79.[address] Agatha Matthews MD Work Phone: [facility] 09-26-2024 11:26-0400 Body height 167.[address] Agatha Matthews MD Work Phone: [facility] 09-26-2024 11:26-0400 Body mass index (BMI) [Ratio] 27.6 kg/m2 Dr. Agatha Matthews MD Work Phone: [facility] 09-26-2024 11:26-0400 Body weight 77.[address] Agatha Matthews MD Work Phone: [facility] 09-26-2024 11:26-0400 Diastolic blood pressure 90 mm[Hg] Dr. Agatha Matthews MD Work Phone: [facility] 09-26-2024 11:26-0400 Heart rate 77 /min Dr. Agatha Matthews MD Work Phone: [facility] 09-26-2024 11:26-0400 Respiratory rate 18 /min Dr. Agatha Matthews MD Work Phone: [facility] 09-26-2024 11:26-0400 SaO2% (BldA) [Mass fraction] 98 % Dr. Agatha Matthews MD Work Phone: [facility] 09-26-2024 11:26-0400 Systolic blood pressure 127 mm[Hg] Dr. Agatha Matthews MD Work Phone: [facility] 08-29-2024 14:02-0400 Body mass index (BMI) [Ratio] 28.21 kg/m2 Opal Booth ADJUNCT INSTRUCTOR IN E[employer]OMICS - AGENT CONTRACT CLERK Work Phone: [facility] 08-29-2024 14:02-0400 Body weight 79.29 kg Opal Michelirk ADJUNCT INSTRUCTOR IN ECONOMICS - AGENT CONTRACT CLERK Work Phone: [facility] [employer] 08-29-2024 14:02-0400 Diastolic blood pressure 73 mm[Hg] Opal Quirk ADJUNCT INSTRUCTOR IN ECONOMICS - AGENT CONTRACT CLERK Work Phone: [facility] [employer] 08-29-2024 14:02-0400 Heart rate 99 /min Opal Quirk ADJUNCT INSTRUCTOR IN ECONOMICS - AGENT CONTRACT CLERK Work Phone: [facility] [employer] 08-29-2024 14:02-0400 Systolic blood pressure 111 mm[Hg] Opal Michelirk ADJUNCT INSTRUCTOR IN ECONOMICS - AGENT CONTRACT CLERK Work Phone: [facility] 03-26-2024 13:51-0500 Body mass index (BMI) [Ratio] 28.61 kg/m2 Benita Lucy ADJUNCT INSTRUCTOR IN ECONOMICS.AGENT CONTRACT CLERK Work Phone: [facility] 03-26-2024 13:51-0500 Body temperature 98.1 [degF] Benita Escondido ADJUNCT INSTRUCTOR IN ECONOMICS.AGENT CONTRACT CLERK Work Phone: [facility] 03-26-2024 13:51-0500 Body weight 80.4 kg Benita Escondido ADJUNCT INSTRUCTOR IN ECONOMICS.AGENT CONTRACT CLERK Work Phone: [facility] 03-26-2024 13:51-0500 Diastolic blood pressure 94 mm[Hg] Benita Escondido ADJUNCT INSTRUCTOR IN ECONOMICS.AGENT CONTRACT CLERK Work Phone: [facility] 03-26-2024 13:51-0500 Heart rate 98 /min Benita Escondido ADJUNCT INSTRUCTOR IN ECONOMICS.AGENT CONTRACT CLERK Work Phone: [facility] 03-26-2024 13:51-0500 Respiratory rate 16 /min Benita Escondido ADJUNCT INSTRUCTOR IN ECONOMICS.AGENT CONTRACT CLERK Work Phone: [facility] 03-26-2024 13:51-0500 SaO2% (BldA) [Mass fraction] 96 % Benita Escondido ADJUNCT INSTRUCTOR IN ECONOMICS.AGENT CONTRACT CLERK Work Phone: [facility] 03-26-2024 13:51-0500 Systolic blood pressure 142 mm[Hg] Benita Escondido ADJUNCT INSTRUCTOR IN ECONOMICS.AGENT CONTRACT CLERK Work Phone: [facility] 01-25-2024 14:05-0400 Body mass index (BMI) [Ratio] 27.73 kg/m2 Opal Michelirelroy ADJUNCT INSTRUCTOR IN ECONOMICS - AGENT CONTRACT CLERK Work Phone: [facility] 01-25-2024 14:05-0400 Body weight 77.93 kg Opal Michelirelroy ADJUNCT INSTRUCTOR IN ECONOMICS - AGENT CONTRACT CLERK Work Phone: [facility] 01-25-2024 14:05-0400 Diastolic blood pressure 79 mm[Hg] Opal Michelirelroy ADJUNCT INSTRUCTOR IN ECONOMICS - AGENT CONTRACT CLERK Work Phone: [facility] 01-25-2024 14:05-0400 Heart rate 112 /min Opal Michelirelroy ADJUNCT INSTRUCTOR IN ECONOMICS - AGENT CONTRACT CLERK Work Phone: [facility] 01-25-2024 14:05-0400 Systolic blood pressure 135 mm[Hg] Opal Booth ADJUNCT INSTRUCTOR IN ECONOMICS - AGENT CONTRACT CLERK Work Phone: [facility] 12-17-2023 15:49-0400 Body mass index (BMI) [Ratio] 27.76 kg/m2 Jd Barger MD Work Phone: [facility] 12-17-2023 15:49-0400 Body temperature 99.1 [degF] Jd Barger MD Work Phone: [facility] 12-17-2023 15:49-0400 Body weight 78.02 kg Jd Barger MD Work Phone: [facility] 12-17-2023 15:49-0400 Diastolic blood pressure 82 mm[Hg] Jd Barger MD Work Phone: [facility] 12-17-2023 15:49-0400 Heart rate 77 /min Jd Barger MD Work Phone: [facility] 12-17-2023 15:49-0400 Respiratory rate 18 /min Jd Barger MD Work Phone: [facility] 12-17-2023 15:49-0400 SaO2% (BldA) [Mass fraction] 98 % Jd Barger MD Work Phone: [facility] 12-17-2023 15:49-0400 Systolic blood pressure 124 mm[Hg] Jd Barger MD Work Phone: [facility] 11-21-2023 01:41-0400 Diastolic blood pressure 78 mm[Hg] oJseph Akhtar MD Work Phone: [facility] 11-21-2023 01:41-0400 Heart rate 71 /min Joseph Akhtar MD Work Phone: [facility] 11-21-2023 01:41-0400 Respiratory rate 18 /min Joseph Akhtar MD Work Phone: [facility] 11-21-2023 01:41-0400 SaO2% (BldA) [Mass fraction] 96 % Joseph Akhtar MD Work Phone: [facility] 11-21-2023 01:41-0400 Systolic blood pressure 152 mm[Hg] Joseph Akhtar MD Work Phone: [facility] 11-20-2023 22:42-0400 Body height 167.6 cm Joseph Akhtar MD Work Phone: [facility] 11-20-2023 22:42-0400 Body mass index (BMI) [Ratio] 27.92 kg/m2 Joseph Akhtar MD Work Phone: [facility] 11-20-2023 22:42-0400 Body temperature 98.1 [degF] Joseph Akhtar MD Work Phone: [facility] 11-20-2023 22:42-0400 Body weight 78.47 kg Joseph Akhtar MD Work Phone: [facility] 07-01-2023 13:05-0500 Body height 167.[address] Jd Barger Work Phone: [facility] 07-01-2023 13:05-0500 Body mass index (BMI) [Ratio] 26.4 kg/m2 Dr. Jd Barger Work Phone: [facility] 07-01-2023 13:05-0500 Body weight 74.[address] Jd Barger Work Phone: [facility] 07-01-2023 13:05-0500 Diastolic blood pressure 70 mm[Hg] Dr. Jd Barger Work Phone: [facility] 07-01-2023 13:05-0500 Heart rate 88 /min Dr. Jd Barger Work Phone: [facility] 07-01-2023 13:05-0500 Respiratory rate 18 /min Dr. Jd Barger Work Phone: [facility] 07-01-2023 13:05-0500 Systolic blood pressure 138 mm[Hg] Dr. Jd Barger Work Phone: [facility] 06-23-2023 15:09-0500 Body height 167.[address] Jd Barger Work Phone: [facility] 06-23-2023 15:09-0500 Body mass index (BMI) [Ratio] 27.9 kg/m2 Dr. Jd Barger Work Phone: [facility] 06-23-2023 15:09-0500 Body weight 78.[address] Jd Barger Work Phone: [facility] 05-10-2023 10:00-0500 Body mass index (BMI) [Ratio] 29.03 kg/m2 Dyllan Galo MD Work Phone: [facility] 05-10-2023 10:00-0500 Body weight 75.52 kg Dyllan Galo MD Work Phone: [facility] 05-10-2023 10:00-0500 Diastolic blood pressure 72 mm[Hg] Dyllan Galo MD Work Phone: [facility] 05-10-2023 10:00-0500 Heart rate 69 /min Dyllan Galo MD Work Phone: [facility] 05-10-2023 10:00-0500 Systolic blood pressure 120 mm[Hg] Dyllan Galo MD Work Phone: [facility] 12-24-2022 13:09-0400 Body height 167.[address] Jd Barger Work Phone: [facility] 12-24-2022 13:09-0400 Body mass index (BMI) [Ratio] 25.4 kg/m2 Dr. Jd Barger Work Phone: [facility] 12-24-2022 13:09-0400 Body weight 71.[address] Jd Barger Work Phone: [facility] 12-24-2022 13:09-0400 Diastolic blood pressure 66 mm[Hg] Dr. Jd Barger Work Phone: [facility] 12-24-2022 13:09-0400 Heart rate 69 /min Dr. Jd Barger Work Phone: [facility] 12-24-2022 13:09-0400 Respiratory rate 16 /min Dr. Jd Barger Work Phone: [facility]. [facility] 12-24-2022 13:09-0400 Systolic blood pressure 135 mm[Hg] Dr. Jd Barger Work Phone: [facility] 11-02-2022 14:59-0400 Body height 161.3 cm Fatuma Johnson MD Work Phone: [facility] 11-02-2022 14:59-0400 Body mass index (BMI) [Ratio] 26.76 kg/m2 Fatuma Johnson MD Work Phone: [facility] 11-02-2022 14:59-0400 Body weight 69.63 kg Fatuma Johnson MD Work Phone: [facility] 11-02-2022 14:59-0400 Diastolic blood pressure 83 mm[Hg] Fatuma Johnson MD Work Phone: [facility] 11-02-2022 14:59-0400 Heart rate 65 /min Fatuma Johnson MD Work Phone: [facility] 11-02-2022 14:59-0400 Systolic blood pressure 139 mm[Hg] Fatuma Johnson MD Work Phone: [facility] 06-25-2022 10:44-0500 Body height 167.[address] Jd Barger Work Phone: [facility] 06-25-2022 10:44-0500 Body mass index (BMI) [Ratio] 24.3 kg/m2 Dr. Jd Barger Work Phone: [facility] 06-25-2022 10:44-0500 Body weight 68.[address] Jd Barger Work Phone: [facility] 06-25-2022 10:44-0500 Diastolic blood pressure 76 mm[Hg] Dr. Jd Barger Work Phone: [facility] 06-25-2022 10:44-0500 Heart rate 73 /min Dr. Jd Barger Work Phone: [facility] 06-25-2022 10:44-0500 Respiratory rate 22 /min Dr. Jd Barger Work Phone: [facility] 06-25-2022 10:44-0500 Systolic blood pressure 122 mm[Hg] Dr. Jd Barger Work Phone: [facility] 06-23-2022 14:23-0500 Body temperature 97.11 [degF] Jd Barger MD Work Phone: [facility] 06-23-2022 14:23-0500 Body weight 69.08 kg Jd Barger MD Work Phone: [facility] 06-23-2022 14:23-0500 Diastolic blood pressure 78 mm[Hg] Jd Barger MD Work Phone: [facility] 06-23-2022 14:23-0500 Heart rate 84 /min Jd Barger MD Work Phone: [facility] 06-23-2022 14:23-0500 Respiratory rate 18 /min Jd Barger MD Work Phone: [facility] 06-23-2022 14:23-0500 SaO2% (BldA) [Mass fraction] 99 % Jd Barger MD Work Phone: [facility] 06-23-2022 14:23-0500 Systolic blood pressure 116 mm[Hg] Jd Barger MD Work Phone: [facility] 06-02-2022 16:41-0500 Body temperature 97.3 [degF] Dr. Jd Barger Work Phone: [facility] 06-02-2022 16:41-0500 Diastolic blood pressure 65 mm[Hg] Dr. Jd Barger Work Phone: [facility] 06-02-2022 16:41-0500 Heart rate 79 /min Dr. Jd Barger Work Phone: [facility] 06-02-2022 16:41-0500 Respiratory rate 18 /min Dr. Jd Barger Work Phone: [facility] 06-02-2022 16:41-0500 SaO2% (BldA) [Mass fraction] 97 % Dr. Jd Barger Work Phone: [facility] 06-02-2022 16:41-0500 Systolic blood pressure 139 mm[Hg] Dr. Jd Barger Work Phone: [facility] 06-02-2022 13:36-0500 Body weight 69.[address] Jd Barger Work Phone: [facility] 06-01-2022 09:14-0500 Heart rate 76 /min Dr. Jd Barger Work Phone: [facility] Work Phone: 06-01-2022 07:55-0500 SaO2% (BldA) [Mass fraction] 100 % Dr. Jd Barger Work Phone: [facility] Work Phone: 06-01-2022 03:00-0500 Body temperature 98 [degF] Dr. Jd Barger Work Phone: [facility] Work Phone: 06-01-2022 03:00-0500 Diastolic blood pressure 70 mm[Hg] Dr. Jd Barger Work Phone: [facility] Work Phone: 06-01-2022 03:00-0500 Respiratory rate 16 /min Dr. Jd Barger Work Phone: [facility] Work Phone: 06-01-2022 03:00-0500 Systolic blood pressure 140 mm[Hg] Dr. Jd Barger Work Phone: [facility] Work Phone: 05-28-2022 10:58-0500 Body height 167.[address] Jd Barger Work Phone: [facility] Work Phone: 05-28-2022 10:58-0500 Body weight 69.[address] Jd Barger Work Phone: [facility] Work Phone: 05-28-2022 08:35-0500 Inhaled oxygen flow rate 97 L/min Dr. Jd Barger Work Phone: [facility] 05-22-2022 19:06-0500 Body mass index (BMI) [Ratio] 24.9 kg/m2 Dr. Jd Barger Work Phone: [facility] 05-22-2022 18:42-0500 Body temperature 97.6 [degF] [facility] Work Phone: 05-22-2022 18:42-0500 Diastolic blood pressure 67 mm[Hg] [facility] Work Phone: 05-22-2022 18:42-0500 Heart rate 77 /min [facility] Work Phone: 05-22-2022 18:42-0500 Respiratory rate 16 /min [facility] Work Phone: 05-22-2022 18:42-0500 SaO2% (BldA) [Mass fraction] 99 % [facility] Work Phone: 05-22-2022 18:42-0500 Systolic blood pressure 152 mm[Hg] [facility] Work Phone: 05-22-2022 12:35-0500 Body height 167.64 cm [facility] Work Phone: 05-22-2022 12:35-0500 Body mass index (BMI) [Ratio] 24.7 kg/m2 [facility] Work Phone: 05-22-2022 12:35-0500 Body weight 69.35 kg [facility] Work Phone: 05-22-2022 11:54-0500 Body temperature 97.81 [degF] Mark Chavez Jr., MD Work Phone: [facility] 05-22-2022 11:54-0500 Body weight 69.04 kg Mark Chavez Jr., MD Work Phone: [facility] 05-22-2022 11:54-0500 Diastolic blood pressure 77 mm[Hg] Mark Chavez Jr., MD Work Phone: [facility] 05-22-2022 11:54-0500 Heart rate 96 /min Mark Chavez Jr., MD Work Phone: [facility] 05-22-2022 11:54-0500 Respiratory rate 16 /min Mark Chavez Jr., MD Work Phone: [facility] 05-22-2022 11:54-0500 SaO2% (BldA) [Mass fraction] 99 % Mark Chavez Jr., MD Work Phone: [facility] 05-22-2022 11:54-0500 Systolic blood pressure 160 mm[Hg] Mark Chavez Jr., MD Work Phone: [facility] 05-14-2022 14:08-0500 Body temperature 98.49 [degF] Margo Marinelli ADJUNCT INSTRUCTOR IN ECONOMICS.PATIENT CARE SECRETARY Work Phone: [facility] 05-14-2022 14:08-0500 Body weight 71.22 kg Margo Marinelli ADJUNCT INSTRUCTOR IN ECONOMICS.PATIENT CARE SECRETARY Work Phone: [facility] 05-14-2022 14:08-0500 Diastolic blood pressure 88 mm[Hg] Margo Marinelli ADJUNCT INSTRUCTOR IN ECONOMICS.PATIENT CARE SECRETARY Work Phone: [facility] 05-14-2022 14:08-0500 Heart rate 76 /min Margo Marinelli ADJUNCT INSTRUCTOR IN ECONOMICS.PATIENT CARE SECRETARY Work Phone: [facility] 05-14-2022 14:08-0500 SaO2% (BldA) [Mass fraction] 97 % Margo Marinelli ADJUNCT INSTRUCTOR IN ECONOMICS.PATIENT CARE SECRETARY Work Phone: [facility] 05-14-2022 14:08-0500 Systolic blood pressure 126 mm[Hg] Margo Marinelli ADJUNCT INSTRUCTOR IN ECONOMICS.PATIENT CARE SECRETARY Work Phone: [facility] 05-02-2022 14:35-0500 Body temperature 98.91 [degF] Shelbie Praisler-Wood ADJUNCT INSTRUCTOR IN ECONOMICS.AGENT CONTRACT CLERK Work Phone: [facility] 05-02-2022 14:35-0500 Body weight 74.39 kg Shelbie Praisler-Wood ADJUNCT INSTRUCTOR IN ECONOMICS.AGENT CONTRACT CLERK Work Phone: [facility] 05-02-2022 14:35-0500 Diastolic blood pressure 82 mm[Hg] Shelbie Praisler-Wood ADJUNCT INSTRUCTOR IN ECONOMICS.AGENT CONTRACT CLERK Work Phone: [facility] 05-02-2022 14:35-0500 Heart rate 73 /min Shelbie Praisler-Wood ADJUNCT INSTRUCTOR IN ECONOMICS.AGENT CONTRACT CLERK Work Phone: [facility] 05-02-2022 14:35-0500 Respiratory rate 18 /min Shelbie Praisler-Wood ADJUNCT INSTRUCTOR IN ECONOMICS.AGENT CONTRACT CLERK Work Phone: [facility] 05-02-2022 14:35-0500 SaO2% (BldA) [Mass fraction] 96 % Shelbie Brar-Wood ADJUNCT INSTRUCTOR IN ECONOMICS.AGENT CONTRACT CLERK Work Phone: [facility] 05-02-2022 14:35-0500 Systolic blood pressure 142 mm[Hg] Shelbiecallum Hollisler-Wood ADJUNCT INSTRUCTOR IN ECONOMICS.AGENT CONTRACT CLERK Work Phone: [facility] 03-30-2022 15:08-0500 Body weight 73.94 kg Margo Marinelli ADJUNCT INSTRUCTOR IN ECONOMICS.PATIENT CARE SECRETARY Work Phone: [facility] 03-30-2022 15:08-0500 Diastolic blood pressure 88 mm[Hg] Margo Marinelli ADJUNCT INSTRUCTOR IN ECONOMICS.PATIENT CARE SECRETARY Work Phone: [facility] 03-30-2022 15:08-0500 Heart rate 84 /min Margo Marinelli ADJUNCT INSTRUCTOR IN ECONOMICS.PATIENT CARE SECRETARY Work Phone: [facility] 03-30-2022 15:08-0500 Respiratory rate 16 /min Margo Marinelli ADJUNCT INSTRUCTOR IN ECONOMICS.PATIENT CARE SECRETARY Work Phone: [facility] 03-30-2022 15:08-0500 Systolic blood pressure 126 mm[Hg] Margo Marinelli ADJUNCT INSTRUCTOR IN ECONOMICS.PATIENT CARE SECRETARY Work Phone: [facility] 12-22-2021 11:39-0400 Body height 167.[address] Jd Barger Work Phone: [facility] Work Phone: 12-22-2021 11:39-0400 Body mass index (BMI) [Ratio] 26.9 kg/m2 Dr. Jd Barger Work Phone: [facility] Work Phone: 12-22-2021 11:39-0400 Body weight 75.[address] Jd Barger Work Phone: [facility] Work Phone: 12-22-2021 11:39-0400 Diastolic blood pressure 77 mm[Hg] Dr. Jd Barger Work Phone: [facility] Work Phone: 12-22-2021 11:39-0400 Heart rate 79 /min Dr. Jd Barger Work Phone: [facility] Work Phone: 12-22-2021 11:39-0400 Respiratory rate 16 /min Dr. Jd Barger Work Phone: [facility] Work Phone: 12-22-2021 11:39-0400 Systolic blood pressure 136 mm[Hg] Dr. Jd Barger Work Phone: [facility] Work Phone: 12-16-2021 17:13-0400 Body weight 74.39 kg Jd Barger MD Work Phone: [facility] 12-16-2021 17:13-0400 Diastolic blood pressure 86 mm[Hg] Jd Barger MD Work Phone: [facility] 12-16-2021 17:13-0400 Heart rate 78 /min Jd Barger MD Work Phone: [facility] 12-16-2021 17:13-0400 SaO2% (BldA) [Mass fraction] 98 % Jd Barger MD Work Phone: [facility] 12-16-2021 17:13-0400 Systolic blood pressure 132 mm[Hg] Jd Barger MD Work Phone: [facility] 11-26-2021 12:25-0400 Body temperature 98.1 [degF] Stephen Reno MD Work Phone: [facility] 11-26-2021 12:25-0400 Body weight 74.84 kg Stephen Reno MD Work Phone: [facility] 11-26-2021 12:25-0400 Diastolic blood pressure 92 mm[Hg] Stephen Reno MD Work Phone: [facility] 11-26-2021 12:25-0400 Heart rate 82 /min Stephen Reno MD Work Phone: [facility] 11-26-2021 12:25-0400 Respiratory rate 24 /min Stephen Reno MD Work Phone: [facility] 11-26-2021 12:25-0400 SaO2% (BldA) [Mass fraction] 95 % Stephen Reno MD Work Phone: [facility] 11-26-2021 12:25-0400 Systolic blood pressure 130 mm[Hg] Stephen Reno MD Work Phone: [facility] 11-04-2021 16:30-0400 Body temperature 98.8 [degF] Cayla Jhaveri APRN.AGENT CONTRACT CLERK Work Phone: [facility] 11-04-2021 16:30-0400 Body weight 75.39 kg Cayla Jhaveri APRN.AGENT CONTRACT CLERK Work Phone: [facility] 11-04-2021 16:30-0400 Diastolic blood pressure 76 mm[Hg] Cayla Jhaveri APRN.AGENT CONTRACT CLERK Work Phone: [facility] 11-04-2021 16:30-0400 Heart rate 80 /min Cayla Jhaveri APRN.AGENT CONTRACT CLERK Work Phone: [facility] 11-04-2021 16:30-0400 Respiratory rate 16 /min Cayla Jhaveri APRN.AGENT CONTRACT CLERK Work Phone: [facility] 11-04-2021 16:30-0400 SaO2% (BldA) [Mass fraction] 97 % Cayla Jhaveri APRN.AGENT CONTRACT CLERK Work Phone: [facility] 11-04-2021 16:30-0400 Systolic blood pressure 122 mm[Hg] Cayla Jhaveri APRN.AGENT CONTRACT CLERK Work Phone: [facility] 08-28-2021 13:44-0400 Body weight 71.22 kg Margo Marinelli APRN.PATIENT CARE SECRETARY Work Phone: [facility] 08-28-2021 13:44-0400 Diastolic blood pressure 82 mm[Hg] Margo Marinelli ADJUNCT INSTRUCTOR IN ECONOMICS.PATIENT CARE SECRETARY Work Phone: [facility] 08-28-2021 13:44-0400 Heart rate 77 /min Margo Marinelli ADJUNCT INSTRUCTOR IN ECONOMICS.PATIENT CARE SECRETARY Work Phone: [facility] 08-28-2021 13:44-0400 SaO2% (BldA) [Mass fraction] 99 % Margo Marinelli ADJUNCT INSTRUCTOR IN ECONOMICS.PATIENT CARE SECRETARY Work Phone: [facility] 08-28-2021 13:44-0400 Systolic blood pressure 128 mm[Hg] Margo Marinelli ADJUNCT INSTRUCTOR IN ECONOMICS.PATIENT CARE SECRETARY Work Phone: [facility] 11-19-2020 15:00-0400 Diastolic blood pressure 79 mm[Hg] Andrew Goldman MD Work Phone: [facility] Work Phone: 11-19-2020 15:00-0400 Heart rate 78 /min Andrew Goldman MD Work Phone: [facility] Work Phone: 11-19-2020 15:00-0400 Systolic blood pressure 142 mm[Hg] Andrew Goldman MD Work Phone: [facility] Work Phone: 11-19-2020 12:00-0400 SaO2% (BldA) [Mass fraction] 100 % Andrew Goldman MD Work Phone: [facility] Work Phone: 11-19-2020 04:00-0400 Respiratory rate 13 /min Andrew Goldman MD Work Phone: [facility] Work Phone: 11-18-2020 20:00-0400 Body temperature 98.4 [degF] Andrew Goldman MD Work Phone: [facility] Work Phone: 11-18-2020 03:00-0400 Body height 167.6 cm Andrew Goldman MD Work Phone: [facility] Work Phone: 11-18-2020 03:00-0400 Body mass index (BMI) [Ratio] 22.31 kg/m2 Andrew Goldman MD Work Phone: [facility] Work Phone: 11-18-2020 03:00-0400 Body weight 62.69 kg Andrew Goldman MD Work Phone: [facility] Work Phone: Encounters Encounter Date Encounter Type Care Provider Facility Start: 04-03-2025 End: 04-03-2025 ambulatory Chalon Linette Facility[facility] Start: 03-29-2025 ambulatory Chalon Linette Facility:[facility] Start: 03-16-2025 End: 03-16-2025 ambulatory Agatha Matthews Facility:[facility] Start: 03-09-2025 End: 03-09-2025 ambulatory Chalon Linette Facility: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 Agatha Matthews MD Work Phone: -[facility]atory [place] Start: 02-15-2025 End: 02-15-2025 Patient encounter procedure Raven Garcia PA -[facility] [place] Work Phone: Start: 02-15-2025 End: 02-15-2025 ambulatory Chalon Linette Facility:[facility] Start: 01-18-2025 End: 01-18-[address] Agatha Matthews MD Work Phone: -Ultrasound [facility] Start: 01-18-2025 End: 01-18-2025 Patient encounter procedure Raven Garcia PA -[facility]tras[facility] Work Phone: Start: 01-18-2025 End: 01-18-2025 ambulatory Bill Corado Facility:[facility] Start: 12-19-2024 End: 12-20-2024 Emergency department patient visit Dr. Agatha Matthews MD Work Phone: -Emergency Department Work Phone: Start: 11-01-2024 End: 11-01-2024 Patient encounter procedure Raven KIM -[facility] Work Phone: Start: 11-01-2024 End: 11-01-[address] Agatha Matthews MD Work Phone: [facility] Work Phone: Start: 11-01-2024 End: 11-01-2024 ambulatory Agatha Smithlay Facility:[facility] Start: 10-06-2024 Non-patient / Non-visit Dr. Anant Sanabria MD -[facility] Work Phone: Start: 10-06-2024 End: 10-06-[address] Agatha Matthews MD Work Phone: [facility] Work Phone: Start: 10-06-2024 End: 10-06-2024 Patient encounter procedure Opal DICKINSON -Pulmonary Services/Neurology Work Phone: Start: 10-06-2024 End: 10-06-2024 ambulatory Agatha Smithlay Facility:[facility] Start: 09-26-2024 End: 09-26-2024 Patient encounter procedure Opal DICKINSON -[facility] Work Phone: Start: 09-26-2024 End: 09-26-2024 ambulatory Agatha Matthews Facility:[facility] Start: 09-04-2024 Non-patient / Non-visit Padma Donovan -[facility] Work Phone: Start: 09-04-2024 ambulatory Agatha Matthews Facility :[facility] Start: 08-29-2024 End: 08-29-2024 Office outpatient visit 40 minutes Opal Ahuja CNP Work Phone: [facility] [place] Comment on above: Mixed Alzheimer's an d vascular dementia (HCC) (Primary Dx) Start: 08-29-2024 End: 08-29-2024 ambulatory OPAL BOOTH [facility] Start: 06-12-2024 End: 06-12-2024 ambulatory Agatha Isabel Facility:[facility] Start: 06-08-2024 End: 06-08-2024 Refill Jd Barger MD Work Phone: [facility] [place] Comment on above: Refill Request Start: 05-31-2024 End: 05-31-2024 ambulatory Agatha Isabel Facility:[facility] Start: 03-26-2024 End: 03-26-2024 ambulatory AGATHA G ISABEL Facility:[facility] Start: 03-26-2024 End: 03-26-2024 Patient encounter procedure Benita Lima APRN.AGENT CONTRACT CLERK Work Phone: [facility] Comment on above: Skin yeast infection (Primary Dx) Start: 03-10-2024 End: 03-13-2024 Refill Jd Barger MD Work Phone: [facility] Comment on above: Refill Request Start: 02-14-2024 End: 02-15-2024 Refill Jd Barger MD Work Phone: [facility] Comment on above: Refill Request Start: 01-25-2024 End: 01-25-2024 Office outpatient visit 40 minutes Opal Marilunisreen LUCIANO Ahuja AGENT CONTRACT CLERK Work Phone: [facility] Comment on above: Mixed Alzheimer's an d vascular dementia (HCC) (Primary Dx) Start: 01-05-2024 Refill Jd lira MD Work Phone: [facility] [place] Comment on above: Refill Request Start: 12-27-2023 Refill Jd lira MD Work Phone: [facility] [place] Comment on above: Refill Request Start: 12-17-2023 End: 12-17-2023 Office outpatient visit 15 minutes Jd Barger MD Work Phone: [facility] Comment on above: Essential hypertensi on (Primary Dx); Left homonymous hemianopsia; Mixed Alzheimer's and vascular dementia (HCC) Start: 12-17-2023 End: 12-17-2023 ambulatory JD BARGER Facility:[facility] Start: 11-30-2023 Telephone encounter Jd thibodeaux MD Work Phone: [facility] [place] Comment on above: Patient Update (poss ible continued UTI); Request Outside Medical Records Start: 11-20-2023 End: 11-20-2023 Subsequent hospital visit by physician [facility] Portable [facility] Miguel X-ray Comment on above: Arrived Start: 11-20-2023 End: 11-21-2023 Emergency department patient visit Joseph Akhtar MD Work Phone: [facility] Emergency [facility] Comment on above: Altered mental statu s, unspecified altered mental status type (Primary Dx); Urinary tract infection without hematuria, site unspecified Start: 11-04-2023 Refill Fatuma Johnson MD Work Phone: [facility] Comment on above: Mixed Alzheimer's an d vascular dementia (HCC) Start: 08-02-2023 Refill Jd lira MD Work Phone: [facility] Comment on above: Refill Request Start: 07-29-2023 End: 07-29-[address] Jd Barger Work Phone: [facility] Work Phone: Start: 07-29-2023 End: 07-29-[address] Jd Barger Work Phone: [facility] Work Phone: Start: 07-01-2023 End: 07-01-[address] Jd Barger Work Phone: [facility] Work Phone: Start: 06-28-2023 Telephone encounter Fatuma lira MD Work Phone: [facility] Comment on above: Appointment Request Start: 06-23-2023 End: 06-23-[address] Jd Barger Work Phone: [facility] Work Phone: Start: 06-23-2023 End: 06-23-[address] Jd Barger Work Phone: [facility] Work Phone: Start: 06-07-2023 Telephone encounter Fatuma lira MD Work Phone: [facility] Comment on above: Appointment Start: 05-10-2023 End: 05-10-2023 Office outpatient visit 40 minutes Fatuma Johnson MD Work Phone: [facility] Comment on above: Mixed Alzheimer's an d vascular dementia (HCC) (Primary Dx); Weight gain; Debility; Medication noncompliance due to cognitive impairment Start: 03-15-2023 Refill Jd lira MD Work Phone: [facility] Comment on above: Refill Request Start: 02-22-2023 Refill Fatuma Johnson MD Work Phone: [facility] Comment on above: Mixed Alzheimer's an d vascular dementia (HCC) Start: 12-24-2022 Telephone encounter Jd thibodeaux MD Work Phone: [facility] Comment on above: Faxed to [facility] Start: 12-24-2022 End: 12-24-[address] 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 Jd Barger Work Phone: [facility] Work Phone: Start: 10-15-2022 End: 10-15-[address] Jd Barger Work Phone: [facility]-Physical Therapy Work Phone: Start: 09-23-2022 Refill Jd lira MD Work Phone: [facility] Comment on above: Refill Request Start: 09-16-2022 Refill Jd lira MD Work Phone: [facility] Comment on above: Refill Request Start: 09-09-2022 End: 09-09-[address] Jd Barger Work Phone: [facility] Work Phone: Start: 09-09-2022 End: 09-09-[address] Jd Barger Work Phone: [facility] Start: 09-02-2022 End: 09-02-[address] Jd Barger Work Phone: [facility]-Laboratory Start: 08-31-2022 Telephone encounter Suri Adelia velazco APRNMarcAGENT CONTRACT CLERK Work Phone: [facility] Comment on above: Results Start: 08-31-[address] Jd Barger Work Phone: [facility] Therapy Start: 08-28-2022 End: 08-28-[address] Jd Barger Work Phone: [facility] Work Phone: Start: 08-28-2022 End: 08-28-[address] Jd Barger Work Phone: [facility] Start: 08-17-2022 Telephone encounter Margo li ADJUNCT INSTRUCTOR IN ECONOMICS.PATIENT CARE SECRETARY Work Phone: [facility] Comment on above: Results Start: 08-11-2022 End: 08-11-2022 Subsequent hospital visit by physician [facility] Work Phone: Radiology Comment on above: Elevated liver enzym es [R74.8] Start: 08-06-[address] Jd Barger Work Phone: [facility]-Physical Therapy Start: 08-05-2022 Telephone encounter Jd thibodeaux MD Work Phone: [facility] Comment on above: Results Start: 08-04-2022 End: 08-04-[address] Jd Barger Work Phone: [facility] Work Phone: Start: 08-04-2022 End: 08-04-[address] Jd Barger Work Phone: [facility] Start: 07-27-2022 Telephone encounter Jd thibodeaux MD Work Phone: [facility] Comment on above: Patient Update Start: 07-11-2022 Telephone encounter Molly Leroy [address] Comment on above: Patient Question Start: 07-02-2022 Telephone encounter Jd thibodeaux MD Work Phone: [facility] Comment on above: Therapy Order Reques t Start: 06-25-2022 End: 06-25-[address] Jd Barger Work Phone: [facility] Start: 06-23-2022 End: 06-23-2022 Office outpatient visit 40 minutes Jd Barger MD Work Phone: [facility] [place] Comment on above: Acute colitis (Prima ry Dx); Pancreatic lesion; Infection in abdomen (HCC) Start: 06-11-2022 Telephone encounter Jd thibodeaux MD Work Phone: [facility] [place] Comment on above: Patient Update Start: 06-10-2022 Telephone encounter Jd thibodeaux MD Work Phone: [facility] [place] Comment on above: OT plan of care Start: 06-05-2022 Telephone encounter Jd thibodeaux MD Work Phone: [facility] [place] Comment on above: Medication Question Start: 06-04-2022 Telephone encounter Jd thibodeaux MD Work Phone: [facility] [place] Comment on above: HH Physical Therapy Plan of Care Start: 06-03-2022 Telephone encounter Jd thibodeaux MD Work Phone: [facility] [place] Comment on above: Follow HH orders Start: 06-02-2022 Non-patient / Non-visit Dr. Doreen Barger Work Phone: [facility] Start: 06-01-2022 Non-patient / Non-visit Dr. Doreen Barger Work Phone: [facility] Start: 05-31-2022 Non-patient / Non-visit Dr. Doreen Barger Work Phone: [facility] Start: 05-30-2022 Non-patient / Non-visit Dr. Doreen Barger Work Phone: [facility] Start: 05-29-2022 Non-patient / Non-visit Dr. Doreen Barger Work Phone: [facility] Start: 05-28-2022 Non-patient / Non-visit Dr. Doreen Barger Work Phone: [facility] Start: 05-27-2022 Non-patient / Non-visit Dr. Doreen Barger Work Phone: [facility] Start: 05-26-2022 Non-patient / Non-visit Dr. Doreen Barger Work Phone: [facility] Start: 05-25-2022 Non-patient / Non-visit Dr. Doreen Barger Work Phone: [facility] Start: 05-24-2022 Non-patient / Non-visit Dr. Doreen Barger Work Phone: [facility] Start: 05-23-2022 Non-patient / Non-visit Dr. Doreen Barger Work Phone: [facility] Start: 05-22-2022 Non-patient / Non-visit Dr. Doreen Barger Work Phone: [facility] Start: 05-22-2022 End: 06-02-2022 [facility] Start: 05-22-2022 observation encounter [facility] Work Phone: Start: 05-22-2022 End: 05-22-2022 Patient encounter procedure Mark Chavez MD Work Phone: Neurology Comment on above: Recurrent episodes o f unresponsiveness (Primary Dx); History of CVA (cerebrovascular accident); Left homonymous hemianopsia; Stenosis of intracranial vessel; Cognitive impairment, mild, so stated; Recurrent vomiting; Lower abdominal pain Start: 05-21-2022 ambulatory Margo Marinelli ADJUNCT INSTRUCTOR IN ECONOMICS.PATIENT CARE SECRETARY Work Phone: [facility] Start: 05-21-2022 Follow-up encounter Margo li ADJUNCT INSTRUCTOR IN ECONOMICS.PATIENT CARE SECRETARY Work Phone: [facility] Comment on above: Follow-up from Carlota Rueda's appointment on 05/14/22 Start: 05-14-2022 End: 05-14-2022 Subsequent hospital visit by physician Omer [facility] Work Phone: Radiology Comment on above: Acute cough [R05.1] Start: 05-14-2022 End: 05-14-2022 Office outpatient visit 15 minutes Margo Marinelli APRN.PATIENT CARE SECRETARY Work Phone: [facility] [place] Comment on above: Acute cough (Primary Dx); Viral URI with cough; SOBOE (shortness of breath on exertion); Nausea Start: 05-03-2022 Telephone encounter Chapinsj gutierrez ADJUNCT INSTRUCTOR IN ECONOMICS.AGENT CONTRACT CLERK Work Phone: [facility] Comment on above: Results Start: 05-02-2022 End: 05-02-2022 Patient encounter procedure Shelbie NewmanAntonina ADJUNCT INSTRUCTOR IN ECONOMICS.AGENT CONTRACT CLERK Work Phone: [facility] Comment on above: Viral URI with cough (Primary Dx); Acute conjunctivitis of both eyes, unspecified acute conjunctivitis type Start: 04-22-2022 End: 04-22-2022 Subsequent hospital visit by physician [facility] Work Phone: Radiology Comment on above: Canceled (Pt cx: Nina worley in Condition, Sick) Start: 04-20-2022 Telephone encounter Margo li ADJUNCT INSTRUCTOR IN ECONOMICS.PATIENT CARE SECRETARY Work Phone: [facility] Comment on above: Results Start: 03-30-2022 End: 03-30-2022 Patient encounter procedure Margo Marinelli APRN.PATIENT CARE SECRETARY Work Phone: [facility] Comment on above: Elevated liver enzym es (Primary Dx); Need for COVID-19 vaccine; Osteoporosis, unspecified osteoporosis type, unspecified pathological fracture presence; Encounter for immunization Start: 03-19-2022 Telephone encounter Jd thibodeaux MD Work Phone: [facility] [place] Comment on above: Patient Update Start: 03-16-2022 ambulatory Jd Chavez [facility] Start: 03-16-2022 End: 03-16-2022 Subsequent hospital visit by physician Fatuma Johnson MD Work Phone: [facility] Start: 03-02-2022 ambulatory FATUMA Chavez [facility] Start: 02-18-2022 Refill Jd lira MD Work Phone: [facility] Comment on above: Refill Request Start: 12-22-2021 End: 12-22-[address] Jd Barger Work Phone: [facility] Start: 12-22-2021 End: 12-22-[address] Jd Barger Work Phone: [facility] Start: 12-16-2021 End: 12-16-2021 Office outpatient visit 25 minutes Jd Brager MD Work Phone: [facility] [place] Comment on above: Acquired hypothyroid ism (Primary Dx); Essential hypertension; History of CVA (cerebrovascular accident); Anxiety and depression; Gastroesophageal reflux disease without esophagitis; Encounter for long-term current use of medication Start: 11-28-2021 Telephone encounter Jd thibodeaux MD Work Phone: [facility] [place] Comment on above: UTI Start: 11-27-2021 Telephone encounter Jd thibodeaux MD Work Phone: [facility] [place] Comment on above: Patient Update; Orde rs Start: 11-26-2021 Telephone encounter Jd thibodeaux MD Work Phone: [facility] [place] Comment on above: Patient Update; Orde rs Start: 11-26-2021 End: 11-26-2021 Patient encounter procedure Stephen Reno MD Work Phone: [facility] Comment on above: Frequent urination ( Primary Dx); Hallucination Start: 11-04-2021 End: 11-04-2021 Subsequent hospital visit by physician [facility] Work Phone: Radiology Comment on above: Left ankle swelling [M25.472] Start: 11-04-2021 End: 11-04-2021 Patient encounter procedure Cayla Jhaveri APRN.CNP Work Phone: [facility] Comment on above: Left ankle swelling (Primary Dx); Foot swelling Start: 10-15-2021 End: 10-15-2021 ambulatory Paty Salazar PT Work Phone: [facility] Comment on above: Leg weakness, bilate ral (Primary Dx); History of CVA (cerebrovascular accident); General weakness; Gait difficulty Start: 10-08-2021 End: 10-08-2021 ambulatory Paty Salazar PT Work Phone: [facility] Comment on above: Leg weakness, bilate ral (Primary Dx); History of CVA (cerebrovascular accident); General weakness; Gait difficulty Start: 10-01-2021 Refill Jd lira MD Work Phone: [facility] [place] Comment on above: Prescription Refills Start: 09-25-2021 End: 09-25-2021 ambulatory Paty Salazar PT Work Phone: [facility] Comment on above: Leg weakness, bilate ral (Primary Dx); History of CVA (cerebrovascular accident); General weakness; Gait difficulty Start: 09-19-2021 Refill Jd lira MD Work Phone: [facility] [place] Comment on above: Refill Request; Colette ent Update Start: 09-12-2021 Refill Jd lira MD Work Phone: [facility] [place] Comment on above: Refill Request Start: 09-11-2021 End: 09-11-2021 ambulatory Paty Salazar PT Work Phone: [facility] Comment on above: Leg weakness, bilate ral (Primary Dx); History of CVA (cerebrovascular accident); General weakness; Gait difficulty Start: 09-01-2021 Telephone encounter Margo li APRN.PATIENT CARE SECRETARY Work Phone: [facility] [place] Comment on above: Results, Lab Start: 08-29-2021 ambulatory Jaspreet Fernandes MD Work Phone: [facility] Comment on above: Question re medicati on for Lavelle Rueda Start: 08-28-2021 End: 08-28-2021 Patient encounter procedure Margo Marinelli APRN.PATIENT CARE SECRETARY Work Phone: [facility] Comment on above: Pure hypercholestero lemia (Primary Dx); Gait difficulty; S/P CABG x 4; NSTEMI (non-ST elevated myocardial infarction) (HCC); Coronary artery disease without angina pectoris, unspecified vessel or lesion type, unspecified whether [place] or transplanted heart; History of CVA (cerebrovascular accident); Left homonymous hemianopsia Start: 08-21-2021 Refill Jd lira MD Work Phone: [facility] [place] Comment on above: Refill Request Start: 08-18-2021 Refill Jd lira MD Work Phone: [facility] [place] Comment on above: Refill Request Start: 10-31-2020 End: 11-19-2020 Evaluation and management of inpatient Andrew Goldman MD Work Phone: [facility] Procedures Date Procedure Procedure Detail Performing Clinician Start: 01-18-2025 Ultrasound elastography of liver Dr[address] Nitesh Matthews MD Work Phone: Start: 01-25-2024 Adult depression screening assessment Opal Booth ADJUNCT INSTRUCTOR IN ECONOMICS - AGENT CONTRACT CLERK Work Phone: Start: 11-21-2023 Urinalysis complete panel - Urine Roman Akhtar MD Work Phone: Start: 11-21-2023 Urnls dip stick/tablet reagent auto microscopy Joseph Akhtar MD Work Phone: Start: 11-21-2023 Radiologic exam chest single view Roman Akhtar MD Work Phone: Start: 11-20-2023 Comprehensive metabolic panel Joseph Akhtar MD Work Phone: Start: 11-20-2023 Ecg routine ecg w/least 12 lds trcg only w/o i&r Joseph Akhtar MD Work Phone: Start: 07-29-2023 Computed tomography of abdomen and pelvis with contrast Dr. Jd Barger Work Phone: Start: 05-10-2023 Adult depression screening assessment Dyllan Galo MD Work Phone: Start: 11-23-2022 Thyrotropin [Units/volume] in Serum or Plasma Fatuma Johnson MD Work Phone: Start: 11-02-2022 Adult depression screening assessment Fatuma Johnson MD Work Phone: Start: 09-09-[address] Jd Barger Work Phone: Start: 08-11-2022 Dxa bone density study 1/> sites axial giancarloel Margo Marinelli ADJUNCT INSTRUCTOR IN ECONOMICS.PATIENT CARE SECRETARY Work Phone: Start: 08-04-2022 Computed tomography of abdomen and pelvis with contrast Dr. Jd Barger Work Phone: Start: 05-23-2022 CT of abdomen with contrast Dr. Jd thibodeaux Work Phone: Start: 05-22-2022 Computed tomography of abdomen and pelvis with intravenous contrast Start: 05-14-2022 Radiologic exam chest 2 views Margo li ADJUNCT INSTRUCTOR IN ECONOMICS.PATIENT CARE SECRETARY Work Phone: Start: 03-16-2022 Thyrotropin [Units/volume] in Serum or Plasma Fatuma Johnson MD Work Phone: Start: 11-04-2021 Radex ankle complete minimum 3 views Cayla Jhaveri ADJUNCT INSTRUCTOR IN ECONOMICS.AGENT CONTRACT CLERK Work Phone: Start: 08-28-2021 Lipid 1996 panel - Serum or Plasma Opal Booth ADJUNCT INSTRUCTOR IN ECONOMICS - AGENT CONTRACT CLERK Work Phone: Start: 05-29-2021 History of coronary artery bypass grafting S/P CABG x 4 Jd Barger MD Work Phone: Start: 11-18-2020 COVID-19 Sally Fajardo ADJUNCT INSTRUCTOR IN ECONOMICS - AGENT CONTRACT CLERK Work Phone: Start: 11-18-2020 Echo tthrc r-t 2d w/wom-mode compl spec&colr d Porfirio Bridges DO Work Phone: Start: 11-18-2020 Ecg routine ecg w/least 12 lds w/i&r Alphonso Hernandez ADJUNCT INSTRUCTOR IN ECONOMICS - AGENT CONTRACT CLERK Work Phone: Start: 11-18-2020 Lipid 1996 panel - Serum or Plasma Fatuma Johnson MD Work Phone: Start: 11-18-2020 Lipid panel Porfirio Piperly Work Phone: Start: 11-18-2020 End: 11-18-2020 Hemoglobin glycosylated a1c Porfirio Bridges DO Work Phone: Start: 11-17-2020 Speech and language therapy regime Porfirio Bridges DO Work Phone: Start: 11-17-2020 Ct head/brain w/o contrast material Porfirio Piperly Work Phone: Start: 11-17-2020 Ecg routine ecg w/least 12 lds w/i&r Porfirio Bridges DO Work Phone: Start: 11-15-2020 Radiologic exam chest single view Jd Montez Stephnaie ADJUNCT INSTRUCTOR IN ECONOMICS - AGENT CONTRACT CLERK Work Phone: Start: 11-15-2020 Basic metabolic panel calcium total Stephen Poole MD Work Phone: Start: 11-15-2020 Blood count complete automated Carmelo Brown ADJUNCT INSTRUCTOR IN ECONOMICS - AGENT CONTRACT CLERK Work Phone: Start: 11-14-2020 History of coronary artery bypass grafting Andrew Goldman MD Work Phone: Start: 11-14-2020 Gluc bld gluc mntr dev cleared fda spec home use Stephen Poole MD Work Phone: Start: 11-14-2020 Radiologic exam chest single view Jd Montez Stephanie ADJUNCT INSTRUCTOR IN ECONOMICS - AGENT CONTRACT CLERK Work Phone: Start: 11-14-2020 Basic metabolic panel calcium total Carmelo Brown ADJUNCT INSTRUCTOR IN ECONOMICS - AGENT CONTRACT CLERK Work Phone: Start: 11-13-2020 COVID-19 Ama Whipple ADJUNCT INSTRUCTOR IN ECONOMICS - AGENT CONTRACT CLERK Work Phone: Start: 11-13-2020 Radiologic exam chest single view Jd Montez Stephanie ADJUNCT INSTRUCTOR IN ECONOMICS - AGENT CONTRACT CLERK Work Phone: Start: 11-12-2020 Basic metabolic panel calcium total Carmelo R Stephanie ADJUNCT INSTRUCTOR IN ECONOMICS - AGENT CONTRACT CLERK Work Phone: Start: 11-12-2020 Ecg routine ecg w/least 12 lds w/i&r Rossy Garland MD Work Phone: Start: 11-12-2020 Radiologic exam chest single view Jd Montez Stephanie ADJUNCT INSTRUCTOR IN ECONOMICS - AGENT CONTRACT CLERK Work Phone: Start: 11-12-2020 Basic metabolic panel calcium total Carmelo Montez Stephanie ADJUNCT INSTRUCTOR IN ECONOMICS - AGENT CONTRACT CLERK Work Phone: Start: 11-11-2020 Ecg routine ecg w/least 12 lds w/i&r Eligio Gandara MD Work Phone: Start: 11-11-2020 Radiologic exam chest single view Jd Montez Stephanie ADJUNCT INSTRUCTOR IN ECONOMICS - AGENT CONTRACT CLERK Work Phone: Start: 11-11-2020 End: 11-11-2020 ADD ON LAB TEST Eligio Gandara MD Work Phone: Start: 11-11-2020 Basic metabolic panel calcium total Carmelo Montez Stephanie ADJUNCT INSTRUCTOR IN ECONOMICS - AGENT CONTRACT CLERK Work Phone: Start: 11-11-2020 Ecg routine ecg w/least 12 lds w/i&r Madhav Morrison MD Work Phone: Start: 11-10-2020 End: 11-10-2020 Comprehensive metabolic panel Stephen montez MD Work Phone: Start: 11-10-2020 Ecg routine ecg w/least 12 lds w/i&r Carmelo Montez Stephanie ADJUNCT INSTRUCTOR IN ECONOMICS - AGENT CONTRACT CLERK Work Phone: Start: 11-10-2020 Ecg routine ecg w/least 12 lds w/i&r Carmelo R Stephanie ADJUNCT INSTRUCTOR IN ECONOMICS - AGENT CONTRACT CLERK Work Phone: Start: 11-10-2020 Basic metabolic panel calcium total Carmelo Montez Stephanie ADJUNCT INSTRUCTOR IN ECONOMICS - AGENT CONTRACT CLERK Work Phone: Start: 11-10-2020 Radiologic exam chest single view Jd og R Stephanie ADJUNCT INSTRUCTOR IN ECONOMICS - AGENT CONTRACT CLERK Work Phone: Start: 11-10-2020 Ecg routine ecg w/least 12 lds w/i&r Madhav Morrison MD Work Phone: Start: 11-10-2020 Basic metabolic panel calcium total Carmelo Brown ADJUNCT INSTRUCTOR IN ECONOMICS - AGENT CONTRACT CLERK Work Phone: Start: 11-09-2020 End: 11-09-2020 Ecg routine ecg w/least 12 lds w/i&r Madhav Morrison MD Work Phone: Start: 11-09-2020 Radiologic exam chest single view Jd Brown ADJUNCT INSTRUCTOR IN ECONOMICS - AGENT CONTRACT CLERK Work Phone: Start: 11-09-2020 Basic metabolic panel calcium total Carmelo Brown ADJUNCT INSTRUCTOR IN ECONOMICS - AGENT CONTRACT CLERK Work Phone: Start: 11-08-2020 Radiologic exam swallow function contrast study Sally Fajardo ADJUNCT INSTRUCTOR IN ECONOMICS - AGENT CONTRACT CLERK Work Phone: Start: 11-08-2020 SOFT SUGAR CUTTER MODIFIED BARIUM SWALLOW STUDY (MBS) Sally Fajardo ADJUNCT INSTRUCTOR IN ECONOMICS - AGENT CONTRACT CLERK Work Phone: Start: 11-08-2020 Ecg routine ecg w/least 12 lds w/i&r Madhav Morrison MD Work Phone: Start: 11-08-2020 Radiologic exam chest single view Jd Brown ADJUNCT INSTRUCTOR IN ECONOMICS - AGENT CONTRACT CLERK Work Phone: Start: 11-08-2020 Basic metabolic panel calcium total Carmelo Brown ADJUNCT INSTRUCTOR IN ECONOMICS - AGENT CONTRACT CLERK Work Phone: Start: 11-07-2020 Basic metabolic panel calcium total Bebeto Washington ADJUNCT INSTRUCTOR IN ECONOMICS - AGENT CONTRACT CLERK Work Phone: Start: 11-07-2020 Ecg routine ecg w/least 12 lds w/i&r Stephen Poole MD Work Phone: Start: 9 End: 11-07-2020 Gluc bld gluc mntr dev cleared fda spec home use Stephen Poole MD Work Phone: Start: 11-07-2020 Gluc bld gluc mntr dev cleared fda spec home use Stephen Poole MD Work Phone: Start: 11-07-2020 Gluc bld gluc mntr dev cleared fda spec home use Stephen Poole MD Work Phone: Start: 11-07-2020 Ecg routine ecg w/least 12 lds w/i&r Madhav Morrison MD Work Phone: Start: 11-07-2020 Radiologic exam chest single view Jd Montez Stephanie ADJUNCT INSTRUCTOR IN ECONOMICS - AGENT CONTRACT CLERK Work Phone: Start: 11-07-2020 Basic metabolic panel calcium total Carmelo Montez Stephanie ADJUNCT INSTRUCTOR IN ECONOMICS - AGENT CONTRACT CLERK Work Phone: Start: 11-06-2020 Gluc bld gluc mntr dev cleared fda spec home use Andrew Goldman MD Work Phone: Start: 11-06-2020 Urnls dip stick/tablet rgnt auto w/o microscopy Ama Whipple ADJUNCT INSTRUCTOR IN ECONOMICS - AGENT CONTRACT CLERK Work Phone: Start: 11-06-2020 Gluc bld gluc mntr dev cleared fda spec home use Stephen Poole MD Work Phone: Start: 11-06-2020 Ecg routine ecg w/least 12 lds w/i&r Madhav Morrison MD Work Phone: Start: 11-06-2020 Radiologic exam chest single view Jd Montez Stephanie ADJUNCT INSTRUCTOR IN ECONOMICS - AGENT CONTRACT CLERK Work Phone: Start: 11-06-2020 End: 11-06-2020 Basic metabolic panel calcium total Carmelo Montez Stephanie ADJUNCT INSTRUCTOR IN ECONOMICS - AGENT CONTRACT CLERK Work Phone: Start: 11-06-2020 Gluc bld gluc mntr dev cleared fda spec home use Stephen Poole MD Work Phone: Start: 11-05-2020 Radiologic exam chest single view Jd Montez Stephanie ADJUNCT INSTRUCTOR IN ECONOMICS - AGENT CONTRACT CLERK Work Phone: Start: 11-05-2020 Transfusion of packed red blood cells Carmelo Montez Stephanie ADJUNCT INSTRUCTOR IN ECONOMICS - AGENT CONTRACT CLERK Work Phone: Start: 11-05-2020 Gluc bld gluc mntr dev cleared fda spec home use Stephen Poole MD Work Phone: Start: 11-05-2020 Transfusion of packed red blood cells Carmelo Montez 7-bites ADJUNCT INSTRUCTOR IN ECONOMICS - [facility] Work Phone: Start: 11-05-2020 Radiologic exam chest single view Jd Montez 7-bites ADJUNCT INSTRUCTOR IN ECONOMICS - [facility] Work Phone: Start: 11-05-2020 Gluc bld gluc mntr dev cleared fda spec home use Stephen Poole MD Work Phone: Start: 11-05-2020 Ecg routine ecg w/least 12 lds w/i&r Madhav Morrison MD Work Phone: Start: 11-05-2020 Speech and language therapy regime Carmelo Montez 7-bites ADJUNCT INSTRUCTOR IN ECONOMICS - [facility] Work Phone: Start: 11-05-2020 End: 11-05-2020 Gluc bld gluc mntr dev cleared fda spec home use Andrew Goldman MD Work Phone: Start: 11-05-2020 Radiologic exam chest single view Jd Montez 7-bites ADJUNCT INSTRUCTOR IN ECONOMICS - [facility] Work Phone: Start: 11-05-2020 End: 11-05-2020 Gluc bld gluc mntr dev cleared fda spec home use Andrew Goldman MD Work Phone: Start: 11-05-2020 Gluc bld gluc mntr dev cleared fda spec home use Andrew Goldman MD Work Phone: Start: 11-05-2020 End: 11-05-2020 Calcium ionized Andrew Goldman MD Work Phone: Start: 11-05-2020 BLOOD GAS, ARTERIAL Stephen Poole MD Work Phone: Start: 11-05-2020 Basic metabolic panel calcium total Carmelo Montez 7-bites ADJUNCT INSTRUCTOR IN ECONOMICS - [facility] Work Phone: Start: 11-04-2020 End: 11-05-2020 Gluc bld gluc mntr dev cleared fda spec home use Stephen Poole MD Work Phone: Start: 11-04-2020 End: 11-04-2020 Gluc bld gluc mntr dev cleared fda spec home use Stephen Poole MD Work Phone: Start: 11-04-2020 BLOOD GAS, ARTERIAL Stephen Poole MD Work Phone: Start: 11-04-2020 Ct head/brain w/o contrast material Eligio Gandara MD Work Phone: Start: 11-04-2020 BLOOD GAS, ARTERIAL Stephen Poole MD Work Phone: Start: 11-04-2020 Gluc bld gluc mntr dev cleared fda spec home use Stephen Poole MD Work Phone: Start: 11-04-2020 End: 11-04-2020 Gluc bld gluc mntr dev cleared fda spec home use Andrew Goldman MD Work Phone: Start: 11-04-2020 End: 11-04-2020 Gluc bld gluc mntr dev cleared fda spec home use Andrew Goldman MD Work Phone: Start: 11-04-2020 BEDSIDE SPIROMETRY Ama Whipple ADJUNCT INSTRUCTOR IN ECONOMICS - [facility] Work Phone: Start: 11-04-2020 GENERIC LABORATORY CHARGE Andrew Goldman MD Work Phone: Start: 11-04-2020 [facility] Nayeli Serrano MD Work Phone: Start: 11-04-2020 End: 11-04-2020 TRANSFUSE FRESH FROZEN PLASMA Stephen montez MD Work Phone: Start: 11-04-2020 End: 11-04-2020 Gluc bld gluc mntr dev cleared fda spec home use Andrew Goldman MD Work Phone: Start: 11-04-2020 History of coronary artery bypass grafting H/O coronary artery bypass surgery 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 Comment on above: CABG x 4 PERRY-Mid LAD, rSVG-[place], Seque ntial [id number] 11/04/20 Start: 11-04-2020 Gluc bld gluc mntr dev cleared fda spec home use Andrew Goldman MD Work Phone: Start: 11-04-2020 Radiologic exam chest single view Jd Montez Stephanie ADJUNCT INSTRUCTOR IN ECONOMICS - [facility] Work Phone: Start: 11-04-2020 Ecg routine ecg w/least 12 lds w/i&r Carmelo Montez Stephanie ADJUNCT INSTRUCTOR IN ECONOMICS - [facility] Work Phone: Start: 11-04-2020 OPERATIVE REPORT 3m Scanning Start: 11-04-2020 End: 11-04-2020 Basic metabolic panel calcium total Stephen Poole MD Work Phone: Start: 11-04-2020 BLOOD GAS, ARTERIAL Stephen Poole MD Work Phone: Start: 11-04-2020 Transesophageal echocardiography Alphonso Hernandez APRN [facility] Work Phone: Start: 11-04-2020 Ecg routine ecg w/least 12 lds w/i&r Madhav Morrison MD Work Phone: Start: 11-04-2020 Antibody screen Andrew Goldman MD Work Phone: Start: 11-04-2020 Basic metabolic panel calcium total Madhav Morrison MD Work Phone: Start: 11-04-2020 Blood typing serologic abo Alphonso Hernandez APRN [facility] Work Phone: Start: 11-04-2020 PREPARE FRESH FROZEN PLASMA Stephen Poole MD Work Phone: Start: 11-04-2020 PREPARE PLATELETS Alphonso Hernandze APRN - [facility] Work Phone: Start: 11-03-2020 Ecg routine ecg w/least 12 lds w/i&r Madhav Morrison MD Work Phone: Start: 11-03-2020 Basic metabolic panel calcium total Madhav Morrison MD Work Phone: Start: 11-02-2020 Thromboplastin time partial plasma/whole blood Nolan Boss MD Work Phone: Start: 11-02-2020 Ecg routine ecg w/least 12 lds w/i&r Madhav Morrison MD Work Phone: Start: 11-02-2020 Thromboplastin time partial plasma/whole blood Nolan Boss MD Work Phone: Start: 11-02-2020 Basic metabolic panel calcium total Madhav Morrison MD Work Phone: Start: 11-01-2020 Thromboplastin time partial plasma/whole blood Nolan Boss MD Work Phone: Start: 11-01-2020 Dup-scan xtr veins unilateral/limited study Ama Whipple ADJUNCT INSTRUCTOR IN ECONOMICS - AGENT CONTRACT CLERK Work Phone: Start: 11-01-2020 Duplex scan extracranial art compl bi study Ama Whipple ADJUNCT INSTRUCTOR IN ECONOMICS - AGENT CONTRACT CLERK Work Phone: Start: 11-01-2020 Basic metabolic panel calcium total Madhav Morrison MD Work Phone: Start: 11-01-2020 Echo tthrc r-t 2d w/wom-mode compl spec&colr d Nolan Boss MD Work Phone: Start: 11-01-2020 Ecg routine ecg w/least 12 lds w/i&r Nolan Boss MD Work Phone: Start: 10-31-2020 BASIC METABOLIC PANEL W/ REFLEX TO MG FOR LOW K Nolan Boss MD Work Phone: Start: 10-31-2020 Hemoglobin glycosylated a1c Nolan Boss MD Work Phone: Start: 10-31-2020 Assay of thyroid stimulating hormone tsh Ama Whipple ADJUNCT INSTRUCTOR IN ECONOMICS - AGENT CONTRACT CLERK Work Phone: Start: 10-31-2020 COVID-19 Ama Whipple ADJUNCT INSTRUCTOR IN ECONOMICS - AGENT CONTRACT CLERK Work Phone: Start: 10-31-2020 MRSA BY PCR Andrew Goldman MD Work Phone: Start: 10-31-2020 Urnls dip stick/tablet rgnt auto w/o microscopy Ama Whipple ADJUNCT INSTRUCTOR IN ECONOMICS - AGENT CONTRACT CLERK Work Phone: Start: 10-31-2020 Cardiac catheterization Andrew Goldman MD Work Phone: Start: 10-31-2020 End: 10-31-2020 Assay of thyroid stimulating hormone tsh Ama Whipple ADJUNCT INSTRUCTOR IN ECONOMICS - AGENT CONTRACT CLERK Work Phone: Start: 10-31-2020 CARDIAC CATH NURSING LOG 3m Scanning Start: 10-31-2020 Thromboplastin time partial plasma/whole blood Nolan Boss MD Work Phone: Start: 10-31-2020 Ecg routine ecg w/least 12 lds w/i&r Nolan Boss MD Work Phone: Start: 10-31-2020 Assay of ferritin Nolan Boss MD Work Phone: Start: 10-31-2020 BASIC METABOLIC PANEL W/ REFLEX TO MG FOR LOW K Nolan Boss MD Work Phone: Start: 10-31-2020 Lipid panel Nolan Boss MD Work Phone: Start: 10-31-2020 Ecg routine ecg w/least 12 lds w/i&r Nolan Boss MD Work Phone: Start: 03-22-2006 History of placement of stent for coronary artery disease History of coronary artery stent placement 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 [employer] Comment on above: [id number] LAD w/ 3 x 20 mm Taxus 02/23 History of coronary artery bypass grafting S/P CABG (coronary artery bypass graft) Andrew Goldman MD Work Phone: History of coronary artery bypass grafting S/P CABG x 4 Margo Marinelli ADJUNCT INSTRUCTOR IN ECONOMICS.PATIENT CARE SECRETARY Work Phone: Plan of Treatment Date Care Activity Detail Author Start: 11-19-2026 Diabetes Screening Diabetes Screenin g [facility] Start: 08-28-2026 Lipid panel [facility] Start: 11-18-2025 Lipid panel Lipid Panel [facility] Start: 09-11-2025 End: 09-11-2025 Patient encounter procedure 09/11/2025 2:00 PM EDT [facility] [place] [address] Opal Booth APRN - AGENT CONTRACT CLERK [address] [address] [facility] Start: 09-04-2025 Depression Monitoring Depression Mon [facility] Start: 08-03-2025 DIABETES SCREEN DIABETES SCREEN [facility] Start: 08-03-2025 Diabetes Screening Diabetes Screenin g [facility] Start: 04-07-2025 DIABETES SCREEN DIABETES SCREEN [facility] Start: 03-06-2025 End: 03-06-2025 Patient encounter procedure 03/06/2025 2:00 PM EDT [facility] [address] [place] [address] Opal Booth, ADJUNCT INSTRUCTOR IN ECONOMICS - AGENT CONTRACT CLERK [address] [address] [facility] Start: 02-28-2025 Depression Monitoring Depression Mon [facility] Start: 01-24-2025 Depression Screening Depression Scre ening [facility] Start: 01-22-2025 COVID-19 Vaccine ( season) COVID-19 Vaccine ( season) [facility] Start: 01-22-2025 Influenza vaccination [facility] Start: 12-20-2024 [facility] Start: 12-19-2024 Control nasal hemorr paulino anterior simple CONTROL OF NOSEBLEED 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 Start: 08-29-2024 End: 08-29-2024 Patient encounter procedure [facility] Start: 08-11-2024 Screening for osteoporosis [facility] Start: 07-05-2024 End: 07-05-2024 Patient encounter procedure 07/05/2024 11:00 AM EST Office Visit [facility] [place] [address] [place] [address] Jd Barger MD [address] [place] [address] 6 month follow up [facility] Comment on above: 6 month follow up Start: 05-24-2024 Advance Directive Discussion Advance Directive Discussion [facility] Start: 05-24-2024 Medicare Advantage A nnual Wellness Visit Medicare Advantage Annual Wellness Visit [facility] Start: 05-10-2024 Depression Screening Depression Scre ening [facility] Start: 03-27-2024 DIABETES SCREEN DIABETES SCREEN [facility] Start: 01-23-2024 COVID-19 Vaccine ( season) COVID-19 Vaccine ( season) [facility] Start: 01-23-2024 Covid-19 Vaccine ( season) Covid-19 Vaccine () [facility] Start: 01-23-2024 Influenza vaccination S [facility] Start: 12-17-2023 End: 12-17-2023 Patient encounter procedure 12/17/2023 3:40 PM EDT Office Visit [facility] [place] [address] [place] [address] Jd Barger MD [address] [place] [address] 6 month follow up [facility] [place] Comment on above: 6 month follow up Start: 12-16-2023 ANNUAL PCP TEAM BOUNTY HUNTER ANGELICA DISEASE VISIT ANNUAL PCP TEAM CHRONIC DISEASE VISIT [facility] Start: 12-16-2023 BP CONTROLLED (<130/80) BP CONTROLLE D (<130/80) [facility] Start: 12-09-2023 End: 12-09-2023 Patient encounter procedure 12/09/2023 12:45 PM EDT Office Visit [facility] [address] [place] [phone] Alyx Talavera MD [address] [place] [address] [facility] Start: 11-24-2023 Thyroid stimulating hormone measurement TSH Level [facility] Start: 11-03-2023 Depression Screening Depression Scre ening [facility] Start: 08-12-2023 Screening for osteoporosis Bone Dens ity Scan [facility] Start: 06-23-2023 ANNUAL PCP TEAM BOUNTY HUNTER ANGELICA DISEASE VISIT ANNUAL PCP TEAM CHRONIC DISEASE VISIT [facility] Start: 06-23-2023 BP CONTROLLED (<130/80) BP CONTROLLE D (<130/80) [facility] Start: 06-23-2023 SHINGRIX VACCINE (2 of 3) KING GRIX VACCINE (2 of 3) [facility] Comment on above: Postponed from 03/16 (Declined at this time) Start: 06-23-2023 Urine microalbumin profile [facility] Comment on above: Postponed from 06/18 (Declined at this time) Start: 05-24-2023 Advance Directive Discussion Advance Directive Discussion [facility] Start: 05-24-2023 Medicare Advantage A nnual Wellness Visit Medicare Advantage Annual Wellness Visit [facility] Start: 05-10-2023 End: 05-10-2023 Patient encounter procedure 05/10/2023 9:45 AM EST Office Visit [facility] [address] [place] [phone] Dyllan Galo MD [address] [place] [address] [facility] Start: 03-30-2023 BP CONTROLLED (<130/80) BP CONTROLLE D (<130/80) [facility] Start: 03-16-2023 Thyroid stimulating hormone measurement TSH Level [facility] Start: 01-22-2023 Covid-19 Vaccine ( season) Covid-19 Vaccine ( season) [facility] Start: 01-22-2023 Influenza vaccination [facility] Start: 12-16-2022 ANNUAL PCP TEAM BOUNTY HUNTER ANGELICA DISEASE VISIT ANNUAL PCP TEAM CHRONIC DISEASE VISIT [facility] Start: 11-04-2022 BP CONTROLLED (<130/80) BP CONTROLLE D (<130/80) [facility] Start: 11-02-2022 End: 11-03-2023 25-hydroxyvitamin D3 [Mass/volume] in Serum or Plasma Vitamin D 25 hydroxy Lab Routine Vitamin D deficiency Expected: 11/02/2022 (Approximate), Expires: 11/03/2023 [facility] Comment on above: Expected: 11/02/2022 (Approximate), Expires: 11/03/2023 Start: 11-02-2022 End: 11-03-2023 Cobalamin (Vitamin B12) [Mass/volume] in Serum or Plasma Vitamin B12 Lab Routine Vitamin B12 deficiency Expected: 11/02/2022 (Approximate), Expires: 11/03/2023 [facility] [employer] Work Phone: Comment on above: Expected: 11/02/2022 (Approximate), Expires: 11/03/2023 Start: 08-28-2022 ANNUAL PCP TEAM BOUNTY HUNTER ANGELICA DISEASE VISIT ANNUAL PCP TEAM CHRONIC DISEASE VISIT [facility] Start: 08-28-2022 Hepatitis B surface antibody level LDL CHOLESTEROL [facility] Start: 07-07-2022 BP CONTROLLED (<130/80) BP CONTROLLE D (<130/80) [facility] Start: 06-02-2022 Patient discharge [facility] Start: 06-02-2022 Referral to service [facility] Start: 05-29-2022 ANNUAL PCP TEAM BOUNTY HUNTER ANGELICA DISEASE VISIT ANNUAL PCP TEAM CHRONIC DISEASE VISIT [facility] Start: 05-25-2022 SHINGRIX VACCINE (2 of 3) KING GRIX VACCINE (2 of 3) [facility] Comment on above: Postponed from 03/16 (Insurance Coverage) Start: 05-25-2022 Urine microalbumin profile DTA P,TDAP,TD (2 - Td or Tdap) [facility] Comment on above: Postponed from 06/18 (Insurance Coverage) Start: 05-24-2022 ADVANCE DIRECTIVE DISCUSSION ADVANCE DIRECTIVE DISCUSSION [facility] Start: 05-23-2022 Referral to occupati onal therapist [facility] Start: 05-23-2022 Referral to service [facility] Start: 05-22-[address] [facility] Start: 05-22-2022 Assessment of risk o f venous thromboembolism [facility] Start: 05-22-2022 Insertion of cathete r into peripheral vein [facility] Start: 05-22-2022 Providing care accor ding to standard [facility] Start: 05-22-2022 [facility] Start: 05-22-2022 Following clinical p athway protocol [facility] Start: 05-22-2022 Verification routine [facility] Work Phone: Start: 05-22-2022 Admission procedure [facility] Start: 05-22-2022 Patient referral to dietitian [facility] Start: 05-02-2022 End: 05-16-2022 Influenza virus A and B RNA and SARS-CoV-2 (COVID-19) N gene panel - Respiratory specimen by YINKA with probe detection COVID WITH FLUA+B, ROUTINE Microbiology Routine Viral URI with cough Expected: 05/02/2022, Expires: 05/16/2022 [facility] Work Phone: Comment on above: Expected: 05/02/2022 , Expires: 05/16/2022 Start: 04-20-2022 End: 06-20-2022 Hepatic function 2000 panel - Serum or Plasma HEPATIC FUNCTION PNL Lab Routine Elevated liver enzymes Expected: 04/20/2022, Expires: 06/20/2022 [facility] Work Phone: Comment on above: Expected: 04/20/2022 , Expires: 06/20/2022 Start: 03-30-2022 End: 05-30-2022 Comprehensive metabolic 2000 panel - Serum or Plasma COMP METABOLIC PANEL Lab Routine Elevated liver enzymes Expected: 03/30/2022, Expires: 05/30/2022 [facility] Work Phone: Comment on above: Expected: 03/30/2022 , Expires: 05/30/2022 Start: 03-27-2022 BP CONTROLLED (<130/80) BP CONTROLLE D (<130/80) [facility] Start: 02-10-2022 COVID-19 VACCINE (5 - Booster for Moderna series) COVID-19 VACCINE (5 - Booster for Moderna series) [facility] Start: 02-10-2022 COVID-19 VACCINE (5 - Moderna series) COVID-19 VACCINE (5 - Moderna series) [facility] Start: 01-28-2022 ANNUAL PCP TEAM BOUNTY HUNTER ANGELICA DISEASE VISIT ANNUAL PCP TEAM CHRONIC DISEASE VISIT [facility] Start: 01-22-2022 Influenza vaccination INFLUENZA (#1) [facility] Start: 12-22-2021 End: 02-21-2022 Magnesium [Mass/volume] in Serum or Plasma MAGNESIUM BLD Lab Routine Encounter for long-term current use of medication Expected: 12/22/2021 (Approximate), Expires: 02/21/2022 [facility] Work Phone: Comment on above: Expected: 12/22/2021 (Approximate), Expires: 02/21/2022 Start: 12-22-2021 End: 02-21-2022 Thyrotropin [Units/volume] in Serum or Plasma TSH BLD Lab Routine Acquired hypothyroidism Expected: 12/22/2021 (Approximate), Expires: 02/21/2022 [facility] Work Phone: Comment on above: Expected: 12/22/2021 (Approximate), Expires: 02/21/2022 Start: 12-22-2021 End: 02-21-2022 Thyroxine (T4) free [Mass/volume] in Serum or Plasma T4 FREE/FREE THYROX Lab Routine Acquired hypothyroidism Expected: 12/22/2021 (Approximate), Expires: 02/21/2022 [facility] Work Phone: Comment on above: Expected: 12/22/2021 (Approximate), Expires: 02/21/2022 Start: 12-22-2021 End: 02-21-2022 Triiodothyronine (T3) Free [Mass/volume] in Serum or Plasma T3 FREE BLD Lab Routine Acquired hypothyroidism Expected: 12/22/2021 (Approximate), Expires: 02/21/2022 [facility] Work Phone: Comment on above: Expected: 12/22/2021 (Approximate), Expires: 02/21/2022 Start: 11-28-2021 End: 01-28-2022 Bacteria identified in Urine by Culture URINE CULTURE Microbiology Routine Urinary frequency Expected: 11/28/2021, Expires: 01/28/2022 [facility] Work Phone: Comment on above: Expected: 11/28/2021 , Expires: 01/28/2022 Start: 11-28-2021 End: 01-28-2022 Urinalysis complete panel - Urine URINALYSIS, WITH MICROSCOPIC Lab Routine Urinary frequency Expected: 11/28/2021, Expires: 01/28/2022 [facility] Work Phone: Comment on above: Expected: 11/28/2021 , Expires: 01/28/2022 Start: 11-18-2021 Creatinine measurement [facility] Work Phone: Start: 11-18-2021 Lipid panel [facility] Start: 11-18-2021 [facility] Work Phone: Start: 10-31-2021 Thyroid stimulating hormone measurement [facility] Work Phone: Start: 09-19-2021 COVID-19 VACCINE (4 - Booster for Moderna series) COVID-19 VACCINE (4 - Booster for Moderna series) [facility] Start: 08-28-2021 End: 10-28-2021 LIPID PANEL, NONFASTING [facility] Work Phone: Comment on above: Expected: 08/28/2021 , Expires: 10/28/2021 Start: 07-16-2021 COVID-19 VACCINE (4 - Booster for Moderna series) COVID-19 VACCINE (4 - Booster for Moderna series) [facility] Start: 05-24-2021 ADVANCE DIRECTIVE DISCUSSION ADVANCE DIRECTIVE DISCUSSION [facility] Start: 05-03-2021 Hepatitis B surface antibody level LDL CHOLESTEROL [facility] Start: 12-09-2020 End: 12-09-2020 ambulatory [facility] [place] Start: 11-28-2020 End: 11-28-2020 Evaluation and management of inpatient [facility] Start: 11-04-2020 Annual Wellness Visi t (AWV) Annual Wellness Visit (AWV) [facility] Start: 11-04-2020 [facility] Work Phone: Start: 2020 RSV Immunization for Adults (1 - 1-dose 75+ series) RSV Immunization for Adults (1 - 1-dose 75+ series) [facility] Start: 2020 RSV Vaccine (1 - 1-d ose 75+ series) RSV Vaccine (1 - 1-dose 75+ series) [facility] Start: 06-18-2019 DTaP/Tdap/Td vaccine (2 - Td or Tdap) DTaP/Tdap/Td vaccine (2 - Td or Tdap) [facility] Start: 06-18-2019 DTaP/Tdap/Td Vaccine s (2 - Td or Tdap) DTaP/Tdap/Td Vaccines (2 - Td or Tdap) [facility] Start: 06-18-2019 Urine microalbumin profile [facility] Start: 06-18-2019 [facility] Work Phone: Start: 03-16-2008 Shingles vaccine (2 of 3) King gles vaccine (2 of 3) [facility] Start: 03-16-2008 SHINGRIX VACCINE (2 of 3) KING GRIX VACCINE (2 of 3) [facility] Start: 03-16-2008 Zoster Vaccines (2 of 3) Zoste r Vaccines (2 of 3) [facility] Start: 03-16-2008 [facility] Work Phone: Start: 2005 Hepatitis B Vaccines (1 of 3 - Risk 3-dose series) Hepatitis B Vaccines (1 of 3 - Risk 3-dose series) [facility] Start: 2005 RSV Immunization age d 60 or older (1 - 1-dose 60+ series) RSV Immunization aged 60 or older (1 - 1-dose 60+ series) [facility] Start: 2005 RSV Vaccine (1 - 1-d ose 60+ series) RSV Vaccine (1 - 1-dose 60+ series) [facility] Start: 2000 Screening for osteoporosis [facility] Start: 08-15-1995 Screening for malign ant neoplasm of colon [facility] Work Phone: Start: 1964 Hepatitis A Vaccines (1 of 2 - Risk 2-dose series) Hepatitis A Vaccines (1 of 2 - Risk 2-dose series) [facility] [employer] Start: 08-15-1963 Hepatitis C screening [facility] Start: 1957 Depression Screen Depression Screen [facility] Start: 1957 [facility] Work Phone: Start: 02-14-1946 COVID-19 Vaccine (#1) COVID-19 Vacci ne (#1) [facility] Start: 1945 Hepatitis C screening [facility] Work Phone: Start: 1945 Medicare Advantage A nnual Wellness Visit (AWV) Medicare Advantage Annual Wellness Visit (AWV) [facility] [employer] Work Phone: Albumin [Moles/volum e] in Serum or Plasma [facility] Albumin/Globulin ratio [facility] Angiotensin converti ng enzyme [Enzymatic activity/volume] in Serum or Plasma [facility] Antibody to lupus La protein measurement [facility] Antibody to SS-A measurement [facility] End: 11-21-2023 Bacteria identified in Urine by Culture Urine culture Microbiology STAT Once (Lab) for 1 Occurrences starting 11/21/2023 until 11/21/2023 [facility] [employer] Work Phone: Comment on above: Once (Lab) for 1 Occ urrences starting 11/21/2023 until 11/21/2023 Bacteria identified in Urine by Culture Urine culture Microbiology STAT 11/21/2023 1:03 AM EDT [facility] Cancer antigen 19-[address] [facility] CBC W Auto Different ial panel - Blood [facility] Centromere protein B Ab [Units/volume] in Serum [facility] Chromatin Ab [Units/volume] in Serum or Plasma [facility] Complement C3 [Mass/volume] in Serum or Plasma [facility] Complement C4 [Mass/volume] in Serum or Plasma [facility] Complement total hem olytic CH50 [Units/volume] in Serum or Plasma [facility] Comprehensive metabo lic 2000 panel - Serum or Plasma [facility] End: 07-23-2023 Ct abdomen & pelvis w/contrast material CT ABD/PEL W IVCON Radiology Routine Acute colitis Pancreatic lesion Infection in abdomen (HCC) 1 Occurrences starting 07/13/2022 until 07/23/2023 [facility] Work Phone: Comment on above: 1 Occurrences starti ng 07/13/2022 until 07/23/2023 CT Abdomen and Pelvi s W contrast IV [facility] DNA double strand Ab [Units/volume] in Serum [facility] End: 04-29-2023 Dxa bone density study 1/> sites axial skel DXA-AXIAL SKELETON Radiology Routine Elevated liver enzymes 1 Occurrences starting 03/30/2022 until 04/29/2023 [facility] Work Phone: Comment on above: 1 Occurrences starti ng 03/30/2022 until 04/29/2023 Electrophoresis: [id number] [facility] Electrophoresis: kapil ma globulin [facility] Globulin measurement [facility] Glucose [Mass/volume ] in Serum or Plasma [facility] Work Phone: End: 11-01-2020 Hemoglobin A1c/Hemoglobin.total in Blood [facility] Work Phone: Hemoglobin A1c/Hemoglobin.total in Blood [facility] Work Phone: IgA [Mass/volume] in Serum or Plasma [facility] IgG [Mass/volume] in Serum or Plasma [facility] IgG subclass 1 [Mass/volume] in Serum [facility] IgG subclass 2 [Mass/volume] in Serum [facility] IgG subclass 3 [Mass/volume] in Serum [facility] IgG subclass 4 [Mass/volume] in Serum [facility] IgM [Mass/volume] in Serum or Plasma [facility] Kayli-1 extractable nuc lear Ab [Units/volume] in Serum [facility] Lipid 1996 panel - [place] or Plasma [facility] Liver stiffness by US.transient elastography [facility] Measurement of immunoglobulin A in serum specimen [facility] MR Biliary ducts and Pancreatic duct WO contrast [facility] Neutrophil cytoplasm ic Ab.classic [Units/volume] in Serum [facility] Oxygen therapy [Mini mum Data Set] [facility] Work Phone: P-ANCA measurement [facility] Patient Education ED Epist[employer] (Adult) [facility] Work Phone: Patient referral [facility] Work Phone: [employer] COVI D-19 BIVALENT BOOSTER VACCINE, AGE 12+ YR [employer] COVID-19 BIVALENT BOOSTER VACCINE, AGE 12+ YR Immunization/Injection Routine Need for COVID-19 vaccine Encounter for immunization Ordered: 03/30/2022 [facility] Work Phone: Comment on above: Ordered: 03/30/2022 Protein electrophore sis panel - Serum or Plasma [facility] PT PLAN OF CARE CERTIFICATION PT PLAN OF CARE CERTIFICATION Procedures Routine Leg weakness, bilateral History of CVA (cerebrovascular accident) General weakness Gait difficulty Ordered: 09/11/2021 [facility] Work Phone: Comment on above: Ordered: 09/11/2021 End: 06-13-2023 Radiologic exam chest 2 views XR CHEST 2V FRONTAL/LAT Radiology Routine Acute cough SOBOE (shortness of breath on exertion) 1 Occurrences starting 05/14/2022 until 06/13/2023 [facility] Work Phone: Comment on above: 1 Occurrences starti ng 05/14/2022 until 06/13/2023 Radiologic exam ches t 2 views XR CHEST 2V FRONTAL/LAT Radiology Routine Acute cough SOBOE (shortness of breath on exertion) 05/14/2022 2:50 PM EST [facility] Work Phone: SCL-70 extractable n uclear Ab [Units/volume] in Serum by Immunoassay [facility] Serum protein electrophoresis [facility] Michel extractable nu clear Ab [Presence] in Serum [facility] Spirometry panel [facility] Work Phone: Tissue transglutamin ase IgA Ab [Units/volume] in Serum [facility] End: 11-18-2020 Troponin I.cardiac [Mass/volume] in Serum or Plasma [facility] Work Phone: Troponin I.cardiac [Mass/volume] in Serum or Plasma [facility] Work Phone: End: 04-29-2023 Us abdominal real time w/image limited US ABD RT UPPER QUADRANT Radiology Routine Elevated liver enzymes 1 Occurrences starting 03/30/2022 until 04/29/2023 [facility] Work Phone: Comment on above: 1 Occurrences starti ng 03/30/2022 until 04/29/2023 [facility] Immunizations Immunization Date Immunization Notes Care Provider [facility] 03-02-2022 Influenza, high dose seasonal Dr. Agatha Matthews MD Work Phone: [facility] 03-02-2022 influenza, high dose seasonal, preservative-free Dr. Jd Barger Work Phone: [facility] 03-02-2022 influenza, high-dose , quadrivalent vaccine (FLUZONE HIGH DOSE QUADRIVALENT) [facility] Work Phone: [facility] Work Phone: 03-02-2022 influenza virus vaccine, unspecified formulation Fatuma Johnson MD Work Phone: [facility] 12-16-2021 Covid (Moderna) Dr. Jd thibodeaux Work Phone: [facility] 05-21-2021 Covid (Moderna) Dr. Jd thibodeaux Work Phone: [facility] 03-27-2021 influenza, high-dose , quadrivalent vaccine (FLUZONE HIGH DOSE QUADRIVALENT) Jd Barger MD Work Phone: [facility] Work Phone: 10-17-2020 Covid (Moderna) Dr. Jd thibodeaux Work Phone: [facility] 09-12-2020 Covid (Moderna) Dr. Jd thibodeaux Work Phone: [facility] 05-03-2020 Andrew Goldman MD Work Phone: [facility] 02-24-2019 influenza, high dose seasonal, preservative-free Andrew Goldman MD Work Phone: [facility] 02-23-[address] Jd Barger Work Phone: [facility] 08-05-2018 pneumococcal polysaccharide vaccine, 23 valtarik Goldman MD Work Phone: [facility] Work Phone: 01-26-2018 influenza, high dose seasonal, preservative-free Andrew Goldman MD Work Phone: [facility] 04-02-2017 pneumococcal conjuga te vaccine, 13 valent Andrew Goldman MD Work Phone: [facility] Work Phone: 02-01-2017 influenza, high dose seasonal, preservative-free Andrew Goldman MD Work Phone: [facility] Work Phone: 05-11-2016 influenza, high dose seasonal, preservative-free Andrew Goldman MD Work Phone: [facility] 02-27-2015 influenza nasal, unspecified formulation Jd Barger MD Work Phone: [facility] Work Phone: 02-27-2015 influenza virus vaccine, unspecified formulation Andrew Goldman MD Work Phone: [facility] Work Phone: 02-27-2015 influenza, injectabl e, quadrivalent, preservative free Dr. Agatha Matthews MD Work Phone: [facility] 02-27-2015 influenza, seasonal, injectable Jd Barger MD Work Phone: [facility] 05-30-2014 pneumococcal conjuga te vaccine, [address] Agatha Matthews MD Work Phone: [facility] 05-12-2014 influenza, high dose seasonal, preservative-free Andrew Goldman MD Work Phone: [facility] 02-16-2013 influenza virus vaccine, unspecified formulation Andrew Goldman MD Work Phone: [facility] 03-10-2012 influenza nasal, unspecified formulation Jd Barger MD Work Phone: [facility] Work Phone: 03-10-2012 influenza virus vaccine, unspecified formulation Andrew Goldman MD Work Phone: [facility] 03-11-2010 influenza virus vaccine, unspecified formulation Andrew Goldman MD Work Phone: [facility] Work Phone: 06-18-2009 tetanus toxoid, redu promise diphtheria toxoid, and acellular pertussis vaccine, adsorbed Andrew Goldman MD Work Phone: [facility] Work Phone: 05-07-2009 novel [id number], preservative-free, injectable Margo Marinelli ADJUNCT INSTRUCTOR IN ECONOMICS.PATIENT CARE SECRETARY Work Phone: [facility] Work Phone: 01-30-2009 influenza virus vaccine, whole virus Andrew Goldman MD Work Phone: [facility] 01-30-2009 influenza, injectabl e, quadrivalent, preservative free Dr. Agatha Matthews MD Work Phone: [facility] 03-28-2008 influenza virus vaccine, unspecified formulation Andrew Goldman MD Work Phone: [facility] 01-20-2008 zoster vaccine, live Andrew quintana MD Work Phone: [facility] Work Phone: 03-31-2007 influenza virus vaccine, unspecified formulation Andrew Goldman MD Work Phone: [facility] Work Phone: 03-31-2007 pneumococcal polysaccharide vaccine, 23 valent Andrew Goldman MD Work Phone: [facility] Work Phone: NEGATED: Highlighted row has not occurred!03-30-2022 COVID-19 booster vaccine, age 12+ yr, bivalent ([employer]) Margo Marinelli APRN.[facility] Work Phone: [facility] Work Phone: Comment on above: Deferred: Postponed Payers Date Payer Category Payer Self-pay [id number] 2020 Medicare HUMANA MEDICARE HUMANA GOLD PLUS [id number] 2020-Present [phone] [address] [place] [id number] O [id number] 2020 Medicare [id number] 2020 Medicare HMO [facility] MEDICARE [id number] 2020 Medicare [id number] 2013 Medicare [id number] 1945 Unknown [id number]. 2.668 1945 Unknown [id number] [id number]. 2.668 Private Health Insurance Unknown [id number] 2.16.840.1.074429.3.579. 2.462 Unknown [id number] 2.16.840.1.117367.3.579. 2.462 Unknown [id number] 2.16.840.1.338491.3.579. 2.462 Unknown [id number] 2.16.840.1.045134.3.579. 2.462 Unknown [id number] 2.16.840.1.581120.3.579. 2.462 Unknown [id number] 2.16.840.1.670815.3.579. 2.462 Unknown [id number] 2.16.840.1.692836.3.579. 2.462 Unknown [id number] 2.16.840.1.056577.3.579. 2.462 Unknown [id number] 2.16.840.1.338972.3.579. 2.462 Unknown [id number] 2.16.840.1.698472.3.579. 2.462 Unknown [id number] 2.16.840.1.120712.3.579. 2.462 Unknown [id number] 2.16.840.1.723773.3.579. 2.462 Unknown [id number] 2.16.840.1.847515.3.579. 2.462 Unknown [id number] 2.16.840.1.027197.3.579. 2.462 Unknown [id number] 2.16.840.1.099894.3.579. 2.462 Social History Date Type Detail Facility Start: 11-11-2020 End: 12-19-2024 Tobacco smoking status NHIS Never smoker [facility]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 administering >>05/10/23 occ misses evening doses, Kyle reminds her to take them but does not watch her take them ; electronic med box, Jinny get notified if she forgets >>01/25/24 same >>08/29/24 still using alarmed pill box, Jinny gets notified if patient not taking them, aides or Kyle reminds her to take them as well >>03/06/25 same Finances [] [] [x] Brother/sister in law/financial reporting accountant manages, carries some berger with her, was getting scammed and after stroke >>11/02/22 would likely need guidance with how to use berger when spending >>05/10/23 has money, credit card in wallet, when out with public health registrar, she lets her do what she can, but will double check >>01/25/24 family keeps her purse. Can't navigate sales transaction - family/help assists when needed >>08/29/24 Jinny manages >>03/06/25 same documented in this encounter [facility] 03-06-2025 Instructions Opal Booth APRN - KATHERYN - 03/06/2025 2:00 PM EDT Ms. Rueda was seen today for memory/geriatric evaluation. Memory testing total score was a little better compared to last visit. Short-term memory score stayed stable though. Medications: - Continue memantine 10 mg twice daily as is. Refill sent today. 5 M s - supervision/assistance with medications, medical care, meals, money, mobility (falls). Avoiding medications that cause confusion and falls - Tylenol PM, Benadryl. Avoid smoking or drinking alcohol. General recommendations for safe drinkin drink per day for females, 2 drinks per day for males. Recommend physical, mental, and social activity - [employer] [place], [place] - It's what's in store Sneakers. Recommend routines, schedules, and organization. Recommend getting adequate sleep and eating balanced diet. Continue regular visits with primary care provider to maintain chronic health conditions. Follow-up visit in 6 months for repeat memory testing/routine visit. documented in this encounter [facility] 03-06-2025 Note Ms. Rueda was seen today for memory/geriatric evaluation. Memory testing total score was a little better compared to last visit. Short-term memory score stayed stable though. Medications: - Continue memantine 10 mg twice daily as is. Refill sent today. 5 M?s - supervision/assistance with medications, medical care, meals, money, mobility (falls). Avoiding medications that cause confusion and falls - Tylenol PM, Benadryl. Avoid smoking or drinking alcohol. General recommendations for safe drinkin drink per day for females, 2 drinks per day for males. Recommend physical, mental, and social activity - [employer] [place], Silver Sneakers. Recommend routines, schedules, and organization. Recommend getting adequate sleep and eating balanced diet. Continue regular visits with primary care provider to maintain chronic health conditions. Follow-up visit in 6 months for repeat memory testing/routine visit. [facility] 01-18-2025 Radiology Diagnostic study note [facility] Imaging Services [address] [place] [address] ABD Limited w/ Elastography MR#: [id number] Acct: [id number] Name: LAVELLE RUEDA Rep #: [id number] : 1945 F 79 From: Iván Lozano MD PCP: Dr. Bill Corado MD Status: REG CL I Study:ABD Limited w/ Elastography Date of Exa m: 01/18/25 Exam# [id number] Ordering Dr: Raven Garcia PROCEDURE: ABD LIMITED W/ ELASTOGRAPHY REASON FOR EXAM: FATTY LIVER COMPARISON: Prior study dated January 17, 2024. TECHNIQUE: Right upper quadrant abdominal ultrasound. Rolly ElastQ Imaging shear wave elastography for non-invasive assessment of liver tissue stiffness. [place] EPIQ Elite. FINDINGS: LIVER: Size: Unremarkable Length: 16.1 cm Echotexture: Diffusely echogenic suggesting fatty infiltration Contour: Normal Lesions: None identified Elastography: EQI Med: 13.9 kPa EQI Med Paulo: 2.1 m/s IQR/Med: 26 %* GALLBLADDER: No stones sludge wall thickening or tenderness. COMMON BILE DUCT: Not visualized due to overlying bowel gas. . PANCREAS: Obscured by bowel gas. The right kidney measures 9.6 cm 4.7 cm 5.1 cm. Renal cortex measures 0.9 cm. There is a 1.1 cm x 1.1 cm x 0.9 cm renal cyst. There are 2 tiny nonobstructive intrarenal calculi. No right upper quadrant ascites. US/ABD Limited w/ Elastography IMPRESSION: SEVERE HEPATIC FIBROSIS / CIRRHOSIS Fatty infiltration of the liver. Reference Values: SRU <1.37 m/s (5.7kPa): No to mild fibrosis 1.37 m/s - 2.2 m/s: Moderate to severe fibrosis >2.2 m/s (15kPa): Significant fibrosis / cirrhosis METAVIR Score F2 or higher: 1.34 m/s (5.7kPa) F3 or higher: 1.55 m/s (7.3kPa) F4: 1.80 m/s (10kPa) * If the IQR/Med is >30%, the variance in the measurements is a large and the accuracy of the measurement may be in question. Reading Location: [id number] CC: Dr. Bill Corado MD; JUDY Neal ~ Manager Star: Signed [facility] 12-20-[address] [facility] 12-19-2024 Discharge summary Note Date/Time December 20, 2024 12:41am [facility] Medical Records Department [address] [place] [address] Emergency Department Summary 12/19/24 MR#: [id number] Acct: [id number] Name: LAVELLE RUEDA Rep #:[id number] : 1945 79 From: Juan Miguel Covarrubias MD PCP: Dr. Bill Corado MD Status:REG ER Location: ED HPI History of Present Illness Chief Complaint: Nosebleed Informant: patient Narrative Narrative: 79-year-old female presenting for nosebleed that she states has been a relatively slow drip through from the right side since yesterday off and on. She states she feels fatigued but does not think that is a new symptom. She denies taking any blood thinners. She denies any near-syncope or syncope. No foreign bodies in her nose, no nasal injuries lately or head injuries, and denies blowing her nose lately or any other obvious cause of this. [facility] Medical History Abnormal finding on thyroid function test Depression Hyperthyroidism GERD (gastroesophageal reflux disease) Myocardial infarct Hypertension Stroke/cerebrovascular accident Dementia TIA (transient ischemic attack) Fracture of pubic ramus Colitis Edema Chronic cough PND (paroxysmal nocturnal dyspnea) Postoperative atrial fibrillation (11/06/20) Atherosclerotic heart disease of [place] coronary artery without angina pectoris History of non-ST elevation myocardial infarction (NSTEMI) (01/02/21) Anxiety Heme positive stool Anxiety and depression Iron deficiency anemia Pleural effusion, left Pleuritis Community acquired pneumonia Osteoarthritis Atherosclerosis of coronary artery of [place] heart without angina pectoris Essential (primary) hypertension HLD (hyperlipidemia) Home Medications ?Medication ?Instructions ?Recorded ?Last Taken ?Type acetaminophen 500 mg capsule 1,000 mg PO Q8H PRN Pain, Moderate 05/14/21 Unknown History aspirin 81 mg tablet,delayed 81 mg PO QODAY 07/09/21 1 10:00 History release (Adult Aspirin Regimen) cyanocobalamin (vitamin B-12) 1,000 mcg PO DAILY 05/22 Unknown History 1,000 mcg capsule ondansetron HCl 4 mg tablet 4 mg PO Q6H PRN Nausea Unknown History potassium chloride 10 mEq 20 meq (2 x 10 mEq) PO DAILY Pt 08/20/23 Unknown Rx tablet,extended release needs 10 meq pills to swallo w easier #60 tabs calcium carbonate-vitamin D3 1 tab PO DAILY 03/20/24 U nknown History [Calcium 600 with Vitamin D3] benzonatate 100 mg capsule 100 mg PO TID PRN Cough #30 caps 07/05/24 Unknown Rx escitalopram oxalate 10 mg tablet 10 mg PO DAILY anxie ty #90 tabs 07/05/24 Unknown Rx memantine 10 mg tablet 10 mg PO BID #180 tabs 07/05 Unknown Rx nortriptyline 25 mg capsule 25 mg PO DAILY #90 caps Unknown Rx atorvastatin 80 mg tablet 40 mg PO QHS 09/04/24 Unknow n History resmetirom 80 mg tablet (Rezdiffra) 80 mg PO DAILY Fat ty liver disease 09/04/24 Unknown History vitamin E 800 unit capsule 800 unit PO QDAY 09/04/24 U nknown History metoprolol succinate 50 mg 50 mg PO DAILY #90 TABLETS 09/15/24 Unknown Rx tablet,extended release 24 hr alendronate 70 mg tablet 70 mg PO QWEEK #12 tabs 09/21 06/17 Unknown Rx clopidogrel 75 mg tablet 75 mg PO DAILY #90 tabs 09/22 06/17 Unknown Rx levothyroxine 25 mcg tablet 25 mcg PO DAILY THYROID #9 0 tabs 11/01/24 Unknown Rx pantoprazole 20 mg tablet,delayed 20 mg PO DAILY #90 t abs 11/01/24 Unknown Rx release furosemide 40 mg tablet 40 mg PO DAILY #90 tabs 12/15 Unknown Rx Allergy/AdvReac Type Severity Reaction Status Date / Time lisinopril AdvReac Intermediate cough Verified 12/19/24 21:10 Family History Father Rheumatoid arthritis Mother CHF (congestive heart failure) Brother Age: 80 High cholesterol Uncle Heart disease Surgical History H/O coronary artery bypass surgery (11/04/20) History of repair of retinal tear by laser photocoagulation History of left heart catheterization (10/30/20) History of coronary artery stent placement (03/22/06) Hx of appendectomy Social History household members: none housing: house current occupational status: 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 Smoking Status: Never smoker alcohol intake: never substance use type: does not use caffeine: No do you feel safe at home: Yes ROS ROS ED Constitutional Constitutional ED: Reports fatigue; Denies chills or fever(s) Eyes Eyes: Denies change in vision or diplopia ENT ENT ED: Reports epistaxis; Denies rhinorrhea, sore throat or throat swelling Cardiovascular Cardiovascular: Denies chest pain, lightheadedness, palpitations or syncope Respiratory/Chest Respiratory/Chest: Denies cough or dyspnea Gastrointestinal Gastrointestinal: Denies abdominal pain, diarrhea, nausea or vomiting Genitourinary Genitourinary ED: Denies dysuria or hematuria Musculoskeletal Musculoskeletal: Denies back pain or neck pain Integumentary Denies abscess or rash Neurologic Neurologic: Denies headache(s), paresthesias or weakness Psychiatric Psychiatric: Denies anxiety or suicidal thoughts EXAM Physical Exam Const Vital Signs: 12/19/24 21:10 12/19/24 23:07 Temperature 97 F L Temperature Source Temporal Pulse Rate 75 67 Respiratory Rate 18 14 Blood Pressure 118/91 H 134/5 H Blood Pressure Mean 100 48 Pulse Ox 100 97 Oxygen Delivery Method Room Air Room Air Positive well nourished and well developed General Appearance ED: well developed and NAD HEENT Reports moist mucous membranes HEENT Narrative: Patient has a nasal clip on, posterior pharynx and mouth are clear of any blood. Taken off the nasal clip, the left naris is clear, the right has what appears to be clot at the septum without any active bleeding at this time. No septal hematoma or perforation. normocephalic and atraumatic Eyes PERRL and EOMs intact bilaterally Neck full ROM and supple Resp normal respiratory effort Neuro oriented x3, CN's II-XII intact bilaterally and no sensory deficits noted Sensorium / Orientation: awake and alert Motor Exam: strength 5/5 throughout Skin no rashes or lesions noted and no wounds MDM MDM MDM Narrative Medical decision making narrative: Patient appears to be on any antiplatelets. This appears to be septal anterior source of bleeding. Given her systemic symptoms obtaining a CBC, I will soak the right naris in vasoconstrictor and anesthetic, and reevaluate for possible cauterization. Reviewed her labs her CBC is normal, likely etiology of her anterior epistaxis was cauterized see the procedure note. Patient was discharged with appropriate discharge instructions regarding this. She states she is no longer on the antiplatelets that are listed in her EMR. History & Record Review Additional record(s) reviewed:: Other (EMR: Aspirin 81 mg, clopidogrel) Lab Data Labs: Laboratory Results - last 24 hr 12/19/24 12/19/24 23:04 23:26 WBC Cancelled 8.9 Corrected WBC Cancelled RBC Cancelled 4.62 Hgb Cancelled 12.4 Hct Cancelled 38.6 MCV Cancelled 83.5 MCH Cancelled 26.8 L MCHC Cancelled 32.1 RDW Std Deviation Cancelled 43.8 RDW Coeff of Kitty Cancelled 14.4 Plt Count Cancelled 216 MPV Cancelled 11.5 [address] Path Review Cancelled Procedures Other Procedures Procedure(s): epistaxis care -soaked right naris and Mabel solution. On reevaluation no active bleeding, there is septal evidence of etiology of the bleeding without hematoma. This was cauterized with silver nitrate. This was tolerated well no complications, no active bleeding, and no recurrent bleeding on observation afterwards. Discharge Plan Triage Chief Complaint: Nosebleed ED Provider: Juan Miguel Covarrubias Dx/Rx/DC Orders Clinical Impression: Acute anterior epistaxis Instructions: ED Epistaxis (Adult) Prescriptions: No Action calcium carbonate-vitamin D3 [Calcium 600 with Vitamin D3] 1 tab PO DAILY Rx Instructions: 1200 mg/ 800 vitamin E 800 unit capsule 800 unit PO QDAY Rezdiffra 80 mg tablet 80 mg PO DAILY atorvastatin 80 mg tablet 40 mg PO QHS Rx Instructions: Dose reduced due to patient starting Rezdiffra for fatty liver. acetaminophen 500 mg Capsule 1,000 mg PO Q8H PRN (Reason: Pain, Moderate) ondansetron HCl 4 mg Tablet 4 mg PO Q6H PRN (Reason: Nausea) cyanocobalamin (vitamin B-12) 1,000 mcg Capsule 1,000 mcg PO DAILY aspirin [Adult Aspirin Regimen] 81 mg tablet,delayed release (DR/EC) 81 mg PO QODAY potassium chloride 10 mEq tablet extended release 20 meq PO DAILY Qty: 60 11RF benzonatate 100 mg capsule 100 mg PO TID PRN (Reason: Cough) Qty: 30 0RF escitalopram oxalate 10 mg tablet 10 mg PO DAILY Qty: 90 0RF memantine 10 mg tablet 10 mg PO BID Qty: 180 0RF nortriptyline 25 mg capsule 25 mg PO DAILY Qty: 90 0RF metoprolol succinate 50 mg tablet extended release 24 hr 50 mg PO DAILY Qty: 90 3RF alendronate 70 mg tablet 70 mg PO QWEEK Qty: 12 0RF clopidogrel 75 mg tablet 75 mg PO DAILY Qty: 90 3RF pantoprazole 20 mg tablet,delayed release (DR/EC) 20 mg PO DAILY Qty: 90 0RF levothyroxine 25 mcg tablet 25 mcg PO DAILY Qty: 90 0RF furosemide 40 mg tablet 40 mg PO DAILY Qty: 90 3RF Primary Care Provider: Bill Corado Referrals: Bill Corado MD [Primary Care Provider] - Print Language: Guyanese Disposition Disposition: Home, Self Care What to do if you have Problems For any increased pain, shortness of breath, bleeding, nausea or vomiting, chestpain, or any unexpected problems, contact your Primary Care Provider. Call [facility] ([phone]) or report to the closest Emergency Room. Call 911 if necessary. 12/20/24 0041 <Electronically signed by Juan Miguel Covarrubias MD> Cosigner Signature (if applicable): CC: Dr. Bill Corado MD ~ Signed 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 Work Phone: 1(690) 796-856705-06-2025 Evaluation note* Diagnosis Onset Date Resolution Status Admit Date Ectopic beats acute September 26 1:11pm Essential (primary) hypertension chronic September 26, 2024 1: 11pm H/O coronary artery bypass surgery November 04, 2020 chronic September 26, 2024 1: 11pm History of coronary artery stent placement March 22, 2006 chronic September 26, 2024 1:11pm HLD (hyperlipidemia) chronic September 26, 2024 1:11pm [facility] Work Phone: 1(616) 449-310705-06-2025 Evaluation note* Diagnosis Onset Date Resolution Status Admit Date Ectopic beats acute September 26 1:11pm Essential (primary) hypertension chronic September 26, 2024 1: 11pm H/O coronary artery bypass surgery November 04, 2020 chronic September 26, 2024 1: 11pm History of coronary artery stent placement March 22, 2006 chronic September 26, 2024 1:11pm HLD (hyperlipidemia) chronic September 26, 2024 1:11pm Fatty liver acute November 01 1:24pm Neoplasm of uncertain behavior of pancreas acute November 01, 2024 1:24pm [facility] Work Phone: 1(472) 447-464604-08-2025 Evaluation + Plan note* Assessment & Plan Note - LUCIANO Hickman CNP - 08/29/2024 2:45 PM EDTAssociated Problem(s): Mixed Alzheimer's and vascular dementia (HCC) - Cognitive testing was down 1 point compared to last testing in 01/2024. Overall slow decline. - Remains in moderate stage - Continue memantine 10 mg twice daily as currently prescribed for memory loss. Tolerating current dose of medication. Will continue to follow along with medication and adjust PRN. - Continue non-pharmacologic interventions for memory - Has adequate supervision over 5 Ms- hired aides, adhesion tester, and family providing - Family is looking into getting pt into [facility]. Agree that increased socialization and activities would help with mood and memory. - F/u in 6 months [facility] routine visit[id number] Miscellaneous Notes* Assessment & Plan Note - LUCINAO Hickman CNP - 08/29/2024 2:45 PM EDTAssociated Problem(s): Mixed Alzheimer's and vascular dementia (HCC) - Cognitive testing was down 1 point compared to last testing in 01/2024. Overall slow decline. - Remains in moderate stage - Continue memantine 10 mg twice daily as currently prescribed for memory loss. Tolerating current dose of medication. Will continue to follow along with medication and adjust PRN. - Continue non-pharmacologic interventions for memory - Has adequate supervision over 5 Ms- hired aides, adhesion tester, and family providing - Family is looking into getting pt into [facility]. Agree that increased socialization and activities would help with mood and memory. - F/u in 6 months for routine visit/memory testing documented in this [facility] History of Present illness Narrative* LUCIANO Hickman CNP - 08/29/2024 2:00 PM EDT Images from the original note were not included. [facility] [address] [facility] [address] Dept: [phone] Dept Loc: [phone] Visit type: [facility] Follow Up Visit Reason for Visit: Memory Loss Visit Date: 08/29/2024 Assessment and Plan 1. Mixed Alzheimer's and vascular dementia (HCC) Assessment & Plan: - Cognitive testing was down 1 point compared to last testing in 01/2024. Overall slow decline. - Remains in moderate stage - Continue memantine 10 mg twice daily as currently prescribed for memory loss. Tolerating current dose of medication. Will continue to follow along with medication and adjust PRN. - Continue non-pharmacologic interventions for memory - Has adequate supervision over 5 Ms- hired aides, adhesion tester, and family providing - Family is looking into getting pt into [facility]. Agree that increased socialization and activities would help with mood and memory. - F/u in 6 months for routine visit/memory testing Orders: - memantine (Namenda) 10 MG tablet; Take 1 tablet (10 mg) by mouth 2 times daily., Starting Tu08/29/2024, Normal Follow up in about 6 months (around 02/28/2025). Subjective HPI: Lavelle Rueda is a 79 y.o. female who [facility] for a follow-upvisit. The patient is known to me. Established pt, initially seen in 2021, diagnosed with mixed Alzheimer's and vascular dementia, on memantine 10 mg BID. Last seen in 01/2024- Ozan 14 (MIS 7), CDT 1, PHQ 0, continued on memantine. History obtained from caregiver(s): Pt is here with her brother Adolph and KEVIN Stearns. Memory- No noticeable progressive decline in short term memory over the past several months since last visit in 01/2024. Function- At times more resistant to taking some of her medications. Still has aides coming. Her adhesion tester brings her sugary food sometimes, which is frustrating for family since pt is supposed to belosing weight 2/2 fatty liver disease. Driving- no longer driving. Personal care- has aide helping her take a shower 3 days per week. Sometimes resistant. Safety issues- No recent falls. No kitchen safety issues. Not doing much in the kitchen. No wandering outside the home. Has an air tag on her person for when she takes walks in the neighborhood. Mood/behaviors- Usually pretty upbeat. Behavior- sometimes resistant to care. Appetite- Good. Has gained some weight. Sleep- No issues as far as family and caregivers know. Told one of her aides that the book club was there all day. Has made comments about wanting to goback to working. Told someone that she was having trouble managing all these kids. Advanced directives: Power of Medical Policy Specialist- completed and scanned into Epic Living Will- completed and scanned into Element ID DNR- completed and scanned into [facility] History obtained from patient: Doing well. Not having pain. Mood: Good. Doesn't feel depressed or anxious. Mobility: No issues. Hasn't fallen recently. Sleep: No issues. Appetite: No issues. Reviewed progress notes completed by FRANKIE (ROS) and social work. Allergies Allergen Reactions Diazepam Other reaction(s): Mental Status Change, Other (See Comments) Nightmares. Would not want to take this again. Noted years ago, never charted, never mentioned Nightmares. Would not want to take this again. Noted years ago, never charted, never mentioned Iodides Iodinated Contrast Media Lisinopril gi upset Current Outpatient Medications Medication Sig Dispense Refill alendronate (Fosamax) 70 MG tablet TAKE 1 TABLET BY MOUTH ONCE A WEEK WITH A FULL GLASS OF WATER ALIDA EMPTY STOMACH. DO NOT LIE DOWN FOR 30 MINUTES aspirin 81 MG EC tablet Take 81 mg by mouth. atorvastatin (Lipitor) 80 MG tablet Take 1 tablet by mouth Nightly. benzonatate (Tessalon) 100 MG capsule Take 100 mg by mouth 3 times daily as needed for cough. Calcium Carbonate-Vitamin D (CALCIUM-VITAMIN D3 PO) Take 1 tablet by mouth in the morning and 1 tablet in the evening. 600mg Ca - 800 IUs Vit D. clopidogrel (Plavix) 75 MG tablet Take 1 tablet by mouth in the morning. cyanocobalamin (Vitamin B-12) 1000 MCG tablet Take 1,000 mcg by mouth in the morning. escitalopram (Lexapro) 10 MG tablet Take 1 tablet by mouth in the morning. furosemide (Lasix) 40 MG tablet Take 1 tablet by mouth in the morning and 1 tablet before bedtime. levothyroxine (Synthroid, Levoxyl) 25 MCG tablet TAKE 1 TABLET BY MOUTH ONCE DAILY ON AN EMPTY STOMACH FOR THYROID memantine (Namenda) 10 MG tablet Take 1 tablet (10 mg) by mouth 2 times daily. 180 tablet 1 metoprolol succinate XL (Toprol-XL) 50 MG 24 hr tablet Take 25 mg by mouth in the morning. nortriptyline (Pamelor) 25 MG capsule Take 25 mg by mouth in the morning and 25 mg before bedtime. ondansetron ODT (Zofran-ODT) 4 MG disintegrating tablet DISSOLVE 1 TABLET IN MOUTH EVERY 6 HOURS ASNEEDED FOR NAUSEA AND VOMITING pantoprazole (ProtoNix) 40 MG EC tablet Take 40 mg by mouth every morning (before breakfast). potassium chloride CR (Klor-Con M20) 20 MEQ ER tablet Take 1 tablet by mouth in the morning and 1 tablet before bedtime. RESMETIROM PO Take by mouth. No current facility-administered medications for this visit. Past Medical History: Diagnosis Date Alzheimer's dementia (HCC) CAD (coronary artery disease) Fatty liver disease, nonalcoholic Hyperlipidemia Hypertension Iron deficiency anemia Neuropathy Social History Tobacco Use Smoking status: Never Smokeless tobacco: Never Substance Use Topics Alcohol use: Not Currently Past Surgical History: Procedure Laterality Date APPENDECTOMY 1952 CARDIAC CATHETERIZATION 10/30/2020 CARDIAC CATHETERIZATION 2005 1 stent to LAD CORONARY ARTERY BYPASS GRAFT 11/04/2020 No family history on file. No family status information on file. Objective Vitals: 08/29/24 1402 BP: 111/73 BP Location: Left arm Patient Position: Sitting BP Cuff Size: Adult Pulse: 99 Weight: 174 lb 12.8 oz (79.3 kg) Wt Readings from Last 3 Encounters: 08/29/24 174 lb 12.8 oz (79.3 kg) 01/25/24 171 lb 12.8 oz (77.9 kg) 11/20/23 173 lb (78.5 kg) Physical Exam Constitutional: General: She is not in acute distress. Appearance: She is not ill-appearing. Comments: Elderly female. Pleasant and cooperative. Well kempt, well nourished. HENT: Head: Normocephalic. Comments: Wears glasses. No hearing aids. Right Ear: External ear normal. Left Ear: External ear normal. Cardiovascular: Rate and Rhythm: Normal rate and regular rhythm. Heart sounds: Normal heart sounds. No murmur heard. Pulmonary: Effort: Pulmonary effort is normal. No respiratory distress. Breath sounds: Normal breath sounds. Abdominal: General: Abdomen is flat. Palpations: Abdomen is soft. Tenderness: There is no abdominal tenderness. Musculoskeletal: General: Swelling (1+ BLE) present. Comments: Muscle strength 4/5 BLE Skin: General: Skin is warm and dry. Neurological: Comments: Alert and oriented x 3 (to self and place). Knows to use medical alert button to call forhelp. Doesn't know 911, states she would call [phone]. Speech is clear and appropriate. Follows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 mouth three times a day as needed. Date of last office visit in primary care: 12/17/2023 Date of next office visit in primary care: Visit date not found [facility] Please advise. Thank you. Marisel Pandya. documented in this [facility]24 NoteHNO ID: [id number] Author: JD BARGER MD Service: ? Author Type: Physician Type: Progress Notes Filed: 01/27/2024 22:51 Note Text: This note was created using ?riter. Subjective Lavelle Rueda is a 78 year old female. Patient presents with: F/U 6 months: Labs prior SUBJECTIVE: Lavelle Rueda is a 78 year old year old lady here today for 6 month follow up appointment for review of medical conditions. Jinny Orellana present. Limited vision in left field of vision so not able to drive. Treated for UTI in case while at ER 12/01 ([facility]). 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 Follows through [facility]. No apparent UTI symptoms now. Copy of DPOA dropped off to scan; will get the HCDPOA which names Nayeli OgMarc Orellana as her surrogate decision maker for health issues as well [place] through [facility] comes weekly. Helping with strength and stamina,. PAST MEDICAL HISTORY Diagnosis Date Anxiety state, unspecified Coronary artery disease ASHD, sees Dr. Sanabria Depressive disorder, not elsewhere classified Disorder of bone and cartilage, unspecified Diverticulosis of colon (without mention of hemorrhage) Generalized osteoarthrosis, unspecified site Hyperlipidemia Internal hemorrhoids without mention of complication Mixed Alzheimer's and vascular dementia (HCC) noted from Dr. 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 alendronate (FOSAMAX) 70 mg tablet Take 1 tablet by mouth one time a week. Take with a full glass of water, on an empty stomach; do NOT lie down for 30minutes. pantoprazole DR (PROTONIX) 20 mg tablet Take 1 tablet by mouth once daily. levothyroxine (SYNTHROID) 25 mcg tablet Take 1 tablet by mouth once daily. Take on empty stomach. For thyroid. escitalopram oxalate (LEXAPRO) 10 mg tablet Take 1 tablet by mouth once daily. nortriptyline (PAMELOR) 25 mg capsule Take 1 capsule by mouth twice daily. (Patient taking differently: Take 25 mg by mouth daily at bedtime.) atorvastatin (LIPITOR) 20 mg tablet Take 4 tablets by mouth daily at bedtime. For cholesterol. benzonatate (TESSALON PERLE) 100 mg capsule Take 1 capsule by mouth three times daily as needed. cholecalciferol (VITAMIN D3) 1,000 unit tab tablet Take 5 tablets by mouth once daily. triamcinolone acetonide (NASACORT) 55 mcg nasal inhaler Use 2 Sprays in the nose once daily as needed. For nasal congestion potassium chloride (K-TAB) 10 mEq tablet Take 2 tablets by mouth twice daily. ([facility]; needs 10meq; 20 meq too large) ondansetron orally disintegrating (ZOFRAN ODT) 4 mg disintegrating tablet Take 1 tablet by mouth every 6 hours as needed for nausea/vomiting. cyanocobalamin (VITAMIN B-12) 1,000 mcg tab Take 1,000 mcg by mouth. metoprolol succinate ER (TOPROL XL) 50 mg 24 hr tablet Take 25 mg by mouth once daily. nitroglycerin sublingual (NITROQUICK) 0.4 mg SL tablet Dissolve 1 tablet under the tongue every 5 minutes as needed. furosemide (LASIX) 40 mg tablet Take 1 tablet by mouth twice daily. (per cardiology) (Patient taking differently: Take 40 mg by mouth once daily. (per cardiology)) aspirin, enteric coated (ASPIRIN, ENTERIC COATED) 81 mg EC tablet Take 1 tablet by mouth once daily. clopidogrel (PLAVIX) 75 mg tablet Take 1 tablet by mouth once daily. ([facility]) No current facility-administered medications for this visit. Review of Systems Objective BP 124/82 Pulse 77 Temp 37.3 ?C (99.1 ?F) Resp 18 Wt 78 kg (172 lb) SpO2 98% BMI 27.76 kg/m? Physical Exam Constitutional: Appearance: Normal appearance. HENT: Head: Normocephalic. Eyes: Conjunctiva/sclera: Conjunctivae normal. Cardiovascular: Rate and Rhythm: Normal rate and regular rhythm. Heart sounds: Normal heart sounds. Pulmonary: Effort: Pulmonary effort is normal. Breath sounds: Normal breath sounds. Skin: General: Skin is warm and dry. Neurological: General: No focal deficit present. Mental Status: She is alert and oriented to person, place, and time. Psychiatric: Attention and Perception: Attention normal. Mood and Affect: Mood normal. Speech: Speech normal. Behavior: Behavior normal. Behavior is cooperative. Cognition and Memory: Cognition is impaired. Labs done at outside hospital per provider(s) at [facility]. Assessment and Plan Encounter Diagnosis ICD-10-CM 1. Essential hypertension I10 Controlled. Stay on same med 2. Left homonymous hemianopsia H53.[address]. 3. Mixed Alzheimer's and vascular dementia (HCC) G30.9 F01.50 F02.80 Continue sto follow with provider a (more content not included)...[facility]07-26-2024 History of Present illness Narrative* Jd Barger MD - 12/17/2023 4:26 PM EDT This note was created using NoteWriter. Subjective Lavelle Ruead is a 78 year old female. Patient presents with: F/U 6 months: Labs prior SUBJECTIVE: Lavelle Rueda is a 78 year old year old lady here today for 6 month follow up appointment for review of medical conditions. Jinny Kandy present. Limited vision in left field of vision so not able to drive. Treated for UTI in case while at ER 12/01 ([facility]). 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 Follows through [facility]. No apparent UTI symptoms now. Copy of DPOA dropped off to scan; will get the HCDPOA which names Nayeli Orellana as her surrogate decision maker for health issues as well [employer] through [facility] comes weekly. Helping with strength and stamina,. PAST MEDICAL HISTORY Diagnosis Date Anxiety state, unspecified Coronary artery disease ASHD, sees Dr. Sanarbia Depressive disorder, not elsewhere classified Disorder of bone and cartilage, unspecified Diverticulosis of colon (without mention of hemorrhage) Generalized osteoarthrosis, unspecified site Hyperlipidemia Internal hemorrhoids without mention of complication Mixed Alzheimer's and vascular dementia (HCC) noted from Dr. 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 alendronate (FOSAMAX) 70 mg tablet Take 1 tablet by mouth one time a week. Take with a full glass of water, on an empty stomach; do NOT lie down for 30minutes. pantoprazole DR (PROTONIX) 20 mg tablet Take 1 tablet by mouth once daily. levothyroxine (SYNTHROID) 25 mcg tablet Take 1 tablet by mouth once daily. Take on empty stomach. For thyroid. escitalopram oxalate (LEXAPRO) 10 mg tablet Take 1 tablet by mouth once daily. nortriptyline (PAMELOR) 25 mg capsule Take 1 capsule by mouth twice daily. (Patient taking differently: Take 25 mg by mouth daily at bedtime.) atorvastatin (LIPITOR) 20 mg tablet Take 4 tablets by mouth daily at bedtime. For cholesterol. benzonatate (TESSALON PERLE) 100 mg capsule Take 1 capsule by mouth three times daily as needed. cholecalciferol (VITAMIN D3) 1,000 unit tab tablet Take 5 tablets by mouth once daily. triamcinolone acetonide (NASACORT) 55 mcg nasal inhaler Use 2 Sprays in the nose once daily as needed. For nasal congestion potassium chloride (K-TAB) 10 mEq tablet Take 2 tablets by mouth twice daily. ([facility];needs 10meq; 20 meq too large) ondansetron orally disintegrating (ZOFRAN ODT) 4 mg disintegrating tablet Take 1 tablet by mouth every 6 hours as needed for nausea/vomiting. cyanocobalamin (VITAMIN B-12) 1,000 mcg tab Take 1,000 mcg by mouth. metoprolol succinate ER (TOPROL XL) 50 mg 24 hr tablet Take 25 mg by mouth once daily. nitroglycerin sublingual (NITROQUICK) 0.4 mg SL tablet Dissolve 1 tablet under the tongue every 5 minutes as needed. furosemide (LASIX) 40 mg tablet Take 1 tablet by mouth twice daily. (per cardiology) (Patient taking differently: Take 40 mg by mouth once daily. (per cardiology)) aspirin, enteric coated (ASPIRIN, ENTERIC COATED) 81 mg EC tablet Take 1 tablet by mouth once daily. clopidogrel (PLAVIX) 75 mg tablet Take 1 tablet by mouth once daily. ([facility]) No current facility-administered medications for this visit. Review of Systems Objective BP 124/82 Pulse 77 Temp 37.3 C (99.1 F) Resp 18 Wt 78 kg (172 lb) SpO2 98% BMI 27.76 kg/m Physical Exam Constitutional: Appearance: Normal appearance. HENT: Head: Normocephalic. Eyes: Conjunctiva/sclera: Conjunctivae normal. Cardiovascular: Rate and Rhythm: Normal rate and regular rhythm. Heart sounds: Normal heart sounds. Pulmonary: Effort: Pulmonary effort is normal. Breath sounds: Normal breath sounds. Skin: General: Skin is warm and dry. Neurological: General: No focal deficit present. Mental Status: She is alert and oriented to person, place, and time. Psychiatric: Attention and Perception: Attention normal. Mood and Affect: Mood normal. Speech: Speech normal. Behavior: Behavior normal. Behavior is cooperative. Cognition and Memory: Cognition is impaired. Labs done at outside hospital per provider(s) at [facility]. Assessment and Plan Encounter Diagnosis ICD-10-CM 1. Essential hypertension I10 Controlled. Stay on same med 2. Left homonymous hemianopsia H53.[address] 3. Mixed Alzheimer's and vascular dementia (HCC) G30.9 F01.50 F02.80 Continue sto follow with provider at [facility]. Above issues addressed with patient. Patient involved in shared decision making for management of medical issues. History and medications reviewed. Epic updated as needed Refills and/or prescriptions taken care of and meds adjusted as indicated after reviewed history, exam and labs. Health Maintenance reviewed. Updated record and/or ordered tests as recorded. Encouraged on efforts at healthy diet and regular exercise and adequate sleep. Stable on present meds. Has refills till next appointment. I spent a total of 26 minutes on the date of the service which included [id number] patient care, completing clinical documentation, obtaining and/or reviewing separately obtained history, performing a medically appropriate examination, counseling and educating the patient/family/caregiver, and ordering medications, tests, or procedures. Jd Barger MD documented in this [facility]24 Telephone encounter Note * Telephone Encounter - Jd Barger MD - 12/03/2023 7:07 PM EDT Below noted Mixed Alzheimer's and vascular dementia is on the Medical History list. Added to problem list [facility]07-12-2024 Miscellaneous Notes* Telephone Encounter - Jd Barger MD - 12/03/2023 7:07 PM EDT Below noted Mixed Alzheimer's and vascular dementia is on the Medical History list. Added to problem list * Telephone Encounter - Hetal Quiñonez RN - 12/02/2023 12:58 PM EDT No results faxed yet. Called [facility] ER and spoke to nurse Florentino who states pt did have a negative urine culture on 11/20. He faxed the results and records to us.Pt's urine culture was resulted on 11/21 and report states Normal urogenital chelsy present. Records sent to be scanned in. Called pt's sister in law Jinny and notified her of negative urine culture. Jinny had stated that pt has hx of Alzheimers and Dementia-no record of that found in problem listor in medical hx. Per outside epic information that is seen at on 11/02/22, pt sees Dr. Fatuma Johnson in [facility] Geriatric[facility] dept who has dx codes for office visits as Mixed Alzheimer's with Vascular Dementia. Jinny wondering if someone could please add this to pt's medical hx. Nurse added to medical hx * Telephone Encounter - Hetal Quiñonez RN - 12/02/2023 9:54 AM EDT Still no results or copies of records from [facility]. Attempted to call Medical records again with no success. Was able to LM on their answering machine. Left detailed msg that a Continuity of CareMedical Records Release form was faxed yesterday late in the day and marked as stat and to call us back to confirm they received the msg/form and results and copies of records have been faxed. * Telephone Encounter - Hetal Quiñonez RN - 12/02/2023 8:14 AM EDT Called and spoke with pt's sister in law Jinny. Notified of Dr. Barger' information and recommendations. Jinny states pt does not seem to be showing any signs of a UTI at this time. Jinny instructed to notify us if pt starts c/o any burning or pain with urination, frequency, urgency or foul odor with urination. Pt was taken to the ER on 11/19 due to confusion and thought was a UTI was causingit. Jinny instructed if they note any start to that again to call and get her in for an appt and we will check a urine again at that time. Jinny verbalizes understanding. Leaving encounter open until receive urine culture results from [facility]. * Telephone Encounter - Jd Barger MD - 12/01/2023 5:44 PM EDT There was insignificant growth on the recent urine culture (less than 100,000 colony forming units)--was actually under 25,000 CFUs. Sensitive to Cipro and Bactrim. If develops symptoms of UTI, would repeat urine studies then treat as indicated on that. Noted hard time getting info from [facility] regarding urine culture results. * Telephone Encounter - Hetal Quiñonez RN - 12/01/2023 4:[address] Barger notified of culture results. [facility] several [facility] a [facility] done from the 11/20 urinalysis done in the ER as well as getting test results and information faxed to Dr. Barger. Unable to contact anyone at two med records depts with [facility]. Also spoke to someone in [facility] ER to see if she could get results-was put onhold for over 10 mins. Called [facility] and spoke to someone that said there was a urine culture result from 11/20 but she did not want to send results. [facility] with no answer and no answering machine. [facility]ed [facility] form to [phone]. Will await records. * Telephone Encounter - Hetal Quiñonez RN - 12/01/2023 3:16 PM EDT Images from the original note were not included. * Telephone Encounter - Mary Akers LPN - 12/01/2023 8:22 AM EDT Results are scanned in patients chart for review. Please advise. * Telephone Encounter - Hetal Quiñonez RN - 11/30/2023 2:43 PM EDT Called and spoke with pt's sister in law Jinny and given Dr. Barger' information, instructions and recommendations. Jinny will call back if she hears the results of the urine culture from Dr. Heath's office. Will leave encounter open until we receive those results. * Telephone Encounter - Jd Barger MD - 11/30/2023 1:11 PM EDT Urinalysis from November 28 at [facility] showed occult blood 10 and leuk esterase 500; microscopic showed 10-25 white blood cells, 0-5 red blood cells. No urine culture results found on Care Everywhere or in scanned documents. Probably not done yet since has not been 3 days. Noted that patient did not complain of symptoms of UTI when spoke to triage nurse, but the home health aide stated that she had complained of some slight burning with urination. Since no definite symptoms of UTI, would monitor symptoms and wait for urine culture results to determine whether she truly has a UTI. Note that urine studies can show increased white blood cells without a patient having an actual infection. Monitor for fevers and other symptoms of UTI. * Telephone Encounter - Hetal Quiñonez RN - 11/30/2023 12:01 PM EDT Jinny Kandy (Pt's sister in law) calling in to report information on pt. Jinny states that pt was treated for a UTI (dx on 11/20) with Cephalexin. This was from an ER visit on 11/20/23 at [facility]. Pt was in to see Dr. Heath yesterday at [facility] and they did another dip of pt's urine and told Jinny and the pt that she still had a UTI and to call PCP for antibiotic. Jinny states Dr. Heath stated that the culture was not complete yet. Called and spoke with Lavelle who gives permission to speak with Jinny. Lavelle denies having any pain, burning, urgency frequency, foul odor or blood in her urine. Per home health aide Ella, pt told her that she was having some slight burning with urination. Attempted to contact [facility] Medical records to see if a culture was done on pt's urinalysis that was done on 11/20. No answer. Also had LM at Dr. Heath's office to check on urinalysis results they did yesterday. After calling, found results scanned in under lab. Please review information and urinalysis results from yesterday at [facility]. Contact Jinny if any information needed or if antibiotic is prescribed. Uses Shyam Brian. [facility] Telephone encounter Note * Telephone Encounter - Hetal Quiñonez RN - 12/02/2023 12:58 PM EDT No results faxed yet. Called [facility] and spoke to nurse Chadd who states pt did have a negative urine culture on 11/20. He faxed the results and records to us.Pt's urine culture was resulted on 11/21 and report states Normal urogenital chelsy present. Records sent to be scanned in. Called pt's sister in law Jinny and notified her of negative urine culture. Jinny had stated that pt has hx of Alzheimers and Dementia-no record of that found in problem listor in medical hx. Per outside epic information that is seen at on 11/02/22, pt sees Dr. Fatuma Johnson in [facility] Geriatrics dept who has dx codes for office visits as Mixed Alzheimer's with Vascular Dementia. Jinny wondering if someone could please add this to pt's medical hx. Nurse added to medical hx [facility]07-11-[facility] Telephone encounter Note* Telephone Encounter - Hetal Quiñonez RN - 12/02/2023 9:54 AM EDT Still no results or copies of records from [facility]. Attempted to call Medical records again with no success. Was able to LM on their answering machine. Left detailed msg that [facility] was faxed yesterday late in the day and marked as stat and to call us back to confirm they received the msg/form and results and copies of records have been faxed. [facility]07-11-2024 Telephone encounter Note* Telephone Encounter - Hetal Quiñonez RN - 12/02/2023 8:14 AM EDT Called and spoke with pt's sister in law Jinny. Notified of Dr. Barger' information and recommendations. Jinny states pt does not seem to be showing any signs of a UTI at this time. Jinny instructed to notify us if pt starts c/o any burning or pain with urination, frequency, urgency or foul odor with urination. Pt was taken to the ER on 11/19 due to confusion and thought was a UTI was causingit. Jinny instructed if they note any start to that again to call and get her in for an appt and we will check a urine again at that time. Jinny verbalizes understanding. Leaving encounter open until receive urine culture results from [facility]. [facility]07-10-2024 Telephone encounter Note* Telephone Encounter - Jd Barger MD - 12/01/2023 5:44 PM EDT There was insignificant growth on the recent urine culture (less than 100,000 colony forming units)--was actually under 25,000 CFUs. Sensitive to Cipro and Bactrim. If develops symptoms of UTI, would repeat urine studies then treat as indicated on that. Noted hard time getting info from [facility] regarding urine culture results. [facility]07-10-20[facility] Telephone encounter Note* Telephone Encounter - Hetal Quiñonez RN - 12/01/2023 4:[address] Barger notified of culture results. [facility] several [facility] a [facility] was done from the 11/20 urinalysis done in the ER as well as getting test results and information faxed to Dr. Barger. Unable to contact anyone at two med records depts with [facility]. Also spoke to someone in [facility] ER to see if she could get results-was put onhold for over 10 mins. Called [facility] and spoke to someone that said there was a urine culture result from 11/20 but she did not want to send results. [facility] with no answer and no answering machine. Faxed med records release form to [phone]. Will await records. [facility]07-10-2024 Telephone encounter Note* Telephone Encounter - Hetal Quiñonez RN - 12/01/2023 3:16 PM EDT Images from the original note were not included. [facility]07-10-[facility] Telephone encounter Note* Telephone Encounter - Mary Akers LPN - 12/01/2023 8:22 AM EDT Results are scanned in patients chart for review. Please advise. [facility]07-09-2024 Telephone encounter Note* Telephone Encounter - Hetal Quiñonez RN - 11/30/2023 2:43 PM EDT Called and spoke with pt's sister in law Jinny and given Dr. Barger' information, instructions and recommendations. Jinny will call back if she hears the results of the urine culture from Dr. Heath's office. Will leave encounter open until we receive those results. [facility]07-09-20[facility] Telephone encounter Note* Telephone Encounter - Jd Barger MD - 11/30/2023 1:11 PM EDT Urinalysis from November 28 at [facility] showed occult blood 10 and leuk esterase 500; microscopic showed 10-25 white blood cells, 0-5 red blood cells. No urine culture results found on Care Everywhere or in scanned documents. Probably not done yet since has not been 3 days. Noted that patient did not complain of symptoms of UTI when spoke to triage nurse, but the home health aide stated that she had complained of some slight burning with urination. Since no definite symptoms of UTI, would monitor symptoms and wait for urine culture results to determine whether she truly has a UTI. Note that urine studies can show increased white blood cells without a patient having an actual infection. Monitor for fevers and other symptoms of UTI. [facility]07-09-20[facility] Telephone encounter Note* Telephone Encounter - Hetal Quiñonez RN - 11/30/2023 12:01 PM EDT Jinny Orellana (Pt's sister in law) calling in to report information on pt. Jinny states that pt was treated for a UTI (dx on 11/20) with Cephalexin. This was from an ER visit on 11/20/23 at [facility]. Pt was in to see Dr. Heath yesterday at [facility] and they did another dip of pt's urine and told Jinny and the pt that she still had a UTI and to call PCP for antibiotic. Jinny states Dr. Heath stated that the culture was not complete yet. Called and spoke with Lavelle who gives permission to speak with Jinny. Lavelle denies having any pain, burning, urgency frequency, foul odor or blood in her urine. Per home health aide Ella, pt told her that she was having some slight burning with urination. Attempted to contact [facility] Medical records to see if a culture was done on pt's urinalysis that was done on 11/20. No answer. Also had LM at Dr. Heath's office to check on urinalysis results they did yesterday. After calling, found results scanned in under lab. Please review information and urinalysis results from yesterday at [facility]. Contact Jinny if any information needed or if antibiotic is prescribed. Uses Shyam Brian. [facility]06-[facility] Emergency department Note* Janel Velasquez RN - 11/21/2023 2:27 AM EDT Discharge instructions given including follow up instructions. Patient instructed to nut picker prescription at listed preferred pharmacy. All questions answered. Verbalizes understanding. Denies further questions or concerns. Pt pivoted to and from wheelchair with minimal assistance, no apparent distress. Janel Velasquez RN 11/21/23 0228 [id number] Emergency [facility] Note* Janel Velasquez RN - 11/21/2023 2:27 AM EDT Discharge instructions given including follow up instructions. Patient instructed to nut picker prescription at listed preferred pharmacy. All questions answered. Verbalizes understanding. Denies further questions or concerns. Pt pivoted to and from wheelchair with minimal assistance, no apparent distress. Janel Velasquez RN 11/21/23 0228 * Bryon Abad RN - 11/21/2023 1:05 AM EDT Urine spec sent to lab Bryon Abad RN 11/21/23 0106 * Bryon Abad RN - 11/21/2023 12:03 AM EDT Pt to bathroom, unable to produce urine at this time Bryon Abad RN 11/21/23 0004 * Bryon Abad RN - 11/20/2023 11:55 PM EDT Port xray in progress Bryon Abad RN 11/20/23 2355 * Michaelle Rowe PA-C - 11/20/2023 10:30 PM EDT I did not participate in the care of this patient. Michaelle Rowe PA-C 11/20/23 2253 * Joseph Akhtar MD - 11/20/2023 10:30 PM EDT EMERGENCY DEPARTMENT ENCOUNTER Pt Name: Lavelle Rueda Birthdate 1945 Date of evaluation: 11/20/2023 ED Provider: Joseph Akhtar MD CHIEF COMPLAINT Chief Complaint Patient presents with Altered Mental Status HISTORY OF PRESENT ILLNESS (Location/Symptom, Timing/Onset, Context/Setting, Quality, Duration, Modifying Factors, Severity) Note limiting factors. I wore appropriate PPE for the entirety of this encounter. HPI Lavelle Rueda is a 78 y.o. who presents to the emergency department with chief complaint of concern for confusion patient has Alzheimer's she does live alone now but has strong family support andhome nursing. Today she drove her car for the first time in 3 years but was lost for about 7 hours until she was able to call family. Here she has no complaints denies headache vision changes focal numbness or weakness chest pain shortness of breath fevers cough congestion shortness of breath nausea vomiting diarrhea abdominal painurinary symptoms or rash. She also denies any medication drugs and alcohol. No recent falls or trauma. Nursing Notes were reviewed. Limitations to history: Outside historians: REVIEW OF SYSTEMS Review of Systems Pertinent positives and negatives as per HPI. PAST MEDICAL HISTORY Past Medical History: Diagnosis Date Alzheimer's dementia (HCC) CAD (coronary artery disease) Hyperlipidemia Hypertension Iron deficiency anemia Neuropathy SURGICAL HISTORY Past Surgical History: Procedure Laterality Date APPENDECTOMY 1952 CARDIAC CATHETERIZATION 10/30/2020 CARDIAC CATHETERIZATION 2005 1 stent to LAD CORONARY ARTERY BYPASS GRAFT 11/04/2020 CURRENT MEDICATIONS Previous Medications ALENDRONATE (FOSAMAX) 70 MG TABLET TAKE 1 TABLET BY MOUTH ONCE A WEEK WITH A FULL GLASS OF WATER ALIDA EMPTY STOMACH. DO NOT LIE DOWN FOR 30 MINUTES ASPIRIN 81 MG EC TABLET Take 81 mg by mouth. ATORVASTATIN (LIPITOR) 80 MG TABLET Take 1 tablet by mouth Nightly. BENZONATATE (TESSALON) 100 MG CAPSULE Take 100 mg by mouth 3 times daily as needed for cough. CALCIUM CARBONATE-VITAMIN D (CALCIUM-VITAMIN D3 PO) Take 1 tablet by mouth in the morning and 1 tablet in the evening. 600mg Ca - 800 IUs Vit D. CLOPIDOGREL (PLAVIX) 75 MG TABLET Take 1 tablet by mouth in the morning. CYANOCOBALAMIN (VITAMIN B-12) 1000 MCG TABLET Take 1,000 mcg by mouth in the morning. ESCITALOPRAM (LEXAPRO) 10 MG TABLET Take 1 tablet by mouth in the morning. FUROSEMIDE (LASIX) 40 MG TABLET Take 1 tablet by mouth in the morning and 1 tablet before bedtime. LEVOTHYROXINE (SYNTHROID, LEVOXYL) 25 MCG TABLET TAKE 1 TABLET BY MOUTH ONCE DAILY ON AN EMPTY STOMACH FOR THYROID MEMANTINE (NAMENDA) 10 MG TABLET Take 1 tablet (10 mg) by mouth 2 times daily. METOPROLOL SUCCINATE XL (TOPROL-XL) 50 MG 24 HR TABLET Take 25 mg by mouth in the morning. NORTRIPTYLINE (PAMELOR) 25 MG CAPSULE Take 25 mg by mouth in the morning and 25 mg before bedtime. ONDANSETRON ODT (ZOFRAN-ODT) 4 MG DISINTEGRATING TABLET DISSOLVE 1 TABLET IN MOUTH EVERY 6 HOURS ASNEEDED FOR NAUSEA AND VOMITING PANTOPRAZOLE (PROTONIX) 40 MG EC TABLET Take 40 mg by mouth every morning (before breakfast). POTASSIUM CHLORIDE CR (KLOR-CON M20) 20 MEQ ER TABLET Take 1 tablet by mouth in the morning and 1 tablet before bedtime. ALLERGIES Diazepam, Iodides, Iodinated contrast media, and Lisinopril FAMILY HISTORY No family history on file. SOCIAL HISTORY Social History Socioeconomic History Marital status: Tobacco Use Smoking status: Never Smokeless tobacco: Never Substance and Sexual Activity Alcohol use: Not Currently Drug use: Never SCREENINGS PHYSICAL EXAM ED Triage Vitals [11/20/23 2242] Temp Heart Rate Resp BP 36.7 C (98.1 F) 73 18 (!) 160/78 SpO2 Temp src Heart Rate Source Patient Position 96 % -- -- -- BP Location FiO2 (%) -- -- Physical Exam Vitals and nursing note reviewed. Constitutional: General: She is not in acute distress. Appearance: She is well-developed. HENT: Head: Normocephalic and atraumatic. Eyes: Conjunctiva/sclera: Conjunctivae normal. Cardiovascular: Rate and Rhythm: Normal rate and regular rhythm. Pulmonary: Effort: No respiratory distress. Abdominal: General: There is no distension. Tenderness: There is no abdominal tenderness. There is no guarding. Skin: General: Skin is warm and dry. Neurological: General: No focal deficit present. Mental Status: She is alert and oriented to person, place, and time. Comments: NH 3 strength sensation intact throughout she is ANO x 3 no aphasia dysarthria facial droop has normal extraocular movements no vision changes normal coordination Psychiatric: Mood and Affect: Mood normal. DIAGNOSTIC RESULTS Procedures/EKG: EKG was reviewed by myself. Physician EKG interpretation can be found in [facility] RADIOLOGY (Per Emergency Physician): Interpretation per the Radiologist below, if available at the time of this note: XR chest 1 view (Results Pending) ED BEDSIDE ULTRASOUND: Performed by ED Physician - none LABS: Labs Reviewed CBC WITH AUTO DIFFERENTIAL COMPREHENSIVE METABOLIC PANEL TROPONIN I COMPLETE URINALYSIS WITH REFLEX TO CULTURE Narrative: The following orders were created for panel order Complete Urinalysis with reflex to Culture. Procedure Abnormality Status --------- ------ Complete Urinalysis[[id number]] Please view results for these tests on the individual orders. COMPLETE URINALYSIS All other labs were within normal range or not returned as of this dictation. EMERGENCY DEPARTMENT COURSE and DIFFERENTIAL DIAGNOSIS/MDM: Vitals: Vitals: 11/20/23 2242 BP: (!) 160/78 Pulse: 73 Resp: 18 Temp: 36.7 C (98.1 F) SpO2: 96% Weight: 78.5 kg (173 lb) Height: 1.676 m (5' 6) Patient presenting with possible worsening confusion vitals are stable she is awake alert she is oriented x 3 her NIH is 0 she is well-appearing benign abdominal exam no increased work of breathing. Plan check chemistry for electrolyte abnormalities. She has no infectious signs or symptoms we will check a chest x-ray and urinalysis and also her white count. Avoiding head scan if she has no headache head trauma focal numbness or weakness. She also has an intact neurologic exam. Workup is benign family is comfortable with her going home they are to stay with her this week and get her into primary care for further treatment. Diagnoses as of 11/21/23 0121 Altered mental status, unspecified altered mental status type Urinary tract infection without hematuria, site unspecified Medications - No data to display REVAL: CRITICAL CARE TIME CONSULTS: None PROCEDURES: Unless otherwise noted below, none Procedures Patients symptoms are consistent with sepsis, severe sepsis, or septic shock (If yes use .sepsiscoremeasure): FINAL IMPRESSION No diagnosis found. DISPOSITION PATIENT REFERRED TO: No follow-up provider specified. DISCHARGE MEDICATIONS: New Prescriptions No medications on file (Comment: Please note this report has been produced using speech recognition software and may contain errors related to that system including errors in grammar, punctuation, and spelling, as well as words and phrases that may be inappropriate. If there are any questions or concerns please feel freeto contact the dictating provider for clarification.) Joseph Akhtar MD (electronically signed) Emergency Medicine Provider Joseph Akhtar MD 11/20/23 0733 * Bryon Abad RN - 11/20/2023 10:30 PM EDT Pt brought in by family member for increased confusion and med clearance family states pt was lost for about 7 hrs today pt went out for a drive and states she was lost pt alert and follows commands pt alert to person place and date at present time. Family states she lives in [place] and was [facility] at [facility] in [place] this evening. Pt denies pain gait steady no faciial droop or slurred speech noted pt able to move all extremities approp documented in this [facility] Emergency department Note* Bryon Abad RN - 11/21/2023 1:05 AM EDT Urine spec sent to lab Bryon Abad RN 11/21/23 0106 [id number] Note* Bryon Abad RN - 11/21/2023 12:03 AM EDT Pt to bathroom, unable to produce urine at this time Bryon Abad RN 11/21/23 0004 [id number] Emergency department Note* Bryon Abad RN - 11/20/2023 11:55 PM EDT Port xray in progress Bryon Abad RN 11/20/23 1259 [id number] Emergency department Triage note* Bryon Abad RN - 11/20/2023 10:30 PM EDT Pt brought in by family member for increased confusion and med clearance family states pt was lost for about 7 hrs today pt went out for a drive and states she was lost pt alert and follows commands pt alert to person place and date at present time. Family states she lives in [place] and was found at [facility] in [place] this evening. Pt denies pain gait steady no faciial droop or slurred speech noted pt able to move all extremities approp [id number] Physician Emergency department Note* Michaelle Rowe PA-C - 11/20/2023 10:30 PM EDT I did not participate in the care of this patient. Michaelle Rowe PA-C 11/20/23 [address] Work Phone: [phone] 809-478206-29-2024 Physician Emergency department Note* Joseph Akhtar MD - 11/20/2023 10:30 PM EDT EMERGENCY DEPARTMENT ENCOUNTER Pt Name: Lavelle Rueda Birthdate 1945 Date of evaluation: 11/20/2023 ED Provider: Joseph Akhtar MD CHIEF COMPLAINT Chief Complaint Patient presents with Altered Mental Status HISTORY OF PRESENT ILLNESS (Location/Symptom, Timing/Onset, Context/Setting, Quality, Duration, Modifying Factors, Severity) Note limiting factors. I wore appropriate PPE for the entirety of this encounter. HPI Lavelle Rueda is a 78 y.o. who presents to the emergency department with chief complaint of concern for confusion patient has Alzheimer's she does live alone now but has strong family support andhome nursing. Today she drove her car for the first time in 3 years but was lost for about 7 hours until she was able to call family. Here she has no complaints denies headache vision changes focal numbness or weakness chest pain shortness of breath fevers cough congestion shortness of breath nausea vomiting diarrhea abdominal painurinary symptoms or rash. She also denies any medication drugs and alcohol. No recent falls or trauma. Nursing Notes were reviewed. Limitations to history: Outside historians: REVIEW OF SYSTEMS Review of Systems Pertinent positives and negatives as per HPI. PAST MEDICAL HISTORY Past Medical History: Diagnosis Date Alzheimer's dementia (HCC) CAD (coronary artery disease) Hyperlipidemia Hypertension Iron deficiency anemia Neuropathy SURGICAL HISTORY Past Surgical History: Procedure Laterality Date APPENDECTOMY 1952 CARDIAC CATHETERIZATION 10/30/2020 CARDIAC CATHETERIZATION 2005 1 stent to LAD CORONARY ARTERY BYPASS GRAFT 11/04/2020 CURRENT MEDICATIONS Previous Medications ALENDRONATE (FOSAMAX) 70 MG TABLET TAKE 1 TABLET BY MOUTH ONCE A WEEK WITH A FULL GLASS OF WATER ALIDA EMPTY STOMACH. DO NOT LIE DOWN FOR 30 MINUTES ASPIRIN 81 MG EC TABLET Take 81 mg by mouth. ATORVASTATIN (LIPITOR) 80 MG TABLET Take 1 tablet by mouth Nightly. BENZONATATE (TESSALON) 100 MG CAPSULE Take 100 mg by mouth 3 times daily as needed for cough. CALCIUM CARBONATE-VITAMIN D (CALCIUM-VITAMIN D3 PO) Take 1 tablet by mouth in the morning and 1 tablet in the evening. 600mg Ca - 800 IUs Vit D. CLOPIDOGREL (PLAVIX) 75 MG TABLET Take 1 tablet by mouth in the morning. CYANOCOBALAMIN (VITAMIN B-12) 1000 MCG TABLET Take 1,000 mcg by mouth in the morning. ESCITALOPRAM (LEXAPRO) 10 MG TABLET Take 1 tablet by mouth in the morning. FUROSEMIDE (LASIX) 40 MG TABLET Take 1 tablet by mouth in the morning and 1 tablet before bedtime. LEVOTHYROXINE (SYNTHROID, LEVOXYL) 25 MCG TABLET TAKE 1 TABLET BY MOUTH ONCE DAILY ON AN EMPTY STOMACH FOR THYROID MEMANTINE (NAMENDA) 10 MG TABLET Take 1 tablet (10 mg) by mouth 2 times daily. METOPROLOL SUCCINATE XL (TOPROL-XL) 50 MG 24 HR TABLET Take 25 mg by mouth in the morning. NORTRIPTYLINE (PAMELOR) 25 MG CAPSULE Take 25 mg by mouth in the morning and 25 mg before bedtime. ONDANSETRON ODT (ZOFRAN-ODT) 4 MG DISINTEGRATING TABLET DISSOLVE 1 TABLET IN MOUTH EVERY 6 HOURS ASNEEDED FOR NAUSEA AND VOMITING PANTOPRAZOLE (PROTONIX) 40 MG EC TABLET Take 40 mg by mouth every morning (before breakfast). POTASSIUM CHLORIDE CR (KLOR-CON M20) 20 MEQ ER TABLET Take 1 tablet by mouth in the morning and 1 tablet before bedtime. ALLERGIES Diazepam, Iodides, Iodinated contrast media, and Lisinopril FAMILY HISTORY No family history on file. SOCIAL HISTORY Social History Socioeconomic History Marital status: Tobacco Use Smoking status: Never Smokeless tobacco: Never Substance and Sexual Activity Alcohol use: Not Currently Drug use: Never SCREENINGS PHYSICAL EXAM ED Triage Vitals [11/20/23 2242] Temp Heart Rate Resp BP 36.7 C (98.1 F) 73 18 (!) 160/78 SpO2 Temp src Heart Rate Source Patient Position 96 % -- -- -- BP Location FiO2 (%) -- -- Physical Exam Vitals and nursing note reviewed. Constitutional: General: She is not in acute distress. Appearance: She is well-developed. HENT: Head: Normocephalic and atraumatic. Eyes: Conjunctiva/sclera: Conjunctivae normal. Cardiovascular: Rate and Rhythm: Normal rate and regular rhythm. Pulmonary: Effort: No respiratory distress. Abdominal: General: There is no distension. Tenderness: There is no abdominal tenderness. There is no guarding. Skin: General: Skin is warm and dry. Neurological: General: No focal deficit present. Mental Status: She is alert and oriented to person, place, and time. Comments: NH 3 strength sensation intact throughout she is ANO x 3 no aphasia dysarthria facial droop has normal extraocular movements no vision changes normal coordination Psychiatric: Mood and Affect: Mood normal. DIAGNOSTIC RESULTS Procedures/EKG: EKG was reviewed by myself. Physician EKG interpretation can be found in [facility] RADIOLOGY (Per Emergency Physician): Interpretation per the Radiologist below, if available at the time of this note: XR chest 1 view (Results Pending) ED BEDSIDE ULTRASOUND: Performed by ED Physician - none LABS: Labs Reviewed CBC WITH AUTO DIFFERENTIAL COMPREHENSIVE METABOLIC PANEL TROPONIN I COMPLETE URINALYSIS WITH REFLEX TO CULTURE Narrative: The following orders were created for panel order Complete Urinalysis with reflex to Culture. Procedure Abnormality Status --------- ------ Complete Urinalysis[[id number]] Please view results for these tests on the individual orders. COMPLETE URINALYSIS All other labs were within normal range or not returned as of this dictation. EMERGENCY DEPARTMENT COURSE and DIFFERENTIAL DIAGNOSIS/MDM: Vitals: Vitals: 11/20/23 2242 BP: (!) 160/78 Pulse: 73 Resp: 18 Temp: 36.7 C (98.1 F) SpO2: 96% Weight: 78.5 kg (173 lb) Height: 1.676 m (5' 6) Patient presenting with possible worsening confusion vitals are stable she is awake alert she is oriented x 3 her NIH is 0 she is well-appearing benign abdominal exam no increased work of breathing. Plan check chemistry for electrolyte abnormalities. She has no infectious signs or symptoms we will check a chest x-ray and urinalysis and also her white count. Avoiding head scan if she has no headache head trauma focal numbness or weakness. She also has an intact neurologic exam. Workup is benign family is comfortable with her going home they are to stay with her this week and get her into primary care for further treatment. Diagnoses as of 11/21/23 0121 Altered mental status, unspecified altered mental status type Urinary tract infection without hematuria, site unspecified Medications - No data to display REVAL: CRITICAL CARE TIME CONSULTS: None PROCEDURES: Unless otherwise noted below, none Procedures Patients symptoms are consistent with sepsis, severe sepsis, or septic shock (If yes use .sepsiscoremeasure): FINAL IMPRESSION No diagnosis found. DISPOSITION PATIENT REFERRED TO: No follow-up provider specified. DISCHARGE MEDICATIONS: New Prescriptions No medications on file (Comment: Please note this report has been produced using speech recognition software and may contain errors related to that system including errors in grammar, punctuation, and spelling, as well as words and phrases that may be inappropriate. If there are any questions or concerns please feel freeto contact the dictating provider for clarification.) Joseph Akhtar MD (electronically signed) Emergency Medicine Provider Joseph Akhtar MD 11/20/23 0377 [id number] Telephone encounter Note* Telephone Encounter - Rosalba Escamilla - 11/04/2023 1:19 PM EDT Medication name: memantine (Namenda) 10 MG tablet Medication dosage: Monthly quantity needed: 60 How many day supply requestin days Medication route: oral (PO) Medication administration time(s): 2 times a day (BID) If taking medication PRN, reason for taking medication: N/A If this is a controlled substance do you receive this or any other controlled medication from any other doctor or facility: No Ordering provider: Date of last office visit: 11/03/2023 Date of next office visit: 12/09/2023 Date of last refill: (see medication tab): 02/25/2024 Updated/Validated preferred pharmacy: Yes [facility] [address] [place] [address] Patient instructed to contact the pharmacy prior to picking up the medication: Yes [facility] [id number] Miscellaneous Notes* Telephone Encounter - Rosalba Escamilla - 11/04/2023 1:19 PM EDT Medication name: memantine (Namenda) 10 MG tablet Medication dosage: Monthly quantity needed: 60 How many day supply requestin days Medication route: oral (PO) Medication administration time(s): 2 times a day (BID) If taking medication PRN, reason for taking medication: N/A If this is a controlled substance do you receive this or any other controlled medication from any other doctor or facility: No Ordering provider: Date of last office visit: 11/03/2023 Date of next office visit: 12/09/2023 Date of last refill: (see medication tab): 02/25/2024 Updated/Validated preferred pharmacy: Yes [facility] [address] [place] [address] Patient instructed to contact the pharmacy prior to picking up the medication: Yes documented in this encounterSOhioHealth Grant Medical [id number] Telephone encounter Note* Telephone Encounter - Loreto Castro MA - 08/23/2023 4:24 PM EDT I spoke to Jinny and this patient has been scheduled. [id number] Miscellaneous Notes* Telephone Encounter - Loreto Castro MA - 08/23/2023 4:24 PM EDT I spoke to Jinny and this patient has been scheduled. * Telephone Encounter - Loreto Castro MA - 06/28/2023 3:35 PM EST November scheduled for [facility] not available yet. * Telephone Encounter - Edith Skinner - 06/28/2023 1:55 PM EST Name of Caller: Jinny Contact Reason for Appointment: 6 Month Follow up in November// Requesting [place] Location Office Name: [facility] Medication Refills need, if any: N/A Medication Name: N/A documented in this encounterSOhioHealth Grant Medical [id number] Miscellaneous Notes* Telephone Encounter - Kimberly Pan - 08/02/2023 11:22 AM EDT Patient has been identified by name and date of : Yes, [facility] nurse phones for refill(s): Requested Prescriptions Pending Prescriptions Disp Refills alendronate (FOSAMAX) 70 mg tablet 12 tablet 3 Sig: Take 1 tablet by mouth one time a week. Take with a full glass of water, on an empty stomach; do NOT lie down for 30minutes. Date of last office visit in primary care: 12/15/2022 Date of next office visit in primary care: 12/17/2023 Please advise. Thank you. Kimberly Townsend. documented in this encounterUniversity [facility]als [facility]02-[facility]-2024 Telephone encounter Note * Telephone Encounter - Loreto Castro MA - 06/28/2023 3:35 PM EST November scheduled for [facility] not available yet. [id number] Miscellaneous Notes* Telephone Encounter - Loreto Castro MA - 06/28/2023 3:35 PM EST November scheduled for [facility] not available yet. * Telephone Encounter - Edith Skinner - 06/28/2023 1:55 PM EST Name of Caller: Jinny Contact Reason for Appointment: 6 Month Follow up in Requesting [facility] Office Name: [facility] Medication Refills need, if any: N/A Medication Name: N/A documented in this encounterSOhioHealth Grant Medical [id number] Telephone encounter Note* Telephone Encounter - Edith Skinner - 06/28/2023 1:55 PM EST Name of Caller: Jinny Contact Reason for Appointment: 6 Month Follow up in Requesting [facility] Office Name: [facility] Medication Refills need, if any: N/A Medication Name: N/A [id number] Telephone encounter Note* Telephone Encounter - Lucinda Pinzon - 06/08/2023 9:08 AM EST Left message, due back in October. [facility] [id number] Miscellaneous Notes* Telephone Encounter - Lucinda Pinzon - 06/08/2023 9:08 AM EST Left message, due back in October. * Telephone Encounter - Doreen Fernando - 06/07/2023 1:11 PM EST Name of Caller: Jinny Contact Reason for Appointment: Caller would like to schedule a 6mo follow up for patient at the [facility]. Please advise Office Name: [facility] Medication Refills need, if any: Medication Name: documented in this encounterSOhioHealth Grant Medical [id number] Telephone encounter Note* Telephone Encounter - Doreen Amaraljessicacleo - 06/07/2023 1:11 PM EST Name of Caller: Jinny Contact Reason for Appointment: Caller would like to schedule a 6mo follow up for patient at the [facility]. Please advise Office Name: [facility] Medication Refills need, if any: Medication Name: [facility] [id number] Evaluation + Plan note* Assessment & Plan Note - Dyllan Galo MD - 05/10/2023 4:27 PM ESTAssociated Problem(s): Weight gain - weight up from 153 to 166 lbs in past 6 months, wearing winter clothes today when weighed - eating a large amount of pies, cakes, cookies, and other sweets that her significant other bringsover - family working on limiting portions and substituting sugar free options [facility] [id number] Miscellaneous Notes* Assessment & Plan Note - Dyllan Galo MD - 05/10/2023 4:27 PM ESTAssociated Problem(s): Weight gain - weight up from 153 to 166 lbs in past 6 months, wearing winter clothes today when weighed - eating a large amount of pies, cakes, cookies, and other sweets that her significant other bringsover - family working on limiting portions and substituting sugar free options * Assessment & Plan Note - Dyllan Galo MD - 05/10/2023 4:26 PM EST Associated Problem(s): Medication noncompliance due to cognitive impairment - missing doses 1-2 times weekly, usually on weekends - medications organized in pill box so family can find when she misses doses - working to improve compliance * Assessment & Plan Note - Dyllan Galo MD - 05/10/2023 4:25 PM EST Associated Problem(s): Debility - patient needing walker, no recent falls - working with a personal computer network analyst once a week, enjoying exercise - continue fall precautions * Assessment & Plan Note - Dyllan Galo MD - 05/10/2023 4:22 PM EST Associated Problem(s): Mixed Alzheimer's and vascular dementia (HCC) - MoCA score: 0/5 recall, MIS score: 5/15, CDT 05/30. Stable from October 2022 - continue memantine 10 mg BID - family working on strategies to increase medication compliance, using pillbox - Follow up in 6 months documented in this [facility]12-18-2023 Evaluation + Plan note* Assessment & Plan Note - Dyllan Galo MD - 05/10/2023 4:26 PM EST Associated Problem(s): Medication noncompliance due to cognitive impairment - missing doses 1-2 times weekly, usually on weekends - medications organized in pill box so family can find when she misses doses - working to improve compliance [facility] [id number] Evaluation + Plan note* Assessment & Plan Note - Dyllan Galo MD - 05/10/2023 4:25 PM ESTAssociated Problem(s): Debility - patient needing walker, no recent falls - working with a personal computer network analyst once a week, enjoying exercise - continue fall precautions [facility] [id number] Evaluation + Plan note* Assessment & Plan Note - Dyllan Galo MD - 05/10/2023 4:22 PM ESTAssociated Problem(s): Mixed Alzheimer's and vascular dementia (HCC) - MoCA score: 0/5 recall, MIS score: 5/15, CDT /. Stable from October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 Telephone Encounter - Radha Barraza LPN - 07/28/2022 6:56 PM EST Order ready to be faxed to [facility] after signed by PCP. Radha Barraza LPN * Telephone Encounter - Radha Barraza LPN - 07/28/2022 3:35 PM EST Patient to have imaging completed at [facility] due to needing to have IV and the results will be better using IV contrast. Patient's EC Jinny aware the order and pertinent charting will be faxed to [facility]. Radha Barraza LPN * Telephone Encounter - Jd Barger MD - 07/28/2022 1:30 PM EST Ask radiology if they can get adequate pictures of pancreatic lesion if no IV contrast were used. If not, then will get CT done at [facility]. If so, then will change order to be without IV contrast * Telephone Encounter - Nati Smith RN - 07/28/2022 12:00 PM EST Jinny calls back and states that they want to do whatever provider recommends. Patient does have CT Scan scheduled for tomorrow 07/29/2022. If provider wants patient to have done with contrast at [facility], Jinny is ok with this but she would have cancel CT scan tomorrow. Please let Jinny know which one provider recommends and they will get CT scan done. Please review and advise, Nati Smith RN * Telephone Encounter - Radha Barraza LPN - 07/28/2022 11:53 AM EST Left message on voicemail for Jinny (EC) to call office. Leaving decision up to patient/EC as to whether wanting pt to have scan done at [facility] and use IV contrast, or CC without contrast. Radha Barraza LPN * Telephone Encounter - Radha Barraza LPN - 07/28/2022 9:47 AM EST If patient needing to have contrast, CtScan will need to be scheduled at [facility] to have completed. If patient staying at to have imaging completed w/o contrast, will not need creatinine lab drawn. Need to update Babita Schonauer concerning where pt to have CtScan done. Ext [phone]. Radha Barraza LPN * Telephone Encounter - Jd Barger MD - 07/28/2022 12:51 AM EST As noted below--patient apparently tolerated contrast given at [facility] for CT done there. No true allergic reaction to CT contrast dye listed on chart or per patient's history. Would change order if patient declines iodine or radiology wants order changed, but since no actualallergy to CT contract dye noted, okay to do IV dye. Has labs ordered including metabolic panel--does patient need Cr prior to CT? * Telephone Encounter - Radha Barraza LPN - 07/27/2022 3:59 PM EST Spoke with Jinny Orellana/ANA for patient. Aware the charting found in [employer] states it makes patient not feel well. The last CT done at [facility] states W/WO IV contrast. Will update PCP in case changes needing to be made with present orders. Radha Barraza LPN * Telephone Encounter - Loreto Nayak RN - 07/27/2022 11:41 AM EST Jinny called in and reports she called the Pt and she cannot remember what her reaction was to theiodine. She reports the Pt has Alzheimer's and it was such a long time ago. She states Pt was just at the hospital and had 2 scans done. She states she doesn't know if either of those were with contrast, but providers office could call [facility] and see. Called and talked with Radha providers nurse and shesaid she would get the records from Pts hospital visit and look into it. * Telephone Encounter - Radha Barraza LPN - 07/27/2022 9:29 AM EST Left message on patient's voicemail to call office [place]. Patient has iodine allergy and is to have Ctscan on 07/28/2022. Needing to know reaction to the iodine in the past. If unable to pre-medicate for the scan due to severity of reaction,patient will need to go to hospital to have completed. As soon as determined reaction to iodine, message Babita Carter at [phone]. Radha Barraza LPN documented in this encounterUniversity Hospitals [facility] Center02-22-2023 Miscellaneous Notes* Telephone Encounter - Jd Barger MD - 07/15/2022 7:27 PM EST Recent one done at This a workman's compensation patient Jd Barger MD July 15, 2022 states was done with contrast. See below. No mention of oral contrast but that should not be an issue. Abdomen W/WO IV Contrast [facility] Imaging Services [address] [place] [id number] Abdomen W/WO IV Contrast MR#: [id number] Acct: [id number] Name: LAVELLE RUEDA Rep #: [id number] : 1945 F 76 From: Ana Oneill PCP: Dr. Jd Barger MD Status: ADM AMANDA Study: Abdomen W/WO IV Contrast Date of Exam: 2 Exam# [id number] Ordering Dr: Gisela Chandler DO INDICATION: liver mass/pancreatic mass EXAMINATION: CT ABDOMEN WITH AND WITHOUT CONTRAST TECHNIQUE: Helically acquired images were obtained of the abdomen both before and after IV contrast. A radiation dose optimization technique was used for this scan. IV Contrast dosage and agent: Oral contrast: None. COMPARISON: CT abdomen and pelvis 05/22/2022, and report. FINDINGS: LOWER CHEST: Unremarkable. LIVER: Liver mass. GALLBLADDER/BILE DUCTS: Unremarkable. PANCREAS: Subtle area of decreased attenuation again noted in the pancreatic head as on the prior CT. No discrete mass identified. No adjacent inflammatory changes.. SPLEEN: Unremarkable. ADRENAL GLANDS: Unremarkable. KIDNEYS / URETERS: There are 3 small low attenuation structures in the right kidney, largest at the lower pole is 1 cm, measure greater than water attenuation. Density is difficult to adequately assess given subtle degree of motion on all series. There is also a tiny hyperdense structure in the right kidney interpolar which may be a hyperdense cyst. A few tiny cortical hypodensities in the left kidney may be tiny cysts and are not completely characterized. There is focal parenchymal thinning in the right kidney likely scarring. No hydronephrosis. BOWEL / MESENTERY: Unremarkable. No bowel obstruction. PERITONEUM: No free air. No free fluid. VESSELS: Abdominal aorta is normal caliber. RETROPERITONEUM: Unremarkable. ABDOMINAL WALL: Unremarkable. BONES: No acute abnormality. OTHER: None. CT/Abdomen W/WO IV Contrast IMPRESSION: 1. Right renal lesions 3 small hypodense lesions, largest 1 cm, not corresponding with simple cysts, although difficult to characterize due to small size and component of motion. Given the small size, renal ultrasound may be helpful to assess for cyst, or MRI. 2. Ill-defined hypodensity in the pancreatic head again noted with no well-defined mass. Follow-up CT abdomen and pelvis pancreas protocol in 3 months. 3. No hepatic mass identified. Electronically Signed: Ana Lacey MD at 20:25 EST , CC: Dr. Gisela Chandler DO; Dr. Jd Barger MD Manager Star: Signed * Telephone Encounter - Rosaline Quinonez RN - 07/15/2022 2:57 PM EST Patient's niece, Jinny returned call. She is unaware of patient's specific allergies and patient is no longer able to clarify information due to dementia. She says if she had a procedure recently with contrast and tolerated it then it would probably be okay. If it was awhile ago, she prefers no contrast. Rosaline Quinonez RN * Telephone Encounter - Christi Melendez LPN - 07/15/2022 2:36 PM EST There are multiple numbers. Message left with mobile to return call to a nurse to review IV dye allergy concerns with pt per pcp. * Telephone Encounter - Jd Barger MD - 07/13/2022 10:42 PM EST Check with radiology and patient about contrast dye allergy listed on chart. According to CT done at [facility], this was done with IV contrast I ordered with contrast since looks like they were able to tolerate the IV contrast but still need to verify with patient and radiology whether okay to proceed with contrast * Telephone Encounter - JAMEY Goncalves - 07/11/2022 1:24 PM EST Please add order for CT scan from 06/23/2022 to active requests to get scheduled. Thank you. documented in this encounterUniversity Hospitals [facility]02-09-2023 Miscellaneous Notes* Telephone Encounter - Madie Leal LPN - 07/02/2022 4:37 PM EST Order has been faxed to [facility] at FAX #: [phone] * Telephone Encounter - Margo Marinelli APRN.CNS - 07/02/2022 4:33 PM EST OK, please schedule at her preferred PT location * Telephone Encounter - Alice Hinds RN - 07/02/2022 4:21 PM EST Uziel, PT states for recovery of colitis as well as unsteady gait and balance disorder. Alice Hinds RN * Telephone Encounter - Margo Marinelli APRN.CNS - 07/02/2022 4:15 PM EST Ok but for what diagnosis / problem? * Telephone Encounter - Alice Hinds RN - 07/02/2022 3:58 PM EST Uziel with [facility] PT calling to request an outpatient physical therapy order for patient. Once order placed, please fax to [facility] at FAX #: [phone]. No call back needed. Thank you. documented in this encounterUniversity Hospitals [facility] Center01-31-2023 History of Present illness Narrative* Jd Barger MD - 06/23/2022 2:34 PM EST This note was created using ?riter. Subjective Lavelle Rueda is a 76 year old female. Patient presents with: F/U 6 months: Discharge [facility] 06/02/2022 SUBJECTIVE: Lavelle Rueda is a 76 year old year old lady here today for 6 month follow up appointment for review of medical conditions. Overall doing much better since had acute colitis and was admitted. Getting around with walker troy.r Having home PT Runny nose and postnasal drip No sinus pain or pressure. Drainage is clear. No ear pain or pressure. No ill exposures Has humidifier. Needs updated LW and HCDPOA copied into chart. HCDPOA is brother Nayeli Orellana (contact info on chart) PAST MEDICAL HISTORY Diagnosis Date Anxiety state, unspecified Coronary artery disease ASHD, sees Dr. Sanabria Depressive disorder, not elsewhere classified Disorder of bone and cartilage, unspecified Diverticulosis of colon (without mention of hemorrhage) Generalized osteoarthrosis, unspecified site Hyperlipidemia Internal hemorrhoids without mention of complication Peripheral neuropathy Feet constant with pain and numbness; sometimes hands affected Retinal defect tear in left retine, repaired with laser surgery Snoring Unspecified essential hypertension Current Outpatient Medications Medication Sig benzonatate (TESSALON PERLE) 100 mg capsule Take 1 capsule by mouth three times daily as needed. levothyroxine (SYNTHROID) 25 mcg tablet Take 1 tablet by mouth once daily. Take on empty stomach. For thyroid. ondansetron orally disintegrating (ZOFRAN ODT) 4 mg disintegrating tablet Take 1 tablet by mouth every 6 hours as needed for nausea/vomiting. cyanocobalamin (VITAMIN B-12) 1,000 mcg tab Take 1,000 mcg by mouth. pantoprazole [address] (PROTONIX) 40 mg tablet Take 1 tablet by mouth once daily. escitalopram oxalate (LEXAPRO) 10 mg tablet Take 1 tablet by mouth once daily. nortriptyline (PAMELOR) 25 mg capsule Takes 25 mg twice a day to three times daily as needed for flare up of depression symptoms. Stops when not needing atorvastatin (LIPITOR) 20 mg tablet Take 4 tablets by mouth daily at bedtime. For cholesterol. metoprolol succinate ER (TOPROL XL) 50 mg 24 hr tablet Take 25 mg by mouth once daily. nitroglycerin sublingual (NITROQUICK) 0.4 mg SL tablet Dissolve 1 tablet under the tongue every 5 minutes as needed. furosemide (LASIX) 40 mg tablet Take 1 tablet by mouth twice daily. (per cardiology) aspirin, enteric coated (ASPIRIN, ENTERIC COATED) 81 mg EC tablet Take 1 tablet by mouth once daily. cholecalciferol (VITAMIN D3) 1,000 unit tab tablet Take 5 tablets by mouth once daily. clopidogrel (PLAVIX) 75 mg tablet Take 1 tablet by mouth once daily. ([facility]) donepezil (ARICEPT) 5 mg tablet Take 1 tablet by mouth once daily. triamcinolone acetonide (NASACORT) 55 mcg nasal inhaler Use 2 Sprays in the nose once daily as needed. For nasal congestion potassium chloride (K-TAB) 10 mEq tablet Take 2 tablets by mouth twice daily. ([facility];needs 10meq; 20 meq too large) No current facility-administered medications for this visit. Review of Systems Objective BP 116/78 Pulse 84 Temp 36.2 C (97.1 F) Resp 18 Wt 69.1 kg (152 lb 4.8 oz) SpO2 99% BMI24.58 kg/m Last 5 Encounter Wt Readings: Date: Wt: 06/23/2022 69.1 kg (152 lb 4.8 oz) 05/22/2022 69 kg (152 lb 3.2 oz) 05/14/2022 71.2 kg (157 lb) 05/02/2022 74.4 kg (164 lb) 03/30/2022 73.9 kg (163 lb) No waist measurement recorded Estimated body mass index is 24.58 kg/m as calculated from the following: Height as of 07/07/21: 167.6 cm (5' 6). Weight as of this encounter: 69.1 kg (152 lb 4.8 oz). Last 5 Encounter BP Readings: Date: BP: 06/23/2022 116/78 05/22/2022 160/77 05/14/2022 126/88 05/02/2022 142/82 03/30/2022 126/88 Physical Exam Constitutional: Appearance: Normal appearance. HENT: Head: Normocephalic. Eyes: Conjunctiva/sclera: Conjunctivae normal. Cardiovascular: Rate and Rhythm: Normal rate and regular rhythm. Heart sounds: Normal heart sounds. Pulmonary: Effort: Pulmonary effort is normal. Breath sounds: Normal breath sounds. Abdominal: General: Abdomen is flat. Bowel sounds are normal. Palpations: Abdomen is soft. Skin: General: Skin is warm and dry. Neurological: General: No focal deficit present. Mental Status: She is alert and oriented to person, place, and time. Psychiatric: Mood and Affect: Mood normal. Behavior: Behavior normal. Thought Content: Thought content normal. Judgment: Judgment normal. Abdomen/Pelvis W IV Cont ONLY [facility] Imaging Services [address] [place] [address] Abdomen/Pelvis W IV Cont ONLY MR#: [id number] Acct: [id number] Name: LAVELLE RUEDA Rep #: [id number] : 1945 F 76 From: Marycruz lira MD PCP: Dr. Jd Barger MD Status: REG ER Study: Abdomen/Pelvis W IV Cont ONLY Date of Exam: Exam# [id number] Ordering Dr: Jaren Miller MD EXAM: CT ABDOMEN AND PELVIS WITH INTRAVENOUS CONTRAST CLINICAL INDICATION: Guarding, elevated white count TECHNIQUE: Helically acquired images were obtained of the abdomen and pelvis with intravenous contrast. This CT exam was performed using one or more of the following dose reduction techniques: automated exposure control, adjustment of the mA and/or kV according to patient size, and/or use of iterative reconstruction technique. This report was created using [employer] report generation technology. CONTRAST: IV 100mL Isovue-300 COMPARISON: 12/29/2020. FINDINGS: LOWER THORAX: Unremarkable. Lung bases are clear. No cardiomegaly. No significant pericardial effusion. ABDOMEN: LIVER: Unremarkable. Homogeneous. No focal mass. GALLBLADDER AND BILE DUCTS: Unremarkable. No calcified gallstones. No gallbladder distention or wall edema. No intra- or extrahepatic biliary ductal dilation. PANCREAS: Subtle low attenuation in the head of the pancreas measuring approximately 1.4 x 1.3 cm, seen on series 2 image 33. No enhancing rim. No peripancreatic inflammatory stranding. No focal cystic or solid mass. SPLEEN: Unremarkable. Normal size without focal cystic or solid mass. ADRENALS: Unremarkable. No nodules. KIDNEYS AND URETERS: 1.2 cm low-attenuation lesion in the lower pole of the right kidney with CT density of 37 Hounsfield units. This is not consistent with a simple cyst. Additional subcentimeter hypodensities are too small to characterize. Right renal scarring is also noted. STOMACH AND BOWEL: Trace indistinctness and inflammatory pericolonic stranding of the descending colon. No bowel obstruction. PELVIS: APPENDIX: No evidence of acute appendicitis. BLADDER: Unremarkable. REPRODUCTIVE: Unremarkable as visualized. No mass. ABDOMEN and PELVIS: INTRAPERITONEAL SPACE: Unremarkable. No ascites or other fluid collection. No free air. BONES/JOINTS: Subacute fracture of the left pubic ramus with mild bridging callus. This is new compared to the prior study. No additional fracture. No suspicious lytic or blastic abnormality. SOFT TISSUES: Unremarkable. No discrete abdominal or pelvic wall hernia. VASCULATURE: Unremarkable. Abdominal aorta is normal in caliber. LYMPH NODES: Unremarkable. No enlarged lymph nodes. CT/Abdomen/Pelvis W IV Cont ONLY IMPRESSION: 1. Mild pericolonic stranding around the descending colon. Question infectious or inflammatory colitis. 2. Low attenuation in the pancreatic head concerning for organizing collection versus malignancy. Three-month follow-up is recommended. 3. Right hepatic hypodensity not consistent with a simple cyst. ACR White Paper guidelines (Herts, et al. JACR 2018; 15(2):264-273) recommend CT without and with intravenous contrast. 4. Subacute pubic ramus fracture. Electronically Signed: Marycruz Oneill MD at 17:54 EST Reading Location ID and State: [id number] / Tel , Service support , Assessment and Plan Encounter Diagnosis ICD-10-CM 1. Acute colitis K52.9 CT ABD/PEL W IVCON iv contrast (will be provided with radiology test) enteric contrast (will be provided with radiology test) Resolved after antibiotic at [facility] and finished at home 2. Pancreatic lesion K86.9 CT ABD/PEL W IVCON iv contrast (will be provided with radiology test) enteric contrast (will be provided with radiology test) 3. Infection in abdomen (HCC) K65.9 CT ABD/PEL W IVCON Above issues addressed with patient. Patient involved in shared decision making for management of medical issues. History and medications reviewed. Epic updated as needed Refills and/or prescriptions taken care of and meds adjusted as indicated after reviewed history, exam and labs. Health Maintenance reviewed. Updated record and/or ordered tests as recorded. Encouraged on efforts at healthy diet and regular exercise and adequate sleep. Follow up CT scan as discussed. Further evaluation and treatment as indicated. I spent a total of 47 minutes on the date of the service which included [id number] patient care, completing clinical documentation, obtaining and/or reviewing separately obtained history, performing a medically appropriate examination, counseling and educating the patient/family/caregiver, ordering medications, tests, or procedures, independently interpreting results (not separately reported), and communicating results to the patient/family/caregiver. Jd Barger MD documented in this encounterUniversity Hospitals Conneaut Medical Center01-25-2023 Miscellaneous Notes* Telephone Encounter - Marycruz Skaggs LPN - 06/17/2022 11:35 AM EST Jinny called back and information listed below given. Jinny reports pt is doing better and will keep apt 06-23-22. Will discuss GI apt then. Marycruz Skaggs LPN * Telephone Encounter - Loreto Nayak RN - 06/15/2022 8:21 AM EST Called and left a voicemail for the Patient's sister in law Jinny to call back and ask for a nurseto receive the providers message. Loreto Nayak RN * Telephone Encounter - Jd Barger MD - 06/13/2022 3:56 PM EST 1) would try to move up appointment with GI 2) can try to move up appointment with me (or Suri or Margo) to address symptoms as well. * Telephone Encounter - Loreto Nayak RN - 06/11/2022 3:05 PM EST Pts sister in law called in and reports Pt has been home from the hospital for about a week now, and she was in for about 10 days. She reports she is regressing to how she was before she went into the hospital. She states the Pt threw up at a doctors appointment on Wednesday. Today she had a large diarrhea. She follows up with this provider in 06/23/22, and they couldn't get in to see Dr Alejandre until August. She said when she was in the hospital they had found that she had Colitis. She is asking whatprovider feels she should do, if she should move up appointment with this provider. Please call and[employer]. documented in this encounterUniversity Hospitals Conneaut Medical Center01-18-2023 Miscellaneous Notes* Telephone Encounter - Suri Welsh APRN.CNP - 06/10/2022 3:04 PM EST Noted, agree * Telephone Encounter - Mariluz Jaimes LPN - 06/10/2022 2:55 PM EST Octavia from [facility] Home Health calling with OT plan of care. Delay of start of care due to getting insurance authorization, 1 visit weekly for 1 week, then 2 visits weekly for 3 weeks working on ADL's trying to get patient moving about. She does not need a call back at all. documented in this encounterUniversity Hospitals Conneaut Medical Center01-13-2023 Miscellaneous Notes* Telephone Encounter - Renetta Ayon LPN - 06/05/2022 2:45 PM EST Franchesca aware of same. * Telephone Encounter - Suri Welsh APRN.CNP - 06/05/2022 11:23 AM EST Please let them know this is okay, we actually do not have Celebrex on her medication list either. If she is having issues with a lot of joint pain then let us know. Thanks * Telephone Encounter - Ani Jones RN - 06/05/2022 11:04 AM EST Franchesca- [facility]- reports therapy saw patient and review of med list shows patient has everything except celebrex- patient is no longer taking celebrex. Asking if this is ok? Please phone HH with reply. documented in this encounterUniversity Hospitals Conneaut Medical Center01-13-2023 Miscellaneous Notes* Telephone Encounter - Margo Marinelli APRN.CNS - 06/05/2022 7:15 AM EST Noted, OK. * Telephone Encounter - Alice Hinds RN - 06/04/2022 4:31 PM EST Melissa, a PT with [facility] calling to give plan of care for patient. PT plans to see patient 1 time per week for 1 week, then 2 times per week for 4 weeks. No call back needed if PCP agreeable. Thank you. documented in this encounterUniversity Hospitals Conneaut Medical Center01-11-2023 Miscellaneous Notes* Telephone Encounter - Juanita Amezquita RN - 06/03/2022 12:23 PM EST Call placed to Michaelle with [facility] and verbal order given for provider to follow patient for care orders PT/OT. Juanita Amezquita RN * Telephone Encounter - Suri Welsh APRN.CNP - 06/03/2022 11:41 AM EST Yes, ok to let them know that we will follow. * Telephone Encounter - Loreto Nayak RN - 06/03/2022 11:33 AM EST Michaelle with [facility] called and reports she received a referral for PT/OT for the patient. She was calling to make sure provider would follow orders. documented in this encounterUniversity Hospitals Conneaut Medical Center01-03-2023 Miscellaneous Notes* Telephone Encounter - Radha Barraza LPN - 05/26/2022 8:00 PM EST Will have PSS assist patient in scheduling follow up appointment. Radha Barraza LPN * Telephone Encounter - Jd Barger MD - 05/25/2022 6:50 PM EST See MyChart reply * Telephone Encounter - Diane Mendez MA - 05/22/2022 12:44 PM EST FYI: At neurology OV today Dr. Chavez referred patient to [facility] ED. Diane Mendez MA documented in this encounterUniversity Hospitals Conneaut Medical Center12-30-2022 History of Present illness Narrative* Mark Chavez Jr., MD - 05/22/2022 11:37 AM EST ESTABLISHED HISTORY AND PHYSICAL EXAM PRIMARY CARE PHYSICIAN: Jd Barger MD REFERRING PHYSICIAN: Mark Chavez Jr., MD CHIEF COMPLAINT: Follow Up HISTORY OF PRESENT ILLNESS: Lavelle Rueda is a 76 year old female, with a PMH significant for and per last office visit on 04/25/21: Patient with reported R occipital stroke s/p CABG x4 in October 2020. Pt still recovering from cardiacstandpoint with HUTTON and fatigue. However, patient reports no focal weakness, numbness, or other focal neuro deficits. Records reviewed, and while uncertain if all are available at this time, from those available, appears that additional stroke workup necessary. Patient's family reports stroke was felt to be cardioembolic. However, no MRI, vessel imaging or lead atg developer performed to determine if possible other etiology. Concern that stroke may be involving greater extent than R occipital lobegiven memory complaints. Of note only deficit on exam is left homonymous hemianopia that correlateswith location of reported stroke, but pt and family were not aware of this deficit until today. Discussed with them stroke risks factors, prevention, and prognosis. They agree with plan as follows, with additional therapies to be determined based on results. -MRI brain to evaluate for extent of stroke and to determine if more than occipital lobe involved. -MRA of brain and neck to evaluate for large vessel disease as cause of stroke. -Continue ASA for now. -Advised pt to follow up with her conference specialist as should have formal visual field testing and may benefit from prism lenses. -Continue PT/OT. -Zio 14 day monitor to further evaluate for afib (further supported by pt's family reporting they heard someone mention the diagnosis of afib during hospital stay -- would support possible need for anticoagulation. -Continue statin therapy. -BP goal <140/90. -Glucose goal <140. -Finally given episodes of zonging out and possible fluctuations in cognition, will get EEG to evaluate for seizure activity given cortical infarct. Pt saw Elroy Zhang CNP on 06/04/21 and per note: H53.462 Left homonymous hemianopsia (primary encounter diagnosis) Z86.73 History of CVA (cerebrovascular accident) G31.84 Cognitive impairment, mild, so stated F80.9 Language impairment R44.3 Hallucinations I66.9 Stenosis of intracranial vessel Comment: Patient previously seen for R occipital stroke following CABG x4 in 10/2020. Currently without focal neurological deficits other than vision changes previously noted on exam. Exam today limited due to virtual platform. Since previous visit MRI of brain completed. Report noting old R posterior temporal lobe infarct and R lateral occipital lobe infarct. Also noting small acute cortical infarcts to R temporal lobe as well as subacute lacunar infarct in L frontal lobe. MRA of brain with finding of severe stenosis. Discussed findings with patient and family including correlation between location of infarcts and visual/cognitive deficits. As imaging shows both subacute and acute infarcts and patient has been on ASA, will stop ASA and instead start Plavix 75mg daily. Will also have patient follow up with cerebrovascular center regarding large vessel disease. EEG completed and without epileptiform discharges or seizures. Pt also wore outpatient lead atg developer with run of SVT but no other cardiac arrhythmias. 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 At this time goals remain BP <140/90 and BG <140. Continue statin as previously prescribed and continue PT/OT. Pt also saw Jaspreet Fernandes on 07/07/21. Per his note: Severe diffuse intracranial atherosclerotic disease. Discovered during work-up for strokes after quadruple bypass surgery in October 2020. Imaging demonstrates diffuse multifocal disease. Most severe disease is noted in the right middle cerebral and bilateral posterior cerebral artery distributions, but there is likely distal left middle cerebral artery distribution disease present as well. I had an extensive discussion with the patient and family about available management options. I explained that endovascular intervention may be only available as a last resort for focal intracranial disease, but diffuse vascular atherosclerosis is not amenable to endovascular therapy. I recommend aggressive medical management of vascular risk factors, including blood pressure and cholesterol. In addition, a short 3-month course of dual antiplatelet therapy with aspirin and clopidogrel appears reasonable based on available data. I also recommend continued rehabilitation, healthy diet and exercise. PLAN Diffuse intracranial atherosclerotic disease not amenable to endovascular therapy. See discussion above Dual antiplatelet therapy for 3 months, then resume clopidogrel monotherapy Aggressive medical management of vascular risk factors. Avoid hypotension Education provided Wed had an event with home health aid in which pt was shaky getting out of the shower, sat down on toilet, leaned against wall and was unresponsive and starting, and then vomited. Patient then came around. Patient has no recollection of event. They did not seek med attention but instead made appoint ment to be seen today. Patient also with recurrent vomiting for the past 3 weeks, with events this week occurring now x4. Denies abdominal pain at this time but family reports this is not true and that she is reporting abdominal pain frequency. Patient also with nose bleed at this time but not new.Vomiting is not associated with any events. Denies headache. Denies vision changes. No pain in throat. Denies abdominal pain but then endorses lower abdominal pain rachana. Patient having diarrhea every once in a while. No new weakness, but then family reports legs are shaking a whole lot. Started on Aricept but that was well over 1 month ago, and this dose was lowered during onset of above symptoms with no improvement of symptoms. Also increase coughing, but states non- productive. Denies CP or SOB, but family reports she is breathing heavy. Family adds that patient is also having episodes where she appears to be staring off and unresponsive yet talking to someone. REVIEW OF SYSTEMS GENERAL:No weight loss, malaise or fevers. HEENT:Negative for frequent or significant headaches, No changes in hearing or vision, no nose bleeds or other nasal problems NECK:Negative for lumps, goiter, pain and significant neck swelling RESPIRATORY: Negative for cough, wheezing or shortness of breath. CARDIOVASCULAR: Negative for chest pain, leg swelling or palpitations. GASTROINTESTINAL: See HPI. GENITOURINARY: No history of dysuria, frequency or incontinence MUSCULOSKELETAL: Negative for joint pain or swelling, back pain or muscle pain. NEUROLOGIC:See HPI. SKIN:Negative for lesions, rash, and itching. HEMATOLOGIC/LYMPHATIC/IMMUNOLOGIC:Negative for prolonged bleeding, bruising easily or swollen nodes. ENDOCRINE: Negative for cold or heat intolerance, polyuria, polydipsia and goiter. The remainder of the ROS was reviewed and is negative. LAB/IMAGING: Reviewed and include: WBC (k/uL) Date Value 05/03/2020 6.28 RBC (m/uL) Date Value 05/03/2020 4.86 Hemoglobin (g/dL) Date Value 05/03/2020 14.2 Hematocrit (%) Date Value 05/03/2020 45.6 MCV (fL) Date Value 05/03/2020 93.8 MCH (pG) Date Value 05/03/2020 29.2 MCHC (g/dL) Date Value 05/03/2020 31.1 RDW-CV (%) Date Value 05/03/2020 13.5 Platelet Count (k/uL) Date Value 05/03/2020 253 MPV (fL) Date Value 05/03/2020 12.1 Glucose (mg/dL) Date Value 04/07/2022 89 BUN (mg/dL) Date Value 04/07/2022 8 Creatinine (mg/dL) Date Value 04/07/2022 0.77 Sodium (mmol/L) Date Value 04/07/2022 138 Potassium (mmol/L) Date Value 04/07/2022 4.3 Chloride (mmol/L) Date Value 04/07/2022 104 CO2 (mmol/L) Date Value 04/07/2022 23 Protein, Total (g/dL) Date Value 04/07/2022 7.5 Albumin (g/dL) Date Value 04/07/2022 4.2 Calcium, Total (mg/dL) Date Value 04/07/2022 9.4 Alkaline Phosphatase (U/L) Date Value 04/07/2022 191 (H) Bilirubin, Total (mg/dL) Date Value 04/07/2022 0.4 AST (U/L) Date Value 04/07/2022 34 ALT (U/L) Date Value 04/07/2022 28 DEVON (no units) Date Value 07/07/2017 Positive (A) MEDICATIONS: ondansetron orally disintegrating (ZOFRAN ODT) 4 mg disintegrating tablet Take 1 tablet by mouth every 6 hours as needed for nausea/vomiting. donepezil (ARICEPT) 10 mg tablet Take 10 mg by mouth. triamcinolone acetonide (NASACORT) 55 mcg nasal inhaler Use 2 Sprays in the nose once daily as needed. For nasal congestion benzonatate (TESSALON PERLE) 100 mg capsule Take 2 capsules by mouth three times daily as needed for cough for up to 10 days. doxycycline (VIBRA-TABS) 100 mg tablet Take 1 tablet by mouth twice daily for 10 days. antibiotic, take with food cyanocobalamin (VITAMIN B-12) 1,000 mcg tab Take 1,000 mcg by mouth. pantop[address] (PROTONIX) 40 mg tablet Take 1 tablet by mouth once daily. escitalopram oxalate (LEXAPRO) 10 mg tablet Take 1 tablet by mouth once daily. nortriptyline (PAMELOR) 25 mg capsule Takes 25 mg twice a day to three times daily as needed for flare up of depression symptoms. Stops when not needing melatonin 10 mg tab Take 1 tablet by mouth daily at bedtime. atorvastatin (LIPITOR) 20 mg tablet Take 4 tablets by mouth daily at bedtime. For cholesterol. metoprolol succinate ER (TOPROL XL) 50 mg 24 hr tablet Take 25 mg by mouth once daily. levothyroxine (SYNTHROID) 25 mcg tablet Take 1 tablet by mouth once daily. Take on empty stomach. For thyroid. clopidogrel (PLAVIX) 75 mg tablet Take 1 tablet by mouth once daily. nitroglycerin sublingual (NITROQUICK) 0.4 mg SL tablet Dissolve 1 tablet under the tongue every 5 minutes as needed. furosemide (LASIX) 40 mg tablet Take 1 tablet by mouth twice daily. (per cardiology) cholecalciferol (VITAMIN D3) 5,000 unit tab Take 5,000 Units by mouth once daily. aspirin, enteric coated (ASPIRIN, ENTERIC COATED) 81 mg EC tablet Take 1 tablet by mouth once daily. HISTORIES PAST MEDICAL HISTORY Diagnosis Date Anxiety state, unspecified Coronary artery disease ASHD, sees Dr. Sanabria Depressive disorder, not elsewhere classified Disorder of bone and cartilage, unspecified Diverticulosis of colon (without mention of hemorrhage) Generalized osteoarthrosis, unspecified site Hyperlipidemia Internal hemorrhoids without mention of complication Peripheral neuropathy Feet constant with pain and numbness; sometimes hands affected Retinal defect tear in left retine, repaired with laser surgery Snoring Unspecified essential hypertension FAMILY HISTORY Problem Relation Age of Onset Heart Mother [place], Arthritis Father Rheumatoid Heart Maternal Grandfather Heart Paternal Grandfather Heart Maternal Uncle [place], Bi Pass Surgery Lipids Brother High Cholesterol Arthritis Other Maternal side of family Colon Cancer Paternal Uncle SOCIAL HISTORY Social History Tobacco Use Smoking status: Never Smokeless tobacco: Never Substance Use Topics Alcohol use: Yes Comment: Rarely Drug use: No PHYSICAL EXAMINATION Blood pressure 160/77, pulse 96, temperature 36.6 C (97.8 F), temperature source Temporal, resp. rate 16, weight 69 kg (152 lb 3.2 oz), SpO2 99 %. GENERAL EXAM: General appearance: NAD, pleasant. HEENT: NC/AT, nasal congestion absent, no oral lesions, membranes moist. NECK: ROM nml. Lungs: CTA bilaterally. CV: Tachy. Abd: +Tender throughout abd but greater in rachana LQ. Indicates she is going to throw up with slightest attempt to deep palp. +Rebound tenderness in RLQ. Extr: No cyanosis, clubbing or edema. Cap refill ~3 sec. Skin: Cool to touch. NEUROLOGICAL EXAM: General: Awake, alert, oriented x3 (person,place,time), speech fluent, no dysarthria; comprehension, naming, repetition intact. CN: PERRL, EOMI and without nystagmus, L visual field cut, facial sensation and strength are normaland symmetric, hearing is intact to finger rub bilaterally, palate and tongue movements are intact and symmetric. SCM and trapezius strength normal. Motor: Normal tone, bulk and strength (5/5) bilaterally (throughout extremities x4). Coordination: FNF, FERNANDO, HTS intact. No tremors. Sensation: Light touch intact throughout. No evidence of neglect. Assessment and Plan: ASSESSMENT/PLAN: 1. Recurrent episodes of unresponsiveness - ICD9: 780.09, ICD10: R41.89 (primary diagnosis) Patient with episodes of unresponsiveness as above. Etiology uncertain. Possibly associated with known dementia, but need to also consider seizures as possible cause given risk factor of cortical infarcts. Also consider cardiac arrhythmia although there does not appear to have been a loss of posture. Still, no witnesses to the events present at this time. Needs further evaluation in acute settingincluding EEG (consider continuous), cardiac monitoring, and in addition given history of stroke, would recommend new head imaging as event might have represented TIA/stroke with no residual. 2. History of CVA (cerebrovascular accident) - ICD9: V12.54, ICD10: Z86.73 3. Left homonymous hemianopsia - ICD9: 368.46, ICD10: H53.462 4. Stenosis of intracranial vessel - ICD9: 437.0, ICD10: I66.9 No changes to prior recs, including continuation of Plavix if no contraindications. Continue statintherapy. BP goal <140/90. Glucose goal <140. Recs for new imaging as above. 5. Cognitive impairment, mild, so stated - ICD9: 331.83, ICD10: G31.84 On Aricept but starting and dosing does not appear to be associated with cough or GI symptoms. Appears on further review of notes was evaluated for URI outside of [facility] earlier this month. 6. Recurrent vomiting - ICD9: 787.03, ICD10: R11.10 7. Lower abdominal pain - ICD9: 789.09, ICD10: R10.30 Etiology uncertain. Emesis evaluated and no evidence of bile or blood - primarily food products. Very tender abdomen on exam. Concern given length of symptoms and increasing frequency of vomiting over past week. Again, needs acute evaluation in the ER - labs, imaging. Note that family would like to take pt to [facility] ER which is across the street from our office. They do not want EMS and feel they can transport pt with understanding of risks. I have contacted the ER staff at [facility] and have provided them history and will be providing this documentation to them as well [place]. Mark Chavez MD I spent a total of 50 minutes on the date of the service which included preparing to see the patient, [id number] patient care, completing clinical documentation, obtaining and/or reviewing separately obtained history, performing a medically appropriate examination, counseling and educating the pat ient/family/caregiver, communicating with other HCPs (not separately reported), and communicating results to the patient/family/caregiver. documented in this [facility]12-22-2022 History of Present illness Narrative* Ida Bell RT(R) - 05/14/2022 2:50 PM EST Radiology Service Progress Note PATIENT NAME: Lavelle Rueda DATE OF SERVICE: May 14, 2022 TIME: 2:42 PM PATIENT IDENTITY VERIFICATION COMPLETED USING TWO (2) IDENTIFIERS: Name and Date of confirmedby patient verbally. FALL SCREENING: Has the patient had 2 falls in the last year or 1 fall with injury or currently using an Ambulatory Assistive Device (Walker, Cane, Wheelchair, Crutches, etc.)? Yes, Patient High Riskfor Falls What interventions were put in place to prevent falls during this visit? Offered Assistance with Transfers/Clothing and Instructed Patient to Remain Seated (Not on Exam Table) Until Exam PATIENT GENDER DATA: Female. status: : No status: NO. PATIENT RELEVANT IMPLANT DATA REVIEWED: Not Applicable RADIOLOGY DEPARTMENT: General X-ray: Exam(s) Completed: Chest X-Ray PERIPHERAL IV DATA: Not applicable SIGNED BY: RT Reynaldo(R) May 14, 2022 2:42 PM documented in this [facility]12-22-2022 Miscellaneous Notes* Result Encounter Note - Margo Marinelli APRN.CNS - 05/14/2022 2:50 PM EST No acute findings CXR documented in this [facility]12-22-2022 Progress note* Result Encounter Note - Margo Marinelli APRN.CNS - 05/14/2022 2:50 PM EST No acute findings CXR [facility]12-22-2022 History of Present illness Narrative* Margo Marinelli APRN.PATIENT CARE SECRETARY - 05/14/2022 1:40 PM EST Evaluation for URI SUBJECTIVE Lavelle Rueda is a 76 year old female who presents with 3 weeks of symptoms that are about the same. PMH significant for ACTIVE PROBLEM LIST Essential Hypertension Anxiety State Depression Generalized Osteoarthrosis, Unspecified Site Pure Hypercholesterolemia Ashd (Arteriosclerotic Heart Disease) Lactose Intolerance Greater Trochanteric Bursitis of Both Hips Pain in Joint, Pelvic Region and Thigh Cad (Coronary Artery Disease) Osteoporosis Food Intolerance Chronic Diarrhea Tony (Generalized Anxiety Disorder) Anxiety and Depression Peripheral Neuropathy Hypothyroidism S/P Cabg X 4 Left Homonymous Hemianopsia History of Cva (Cerebrovascular Accident) Nstemi (Non-St Elevated Myocardial Infarction) (Hcc) Tachycardia Presents with SO that helps with HPI She reports cough x 3 weeks. Seen in 05/02/2022 for viral URI with cough treated with benzonatate. Acute conjunctivitis treated with polytrim. Negative for covid19 and influenza. Notes eyes are improved completely. Notes nausea no vomiting, not certain taking medications with food. Current symptoms include: Fever (?100.4F): No or Chills: No Cough: Yes, not productive Shortness of breath: shortness of breath on exertion Difficulty breathing: No Fatigue: No Muscle aches: No Headache: No New loss of smell or taste: No Sore throat: No Nasal congestion: Yes or Rhinorrhea: No Nausea: Yes or Vomiting: No Diarrhea: previously, no current OTC meds/remedies that patient has tried: Mucinex benzonatate Exposures: Sick contacts? Yes Family or close contacts with confirmed/probable COVID-19 in last 14 days? No She reports that she has never smoked. She has never used smokeless tobacco. OBJECTIVE PHYSICAL EXAM: BP 126/88 Pulse 76 Temp 36.9 C (98.5 F) Wt 71.2 kg (157 lb) SpO2 97% BMI 25.34 kg/m General appearance: alert, cooperative, pleasant, in no acute distress Head: Normocephalic Eyes: conjunctiva/corneas normal Ears: R TM - clear with good landmarks, nl light reflex, L TM - clear with good landmarks, nl lightreflex Nose: clear rhinorrhea, mucosa erythematous and swollen Oropharynx: moist without lesions Neck: supple and small, benign anterior cervical nodes bilaterally Heart: regular rate and rhythm, without murmur Lungs: clear to auscultation, without rales or wheeze, good air exchange ASSESSMENT/PLAN (R05.1) Acute cough (primary encounter diagnosis) (J06.9) Viral URI with cough (R06.02) SOBOE (shortness of breath on exertion) (R11.0) Nausea 1. Acute cough - ICD9: 786.2, ICD10: R05.1 (primary diagnosis) - BENZONATATE 100 MG CAPSULE - METHYLPREDNISOLONE 4 MG TABLETS IN A DOSE PACK - DOXYCYCLINE HYCLATE 100 MG TABLET - XR CHEST 2V FRONTAL/LAT 3. SOBOE (shortness of breath on exertion) - ICD9: 786.05, ICD10: R06.02 - BENZONATATE 100 MG CAPSULE - METHYLPREDNISOLONE 4 MG TABLETS IN A DOSE PACK - DOXYCYCLINE HYCLATE 100 MG TABLET - XR CHEST 2V FRONTAL/LAT 4. Nausea - ICD9: 787.02, ICD10: R11.0 - ONDANSETRON 4 MG DISINTEGRATING TABLET Margo Marinelli APRN.PATIENT CARE SECRETARY Medical Decision Making: Problems: Low: Acute, uncomplicated illness or injury Data: Unique test(s) ordered: 1 Risk: Moderate: Drug management Medical Decision Making Level: 3 - Low documented in this [facility] Miscellaneous Notes* Telephone Encounter - Orly Muñoz LPN - 05/05/2022 9:38 AM EST Patient notified.Orly Muñoz LPN * Telephone Encounter - Trena Dacosta - 05/05/2022 8:10 AM EST Left message for patient to return call. Trena Dacosta * Telephone Encounter - Trena Dacosta - 05/03/2022 10:55 AM EST Left message for patient to return call. Trena Dacosta * Telephone Encounter - Chapin Feliciano APRN.CNP - 05/03/2022 9:15 AM EST Please notify that covid/flu testing negative. Continue with plan of care as discussed during visit. documented in this [facility] History of Present illness Narrative* Shelbie Murphy APRN.CNP - 05/02/2022 3:05 PM EST Subjective Eye Problem Associated symptoms include congestion and coughing. Pertinent negatives include no chills, fever or sore throat. Lavelle Rueda is a 76 year old female who presents with bilateral eye redness andeyelid swelling for the past 3 days. She has also had a cough and body aches, hoarse voice, for thepast 3 days. She has not had any known sick contacts. She has not taken any medication for her sympt oms. Review of Systems Constitutional: Negative for chills and fever. HENT: Positive for congestion. Negative for ear pain and sore throat. Eyes: Positive for discharge and redness. Negative for blurred vision, photophobia and pain. Respiratory: Positive for cough. Cardiovascular: Negative. BP 142/82 Pulse 73 Temp 37.2 C (98.9 F) (Tympanic) Resp 18 Wt 74.4 kg (164 lb) SpO2 96% BMI 26.47 kg/m PAST MEDICAL HISTORY Diagnosis Date Anxiety state, unspecified Coronary artery disease ASHD, sees Dr. Sanabria Depressive disorder, not elsewhere classified Disorder of bone and cartilage, unspecified Diverticulosis of colon (without mention of hemorrhage) Generalized osteoarthrosis, unspecified site Hyperlipidemia Internal hemorrhoids without mention of complication Peripheral neuropathy Feet constant with pain and numbness; sometimes hands affected Retinal defect tear in left retine, repaired with laser surgery Snoring Unspecified essential hypertension PAST SURGICAL HISTORY Procedure Laterality Date APPENDECTOMY COLONOSCOPY FLX DX W/COLLJ SPEC WHEN PFRMD 09/01/07 COLONOSCOPY FLX DX W/COLLJ SPEC WHEN PFRMD 07/11/2018 Colonoscopy ESOPHAGOGASTRODUODENOSCOPY TRANSORAL DIAGNOSTIC 06/05/2019 EGD LAPS ABD PRTM&OMENTUM DX W/WO SPEC BR/WA SPX Laparoscopy LEFT HEART CATH,PERCUTANEOUS 02/2006 Cardiac cath, L heart - [place] Placement ALLERGIES Artificial Plasticizer; Food Supplemt, Lactose-Reduced; Iodine [Contrast Dye]; Lactose; Lipitor [Atorvastatin Calcium]; Lisinopril; Soy; Valium [Diazepam]; and Z Pack [Other] MEDICATIONS cyanocobalamin (VITAMIN B-12) 1,000 mcg tab Take 1,000 mcg by mouth. pantoprazole DR (PROTONIX) 40 mg tablet Take 1 tablet by mouth once daily. escitalopram oxalate (LEXAPRO) 10 mg tablet Take 1 tablet by mouth once daily. nortriptyline (PAMELOR) 25 mg capsule Takes 25 mg twice a day to three times daily as needed for flare up of depression symptoms. Stops when not needing melatonin 10 mg tab Take 1 tablet by mouth daily at bedtime. atorvastatin (LIPITOR) 20 mg tablet Take 4 tablets by mouth daily at bedtime. For cholesterol. metoprolol succinate ER (TOPROL XL) 50 mg 24 hr tablet Take 25 mg by mouth once daily. levothyroxine (SYNTHROID) 25 mcg tablet Take 1 tablet by mouth once daily. Take on empty stomach. For thyroid. nitroglycerin sublingual (NITROQUICK) 0.4 mg SL tablet Dissolve 1 tablet under the tongue every 5 minutes as needed. furosemide (LASIX) 40 mg tablet Take 1 tablet by mouth twice daily. (per cardiology) cholecalciferol (VITAMIN D3) 5,000 unit tab Take 5,000 Units by mouth once daily. aspirin, enteric coated (ASPIRIN, ENTERIC COATED) 81 mg EC tablet Take 1 tablet by mouth once daily. triamcinolone acetonide (NASACORT) 55 mcg nasal inhaler Use 2 Sprays in the nose once daily. trimethoprim-polymyxin (POLYTRIM) 10,000 unit- 1 mg/mL ophthalmic solution Use 1 Drop in both eyes four times daily for 7 days. benzonatate (TESSALON PERLE) 100 mg capsule Take 2 capsules by mouth three times daily as needed for up to 10 days. clopidogrel (PLAVIX) 75 mg tablet Take 1 tablet by mouth once daily. FAMILY HISTORY Problem Relation Age of Onset Heart Mother [place], Arthritis Father Rheumatoid Heart Maternal Grandfather Heart Paternal Grandfather Heart Maternal Uncle [place], Bi Pass Surgery Lipids Brother High Cholesterol Arthritis Other Maternal side of family Colon Cancer Paternal Uncle Social History Tobacco Use Smoking status: Never Smokeless tobacco: Never Substance Use Topics Alcohol use: Yes Comment: Rarely Drug use: No Objective Physical Exam Vitals and nursing note reviewed. Constitutional: General: She is not in acute distress. Appearance: Normal appearance. She is not toxic-appearing. HENT: Right Ear: Tympanic membrane, ear canal and external ear normal. Left Ear: Tympanic membrane, ear canal and external ear normal. Nose: Nose normal. Mouth/Throat: Mouth: Mucous membranes are moist. Pharynx: Oropharynx is clear. Uvula midline. No oropharyngeal exudate or posterior oropharyngeal erythema. Eyes: General: Right eye: Discharge present. Left eye: Discharge present. Extraocular Movements: Extraocular movements intact. Conjunctiva/sclera: Right eye: Right conjunctiva is injected. No chemosis, exudate or hemorrhage. Left eye: Left conjunctiva is injected. No chemosis, exudate or hemorrhage. Pupils: Pupils are equal, round, and reactive to light. Cardiovascular: Rate and Rhythm: Normal rate and regular rhythm. Heart sounds: Normal heart sounds. Pulmonary: Effort: Pulmonary effort is normal. No respiratory distress. Breath sounds: Normal breath sounds. No wheezing or rales. Musculoskeletal: Cervical back: Neck supple. Lymphadenopathy: Cervical: No cervical adenopathy. Skin: General: Skin is warm and dry. Findings: No erythema or rash. Neurological: Mental Status: She is alert. ASSESSMENT/PLAN: 1. Viral URI with cough - ICD9: 465.9, ICD10: J06.9 (primary diagnosis) - Discussed viral etiology and rationale for treatment. - Symptomatic treatment with prn analgesia - Supportive care with fluids and rest - COVID WITH FLUA+B, ROUTINE - BENZONATATE 100 MG CAPSULE 2. Acute conjunctivitis of both eyes, unspecified acute conjunctivitis type - ICD9: 372.00, ICD10: H10.33 - see medication orders - course and contagiousness issues discussed, including hand washing. - call if high fever, eye pain, visual changes, concerns or if symptoms persist. - POLYMYXIN B SULFATE 10,000 UNIT-TRIMETHOPRIM 1 MG/ML EYE DROPS - Follow-up with your PCP in 3-5 days if symptoms have not improved or sooner if symptoms worsen - Discussed red flags and need for immediate medical evaluation if any occur. - Discussed supportive care treatment with fluids, rest and analgesia. - Discussed expected course of illness Shelbie Murphy APRN.CNP documented in this encounterUniversity [facility]12-10-[facility]22 Instructions* Patient Instructions* Shelbie Murphy APRN.CNP - 05/02/2022 3:05 PM EST ASSESSMENT/PLAN: 1. Viral URI with cough - ICD9: 465.9, ICD10: J06.9 (primary diagnosis) - Discussed viral etiology and rationale for treatment. - Symptomatic treatment with prn analgesia - Supportive care with fluids and rest - COVID WITH FLUA+B, ROUTINE - BENZONATATE 100 MG CAPSULE 2. Acute conjunctivitis of both eyes, unspecified acute conjunctivitis type - ICD9: 372.00, ICD10: H10.33 - see medication orders - course and contagiousness issues discussed, including hand washing. - call if high fever, eye pain, visual changes, concerns or if symptoms persist. - POLYMYXIN B SULFATE 10,000 UNIT-TRIMETHOPRIM 1 MG/ML EYE DROPS - Follow-up with your PCP in 3-5 days if symptoms have not improved or sooner if symptoms worsen - Discussed red flags and need for immediate medical evaluation if any occur. - Discussed supportive care treatment with fluids, rest and analgesia. - Discussed expected course of illness Shelbie Murphy APRN.CNP CONJUNCTIVITIS GENERAL INFORMATION: Conjunctivitis is also known as pink eye. It is an irritation of the underside of the eyelid and the white part of the eye. Conjunctivitis can be caused by infection, chemical irritation, or allergy.If infectious, it is very contagious. INSTRUCTIONS: The doctor has prescribed antibiotic drops or ointment. Use them as prescribed. Do not touch the dropper to the eye. Throw out the medication after completing treatment. If the doctor only prescribedthe medication to be placed in one eye, and the other eye starts to bother you with the same symptoms, you may treat it in the same fashion. To ease discomfort, apply a warm or cool clean washcloth to your eye several times a day for 10 to 20 minutes. Gently wipe away discharge from the eyes with tissues. Wash your hands often with soap and use paper towels to dry them. Do not share towels, washcloths, or pillows. This could spread infection. Do not use eye make-up until the infection has resolved. Keep contact lenses out of eyes until the irritation is gone. Discard any eye make-up which you may have contaminated before the infection wasdiagnosed, and any eye make-up older than one year. Children should not return to school or daycare until the eye is no longer pink. Do not drive or operate machinery if your vision is blurred. Wear sunglasses if your eyes are sensitive to the light. CONTACT YOUR DOCTOR IF YOU OR YOUR CHILD NOTICE: *The eye is still pink 3 days after starting treatment with medicine. *Pain in the eye increases. *The redness is spreading. *Vision becomes blurred. *You have a temperature over 100.5 F (38 C). documented in this encounterUniversity [facility]als [facility]11-28-2022 Miscellaneous Notes* Telephone Encounter - Madie Leal LPN - 04/20/2022 2:32 PM EST Patients notified of providers message and verbalized understanding. * Telephone Encounter - Margo Marinelli APRN.CNS - 04/20/2022 2:20 PM EST Alkaline phosphatase remains elevated on recheck. Recommend recheck 1 mo fasting. Avoid acetaminophen use for now. Complete RUQ US and BMD- scheduled documented in this encounterUniversity Hospitals [facility]11-07-2022 Instructions* Patient Instructions* Margo Marinelli APRN.CNS - 03/30/2022 3:25 PM EST BONE MINERAL DENSITY PATIENT INSTRUCTIONS Bone mineral density testing measures the amount of calcium in certain parts of your bones. This information determines how strong your bones are. The test is used to detect osteoporosis, a disease in which the bone's mineral content and density are low, increasing a person's risk of fractures. Thelumbar spine (lower back) and the hip are the skeletal sites usually examined. For the test, remember that: 1. You cannot take this test if you are . 2. Eat a normal diet on the day of the test. 3. Take your medications as you normally would. 4. DO NOT take calcium supplements (such as Tums) for 24 hours before the test. 5. On the day of the test, leave valuables (jewelry or credit cards) at home. 6. The test should be performed prior to oral, rectal or IV contrast studies, or at least 7 days after any of these studies. For the test, you may be asked to wear a hospital gown. You will lie on your back, on a padded table, in a comfortable position. Generally, you can resume your usual activities immediately. documented in this encounterUniversity Hospitals [facility]11-07-2022 History of Present illness Narrative* Margo Marinelli APRN.CNS - 03/30/2022 3:17 PM EST SUBJECTIVE: COVID-19 VACCINE(5 - Booster for Moderna series) due on 02/10/2022 Edema Presents today with 2 SO that help with HPI. Lavelle Rueda is a 75 year old female. . Her past medical history significant for hypertension hyperlipidemia CAD status post PCI and JESUS 2005. She was admitted to [facility] withchest pain and found to have NSTEMI, underwent diagnostic left heart catheterization on November 01, 2020. Subsequently underwent CABG on November 04, 2020 (PERRY to mid LA abdomen well talk about D, Ao to Ramus w rsvg; Ao to OM1 to RCA PDA sequential w rsvg; left leg evH) at [facility]. HPI excerpted from previous visits: Her postoperative course was complicated by confusion, attributed to her baseline dementia. Due to mental status changes CT of head was completed and noted subacute right temporoparietal infarction. She developed bradycardia and atrial fibrillation in the postop period. Electrophysiology was consulted due to her rhythm disturbance recommended amiodarone and discontinuation of. Beta- twyla. She converted to normal sinus rhythm with dose changes. She was discharged to [facility] on 11/19. She was discharged home from [facility] on 12/13, with home health care RN PT and OT. Brother and uiubic-ih-wgo are helping her manage appointments medication. Remote visit 12/24/2020 with cardiothoracic provider Ama Whipple without noted complaints at that time. Seen at [facility] ER for chest pain March 04 and March 07. No changes to her treatment recommended. At her last visit here she noted bilateral lower extremity edema present for about 1 month. Noted 10 pound weight gain during this period as well. Today notes lower extremity edema is about the same. Weight is stable. She is currently sleeping inbed and elevating her feet when seated. She is also wearing compression socks during the day. Without report of chest pain or shortness of breath currently. Notes some weakness in both legs, has been using a Rollator in her home which has been helpful. No report of falls. She did have home care for a period of time with physical therapy but this has now been completed. Since last here she was seen by Dr. Chavez on April 25, 2021. Notes indicate family thought strokewas thought to be cardioembolic. Notes no MRI vessel imaging or lead atg developer performed determineother possible etiologies. There was concern that stroke may involve greater than the right occipital lobe given memory complaints. On exam noted to have left homonymous hemianopsia that correlates with location reports stroke, patient and family were not aware of this deficit until seen in the office. He recommended MRI of brain to evaluate for extent of stroke and to determine if more than occipital lobe is involved. And MRA of brain and neck to evaluate large vessel disease as cause of stroke. He was she was continued on aspirin and statin. She was advised to follow-up with ophthalmologistfor visual field testing. She was advised to complete ZIO 14-day monitor to further evaluate for atrial fibrillation. ZIO showed a run of SVT during monitor otherwise no arrhythmias noted. Advised tofollow-up with cardiology regarding this. She underwent visual field testing at [facility] and advised to follow- up in 1 year. Copingstrategies for reading eating and socializing discussed. She again notes not really having any problems regarding this. She was seen by [facility] May 09, 2021. Her dose of losartan was increased from 50 to 100 mg. Her dose of Lasix was increased to 40 mg twice daily. Noted that if still coughing despitethese changes would recommend CAT scan to check for hemidiaphragm postoperative or any infiltrates.She reports planning on completing lab work for [facility] tomorrow at [facility]. Presents today for follow up abnormal hepatic panel results per her geiratrician at [facility],Dr Johnson. See care everywhere notes and labs. She reports not completing labs fasting. She reports not taking Tylenol, no supplements or alcohol. She is without nausea vomiting or abdominal pain. Last MD 2015. Review of Systems Constitutional: Negative. Objective BP 126/88 Pulse 84 Resp 16 Wt 73.9 kg (163 lb) BMI 26.31 kg/m Physical Exam Vitals and nursing note reviewed. Constitutional: Appearance: Normal appearance. HENT: Head: Normocephalic and atraumatic. Eyes: Conjunctiva/sclera: Conjunctivae normal. Cardiovascular: Rate and Rhythm: Normal rate and regular rhythm. Pulses: Carotid pulses are 2+ on the right side and 2+ on the left side. Radial pulses are 2+ on the right side and 2+ on the left side. Heart sounds: Normal heart sounds. Pulmonary: Effort: Pulmonary effort is normal. Breath sounds: Normal breath sounds. Abdominal: General: Bowel sounds are normal. Palpations: Abdomen is soft. Musculoskeletal: Right lower leg: No edema. Left lower leg: No edema. Skin: General: Skin is warm and dry. Neurological: Mental Status: She is alert. Mental status is at baseline. ALLERGIES Allergen Reactions Artificial Plastici* GI Upset additives, fillers, thickeners, colors etc Food Supplemt, Lact* GI Upset Ingredients in additives Iodine [Contrast Dy* Lactose Diarrhea, GI Upset Lipitor [Atorvastat* GI Upset bowel problems Lisinopril gi upset Soy GI Upset Valium [Diazepam] Mental Status Change Nightmares. Would not want to take this again. Noted years ago, never charted, never mentioned Z Pack [Other] severe stomach discomfort. MEDICATIONS: cyanocobalamin (VITAMIN B-12) 1,000 mcg tab Take 1,000 mcg by mouth. pantoprazole [address] (PROTONIX) 40 mg tablet Take 1 tablet by mouth once daily. escitalopram oxalate (LEXAPRO) 10 mg tablet Take 1 tablet by mouth once daily. benzonatate (TESSALON PERLES) 100 mg capsule Take 1 capsule by mouth three times daily as needed. nortriptyline (PAMELOR) 25 mg capsule Takes 25 mg twice a day to three times daily as needed for flare up of depression symptoms. Stops when not needing melatonin 10 mg tab Take 1 tablet by mouth daily at bedtime. atorvastatin (LIPITOR) 20 mg tablet Take 4 tablets by mouth daily at bedtime. For cholesterol. metoprolol succinate ER (TOPROL XL) 50 mg 24 hr tablet Take 25 mg by mouth once daily. levothyroxine (SYNTHROID) 25 mcg tablet Take 1 tablet by mouth once daily. Take on empty stomach. For thyroid. nitroglycerin sublingual (NITROQUICK) 0.4 mg SL tablet Dissolve 1 tablet under the tongue every 5 minutes as needed. furosemide (LASIX) 40 mg tablet Take 1 tablet by mouth twice daily. (per cardiology) cholecalciferol (VITAMIN D3) 5,000 unit tab Take 5,000 Units by mouth once daily. aspirin, enteric coated (ASPIRIN, ENTERIC COATED) 81 mg EC tablet Take 1 tablet by mouth once daily. triamcinolone acetonide (NASACORT) 55 mcg nasal inhaler Use 2 Sprays in the nose once daily. clopidogrel (PLAVIX) 75 mg tablet Take 1 tablet by mouth once daily. PAST MEDICAL HISTORY Diagnosis Date Anxiety state, unspecified Coronary artery disease ASHD, sees Dr. Sanabria Depressive disorder, not elsewhere classified Disorder of bone and cartilage, unspecified Diverticulosis of colon (without mention of hemorrhage) Generalized osteoarthrosis, unspecified site Hyperlipidemia Internal hemorrhoids without mention of complication Peripheral neuropathy Feet constant with pain and numbness; sometimes hands affected Retinal defect tear in left retine, repaired with laser surgery Snoring Unspecified essential hypertension Social History Tobacco Use Smoking status: Never Smokeless tobacco: Never Substance Use Topics Alcohol use: Yes Comment: Rarely Drug use: No Component Latest Ref Rng & Units 03/27/2021 Protein, Total 6.3 - 8.0 g/dL 6.9 Albumin 3.9 - 4.9 g/dL 3.9 Calcium 8.5 - 10.2 mg/dL 9.3 Bilirubin, Total 0.2 - 1.3 mg/dL 0.3 Alkaline Phosphatase 34 - 123 U/L 107 AST 13 - 35 U/L 18 Glucose 74 - 99 mg/dL 92 BUN 7 - 21 mg/dL 10 Creatinine 0.58 - 0.96 mg/dL 0.69 Sodium 136 - 144 mmol/L 144 Potassium 3.7 - 5.1 mmol/L 3.2 (L) Chloride 97 - 105 mmol/L 103 CO2 22 - 30 mmol/L 29 Anion Gap 9 - 18 mmol/L 12 ALT 7 - 38 U/L 10 eGFR- >60 eGFR-All Other Races . >60 TSH 0.270 - 4.200 uU/mL 2.720 Free T4 0.9 - 1.7 ng/dL 1.2 ASSESSMENT/PLAN: 1. Elevated liver enzymes - ICD9: 790.5, ICD10: R74.8 (primary diagnosis) - COMP METABOLIC PANEL - complete fasting - DXA-AXIAL SKELETON - US ABD RT UPPER QUADRANT 2. Need for COVID-19 vaccine - ICD9: V04.89, ICD10: Z23 deferred - [employer] COVID-19 BIVALENT BOOSTER VACCINE, AGE 12+ YR 3. Osteoporosis, unspecified osteoporosis type, unspecified pathological fracture presence - ICD9: 733.00, ICD10: M81.0 - Endorse Calcium and Vitamin D supplements and weight bearing exercise as tolerated Margo Marinelli APRN.CNS Medical Decision Making: Problems: Low: Acute, uncomplicated illness or injury Data: Unique test(s) ordered: 3+ Independent interpretation of test from other physician/QHCP Medical Decision Making Level: 3 - Low documented in this encounterUniversity Hospitals Conneaut Medical Center10-27-2022 Miscellaneous Notes* Telephone Encounter - Juliana Giordano APRN.AGENT CONTRACT CLERK - 03/19/2022 4:33 PM EDT Noted. Agree with recommendations for evaluation. Juliana Giordano APRN.CNP * Telephone Encounter - Alice Hinds RN - 03/19/2022 3:00 PM EDT Stefanie with [facility] calling to update PCP with patient update. Stefanie states patient states she fell at home on 03/16/22. She did hit her head but no bumps or bruising to head. No open areas. Stefanie reports patient is complaining of left leg pain above her knee radiating into her groin when she bears weight. Some swelling noted above right knee area. Uses walker to walk. Able to walk but pain noted when walking. Stefanie will advise patient to go to [facility] as soon as possible. Stefanie reports she has family that should be able to take her. Alice Hinds RN documented in this encounterUniversity Hospitals Conneaut Medical Center09-29-2022 Miscellaneous Notes* Telephone Encounter - Madie Leal LPN - 02/19/2022 4:07 PM EDT Last appointment 12/16/21 Next appointment 06/23/22 * Telephone Encounter - Mikki Aleman - 02/18/2022 2:41 PM EDT Patient has been identified by name and date of : Yes Requested Prescriptions Pending Prescriptions Disp Refills escitalopram oxalate (LEXAPRO) 10 mg tablet 90 tablet 3 Sig: Take 1 tablet by mouth once daily. RX INSTRUCTIONS: Patient aware RX will be sent to pharmacy. No need to notify patient. Mikki Quintanilla [facility] [place] documented in this encounterUniversity Hospitals Conneaut Medical Center07-26-2022 History of Present illness Narrative* Jd Barger MD - 12/16/2021 5:16 PM EDT This note was created using ?riter. Subjective Lavelle Rueda is a 76 year old female. Patient presents with: F/U 6 months SUBJECTIVE: Lavelle Rueda is a 76 year old year old lady here today for 6 month follow up appointment for review of medical conditions. Noted labs from May [address] [facility] . K+ 3.3--no symptoms Eating banana daily now. Cough resolved. Neurologist had said to take ASA for 90 days and still on med list with refills. Discussed check with janitorial manager. Has been taking Pamelor at 10AM and 4 PM. Depression fine. Written so can stop when able. PAST MEDICAL HISTORY Diagnosis Date Anxiety state, unspecified Coronary artery disease ASHD, sees Dr. Sanabria Depressive disorder, not elsewhere classified Disorder of bone and cartilage, unspecified Diverticulosis of colon (without mention of hemorrhage) Generalized osteoarthrosis, unspecified site Hyperlipidemia Internal hemorrhoids without mention of complication Peripheral neuropathy Feet constant with pain and numbness; sometimes hands affected Retinal defect tear in left retine, repaired with laser surgery Snoring Unspecified essential hypertension Current Outpatient Medications Medication Sig benzonatate (TESSALON PERLES) 100 mg capsule Take 1 capsule by mouth three times daily as needed. nortriptyline (PAMELOR) 25 mg capsule Takes 25 mg twice a day to three times daily as needed for flare up of depression symptoms. Stops when not needing pantoprazole DR (PROTONIX) 40 mg tablet Take 1 tablet by mouth once daily. melatonin 10 mg tab Take 1 tablet by mouth daily at bedtime. atorvastatin (LIPITOR) 20 mg tablet Take 4 tablets by mouth daily at bedtime. For cholesterol. metoprolol succinate ER (TOPROL XL) 50 mg 24 hr tablet Take 25 mg by mouth once daily. levothyroxine (SYNTHROID) 25 mcg tablet Take 1 tablet by mouth once daily. Take on empty stomach. For thyroid. clopidogrel (PLAVIX) 75 mg tablet Take 1 tablet by mouth once daily. nitroglycerin sublingual (NITROQUICK) 0.4 mg SL tablet Dissolve 1 tablet under the tongue every 5 minutes as needed. escitalopram oxalate (LEXAPRO) 10 mg tablet Take 1 tablet by mouth once daily. furosemide (LASIX) 40 mg tablet Take 1 tablet by mouth twice daily. (per cardiology) cholecalciferol (VITAMIN D-3) 5,000 unit tab Take 5,000 Units by mouth once daily. aspirin, enteric coated (ASPIRIN, ENTERIC COATED) 81 mg EC tablet Take 1 tablet by mouth once daily. triamcinolone acetonide (NASACORT) 55 mcg nasal inhaler Use 2 Sprays in the nose once daily. No current facility-administered medications for this visit. Review of Systems Objective BP 132/86 Pulse 78 Wt 74.4 kg (164 lb) SpO2 98% BMI 26.47 kg/m Physical Exam Constitutional: Appearance: Normal appearance. HENT: Head: Normocephalic. Eyes: Conjunctiva/sclera: Conjunctivae normal. Cardiovascular: Rate and Rhythm: Normal rate and regular rhythm. Heart sounds: Normal heart sounds. Pulmonary: Effort: Pulmonary effort is normal. Breath sounds: Normal breath sounds. Musculoskeletal: Right lower le+ Pitting Edema present. Left lower le+ Pitting Edema present. Skin: General: Skin is warm and dry. Neurological: General: No focal deficit present. Mental Status: She is alert and oriented to person, place, and time. Psychiatric: Mood and Affect: Mood normal. Behavior: Behavior normal. Thought Content: Thought content normal. Judgment: Judgment normal. Component Latest Ref Rng & Units 03/27/2021 08/28/2021 Protein, Total 6.3 - 8.0 g/dL 6.9 Albumin 3.9 - 4.9 g/dL 3.9 Calcium 8.5 - 10.2 mg/dL 9.3 Bilirubin, Total 0.2 - 1.3 mg/dL 0.3 Alkaline Phosphatase 34 - 123 U/L 107 AST 13 - 35 U/L 18 Glucose 74 - 99 mg/dL 92 BUN 7 - 21 mg/dL 10 Creatinine 0.58 - 0.96 mg/dL 0.69 Sodium 136 - 144 mmol/L 144 Potassium 3.7 - 5.1 mmol/L 3.2 (L) Chloride 97 - 105 mmol/L 103 CO2 22 - 30 mmol/L 29 Anion Gap 9 - 18 mmol/L 12 ALT 7 - 38 U/L 10 eGFR- >60 eGFR-All Other Races . >60 Total Cholesterol, Nonfasting <200 mg/dL 181 Triglycerides, Nonfasting <150 mg/dL 173 (H) HDL Cholesterol, Nonfasting >39 mg/dL 55 LDL Cholesterol, Nonfasting <100 mg/dL 91 Non HDL Cholesterol, Nonfasting <130 mg/dL 126 VLDL Cholesterol, Nonfasting <30 mg/dL 35 (H) Total Chol/HDL Ratio, Nonfasting <5.10 mg/dL 3.29 LDL/HDL Ratio, Nonfasting <2.54 mg/dL 1.65 TSH 0.270 - 4.200 uU/mL 2.720 Free T4 0.9 - 1.7 ng/dL 1.2 CMP and BNP done May [address] [facility] for JUDY Frank. Assessment and Plan Encounter Diagnosis ICD-10-CM 1. Acquired hypothyroidism E03.9 TSH BLD T4 FREE/FREE THYROX T3 FREE BLD 2. Essential hypertension I10 3. History of CVA (cerebrovascular accident) Z86.73 4. Anxiety and depression F41.9 F32.A 5. Gastroesophageal reflux disease without esophagitis K21.9 6. Encounter for long-term current use of medication Z79.899 MAGNESIUM BLD Above issues addressed with patient. Patient involved in shared decision making for management of medical issues. History and medications reviewed. Epic updated as needed Refills and/or prescriptions taken care of and meds adjusted as indicated after reviewed history, exam and labs. Health Maintenance reviewed. Updated record and/or ordered tests as recorded. Encouraged on efforts at healthy diet and regular exercise and adequate sleep. Continue present meds.Further evaluation and treatment as indicated. Jd Barger MD documented in this encounterUniversity Hospitals Conneaut Medical Center07-11-2022 Miscellaneous Notes* Telephone Encounter - Jd Barger MD - 12/01/2021 3:42 PM EDT Noted * Telephone Encounter - Marycruz Skaggs LPN - 12/01/2021 3:01 PM EDT Stefanie with [facility] called in for results of UA. Results below given. They saw pt today and she is doing well with no problems. Marycruz Skaggs LPN * Telephone Encounter - Jd Barger MD - 12/01/2021 2:58 PM EDT No significant growth Could be contaminant. Can get a repeat urine sample if needed. Can treat empirically if needed. See how patient is doing. * Telephone Encounter - Christi Melendez LPN - 12/01/2021 1:47 PM EDT urine completed. * Telephone Encounter - Christi Melendez LPN - 11/28/2021 11:31 AM EDT they can bring her to the lab they said. * Telephone Encounter - Jd Barger MD - 11/28/2021 11:27 AM EDT Wasn't sure if patient coming into lab or need outside order for home health to bring elsewhere so filed for both. The following approved medication requests have been transmitted electronically. Signed Prescriptions Disp Refills cephALEXin (KEFLEX) 500 mg capsule 14 capsule 0 Sig: Take 1 capsule by mouth twice daily for 7 days. JAK: No Authorizing Provider: JD BARGER MD * Telephone Encounter - Christi Melendez LPN - 11/28/2021 9:55 AM EDT Pt community action nurse calling to report pt has been to urgent care multiple times. They are unable/willing to check urine.they say pt to ER for evaluation. Pt had only one episode of hallucination. Pt has a history of UTI and nurse is requesting treatment. Nurse is asking for antibiotic to pharmacy for symptoms. previous in Jan took cephalexin. Can you order urine first then antibiotic? documented in this encounterUniversity Hospitals Conneaut Medical Center07-07-2022 Miscellaneous Notes* Telephone Encounter - Margo Marinelli APRN.CNS - 11/27/2021 5:08 PM EDT ER as previously noted/advised. * Telephone Encounter - Alice Hinds RN - 11/27/2021 4:47 PM EDT Patient's [id number] Jinny returned call and given provider's message below. Jinny declines recommendation for ER visit for patient at this time and is strongly requesting and to have urine testorders be placed for patient so patient can get tests completed tomorrow at the lab. Could this be done? Please call Jinny back with update. Thank you. * Telephone Encounter - Madie Leal LPN - 11/27/2021 4:35 PM EDT No answer. Left message for patient/Jinny to call office and ask to speak to a nurse regarding urine test. * Telephone Encounter - Margo Marinelli APRN.CNS - 11/27/2021 4:11 PM EDT She was referred to ER x3 per UC provider. I do not see that she has gone yet. Would recommend ER visit if she has not done so yet. * Telephone Encounter - Juanita Amezquita RN - 11/27/2021 12:21 PM EDT Sister In Law (Jinny) calls to let provider know that patient has been to UC twice and ER once andneither place is willing to check patient for a UTI. See previous UC notes from yesterday. Jinny is frustrated and asking if provider would please place order for urinalysis and culture. Jinny reports that patient will be able to give a urine specimen and doesn't need catheterization. Pended for review. Diagnosis needs added if provider agreeable. Juanita Amezquita RN documented in this encounterUniversity Hospitals Conneaut Medical Center07-06-2022 History of Present illness Narrative* Stephen Reno MD - 11/26/2021 12:39 PM EDT Patient presents because she has had hallucination the last couple days. The police came to the house yesterday because she reported someone in her house. Her aid says she has reported someone standing next to her today when there is no one there. She has had urinary frequency. Patient was referredto the ER for further evaluation. documented in this encounterUniversity Hospitals Conneaut Medical Center07-06-2022 Miscellaneous Notes* Telephone Encounter - Christi Melendez LPN - 11/26/2021 11:22 AM EDT Called [facility] Stefanie and pts [facility] teresitae is bringing pt to express care for evaluation. * Telephone Encounter - Juliana Giordano APRN.CNP - 11/26/2021 11:02 AM EDT Patient needs urgently evaluated for hallucinations and possible causes. Thank you Juliana Giordano APRN.CNP * Telephone Encounter - Loreto Nayak RN - 11/26/2021 10:14 AM EDT Stefanie with [facility] called in and reports that they check in weekly on Pt. States she has been doing pretty good lately. Yesterday she was out side in a blanket yelling that someone was in her house. No one was in her house, she was finally calmed down. Stefanie states that sometimes when she gets like this it's because she has a UTI. Stefanie was asking if provider would want to put in an order for a UA or have them go to EC. She states Pt has an Aide that should be getting there at 1045am this morning that would be able to take her to get either of those things done. Please call Stefanie and advise. documented in this encounterUniversity Hospitals Conneaut Medical Center06-14-2022 History of Present illness Narrative* Cayla Jhaveri APRN.AGENT CONTRACT CLERK - 11/04/2021 4:37 PM EDT Images from the original note were not included. Subjective Patient came in noticed that she had some redness and swelling of the left ankle and foot. judy it started today. Does not have any pain with it. Has never had this before. Denies any other symptoms At this time including fever, nausea. The history is provided by the patient. No world language teacher was used. Review of Systems Constitutional: Negative. Skin: Negative. Objective Physical Exam Constitutional: Appearance: Normal appearance. Pulmonary: Effort: Pulmonary effort is normal. Musculoskeletal: Legs: Comments: erythema and edema noted at area marked above. Blanchable. Warmth noted. Neurological: Mental Status: She is alert. PAST MEDICAL HISTORY Diagnosis Date Anxiety state, unspecified Coronary artery disease ASHD, sees Dr. Sanabria Depressive disorder, not elsewhere classified Disorder of bone and cartilage, unspecified Diverticulosis of colon (without mention of hemorrhage) Generalized osteoarthrosis, unspecified site Hyperlipidemia Internal hemorrhoids without mention of complication Peripheral neuropathy Feet constant with pain and numbness; sometimes hands affected Retinal defect tear in left retine, repaired with laser surgery Snoring Unspecified essential hypertension PAST SURGICAL HISTORY Procedure Laterality Date APPENDECTOMY COLONOSCOPY FLX DX W/COLLJ SPEC WHEN PFRMD 09/01/07 COLONOSCOPY FLX DX W/COLLJ SPEC WHEN PFRMD 07/11/2018 Colonoscopy ESOPHAGOGASTRODUODENOSCOPY TRANSORAL DIAGNOSTIC 06/05/2019 EGD LAPS ABD PRTM&OMENTUM DX W/WO SPEC BR/WA SPX Laparoscopy LEFT HEART CATH,PERCUTANEOUS 02/2006 Cardiac cath, L heart - [place] Placement ALLERGIES Artificial Plasticizer; Food Supplemt, Lactose-Reduced; Iodine [Contrast Dye]; Lactose; Lipitor [Atorvastatin Calcium]; Lisinopril; Soy; Valium [Diazepam]; and Z Pack [Other] MEDICATIONS atorvastatin (LIPITOR) 20 mg tablet Take 4 tablets by mouth daily at bedtime. For cholesterol. metoprolol succinate ER (TOPROL XL) 50 mg 24 hr tablet Take 25 mg by mouth once daily. nortriptyline (PAMELOR) 25 mg capsule Takes 25 mg twice a day to three times daily as needed for flare up of depression symptoms. Stops when not needing levothyroxine (SYNTHROID) 25 mcg tablet Take 1 tablet by mouth once daily. Take on empty stomach. For thyroid. celecoxib (CELEBREX) 200 mg capsule Take 1 capsule by mouth once daily. take with food. for back pain potassium chloride 20 mEq TbER Take 1 tablet by mouth twice daily. nitroglycerin sublingual (NITROQUICK) 0.4 mg SL tablet Dissolve 1 tablet under the tongue every 5 minutes as needed. pantoprazole DR (PROTONIX) 40 mg tablet Take 1 tablet by mouth once daily. escitalopram oxalate (LEXAPRO) 10 mg tablet Take 1 tablet by mouth once daily. furosemide (LASIX) 40 mg tablet Take 1 tablet by mouth twice daily. (per cardiology) cholecalciferol (VITAMIN D-3) 5,000 unit tab Take 5,000 Units by mouth once daily. melatonin 3 mg capsules Take by mouth. aspirin, enteric coated (ASPIRIN, ENTERIC COATED) 81 mg EC tablet Take 1 tablet by mouth once daily. triamcinolone acetonide (NASACORT) 55 mcg nasal inhaler Use 2 Sprays in the nose once daily. benzonatate (TESSALON PERLES) 100 mg capsule Take 1 capsule by mouth three times daily as needed. clopidogrel (PLAVIX) 75 mg tablet Take 1 tablet by mouth once daily. losartan (COZAAR) 100 mg tablet Take 100 mg by mouth once daily. FAMILY HISTORY Problem Relation Age of Onset Heart Mother [place], Arthritis Father Rheumatoid Heart Maternal Grandfather Heart Paternal Grandfather Heart Maternal Uncle [place], Bi Pass Surgery Lipids Brother High Cholesterol Arthritis Other Maternal side of family Colon Cancer Paternal Uncle Social History Tobacco Use Smoking status: Never Smoker Smokeless tobacco: Never Used Substance Use Topics Alcohol use: Yes Comment: Rarely Drug use: No ASSESSMENT/PLAN: 1. Left ankle swelling - ICD9: 719.07, ICD10: M25.472 (primary diagnosis) - XR ANKLE GENERAL 3V AP/LAT/OBL LEFT 2. Foot swelling - ICD9: 729.81, ICD10: M79.89 - XR FOOT GENERAL 3V AP/LAT/OBL LEFT RESULT: Standing frontal radiographs of the bilateral feet and ankles with oblique and lateral weightbearing views of the left foot and ankle demonstrate bimalleolar soft tissue swelling bilaterally, left more prominent than right. There is left mid and forefoot soft tissue swelling. No gas within the soft tissues There is underlying osteopenia and scattered degenerative change of the IP joints bilaterally. Joint spaces are preserved and there are no erosive or bony destructive changes. IMPRESSION IMPRESSION: Bimalleolar soft tissue swelling bilaterally, left greater than right. Additionally there is left midfoot and forefoot soft tissue swelling. Osteopenia and degenerative change. No acute bony process. Manager Star: CAYETANO Transcribe Date/Time: Nov 04 2021 5:31P Dictated by : MARILUZ FALL MD At this time being treated for cellulitis. Patient caregiver with her was educated about proper useof doxycycline bid for 7 days and prednisone 9 day taper. They understand and will go to the ER if symptoms worsen or do not seem to be getting better. Cayla Jhaveri APRN.KATHERYN documented in this encounterUniversity Hospitals Conneaut Medical Center05-26-2022 History of Present illness Narrative* Paty Salazar, PT - 10/16/2021 2:18 PM EDT Episode Visit Count: 18 Therapist That Will Oversee The Plan Of Care: Paty Salazar Start of Care Date: 06/04/21 Onset Date: 05/21/21 Plan of Care Certification Date: 09/11/21 Next Certification Due Date: 10/23/21 Patient Identified by Name and Date of : Yes REHABILITATION AND SPORTS THERAPY PHYSICAL THERAPY DISCONTINUANCE OF CARE PLAN OF CARE UPDATE: Assessment: Lavelle Rueda is discontinued from Physical Therapy services due to goal achievement and maximal benefit.. Patient was seen for 18 visits from Start of Care Date: 06/04/21 to 10/16/2021 and treatment included: Therapeutic exercise, Neuromuscular re-education, Self-correction management and Patient/Family/Caregiver Education. Goals for Episode of Care: created on 06/04/21 through 07/17/21 updated 07/24/21 updated 09/11/21 updated 10/15/21 Patient will report no falls./ achieved Improve score on Timed Up and Go Test to 15 seconds to reflect decreased fall risk./ achieved Improve score on 30 Second Chair Stand to 10 repetitions to reflect decreased fall risk/ not achieved Improve performance on 4 Stage Balance Test to10 seconds tandem to reflect decreased fall risk./ achieved [place] in home exercise program including cardiovascular exercise./ partially achieved Increase strength of LE in order to increase safety of gait ./ achieved Patient Goals: be more independent/ achieved SUBJECTIVE: Patient Reason for Visit: Pt reports that she is doing ok. Notes that she did does not have community based ex class picked out. Confient with mobility at home currently. Pain: Pain Pain Level: 0 Post Treatment Pain Post Treatment Pain Level: No Change PROMIS Scales Higher is Better 05/28/2021 06/02/2021 Phys Func - Score - 23 (severe dysfunction) Phys Func - Percentile - 0 % Social Roles - Score - 25 (severe dysfunction) Social Role - Percentile - 1 % GH Physical - Score Incomplete - GH Mental - Score Incomplete - Self-Eff Symptom - Score - 27 (Very Low) Self-Eff Symptom - Percentile - 1 % T-scores: mean of general population = 50. 5 points is clinically meaningfully difference Percentiles provide an indication of how the patient's score ranks in relation to the general population. Higher percentile rankings indicate better function/quality of life. 50th percentile is the average of the general population and indicates half of respondents had a worse score. Lower is Better 06/02/2021 Fatigue - Score 74 (severe) Fatigue - Percentile 1 % T-scores: mean of general population = 50. 5 points is clinically meaningfully difference Percentiles provide an indication of how the patient's score ranks in relation to the general population. Higher percentile rankings indicate better function/quality of life. 50th percentile is the average of the general population and indicates half of respondents had a worse score. OBJECTIVE MEASURES WITH LEVEL OF FUNCTION: Functional Strength Functional Strength: decreased endurance for sit to stand legs only Mobility Sit To Stand: Independent Gait Gait: Independent Gait Device: Rollator Functional Performance Test Results 30 Second Chair Stand Test: 6 reps Timed Up and Go (sec): 15 sec 4 Stage Balance Test Narrow base of support (sec): 30 sec Semi-tandem base of support (sec): 30 sec Tandem base of support (sec): 30 sec Functional Reach - Stand Functional Reach Stand - Right (inches): 10 in Tinetti Assessment Tool Sitting balance: 1- Steady, safe Rises from chair: 2- Able without use of arms Attempts to rise: 2- Able to rise, 1 attempt Immediate standin- Steady without walker or other support Standing balance: 1- Steady but wide stance and uses support Nudged: 1- Staggers, grabs, catches self Eyes closed: 1- Steady Turning 360 Continuous: 1- Continuous Turning 360 Steady: 1- Steady Sitting down: 2- Safe, smooth motion Balance Score (calculated): 14 Indication of gait: 1- No hesitancy R Step length and height: 1- Step through R L Step length and height: 1- Step through L R Foot clearance: 1- R foot clears L Foot clearance: 1- L foot clears Step symmetry: 1- R and L step length appear equal Step continuity: 1- Steps appear continuous Path: 1- Mild/moderate deviation or uses aid Trunk: 0- Marked sway or uses aid Walk Time: 1- Heels amost touching while walking Gait Score (calculated): 9 Tinetti Assessment Tool Total Score (calculated): 23 Fall Risk:: 19-23: Moderate Fall Risk TREATMENT: Therapeutic Exercise: 1: blue hamstring curls 2x15 2: seated LAQ 2 # 2x12 B 3: seated hip flexions /2# 2x10 4: sit to stand from table [id number] guarding 6: standing hip abduction 2x10 Skilled Intervention: Patient was educated in proper exercise technique and purpose for exercises. Reviewed and educated patient on additions/changes for home exercise program . Skilled judgment was provided in selection of appropriate interventions. Provided written instruction for home exercise program to facilitate proper performance and compliance. Correct performance of therapeutic exercises was facilitated with verbal and visual cuing. Neuromuscular Re-Education: 2: tandem stance with hands on guarding 3: step taps to doam of BOSU 2x10 no hands 4: step ups to air ex 1x10 5: balance board anterior / posterior no hands and mild assist 8: tandem walking with occassional hand assist on parallel bars 9: air x NBOS with paloff and stir the pot arm movements 2x10 10: air x NBOS head turns with some assist for LOB Skilled Intervention: Skilled judgment used to assess appropriate program for balance and coordination activity. Education in proprioceptive/kinesthetic awareness during dynamic activities. Insured patient safety with use of parallel bars and gait belt Home Exercise Program Assigned: Billing Therapeutic Exercise Treatment Minutes: 20 Neuromuscular Re-Education Treatment Minutes: 25 Total Treatment Time Minutes (timed/untimed): 45 Paty Salazar PT documented in this encounterUniversity Hospitals [facility]05-18-2022 History of Present illness Narrative* Paty Salazar PT - 10/08/2021 3:21 PM EDT Episode Visit Count: 17 Therapist That Will Oversee The Plan Of Care: Paty Salazar Start of Care Date: 06/04/21 Onset Date: 05/21/21 Plan of Care Certification Date: 09/11/21 Next Certification Due Date: 10/23/21 Patient Identified by Name and Date of : Yes REHABILITATION AND SPORTS THERAPY PHYSICAL THERAPY TREATMENT NOTE ASSESSMENT: Lavelle Rueda tolerated the session with no issues. She demonstrated improvements in balance and tandem stance today . The patient will continue to benefit from ongoing skilled physical therapy to progress toward set goals. PLAN FOR NEXT VISIT: POC with discharge SUBJECTIVE: Patient Reason for Visit: Pt reports no issues. States that she has not yet found a community based ex class Pain: Pain Pain Level: 0 OBJECTIVE MEASURES WITH LEVEL OF FUNCTION: tandem stance B x30 sec. TREATMENT: Therapeutic Exercise: 1: blue hamstring curls 2x15 2: seated LAQ 2 # 2x12 B 3: seated hip flexions /2# 2x10 4: sit to stand from table [id number] guarding 6: standing hip abduction 2x10 Skilled Intervention: Skilled judgment was provided in selection of appropriate interventions. Correct performance of therapeutic exercises was facilitated with verbal and visual cuing. Neuromuscular Re-Education: 2: tandem stance with hands on guarding 3: step taps to doam of BOSU 2x10 no hands 4: step ups to air ex 1x10 5: balance board anterior / posterior no hands and mild assist 6: stepping over hurdles reciprocal and B 2x6 each with hands on guarding 7: sidestepping over hurdles 10'x2 B 8: tandem walking with occassional hand assist on parallel bars 9: air x NBOS with paloff and stir the pot arm movements 2x10 10: air x NBOS head turns with some assist for LOB Skilled Intervention: Skilled judgment used to assess appropriate program for balance and coordination activity. Education in proprioceptive/kinesthetic awareness during dynamic activities. Insured patient safety with use of gait belt Billing Therapeutic Exercise Treatment Minutes: 20 Neuromuscular Re-Education Treatment Minutes: 25 Total Treatment Time Minutes (timed/untimed): 45 Paty Salazar PT documented in this encounterUniversity Hospitals [facility]05-11-2022 Miscellaneous Notes* Telephone Encounter - Phuong Quezada LPN - 10/01/2021 12:31 PM EDT Patient has been identified by name and date of : Yes Patient phones for refill(s): Pending Prescriptions Disp Refills BENZONATATE 100 MG CAPSULE 90 capsule 1 Sig: Take 1 capsule by mouth three times daily as needed. JAK: No Date of last office visit in primary care: 08/28/2021 6 month follow-up: 12/16/2021 Last 2 Encounter Wt Readings: Date: Wt: 08/28/2021 71.2 kg (157 lb) 07/07/2021 69.2 kg (152 lb 9.6 oz) Previous labs/tests for medication: Not applicable Please advise. Thank you. Phuong Quezada LPN * Telephone Encounter - Chanda Skaggs Pss - 10/01/2021 11:02 AM EDT Patient has been identified by name and date of : Yes Pending Prescriptions Disp Refills BENZONATATE 100 MG CAPSULE 90 capsule 1 Sig: Take 1 capsule by mouth three times daily as needed. JAK: No RX INSTRUCTIONS: Patient aware RX will be sent to pharmacy. No need to notify patient. Chanda Skaggs Pss documented in this encounterUniversity Hospitals [facility]05-05-2022 History of Present illness Narrative* Paty Salazar, PT - 09/25/2021 5:11 PM EDT Episode Visit Count: 15 Therapist That Will Oversee The Plan Of Care: Paty Salazar Start of Care Date: 06/04/21 Onset Date: 05/21/21 Plan of Care Certification Date: 09/11/21 Next Certification Due Date: 10/23/21 Patient Identified by Name and Date of : Yes REHABILITATION AND SPORTS THERAPY PHYSICAL THERAPY TREATMENT NOTE ASSESSMENT: Lavelle Rueda tolerated the session with no issues. She demonstrated difficulty with some loss of balance with certain balance challenged activities which at times required mild assist LOB to left as well as backwards during challenged balance . The patient will continue to benefit from ongoing skilled physical therapy to progress toward set goals. PLAN FOR NEXT VISIT: continue with balance and strengthening SUBJECTIVE: Patient Reason for Visit: Pt notes that she is feeling well. Reports that she has not looked into community based exs yet. Was waiting until after PT . Encouraged her to check them out and participate even before PT is done so if she has questions can discuss Pain: Pain Pain Level: 0 Post Treatment Pain Post Treatment Pain Level: No Change OBJECTIVE MEASURES WITH LEVEL OF FUNCTION: tandem stance 20 seconds right foot in front TREATMENT: Therapeutic Exercise: 1: blue hamstring curls 2x15 2: seated LAQ 1 1/2 # 2x12 B 3: seated hip flexions 1 1/2# 2x10 4: sit to stand from table [id number] guarding 6: standing hip abduction 2x10 Skilled Intervention: Patient was educated in proper exercise technique and purpose for exercises. Skilled judgment was provided in selection of appropriate interventions. Correct performance of therapeutic exercises was facilitated with verbal and visual cuing. Neuromuscular Re-Education: 2: tandem stance with hands on guarding 3: step taps to doam of BOSU 2x10 no hands 4: step ups to air ex 1x10 5: balance board anterior / posterior no hands and mild assist 6: stepping over hurdles reciprocal and B 2x6 each with hands on guarding 7: sidestepping over hurdles 10'x2 B 8: tandem walking with occassional hand assist on parallel bars 9: air x NBOS with paloff and stir the pot arm movements 2x10 Skilled Intervention: Skilled judgment used to assess appropriate program for balance and coordination activity. Education in proprioceptive/kinesthetic awareness during dynamic activities. Insured patient safety with use of gait belt Billing Therapeutic Exercise Treatment Minutes: 20 Neuromuscular Re-Education Treatment Minutes: 25 Total Treatment Time Minutes (timed/untimed): 45 Paty Salazar PT documented in this encounterUniversity Hospitals [facility]04-29-2022 Miscellaneous Notes* Telephone Encounter - Jd Barger MD - 09/19/2021 3:44 PM EDT If insurance will not cover four of the 20 mg pills, clarify why patient will not take the 80 and 40 mg pills. If size of pill the issue? Could also switch back to Crestor that had tolerated in the past. The following approved medication requests have been transmitted electronically. Signed Prescriptions Disp Refills atorvastatin (LIPITOR) 20 mg tablet 360 tablet 3 Sig: Take 4 tablets by mouth daily at bedtime. For cholesterol. Authorizing Provider: JD BARGER MD * Telephone Encounter - Loreto Nayak RN - 09/19/2021 8:46 AM EDT Stefanie from [facility] reports that Pt will not take her 80 mg Lipitor, they tried splitting it in half and putting it in applesauce and she still won't take it. They tried giving her half of 40 mg tablets and she will not take those and they tried splitting them in half in applesauce and she wouldn't take them. She reports the family found some of her 20 mg Lipitor and she would take 4 of those. She is asking if we could order her to take 4 of the 20 mg tablets. I told her that her insurance may not allow it, but pended the order. Please call Stefanie back with an update. Patient has been identified by name and date of : Yes Stefanie from [facility] phones for refill(s): Pending Prescriptions Disp Refills ATORVASTATIN 20 MG TABLET Sig: Take 1 tablet by mouth daily at bedtime. For cholesterol. Date of last office visit in primary care: 08/28/21 Future visit: 12/16/21 Last 2 Encounter Wt Readings: Date: Wt: 08/28/2021 71.2 kg (157 lb) 07/07/2021 69.2 kg (152 lb 9.6 oz) Previous labs/tests for medication: Cholesterol: HDL Cholesterol (mg/dL) Date Value 12/19/2019 35 HDL Cholesterol, Nonfasting (mg/dL) Date Value 08/28/2021 55 05/03/2020 40 LDL Cholesterol (mg/dL) Date Value 12/19/2019 Unable to calculate due to increased Triglycerides. See LDL-Chol, Direct. LDL Cholesterol, Nonfasting (mg/dL) Date Value 08/28/2021 91 05/03/2020 140 ALT (U/L) Date Value 03/27/2021 10 Non HDL Cholesterol, Nonfasting (mg/dL) Date Value 08/28/2021 126 05/03/2020 178 Please advise. Thank you. Loreto Nayak RN documented in this encounterUniversity Hospitals [facility]04-22-2022 Miscellaneous Notes* Telephone Encounter - Martha Briones - 09/12/2021 11:21 AM EDT Patient has been identified by name and date of : Yes Pending Prescriptions Disp Refills BENZONATATE 100 MG CAPSULE 30 capsule 0 Sig: Take 1 capsule by mouth three times daily as needed. JAK: No RX INSTRUCTIONS: Patient aware RX will be sent to pharmacy. No need to notify patient. Martha Briones documented in this encounterUniversity Hospitals [facility]04-21-2022 History of Present illness Narrative* Paty Salazar, PT - 09/11/2021 4:44 PM EDT Episode Visit Count: 14 Therapist That Will Oversee The Plan Of Care: Paty Salazar Start of Care Date: 06/04/21 Onset Date: 05/21/21 Plan of Care Certification Date: 09/11/21 Next Certification Due Date: 10/23/21 Patient Identified by Name and Date of : Yes REHABILITATION AND SPORTS THERAPY PHYSICAL THERAPY PROGRESS REPORT PLAN OF CARE UPDATE: Assessment: Lavelle Rueda demonstrates improvements in functional scores and physical activities. She hasprogressed toward goals. Patient continues to present with impairments in balance that interfere with safety. Pt had several instances of slight LOB with activities today and not as confident overall with balance . Functional core of Tinetti still with fall risk . Current prognosis is fair. She will benefit from continued skilled therapy services to meet the updated goals for this plan of care as noted below. Goals for Episode of Care: created on 06/04/21 through 07/17/21 updated 07/24/21 updated 09/11/21 Patient will report no falls./ achieved Improve score on Timed Up and Go Test to 15 seconds to reflect decreased fall risk./ partially achieved Improve score on 30 Second Chair Stand to 10 repetitions to reflect decreased fall risk/ progressing Improve performance on 4 Stage Balance Test to10 seconds tandem to reflect decreased fall risk./ achieved [place] in home exercise program including cardiovascular exercise./ partially achieved Increase strength of LE in order to increase safety of gait ./ partially achieved Patient Goals: be more independent/ partially achieved Planned Interventions, Frequency, and Duration: 1x/week, 4 weeks Total Number of Visits Planned: 4 Patient to be seen for Therapeutic exercise (07981);Neuromuscular re-education (98155);Self-correction management (85305);Patient/Family/Caregiver Education;Gait Training ([id number]) PLAN FOR NEXT VISIT: Continue to work on balance activities. LE strengthening SUBJECTIVE: Patient Reason for Visit: Pt notes that she is feeling ok. Has continued to perform exsat home about 4 days per week and has been doing some walking. Pain: Pain Pain Level: 0 Post Treatment Pain Post Treatment Pain Level: No Change PROMIS Scales Higher is Better 05/28/2021 06/02/2021 Phys Func - Score - 23 (severe dysfunction) Phys Func - Percentile - 0 % Social Roles - Score - 25 (severe dysfunction) Social Role - Percentile - 1 % GH Physical - Score Incomplete - GH Mental - Score Incomplete - Self-Eff Symptom - Score - 27 (Very Low) Self-Eff Symptom - Percentile - 1 % T-scores: mean of general population = 50. 5 points is clinically meaningfully difference Percentiles provide an indication of how the patient's score ranks in relation to the general population. Higher percentile rankings indicate better function/quality of life. 50th percentile is the average of the general population and indicates half of respondents had a worse score. Lower is Better 06/02/2021 Fatigue - Score 74 (severe) Fatigue - Percentile 1 % T-scores: mean of general population = 50. 5 points is clinically meaningfully difference Percentiles provide an indication of how the patient's score ranks in relation to the general population. Higher percentile rankings indicate better function/quality of life. 50th percentile is the average of the general population and indicates half of respondents had a worse score. OBJECTIVE MEASURES WITH LEVEL OF FUNCTION: LE Strength R Hip Flexion (L2): 5/5 R Knee Extension (L3): 5/5 R Knee Flexion: 5/5 L Hip Flexion (L2): 5/5 L Knee Extension (L3): 5/5 L Knee Flexion: 5/5 Mobility Sit To Stand: Independent (did have one loss of balance getting up required 2nd attempt for standing) Gait Gait: Independent Gait Device: Rollator (and also without rollator) Gait Deviations: General Deviations General Deviations/Observations: Stephanie decreased;Step length decreased Functional Performance Test Results 30 Second Chair Stand Test: 7 reps Timed Up and Go (sec): 18 sec (18 with rollator and 15 sec without rollator) 4 Stage Balance Test Narrow base of support (sec): 30 sec Semi-tandem base of support (sec): 30 sec Tandem base of support (sec): 30 sec Functional Reach - Stand Functional Reach Stand - Right (inches): 12 in Tinetti Assessment Tool Sitting balance: 1- Steady, safe Rises from chair: 1- Able, uses arms to help Attempts to rise: 1- Able, requires >1 attempt Immediate standin- Steady without walker or other support Standing balance: 1- Steady but wide stance and uses support Nudged: 2- Stead Eyes closed: 1- Steady Turning 360 Continuous: 1- Continuous Turning 360 Steady: 1- Steady Sitting down: 2- Safe, smooth motion Balance Score (calculated): 13 Indication of gait: 0- Any hesitancy or multiple attempts R Step length and height: 1- Step through R L Step length and height: 1- Step through L R Foot clearance: 1- R foot clears L Foot clearance: 1- L foot clears Step symmetry: 1- R and L step length appear equal Step continuity: 1- Steps appear continuous Path: 1- Mild/moderate deviation or uses aid Trunk: 2- No sway, flex or use of arms or aid Walk Time: 1- Heels amost touching while walking Gait Score (calculated): 10 Tinetti Assessment Tool Total Score (calculated): 23 Fall Risk:: 19-23: Moderate Fall Risk TREATMENT: Therapeutic Exercise: 1: blue hamstring curls 2x15 2: seated LAQ 1 /2 # 2x12 B 4: sit to stand from table [id number] guarding 5: green rep band hip abduction 2x10 6: standing hip abduction 2x10 Skilled Intervention: Skilled judgment was provided in selection of appropriate interventions. Correct performance of therapeutic exercises was facilitated with verbal and visual cuing. Neuromuscular Re-Education: 2: tandem stance with hands on guarding 3: step taps to doam of BOSU 2x10 no hands 4: step ups to air ex 1x10 5: balance board anterior / posterior no hands and mild assist 6: stepping over hurdles reciprocal and B 2x6 each with hands on guarding 7: sidestepping over hurdles 10'x2 B 8: tandem walking with occassional hand assist on parallel bars Skilled Intervention: Skilled judgment used to assess appropriate program for balance and coordination activity. Education in proprioceptive/kinesthetic awareness during dynamic activities. Insured patient safety with use of gait belt Billing Therapeutic Exercise Treatment Minutes: 20 Neuromuscular Re-Education Treatment Minutes: 25 Total Treatment Time Minutes (timed/untimed): 45 Paty Salazar PT documented in this encounterUniversity Hospitals [facility] Center04-12-2022 Miscellaneous Notes* Telephone Encounter - KATRIN Dobbins - 09/02/2021 3:01 PM EDT TC to Jinny, sister in law listed to receive results. Jinny verbalizes understanding of results and providers instructions. KATRIN Dobbins * Telephone Encounter - Madie Leal LPN - 09/01/2021 5:12 PM EDT No answer. Left message for patient to call office and ask to speak to a nurse regarding lab results. * Telephone Encounter - Margo Marinelli APRN.CNS - 09/01/2021 3:54 PM EDT Please let her know that cholesterol looks significantly improved since last checked. Recommend a plant based diet such as Mediterranean diet with plenty of vegetables, fruits,whole grains, fish, chicken, turkey or plant proteins and routine exercise such as walking to help keep this in check. Continue with statin unchanged for now. Component Latest Ref Rng & Units 08/28/2021 Total Cholesterol, Nonfasting <200 mg/dL 181 Triglycerides, Nonfasting <150 mg/dL 173 (H) HDL Cholesterol, Nonfasting >39 mg/dL 55 LDL Cholesterol, Nonfasting <100 mg/dL 91 Non HDL Cholesterol, Nonfasting <130 mg/dL 126 VLDL Cholesterol, Nonfasting <30 mg/dL 35 (H) Total Chol/HDL Ratio, Nonfasting <5.10 mg/dL 3.29 LDL/HDL Ratio, Nonfasting <2.54 mg/dL 1.65 documented in this encounterUniversity Hospitals Conne[facility] Center04-07-2022 Instructions* Patient Instructions* Margo Marinelli APRN.CNS - 08/28/2021 1:56 PM EDT Check to see if your insurance covers Tdap (tetanus diphtheria pertussis) and shingles vaccine and what location to get the vaccine -usually best covered at your local pharmacy where you get prescriptions filled documented in this encounterUniversity Hospitals [facility] Center04-07-2022 History of Present illness Narrative* Margo Marinelli APRN.CNS - 08/28/2021 1:40 PM EDT SUBJECTIVE: LDL CHOLESTEROL due on 05/03/2021 Edema Associated symptoms include weakness. Pertinent negatives include no chest pain. Presents today with 2 SO / brother Nayeli that help with HPI. Lavelle Rueda is a 75 year old female. . Her past medical history significant for hypertension hyperlipidemia CAD status post PCI and JESUS 2005. She was admitted to [facility] withchest pain and found to have NSTEMI, underwent diagnostic left heart catheterization on November 01, 2020. Subsequently underwent CABG on November 04, 2020 (PERRY to mid LA abdomen well talk about D, Ao to Ramus w rsvg; Ao to OM1 to RCA PDA sequential w rsvg; left leg evH) at [facility]. HPI excerpted from previous visits: Her postoperative course was complicated by confusion, attributed to her baseline dementia. Due to mental status changes CT of head was completed and noted subacute right temporoparietal infarction. She developed bradycardia and atrial fibrillation in the postop period. Electrophysiology was consulted due to her rhythm disturbance recommended amiodarone and discontinuation of. Beta- twyla. She converted to normal sinus rhythm with dose changes. She was discharged to [facility] on 11/19. She was discharged home from SNF on 12/13, with home health care RN PT and OT. Brother and [id number] are helping her manage appointments medication. Remote visit 12/24/2020 with cardiothoracic provider Ama Whipple without noted complaints at that time. Seen at [facility] ER for chest pain March 04 and March 07. No changes to her treatment recommended. At her last visit here she noted bilateral lower extremity edema present for about 1 month. Noted 10 pound weight gain during this period as well. Today notes lower extremity edema is about the same. Weight is stable. She is currently sleeping inbed and elevating her feet when seated. She is also wearing compression socks during the day. Without report of chest pain or shortness of breath currently. Notes some weakness in both legs, has been using a Rollator in her home which has been helpful. No report of falls. She did have home care for a period of time with physical therapy but this has now been completed. Since last here she was seen by Dr. Chavez on April 25, 2021. Notes indicate family thought strokewas thought to be cardioembolic. Notes no MRI vessel imaging or lead atg developer performed determineother possible etiologies. There was concern that stroke may involve greater than the right occipital lobe given memory complaints. On exam noted to have left homonymous hemianopsia that correlates with location reports stroke, patient and family were not aware of this deficit until seen in the office. He recommended MRI of brain to evaluate for extent of stroke and to determine if more than occipital lobe is involved. And MRA of brain and neck to evaluate large vessel disease as cause of stroke. He was she was continued on aspirin and statin. She was advised to follow-up with ophthalmologistfor visual field testing. She was advised to complete ZIO 14-day monitor to further evaluate for atrial fibrillation. ZIO showed a run of SVT during monitor otherwise no arrhythmias noted. Advised tofollow-up with cardiology regarding this. She underwent visual field testing at [facility] and advised to follow- up in 1 year. Copingstrategies for reading eating and socializing discussed. She again notes not really having any problems regarding this. She was seen by [facility] May 09, 2021. Her dose of losartan was increased from 50 to 100 mg. Her dose of Lasix was increased to 40 mg twice daily. Noted that if still coughing despitethese changes would recommend CAT scan to check for hemidiaphragm postoperative or any infiltrates.She reports planning on completing lab work for [facility] tomorrow at [facility]. She was seen in [facility] in May. Metabolic panel completed. BNP completed. No lipid panel. Since last here she is also been seen by neurologist recommended aspirin x3 months in addition to Plavix. Today reports she is feeling improved No longer taking losartan. CP: no SOBOE:no PND/orthopnea:no Cough: much improved CT chest completed: yes Taking PPI: yes PT helping mobility: is helping, doing better. She is using a Rollator for longer distances, otherwise walking on her own. Vision: stable; has not improved Continues with lower extremity edema, improved from previous. Has been unable to wear compression socks as they were uncomfortable and she had trouble removing them. HTN: Without report of headache, chest pain, palpitations, dyspnea, dizziness, lightheadedness, presyncope, syncope, orthopnea, fatigue or PND. Last 3 Encounter BP Readings: Date: BP: 08/28/2021 128/82 07/07/2021 128/61 05/29/2021 128/78 Hyperlipidemia. Ms. Rueda doing well on current therapy Her most recent lipid panels are: Cholesterol, Total (mg/dL) Date Value 12/19/2019 229 08/05/2018 219 Total Cholesterol, Nonfasting (mg/dL) Date Value 05/03/2020 218 HDL Cholesterol (mg/dL) Date Value 12/19/2019 35 08/05/2018 50 HDL Cholesterol, Nonfasting (mg/dL) Date Value 05/03/2020 40 LDL Cholesterol (mg/dL) Date Value 12/19/2019 Unable to calculate due to increased Triglycerides. See LDL-Chol, Direct. 08/05/2018 138 LDL Cholesterol, Nonfasting (mg/dL) Date Value 05/03/2020 140 Triglyceride (mg/dL) Date Value 12/19/2019 426 08/05/2018 156 Triglycerides, Nonfasting (mg/dL) Date Value 05/03/2020 188 Review of Systems Constitutional: Negative. Respiratory: Negative. Cardiovascular: Positive for leg swelling. Negative for chest pain. Neurological: Positive for weakness. Objective BP 128/82 Pulse 77 Wt 71.2 kg (157 lb) SpO2 99% BMI 25.34 kg/m Physical Exam Vitals and nursing note reviewed. Constitutional: Appearance: Normal appearance. HENT: Head: Normocephalic and atraumatic. Eyes: Conjunctiva/sclera: Conjunctivae normal. Cardiovascular: Rate and Rhythm: Normal rate and regular rhythm. Pulses: Carotid pulses are 2+ on the right side and 2+ on the left side. Radial pulses are 2+ on the right side and 2+ on the left side. Heart sounds: Normal heart sounds. Pulmonary: Effort: Pulmonary effort is normal. Breath sounds: Normal breath sounds. Abdominal: General: Bowel sounds are normal. Palpations: Abdomen is soft. Musculoskeletal: Right lower le+ Edema present. Left lower le+ Pitting Edema present. Comments: using rollator Skin: General: Skin is warm and dry. Neurological: General: No focal deficit present. Mental Status: She is alert. ALLERGIES Allergen Reactions Artificial Plastici* GI Upset additives, fillers, thickeners, colors etc Food Supplemt, Lact* GI Upset Ingredients in additives Iodine [Contrast Dy* Lactose Diarrhea, GI Upset Lipitor [Atorvastat* GI Upset bowel problems Lisinopril gi upset Soy GI Upset Valium [Diazepam] Mental Status Change Nightmares. Would not want to take this again. Noted years ago, never charted, never mentioned Z Pack [Other] severe stomach discomfort. MEDICATIONS: metoprolol succinate ER (TOPROL XL) 50 mg 24 hr tablet Take 25 mg by mouth once daily. benzonatate (TESSALON PERLES) 100 mg capsule Take 1 capsule by mouth three times daily as needed. nortriptyline (PAMELOR) 25 mg capsule Takes 25 mg twice a day to three times daily as needed for flare up of depression symptoms. Stops when not needing levothyroxine (SYNTHROID) 25 mcg tablet Take 1 tablet by mouth once daily. Take on empty stomach. For thyroid. celecoxib (CELEBREX) 200 mg capsule Take 1 capsule by mouth once daily. take with food. for back pain clopidogrel (PLAVIX) 75 mg tablet Take 1 tablet by mouth once daily. potassium chloride 20 mEq TbER Take 1 tablet by mouth twice daily. nitroglycerin sublingual (NITROQUICK) 0.4 mg SL tablet Dissolve 1 tablet under the tongue every 5 minutes as needed. atorvastatin (LIPITOR) 80 mg tablet Take 1 tablet by mouth once daily. pantoprazole DR (PROTONIX) 40 mg tablet Take 1 tablet by mouth once daily. escitalopram oxalate (LEXAPRO) 10 mg tablet Take 1 tablet by mouth once daily. furosemide (LASIX) 40 mg tablet Take 1 tablet by mouth twice daily. (per cardiology) cholecalciferol (VITAMIN D-3) 5,000 unit tab Take 5,000 Units by mouth once daily. melatonin 3 mg capsules Take by mouth. aspirin, enteric coated (ASPIRIN, ENTERIC COATED) 81 mg EC tablet Take 1 tablet by mouth once daily. triamcinolone acetonide (NASACORT) 55 mcg nasal inhaler Use 2 Sprays in the nose once daily. losartan (COZAAR) 100 mg tablet Take 100 mg by mouth once daily. PAST MEDICAL HISTORY Diagnosis Date Anxiety state, unspecified Coronary artery disease ASHD, sees Dr. Sanabria Depressive disorder, not elsewhere classified Disorder of bone and cartilage, unspecified Diverticulosis of colon (without mention of hemorrhage) Generalized osteoarthrosis, unspecified site Hyperlipidemia Internal hemorrhoids without mention of complication Peripheral neuropathy Feet constant with pain and numbness; sometimes hands affected Retinal defect tear in left retine, repaired with laser surgery Snoring Unspecified essential hypertension Social History Tobacco Use Smoking status: Never Smoker Smokeless tobacco: Never Used Substance Use Topics Alcohol use: Yes Comment: Rarely Drug use: No Component Latest Ref Rng & Units 03/27/2021 Protein, Total 6.3 - 8.0 g/dL 6.9 Albumin 3.9 - 4.9 g/dL 3.9 Calcium 8.5 - 10.2 mg/dL 9.3 Bilirubin, Total 0.2 - 1.3 mg/dL 0.3 Alkaline Phosphatase 34 - 123 U/L 107 AST 13 - 35 U/L 18 Glucose 74 - 99 mg/dL 92 BUN 7 - 21 mg/dL 10 Creatinine 0.58 - 0.96 mg/dL 0.69 Sodium 136 - 144 mmol/L 144 Potassium 3.7 - 5.1 mmol/L 3.2 (L) Chloride 97 - 105 mmol/L 103 CO2 22 - 30 mmol/L 29 Anion Gap 9 - 18 mmol/L 12 ALT 7 - 38 U/L 10 eGFR- >60 eGFR-All Other Races . >60 TSH 0.270 - 4.200 uU/mL 2.720 Free T4 0.9 - 1.7 ng/dL 1.2 Metabolic panel May 2021 at [facility], in acceptable range. ASSESSMENT/PLAN: 1. Pure hypercholesterolemia - ICD9: 272.0, ICD10: E78.00 (primary diagnosis) We will check lipid panel today - LIPID PANEL, NONFASTING 2. Gait difficulty - ICD9: 781.2, ICD10: R26.9 Much improved with physical therapy 3. S/P CABG x 4 - ICD9: V45.81, ICD10: Z95.1 4. NSTEMI (non-ST elevated myocardial infarction) (HCC) - ICD9: 410.70, ICD10: I21.4 5. Coronary artery disease without angina pectoris, unspecified vessel or lesion type, unspecified whether karuk or transplanted heart - ICD9: 414.00, ICD10: I25.10 Much improved with current treatment. No chest pain or shortness of breath noted today. This continues with peripheral edema. Taking Lasix twice daily. Continue with Lasix 40 twice daily per cardiology, compression socks and elevation for now Has been following with [facility]. 7. History of CVA (cerebrovascular accident) - ICD9: V12.54, ICD10: Z86.73 has been seen by neurologist. was taking ASA and plavix ASA x3 mos Continues with plavix Will check lipids today. 9. Left homonymous hemianopsia - ICD9: 368.46, ICD10: H53.462 Stable - has not improved but she is doing well functioning with ADLs 1 year follow-up with [facility] for recheck; sooner if problems or concerns 3 mo follow up MD Margo Muro APRN.SVETLANA Medical Decision Making: Problems: Moderate: 2+ stable chronic illnesses Data: Unique test(s) ordered: 1 Independent interpretation of test from other physician/QHCP Risk: Moderate: Drug management Medical Decision Making Level: 4 - Moderate documented in this encounterUniversity [facility]als [facility]03-31-[facility]22 Miscellaneous Notes* Telephone Encounter - Sharifa Pettit LPN - 08/21/2021 9:15 AM EDT Stefanie from [facility] calling for refill for pt. RORY: 05/29/21 NOV: 08/28/21 Last Refill: 07/21/21 #30 0 refills Sharifa Pettit LPN documented in this encounterUniversity Hospitals [facility]03-28-2022 Miscellaneous Notes* Telephone Encounter - Phuong Rangel Pilar NAVARRO - 08/18/2021 4:14 PM EDT Patient has been identified by name and date of : Yes Patient phones for refill(s): Pending Prescriptions Disp Refills NORTRIPTYLINE 25 MG CAPSULE Sig: Takes 25 mg twice a day to three times daily as needed for flare up of depression symptoms. Stops when not needing JAK: No LEVOTHYROXINE 25 MCG TABLET 90 tablet 3 Sig: Take 1 tablet by mouth once daily. Take on empty stomach. For thyroid. JAK: No Date of last office visit in primary care: 05/29/2021 3 month follow-up: 08/28/2021 Last 2 Encounter Wt Readings: Date: Wt: 07/07/2021 69.2 kg (152 lb 9.6 oz) 05/29/2021 69.4 kg (153 lb) Previous labs/tests for medication: Thyroid: TSH (uU/mL) Date Value 03/27/2021 2.720 Please advise. Thank you. Phuong Quezada LPN * Telephone Encounter - Grazyna Townsend - 08/18/2021 12:31 PM EDT Patient has been identified by name and date of : Yes Pending Prescriptions Disp Refills NORTRIPTYLINE 25 MG CAPSULE Sig: Takes 25 mg twice a day to three times daily as needed for flare up of depression symptoms. Stops when not needing JAK: No LEVOTHYROXINE 25 MCG TABLET 90 tablet 3 Sig: Take 1 tablet by mouth once daily. Take on empty stomach. For thyroid. JAK: No RX INSTRUCTIONS: Patient aware RX will be sent to pharmacy. No need to notify patient. Grazyna Johnston Pss documented in this encounterUniversity Hospitals [facility]01-12-2022 History of Past illness Narrative* Problem Noted Date Resolved Date General weakness 06/04/2021 10/16/2021 Gait difficulty 06/04/2021 10/16/2021 Leg weakness, bilateral 06/04/2021 10/17/19 22 Coronary atherosclerosis of unspecified type of vessel, karuk or graft 10/31/2007 01/20/2012 Disorder of bone and cartilage, unspecified 06/12/2015 documented as of this encounter (statuses as of 10/16/2021) [facility] History of Past illness Narrative* Problem Noted Date Resolved Date General weakness 06/04/2021 10/16/2021 Gait difficulty 06/04/2021 10/16/2021 Leg weakness, bilateral 06/04/2021 10/17/19 22 Coronary atherosclerosis of unspecified type of vessel, karuk or graft 10/31/2007 01/20/2012 Disorder of bone and cartilage, unspecified 06/12/2015 documented as of this encounter (statuses as of 11/04/2021) [facility] History of Past illness Narrative* Problem Noted Date Resolved Date General weakness 06/04/2021 10/16/2021 Gait difficulty 06/04/2021 10/16/2021 Leg weakness, bilateral 06/04/2021 10/17/19 22 Coronary atherosclerosis of unspecified type of vessel, karuk or graft 10/31/2007 01/20/2012 Disorder of bone and cartilage, unspecified 06/12/2015 documented as of this encounter (statuses as of 11/26/2021) [facility] History of Past illness Narrative* Problem Noted Date Resolved Date General weakness 06/04/2021 10/16/2021 Gait difficulty 06/04/2021 10/16/2021 Leg weakness, bilateral 06/04/2021 10/17/19 22 Coronary atherosclerosis of unspecified type of vessel, karuk or graft 10/31/2007 01/20/2012 Disorder of bone and cartilage, unspecified 06/12/2015 documented as of this encounter (statuses as of 11/26/2021) [facility] of Past illness Narrative* Problem Noted Date Resolved Date General weakness 06/04/2021 10/16/2021 Gait difficulty 06/04/2021 10/16/2021 Leg weakness, bilateral 06/04/2021 10/17/19 22 Coronary atherosclerosis of unspecified type of vessel, karuk or graft 10/31/2007 01/20/2012 Disorder of bone and cartilage, unspecified 06/12/2015 documented as of this encounter (statuses as of 11/27/2021) [facility] of Past illness Narrative* Problem Noted Date Resolved Date General weakness 06/04/2021 10/16/2021 Gait difficulty 06/04/2021 10/16/2021 Leg weakness, bilateral 06/04/2021 10/17/19 22 Coronary atherosclerosis of unspecified type of vessel, karuk or graft 10/31/2007 01/20/2012 Disorder of bone and cartilage, unspecified 06/12/2015 documented as of this encounter (statuses as of 12/01/2021) [facility] of Past illness Narrative* Problem Noted Date Resolved Date General weakness 06/04/2021 10/16/2021 Gait difficulty 06/04/2021 10/16/2021 Leg weakness, bilateral 06/04/2021 10/17/19 22 Coronary atherosclerosis of unspecified type of vessel, karuk or graft 10/31/2007 01/20/2012 Disorder of bone and cartilage, unspecified 06/12/2015 documented as of this encounter (statuses as of 02/16/2022) [facility] of Past illness Narrative* Problem Noted Date Resolved Date General weakness 06/04/2021 10/16/2021 Gait difficulty 06/04/2021 10/16/2021 Leg weakness, bilateral 06/04/2021 10/17/19 22 Coronary atherosclerosis of unspecified type of vessel, karuk or graft 10/31/2007 01/20/2012 Disorder of bone and cartilage, unspecified 06/12/2015 documented as of this encounter (statuses as of 02/19/2022) [facility] of Past illness Narrative* Problem Noted Date Resolved Date General weakness 06/04/2021 10/16/2021 Gait difficulty 06/04/2021 10/16/2021 Leg weakness, bilateral 06/04/2021 10/17/19 22 Coronary atherosclerosis of unspecified type of vessel, karuk or graft 10/31/2007 01/20/2012 Disorder of bone and cartilage, unspecified 06/12/2015 documented as of this encounter (statuses as of 03/19/2022) [facility] of [facility] illness Narrative* Problem Noted Date Resolved Date General weakness 06/04/2021 10/16/2021 Gait difficulty 06/04/2021 10/16/2021 Leg weakness, bilateral 06/04/2021 10/17/19 22 Coronary atherosclerosis of unspecified type of vessel, karuk or graft 10/31/2007 01/20/2012 Disorder of bone and cartilage, unspecified 06/12/2015 documented as of this encounter (statuses as of 03/30/2022) [facility] of Past illness Narrative* Problem Noted Date Resolved Date General weakness 06/04/2021 10/16/2021 Gait difficulty 06/04/2021 10/16/2021 Leg weakness, bilateral 06/04/2021 10/17/19 22 Coronary atherosclerosis of unspecified type of vessel, karuk or graft 10/31/2007 01/20/2012 Disorder of bone and cartilage, unspecified 06/12/2015 documented as of this encounter (statuses as of 04/20/2022) [facility] of [facility] illness Narrative* Problem Noted Date Resolved Date General weakness 06/04/2021 10/16/2021 Gait difficulty 06/04/2021 10/16/2021 Leg weakness, bilateral 06/04/2021 10/17/19 22 Coronary atherosclerosis of unspecified type of vessel, karuk or graft 10/31/2007 01/20/2012 Disorder of bone and cartilage, unspecified 06/12/2015 documented as of this encounter (statuses as of 05/02/2022) [facility] illness Narrative* Problem Noted Date Resolved Date General weakness 06/04/2021 10/16/2021 Gait difficulty 06/04/2021 10/16/2021 Leg weakness, bilateral 06/04/2021 10/17/19 22 Coronary atherosclerosis of unspecified type of vessel, karuk or graft 10/31/2007 01/20/2012 Disorder of bone and cartilage, unspecified 06/12/2015 documented as of this encounter (statuses as of 05/05/2022) [facility] Narrative* Problem Noted Date Resolved Date General weakness 06/04/2021 10/16/2021 Gait difficulty 06/04/2021 10/16/2021 Leg weakness, bilateral 06/04/2021 10/17/19 22 Coronary atherosclerosis of unspecified type of vessel, karuk or graft 10/31/2007 01/20/2012 Disorder of bone and cartilage, unspecified 06/12/2015 documented as of this encounter (statuses as of 05/15/2022) [facility] Narrative* Problem Noted Date Resolved Date General weakness 06/04/2021 10/16/2021 Gait difficulty 06/04/2021 10/16/2021 Leg weakness, bilateral 06/04/2021 10/17/19 22 Coronary atherosclerosis of unspecified type of vessel, karuk or graft 10/31/2007 01/20/2012 Disorder of bone and cartilage, unspecified 06/12/2015 documented as of this encounter (statuses as of 05/27/2022) [facility] Narrative* Problem Noted Date Resolved Date General weakness 06/04/2021 10/16/2021 Gait difficulty 06/04/2021 10/16/2021 Leg weakness, bilateral 06/04/2021 10/17/19 22 Coronary atherosclerosis of unspecified type of vessel, karuk or graft 10/31/2007 01/20/2012 Disorder of bone and cartilage, unspecified 06/12/2015 documented as of this encounter (statuses as of 05/30/2022) [facility] Narrative* Problem Noted Date Resolved Date General weakness 06/04/2021 10/16/2021 Gait difficulty 06/04/2021 10/16/2021 Leg weakness, bilateral 06/04/2021 10/17/19 22 Coronary atherosclerosis of unspecified type of vessel, karuk or graft 10/31/2007 01/20/2012 Disorder of bone and cartilage, unspecified 06/12/2015 documented as of this encounter (statuses as of 06/03/2022) [facility] Narrative* Problem Noted Date Resolved Date General weakness 06/04/2021 10/16/2021 Gait difficulty 06/04/2021 10/16/2021 Leg weakness, bilateral 06/04/2021 10/17/19 22 Coronary atherosclerosis of unspecified type of vessel, karuk or graft 10/31/2007 01/20/2012 Disorder of bone and cartilage, unspecified 06/12/2015 documented as of this encounter (statuses as of 06/05/2022) [facility] Narrative* Problem Noted Date Resolved Date General weakness 06/04/2021 10/16/2021 Gait difficulty 06/04/2021 10/16/2021 Leg weakness, bilateral 06/04/2021 10/17/19 22 Coronary atherosclerosis of unspecified type of vessel, karuk or graft 10/31/2007 01/20/2012 Disorder of bone and cartilage, unspecified 06/12/2015 documented as of this encounter (statuses as of 06/11/2022) [facility] Narrative* Problem Noted Date Resolved Date General weakness 06/04/2021 10/16/2021 Gait difficulty 06/04/2021 10/16/2021 Leg weakness, bilateral 06/04/2021 10/17/19 22 Coronary atherosclerosis of unspecified type of vessel, karuk or graft 10/31/2007 01/20/2012 Disorder of bone and cartilage, unspecified 06/12/2015 documented as of this encounter (statuses as of 06/17/2022) [facility] Narrative* Problem Noted Date Resolved Date General weakness 06/04/2021 10/16/2021 Gait difficulty 06/04/2021 10/16/2021 Leg weakness, bilateral 06/04/2021 10/17/19 22 Coronary atherosclerosis of unspecified type of vessel, karuk or graft 10/31/2007 01/20/2012 Disorder of bone and cartilage, unspecified 06/12/2015 documented as of this encounter (statuses as of 07/02/2022) [facility] Narrative* Problem Noted Date Resolved Date General weakness 06/04/2021 10/16/2021 Gait difficulty 06/04/2021 10/16/2021 Leg weakness, bilateral 06/04/2021 10/17/19 22 Coronary atherosclerosis of unspecified type of vessel, karuk or graft 10/31/2007 01/20/2012 Disorder of bone and cartilage, unspecified 06/12/2015 documented as of this encounter (statuses as of 07/14/2022) [facility] Narrative* Problem Noted Date Resolved Date General weakness 06/04/2021 10/16/2021 Gait difficulty 06/04/2021 10/16/2021 Leg weakness, bilateral 06/04/2021 10/17/19 22 Coronary atherosclerosis of unspecified type of vessel, karuk or graft 10/31/2007 01/20/2012 Disorder of bone and cartilage, unspecified 06/12/2015 documented as of this encounter (statuses as of 07/16/2022) [facility] Narrative* Problem Noted Date Resolved Date General weakness 06/04/2021 10/16/2021 Gait difficulty 06/04/2021 10/16/2021 Leg weakness, bilateral 06/04/2021 10/17/19 22 Coronary atherosclerosis of unspecified type of vessel, karuk or graft 10/31/2007 01/20/2012 Disorder of bone and cartilage, unspecified 06/12/2015 documented as of this encounter (statuses as of 07/31/2022) [address]12-2022 History of Past illness Narrative* Problem Noted Date Resolved Date General weakness 06/04/2021 10/16/2021 Gait difficulty 06/04/2021 10/16/2021 Leg weakness, bilateral 06/04/2021 10/17/19 22 Coronary atherosclerosis of unspecified type of vessel, karuk or graft 10/31/2007 01/20/2012 Disorder of bone and cartilage, unspecified 06/12/2015 documented as of this encounter (statuses as of 08/18/2022) [facility] Narrative* Problem Noted Date Resolved Date General weakness 06/04/2021 10/16/2021 Gait difficulty 06/04/2021 10/16/2021 Leg weakness, bilateral 06/04/2021 10/17/19 22 Coronary atherosclerosis of unspecified type of vessel, karuk or graft 10/31/2007 01/20/2012 Disorder of bone and cartilage, unspecified 06/12/2015 documented as of this encounter (statuses as of 09/04/2022) [facility] Narrative* Problem Noted Date Resolved Date General weakness 06/04/2021 10/16/2021 Gait difficulty 06/04/2021 10/16/2021 Leg weakness, bilateral 06/04/2021 10/17/19 22 Coronary atherosclerosis of unspecified type of vessel, karuk or graft 10/31/2007 01/20/2012 Disorder of bone and cartilage, unspecified 06/12/2015 documented as of this encounter (statuses as of 09/16/2022) [facility] Narrative* Problem Noted Date Resolved Date General weakness 06/04/2021 10/16/2021 Gait difficulty 06/04/2021 10/16/2021 Leg weakness, bilateral 06/04/2021 10/17/19 22 Coronary atherosclerosis of unspecified type of vessel, karuk or graft 10/31/2007 01/20/2012 Disorder of bone and cartilage, unspecified 06/12/2015 documented as of this encounter (statuses as of 09/22/2022) [facility] Narrative* Problem Noted Date Resolved Date General weakness 06/04/2021 10/16/2021 Gait difficulty 06/04/2021 10/16/2021 Leg weakness, bilateral 06/04/2021 10/17/19 Coronary atherosclerosis of unspecified type of vessel, karuk or graft 10/31/2007 01/20/2012 Disorder of bone and cartilage, unspecified 06/12/2015 documented as of this encounter (statuses as of 09/24/2022) [facility] Narrative* Problem Noted Date Diagnosed Date Resolved Date General weakness 06/04/2021 10/16/2021 Gait difficulty 06/04/2021 10/16/2021 Leg weakness, bilateral 06/04/202109/22 Coronary atherosclerosis of unspecified type of vessel, karuk or graft 10/31/2007 01/20/2012 Disorder of bone and cartilage, unspecified 06/12/2015 documented as of this encounter (statuses as of 12/10/2022) [facility] Narrative* Problem Noted Date Diagnosed Date Resolved Date General weakness 06/04/2021 10/16/2021 Gait difficulty 06/04/2021 10/16/2021 Leg weakness, bilateral 06/04/202109/22 Coronary atherosclerosis of unspecified type of vessel, karuk or graft 10/31/2007 01/20/2012 Disorder of bone and cartilage, unspecified 06/12/2015 documented as of this encounter (statuses as of 12/25/2022) [facility] of Past illness Narrative* Problem Noted Date Diagnosed Date Resolved Date General weakness 06/04/2021 10/16/2021 Gait difficulty 06/04/2021 10/16/2021 Leg weakness, bilateral 06/04/202109/22 Coronary atherosclerosis of unspecified type of vessel, karuk or graft 10/31/2007 01/20/2012 Disorder of bone and cartilage, unspecified 06/12/2015 documented as of this encounter (statuses as of 03/16/2023) [facility] Narrative* Problem Noted Date Diagnosed Date Resolved Date General weakness 06/04/2021 10/16/2021 Gait difficulty 06/04/2021 10/16/2021 Leg weakness, bilateral 06/04/202109/22 Coronary atherosclerosis of unspecified type of vessel, karuk or graft 10/31/2007 01/20/2012 Disorder of bone and cartilage, unspecified 06/12/2015 documented as of this encounter (statuses as of 03/28/2023) [facility] Narrative* Problem Noted Date Diagnosed Date Resolved Date General weakness 06/04/2021 10/16/2021 Gait difficulty 06/04/2021 10/16/2021 Leg weakness, bilateral 06/04/202109/22 Coronary atherosclerosis of unspecified type of vessel, karuk or graft 10/31/2007 01/20/2012 Disorder of bone and cartilage, unspecified 06/12/2015 documented as of this encounter (statuses as of 03/28/2023) [facility] of Past illness Narrative* Problem Noted Date Diagnosed Date Resolved Date General weakness 06/04/2021 10/16/2021 Gait difficulty 06/04/2021 10/16/2021 Leg weakness, bilateral 06/04/202109/22 Coronary atherosclerosis of unspecified type of vessel, karuk or graft 10/31/2007 01/20/2012 Disorder of bone and cartilage, unspecified 06/12/2015 documented as of this encounter (statuses as of 08/02/2023) [facility] NoteHNO ID: [id number] Author: RT Avila(R) Service: Radiology Author Type: Technologist Type: Progress Notes Filed: 05/30/2021 1:33 PM Note Text: Radiology Service Progress Note PATIENT NAME: Lavelle Rueda DATE OF SERVICE: May 30, 2021 TIME: 1:33 PM PATIENT IDENTITY VERIFICATION COMPLETED USING TWO (2) IDENTIFIERS: Name and Date of confirmed by patient verbally and Name and Date of confirmed by identification band. FALL SCREENING: Has the patient had 2 falls in the last year or 1 fall with injury or currently using an Ambulatory Assistive Device (Walker, Cane, Wheelchair, Crutches, etc.)? No PATIENT GENDER DATA: Female. status: : No status: NO. PATIENT RELEVANT IMPLANT DATA REVIEWED: Yes RADIOLOGY DEPARTMENT: MR; Exam(s) Completed: Head: [place] [facility] [place] [facility] PERIPHERAL IV DATA: Not applicable SIGNED BY: RT Avila(R) May 30, 2021 1:33 PM[facility] [id number] Hospital course Narrative* Sally Fajardo, ADJUNCT INSTRUCTOR IN ECONOMICS - AGENT CONTRACT CLERK - 11/19/2020 1:03 PM EDT Images from the original note were not included. Discharge Summary: Cardiothoracic Surgery Lavelle Rueda :1945 AGE: 75 y.o. ADMIT DATE: 10/31/2020 DISCHARGE DATE: 11/19/2020 DISCHARGING SURGEON: Stephen oPole MD, Office Number: [phone] PRIMARY CARE PHYSICIAN: No primary care provider on file., None VISIT STATUS: Admission CODE STATUS: Full Code SURGERY: Surgery/Procedure: 11/04: CABGx4: PERRY to mid LAD, Ao to Ramus w rsvg; Ao to OM1 to RCA PDA sequential w rsvg; left legevH 11/17: Stroke team called- imaging negative for acute process per Neuro HOSPITAL COURSE: Lavelle Rueda is a 75 y.o. female with PMH HTN, HLD, CAD s/p PCI and JESUS in 2005 who was admitted to [facility] with chest pain and found to have NSTEMI and underwent diagnostic LHC on 11/01/20 and CABG on 11/04/20 (PERRY to mid LAD, Ao to Ramus w rsvg; Ao to OM1 to RCA PDA sequential w rsvg; left leg evH). She had confusion post operatively, likely related to her baseline dementia. She did not tolerate narcotics due to MS changes, she did tolerate ativan in order to avoid benzodiazepine withdrawal. Also in the post-op phase, she had bradycardia, and atrial fibrillation with >5 second pause during conversions to NSR. EP was consulted and rec Amiodarone and DC the BB. She converted and has remained in NSR since that time. She is being discharged to SNF in stable condition on POD#19. CONSULTS/TREATMENT TEAM: Critical Care Medicine/Pulm Endocrinology DISCHARGE DIAGNOSES: Patient Active Problem List Diagnosis Code NSTEMI (non-ST elevated myocardial infarction) ([facility]) I21.4 S/P CABG (coronary artery bypass graft) Z95.1 SVT (supraventricular tachycardia) ([facility]) I47.1 ASSESSMENT/PLAN FROM INPATIENT NOTE: S/P CABGx4 Continue ASA, lipitor, lovenox No BB per EP pAF- amiodarone 6 weeks, EP following Post-op delirium-resolved, A&Ox4 Anxiety/ Depressive disorder-psych following, nortriptyline discontinued, dc on home clorazepate per psych Dispo: [facility] [place] EF 65% DISCHARGE MEDICATIONS: Lavelle Rueda Home Medication Instructions JANEL:[id number] Printed on:11/19/20 0945 Medication Information amiodarone (PACERONE) 400 MG tablet Take 1 tablet by mouth daily aspirin 325 MG tablet Take 1 tablet by mouth daily atorvastatin (LIPITOR) 80 MG tablet Take 1 tablet by mouth nightly calcium carbonate (TUMS) 500 MG chewable tablet Take 1 tablet by mouth 3 times daily as needed for Heartburn clorazepate (TRANXENE) 3.75 MG tablet Take 3.75 mg by mouth 4 times daily as needed. ferrous sulfate (IRON 325) 325 (65 Fe) MG tablet Take 325 mg by mouth daily ibuprofen (ADVIL;MOTRIN) 800 MG tablet Take 1 tablet by mouth every 8 hours as needed for Pain melatonin 3 MG TABS tablet Take 1 tablet by mouth nightly miconazole (MICOTIN) 2 % powder Apply topically 2 times daily. pantoprazole (PROTONIX) 40 MG tablet Take 1 tablet by mouth every morning (before breakfast) polyethylene glycol (GLYCOLAX) 17 g packet Take 17 g by mouth daily as needed for Constipation vitamin D (CHOLECALCIFEROL) 63067 UNIT CAPS Take 50,000 Units by mouth once a week *The patient's OARRS report was obtained and reviewed.* CORE CARDIAC MEDICATIONS: Beta-twyla prescribed at discharge: [] Yes [x] No - reason why: Per EP ACEi or ARB prescribed at discharge: [] Yes [x] No - reason why: EF >40% Statin prescribed at discharge: [x] Yes [] No - reason why: Anti-platelet agent prescribed at discharge: [] Yes [x] No - reason why: If yes, type: On asa no rec for plavix due to need for OAC in the future Cardiac Core Medications: ASA, Statin and hold BB for pauses Post operative pulm management: Normal Post-Operative Course EF: 65%-11/01/20 Blood Conservation: 11/04: plt + 2 units PRBC. DVT prophylaxis: TEDs, SCDs and Lovenox Post-operative Atrial Fibrillation: [x]Yes [] No OAC: [] Yes [x] No Initial Post-op RBC transfusion date/reason: yes Chronic Lung Disease: CLD present (severity not documented) BMI CLASSIFICATION:Normal Weight (BMI 18.5-24.9) ACTIVITY: activity as tolerated, strict post-sternotomy/post-thoracotomy sternal precautions as outlined in the home going instructions and no driving or operating heavy machinery until released by provider DISPOSITION: [facility] LUCIANO Parsons CNP Go on 11/28/2020 post op follow up, ([facility]IL[facility] w/Dr. Poole), Time:1:30pm [address] [place] [address] [address] [phone] Andrew Goldman MD Schedule an appointment as soon as possible for a visit in 6 weeks Slot Editor [address] [place] [address] [address] [phone] A copy of the discharge instructions which included the medications at the time of discharge, follow-up appointments, phone numbers to call with questions, activity, restrictions, and limitations wasprovided to the patient or their family. We greatly appreciate the opportunity to participate in the care of your patient. If you have any additional questions or concerns regarding any aspects of their care or management please do not hesitate to contact us. SIGNED: LUCIANO Parsons CNP 11/19/2020, 1:03 PM documented in this [facility] Work Phone: [phone] 489-461906-29-2021 History of Present illness Narrative* Ryan Goodwin MD - 11/19/2020 11:32 AM EDT Lavelle Rueda is a 75 y.o. female S/P CABG (coronary artery bypass graft) I saw patient while wearing an N-95 surgical mask for the entire interview. I did not touch the patient, maintained 2 meters distance, and utilized hand cup setter lockstitch on entry and upon exiting the room Alert, cooperative, has had steady improvements in physical and mental status since initial encounter about 2 weeks ago. She spoke of emotional stress prior to admission related to finances. Support and reassurance offered to patient during our interview today. .mdcm Allergies Allergen Reactions Aspartame Beef-Derived Products Contrast [Iodides] Diazepam Other (See Comments) Nightmares. Would not want to take this again. Noted years ago, never charted, never mentioned Food severe stomach discomfort. Iodine Lactose Diarrhea Other Diarrhea additives, fillers, thickeners, colors etc Pork Allergy Saccharin Sucralose Tomato Soy Allergy Nausea And Vomiting Vitals: 11/19/20 0000 11/19/20 0400 11/19/20 0800 11/19/20 1025 BP: 139/83 (!) 128/54 Pulse: 72 73 76 Resp: 14 13 Temp: TempSrc: SpO2: 97% 96% 96% Weight: Height: Social History Tobacco Use Smoking status: Never Smoker Smokeless tobacco: Never Used Vaping Use Vaping Use: Never used Substance Use Topics Alcohol use: Not Currently Drug use: Never MSE as above, some memory problems noted, she is still confused about day-to-day events, does clearly voice preferences for her care and identifies her brother and her boyfriend as trusted supports for her following hospital stay. Recent Results (from the past 48 hour(s)) POCT Glucose Collection Time: 11/17/20 11:54 AM Result Value Ref Range POC Glucose 104 (H) 70 - 100 mg/dL CBC Collection Time: 11/18/20 1:00 AM Result Value Ref Range WBC 9.9 3.6 - 10.7 10*3/uL RBC 5.03 3.80 - 5.20 10*6/uL Hemoglobin 14.5 11.7 - 16.0 g/dL Hematocrit 44.3 35.0 - 47.0 % MCV 88.1 79.0 - 98.0 fL MCH 28.8 26.0 - 34.0 pg MCHC 32.7 32.0 - 36.0 % RDW 14.6 (H) 11.5 - 14.5 % Platelets 321 140 - 440 10*3/uL MPV 8.8 7.4 - 10.4 fL Hemoglobin A1c Collection Time: 11/18/20 1:00 AM Result Value Ref Range Hemoglobin A1C 5.5 % eAG 111 mg/dL Comprehensive Metabolic Panel w/ Reflex to MG Collection Time: 11/18/20 1:01 AM Result Value Ref Range Sodium 135 135 - 145 mmol/L Potassium 3.8 3.5 - 5.1 mmol/L Chloride 100 98 - 107 mmol/L CO2 30 22 - 30 mmol/L Anion Gap 5 3 - 13 mmol/L Glucose 103 (H) 70 - 100 mg/dL BUN 16 7 - 20 mg/dL CREATININE 0.67 0.52 - 1.25 mg/dL eGFR >90.0 >60 mL/min EGFR IF NonAfrican [place] Islander 85.8 >60 mL/min Calcium 9.1 8.4 - 10.4 mg/dL Albumin,Serum 3.8 3.5 - 5.0 g/dL Total Protein 7.1 6.3 - 8.2 g/dL Total Bilirubin 0.8 0.2 - 1.3 mg/dL Alkaline Phosphatase 180 (H) 38 - 126 U/L ALT 25 0 - 34 U/L AST 43 15 - 46 U/L Lipid panel - fasting Collection Time: 11/18/20 1:01 AM Result Value Ref Range Cholesterol 148 <200 mg/dL Triglycerides 277 (A) <150 mg/dL HDL 30 (L) 40 - 60 mg/dL LDL Cholesterol 63 <100 mg/dL Chol/HDL Ratio 5 NA Troponin Collection Time: 11/18/20 1:01 AM Result Value Ref Range Troponin I 0.064 (H) 0.000 - 0.034 ng/mL COVID-19 Collection Time: 11/18/20 5:29 PM Specimen: Other NARES Result Value Ref Range SARS-CoV-2 Not Detected. Not Detected Assessment resolving delirium history of treatment for depression with anxiety Plan Medications as ordered. followup with PCP and present prescribing psychaitrist as able after stay in rehabilitation facility. * Jeannie Rodriguez OT - 11/18/2020 2:15 PM EDT Occupational Therapy Facility/Department: [facility] Daily Treatment Note NAME: Lavelle Rueda : 1945 Date of Service: 11/18/2020 Discharge Recommendations: (Facility-based) Assessment Performance deficits / Impairments: Decreased functional mobility ;Decreased ADL status;Decreased strength;Decreased safe awareness;Decreased cognition;Decreased endurance;Decreased balance;Decreasedhigh-level IADLs Assessment: Pt admission complicated by acute right occipital infarct s/p CABG. No OT re-eval necessary. Goals and POC still appropriate. No new deficits since initial eval. Continues to need assist with standing ADL tasks. Recommending facility-based at disch. Prognosis: Good Decision Making: Medium Complexity OT Education: Plan of Care;OT Role;Precautions;Transfer Training REQUIRES OT FOLLOW UP: Yes Activity Tolerance Activity Tolerance: Patient Tolerated treatment well Safety Devices Safety Devices in place: Yes Type of devices: Call light within reach;Patient at risk for falls;Nurse notified;Gait belt;Left inchair;Chair alarm in place Restraints Initially in place: No Patient Diagnosis(es): There were no encounter diagnoses. has a past medical history of CAD (coronary artery disease), Hyperlipidemia, Hypertension, Iron deficiency anemia, and Neuropathy. has a past surgical history that includes Cardiac catheterization (10/30/2020); Cardiac catheterization (2005); and Appendectomy (1952). Restrictions Restrictions/Precautions Restrictions/Precautions: Surgical Protocols, Fall Risk (IV; tele) Required Braces or Orthoses?: No Other: Sternal Precautions Sternal Precautions: No Pushing, No Pulling, 10# Lifting Restrictions Subjective General Chart Reviewed: Yes Patient assessed for rehabilitation services?: Yes Family / Caregiver Present: No Diagnosis: CABG x 4. Stay complicated secondary to acute right occipital lobe infarct. General Comment Comments: Pt seen sitting reclined in bedside chair. Agreeable to OT. RN approving session. Vital Signs Patient Currently in Pain: Denies Objective ADL Feeding: Independent LE Dressing: Minimal assistance (Hospital pants) Additional Comments: 1 verbal cue to maintain sternal precautions. Balance Standing Balance: Minimal assistance Standing Balance Activity: Functional reaching BUE with weight shifting laterally as ADL functional precursor Transfers Sit to stand: Minimal assistance Stand to sit: Minimal assistance Transfer Comments: 1 cue to maintain sternal precautions Coordination Fine Motor: WFL Vision Vision Comment: Denies acute changes. Grossly WFL. LUE AROM (degrees) LUE AROM : WFL RUE AROM (degrees) RUE AROM : WFL Plan Plan Times per week: 5-7 Plan weeks: 4 Current Treatment Recommendations: Balance Training, Functional Mobility Training, Endurance Training, Gait Training, Pain Management, Safety Education & Training, Patient/Caregiver Education & Training, Equipment Evaluation, Education, & procurement, Self-Care / ADL, Home Management Training Goals Short term goals Time Frame for Short term goals: 4 weeks Short term goal 1: grooming at sink in FWW SBA--NOT ADDRESSED Short term goal 2: toileting SBA--NOT ADDRESSED Short term goal 3: sternal prec during ADL no cues--PROGRESSING Short term goal 4: LBD with AE SBA--PROGRESSING Patient Goals Patient goals : Pt did not state. Therapy Time Individual Concurrent Group Co-treatment Time In 1350 Time Out 1403 Minutes 13 Timed Code Treatment Minutes: 13 Minutes (1- self) Jeannie Rodriguez OTR/L * Yamile Carson, ADJUNCT INSTRUCTOR IN ECONOMICS - AGENT CONTRACT CLERK - 11/18/2020 8:45 AM EDT PROGRESS NOTE. NEUROCRITICAL CARE Patient Name:Lavelle Rueda Patient : 1945 Acct: [id number] Date of Admission: 10/31/2020 Room/Bed: [place] [address] PCP: No primary care provider on file. Patient location ICU Remains in the hospital due to persistent unresolved acute issues, Subjective:75yo F episode of worsening slurred speech and L facial weakness shortly after rhythm changes with VTACH. Recent open heart surgery 15 days ago for CABG in the setting of NSTEMI. Currentlyon aspirin and heparin. CTH revealed subacute stroke R temporal parietal area. No need for MRI since it was visible on CTH. New Complain: Upon seeing her today alongside Dr Cali, she is reolved and back to normal. She does have a slight weakness on the L face and L hand pronation that is minimal but there is no slurred speech. She subjectively is feeling good. Sedation:No Diet/TF:regular Miller: No VTE prophylaxis: YES SQ heparin q8h Antithrombotic therapy in first 24 hrs: Contraindicated because unknown LKW with low NIH, recent CABG Statin therapy for stroke stroke patients: High intensity Anticoagulation on AF patients: N/A no history of AF Activity: pt/ot Disposition: tbd Current Hospital Medications: Current Facility-Administered Medications: [Held by provider] 0.9 % sodium chloride infusion, , Intravenous, Continuous, Porfirio Bridges DO, LastRate: 50 mL/hr at 11/17/202058, New Bag at 11/17/202058 sodium chloride flush 0.9 % injection 5-40 mL, 5-40 mL, Intravenous, 2 times per day, Porfirio Bridges DO, 10 mL at 11/18/20826 sodium chloride flush 0.9 % injection 5-40 mL, 5-40 mL, Intravenous, PRN, Porfirio Bridges DO 0.9 % sodium chloride infusion, 25 mL, Intravenous, PRN, Porfirio Bridges DO ondansetron (ZOFRAN) injection 4 mg, 4 mg, Intravenous, Q6H PRN, Porfriio Bridges DO labetalol (NORMODYNE;TRANDATE) injection 10 mg, 10 mg, Intravenous, Q10 Min PRN, Porfirio Bridges DO bisacodyl (DULCOLAX) EC tablet 5 mg, 5 mg, Oral, Daily PRN, Porfirio Bridges DO enoxaparin (LOVENOX) injection 40 mg, 40 mg, Subcutaneous, Daily, Porfirio Bridges DO, 40 mg at 11/18/20 08 perflutren lipid microspheres (DEFINITY) injection 1.65 mg, 1.5 mL, Intravenous, ONCE PRN, Porfirio Bridges DO sodium chloride flush 0.9 % injection 5-40 mL, 5-40 mL, Intravenous, PRN, Porfirio Bridges DO aspirin tablet 325 mg, 325 mg, Oral, Daily, Marvin Barrientos DO, 325 mg at 11/18/20826 LORazepam (ATIVAN) tablet 0.5 mg, 0.5 mg, Oral, Q4H PRN, LUCIANO Parsons CNP, 0.5 mg at 11/18/20 06 furosemide (LASIX) tablet 40 mg, 40 mg, Oral, Daily, LUCIANO Parsons CNP, 40 mg at 11/18/20826 promethazine (PHENERGAN) injection 6.25 mg, 6.25 mg, Intravenous, Q6H PRN, LUCIANO Parsons CNP, 6.25 mg at 11/15/20 1012 miconazole (MICOTIN) 2 % powder, , Topical, BID, Stephen Poole MD, Given at 11/18/20 0828 calcium carbonate (TUMS) chewable tablet 500 mg, 500 mg, Oral, TID PRN, SANDRA Patino CNP, 500 mg at 11/15/20 0817 ibuprofen (ADVIL;MOTRIN) tablet 800 mg, 800 mg, Oral, Q8H PRN, LUCIANO Parsons CNP ipratropium-albuterol (DUONEB) nebulizer solution 1 ampule, 1 ampule, Inhalation, Q4H PRN, Chase Sheffield MD amiodarone (CORDARONE) tablet 200 mg, 200 mg, Oral, BID, Rossy Garland MD, 200 mg at 11/18/20 0827 diphenhydrAMINE (BENADRYL) injection 50 mg, 50 mg, Intravenous, Q6H PRN, Chano Arndt MD [Held by provider] metoprolol (LOPRESSOR) injection 5 mg, 5 mg, Intravenous, Q5 Min PRN, Bebeto Washington APRN - AGENT CONTRACT CLERK, 5 mg at 11/09/20 0543 lidocaine 4 % external patch 1 patch, 1 patch, Transdermal, Daily, Eligio Gandara MD, 1 patch at 11/18/20 0828 0.9 % sodium chloride infusion, , Intravenous, PRN, Carmelo Brown APRN - AGENT CONTRACT CLERK acetaminophen (TYLENOL) suppository 650 mg, 650 mg, Rectal, Q4H PRN, Carmelo Brown APRN - KATHERYN [Held by provider] metoprolol (LOPRESSOR) injection 5 mg, 5 mg, Intravenous, Q6H PRN, Carmelo Brown APRN - AGENT CONTRACT CLERK, 5 mg at 11/07/20 1831 pantoprazole (PROTONIX) tablet 40 mg, 40 mg, Oral, QAM AC, Carmelo Brown APRN - AGENT CONTRACT CLERK, 40 mg at 11/18/20 0615 [Held by provider] QUEtiapine (SEROQUEL) tablet 12.5 mg, 12.5 mg, Oral, BID PRN, Carmelo Brown APRN - KATHERYN, 12.5 mg at 11/11/20 0501 [Held by provider] amLODIPine (NORVASC) tablet 5 mg, 5 mg, Oral, Daily, Carmelo Brown, ADJUNCT INSTRUCTOR IN ECONOMICS - AGENT CONTRACT CLERK, 5 mg at 11/10/20 0855 sodium chloride flush 0.9 % injection 10 mL, 10 mL, Intravenous, PRN, Carmelo Brown, ADJUNCT INSTRUCTOR IN ECONOMICS - AGENT CONTRACT CLERK acetaminophen (TYLENOL) tablet 1,000 mg, 1,000 mg, Oral, Q8H, Carmelo Brown, ADJUNCT INSTRUCTOR IN ECONOMICS - AGENT CONTRACT CLERK, 1,000 mgat 11/18/20 0615 potassium chloride (KLOR-CON M) extended release tablet 20 mEq, 20 mEq, Oral, PRN, Carmelo Brown,ADJUNCT INSTRUCTOR IN ECONOMICS - AGENT CONTRACT CLERK, 20 mEq at 11/14/20 0806 polyethylene glycol (GLYCOLAX) packet 17 g, 17 g, Oral, Daily, Carmelo Brown, ADJUNCT INSTRUCTOR IN ECONOMICS - AGENT CONTRACT CLERK, 17 g at11/18/20 0827 sennosides-docusate sodium (SENOKOT-S) 8.6-50 MG tablet 2 tablet, 2 tablet, Oral, Nightly, Carmelo Brown, ADJUNCT INSTRUCTOR IN ECONOMICS - AGENT CONTRACT CLERK, 2 tablet at 11/17/20 2100 potassium chloride 20 mEq/50 mL IVPB (Central Line), 20 mEq, Intravenous, PRN, Carmelo Brown, ADJUNCT INSTRUCTOR IN ECONOMICS - AGENT CONTRACT CLERK magnesium sulfate 2000 mg in 50 mL IVPB premix, 2,000 mg, Intravenous, PRN, Carmelo Montez Stephanie, ADJUNCT INSTRUCTOR IN ECONOMICS -AGENT CONTRACT CLERK, Stopped at 11/10/20 2307 calcium gluconate 2,000 mg in dextrose 5 % 100 mL IVPB, 2,000 mg, Intravenous, PRN, Carmelo Brown, ADJUNCT INSTRUCTOR IN ECONOMICS - AGENT CONTRACT CLERK, Stopped at 11/05/20 0611 glucose (GLUTOSE) 40 % oral gel 15 g, 15 g, Oral, PRN, Carmelo Montez Stephanie, ADJUNCT INSTRUCTOR IN ECONOMICS - AGENT CONTRACT CLERK dextrose 50 % IV solution, 12.5 g, Intravenous, PRN, Carmelo Montez Stephanie, ADJUNCT INSTRUCTOR IN ECONOMICS - AGENT CONTRACT CLERK glucagon (rDNA) injection 1 mg, 1 mg, Intramuscular, PRN, Carmelo R Stephanie, ADJUNCT INSTRUCTOR IN ECONOMICS - AGENT CONTRACT CLERK dextrose 5 % solution, 100 mL/hr, Intravenous, PRN, Carmelo R Stephanie, ADJUNCT INSTRUCTOR IN ECONOMICS - AGENT CONTRACT CLERK sodium chloride flush 0.9 % injection 5-40 mL, 5-40 mL, Intravenous, 2 times per day, Nolan Boss MD, 10 mL at 11/18/20 0827 atorvastatin (LIPITOR) tablet 80 mg, 80 mg, Oral, Nightly, Nolan Boss MD, 80 mg at melatonin tablet 3 mg, 3 mg, Oral, Nightly, Mukesh Ricci MD, 3 mg at 11/17/202099 Continuous Infusions: [Held by provider] sodium chloride 50 mL/hr at 11/17/202058 sodium chloride sodium chloride dextrose Allergies: Aspartame, Beef-derived products, Contrast [iodides], Diazepam, Food, Iodine, Lactose, Other, Pork allergy, Saccharin, Sucralose, Tomato, and Soy allergy Review of Systems Constitutional: Positive for activity change. HENT: Negative for congestion, dental problem and drooling. Eyes: Negative for discharge and visual disturbance. Respiratory: Negative for apnea and chest tightness. Cardiovascular: Negative for chest pain and leg swelling. Gastrointestinal: Negative for abdominal distention, abdominal pain and anal bleeding. Endocrine: Negative for cold intolerance, heat intolerance and polydipsia. Genitourinary: Negative for difficulty urinating, dyspareunia and dysuria. Musculoskeletal: Negative for arthralgias and back pain. Neurological: Positive for facial asymmetry, speech difficulty and weakness. Negative for dizziness, tremors, seizures, syncope, light-headedness, numbness and headaches. Psychiatric/Behavioral: Negative for agitation, behavioral problems and confusion. Objective: Telemetry: Arrhythmia:No Physical Examination: Patient Vitals for the past 8 hrs: BP Temp Temp src Pulse Resp SpO2 Height Weight 11/18/20 0800 126/63 98 F (36.7 C) Oral 66 15 93 % 11/18/20 0700 127/66 65 93 % 11/18/20 0600 137/84 83 16 97 % 11/18/20 0500 120/70 75 15 98 % 11/18/20 0400 (!) 137/58 78 16 94 % 11/18/20 0300 121/70 72 15 97 % 5' 6 (1.676 m) 138 lb 3.2 oz (62.7 kg) 11/18/20 0200 (!) 142/63 75 16 93 % 11/18/20 0100 134/69 75 15 95 % General Physical Examination: General: awake post female HEENT:Normocephalic, atraumaticl CV: s1s2 present RRR Pulm:diminshed Abdomen: Soft NT/ND. BS + Skin: right steronotomy looked good . Extremities: third spacing Post surgical sutures , grafts Orthopedic limitation; N/A Pulses: Intact peripherally Carotid auscultation :No bruits Neurological Examination: Higher Functions: Mental Status Exam: Level of Alertness:Awake Orientation: Normal to self, time, place Memory: Normal Fund of Knowledge: Normal Language: Normal Dysarthria present Cranial Nerves: -II Visual acuity: normal -II Visual davis: normal -III Pupils (~ 3 mm OD, 3 mm OU) equal, round, reactive to light -III-IV- Extraocular Movements: intact -Nystagmus normal -Saccades and pursuits abnormal -V Facial sensation: intact Corneal's Intact bilateral -VII Facial strength: abnormal mild L face -VIII Hearing: intact -IX-X- Gag reflex present -X Palate:abnormal normal -XI Shoulder shrug: abnormal normal -XII Tongue movement: normal Funduscopic Exam: normal, no edema or exudates both eyes Motor Examination: Tone after evaluation of 4 limbs, the following findings applied: consistent with her poor muscle mass . . -Bulk: generalized atrophy due to malnourishment anddeconditioning -Muscle Stretchafter evaluation of all limbs, and axial musculature the following findings applied: Drift: minimal L hand pronation upward . -Reflexes: after evaluation of 4 limbs, the following findings applied ; Abnormal -Plantar responce: Flexor bilaterally Sensory Intact to light touch, pain / temperature, proprioception, Coordination: Arms Normal finger to nose Legs Intact heel knee king testing Tremors not present Gait abnormal, unable to walk NIHSS 1a Level of consciousness: 0=alert; keenly responsive 1b. LOC questions: 0=Performs both tasks correctly 1c. LOC commands: 0=Performs both tasks correctly 2. Best Gaze: 0=normal 3. Visual: 0=No visual loss 4. Facial Palsy: 1 5a. Motor left arm: 0=No drift, limb holds 90 (or 45) degrees for full 10 seconds 5b. Motor right arm: 0=No drift, limb holds 90 (or 45) degrees for full 10 seconds 6a. motor left le=No drift, limb holds 90 (or 45) degrees for full 10 seconds 6b Motor right le=No drift, limb holds 90 (or 45) degrees for full 10 seconds 7. Limb Ataxia: 0=Absent 8. Sensory: 0=Normal; no sensory loss 9. Best Language: 0=No aphasia, normal 10. Dysarthria: 0 11. Extinction and Inattention: 0=No abnormality 12. Distal motor function: 0=Normal Total: 1 Did not score for L hand pronation ANCILLARY Last 24hrs Recent Results (from the past 24 hour(s)) POCT Glucose Collection Time: 11/17/20 11:54 AM Result Value Ref Range POC Glucose 104 (H) 70 - 100 mg/dL CBC Collection Time: 11/18/20 1:00 AM Result Value Ref Range WBC 9.9 3.6 - 10.7 10*3/uL RBC 5.03 3.80 - 5.20 10*6/uL Hemoglobin 14.5 11.7 - 16.0 g/dL Hematocrit 44.3 35.0 - 47.0 % MCV 88.1 79.0 - 98.0 fL MCH 28.8 26.0 - 34.0 pg MCHC 32.7 32.0 - 36.0 % RDW 14.6 (H) 11.5 - 14.5 % Platelets 321 140 - 440 10*3/uL MPV 8.8 7.4 - 10.4 fL Hemoglobin A1c Collection Time: 11/18/20 1:00 AM Result Value Ref Range Hemoglobin A1C 5.5 % eAG 111 mg/dL Comprehensive Metabolic Panel w/ Reflex to MG Collection Time: 11/18/20 1:01 AM Result Value Ref Range Sodium 135 135 - 145 mmol/L Potassium 3.8 3.5 - 5.1 mmol/L Chloride 100 98 - 107 mmol/L CO2 30 22 - 30 mmol/L Anion Gap 5 3 - 13 mmol/L Glucose 103 (H) 70 - 100 mg/dL BUN 16 7 - 20 mg/dL CREATININE 0.67 0.52 - 1.25 mg/dL eGFR >90.0 >60 mL/min EGFR IF NonAfrican [place]er 85.8 >60 mL/min Calcium 9.1 8.4 - 10.4 mg/dL Albumin,Serum 3.8 3.5 - 5.0 g/dL Total Protein 7.1 6.3 - 8.2 g/dL Total Bilirubin 0.8 0.2 - 1.3 mg/dL Alkaline Phosphatase 180 (H) 38 - 126 U/L ALT 25 0 - 34 U/L AST 43 15 - 46 U/L Lipid panel - fasting Collection Time: 11/18/20 1:01 AM Result Value Ref Range Cholesterol 148 <200 mg/dL Triglycerides 277 (A) <150 mg/dL HDL 30 (L) 40 - 60 mg/dL LDL Cholesterol 63 <100 mg/dL Chol/HDL Ratio 5 NA Troponin Collection Time: 11/18/20 1:01 AM Result Value Ref Range Troponin I 0.064 (H) 0.000 - 0.034 ng/mL Stroke Specific: Lipids: Recent Labs 11/18/20 0101 CHOL 148 LDLCHOLESTEROL 63 TRIG 277* HDL 30* HgA1c: Recent Labs 11/18/20 0100 LABA1C 5.5 Radiology: EKG 11/18/20: Measurements Intervals [place] Rate: 76 P: 63 MD: 127 QRS: 26 QRSD: 91 T: 184 QT: 444 QTc: 500 Interpretive Statements Sinus rhythm Probable left ventricular hypertrophy Abnrm T, consider ischemia, anterolateral lds NIKI 10/31/20:FINDINGS LEFT VENTRICLE: The cavity size is normal. Systolic function is normal. RIGHT VENTRICLE: The cavity size is normal. Systolic function is normal. LEFT ATRIUM: The atrium is normal in size. There is no evidence of a thrombus in the atrial cavity or appendage. No spontaneous echo contrast is observed. The appendage is of normal size. Emptying velocity is normal. RIGHT ATRIUM: The atrium is normal in size. MITRAL VALVE: Structurally normal valve. Leaflet separation is normal. Doppler: There is mild, 1+ regurgitation. AORTIC VALVE: Cusp separation is normal. Doppler: There is no stenosis. There is trivial, less than 1+ regurgitation. TRICUSPID VALVE: Leaflet separation is normal. Doppler: There is mild, 1+ regurgitation. PULMONIC VALVE: Cusp separation is normal. Doppler: There is mild, 1+ regurgitation. AORTA: The aorta is moderately diseased. There is no evidence for aneurysm. There is no evidence for dissection. Aortic root: The aortic root is not dilated. PULMONARY ARTERY: The main pulmonary artery is normal in size. PERICARDIUM: There is no pericardial effusion. ECHO: pending Carotids Dup 11/01/20:Conclusions 1. Normal antegrade flow involving the left vertebral artery. 2. Normal antegrade flow involving the right vertebral artery. 3. Mild carotid disease present with less than 50% stenosis involving the right internal carotid artery. 4. Mild carotid disease present with less than 50% stenosis involving the left internal carotid artery. CTH 11/04/20:IMPRESSION: No acute findings. CTH 11/17/20:IMPRESSION: Acute infarction of the right occipital lobe. No evidence of acute intracranial hemorrhage. Diminished cerebral volume and evidence of chronic white matter small vessel ischemic change. Atherosclerosis. ASSESSMENT / PLAN/RECOMMENDATIONS: Subacute R temporal parietal stroke -not acute, thought to be several days ago -ETIOLOGY: suspect cardioembolic (periprocedure vs rhythm changes) -MRI not needed, stroke already with hypodensity on CTH -recent carotid studies up to date -suggest repeat ECHO per cardiology -dependent on ECHO results, possible NIKI (per cardiology) -optimal hydration with fluids 50cc/hr -SBP >140 to avoid hemorrhagic transformation -PT/OT -rehab consult -tele monitoring -aspirin 81 -atorvastatin 80 (already on previously) -continue with DVT ppx -would suggest event monitor per cardiology if no AFIB detected on admission -outpatient stroke follow up -Optimization of vascular risk factors as stated below L facial droop -2/2 above HTN -goal as mentioned above HPL/Hypertriglyceridemia -LDL 114 -TRIG 277 -statin as mentioned above CAD -aspirin and statin as above -cardiology following Elevated troponin -monitor and trend Hx of anemia -currently stable at 14.5 Pt is back to normal with no slurred speech.She does have slight facial droop and L hand pronation.No further suggestions at this time. Again this is subacute and did happen a few days ago. Would suggest optimization of vascular risk factors and will have her follow up with neurology outpatient. If any signs of AFIB or if ECHO is repeated with thrombus would suggest OAC. Stroke discharge Plan; Antithrombotic / anticoagulation therapy plan for discharge: aspirin 81 unless specified differently from cardiology History of Atrial Fibrillation; No Anticoagulation plan for discharge; N/A Statin for LDL > 70 : Yes Anticoagulation plan for discharge; N/A Referral sleep medicine MICAH: N/A Referral weight management institute: N/A Diabetic management: N/A HTN management: BP goals ; Yes <140 Follow up appointment: With PCPFollow up with neurologyCardiology{ Will sign off, no further neuro recommendations. Please let us know if you have any further questions or concerns. PHQ2 Over the las 2 weeks, how often have you been bothered by the following problems; - Little interest or pleasure in doing things Not at all = 0 - Feeling down, depressed or hopeless Not at all = 0 - Final score: 0 = No need for further action Patient seen and discussed with Dr. Cali * Rupa Taylor SLP - 11/18/2020 7:26 AM EDT Speech Language Pathology Patient passed the Nursing Swallowing Screening and is on a Regular diet, Cardiac: Low fat, Low cholesterol. High Fiber, DARYN with Thin liquids. Completed speech orders as per stroke protocol. * Carmelo Brown APRN - CNP - 11/18/2020 5:38 AM EDT Images from the original note were not included. Cardiothoracic Surgery Progress Note PATIENT NAME: Lavelle Rueda TODAY'S DATE: 11/18/2020 Surgery/Procedure: 6: CABGx4: PERRY to mid LAD, Ao to Ramus w rsvg; Ao to OM1 to RCA PDA sequential w rsvg; left legevH Events 11/18/2020 - Stroke team called - 9 second Run of SVT A-tach - Interval History: POD#14: VSS - no new events post stroke team activation - Labs stable Last recorded/verified vitals in [facility] BP 120/70 Pulse 75 Temp 98.2 F (36.8 C) (Oral) Resp 15 Ht 5' 6 (1.676 m) Wt 138 lb 3.2 oz (62.7 kg) SpO2 98% BMI 22.31 kg/m Recent Labs 11/18/20 0100 11/18/20 010 WBC 9.9 -- HGB 14.5 -- PLT 321 -- NA -- 135 K -- 3.8 CREATININE -- 0.67 Physical Exam Vitals reviewed. Constitutional: General: She is not in acute distress. Appearance: Normal appearance. She is well-developed. She is not diaphoretic. HENT: Head: Normocephalic and atraumatic. Mouth/Throat: Pharynx: No oropharyngeal exudate. Eyes: General: No scleral icterus. Right eye: No discharge. Left eye: No discharge. Pupils: Pupils are equal, round, and reactive to light. Neck: Thyroid: No thyromegaly. Vascular: No JVD. Cardiovascular: Rate and Rhythm: Normal rate and regular rhythm. Chest Wall: PMI is not displaced. Pulses: Normal pulses. Heart sounds: Normal heart sounds. No murmur heard. No gallop. Pulmonary: Effort: No accessory muscle usage or respiratory distress. Breath sounds: Normal breath sounds. No wheezing or rales. Abdominal: General: Bowel sounds are normal. There is no distension or abdominal bruit. Palpations: Abdomen is soft. There is no shifting dullness or hepatomegaly. Tenderness: There is no abdominal tenderness. Musculoskeletal: General: No deformity. Normal range of motion. Cervical back: Normal range of motion. Skin: General: Skin is warm and dry. Findings: No rash. Neurological: Mental Status: She is alert and oriented to person, place, and time. Cranial Nerves: No cranial nerve deficit. Sensory: No sensory deficit. Psychiatric: Thought Content: Thought content normal. ASSESSMENT/PLAN: CAD s/p CABGx4 HTN HLD Acute encephalopathy/delirium: multifactorial-medication withdrawal; anaesthesia, surgery-resolved POAF Subacute right temporo parietal infarction this is not acute and not a complication of the procedure felt to be chronic exacerbated by A-tach - neuro to see today and clear the patient for DC - also needs speech re-eval - symptoms resolved Atrial Tachycardia chronic - No changes in medications per EP Disposition: Neuro to see today and clear for Dispo to [facility] Cardiac Core Medications: ASA, Statin and BB Post operative pulm management: Normal Post-Operative Course PT recs: To [facility] for rehab Speech: Swallow-11/08: regular diet with thin liquids (no straws) Re eval today EF: 65%-11/01/20 Blood Conservation: 11/04: plt + 2 units PRBC. DVT prophylaxis: TEDs, SCDs and Lovenox Treatment Team: Primary Care Provider: No primary care provider on file. Cardiology: Dr. Goldman CCM: Dr. Serrano Endocrinology: Dr. Mcdonnell Psychiatry: Dr. Goodwin Disclaimer INFORMED CONSENT:The nature and purpose of the proposed treatment or procedure have been discussed.The risks and benefits of the proposed treatment or procedures have been reviewed. Alternatives have been reviewed in addition to the risks and benefits of not receiving treatments or undergoing procedures. Pursuant to this discussion, the patient agrees to undergo the proposed treatment or procedure. Captured images seen in this note from are not a substitute for a comprehensive interpretation of the entire data set as reflected by the interpreting physician with regard to radiology, echocardiography, and other diagnostic images. This note may have been dictated using [employer] Practice Edition 2.6 and/or [employer] [place] Voice Recognition Feature. The document was proofread, however unrecognized voice recognition antisqueak filler errors may be present. * Mamie Engle RN - 11/17/2020 6:14 PM EDT Rn attempted to page Neuro Resident Dr. Foster twice through paging system with no response regarding patient orders following stroke team. Dr. Cali also paged at 1512 regarding elevated BP, and patient waxing and waning stroke symptoms with message read at 1512 and no response or no new orders placed. Neuro checks continued on patient throughout the shift, and have been negative since episode.Dr. Cali paged again, call received and she stated that she will contact the resident to place the orders. Dr. Cali returned a call and stated that the med team [address] Bridges would manage the stroke order set, and she will contact him. Dr. Bridges Contacted RN to let her know that he would be placing the stroke order set for the patient. * Quincy Michel MD - 11/17/2020 1:08 PM EDT CARDIOLOGY PROGRESS NOTE Chart and interval events reviewed. Reason for Visit SVT SUBJECTIVE: Lavelle Rueda states that it is difficult to talk. She is also slightly short of breath. Discussed with nurse and patient. Evidently she had facial droop and some slurred speech and a stroke teamwas called. She is just returned from CT scan. SCHEDULED MEDICATIONS: furosemide 40 mg Oral Daily miconazole Topical BID amiodarone 200 mg Oral BID enoxaparin 40 mg Subcutaneous Daily lidocaine 1 patch Transdermal Daily aspirin 325 mg Oral Daily pantoprazole 40 mg Oral QAM AC [Held by provider] amLODIPine 5 mg Oral Daily acetaminophen 1,000 mg Oral Q8H polyethylene glycol 17 g Oral Daily sennosides-docusate sodium 2 tablet Oral Nightly sodium chloride flush 5-40 mL Intravenous 2 times per day atorvastatin 80 mg Oral Nightly melatonin 3 mg Oral Nightly Principal Problem: S/P CABG (coronary artery bypass graft) Active Problems: NSTEMI (non-ST elevated myocardial infarction) ([facility]) Resolved Problems: Disease Stress hyperglycemia Encephalopathy acute Review of Systems: Review of Systems Respiratory: Positive for shortness of breath. Cardiovascular: Negative for palpitations. Neurological: Positive for speech difficulty. VITAL SIGNS: Vitals: 11/17/20 0300 11/17/20 0400 11/17/20 0417 11/17/20 0500 BP: (!) 150/63 (!) 150/63 Pulse: 72 75 94 69 Resp: Temp: 97.9 F (36.6 C) TempSrc: SpO2: Weight: Height: No intake or output data in the 24 hours ending 11/17/20 1308 Patient Vitals for the past 96 hrs (Last 3 readings): Weight 11/16/20 2200 142 lb (64.4 kg) 11/16/20 0000 143 lb 3.2 oz (65 kg) 11/15/20 0300 142 lb 12.8 oz (64.8 kg) Physical Exam: Physical Exam Vitals and nursing note reviewed. Constitutional: General: She is not in acute distress. Appearance: She is well-developed. She is not toxic-appearing or diaphoretic. HENT: Head: Normocephalic and atraumatic. Right Ear: External ear normal. Left Ear: External ear normal. Nose: Nose normal. Eyes: General: No scleral icterus. Right eye: No discharge. Left eye: No discharge. Conjunctiva/sclera: Conjunctivae normal. Pupils: Pupils are equal, round, and reactive to light. Cardiovascular: Rate and Rhythm: Normal rate and regular rhythm. Heart sounds: No murmur heard. Pulmonary: Effort: Pulmonary effort is normal. No respiratory distress. Breath sounds: Normal breath sounds. No wheezing or rales. Chest: Chest wall: No tenderness. Musculoskeletal: Cervical back: Normal range of motion. Right lower leg: No edema. Left lower leg: No edema. Skin: General: Skin is warm and dry. Coloration: Skin is not pale. Findings: No erythema or rash. Neurological: General: No focal deficit present. Mental Status: She is alert and oriented to person, place, and time. Psychiatric: Behavior: Behavior normal. Thought Content: Thought content normal. Judgment: Judgment normal. Data: Scheduled Meds: Reviewed Continuous Infusions: sodium chloride dextrose CBC: Recent Labs 11/15/20 0013 WBC 11.0* HGB 12.5 HCT 37.3 PLT 168 BMP: Recent Labs 11/15/20 0145 NA 134* K 4.2 CL 101 CO2 27 BUN 15 CREATININE 0.52 INR:No results for input(s): INR in the last 72 hours. No results for input(s): BNP in the last 72 hours. TSH: Lab Results Component Value Date TSH 0.425 (L) 10/31/2020 Cardiac Injury Profile: No results for input(s): CKTOTAL, CKMB, TROPONINI in the last 72 hours. Lipid Profile: Lab Results Component Value Date TRIG 74 10/31/2020 HDL 47 10/31/2020 CHOL 176 10/31/2020 EKG: See Report Telemetry Reviewed: 9 seconds of SVT is noted likely nonsustained atrial tachycardia. Also, periodsof PACs and PVCs. No atrial fibrillation. No significant bradycardia. Echo: See Report IMPRESSIONS/RECOMMENDATIONS: 1. SVT: Patient had a 9-second run of supraventricular tachycardia likely atrial tachycardia notably with no offset pause. Would continue the amiodarone at 200 mg daily. Additionally she is having premature atrial contractions as well as periods of PVCs. Her blood pressure has been stable and theseare perfusing rhythms that are not likely responsible for any change in mental status and slurred speech etc. Would defer to neurology and primary service for any further work-up. 2. Atrial fibrillation: Postoperatively treated with amiodarone. Electronicallysigned by Quincy Michel MD on 11/17/2020 at 1:08 PM * HernandezAlexw, [employer] - AGENT CONTRACT CLERK - 11/17/2020 6:33 AM EDT Images from the original note were not included. Cardiothoracic Surgery Progress Note PATIENT NAME: Lavelle Rueda TODAY'S DATE: 11/17/2020 Surgery/Procedure: 11/04: CABGx4: PERRY to mid LAD, Ao to Ramus w rsvg; Ao to OM1 to RCA PDA sequential w rsvg; left legevH Interval History: POD#13: VSS; slightly hypertensive. On RA. Lost IV access yesterday->multiple tries attempting to place PIV. Ok for no IV access-->anticipating d/c tomorrow hopefully. Net IO Since Admission: 428 mL [11/17/20 0633] Physical Exam Constitutional: No acute distress Psychiatric: Alert and oriented and mood and affect is appropriate, following commands Respiratory: Lungs are diminished in bases, with no rales or wheezes noted, respiratory effort is normal and symmetrical and with good air movement bilaterally Heart/Vasc: Normal rate, regular rhythm, normal S1 S2, no murmur, gallop or friction rub noted and peripheral pulses equal, intact, bilaterally Abdominal/: abdomen soft, non-tender, non-distended; Miller Catheter: []Yes [x] No Skin/Incisions:Healing appropriately, well approximated, no drainage noted, and with no signs of infection Temporary Pacemaker Wires: []Yes [x] No Invasive Lines: []Yes [x] No Type: ASSESSMENT/PLAN: CAD s/p CABGx4 HTN HLD Acute encephalopathy/delirium: multifactorial-medication withdrawal; anaesthesia, surgery-resolved POAF No changes to medications: continue PT/OT. Dispo planning Cardiac Core Medications: ASA, Statin and BB Post operative pulm management: Normal Post-Operative Course PT recs: IP rehab-11/13 Speech: Swallow-11/08: regular diet with thin liquids (no straws) EF: 65%-11/01/20 Blood Conservation: 11/04: plt + 2 units PRBC. DVT prophylaxis: TEDs, SCDs and Lovenox Disposition: awaiting precert to [facility]. Treatment Team: Primary Care Provider: No primary care provider on file. Cardiology: Dr. Goldman CCM: Dr. Serrano Endocrinology: Dr. Mcdonnell Psychiatry: Dr. Goodwin Disclaimer INFORMED CONSENT:The nature and purpose of the proposed treatment or procedure have been discussed.The risks and benefits of the proposed treatment or procedures have been reviewed. Alternatives have been reviewed in addition to the risks and benefits of not receiving treatments or undergoing procedures. Pursuant to this discussion, the patient agrees to undergo the proposed treatment or procedure. Captured images seen in this note from are not a substitute for a comprehensive interpretation of the entire data set as reflected by the interpreting physician with regard to radiology, echocardiography, and other diagnostic images. This note may have been dictated using [employer] Practice Edition 2.6 and/or [employer] [place] Voice Recognition Feature. The document was proofread, however unrecognized voice recognition antisqueak filler errors may be present. * Filiberto Rosa, PT - 11/16/2020 10:45 AM EDT Physical Therapy Facility/Department: [facility] Daily Treatment Note NAME: Lavelle Rueda : 1945 Date of Service: 11/16/2020 Discharge Recommendations: IP Rehab PT Equipment Recommendations Equipment Needed: No Other: she does have a walker at home if she needs it. Assessment Body structures, Functions, Activity limitations: Decreased functional mobility ;Decreased safe awareness;Decreased balance;Decreased coordination;Decreased ROM;Decreased endurance;Decreased strength;Increased pain;Decreased posture Assessment: Pt with improved safety awareness, indep asking for pillow x2 for sit<>stand, pt still attempted to sit forward in recliner with UE, SBA for scooting. Preformed sit<>stand with CGA/min A, ambulated 10', 20' with no AD and CGA/SBA. Pt reporting fatigue upon completion of exercises/ambulation. Returned to bed with mod A for BLE, good adherence to sternal precautions. Per RN,pt in process of being admitted to facility for rehab. Continue to follow recommendation. Treatment Diagnosis: decreased functional mobility and independence. Activity Tolerance Activity Tolerance: Patient limited by fatigue;Patient limited by endurance Patient Diagnosis(es): There were no encounter diagnoses. has a past medical history of CAD (coronary artery disease), Hyperlipidemia, Hypertension, Iron deficiency anemia, and Neuropathy. has a past surgical history that includes Cardiac catheterization (10/30/2020); Cardiac catheterization (2005); and Appendectomy (1952). Restrictions Restrictions/Precautions Restrictions/Precautions: Surgical Protocols, Fall Risk Required Braces or Orthoses?: No Upper Extremity Weight Bearing Restrictions Right Upper Extremity Weight Bearing: (sternal precautions) Left Upper Extremity Weight Bearing: (sternal precautions) Other: Sternal Precautions Position Activity Restriction Sternal Precautions: No Pushing, No Pulling, 10# Lifting Restrictions Sternal Precautions: YES Other position/activity restrictions: +chair alarm Subjective General Chart Reviewed: Yes Response To Previous Treatment: Patient with no complaints from previous session. Family / Caregiver Present: No Subjective Subjective: Pt resting in chair, agreeable to PT treatment, reports that she would like to get backto bed afterwards. Pain Screening Patient Currently in Pain: No Vital Signs Patient Currently in Pain: No Orientation Orientation Overall Orientation Status: Within Functional Limits Cognition Objective Bed mobility Sit to Supine: Moderate assistance Scooting: Stand by assistance Comment: Pt required mod A for BLE into bed, SBA cues to scoot forward in chair/toilet without UE Transfers Sit to Stand: Minimal Assistance Stand to sit: Minimal Assistance;Contact guard assistance Comment: Pt completed stand from recliner with SBA, required min A to stand from commode for upwardfacilitation. Pt indep asked for pillow to complete transfer Ambulation Ambulation?: Yes WB Status: sternal precautions More Ambulation?: Yes Ambulation 1 Surface: level tile Device: No Device Assistance: Contact guard assistance Quality of Gait: slow stephanie, decreased step length bilaterally. Gait Deviations: Slow Stephanie;Decreased step length Distance: 10' Ambulation 2 Surface - 2: level tile Device 2: No device Assistance 2: Stand by assistance Quality of Gait 2: Pt with slow stephanie, reporting some fatigue, able to carry light conversation Distance: 20' Balance Posture: Good Sitting - Static: Good Sitting - Dynamic: Good Standing - Static: Fair Standing - Dynamic: Fair;- Exercises Upper Extremity: P&C pg 1-4 10 reps each with cueing for proper form AM-PAC Score AM-PAC Inpatient Mobility Raw Score : 11 (11/16/201043) AM-PAC Inpatient T-Scale Score : 33.86 (11/16/201043) Mobility Inpatient CMS 0-100% Score: 72.57 (11/16/201043) Mobility Inpatient CMS G-Code Modifier : CL (11/16/201043) Goals Short term goals Time Frame for Short term goals: 2 weeks Short term goal 1: bed mobility indep; progressing Short term goal 2: transfers indep.; progressing Short term goal 3: independent managing secretions; progressing Short term goal 4: independent performing P&C exercises and their progression; progressing Short term goal 5: independent following walking program and its progression, rating her own RPE and adjusting as she goes.; progressing Short term goal 6: follows sternal precautions all of the time.; progressing Patient Goals Patient goals : none stated Plan Plan Times per week: 6-7 Times per day: Daily Plan weeks: 2 Specific instructions for Next Treatment: dynamic standing balance, endurance, BLE strength Current Treatment Recommendations: Strengthening, Transfer Training, Endurance Training, Gait Training, Balance Training, Functional Mobility Training Plan Comment: cont. POC Safety Devices Type of devices: All fall risk precautions in place, Patient at risk for falls, Call light within reach, Left in bed Restraints Initially in place: No Therapy Time Individual Concurrent Group Co-treatment Time In 1010 Time Out 1033 Minutes 23 Timed Code Treatment Minutes: (1 xTP, 1 xFA) PT wore mask and gloves for duration of encounter Filiberto Rosa PT * Alphonso Hernandez APRN - KATHERYN - 11/16/2020 7:29 AM EDT Images from the original note were not included. Cardiothoracic Surgery Progress Note PATIENT NAME: Lavelle Rueda TODAY'S DATE: 11/16/2020 Surgery/Procedure: 11/04: CABGx4: PERRY to mid LAD, Ao to Ramus w rsvg; Ao to OM1 to RCA PDA sequential w rsvg; left legevH Interval History: POD#12: VSS; on and off O2; up to chair this morning with nsg. C/o sternal discomfort-likely related to position/retractor in surgery. Explained in detail to patient. SNF accepted: awaiting precert. Net IO Since Admission: 428 mL [11/16/20 0730] Recent Labs 11/14/20 0242 11/15/20 0013 11/15/20 0145 WBC 11.2* 11.0* -- HGB 13.3 12.5 -- PLT 208 168 -- NA 136 -- 134* K 3.5 -- 4.2 CREATININE 0.50* -- 0.52 Physical Exam Constitutional: No acute distress Psychiatric: Alert and oriented and mood and affect is appropriate, following commands Respiratory: Lungs are diminished in bases, with no rales or wheezes noted, respiratory effort is normal and symmetrical and with good air movement bilaterally Heart/Vasc: Normal rate, regular rhythm, normal S1 S2, no murmur, gallop or friction rub noted and peripheral pulses equal, intact, bilaterally Abdominal/: abdomen soft, non-tender, non-distended Miller Catheter: []Yes [x] No Skin/Incisions:Healing appropriately, well approximated, no drainage noted, and with no signs of infection Temporary Pacemaker Wires: []Yes [x] No Invasive Lines: []Yes [x] No Type: ASSESSMENT/PLAN: CAD s/p CABGx4 HTN HLD Acute encephalopathy/delirium: multifactorial-medication withdrawal; anaesthesia, surgery-resolved POAF No changes to medications: continue PT/OT. Dispo planning Cardiac Core Medications: ASA, Statin and BB Post operative pulm management: Normal Post-Operative Course PT recs: IP rehab-11/13 Speech: Swallow-11/08: regular diet with thin liquids (no straws) EF: 65%-11/01/20 Blood Conservation: 11/04: plt + 2 units PRBC. DVT prophylaxis: TEDs, SCDs and Lovenox Disposition: awaiting precert to [facility]. Treatment Team: Primary Care Provider: No primary care provider on file. Cardiology: Dr. Goldman CCM: Dr. Serrano Endocrinology: Dr. Mcdonnell Psychiatry: Dr. Goodwin Disclaimer INFORMED CONSENT:The nature and purpose of the proposed treatment or procedure have been discussed.The risks and benefits of the proposed treatment or procedures have been reviewed. Alternatives have been reviewed in addition to the risks and benefits of not receiving treatments or undergoing procedures. Pursuant to this discussion, the patient agrees to undergo the proposed treatment or procedure. Captured images seen in this note from are not a substitute for a comprehensive interpretation of the entire data set as reflected by the interpreting physician with regard to radiology, echocardiography, and other diagnostic images. This note may have been dictated using [employer] Practice Edition 2.6 and/or [employer] Voice Recognition Feature. The document was proofread, however unrecognized voice recognition antisqueak filler errors may be present. * Jazmín Carlos SLP - 11/15/2020 11:40 AM EDT Speech Language Pathology Facility/Department: [facility] Dysphagia Treatment Note NAME: Lavelle Rueda : 1945 Patient Diagnosis(es): Patient Active Problem List Diagnosis NSTEMI (non-ST elevated myocardial infarction) ([facility]) S/P CABG (coronary artery bypass graft) Allergies: Allergies Allergen Reactions Aspartame Beef-Derived Products Contrast [Iodides] Diazepam Other (See Comments) Nightmares. Would not want to take this again. Noted years ago, never charted, never mentioned Food severe stomach discomfort. Iodine Lactose Diarrhea Other Diarrhea additives, fillers, thickeners, colors etc Pork Allergy Saccharin Sucralose Tomato Soy Allergy Nausea And Vomiting Onset Date: 10/31/2020 Oxygen Level: Room Air Current Diet Level: Regular diet with thin liquids Compensatory Techniques -No straws Pain:Being managed by RN. S:Patient seen for dysphagia treatment seated upright in chair; RN reports that patient has been variably reporting nausea but tolerated breakfast well this AM and dinner well the previous date. Patient alert and agreeable to PO trials/treatment with SOFT SUGAR CUTTER. O: Assess compensatory strategy use; continued training of oropharyngeal strengthening A: Patient independently states strategy for avoiding straws when prompted by SOFT SUGAR CUTTER; patient accepts cup sips of thin liquids without clinical s/s of airway penetration/aspiration or any further concerns for oral/pharyngeal phase dysphagia across multiple swallows. With minimal cues/hints from SOFT SUGAR CUTTER, patient performs Zarina maneuver and Chin Tuck Against Resistance(CTAR) x 3 repetitions each successfully. Patient verbalizes understanding of completion for exercises. [x] Goal met [] Progressing as expected [] Progressing slower than expected [] Medical status inhibits participation [] Goals not addressed this session [] Goals revised this session [] Unable to show any progress towards functional goals [] Progress towards functional goal is gradual / fair P: Recommend patient resume regular diet with thin liquids, utilizing small sips/no straws. No further concerns for oropharyngeal dysphagia are clinically indicated at this time. SOFT SUGAR CUTTER will be signing off. Time In: 1045 Total session time: 15 minutes A KN95 mask and gloves were worn throughout this session. * Sally Fajardo APRN - AGENT CONTRACT CLERK - 11/15/2020 5:45 AM EDT Images from the original note were not included. Cardiothoracic Surgery Progress Note PATIENT NAME: Lavelle Rueda TODAY'S DATE: 11/15/2020 Surgery/Procedure: 11/04: CABGx4: (PERRY to mid LAD, Ao to Ramus w rsvg; Ao to OM1 to RCA PDA sequential w rsvg); L EVH Interval History: POD#11 VSS overnight. Patient complaining of nausea from anxiety. Ready for discharge when accepting facility available. Last recorded/verified vitals in [facility] BP 132/89 Pulse 77 Temp 98 F (36.7 C) (Oral) Resp 18 Ht 5' 6 (1.676 m) Wt 142 lb 12.8 oz(64.8 kg) SpO2 100% BMI 23.05 kg/m Recent Labs 11/12/20 2359 11/14/20 0242 11/15/20 0013 11/15/20 0145 WBC 12.8* 11.2* 11.0* -- HGB 12.6 13.3 12.5 -- PLT 285 208 168 -- NA 135 136 -- 134* K 4.0 3.5 -- 4.2 CREATININE 0.51* 0.50* -- 0.52 Physical Exam GENERAL APPEARANCE: Non-toxic appearing NEUROLOGICAL: A&Ox3, following commands, high anxiety RESPIRATORY: Breath sounds clear all lobes, RA CARDIOVASCULAR: Heart tones regular, rhythm regular, no murmurs, rubs or gallops ABDOMINAL: Soft, non-tender, non-distended, BSx4, +BM, +flatus GENITOURINARY: Voids SKIN: Incisions well-approximated, no redness, drainage or swelling Temporary Pacemaker Wires: no Post-operative Atrial Fibrillation: yes ASSESSMENT/PLAN: S/P CABGx4 Continue ASA, lipitor, lovenox No BB per EP pAF- amiodarone 4-6 weeks, EP following Post-op delirium-resolved, A&Ox4 Anxiety/ Depressive disorder-psych following, nortriptyline discontinued, PRN ativan while inpatient Discontinue daily imaging and labs CXR reviewed- PO lasix Dispo: [facility] Cardiac Core Medications: ASA, Statin and no BB due to bradycardia Post operative pulm management: Normal Post-Operative Course EF: 65% Blood Conservation: 11/04 platelets, 2UPRBC. DVT prophylaxis: TEDs, SCDs and Lovenox Treatment Team: Primary Care Provider: No primary care provider on file. Cardiology: Dr. Goldman Psychiatry: Dr. Goodwin Disclaimer INFORMED CONSENT:The nature and purpose of the proposed treatment or procedure have been discussed.The risks and benefits of the proposed treatment or procedures have been reviewed. Alternatives have been reviewed in addition to the risks and benefits of not receiving treatments or undergoing procedures. Pursuant to this discussion, the patient agrees to undergo the proposed treatment or procedure. Captured images seen in this note from are not a substitute for a comprehensive interpretation of the entire data set as reflected by the interpreting physician with regard to radiology, echocardiography, and other diagnostic images. This note may have been dictated using [employer] Edition 2.6 and/or [employer] Voice Recognition Feature. The document was proofread, however unrecognized voice recognition antisqueak filler errors may be present. * Nati Foley RD, LD - 11/14/2020 3:37 PM EDT Comprehensive Nutrition Assessment Type and Reason for Visit: Reassess Nutrition Recommendations/Plan: 1. Continue regular diet to promote po intake 2. Per MNT protocol, will modify ONS to PHRQL 1.4 BID (455kcal, 20g protein, 11oz) 3. Encouraged po/protein intake 4. RD will continue to monitor overall nutrition status and follow weekly Nutrition Assessment: Pt admitted form OSH with NSTEMI s/p LHC showing MV disease, transferred to [facility] for CTS evaluation and is now s/p CABGx4 11/04. Post op course c/b dysphagia and encephalopathy/delirium, both improved. Pt is ready for discharge pending facility acceptance. Noted N/V this afternoon. pt denies nausea currently, states she had chicken breast and water ~30 min ago and is feeling alittle better. RN very limited po intake since at least yesterday, states he assisted the pt with eating chicken breast today, describes low protein intake. RN states pt has not drank ONS as she has been receiving only chocolate flavor which she cannot have. RD clarified ONS order with diet office- OutTrippin 1.0 is not stocked in vanilla- will modify to PHRQL 1.4. RD encouraged po intake and protein intake Malnutrition Assessment: Malnutrition Status: At risk for malnutrition (Comment) Context: Acute Illness Findings of the 6 clinical characteristics of malnutrition: Energy Intake: 7 - 50% or less of estimated energy requirements for 5 or more days Weight Loss: No significant weight loss Body Fat Loss: No significant body fat loss Muscle Mass Loss: 1 - Mild muscle mass loss Fluid Accumulation: No significant fluid accumulation [employer] Incident Responder Strength: Not Performed Estimated Daily Nutrient Needs: Energy (kcal): 5774-3764; Weight Used for Energy Requirements: Admission (25-30kcal/kg) Protein (g): 80-87; Weight Used for Protein Requirements: Admission (1.2-1.3g/kg) Fluid (ml/day): Per MD; Method Used for Fluid Requirements: (N/A) Nutrition Related Findings: -I&O. No edema. Active bowel sounds. Aguilar=16. Labs and meds reviewed. BMP: Recent Labs 11/12/20 0024 11/12/20 2359 11/14/20 0242 NA 134* 135 136 K 3.9 4.0 3.5 CL 104 103 104 CO2 28 28 26 BUN 18 17 11 CREATININE 0.52 0.51* 0.50* GLUCOSE 96 103* 84 CALCIUM 8.4 8.7 9.2 Wounds: Surgical Incision Current Nutrition Therapies: ADULT DIET; Regular; No Drinking Straws Adult Oral Nutrition Supplement; Other Oral Supplement; Pam Rockstar Solos 1.0 Anthropometric Measures: Height: 5' 6 (167.6 cm) Current Body Weight: 146 lb 2.6 oz (66.3 kg) Admission Body Weight: 147 lb 0.8 oz (66.7 kg) (standing scale on 10/31) [place] Body Weight: 130 lbs; % [place] Body Weight 110.8 % BMI: 23.6 Adjusted Body Weight: ; No Adjustment BMI Categories: Normal Weight (BMI 18.5-24.9) Nutrition Diagnosis: Predicted inadequate energy intake related to (percieved food allergies/intolerances and plan for open heart surgery) as evidenced by (food 'allergies' limiting menu options; plan for CABG Wednesday) Increased nutrient needs related to increase demand for energy/nutrients as evidenced by wounds (surgical) Nutrition Interventions: Food and/or Nutrient Delivery: Continue Current Diet, Modify Oral Nutrition Supplement Nutrition Education/Counseling: Education not appropriate Coordination of Nutrition Care: Continue to monitor while inpatient Goals: Pt will consume >50% meals/ONS Nutrition Monitoring and Evaluation: Behavioral-Environmental Outcomes: Beliefs and Attitutes, Knowledge or Skill Food/Nutrient Intake Outcomes: Food and Nutrient Intake, Supplement Intake, Diet Advancement/Tolerance Physical Signs/Symptoms Outcomes: Biochemical Data, GI Status, Diarrhea, Meal Time Behavior, Nutrition Focused Physical Findings, Skin, Weight Discharge Planning: Too soon to determine Contact: pager [phone] * Rupa Tyalor SLP - 11/14/2020 1:50 PM EDT Speech Language Pathology Attempted to see patient to work on oropharyngeal strengthening exercises. Patient shivering uncontrollably upon therapist's entry. No fever reported from RN. Patient encouraged to order a lunch tray from RN but menu items are not in compliance with patient's food allergies. Educated patient on importance for nutrition to provide strength while recovering from cardiac procedure. Patient able to take sips of thin liquid via cup. Then began to experience nausea and vomiting. Noted a cough x 1 with sips of water. Overall patient status appears changed from last date. Spoke with the RN to monitor PO intake for evidence of dysphagia. Will attempt to work with patient on 11/15/2020 to ensure safety with a PO diet and continue oropharyngeal strengthening. Opal Baker, SOFT SUGAR CUTTER Student A KN95 mask and gloves were worn throughout this session. Rupa Talyor MS, CCC/SOFT SUGAR CUTTER * Sally Fajardo, LUCIANO - AGENT CONTRACT CLERK - 11/14/2020 6:14 AM EDT Images from the original note were not included. Cardiothoracic Surgery Progress Note PATIENT NAME: Lavelle Rueda TODAY'S DATE: 11/14/2020 Surgery/Procedure: 11/04: CABGx4: (PERRY to mid LAD, Ao to Ramus w rsvg; Ao to OM1 to RCA PDA sequential w rsvg); L EVH Interval History: POD#10 VSS overnight on RA. Patient alert and oriented x4. Patient medically ready for discharge when accepting facility available. Last recorded/verified vitals in Epic BP (!) 130/117 Pulse 85 Temp 97.7 F (36.5 C) (Oral) Resp 15 Ht 5' 6 (1.676 m) Wt 146 lb 3.2 oz (66.3 kg) SpO2 98% BMI 23.60 kg/m Recent Labs 11/12/20 0024 11/12/20 2359 11/14/20 0242 WBC 11.4* 12.8* 11.2* HGB 12.7 12.6 13.3 PLT 257 285 208 NA 134* 135 136 K 3.9 4.0 3.5 CREATININE 0.52 0.51* 0.50* Physical Exam GENERAL APPEARANCE: Non-toxic appearing NEUROLOGICAL: A&Ox3, following commands RESPIRATORY: Breath sounds clear all lobes, RA CARDIOVASCULAR: Heart tones regular, rhythm regular, no murmurs, rubs or gallops ABDOMINAL: Soft, non-tender, non-distended, BSx4 GENITOURINARY: Voids SKIN: Incisions well-approximated, no redness, drainage or swelling Temporary Pacemaker Wires: no Post-operative Atrial Fibrillation: yes ASSESSMENT/PLAN: S/P CABGx4 Continue ASA, lipitor, lovenox No BB per EP pAF- amiodarone 4-6 weeks, EP following Post-op delirium-resolved, A&Ox4 Anxiety/ Depressive disorder-psych following, nortriptyline discontinued [facility] Cardiac Core Medications: ASA, Statin and no BB due to bradycardia Post operative pulm management: Normal Post-Operative Course EF: 65% Blood Conservation: 11/04 platelets, 2UPRBC. DVT prophylaxis: TEDs, SCDs and Lovenox Treatment Team: Primary Care Provider: No primary care provider on file. Cardiology: Dr. Goldman Psychiatry: Dr. Goodwin Disclaimer INFORMED CONSENT:The nature and purpose of the proposed treatment or procedure have been discussed.The risks and benefits of the proposed treatment or procedures have been reviewed. Alternatives have been reviewed in addition to the risks and benefits of not receiving treatments or undergoing procedures. Pursuant to this discussion, the patient agrees to undergo the proposed treatment or procedure. Captured images seen in this note from are not a substitute for a comprehensive interpretation of the entire data set as reflected by the interpreting physician with regard to radiology, echocardiography, and other diagnostic images. This note may have been dictated using [employer] Practice Edition 2.6 and/or [employer] Voice Recognition Feature. The document was proofread, however unrecognized voice recognition antisqueak filler errors may be present. * Rupa Taylor SLP - 11/13/2020 3:08 PM EDT Facility/Department: [facility] Dysphagia Treatment Note NAME: Lavelle Rueda : 1945 Patient Diagnosis(es): Patient Active Problem List Diagnosis Disease NSTEMI (non-ST elevated myocardial infarction) (HCC) Stress hyperglycemia S/P CABG (coronary artery bypass graft) Encephalopathy acute Allergies: Allergies Allergen Reactions Aspartame Beef-Derived Products Contrast [Iodides] Diazepam Other (See Comments) Nightmares. Would not want to take this again. Noted years ago, never charted, never mentioned Food severe stomach discomfort. Iodine Lactose Diarrhea Other Diarrhea additives, fillers, thickeners, colors etc Pork Allergy Saccharin Sucralose Tomato Soy Allergy Nausea And Vomiting Onset Date: 10/31/2020 Oxygen Level: Room Air Current Diet Level: Regular diet with thin liquids Compensatory Techniques []Chin tuck []Small bolus []Alternate bites/ sips [x]No straws []Liquids by teaspoon only []Swallow x 2 with each bolus []Alternate lemon ice between each bolus [x]Position patient upright []Other Pain: Patient denies S: Up in the chair; Reports that she walked with PT today. Patient reports that her appetite is better this afternoon. Vocal quality is clear and strong. O: Oropharyngeal strengthening A: Patient recalls Zarina strengthening exercise from last session and is now able to achieve same x 90%. Patient completes a total of 5 Zarina maneuvers. Patient instructed with Chin Tuck against resistance exercise (CTAR). Patient is able to complete same independently for a total of 5. Overall posterior tongue tone and strength is clinically adequate. Laryngeal excursion is clinically complete. Patient taking thin liquids from a cup without any clinical evidence of airway penetration. Patient recalls and independently avoids straws. [] Goal met [x] Progressing as expected [] Progressing slower than expected [] Medical status inhibits participation [] Goals not addressed this session [] Goals revised this session [] Unable to show any progress towards functional goals [] Progress towards functional goal is gradual / fair P: Ok to continue on a regular diet. No straws. Will continue the dysphagia plan of care for oropharyngeal strengthening. Patient reports possible discharge to an ECF tomorrow. Time Out: 1450 Session Time: 15 minutes A KN95 mask and gloves were worn throughout this session. * Carmela Her PTA - 11/13/2020 2:49 PM EDT Physical Therapy Facility/Department: [facility] Daily Treatment Note NAME: Lavelle Rueda : 1945 Date of Service: 11/13/2020 Discharge Recommendations: IP Rehab PT Equipment Recommendations Equipment Needed: No Assessment Body structures, Functions, Activity limitations: Decreased functional mobility ;Decreased safe awareness;Decreased balance;Decreased coordination;Decreased ROM;Decreased endurance;Decreased strength;Increased pain;Decreased posture Assessment: Pt increased gait distance today. Limited by fatigue, endurance and generalized weakness. Min assist for transfers and gait with FWW. Cues for sternal precautions. Not safe to return homeat this time. Recommend IP rehab at discharge. Specific instructions for Next Treatment: dynamic standing balance, endurance, BLE strength Prognosis: Good Decision Making: Medium Complexity REQUIRES PT FOLLOW UP: Yes Activity Tolerance Activity Tolerance: Patient Tolerated treatment well;Patient limited by fatigue;Patient limited by endurance Patient Diagnosis(es): There were no encounter diagnoses. has a past medical history of CAD (coronary artery disease), Hyperlipidemia, Hypertension, Iron deficiency anemia, and Neuropathy. has a past surgical history that includes Cardiac catheterization (10/30/2020); Cardiac catheterization (2005); and Appendectomy (1952). Restrictions Restrictions/Precautions Restrictions/Precautions: Surgical Protocols, Fall Risk Required Braces or Orthoses?: No Upper Extremity Weight Bearing Restrictions Right Upper Extremity Weight Bearing: (sternal precautions) Left Upper Extremity Weight Bearing: (sternal precautions) Other: Sternal Precautions Position Activity Restriction Sternal Precautions: No Pushing, No Pulling, 10# Lifting Restrictions Sternal Precautions: YES Other position/activity restrictions: +chair alarm Subjective General Chart Reviewed: Yes Response To Previous Treatment: Patient with no complaints from previous session. Family / Caregiver Present: No Subjective Subjective: Pt resting in chair and agreeable to PT. Pt appears fatigued with eyes half closed but able to alert to tasks. General Comment Comments: donned pt's face mask prior to ambulating in hallway. Pain Screening Patient Currently in Pain: Denies Vital Signs Patient Currently in Pain: Denies Orientation Orientation Orientation Level: Oriented to place;Oriented to person Cognition Cognition Overall Cognitive Status: WFL Cognition Comment: occasional increased time to process tasks. recalls 0/3 sternal precautions. Recalls 3/3 by end of session. Objective Bed mobility Comment: NT- up in chair Transfers Sit to Stand: Minimal Assistance Stand to sit: Minimal Assistance Comment: sit<->stand from recliner x1, from low chair x1. Cues for sternal precautions and handing pillow to pt. Ambulation Ambulation?: Yes WB Status: sternal precautions More Ambulation?: Yes Ambulation 1 Surface: level tile Device: Rolling Walker Assistance: Minimal assistance Quality of Gait: slow stephanie, decreased step length bilaterally. Gait Deviations: Slow Stephanie;Decreased step length Distance: 15 ft in room Comments: very slow stephanie, cues for increased step length. Ambulation 2 Surface - 2: level tile Device 2: Rolling Walker Assistance 2: Minimal assistance Quality of Gait 2: slow stephanie, minor later LOB x1 to R, x1 to L. Pt unsteady with increasing gaitdistance. Fatigues quickly. deviates from path and requires assist to turn with FWW. Gait Deviations: Slow Stephanie;Decreased step length;Decreased step height;Deviated path Distance: 40 ft x2 Comments: pt rates RPE=14 after 40 ft Stairs/Curb Stairs?: No Balance Comments: static sitting edge of chair for P&C exercises, improved upright posture today compared to last session. Eyes open throughout. Static standing with hand-held assist x30 seconds, benefits from FWW at this time. Exercises Comments: P&C exercises #1-9 x8 reps each. Rests after 4 exercises with deep breathing. Fatigues quickly but improved from last session. IS= 750 mL x10 reps. Other exercises Other exercises?: No AM-PAC Score [facility] Inpatient Mobility Raw Score : 9 (11/12/20 1109) [facility] Inpatient T-Scale Score : 30.55 (11/12/20 1109) Mobility Inpatient CMS 0-100% Score: 81.38 (11/12/20 1109) Mobility Inpatient [facility] G-Code Modifier : CM (11/12/201108) Goals Short term goals Time Frame for Short term goals: 2 weeks Short term goal 1: bed mobility indep; progressing Short term goal 2: transfers indep.; progressing Short term goal 3: independent managing secretions; progressing Short term goal 4: independent performing P&C exercises and their progression; progressing Short term goal 5: independent following walking program and its progression, rating her own RPE and adjusting as she goes.; progressing Short term goal 6: follows sternal precautions all of the time.; progressing Patient Goals Patient goals : none stated Plan Plan Times per week: 6-7 Times per day: Daily Plan weeks: 2 Specific instructions for Next Treatment: dynamic standing balance, endurance, BLE strength Current Treatment Recommendations: Strengthening, Transfer Training, Endurance Training, Gait Training, Balance Training, Functional Mobility Training Plan Comment: cont. POC Safety Devices Type of devices: All fall risk precautions in place, Gait belt, Patient at risk for falls, Call light within reach, Left in chair, Chair alarm in place Restraints Initially in place: No Therapy Time Individual Concurrent Group Co-treatment Time In 1407 Time Out 1436 Minutes 29 Timed Code Treatment Minutes: (gait, TP) Carmela Her, TYPO MACHINE OPERATOR * Chadd Harden, DO - 11/13/2020 11:08 AM EDT Lavelle Rueda is a 75 y.o.female CC: Confusion HPI Lavelle states confusion has cleared up. She is oriented x4 today. She reports depressed mood due to her current medical condition but maintains a good future outlook. She maintains good motivation to treatment and is optimistic for recovery. She continues to have high level of chronic anxiety butis managing it well. No SI or HI. No hallucinations or delusions. She is tolerating tapering off nortriptyline. Past Medical History: Diagnosis Date CAD (coronary artery disease) Hyperlipidemia Hypertension Iron deficiency anemia Neuropathy Current Facility-Administered Medications Medication Dose Route Frequency Provider Last Rate Last Admin miconazole (MICOTIN) 2 % powder Topical BID Stephen Poole MD Given at 11/13/20 0826 calcium carbonate (TUMS) chewable tablet 500 mg 500 mg Oral TID PRN LUCIANO Patino CNP ibuprofen (ADVIL;MOTRIN) tablet 800 mg 800 mg Oral Q8H PRN LUCIANO Parsons CNP ipratropium-albuterol (DUONEB) nebulizer solution 1 ampule 1 ampule Inhalation Q4H PRN Chase Sheffield MD amiodarone (CORDARONE) tablet 200 mg 200 mg Oral BID Rossy Garland MD 200 mg at 11/13/20 0825 diphenhydrAMINE (BENADRYL) injection 50 mg 50 mg Intravenous Q6H PRN Chano Arndt MD enoxaparin (LOVENOX) injection 40 mg 40 mg Subcutaneous Daily LUCIANO Parsons CNP 40 mg at 11/13/20 0825 [Held by provider] metoprolol (LOPRESSOR) injection 5 mg 5 mg Intravenous Q5 Min PRN Bebeto Washington APRN - AGENT CONTRACT CLERK 5 mg at 11/09/20 0543 lidocaine 4 % external patch 1 patch 1 patch Transdermal Daily Eligio Stockton MD 1 patch at 11/13/20 0825 0.9 % sodium chloride infusion Intravenous PRN Carmelo Brown ADJ[employer]CT INSTRUCTOR IN [employer] - AGENT CONTRACT CLERK acetaminophen (TYLENOL) suppository 650 mg 650 mg Rectal Q4H PRN Carmelo Brown [employer] - AGENT CONTRACT CLERK aspirin EC tablet 325 mg 325 mg Oral Daily Carmelo Brown, [employer] - AGENT CONTRACT CLERK 325 mg at 11/13/20 0836 [Held by provider] metoprolol (LOPRESSOR) injection 5 mg 5 mg Intravenous Q6H PRN Carmelo Brown [employer] - AGENT CONTRACT CLERK 5 mg at 11/07/20 1831 LORazepam (ATIVAN) injection 0.5 mg 0.5 mg Intravenous Q12H Carmelo Brown [employer] IN[employer] - AGENT CONTRACT CLERK 0.5 mg at 11/12/20 2130 pantoprazole (PROTONIX) tablet 40 mg 40 mg Oral QAM AC Carmelo Brown, [employer]CT IN[employer] - AGENT CONTRACT CLERK 40 mg at 11/13/20 0623 LORazepam (ATIVAN) tablet 0.5 mg 0.5 mg Oral BID Carmelo Brown, [employer] IN[employer] - AGENT CONTRACT CLERK 0.5 mg at 11/13/20 0826 [Held by provider] QUEtiapine (SEROQUEL) tablet 12.5 mg 12.5 mg Oral BID PRN Carmelo Brown, [employer]CT IN[employer]CTOR IN [employer] - AGENT CONTRACT CLERK 12.5 mg at 11/11/20 0501 [Held by provider] amLODIPine (NORVASC) tablet 5 mg 5 mg Oral Daily Carmelo Brown [employer] IN[employer] - AGENT CONTRACT CLERK 5 mg at 11/10/20 0855 sodium chloride flush 0.9 % injection 10 mL 10 mL Intravenous PRN Carmelo Brown, ADJ[employer]CT IN[employer]CTOR IN [employer] - AGENT CONTRACT CLERK ondansetron (ZOFRAN) injection 4 mg 4 mg Intravenous Q8H PRN Carmelo Brown [employer] IN[employer] - AGENT CONTRACT CLERK 4 mg at 11/13/20 0319 acetaminophen (TYLENOL) tablet 1,000 mg 1,000 mg Oral Q8H Carmelo Brown, [employer]CT IN[employer]CTOR [employer] - AGENT CONTRACT CLERK 1,000 mg at 11/13/20 0624 potassium chloride (KLOR-CON M) extended release tablet 20 mEq 20 mEq Oral PRN Carmelo Brown, [employer] IN[employer] - AGENT CONTRACT CLERK 40 mEq at 11/10/20 2355 polyethylene glycol (GLYCOLAX) packet 17 g 17 g Oral Daily Carmelo Brown [employer] IN[employer] - AGENT CONTRACT CLERK 17 g at 11/10/20 0855 sennosides-docusate sodium (SENOKOT-S) 8.6-50 MG tablet 2 tablet 2 tablet Oral Nightly Carmelo Brown [employer] IN[employer] - AGENT CONTRACT CLERK 2 tablet at 11/09/202023 potassium chloride 20 mEq/50 mL IVPB (Central Line) 20 mEq Intravenous PRN Carmelo Tc Brown [employer] INSTRUCTOR IN [employer] - AGENT CONTRACT CLERK magnesium sulfate 2000 mg in 50 mL IVPB premix 2,000 mg Intravenous PRN Carmelo Tc Brown, ADJUNCT INSTRUCTOR IN E[employer]OMICS - CNPStopped at 11/10/20 2307 calcium gluconate 2,000 mg in dextrose 5 % 100 mL IVPB 2,000 mg Intravenous PRN Carmelo Tc Brown, [employer] IN[employer]CTOR [employer] - AGENT CONTRACT CLERK Stopped at 11/05/20 0611 glucose (GLUTOSE) 40 % oral gel 15 g 15 g Oral PRN Carmelo Tc Stephanie [employer] IN[employer]CTOR IN [employer] - AGENT CONTRACT CLERK dextrose 50 % IV solution 12.5 g Intravenous PRN Carmelo Tc Stephanie [employer] IN[employer]CTOR IN [employer] - AGENT CONTRACT CLERK glucagon (rDNA) injection 1 mg 1 mg Intramuscular PRN Carmelo Tc Stephanie [employer]CT IN[employer]CTOR IN [employer] - AGENT CONTRACT CLERK dextrose 5 % solution 100 mL/hr Intravenous PRN Carmelo Tc Stephanie [employer]CT IN[employer]CTOR IN [employer] - AGENT CONTRACT CLERK sodium chloride flush 0.9 % injection 5-40 mL 5-40 mL Intravenous 2 times per day Nolan Boss MD 5 mL at 11/13/20 0828 polyethylene glycol (GLYCOLAX) packet 17 g 17 g Oral Daily PRN Nolan Boss MD atorvastatin (LIPITOR) tablet 80 mg 80 mg Oral Nightly Nolan Boss MD 80 mg at 11/12/202129 melatonin tablet 3 mg 3 mg Oral Nightly Mukesh Ricci MD 3 mg at 11/12/202129 Allergies Allergen Reactions Aspartame Beef-Derived Products Contrast [Iodides] Diazepam Other (See Comments) Nightmares. Would not want to take this again. Noted years ago, never charted, never mentioned Food severe stomach discomfort. Iodine Lactose Diarrhea Other Diarrhea additives, fillers, thickeners, colors etc Pork Allergy Saccharin Sucralose Tomato Soy Allergy Nausea And Vomiting Past Surgical History: Procedure Laterality Date APPENDECTOMY 1952 CARDIAC CATHETERIZATION 10/30/2020 CARDIAC CATHETERIZATION 2005 1 stent to LAD History reviewed. No pertinent family history. Social History Tobacco Use Smoking status: Never Smoker Smokeless tobacco: Never Used Vaping Use Vaping Use: Never used Substance Use Topics Alcohol use: Not Currently Drug use: Never Vitals: 11/13/20 0400 11/13/20 0442 11/13/20 0600 11/13/20 0818 BP: 83/62 Pulse: 76 Resp: 16 15 Temp: 97.9 F (36.6 C) 98.5 F (36.9 C) TempSrc: Temporal Temporal SpO2: 92% Weight: 146 lb 3.2 oz (66.3 kg) Height: Malnutrition Assessment Malnutrition Status: At risk for malnutrition (Comment) (Pt currently w/poor intakes, lethargic, noted confusion.) (11/11/20 1320) Review of Systems Constitutional: Positive for fatigue. HENT: Negative. Negative for congestion and trouble swallowing. Eyes: Negative. Negative for visual disturbance. Respiratory: Negative for shortness of breath, cough and wheezing. Cardiovascular: Positive for chest pain. Negative for palpitations. Gastrointestinal: Negative for abdominal pain, constipation, diarrhea and vomiting. Endocrine: Negative. Genitourinary: Negative. Musculoskeletal: Negative for back pain, joint swelling and myalgias. Skin: Negative. Neurological: Negative for dizziness, tremors, seizures, weakness and headaches. Hematological: Negative. Psychiatric/Behavioral: Negative for confusion, agitation, behavioral problems, hallucinations, sleep disturbance and suicidal ideas. The patient is nervous/anxious. The patient is not hyperactive. Physical Exam Level of consciousness: Awake Appearance: Appears stated age wearing hospital attire. Seen sitting in chair in no distress. Fair grooming and fair hygiene. No physical abnormalities. Behavior/Motor: Fair eye contact. No psychomotor retardation or involuntary movements. Not responding to internal stimuli. Attitude toward examiner: cooperative and attentive Speech: Fluent and with normal rate, volume, and tone Mood: anxious Affect: mood congruent Thought processes: Logical and linear Thought content: No preoccupations, delusions, or obsessions. No suicidal or homicidal ideation. Cognition: oriented to person, place, time, and situation Memory intact short and termite control representative Fund of knowledge: average Abstract thinking: impaired Insight: fair Judgment: Variable due to delerium Assessment Delirium, mixed subtype, multiple etiologies Depressive disorder Anxiety disorder QT prolongation Plan Weaned off nortriptyline, tolerating this well. Continue ativan Continue to treat underlying medical conditions causing delirium Associated attestation - Ryan Goodwin MD - 11/13/2020 5:05 PM EDT Attending Supervising Physician s Attestation Statement The patient met the criteria for indirect supervision. I discussed the findings and plans with the resident physician and agree as documented in his note . * Ama Whipple APRN - AGENT CONTRACT CLERK - 11/13/2020 6:01 AM EDT Images from the original note were not included. Cardiothoracic Surgery Progress Note PATIENT NAME: Lavelle Rueda TODAY'S DATE: 11/13/2020 Surgery/Procedure: 11/04: CABGx4: PERRY to mid LAD, Ao to Ramus w rsvg; Ao to OM1 to RCA PDA sequential w rsvg; left legevH Interval History: POD #9: VSS overnight, on RA. Multiple BMs overnight. Mentation improved overnight. Last recorded/verified vitals in [facility] BP (!) 144/71 Pulse 71 Temp 98 F (36.7 C) (Temporal) Resp 16 Ht 5' 6 (1.676 m) Wt 144 lb10 oz (65.6 kg) SpO2 92% BMI 23.34 kg/m Recent Labs 11/11/20 0448 11/12/20 0024 11/12/20 2359 WBC 14.4* 11.4* 12.8* HGB 14.1 12.7 12.6 PLT 282 257 285 NA 135 134* 135 K 4.2 3.9 4.0 CREATININE 0.50* 0.52 0.51* Physical Exam: General: alert and oriented to person, place and time Cardiac: Heart regular rate and rhythm Pulmonary: clear to auscultation without wheezes or rales Abdomen: soft, nontender, no guarding, no rebound, no masses Skin: Skin color, texture, turgor normal. No rashes or lesions. Incision: [place] Neuro: No weaknesses noted, sensation grossly intact. ASSESSMENT/PLAN: CAD s/p CABGx4 HTN HLD Acute encephalopathy/delirium: multifactorial-medication withdrawal; anaesthesia, surgery POAF with Conversion pause EP consulted- hold BB, recommend oral amio x-4-6 weeks postop Imodium x1 for diarrhea Disposition: Pending Precert for SNF Cardiac Core Medications: ASA, Statin and hold BB for pauses Post operative pulm management: Normal Post-Operative Course EF: 65%-11/01/20 Blood Conservation: 11/04: plt + 2 units PRBC. DVT prophylaxis: TEDs, SCDs and Lovenox Treatment Team: Primary Care Provider: No primary care provider on file. Cardiology: Dr. Goldman CCM: Dr. Serrano Endocrinology: Dr. Mcdonnell Psychiatry: Dr. Goodwin Disclaimer INFORMED CONSENT:The nature and purpose of the proposed treatment or procedure have been discussed.The risks and benefits of the proposed treatment or procedures have been reviewed. Alternatives have been reviewed in addition to the risks and benefits of not receiving treatments or undergoing procedures. Pursuant to this discussion, the patient agrees to undergo the proposed treatment or procedure. Captured images seen in this note from are not a substitute for a comprehensive interpretation of the entire data set as reflected by the interpreting physician with regard to radiology, echocardiography, and other diagnostic images. This note may have been dictated using [employer] Edition 2.6 and/or [employer] Voice Recognition Feature. The document was proofread, however unrecognized voice recognition antisqueak filler errors may be present. * Chase Sheffield MD - 11/12/2020 4:47 PM EDT Critical Care Progress Note 11/12/2020 4:47 PM Subjective: Admit Date: 10/31/2020 PCP: No primary care provider on file. No chief complaint on file. Hospitalization Overview: 75-year-old female with past medical history significant for hypertension, hyperlipidemia, depression, coronary artery disease status post PCI and drug-eluting stent in 2005, arthritis presented to [facility] on October 31 with chest pain. She was found to have circumflex and ramus disease during heart cath. Patient underwent four-vessel CABG on November 04. ICU was consulted for postoperative ventilator management. Patient was extubated on November 04. Had issues with agitation and delirium requiring Precedex. Patient was evaluated by psychiatry. She was weaned off Precedex and has demonstrated steady improvement in mental status. Interval History: Remains in normal sinus rhythm. Restarted amiodarone and beta- blockade overnight.Mental status is clear this morning. Patient out of bed and breathing comfortably on room air. Medications: Scheduled Meds: metoprolol tartrate 12.5 mg Oral BID amiodarone 200 mg Oral BID enoxaparin 40 mg Subcutaneous Daily lidocaine 1 patch Transdermal Daily aspirin 325 mg Oral Daily LORazepam 0.5 mg Intravenous Q12H pantoprazole 40 mg Oral QAM AC LORazepam 0.5 mg Oral BID [Held by provider] amLODIPine 5 mg Oral Daily acetaminophen 1,000 mg Oral Q8H polyethylene glycol 17 g Oral Daily sennosides-docusate sodium 2 tablet Oral Nightly sodium chloride flush 5-40 mL Intravenous 2 times per day atorvastatin 80 mg Oral Nightly melatonin 3 mg Oral Nightly Continuous Infusions: sodium chloride dextrose Objective: Vitals: Temp (24hrs), Av F (36.7 C), Min:97.6 F (36.4 C), Max:98.5 F (36.9 C) BP (!) 125/50 Pulse 77 Temp 97.6 F (36.4 C) (Oral) Resp 18 Ht 5' 6 (1.676 m) Wt 144 lb 10 oz (65.6 kg) SpO2 95% BMI 23.34 kg/m I/O:24HR INTAKE/OUTPUT: Intake/Output Summary (Last 24 hours) at 11/12/2020 1647 Last data filed at 11/12/2020 1112 Gross per 24 hour Intake 460 ml Output Net 460 ml 11/11 0701 - 11/12 0700 In: 260 [P.O.:240; I.V.:20] Out: - CVP: CVP (Mean): 8 mmHg Ventilator Settings: Vent Mode: AC/VC+ Rate Set: 14 bmp Vt Ordered: 365 mL Pressure Support: 0 cmH20 PEEP/CPAP: 8 FiO2 : 30 % Physical Exam General Appearance: []WDWN []Obese []Cachectic []Thin []ill Skin: Temperature [x]Warm []Cool / Rash []Yes [x]No / Tattoo(s) []Yes []No Heent: Pupils round and react [x]Yes []No Sclera []Icteric [x]Non-Icteric Conjunctiva []Injected [x]Non-Injected / Pinnae []Normal []Other/ Dentitian [][place] Teeth []No [place] Teeth []Dentures Oral Mucosa [][place] [x]Moist []Dry/ Oral ETT []Present [x]Absent Neck: Trachea midline [x]Yes []No/ Thyromegaly []Yes [x]No/ Crepitus []Present [x]Absent /Jvd []Present [x]Absent / []supple Lungs: [x]Clear []Crackles []Wheezes []Rhonchi / Respiratory effort []Labored [x]Non-Labored Heart: [x]RRR []Irregularly Irregular []murmur present []murmur absent/ Peripheral Edema [x]Absent []Present Abdomen: [x]Soft Bowel Sounds [x]Present []Absent []Diminished []Hyperactive []Hypoactive []Tender [x]Non-Tender []Distended [x]Non-distended / Hernia []Present []Absent []Unable to assess due to body habitus/ Organomegaly []Absent []Present []Unable to assess due to body habitus/ []Scar Extremities: Cyanosis []Present [x]Absent/ [place] ([x]RUE [x]RLE [x]LUE [x]LLE) Neurologic: [place] []Yes []No Corneal reflexes []Present []Absent / Plantar reflexes []Up []Down []Absent / Withdraws to tactile []Yes []No/ Follows Commands [x]Yes []No []Unresponsive to verbal Psych: Alert [x]yes []no Oriented []x0 []x1 []x2 [x]x3 / Affect [x]Normal []Flat []Aggitated [x]Calm []Sedated []NAD []anxious BMP: Recent Labs 11/10/20 1510 11/10/20 2315 11/10/20 2330 11/11/20 0448 11/12/20 0024 NA 134* 134* -- 135 134* K 3.5 3.6 -- 4.2 3.9 CL 104 102 -- 102 104 CO2 25 26 -- 27 28 BUN 15 13 -- 14 18 CREATININE 0.46* 0.43* -- 0.50* 0.52 GLUCOSE 116* 118* -- 99 96 CALCIUM 8.6 8.7 -- 9.6 8.4 IONCA -- -- 4.10* -- -- MG 1.9 2.9* -- -- -- PHOS -- 3.2 -- -- -- Ionized Calcium: Lab Results Component Value Date IONCA 4.10 11/10/2020 IONCA 4.50 11/07/2020 CBC: Recent Labs 11/11/208 11/12/20 0024 WBC 14.4* 11.4* HGB 14.1 12.7 PLT 282 257 Assessment and Plan: Principal Problem: S/P CABG (coronary artery bypass graft) Active Problems: NSTEMI (non-ST elevated myocardial infarction) ([facility]) Disease Stress hyperglycemia Encephalopathy acute Resolved Problems: * No resolved hospital problems. * Neurological: Awake, alert and oriented. Promote good sleep hygiene and avoid neuro depressant medications. Cardiovascular: Remains in normal sinus rhythm. Metoprolol and amiodarone restarted without issues Pulmonary: Breathing comfortably on room air. Patient pulls 800 cc on incentive spirometer. Continue pulmonary hygiene measures. FEN/GI: Tolerating diet. No electrolyte disturbance. Adequate renal function and urine output. : Voiding spontaneously Hematologic: Hemoglobin and platelet counts are stable within normal limits. No evidence of acute bleeding. Endocrine: Glycemic control per endocrinology. ID: No current antimicrobial therapy. Patient afebrile. Prophylaxis: Stress ulcer: Protonix VTE: Lovenox Bowel: Senna and GlycoLax Invasive Lines: Peripheral IV x2 Dispo planning per primary. Critical care will sign off. Full Code Patient seen hours Excluding procedures, the total critical care time caring for this patient with life threatening, unstable organ failure, including direct patient contact, review of medical record, management of life support systems, review of data including imaging and labs, discussions with other team members, patient's family and physicians at least 35 minutes so far today. * Dyllan Blair MD - 11/12/2020 4:21 PM EDT CARDIOLOGY PROGRESS NOTE Chart and interval events reviewed. Reason for Visit post op afib SUBJECTIVE: Lavelle Rueda states no events overnight, still with constant CP since CABG, no SOB SCHEDULED MEDICATIONS: metoprolol tartrate 12.5 mg Oral BID amiodarone 200 mg Oral BID enoxaparin 40 mg Subcutaneous Daily lidocaine 1 patch Transdermal Daily aspirin 325 mg Oral Daily LORazepam 0.5 mg Intravenous Q12H pantoprazole 40 mg Oral QAM AC LORazepam 0.5 mg Oral BID [Held by provider] amLODIPine 5 mg Oral Daily acetaminophen 1,000 mg Oral Q8H polyethylene glycol 17 g Oral Daily sennosides-docusate sodium 2 tablet Oral Nightly sodium chloride flush 5-40 mL Intravenous 2 times per day atorvastatin 80 mg Oral Nightly melatonin 3 mg Oral Nightly Principal Problem: S/P CABG (coronary artery bypass graft) Active Problems: NSTEMI (non-ST elevated myocardial infarction) (HCC) Disease Stress hyperglycemia Encephalopathy acute Resolved Problems: * No resolved hospital problems. * Review of Systems: Review of Systems Constitutional: Positive for appetite change, fatigue and unexpected weight change. Negative for activity change. HENT: Negative for ear pain, hearing loss, nosebleeds and trouble swallowing. Eyes: Negative for photophobia and visual disturbance. Respiratory: Negative for cough, shortness of breath and wheezing. Cardiovascular: Positive for chest pain. Negative for palpitations and leg swelling. Gastrointestinal: Negative for abdominal pain, blood in stool, diarrhea, nausea and vomiting. Endocrine: Negative for heat intolerance and polyuria. Genitourinary: Negative for difficulty urinating and hematuria. Musculoskeletal: Negative for back pain, gait problem and joint swelling. Skin: Negative for rash and wound. Allergic/Immunologic: Negative for environmental allergies. Neurological: Negative for dizziness, syncope, speech difficulty, weakness, light-headedness, numbness and headaches. Hematological: Does not bruise/bleed easily. Psychiatric/Behavioral: Negative for sleep disturbance. The patient is not nervous/anxious. VITAL SIGNS: Vitals: 11/12/20 0400 11/12/20 0802 11/12/20 1201 11/12/20 1600 BP: 137/79 135/60 134/74 (!) 125/50 Pulse: 78 75 74 77 Resp: 18 18 18 18 Temp: 98.5 F (36.9 C) 97.6 F (36.4 C) 97.6 F (36.4 C) TempSrc: Oral Oral Oral SpO2: 95% 95% Weight: 144 lb 10 oz (65.6 kg) Height: Intake/Output Summary (Last 24 hours) at 11/12/2020 1621 Last data filed at 11/12/2020 1112 Gross per 24 hour Intake 460 ml Output Net 460 ml Patient Vitals for the past 96 hrs (Last 3 readings): Weight 11/12/20 0400 144 lb 10 oz (65.6 kg) 11/11/20 0501 144 lb 10 oz (65.6 kg) 11/10/20 0500 144 lb 6.4 oz (65.5 kg) Physical Exam: Physical Exam Constitutional: General: She is not in acute distress. Appearance: She is well-developed and normal weight. HENT: Head: Normocephalic and atraumatic. Eyes: General: No scleral icterus. Conjunctiva/sclera: Conjunctivae normal. Neck: Thyroid: No thyromegaly. Vascular: No carotid bruit or JVD. Cardiovascular: Rate and Rhythm: Normal rate and regular rhythm. No extrasystoles are present. Heart sounds: Normal heart sounds, S1 normal and S2 normal. Heart sounds not distant. No murmur heard. No friction rub. No gallop. Pulmonary: Effort: Pulmonary effort is normal. No respiratory distress. Breath sounds: Normal breath sounds. No wheezing or rales. Musculoskeletal: General: No deformity. Normal range of motion. Lymphadenopathy: Cervical: No cervical adenopathy. Skin: General: Skin is warm and dry. Neurological: General: No focal deficit present. Mental Status: She is alert and oriented to person, place, and time. Psychiatric: Mood and Affect: Mood normal. Data: Scheduled Meds: Reviewed Continuous Infusions: sodium chloride dextrose CBC: Recent Labs 11/11/20 0448 11/12/20 0024 WBC 14.4* 11.4* HGB 14.1 12.7 HCT 43.1 37.6 PLT 282 257 BMP: Recent Labs 11/11/20 0448 11/12/20 0024 NA 135 134* K 4.2 3.9 CL 102 104 CO2 27 28 BUN 14 18 CREATININE 0.50* 0.52 INR:No results for input(s): INR in the last 72 hours. No results for input(s): BNP in the last 72 hours. TSH: Lab Results Component Value Date TSH 0.425 (L) 10/31/2020 Cardiac Injury Profile: Recent Labs 11/10/20 2315 11/11/20447 TROPONINI 0.242* 0.264* Lipid Profile: Lab Results Component Value Date TRIG 74 10/31/2020 HDL 47 10/31/2020 CHOL 176 10/31/2020 EKG: See Report Telemetry Reviewed: sr Echo: See Report IMPRESSIONS/RECOMMENDATIONS: 1. Post op afib, single episode, no recurrence and tolerating oral amio, would continue 4-6 weeks then stop. No recurrent bradycardia, continue to hold BB Electronicallysigned by Dyllan Blair MD on 11/12/2020 at 4:21 PM * Carmela Her, TYPO MACHINE OPERATOR - 11/12/2020 11:07 AM EDT Physical Therapy Facility/Department: [facility] Daily Treatment Note NAME: Lavelle Rueda : 1945 Date of Service: 11/12/2020 Discharge Recommendations: IP Rehab PT Equipment Recommendations Equipment Needed: No (FWW at facility) Assessment Body structures, Functions, Activity limitations: Decreased functional mobility ;Decreased safe awareness;Decreased balance;Decreased coordination;Decreased ROM;Decreased endurance;Decreased strength;Increased pain;Decreased posture Assessment: Pt progressing towards goals. Limited by fatigue and generalized weakness. Verbal cues for sternal precautions and use of chest pillow. Min assist overall. Recommend IP rehab at discharge. Specific instructions for Next Treatment: increase gait distance Prognosis: Good Decision Making: Medium Complexity REQUIRES PT FOLLOW UP: Yes Activity Tolerance Activity Tolerance: Patient Tolerated treatment well;Patient limited by fatigue;Patient limited by endurance Activity Tolerance: very limited by fatigue. Patient Diagnosis(es): There were no encounter diagnoses. has a past medical history of CAD (coronary artery disease), Hyperlipidemia, Hypertension, Iron deficiency anemia, and Neuropathy. has a past surgical history that includes Cardiac catheterization (10/30/2020); Cardiac catheterization (2005); and Appendectomy (1952). Restrictions Restrictions/Precautions Restrictions/Precautions: Surgical Protocols, Fall Risk Required Braces or Orthoses?: No Upper Extremity Weight Bearing Restrictions Right Upper Extremity Weight Bearing: (sternal precautions) Left Upper Extremity Weight Bearing: (sternal precautions) Other: Sternal Precautions Position Activity Restriction Sternal Precautions: No Pushing, No Pulling, 10# Lifting Restrictions Sternal Precautions: YES Other position/activity restrictions: tele, +bed/chair alarm Subjective General Chart Reviewed: Yes Response To Previous Treatment: Patient with no complaints from previous session. Family / Caregiver Present: No Subjective Subjective: Pt sleeping in bed, easily awakens and agreeable to PT. Pt states she is exhausted and was in the chair all morning. General Comment Comments: pt is being seen for precert. Pain Screening Patient Currently in Pain: Yes Pain Assessment Pain Assessment: 0-10 Pain Level: 2 Pain Type: Acute pain Pain Location: Abdomen Pain Orientation: Mid Pain Descriptors: Discomfort;Tender Non-Pharmaceutical Pain Intervention(s): Ambulation/Increased Activity;Repositioned Response to Pain Intervention: Patient Satisfied Vital Signs Patient Currently in Pain: Yes Orientation Orientation Orientation Level: Oriented to person;Oriented to place Cognition Cognition Overall Cognitive Status: WFL Cognition Comment: Cues for sternal precautions. Objective Bed mobility Rolling to Right: Minimal assistance Supine to Sit: Minimal assistance Sit to Supine: Minimal assistance Scooting: Stand by assistance Comment: cues for log roll sequencing. assist to elevate trunk. +bed alarm Transfers Sit to Stand: Minimal Assistance Stand to sit: Minimal Assistance Comment: Reviewed sternal precautions with pt, pt recalls 1/3. sit<->stand x2 reps from EOB. Cues for maintaining sternal precautions and use of chest pillow. Ambulation Ambulation?: Yes WB Status: sternal precautions More Ambulation?: No Ambulation 1 Surface: level tile Device: Rolling Walker Other Apparatus: (room air) Assistance: Minimal assistance Quality of Gait: slow stephanie, decreased step length, deviated path. Gait Deviations: Slow Stephanie;Decreased step length;Decreased step height Distance: 40 ft Comments: requires FWW assist to turn, very slow stephanie, pt bumps into objects in room with FWW attempting wide turns. Stairs/Curb Stairs?: No Balance Comments: static sitting EOB with CGA to stand by assist. Pt with eyes closed, slightly forward flexed, cues for keeping eyes open and upright posture. Seated P&C exercises with no LOB. Static standing with FWW, CGA. Standing marches x5 BLE AROM, CGA with FWW. Exercises Comments: P&C exercises #1-9, x8 reps each. AROM. cues for correct techniques. Increased time to complete, pt fatigues quickly. I.S=750 mL x6 reps. Reviewed sternal precautions x2. Other exercises Other exercises?: No AM-PAC Score [facility] Inpatient Mobility Raw Score : 9 (11/12/201108) AM-PAC Inpatient T-Scale Score : 30.55 (11/12/201108) Mobility Inpatient CMS 0-100% Score: 81.38 (11/12/201108) Mobility Inpatient CMS G-Code Modifier : CM (11/12/201108) Goals Short term goals Time Frame for Short term goals: 2 weeks Short term goal 1: bed mobility indep; progressing Short term goal 2: transfers indep.; progressing Short term goal 3: independent managing secretions; progressing Short term goal 4: independent performing P&C exercises and their progression; progressing Short term goal 5: independent following walking program and its progression, rating her own RPE and adjusting as she goes.; progressing Short term goal 6: follows sternal precautions all of the time.; progressing Patient Goals Patient goals : none stated Plan Plan Times per week: 6-7 Times per day: Daily Plan weeks: 2 Specific instructions for Next Treatment: increase gait distance Current Treatment Recommendations: Strengthening, Transfer Training, Endurance Training, Gait Training, Balance Training, Functional Mobility Training Plan Comment: cont. POC Safety Devices Type of devices: All fall risk precautions in place, Gait belt, Left in bed, Call light within reach, Patient at risk for falls, Bed alarm in place Restraints Initially in place: No Therapy Time Individual Concurrent Group Co-treatment Time In 1027 Time Out 1050 Minutes 23 Timed Code Treatment Minutes: (TP, gait) Carmela Her PTA * Jeannie Rodriguez, OT - 11/12/2020 10:37 AM EDT Occupational Therapy Facility/Department: [facility] Daily Treatment Note NAME: Lavelle Rueda : 1945 Date of Service: 11/12/2020 Discharge Recommendations: (Facility-based) Assessment Performance deficits / Impairments: Decreased functional mobility ;Decreased ADL status;Decreased strength;Decreased safe awareness;Decreased cognition;Decreased endurance;Decreased balance;Decreasedhigh-level IADLs Assessment: Fair tolerance during OT session, no goals met. Continues to be limited by pain, fatigue, and cognition hindering safety and indep with daily routine. Needs frequent cues to maintain sternal precautions. Assist with all standing ADL tasks. Recommending facility-based at disch to achievePLOF. Prognosis: Good Decision Making: Medium Complexity OT Education: Plan of Care;OT Role;Precautions;Transfer Training REQUIRES OT FOLLOW UP: Yes Activity Tolerance Activity Tolerance: Patient Tolerated treatment well;Patient limited by fatigue Safety Devices Safety Devices in place: Yes Type of devices: Call light within reach;Patient at risk for falls;Nurse notified;Left in bed;Bed alarm in place;Gait belt Restraints Initially in place: No Patient Diagnosis(es): There were no encounter diagnoses. has a past medical history of CAD (coronary artery disease), Hyperlipidemia, Hypertension, Iron deficiency anemia, and Neuropathy. has a past surgical history that includes Cardiac catheterization (10/30/2020); Cardiac catheterization (2005); and Appendectomy (1952). Restrictions Restrictions/Precautions Restrictions/Precautions: Surgical Protocols, Fall Risk ((+) alarms; tele) Required Braces or Orthoses?: No Position Activity Restriction Sternal Precautions: No Pushing, No Pulling, 10# Lifting Restrictions Subjective General Chart Reviewed: Yes Patient assessed for rehabilitation services?: Yes Family / Caregiver Present: No Diagnosis: CABG x 4 General Comment Comments: Pt seen sitting reclined in bedside chair. Agreeable to OT. RN approving session. Vital Signs Patient Currently in Pain: Yes (/ acute surgical pain) Objective ADL Grooming: Minimal assistance (Encouraged standing hygiene for improved endurance and dynamic balance. Mostly close SBA with occasional min assist secondary to postural swaying.) Toileting: Maximum assistance Additional Comments: Needs frequent cues to maintain sternal precautions. Occasional cues for sequencing basic ADLs. Functional Mobility Functional - Mobility Device: Rolling Walker Activity: To/from bathroom Assist Level: Minimal assistance Toilet Transfers Toilet - Technique: Ambulating Equipment Used: Grab bars Toilet Transfer: Moderate assistance Bed mobility Sit to Supine: Minimal assistance (LE management) Scooting: Stand by assistance Transfers Sit to stand: Moderate assistance Stand to sit: Minimal assistance Transfer Comments: Frequent cues to maintain sternal precautions. Cognition Cognition Comment: Improving mentation since initial OT eval. Appropriate behaviors and follows 1-step commands. However, continues to require frequent cues for sternal precautions. Plan Plan Times per week: 5-7 Plan weeks: 4 Current Treatment Recommendations: Balance Training, Functional Mobility Training, Endurance Training, Gait Training, Pain Management, Safety Education & Training, Patient/Caregiver Education & Training, Equipment Evaluation, Education, & procurement, Self-Care / ADL, Home Management Training Goals Short term goals Time Frame for Short term goals: 4 weeks Short term goal 1: grooming at sink in FWW SBA--PROGRESSING Short term goal 2: toileting SBA--SLOW TO PROGRESS Short term goal 3: sternal prec during ADL no cues--PROGRESSING Short term goal 4: LBD with AE SBA--NOT ADDRESSED Patient Goals Patient goals : Pt did not state. Therapy Time Individual Concurrent Group Co-treatment Time In 942 Time Out 1007 Minutes 24 Timed Code Treatment Minutes: 24 Minutes (2- self) This provider wore a surgical mask and gloves for duration of session. Jeannie Rodriguez OTR/L * Rupa Taylor SLP - 11/12/2020 9:36 AM EDT Facility/Department: [facility] Dysphagia Treatment Note NAME: Lavelle Rueda : 1945 Patient Diagnosis(es): Patient Active Problem List Diagnosis Disease NSTEMI (non-ST elevated myocardial infarction) (HCC) Stress hyperglycemia S/P CABG (coronary artery bypass graft) Encephalopathy acute Allergies: Allergies Allergen Reactions Aspartame Beef-Derived Products Contrast [Iodides] Diazepam Other (See Comments) Nightmares. Would not want to take this again. Noted years ago, never charted, never mentioned Food severe stomach discomfort. Iodine Lactose Diarrhea Other Diarrhea additives, fillers, thickeners, colors etc Pork Allergy Saccharin Sucralose Tomato Soy Allergy Nausea And Vomiting Onset Date: 10/31/2020 Oxygen Level: Room AIr Current Diet Level: Regular with Thin Liquids Compensatory Techniques []Chin tuck []Small bolus []Alternate bites/ sips [x]No straws []Liquids by teaspoon only []Swallow x 2 with each bolus []Alternate lemon ice between each bolus []Position patient upright []Other Pain: RN managing S: Sitting up in a chair eating breakfast. O: Assess tolerance for regular diet Oropharyngeal strengthening A: Patient able to self feed breakfast. There is adequate mastication, bolus formation and AP transit. Patient achieves full oral clearance. Laryngeal excursion is clinically adequate. Patient is able to drink water from a cup; including taking PO meds, without any overt evidence of airway penetration. Instructed patient with the Zarina for improved posterior pharyngeal wall contact to the base of the tongue. Patient struggles to accurate complete same but did achieve correct production x 3. [] Goal met [x] Progressing as expected [] Progressing slower than expected [] Medical status inhibits participation [] Goals not addressed this session [] Goals revised this session [] Unable to show any progress towards functional goals [] Progress towards functional goal is gradual / fair P: OK to continue on a regular diet with thin liquids. No straws for now. Will continue the dysphagia plan of care for oropharyngeal strengthening. Time Out: 929 Session Time: 20 minutes A KN95 mask and gloves were worn throughout this session. * Carmelo Brown APRN - AGENT CONTRACT CLERK - 11/12/2020 6:06 AM EDT Images from the original note were not included. Cardiothoracic Surgery Progress Note PATIENT NAME: Lavelle Rueda TODAY'S DATE: 11/12/2020 Surgery/Procedure: 11/04: CABGx4: PERRY to mid LAD, Ao to Ramus w rsvg; Ao to OM1 to RCA PDA sequential w rsvg; left legevH Interval History: POD#8 - improvement in mentation overnight - only CO pain - VSS remains in NSR - labs WNL - neg 800ml since admit - Net IO Since Admission: -827 mL [11/12/20 0606] Recent Labs 11/10/20 2315 11/11/20 0448 11/12/20 0024 WBC 15.5* 14.4* 11.4* HGB 13.0 14.1 12.7 PLT 301 282 257 NA 134* 135 134* K 3.6 4.2 3.9 CREATININE 0.43* 0.50* 0.52 Physical Exam Cardiovascular: Rate and Rhythm: Normal rate and regular rhythm. Heart sounds: Normal heart sounds. Pulmonary: Effort: Pulmonary effort is normal. Breath sounds: Decreased breath sounds present. Abdominal: Palpations: Abdomen is soft. Tenderness: There is no abdominal tenderness. Skin: General: Skin is warm and dry. Capillary Refill: Capillary refill takes less than 2 seconds. Comments: Surgical Incisions: well approximated; clean dry with no drainage noted. Surrounding skin no redness, warmth, or signs of infection noted. Neurological: Mental Status: She is alert. Psychiatric: Behavior: Behavior normal. Behavior is cooperative. ASSESSMENT/PLAN: CAD s/p CABGx4 HTN HLD Acute encephalopathy/delirium: multifactorial-medication withdrawal; anaesthesia, surgery POAF with Conversion pause - EP consulted no PPM at this time - on amiodarone restart lopressor - No OAC - PT/OT likely SNF rehab Cardiac Core Medications: ASA, Statin and BB Post operative pulm management: Normal Post-Operative Course PT recs: IP rehab Speech: Swallow-11/08: regular diet with thin liquids (no straws) EF: 65%-11/01/20 Blood Conservation: 11/04: plt + 2 units PRBC. DVT prophylaxis: TEDs, SCDs and Lovenox Treatment Team: Primary Care Provider: No primary care provider on file. Cardiology: Dr. Goldman CCM: Dr. Serrano Endocrinology: Dr. Mcdonnell Psychiatry: Dr. Goodwin Disclaimer INFORMED CONSENT:The nature and purpose of the proposed treatment or procedure have been discussed.The risks and benefits of the proposed treatment or procedures have been reviewed. Alternatives have been reviewed in addition to the risks and benefits of not receiving treatments or undergoing procedures. Pursuant to this discussion, the patient agrees to undergo the proposed treatment or procedure. Captured images seen in this note from are not a substitute for a comprehensive interpretation of the entire data set as reflected by the interpreting physician with regard to radiology, echocardiography, and other diagnostic images. This note may have been dictated using [employer] Pow[employer] Practice Edition 2.6 and/or [employer] Voice Recognition Feature. The document was proofread, however unrecognized voice recognition antisqueak filler errors may be present. * Rosemary Moncada, TEODORA, LD - 11/11/2020 1:21 PM EDT Comprehensive Nutrition Assessment Type and Reason for Visit: Reassess Nutrition Recommendations/Plan: 1. Continue regular diet, encourage intakes. Intakes very poor at this time. 2. Will re-start PHRQL ONS BID. Provides 325 kcals and 16 gm protein/serving. May adjust frequency as needed. Pt may not be alert enough to consume TID at this time. 3. Monitor intakes, weights, labs, educational needs, overall nutritional status. RD to follow. Nutrition Assessment: Pt remains hospitalized s/p CABG POD#7. Currently on regular, thin liquids asrecommended by SOFT SUGAR CUTTER. ICU re-consulted overnight due to AFIB. Pt noted as tolerating diet. However, pt w/very poor intakes at this time. Pt extremely lethargic upon RD visit, unable to answer questions. Would open eyes and begin to speak but quickly fall back asleep. Pt missing multiple meals and when she does order a meal it is very light. Will re-start [employer] ONS BID. May adjust frequency butunsure how much pt will consume at this time due to confusion/lethargy. Psych following for confusion/delirium. Malnutrition Assessment: Malnutrition Status: At risk for malnutrition (Comment) (Pt currently w/poor intakes, lethargic, noted confusion.) Estimated Daily Nutrient Needs: Energy (kcal): 9046-5571; Weight Used for Energy Requirements: Admission (25-30kcal/kg) Protein (g): 80-87; Weight Used for Protein Requirements: Admission (1.2-1.3g/kg) Fluid (ml/day): Per MD; Method Used for Fluid Requirements: (N/A) Nutrition Related Findings: +BS; abd WDL; no edema Wounds: Surgical Incision Current Nutrition Therapies: ADULT DIET; Regular; No Drinking Straws Adult Oral Nutrition Supplement; Other Oral Supplement; [employer] 1.0 Anthropometric Measures: Height: 5' 6 (167.6 cm) Current Body Weight: 144 lb (65.3 kg) Admission Body Weight: 147 lb 0.8 oz (66.7 kg) (standing scale on 10/31) Usual Body Weight: [place] Body Weight: 130 lbs; % [place] Body Weight 110.8 % BMI: 23.3 Adjusted Body Weight: ; No Adjustment Adjusted BMI: BMI Categories: Normal Weight (BMI 18.5-24.9) Nutrition Diagnosis: Predicted inadequate energy intake related to (percieved food allergies/intolerances and plan for open heart surgery) as evidenced by (food 'allergies' limiting menu options; plan for CABG Wednesday) Increased nutrient needs related to increase demand for energy/nutrients as evidenced by wounds (surgical) Nutrition Interventions: Food and/or Nutrient Delivery: Continue Current Diet, Start Oral Nutrition Supplement Nutrition Education/Counseling: Education not appropriate Coordination of Nutrition Care: Continue to monitor while inpatient Goals: Pt will consume >50% meals/ONS Nutrition Monitoring and Evaluation: Behavioral-Environmental Outcomes: Beliefs and Attitutes, Knowledge or Skill Food/Nutrient Intake Outcomes: Food and Nutrient Intake, Supplement Intake, Diet Advancement/Tolerance Physical Signs/Symptoms Outcomes: Biochemical Data, GI Status, Diarrhea, Meal Time Behavior, Nutrition Focused Physical Findings, Skin, Weight Discharge Planning: Too soon to determine Contact: [id number] * Jazmín Carlos SLP - 11/11/2020 12:58 PM EDT Speech Language Pathology Facility/Department: [facility] Dysphagia Treatment Note NAME: Lavelle Rueda : 1945 Patient Diagnosis(es): Patient Active Problem List Diagnosis Disease NSTEMI (non-ST elevated myocardial infarction) (HCC) Stress hyperglycemia S/P CABG (coronary artery bypass graft) Encephalopathy acute Allergies: Allergies Allergen Reactions Aspartame Beef-Derived Products Contrast [Iodides] Diazepam Other (See Comments) Nightmares. Would not want to take this again. Noted years ago, never charted, never mentioned Food severe stomach discomfort. Iodine Lactose Diarrhea Other Diarrhea additives, fillers, thickeners, colors etc Pork Allergy Saccharin Sucralose Tomato Soy Allergy Nausea And Vomiting Onset Date: 10/31/2020 Oxygen Level: Room Air Current Diet Level: Regular diet with thin liquids Compensatory Techniques -Position patient upright -NO straws -Small sips Pain:Being managed by RN. S: Patient seen for dysphagia treatment seated upright in bed; patient somnolent but agreeable to participation with SOFT SUGAR CUTTER. O: monitor use of strategies, oropharyngeal strengthening A: Patient did not accept any trials of thin liquids this date; however, SOFT SUGAR CUTTER verbally reviewed strategy with patient and patient verbalized understanding of same. Patient has No straws written on whiteboard in room and no straws were seen with liquids on bedside table. SOFT SUGAR CUTTER educated patient on completing effortful swallows to target base of tongue weakness identified in MBSS. Patient completed 10 repetitions x 2 sets. SOFT SUGAR CUTTER attempted to educated patient on completing Zarina maneuver to target BOT/PPW; patient unable to complete successfully. [] Goal met [x] Progressing as expected [] Progressing slower than expected [] Medical status inhibits participation [] Goals not addressed this session [] Goals revised this session [] Unable to show any progress towards functional goals [] Progress towards functional goal is gradual / fair P: Recommend patient resume regular diet with thin liquids, NO straws. SOFT SUGAR CUTTER will continue to follow with dysphagia plan of care. Time In: Total Session Time: A KN95 mask and gloves were worn throughout this session. * Chadd Harden, - 11/11/2020 10:00 AM EDT Lavelle Rueda is a 75 y.o.female CC: Confusion HPI Lavelle has continued episodes of confusion due to memory impairment and disorientation. She states this morning she had no idea whether she was and did not know about her surgery. This has cleared up by time of interview and she is now oriented x4. She continues to have high level of anxiety due to her acute medical condition but is managing it relatively well. No SI or HI. No hallucinations ordelusions. She is tolerating tapering off nortriptyline. Past Medical History: Diagnosis Date CAD (coronary artery disease) Hyperlipidemia Hypertension Iron deficiency anemia Neuropathy Current Facility-Administered Medications Medication Dose Route Frequency Provider Last Rate Last Admin diphenhydrAMINE (BENADRYL) injection 50 mg 50 mg Intravenous Q6H PRN Chano Arndt MD ipratropium-albuterol (DUONEB) nebulizer solution 1 ampule 1 ampule Inhalation TID Carmelo Brown APRN - AGENT CONTRACT CLERK 1 ampule at 11/11/20 0759 enoxaparin (LOVENOX) injection 40 mg 40 mg Subcutaneous Daily LUCIANO Parsons AGENT CONTRACT CLERK 40 mg at 11/11/20 0824 [Held by provider] metoprolol (LOPRESSOR) injection 5 mg 5 mg Intravenous Q5 Min PRN Bebeto Washington APRN - AGENT CONTRACT CLERK 5 mg at 11/09/20 0543 lidocaine 4 % external patch 1 patch 1 patch Transdermal Daily Eligio Stockton MD 1 patch at 11/11/20 0824 0.9 % sodium chloride infusion Intravenous PRN Carmelo Brown APRN - AGENT CONTRACT CLERK acetaminophen (TYLENOL) suppository 650 mg 650 mg Rectal Q4H PRN Carmelo Brown [employer] IN[employer] - AGENT CONTRACT CLERK aspirin EC tablet 325 mg 325 mg Oral Daily Carmelo Brown APRN - AGENT CONTRACT CLERK 325 mg at 11/11/20 0921 [Held by provider] metoprolol (LOPRESSOR) injection 5 mg 5 mg Intravenous Q6H PRN Carmelo Brown [employer] IN[employer] - AGENT CONTRACT CLERK 5 mg at 11/07/20 183 LORazepam (ATIVAN) injection 0.5 mg 0.5 mg Intravenous Q12H Carmelo Brown APRN - AGENT CONTRACT CLERK 0.5 mg at 11/10/20 225 pantoprazole (PROTONIX) tablet 40 mg 40 mg Oral QAM AC Carmelo Brown [employer]CT INSTRU[employer] - AGENT CONTRACT CLERK 40 mg at 11/11/20 0501 LORazepam (ATIVAN) tablet 0.5 mg 0.5 mg Oral BID Carmelo R Stephanie, ADJ[employer] IN[employer] - AGENT CONTRACT CLERK 0.5 mg at 11/11/20 0921 [Held by provider] QUEtiapine (SEROQUEL) tablet 12.5 mg 12.5 mg Oral BID PRN Carmelo Brown, ADJUNCT INSTRUCTOR [employer] - AGENT CONTRACT CLERK 12.5 mg at 11/11/20 0501 [Held by provider] metoprolol tartrate (LOPRESSOR) tablet 25 mg 25 mg Oral BID Carmelo Brown, ADJUNCT INSTRU[employer] - AGENT CONTRACT CLERK 25 mg at 11/10/202048 [Held by provider] amLODIPine (NORVASC) tablet 5 mg 5 mg Oral Daily Carmelo Tc Brown, ADJUNCT INSTRUCTOR [employer] - AGENT CONTRACT CLERK 5 mg at 11/10/20 0855 sodium chloride flush 0.9 % injection 10 mL 10 mL Intravenous PRN Carmelo Brown, ADJUNCT INSTRUCTOR [employer] - AGENT CONTRACT CLERK ondansetron (ZOFRAN) injection 4 mg 4 mg Intravenous Q8H PRN Carmelo Brown, ADJUNCT INSTRUCTOR [employer] - AGENT CONTRACT CLERK 4 mg at 11/09/202024 acetaminophen (TYLENOL) tablet 1,000 mg 1,000 mg Oral Q8H Carmelo Brown, ADJ[employer] IN[employer] - AGENT CONTRACT CLERK 1,000 mg at 11/10/202047 potassium chloride (KLOR-CON M) extended release tablet 20 mEq 20 mEq Oral PRN Carmelo Montez Stephanie, ADJ[employer]CT IN[employer] - AGENT CONTRACT CLERK 40 mEq at 11/10/20 235 polyethylene glycol (GLYCOLAX) packet 17 g 17 g Oral Daily Carmelo R Stephanie, ADJUNCT INSTRU[employer] - AGENT CONTRACT CLERK 17 g at 11/10/20 0855 sennosides-docusate sodium (SENOKOT-S) 8.6-50 MG tablet 2 tablet 2 tablet Oral Nightly Carmelo Brown, ADJUNCT INSTRUCTOR [employer] - AGENT CONTRACT CLERK 2 tablet at 11/09/202023 potassium chloride 20 mEq/50 mL IVPB (Central Line) 20 mEq Intravenous PRN Carmelo Brown, ADJUNCT INSTRUCTOR IN [employer] - AGENT CONTRACT CLERK magnesium sulfate 2000 mg in 50 mL IVPB premix 2,000 mg Intravenous PRN Carmeol Brown, ADJUNCT INSTRUCTOR IN ECONOM[employer] - CNPStopped at 11/10/20 2307 calcium gluconate 2,000 mg in dextrose 5 % 100 mL IVPB 2,000 mg Intravenous PRN Carmelo Montez Stephanie, ADJUNCT INSTRUCTOR IN [employer] - AGENT CONTRACT CLERK Stopped at 11/05/20 0611 glucose (GLUTOSE) 40 % oral gel 15 g 15 g Oral PRN Carmelo Brown, ADJUNCT INSTRU[employer] IN [employer] - AGENT CONTRACT CLERK dextrose 50 % IV solution 12.5 g Intravenous PRN Carmelo Brown APRN - KATHERYN glucagon (rDNA) injection 1 mg 1 mg Intramuscular PRN Carmelo Brown APRN - KATHERYN dextrose 5 % solution 100 mL/hr Intravenous PRN Carmelo Brown APRN - KATHERYN sodium chloride flush 0.9 % injection 5-40 mL 5-40 mL Intravenous 2 times per day Nolan Boss MD 10 mL at 11/11/20 0824 polyethylene glycol (GLYCOLAX) packet 17 g 17 g Oral Daily PRN Nolan Boss MD atorvastatin (LIPITOR) tablet 80 mg 80 mg Oral Nightly Nolan Boss MD 80 mg at 11/10/202048 melatonin tablet 3 mg 3 mg Oral Nightly Mukesh Ricci MD 3 mg at 11/10/202048 Allergies Allergen Reactions Aspartame Beef-Derived Products Contrast [Iodides] Diazepam Other (See Comments) Nightmares. Would not want to take this again. Noted years ago, never charted, never mentioned Food severe stomach discomfort. Iodine Lactose Diarrhea Other Diarrhea additives, fillers, thickeners, colors etc Pork Allergy Saccharin Sucralose Tomato Soy Allergy Nausea And Vomiting Past Surgical History: Procedure Laterality Date APPENDECTOMY 1952 CARDIAC CATHETERIZATION 10/30/2020 CARDIAC CATHETERIZATION 2005 05 stent to LAD History reviewed. No pertinent family history. Social History Tobacco Use Smoking status: Never Smoker Smokeless tobacco: Never Used Vaping Use Vaping Use: Never used Substance Use Topics Alcohol use: Not Currently Drug use: Never Vitals: 11/11/20 0501 11/11/20 0600 11/11/20 0759 11/11/20 0800 BP: (!) 143/71 134/69 Pulse: 76 78 Resp: 18 18 Temp: 98 F (36.7 C) TempSrc: Axillary SpO2: 94% 94% Weight: 144 lb 10 oz (65.6 kg) Height: Malnutrition Assessment Malnutrition Status: At risk for malnutrition (Comment) (s/p open heart surgery, multiple allergiesreported, NPO with dysphagia) (11/05/20 1135) Review of Systems Constitutional: Positive for fatigue. HENT: Negative. Negative for congestion and trouble swallowing. Eyes: Negative. Negative for visual disturbance. Respiratory: Positive for cough. Negative for shortness of breath and wheezing. Cardiovascular: Positive for chest pain. Negative for palpitations. Gastrointestinal: Negative for abdominal pain, constipation, diarrhea and vomiting. Endocrine: Negative. Genitourinary: Negative. Musculoskeletal: Negative for back pain, joint swelling and myalgias. Skin: Negative. Neurological: Negative for dizziness, tremors, seizures, weakness and headaches. Hematological: Negative. Psychiatric/Behavioral: Positive for confusion and decreased concentration. Negative for agitation,behavioral problems, hallucinations, sleep disturbance and suicidal ideas. The patient is nervous/anxious. The patient is not hyperactive. Physical Exam Level of consciousness: Awake Appearance: Appears stated age wearing hospital attire. Seen laying in bed in no distress. Fair grooming and fair hygiene. No physical abnormalities. Behavior/Motor: Fair eye contact. No psychomotor retardation or involuntary movements. Not responding to internal stimuli. Attitude toward examiner: cooperative and attentive Speech: Fluent and with normal rate, volume, and tone Mood: anxious Affect: mood congruent Thought processes: Logical and linear Thought content: No preoccupations, delusions, or obsessions. No suicidal or homicidal ideation. Cognition: oriented to person, place, time, and situation Memory intact short and senior care Fund of knowledge: average Abstract thinking: impaired Insight: Variable due to delerium Judgment: Variable due to delerium Assessment Delirium, mixed subtype, multiple etiologies Depressive disorder Anxiety disorder Plan Weaned off nortriptyline, tolerating this well Continue ativan Continue to treat underlying medical conditions causing delirium Associated attestation - Ryan Goodwin MD - 11/11/2020 1:48 PM EDT Attending Supervising Physician s Attestation Statement The patient met the criteria for indirect supervision. I discussed the findings and plans with the resident physician and agree as documented in his note . * Chase Sheffield MD - 11/11/2020 6:52 AM EDT Critical Care Progress Note 11/11/2020 6:52 AM Subjective: Admit Date: 10/31/2020 PCP: No primary care provider on file. No chief complaint on file. Hospitalization Overview: 75-year-old female with past medical history significant for hypertension, hyperlipidemia, depression, coronary artery disease status post PCI and drug-eluting stent in 2005, arthritis presented to [facility] on October 31 with chest pain. She was found to have circumflex and ramus disease during heart cath. Patient underwent four-vessel CABG on November 04. ICU was consulted for postoperative ventilator management. Patient was extubated on November 04. Had issues with agitation and delirium requiring Precedex. Patient was evaluated by psychiatry. She was weaned off Precedex and has demonstrated steady improvement in mental status. Interval History: ICU reconsulted overnight due to atrial fibrillation. Patient was noted to have pauses on telemetry. Amiodarone was held overnight. Patient converted to normal sinus rhythm. QTC noted to be prolonged. Pacing wires were dislodged several days ago. Medications: Scheduled Meds: ipratropium-albuterol 1 ampule Inhalation TID enoxaparin 40 mg Subcutaneous Daily lidocaine 1 patch Transdermal Daily aspirin 325 mg Oral Daily LORazepam 0.5 mg Intravenous Q12H pantoprazole 40 mg Oral QAM AC LORazepam 0.5 mg Oral BID [Held by provider] metoprolol tartrate 25 mg Oral BID [Held by provider] amLODIPine 5 mg Oral Daily acetaminophen 1,000 mg Oral Q8H polyethylene glycol 17 g Oral Daily sennosides-docusate sodium 2 tablet Oral Nightly sodium chloride flush 5-40 mL Intravenous 2 times per day atorvastatin 80 mg Oral Nightly melatonin 3 mg Oral Nightly Continuous Infusions: sodium chloride dextrose Objective: Vitals: Temp (24hrs), Av.1 F (36.7 C), Min:97.5 F (36.4 C), Max:98.6 F (37 C) BP (!) 144/76 Pulse 77 Temp 97.7 F (36.5 C) (Oral) Resp 16 Ht 5' 6 (1.676 m) Wt 144 lb 10 oz (65.6 kg) SpO2 93% BMI 23.34 kg/m I/O:24HR INTAKE/OUTPUT: Intake/Output Summary (Last 24 hours) at 11/11/2020 0652 Last data filed at 11/11/2020 0500 Gross per 24 hour Intake 355 ml Output 300 ml Net 55 ml 11/10 0701 - 11/11 0700 In: 355 [I.V.:355] Out: 300 [Urine:300] CVP: CVP (Mean): 8 mmHg Ventilator Settings: Vent Mode: AC/VC+ Rate Set: 14 bmp Vt Ordered: 365 mL Pressure Support: 0 cmH20 PEEP/CPAP: 8 FiO2 : 30 % Physical Exam General Appearance: []WDWN []Obese []Cachectic []Thin []ill Skin: Temperature [x]Warm []Cool / Rash []Yes [x]No / Tattoo(s) []Yes []No Heent: Pupils round and react [x]Yes []No Sclera []Icteric [x]Non-Icteric Conjunctiva []Injected [x]Non-Injected / Pinnae []Normal []Other/ Dentitian [][place] Teeth []No [place] Teeth []Dentures Oral Mucosa []Highgrove [x]Moist []Dry/ Oral ETT []Present [x]Absent Neck: Trachea midline [x]Yes []No/ Thyromegaly []Yes [x]No/ Crepitus []Present [x]Absent /Jvd []Present [x]Absent / []supple Lungs: [x]Clear []Crackles []Wheezes []Rhonchi / Respiratory effort []Labored [x]Non-Labored Heart: [x]RRR []Irregularly Irregular []murmur present []murmur absent/ Peripheral Edema [x]Absent []Present Abdomen: [x]Soft Bowel Sounds [x]Present []Absent []Diminished []Hyperactive []Hypoactive []Tender [x]Non-Tender []Distended [x]Non-distended / Hernia []Present []Absent []Unable to assess due to body habitus/ Organomegaly []Absent []Present []Unable to assess due to body habitus/ []Scar Extremities: Cyanosis []Present [x]Absent/ DELGADO ([x]RUE [x]RLE [x]LUE [x]LLE) Neurologic: [place] []Yes []No Corneal reflexes []Present []Absent / Plantar reflexes []Up []Down []Absent / Withdraws to tactile []Yes []No/ Follows Commands [x]Yes []No []Unresponsive to verbal Psych: Alert [x]yes []no Oriented []x0 []x1 [x]x2 []x3 / Affect [x]Normal []Flat []Aggitated [x]Calm []Sedated []NAD []anxious BMP: Recent Labs 11/10/20 1510 11/10/20 2315 11/10/20 2330 11/11/20 0448 NA 134* 134* -- 135 K 3.5 3.6 -- 4.2 CL 104 102 -- 102 CO2 25 26 -- 27 BUN 15 13 -- 14 CREATININE 0.46* 0.43* -- 0.50* GLUCOSE 116* 118* -- 99 CALCIUM 8.6 8.7 -- 9.6 IONCA -- -- 4.10* -- MG 1.9 2.9* -- -- PHOS -- 3.2 -- -- Ionized Calcium: Lab Results Component Value Date IONCA 4.10 11/10/2020 IONCA 4.50 11/07/2020 CBC: Recent Labs 11/10/20 0234 11/10/20 2315 WBC 13.3* 15.5* HGB 13.2 13.0 PLT 337 301 Assessment and Plan: Principal Problem: S/P CABG (coronary artery bypass graft) Active Problems: NSTEMI (non-ST elevated myocardial infarction) (HCC) Disease Stress hyperglycemia Encephalopathy acute Resolved Problems: * No resolved hospital problems. * Neurological: Calm and cooperative this morning. Somewhat sleepy after Seroquel dose overnight. Oriented to person and place. States the month is November. Does note that it is 2020. Cardiovascular: Electrophysiology consulted by CT surgery this morning. Currently in normal sinus rhythm. Will defer to electrophysiology recommendations. No current vasoactive medications. Amiodarone, beta-twyla, calcium channel twyla held overnight. Pulmonary: Breathing comfortably on room air. Patient pulls 800 cc on incentive spirometer. Continue pulmonary hygiene measures. FEN/GI: Tolerating diet. No electrolyte disturbance. Adequate renal function and urine output. : Voiding spontaneously Hematologic: Hemoglobin and platelet counts are stable within normal limits. No evidence of acute bleeding. Endocrine: Glycemic control per endocrinology. ID: No current antimicrobial therapy. Patient afebrile. Prophylaxis: Stress ulcer: Protonix VTE: Lovenox Bowel: Senna and GlycoLax Invasive Lines: Peripheral IV x2 Full Code Patient seen hours Excluding procedures, the total critical care time caring for this patient with life threatening, unstable organ failure, including direct patient contact, review of medical record, management of life support systems, review of data including imaging and labs, discussions with other team members, patient's family and physicians at least 35 minutes so far today. * Alphonso Hernandez APRN - AGENT CONTRACT CLERK - 11/11/2020 5:29 AM EDT Images from the original note were not included. Cardiothoracic Surgery Progress Note PATIENT NAME: Lavelle Rueda TODAY'S DATE: 11/11/2020 Surgery/Procedure: 11/04: CABGx4: PERRY to mid LAD, Ao to Ramus w rsvg; Ao to OM1 to RCA PDA sequential w rsvg; left legevH Interval History: POD#7: Afib last night; amio started-->having ~2-3 sec pauses trying to convert; amio turned off; patient converted by self stayed in NSR-QTc in 600's. Alert to self only, unclear on place and that she had heart surgery. VSS on RA currently. Denies any chest pain. Net IO Since Admission: -1,087 mL [11/11/20 0529] Recent Labs 11/09/20 0239 11/10/20 0234 11/10/20 1510 11/10/20 2315 WBC 12.8* 13.3* -- 15.5* HGB 12.9 13.2 -- 13.0 PLT 242 337 -- 301 NA 136 135 134* 134* K 3.3* 3.3* 3.5 3.6 CREATININE 0.50* 0.54 0.46* 0.43* Physical Exam Cardiovascular: Rate and Rhythm: Normal rate and regular rhythm. Heart sounds: Normal heart sounds. Pulmonary: Effort: Pulmonary effort is normal. Breath sounds: Decreased breath sounds present. Abdominal: Palpations: Abdomen is soft. Tenderness: There is no abdominal tenderness. Skin: General: Skin is warm and dry. Capillary Refill: Capillary refill takes less than 2 seconds. Comments: Surgical Incisions: well approximated; clean dry with no drainage noted. Surrounding skin no redness, warmth, or signs of infection noted. Neurological: Mental Status: She is alert. Psychiatric: Behavior: Behavior normal. Behavior is cooperative. ASSESSMENT/PLAN: CAD s/p CABGx4 HTN HLD Acute encephalopathy/delirium: multifactorial-medication withdrawal; anaesthesia, surgery POAF Due to long pauses with last conversion and elevated QTc with multiple POAF events this admission, will discuss consulting EP for recs on rounds. Patient does not have temp pacing wires. Cardiac Core Medications: ASA, Statin and BB Post operative pulm management: Normal Post-Operative Course PT recs: IP rehab Speech: Swallow-11/08: regular diet with thin liquids (no straws) EF: 65%-11/01/20 Blood Conservation: 11/04: plt + 2 units PRBC. DVT prophylaxis: TEDs, SCDs and Lovenox Disposition: TBD: await EP recs; likely Rehab vs SNF when medically ready. Treatment Team: Primary Care Provider: No primary care provider on file. Cardiology: Dr. Goldman CCM: Dr. Serrano Endocrinology: Dr. Mcdonnell Psychiatry: Dr. Goodwin Disclaimer INFORMED CONSENT:The nature and purpose of the proposed treatment or procedure have been discussed.The risks and benefits of the proposed treatment or procedures have been reviewed. Alternatives have been reviewed in addition to the risks and benefits of not receiving treatments or undergoing procedures. Pursuant to this discussion, the patient agrees to undergo the proposed treatment or procedure. Captured images seen in this note from are not a substitute for a comprehensive interpretation of the entire data set as reflected by the interpreting physician with regard to radiology, echocardiography, and other diagnostic images. This note may have been dictated using [employer] Edition 2.6 and/or [employer] [place] Voice Recognition Feature. The document was proofread, however unrecognized voice recognition antisqueak filler errors may be present. * Shirley Cross RN - 11/11/2020 2:23 AM EDT 1945: pt was in afib RVR for a few hours. Lance BLACK received telephone order from Dr. Anrdt to start amiodarone despite iodine allergy. Benefits outweighed risk. Monitored closely for any s/s of allergic rxn once gtt was started. 2g Mag replaced. 2300: Pt started having frequent 4s pauses. Patient pale and lethargic. C/O abdominal pain. BP stable. Labs sent. Called Dr. Arndt. Received order to stop amiodarone, and re-consult ICU. Labs resulted, 40mg K given per standing orders. 2345: Dr. Reynolds at bedside to eval. 3g calcium replacement ordered. All betablockers held. 0015: Troponin resulted elevated 0.242; stat EKG ordered. 0030: pt converted to NSR; EKG obtained while patient in NSR Dr. Reynolds read EKG, no ST changes. Will recheck troponin later this AM. 0500: Pt woke up, A&Ox1. Very tearful and emotional. Seroquel given. Does not remember events of last night or having surgery. * Eligio Gandara MD - 11/10/2020 11:42 PM EDT Critical Care Progress Note 11/10/2020 11:42 PM Subjective: Admit Date: 10/31/2020 PCP: No primary care provider on file. Chief Complaint: pauses on rhythm No chief complaint on file. Interval History: Called to re-eval pt Afib, now with pauses on telemetry Review of Systems Respiratory: Negative for shortness of breath. Cardiovascular: Negative for chest pain. Gastrointestinal: Positive for nausea. Negative for abdominal pain and vomiting. Neurological: Negative for syncope, light-headedness and headaches. Diet: ADULT DIET; Regular; No Drinking Straws Medications: Scheduled Meds: ketorolac 15 mg Intravenous Q6H atropine ipratropium-albuterol 1 ampule Inhalation TID enoxaparin 40 mg Subcutaneous Daily lidocaine 1 patch Transdermal Daily aspirin 325 mg Oral Daily LORazepam 0.5 mg Intravenous Q12H pantoprazole 40 mg Oral QAM AC LORazepam 0.5 mg Oral BID metoprolol tartrate 25 mg Oral BID amLODIPine 5 mg Oral Daily acetaminophen 1,000 mg Oral Q8H polyethylene glycol 17 g Oral Daily sennosides-docusate sodium 2 tablet Oral Nightly sodium chloride flush 5-40 mL Intravenous 2 times per day atorvastatin 80 mg Oral Nightly melatonin 3 mg Oral Nightly Continuous Infusions: amiodarone Stopped (11/10/200) Followed by [START ON 11/11/2020] amiodarone sodium chloride dextrose CBC: Recent Labs 11/09/20 0239 11/10/20 0234 11/10/20 2315 WBC 12.8* 13.3* 15.5* HGB 12.9 13.2 13.0 HCT 39.3 40.0 38.8 PLT 242 337 301 BMP: Recent Labs 11/08/20 0248 11/09/20 02311/10/20 02311/10/20 1510 NA 135 136 135 134* K 4.0 3.3* 3.3* 3.5 CL 102 102 100 104 CO2 25 28 28 25 BUN 19 19 14 15 CREATININE 0.46* 0.50* 0.54 0.46* GLUCOSE 96 95 108* 116* CALCIUM 9.2 8.9 8.9 8.6 MG 2.1 -- -- 1.9 PHOS 3.3 -- -- -- Ionized Calcium: Lab Results Component Value Date IONCA 4.50 11/07/2020 IONCA 3.90 11/05/2020 HEPATIC: No results for input(s): AST, ALT, ALB, BILITOT, ALKPHOS in the last 72 hours. LACTATE: No results for input(s): LACTA in the last 72 hours. PROCALCITONIN: No results for input(s): PROCAL in the last 72 hours. CORTISOL: No results for input(s): CORTISOL in the last 72 hours. TSH: No results for input(s): TSH in the last 72 hours. TROPONIN: No results for input(s): TROPONINI in the last 72 hours. BNP: No results for input(s): BNP in the last 72 hours. INR: No results for input(s): INR in the last 72 hours. BLOOD GAS: No results for input(s): PHART, VKY9ODZ, PO2ART, BAM1LPL, V9OIKPCK in the last 72 hours. Objective: Vitals: Temp (24hrs), Av.1 F (36.7 C), Min:97.5 F (36.4 C), Max:98.6 F (37 C) BP (!) 145/87 Pulse 89 Temp 97.5 F (36.4 C) Resp 20 Ht 5' 6 (1.676 m) Wt 144 lb 6.4 oz (65.5 kg) SpO2 94% BMI 23.31 kg/m I/O: Date 11/09/202300 - 11/10/2069911/10/20700 - 11/11/20 07 Shift 2573-1311 24 Hour Total 5806-5674 2247-3633 4577-0492 24 Hour Total INTAKE P.O. 150 Shift Total 150 OUTPUT Urine 300 300 300 Shift Total 300 300 300 NET -150 -300 -300 Ventilator Settings: PHYSICAL EXAM: General Appearance: [x]WDWN []Obese []Cachectic []Thin []ill Skin: Temperature [x]Warm []Cool Rash []Yes []No Tattoo(s) []Yes []No HEENT: Pupils round and react [x]Yes []No Sclera []Icteric []Non-Icteric Conjunctiva []Injected []Non-Injected Pinnae []Normal []Other Dentitian [][place] Teeth []Dentures []edentulous Oral Mucosa [x][place]gro[place] [x]Moist []Dry Oral ETT []Present [x]Absent Neck: Trachea midline [x]Yes []No Thyromegaly []Yes [x]No Crepitus []Present [x]Absent Jvd []Present [x]Absent Lungs: [x]Clear []Crackles []Wheezes []Rhonchi Respiratory effort []Labored [x]Non-Labored Heart: Rate []Regular [x]Irregular []Tachycardia []Bradycardia Rhythm []Regular [x]Irregular Murmur []Present [x]Absent Peripheral Edema []Present [x]Absent Abdomen: [x]Soft Bowel Sounds [x]Present []Absent []Tender [x]Non-Tender []Distended [x]Non-distended Hernia []Present []Absent Organomegaly []Present [x]Absent []unable to assess 2/2 body habitus []Scar Extremities: Cyanosis []Present [x]Absent DELGADO ([x]RUE [x]RLE [x]LUE [x]LLE) Neurologic: [place] []Yes [x]No Corneal reflexes [x]Present []Absent Plantar reflexes []Up []Down []Absent Withdraws to tactile [x]Yes []No Follows Commands [x]Yes []No []Unresponsive to verbal [x]Cranial nerves grossly intact [x]Sensation grossly intact Psych: Alert [x]yes []no Oriented []x0 []x1 []x2 [x]x3 Affect [x]Normal []Flat []Agitated []Anxious [x]Calm []Sedated []NAD Assessment and Plan: Severe CAD 11/04 s/p CABG x 4 Afib RVR with rhythm pauses Check EKG D/c amio, hold b-twyla and CCB F/u electrolytes Ongoing monitoring GI prophylaxis--protonix DVT prophylaxis--lovenox Nutrition--po See orders. * Benita Allen, TYPO MACHINE OPERATOR - 11/10/2020 1:18 PM EDT Physical Therapy Facility/Department: [facility] Daily Treatment Note NAME: Lavelle Rueda : 1945 Date of Service: 11/10/2020 Discharge Recommendations: IP Rehab PT Equipment Recommendations Equipment Needed: No Other: she does have a walker at home if she needs it. Assessment Body structures, Functions, Activity limitations: Decreased functional mobility ;Decreased cognition;Decreased endurance;Decreased coordination;Decreased strength;Decreased balance;Increased pain;Decreased safe awareness;Decreased ROM;Decreased posture Assessment: Pt limited by lethargy, difficulty keeping eyes open through out session. Needed cues for sternal precautions. Overall min assist for functional mobility. Recommend rehab at discharge. Treatment Diagnosis: decreased functional mobility and independence. Prognosis: Good Decision Making: Medium Complexity Barriers to Learning: cognition REQUIRES PT FOLLOW UP: Yes Activity Tolerance Activity Tolerance: Patient limited by fatigue;Patient limited by endurance;Patient limited by cognitive status Patient Diagnosis(es): There were no encounter diagnoses. has a past medical history of CAD (coronary artery disease), Hyperlipidemia, Hypertension, Iron deficiency anemia, and Neuropathy. has a past surgical history that includes Cardiac catheterization (10/30/2020); Cardiac catheterization (2005); and Appendectomy (1952). Restrictions Restrictions/Precautions Restrictions/Precautions: Weight Bearing, Modified Diet, Fall Risk Required Braces or Orthoses?: No Upper Extremity Weight Bearing Restrictions Right Upper Extremity Weight Bearing: (sternal precautions) Left Upper Extremity Weight Bearing: (sternal precautions) Position Activity Restriction Sternal Precautions: No Pushing, No Pulling, 10# Lifting Restrictions Sternal Precautions: YES! Other position/activity restrictions: tele, +bed/chair alarm Subjective General Chart Reviewed: Yes Response To Previous Treatment: Patient with no complaints from previous session. Family / Caregiver Present: No Subjective Subjective: Pt up in chair. Agreeable to PT. States she is very tired and had a hard time keeping eyes open. RN states ok to get back to bed at end of session General Comment Comments: . Pain Screening Patient Currently in Pain: Yes Pain Assessment Pain Assessment: (did not rate on a pain scale) Pain Location: Back;Generalized (states its the usual) Vital Signs Patient Currently in Pain: Yes Orientation Orientation Orientation Level: Oriented to person;Disoriented to place;Disoriented to time Objective Bed mobility Rolling to Left: Minimal assistance Sit to Supine: Minimal assistance Comment: moves very slowly, cues to hold sternal pillow, bed alarm on Transfers Sit to Stand: Minimal Assistance Stand to sit: Minimal Assistance Comment: stood from recliner and toilet. cues for sternal precautions Ambulation Ambulation?: Yes WB Status: sternal precautions More Ambulation?: Yes Ambulation 1 Surface: level tile Device: Rolling Walker Assistance: Minimal assistance Gait Deviations: Slow Stephanie;Decreased step length;Decreased step height Distance: 13 ft, 5 ft, 40 ft Comments: pt declined to go in hallway, needed walker guided when turning Balance Comments: Pt used bathroom, was able to wipe with supervision for balance, tends to lean forward. Pt stood at sink to wash hands, min assist and cues for sequencing. Exercises Upper Extremity: P&C ex #1, 3 x 5 reps, #2,6,7,8,9 x 10 reps with AAROM (hand in hand) Other exercises Other exercises 1: I.S. x 8 reps, 250- 500mL Other exercises 2: non-productive cough Goals Short term goals Time Frame for Short term goals: 2 weeks Short term goal 1: bed mobility indep; progressing Short term goal 2: transfers indep.; progressing Short term goal 3: independent managing secretions; progressing Short term goal 4: independent performing P&C exercises and their progression; progressing Short term goal 5: independent following walking program and its progression, rating her own RPE and adjusting as she goes.; progressing Short term goal 6: follows sternal precautions all of the time.; progressing Patient Goals Patient goals : none stated Plan Plan Times per week: 6-7 Times per day: Daily Plan weeks: 2 Current Treatment Recommendations: Strengthening, Transfer Training, Endurance Training, Gait Training, Balance Training, Functional Mobility Training Safety Devices Type of devices: Gait belt, All fall risk precautions in place, Bed alarm in place, Left in bed, Call light within reach, Nurse notified Restraints Initially in place: No Therapy Time Individual Concurrent Group Co-treatment Time In 1242 Time Out 1307 Minutes 25 Timed Code Treatment Minutes: 25 Minutes (gait, TP) *PPE worn per facility policy during session* Benita Allen PTA * Carmelo Brown, LUCIANO - AGENT CONTRACT CLERK - 11/10/2020 6:23 AM EDT Images from the original note were not included. Cardiothoracic Surgery Progress Note PATIENT NAME: Lavelle Rueda TODAY'S DATE: 11/10/2020 Surgery/Procedure: 11/04: CABGx4: PERRY to mid LAD, Ao to Ramus w rsvg; Ao to OM1 to RCA PDA sequential w rsvg; left legevH Interval History: POD #6 no new issues overnight - pain well controlled Net IO Since Admission: -1,142 mL [11/10/20 0623] Recent Labs 11/08/20 0248 11/09/20 0239 11/10/20 0234 WBC 11.7* 12.8* 13.3* HGB 13.4 12.9 13.2 PLT 239 242 337 NA 135 136 135 K 4.0 3.3* 3.3* CREATININE 0.46* 0.50* 0.54 Physical Exam Cardiovascular: Rate and Rhythm: Normal rate and regular rhythm. Heart sounds: Normal heart sounds. Pulmonary: Effort: Pulmonary effort is normal. Breath sounds: Decreased breath sounds present. Abdominal: Palpations: Abdomen is soft. Tenderness: There is no abdominal tenderness. Skin: General: Skin is warm and dry. Capillary Refill: Capillary refill takes less than 2 seconds. Comments: Surgical Incisions: well approximated; clean dry with no drainage noted. Surrounding skin no redness, warmth, or signs of infection noted. Neurological: Mental Status: She is alert. Psychiatric: Behavior: Behavior normal. Behavior is cooperative. ASSESSMENT/PLAN: CAD s/p CABGx4 HTN HLD Acute encephalopathy/delirium: multifactorial-medication withdrawal; anaesthesia, surgery PT/OT - replace K+ - DC lasix - Dispo to IP rehab Cardiac Core Medications: ASA, Statin and BB Post operative pulm management: Normal Post-Operative Course PT recs: IP rehab Speech: NPO except PO meds in puree EF: 65%-11/01/20 Blood Conservation: 11/04: plt + 2 units PRBC. DVT prophylaxis: TEDs, SCDs and Lovenox Disposition: TBD Treatment Team: Primary Care Provider: No primary care provider on file. Cardiology: Dr. Goldman CCM: Dr. Serrano Endocrinology: Dr. Mcdonnell Psychiatry: Dr. Goodwin Disclaimer INFORMED CONSENT:The nature and purpose of the proposed treatment or procedure have been discussed.The risks and benefits of the proposed treatment or procedures have been reviewed. Alternatives have been reviewed in addition to the risks and benefits of not receiving treatments or undergoing procedures. Pursuant to this discussion, the patient agrees to undergo the proposed treatment or procedure. Captured images seen in this note from are not a substitute for a comprehensive interpretation of the entire data set as reflected by the interpreting physician with regard to radiology, echocardiography, and other diagnostic images. This note may have been dictated using [employer] Edition 2.6 and/or [employer] Voice Recognition Feature. The document was proofread, however unrecognized voice recognition antisqueak filler errors may be present. * Carmelo Brown APRN - CNP - 11/09/2020 5:40 AM EDT Images from the original note were not included. Cardiothoracic Surgery Progress Note PATIENT NAME: Lavelle Rueda TODAY'S DATE: 11/09/2020 Surgery/Procedure: 11/04: CABGx4: PERRY to mid LAD, Ao to Ramus w rsvg; Ao to OM1 to RCA PDA sequential w rsvg; left legevH Interval History: POD #5 - Back in A-fib VSS - Net IO Since Admission: -992 mL [11/09/20 0541] Recent Labs 11/07/20 1838 11/08/20 0248 11/09/20 0239 WBC 10.5 11.7* 12.8* HGB 13.1 13.4 12.9 PLT 212 239 242 NA 136 135 136 K 3.3* 4.0 3.3* CREATININE 0.55 0.46* 0.50* Physical Exam Cardiovascular: Rate and Rhythm: Normal rate and regular rhythm. Heart sounds: Normal heart sounds. Pulmonary: Effort: Pulmonary effort is normal. Breath sounds: Decreased breath sounds present. Abdominal: Palpations: Abdomen is soft. Tenderness: There is no abdominal tenderness. Skin: General: Skin is warm and dry. Capillary Refill: Capillary refill takes less than 2 seconds. Comments: Surgical Incisions: well approximated; clean dry with no drainage noted. Surrounding skin no redness, warmth, or signs of infection noted. Neurological: Mental Status: She is alert. Psychiatric: Behavior: Behavior normal. Behavior is cooperative. ASSESSMENT/PLAN: CAD s/p CABGx4 HTN HLD Acute encephalopathy/delirium: multifactorial-medication withdrawal; anaesthesia, surgery Back if A-fib overnight - plan additional dig and BB today - daily EKG to check QTC Cardiac Core Medications: ASA, Statin and BB Post operative pulm management: Normal Post-Operative Course PT recs: IP rehab Speech: NPO except PO meds in puree EF: 65%-11/01/20 Blood Conservation: 11/04: plt + 2 units PRBC. DVT prophylaxis: TEDs, SCDs and Lovenox Disposition: TBD Treatment Team: Primary Care Provider: No primary care provider on file. Cardiology: Dr. Goldman CCM: Dr. Serrano Endocrinology: Dr. Mcdonnell Psychiatry: Dr. Goodwin Disclaimer INFORMED CONSENT:The nature and purpose of the proposed treatment or procedure have been discussed.The risks and benefits of the proposed treatment or procedures have been reviewed. Alternatives have been reviewed in addition to the risks and benefits of not receiving treatments or undergoing procedures. Pursuant to this discussion, the patient agrees to undergo the proposed treatment or procedure. Captured images seen in this note from are not a substitute for a comprehensive interpretation of the entire data set as reflected by the interpreting physician with regard to radiology, echocardiography, and other diagnostic images. This note may have been dictated using [employer] Practice Edition 2.6 and/or [employer] Voice Recognition Feature. The document was proofread, however unrecognized voice recognition antisqueak filler errors may be present. * Ryan Goodwin MD - 11/08/2020 4:58 PM EDT Lavelle Rueda is a 75 y.o. female S/P CABG (coronary artery bypass graft) I saw patient while wearing an N-95 surgical mask for the entire interview. I did not touch the patient, maintained 2 meters distance, and utilized hand cup setter lockstitch on entry and upon exiting the room Awake, alert and more cooperative. Receptive to trial off nortiptyline due to delirium. No SI not agitated. Brother at bedside, I provided my card and answered questions about our involvement in her care. Current Facility-Administered Medications Medication Dose Route Frequency Provider Last Rate Last Admin furosemide (LASIX) injection 20 mg 20 mg Intravenous BID LUCIANO Bills CNP 20 mg at 11/08/20 0826 ipratropium-albuterol (DUONEB) nebulizer solution 1 ampule 1 ampule Inhalation TID LUCIANO Enriquez CNP enoxaparin (LOVENOX) injection 40 mg 40 mg Subcutaneous Daily LUCIANO Parsons CNP 40 mg at 11/08/20 0826 metoprolol (LOPRESSOR) injection 5 mg 5 mg Intravenous Q5 Min PRN LUCIANO Hamilton CNP digoxin (LANOXIN) injection 250 mcg 250 mcg Intravenous Q6H Eligio Stockton MD 250 mcg at 11/08/20 1125 nortriptyline (PAMELOR) capsule 25 mg 25 mg Oral Nightly Chadd Harden DO 25 mg at 11/07/20 2144 lidocaine 4 % external patch 1 patch 1 patch Transdermal Daily Eligio Stockton MD 1 patch at 11/08/20 0826 0.9 % sodium chloride infusion Intravenous PRN Carmelo Brown, ADJUNCT INSTRUCTOR IN ECONOMICS - AGENT CONTRACT CLERK acetaminophen (TYLENOL) suppository 650 mg 650 mg Rectal Q4H PRN Carmelo Brown, ADJUNCT INSTRUCTOR IN ECONOMICS - AGENT CONTRACT CLERK aspirin EC tablet 325 mg 325 mg Oral Daily Carmelo Brown, ADJUNCT INSTRUCTOR IN ECONOMICS - AGENT CONTRACT CLERK 325 mg at 11/08/20 0826 metoprolol (LOPRESSOR) injection 5 mg 5 mg Intravenous Q6H PRN Carmelo Brown, ADJUNCT INSTRUCTOR IN ECONOMICS - AGENT CONTRACT CLERK 5 mg at 11/07/20 183 LORazepam (ATIVAN) injection 0.5 mg 0.5 mg Intravenous Q12H Carmelo Brown, ADJUNCT INSTRUCTOR IN ECONOMICS - AGENT CONTRACT CLERK 0.5 mg at 11/08/20 1125 pantoprazole (PROTONIX) tablet 40 mg 40 mg Oral QAM AC Carmelo Brown, ADJUNCT INSTRUCTOR IN ECONOMICS - AGENT CONTRACT CLERK 40 mg at 11/06/20 0852 LORazepam (ATIVAN) tablet 0.5 mg 0.5 mg Oral BID Carmelo Brown, ADJUNCT INSTRUCTOR IN ECONOMICS - AGENT CONTRACT CLERK 0.5 mg at 11/08/20 0826 QUEtiapine (SEROQUEL) tablet 12.5 mg 12.5 mg Oral BID PRN Carmelo Brown, ADJUNCT INSTRUCTOR IN ECONOMICS - AGENT CONTRACT CLERK 12.5 mg at 11/07/20 214 metoprolol tartrate (LOPRESSOR) tablet 25 mg 25 mg Oral BID Carmelo Brown, ADJUNCT INSTRUCTOR IN ECONOMICS - AGENT CONTRACT CLERK 25 mg at 11/08/20 0826 amLODIPine (NORVASC) tablet 5 mg 5 mg Oral Daily Carmelo Brown, ADJUNCT INSTRUCTOR IN ECONOMICS - AGENT CONTRACT CLERK 5 mg at 11/08/20 0826 0.45 % sodium chloride infusion Intravenous Continuous Carmelo Brown, ADJUNCT INSTRUCTOR IN ECONOMICS - AGENT CONTRACT CLERK 20 mL/hr at 11/04/20 1320 New Bag at 11/04/20 1320 sodium chloride flush 0.9 % injection 10 mL 10 mL Intravenous PRN Carmelo Brown, ADJUNCT INSTRUCTOR IN ECONOMICS - AGENT CONTRACT CLERK ondansetron (ZOFRAN) injection 4 mg 4 mg Intravenous Q8H PRN Carmelo Brown, ADJUNCT INSTRUCTOR IN ECONOMICS - AGENT CONTRACT CLERK acetaminophen (TYLENOL) tablet 1,000 mg 1,000 mg Oral Q8H Carmelo Brown, ADJUNCT INSTRUCTOR IN ECONOMICS - AGENT CONTRACT CLERK 1,000 mg at 11/08/20 1222 potassium chloride (KLOR-CON M) extended release tablet 20 mEq 20 mEq Oral PRN Carmelo Brown, ADJUNCT INSTRUCTOR IN ECONOMICS - AGENT CONTRACT CLERK 20 mEq at 11/07/202147 polyethylene glycol (GLYCOLAX) packet 17 g 17 g Oral Daily Carmelo Brown, ADJUNCT INSTRUCTOR IN ECONOMICS - AGENT CONTRACT CLERK 17 g at 11/06/20 0852 sennosides-docusate sodium (SENOKOT-S) 8.6-50 MG tablet 2 tablet 2 tablet Oral Nightly Carmelo Brown, ADJUNCT INSTRUCTOR IN ECONOMICS - AGENT CONTRACT CLERK 2 tablet at 11/06/202050 potassium chloride 20 mEq/50 mL IVPB (Central Line) 20 mEq Intravenous PRN Carmelojamir Brown, ADJUNCT INSTRUCTOR IN ECONOMICS - AGENT CONTRACT CLERK magnesium sulfate 2000 mg in 50 mL IVPB premix 2,000 mg Intravenous PRN Carmelo Brown, ADJUNCT INSTRUCTOR IN ECONOMICS - AGENT CONTRACT CLERK calcium gluconate 2,000 mg in dextrose 5 % 100 mL IVPB 2,000 mg Intravenous PRN Carmelo Tc Stephanie, ADJUNCT INSTRUCTOR IN ECONOMICS - AGENT CONTRACT CLERK Stopped at 11/05/20 0611 glucose (GLUTOSE) 40 % oral gel 15 g 15 g Oral PRN Carmelojamir Brown, ADJUNCT INSTRUCTOR IN ECONOMICS - AGENT CONTRACT CLERK dextrose 50 % IV solution 12.5 g Intravenous PRN Carmelo R Stephanie, ADJUNCT INSTRUCTOR IN ECONOMICS - AGENT CONTRACT CLERK glucagon (rDNA) injection 1 mg 1 mg Intramuscular PRN Carmelo Brown, ADJUNCT INSTRUCTOR IN ECONOMICS - AGENT CONTRACT CLERK dextrose 5 % solution 100 mL/hr Intravenous PRN Carmelojamir Brown, ADJUNCT INSTRUCTOR IN ECONOMICS - AGENT CONTRACT CLERK sodium chloride flush 0.9 % injection 5-40 mL 5-40 mL Intravenous 2 times per day Nolan Boss MD 10 mL at 11/08/20 08 polyethylene glycol (GLYCOLAX) packet 17 g 17 g Oral Daily PRN Nolan Boss MD atorvastatin (LIPITOR) tablet 80 mg 80 mg Oral Nightly Nolan Boss MD 80 mg at 11/07/202141 melatonin tablet 3 mg 3 mg Oral Nightly Mukesh Ricci MD 3 mg at 11/07/202141 Allergies Allergen Reactions Aspartame Beef-Derived Products Contrast [Iodides] Diazepam Other (See Comments) Nightmares. Would not want to take this again. Noted years ago, never charted, never mentioned Food severe stomach discomfort. Iodine Lactose Diarrhea Other Diarrhea additives, fillers, thickeners, colors etc Pork Allergy Saccharin Sucralose Tomato Soy Allergy Nausea And Vomiting Vitals: 11/08/20 0800 11/08/20 0914 11/08/20 1205 11/08/20 1601 BP: 135/78 132/62 Pulse: 73 79 Resp: Temp: 98 F (36.7 C) 97.6 F (36.4 C) 98 F (36.7 C) TempSrc: Oral Oral Oral SpO2: 92% 100% 94% 94% Weight: Height: Social History Tobacco Use Smoking status: Never Smoker Smokeless tobacco: Never Used Vaping Use Vaping Use: Never used Substance Use Topics Alcohol use: Not Currently Drug use: Never MSE as above, improving insight and judgement Recent Results (from the past 48 hour(s)) POCT Glucose Collection Time: 11/06/20 5:56 PM Result Value Ref Range POC Glucose 127 (H) 70 - 100 mg/dL Phosphorus Collection Time: 11/07/20 12:11 AM Result Value Ref Range Phosphorus 2.3 (L) 2.5 - 4.5 mg/dL Basic Metabolic Panel Collection Time: 11/07/20 12:11 AM Result Value Ref Range Sodium 135 135 - 145 mmol/L Potassium 3.7 3.5 - 5.1 mmol/L Chloride 105 98 - 107 mmol/L CO2 28 22 - 30 mmol/L Anion Gap 2 (L) 3 - 13 mmol/L Glucose 120 (H) 70 - 100 mg/dL BUN 18 7 - 20 mg/dL CREATININE 0.40 (L) 0.52 - 1.25 mg/dL eGFR >90.0 >60 mL/min EGFR IF NonAfrican [place]er >90.0 >60 mL/min Calcium 8.4 8.4 - 10.4 mg/dL CBC Collection Time: 11/07/20 12:11 AM Result Value Ref Range WBC 8.1 3.6 - 10.7 10*3/uL RBC 3.70 (L) 3.80 - 5.20 10*6/uL Hemoglobin 11.1 (L) 11.7 - 16.0 g/dL Hematocrit 32.5 (L) 35.0 - 47.0 % MCV 88.0 79.0 - 98.0 fL MCH 29.9 26.0 - 34.0 pg MCHC 34.0 32.0 - 36.0 % RDW 14.4 11.5 - 14.5 % Platelets 153 140 - 440 10*3/uL MPV 9.5 7.4 - 10.4 fL Magnesium Collection Time: 11/07/20 12:11 AM Result Value Ref Range Magnesium 2.0 1.6 - 2.3 mg/dL POCT Glucose Collection Time: 11/07/20 9:15 AM Result Value Ref Range POC Glucose 73 70 - 100 mg/dL POCT Glucose Collection Time: 11/07/20 1:20 PM Result Value Ref Range POC Glucose 98 70 - 100 mg/dL POCT Glucose Collection Time: 11/07/20 4:21 PM Result Value Ref Range POC Glucose 93 70 - 100 mg/dL POCT Glucose Collection Time: 11/07/20 5:15 PM Result Value Ref Range POC Glucose 108 (H) 70 - 100 mg/dL Basic Metabolic Panel Collection Time: 11/07/20 6:38 PM Result Value Ref Range Sodium 136 135 - 145 mmol/L Potassium 3.3 (L) 3.5 - 5.1 mmol/L Chloride 102 98 - 107 mmol/L CO2 27 22 - 30 mmol/L Anion Gap 6 3 - 13 mmol/L Glucose 112 (H) 70 - 100 mg/dL BUN 20 7 - 20 mg/dL CREATININE 0.55 0.52 - 1.25 mg/dL eGFR >90.0 >60 mL/min EGFR IF NonAfrican [place]er >90.0 >60 mL/min Calcium 9.1 8.4 - 10.4 mg/dL CBC Collection Time: 11/07/20 6:38 PM Result Value Ref Range WBC 10.5 3.6 - 10.7 10*3/uL RBC 4.42 3.80 - 5.20 10*6/uL Hemoglobin 13.1 11.7 - 16.0 g/dL Hematocrit 39.3 35.0 - 47.0 % MCV 88.9 79.0 - 98.0 fL MCH 29.7 26.0 - 34.0 pg MCHC 33.4 32.0 - 36.0 % RDW 14.5 11.5 - 14.5 % Platelets 212 140 - 440 10*3/uL MPV 9.5 7.4 - 10.4 fL Calcium, Ionized Collection Time: 11/07/20 6:38 PM Result Value Ref Range Ionized Ca 4.50 4.30 - 5.20 mg/dL pH, Bld 7.40 7.31 - 7.46 NA Magnesium Collection Time: 11/07/20 6:38 PM Result Value Ref Range Magnesium 2.1 1.6 - 2.3 mg/dL Phosphorus Collection Time: 11/07/20 6:38 PM Result Value Ref Range Phosphorus 3.0 2.5 - 4.5 mg/dL Phosphorus Collection Time: 11/08/20 2:48 AM Result Value Ref Range Phosphorus 3.3 2.5 - 4.5 mg/dL Basic Metabolic Panel Collection Time: 11/08/20 2:48 AM Result Value Ref Range Sodium 135 135 - 145 mmol/L Potassium 4.0 3.5 - 5.1 mmol/L Chloride 102 98 - 107 mmol/L CO2 25 22 - 30 mmol/L Anion Gap 9 3 - 13 mmol/L Glucose 96 70 - 100 mg/dL BUN 19 7 - 20 mg/dL CREATININE 0.46 (L) 0.52 - 1.25 mg/dL eGFR >90.0 >60 mL/min EGFR IF NonAfrican [place]er >90.0 >60 mL/min Calcium 9.2 8.4 - 10.4 mg/dL CBC Collection Time: 11/08/20 2:48 AM Result Value Ref Range WBC 11.7 (H) 3.6 - 10.7 10*3/uL RBC 4.45 3.80 - 5.20 10*6/uL Hemoglobin 13.4 11.7 - 16.0 g/dL Hematocrit 40.3 35.0 - 47.0 % MCV 90.5 79.0 - 98.0 fL MCH 30.1 26.0 - 34.0 pg MCHC 33.3 32.0 - 36.0 % RDW 15.0 (H) 11.5 - 14.5 % Platelets 239 140 - 440 10*3/uL MPV 9.4 7.4 - 10.4 fL Magnesium Collection Time: 11/08/20 2:48 AM Result Value Ref Range Magnesium 2.1 1.6 - 2.3 mg/dL Assessment delirium, multifactorial improving Plan Medications as ordered. I am away 11/09 and 11/10/2020, Dr Martin covering with assistance of supervisor cap and hat production psychiatry residents (Dr. Harden Wednesday and Dr. Benitez Wednesday). * Cindy Pires RCP - 11/08/2020 2:36 PM EDT Patient Evaluation Form The patient is currently receiving Duoneb Q4WA Points 0 1 2 3 4 Points Totals Pulmonary Status (-/+) History Smoking history < 20 pack years Smoking history > 20 pack years Pulmonary Disorder (acute or chronic) Severe or Chronic with Exacerbation 0 Surgical Status No Surgery Trach PEG General Surgery Lower Abdominal Thoracic or Upper Abdominal Thoracic with Pulmonary Disorder 3 Chest X-ray Clear None Ordered Chronic Changes CXR results Pending Infiltrates, atelectasis, pleural effusion, or edema Infiltrates in more than one lobe Infiltrate + Atelectasis, &/or pleural effusion 4 Respiratory Pattern Regular, RR = 12-20 Increased, RR = 21-25 HUTTON, irregular, or RR = 26-30 Decreased FEV1 or RR = 31-35 Severe SOB, used of of accessory muscles, or RR = > 35 0 Mental Status Alert, oriented, cooperative Confused, but follows commands Lethargic or un-able to follow commands Obtunded Comatose 0 Breath Sounds Clear to auscultation Decreased unilaterally or in bases only Decreased bilaterally Crackles or intermittent wheezes Wheezes 2 Cough Strong, spontaneous, & nonproductive Strong, spontaneous, & productive Weak, nonproductive Weak, productive or with wheezes No spontaneous cough or may require suctioning 0 Level of Activity Ambulatory Ambulatory with Assist Non-ambulatroy Paraplegic Quadriplegic 1 Triage 1 > 20 pts Triage 2 16-20 pts Triage 3 11- 15 pts Triage 4 6 - 10 pts Triage 5 0 - 5 pts TOTAL POINTS = 10 Triage Score = 4 PEF: N/a FVC: N/a FEV1: N/a FVE1/FVC: N/a Patient instructed and returned demonstration on use of MDI (with spacer, as appropriate) No Changing Therapy to Duoneb TID * Paty Jordan, TYPO MACHINE OPERATOR - 11/08/2020 11:33 AM EDT Physical Therapy Facility/Department: [facility] Daily Treatment Note NAME: Lavelle Rueda : 1945 Date of Service: 11/08/2020 Discharge Recommendations: IP Rehab Assessment Body structures, Functions, Activity limitations: Decreased functional mobility ;Decreased cognition;Decreased endurance;Decreased coordination;Decreased strength;Decreased balance;Increased pain;Decreased safe awareness;Decreased ROM;Decreased posture Assessment: Pt present with the above deficits requiring min assist for all functional mobility. 2/3 recall of sternal precautions, education and ongoing cues for compliancy. Pt with improved balancewith standing and gait. Increased time to complete all functional task. Rec rehab upon discharge. Treatment Diagnosis: decreased functional mobility and independence. REQUIRES PT FOLLOW UP: Yes Activity Tolerance Activity Tolerance: Patient limited by fatigue;Patient limited by endurance;Patient limited by cognitive status Patient Diagnosis(es): There were no encounter diagnoses. has a past medical history of CAD (coronary artery disease), Hyperlipidemia, Hypertension, Iron deficiency anemia, and Neuropathy. has a past surgical history that includes Cardiac catheterization (10/30/2020); Cardiac catheterization (2005); and Appendectomy (1952). Restrictions Restrictions/Precautions Restrictions/Precautions: Weight Bearing, Modified Diet, Fall Risk Required Braces or Orthoses?: No Upper Extremity Weight Bearing Restrictions Right Upper Extremity Weight Bearing: (sternal precautions) Left Upper Extremity Weight Bearing: (sternal precautions) Position Activity Restriction Sternal Precautions: No Pushing, No Pulling, 10# Lifting Restrictions Sternal Precautions: YES! Other position/activity restrictions: tele, +bed/chair alarm Subjective General Chart Reviewed: Yes Family / Caregiver Present: No Subjective Subjective: Pt in bed, HOB elevated and agreeable to PT . RN cleared pt for therapy. Pt just returned to room from [facility]. Pain Screening Patient Currently in Pain: Yes Pain Assessment Pain Assessment: Faces Michael-Hdz Pain Rating: Hurts a little bit Pain Location: Abdomen;Chest Objective Bed mobility Supine to Sit: Minimal assistance (for trunk elevation) Scooting: Minimal assistance (seated towards EOB) Comment: HOB slightly elevated cues for sternal precautions. Increased time and cuing for sequencing. Transfers Sit to Stand: Minimal Assistance Stand to sit: Minimal Assistance Comment: x3 reps (EOB, toilet and chair). Cues for sequencing and sternal precautions. Ambulation Ambulation?: Yes WB Status: sternal precautions More Ambulation?: Yes Ambulation 1 Surface: level tile Device: Rolling Walker Assistance: Minimal assistance Gait Deviations: Slow Stephanie;Decreased step length;Decreased step height Distance: 15 ft x 2 Comments: Improved balance from yesterday, slow moving, very small steps, cues for sequencing and managing FWW. Ambulation 2 Surface - 2: level tile Device 2: Rolling Walker Assistance 2: Minimal assistance Gait Deviations: Slow Stephanie;Decreased step length;Decreased step height Distance: 25ft x 2 Comments: Cues for sequencing and increase step length. Slow pace Stairs/Curb Stairs?: No Balance Comments: dynamic sitting for pericare, supervision; dynamic standing for hand hygiene, increased time, slow moving, min assist for balance. Exercises Upper Extremity: P&C ex #1-9 all x 5 reps each Comments: Increased time with P&C ex and rest breaks needed. 2/3 recall of sternal precautions,ongoing cues for compliancy, especially during transfers. Other exercises Other exercises 1: I.S. x 8 reps, 500mL Other exercises 2: non-productive cough AM-PAC Score Goals Short term goals Time Frame for Short term goals: 2 weeks Short term goal 1: bed mobility indep; progressing Short term goal 2: transfers indep.; progressing Short term goal 3: independent managing secretions; progressing Short term goal 4: independent performing P&C exercises and their progression; progressing Short term goal 5: independent following walking program and its progression, rating her own RPE and adjusting as she goes.; progressing Short term goal 6: follows sternal precautions all of the time.; progressing Patient Goals Patient goals : none stated Plan Plan Times per week: 6-7 Times per day: Daily Plan weeks: 2 Current Treatment Recommendations: Strengthening, Transfer Training, Endurance Training, Gait Training, Balance Training, Functional Mobility Training Safety Devices Type of devices: Left in chair, Chair alarm in place, Call light within reach, All fall risk precautions in place, Nurse notified, Patient at risk for falls Restraints Initially in place: No Therapy Time Individual Concurrent Group Co-treatment Time In 1048 Time Out 1115 Minutes 27 Timed Code Treatment Minutes: 27 Minutes (fa; tp) Paty Jordan, TYPO MACHINE OPERATOR * Madison Clark SOFT SUGAR CUTTER - 11/08/2020 10:53 AM EDT Speech Language Pathology A Modified Barium Swallow (MBS) evaluation was completed. The full Speech Pathology report is located under the Chart Review section of [facility]. Click on the Procedure tab to locate the Speech Pathologist MBS results and recommendations. Recommend a regular diet with thin liquids, no straws. Madison Clark MA, CCC-SOFT SUGAR CUTTER * Alphonso Hernandez APRN - AGENT CONTRACT CLERK - 11/08/2020 5:20 AM EDT Images from the original note were not included. Cardiothoracic Surgery Progress Note PATIENT NAME: Lavelle Rueda TODAY'S DATE: 11/08/2020 Surgery/Procedure: 11/04: CABGx4: PERRY to mid LAD, Ao to Ramus w rsvg; Ao to OM1 to RCA PDA sequential w rsvg; left legevH Interval History: POD#4: confusion; pulled IV out-placed in restraints. POAF last evening. amio bolus and gtt + dig (4 doses ordered)->converted to SR; remains on gtt. SR rates in 60's. Voided x1 yesterday per nsg;bladder scaned <100cc noted no intervention noted. Patient Alert and oriented but unclear of place: thought she was in [place]- did note that she had quadruple bypass. Unhappy with her care and stated this whole thing sucks. Net IO Since Admission: -392 mL [11/08/20 0520] Recent Labs 11/07/20 0011 11/07/20 1838 11/08/20 0248 WBC 8.1 10.5 11.7* HGB 11.1* 13.1 13.4 PLT 153 212 239 NA 135 136 135 K 3.7 3.3* 4.0 CREATININE 0.40* 0.55 0.46* Physical Exam Cardiovascular: Rate and Rhythm: Normal rate and regular rhythm. Heart sounds: Normal heart sounds. Pulmonary: Effort: Pulmonary effort is normal. Breath sounds: Decreased breath sounds present. Abdominal: Palpations: Abdomen is soft. Tenderness: There is no abdominal tenderness. Skin: General: Skin is warm and dry. Capillary Refill: Capillary refill takes less than 2 seconds. Comments: Surgical Incisions: well approximated; clean dry with no drainage noted. Surrounding skin no redness, warmth, or signs of infection noted. Neurological: Mental Status: She is alert. Psychiatric: Behavior: Behavior normal. Behavior is cooperative. ASSESSMENT/PLAN: CAD s/p CABGx4 HTN HLD Acute encephalopathy/delirium: multifactorial-medication withdrawal; anaesthesia, surgery Continue dig and BB d/c amio: QTc 567; Trial out of restraints. Barium swallow pending. Continue current medications. PT/OT and aggressive pulm hygiene. Cardiac Core Medications: ASA, Statin and BB Post operative pulm management: Normal Post-Operative Course PT recs: IP rehab Speech: NPO except PO meds in puree EF: 65%-11/01/20 Blood Conservation: 11/04: plt + 2 units PRBC. DVT prophylaxis: TEDs, SCDs and Lovenox Disposition: TBD Treatment Team: Primary Care Provider: No primary care provider on file. Cardiology: Dr. Goldman CCM: Dr. Serrano Endocrinology: Dr. Mcdonnell Psychiatry: Dr. Goodwin Disclaimer INFORMED CONSENT:The nature and purpose of the proposed treatment or procedure have been discussed.The risks and benefits of the proposed treatment or procedures have been reviewed. Alternatives have been reviewed in addition to the risks and benefits of not receiving treatments or undergoing procedures. Pursuant to this discussion, the patient agrees to undergo the proposed treatment or procedure. Captured images seen in this note from are not a substitute for a comprehensive interpretation of the entire data set as reflected by the interpreting physician with regard to radiology, echocardiography, and other diagnostic images. This note may have been dictated using [employer] Edition 2.6 and/or [employer] Voice Recognition Feature. The document was proofread, however unrecognized voice recognition antisqueak filler errors may be present. * Jamir Montelongo OT - 11/07/2020 4:13 PM EDT Occupational Therapy Occupational Therapy Initial Assessment Date: 11/07/2020 Patient Name: Lavelle Rueda : 1945 Date of Service: 11/07/2020 Discharge Recommendations: (facility based) Assessment Performance deficits / Impairments: Decreased functional mobility ;Decreased ADL status;Decreased strength;Decreased safe awareness;Decreased cognition;Decreased endurance;Decreased balance;Decreasedhigh-level IADLs Assessment: Admitted s/p CABGx4, sternal precauitons.Pt lives alone in house, indep with ADL TYPO MACHINE OPERATOR. On eval pt fatigued, drowsy. Demos mod A sit<>stand transfers and mod A fxl mob in room using FWW with heavy posterior lean. Pt max A LBD, will need AE training. At this time she is most appropriate for facility based therapies. Prognosis: Good Decision Making: Low Complexity OT Education: Plan of Care;OT Role;Precautions;ADL Adaptive Strategies;Transfer Training REQUIRES OT FOLLOW UP: Yes Safety Devices Safety Devices in place: Yes Type of devices: Call light within reach;Patient at risk for falls;Left in chair;Chair alarm in place;Nurse notified Patient Diagnosis(es): There were no encounter diagnoses. has a past medical history of CAD (coronary artery disease), Hyperlipidemia, Hypertension, Iron deficiency anemia, and Neuropathy. has a past surgical history that includes Cardiac catheterization (10/30/2020); Cardiac catheterization (2005); and Appendectomy (1952). Restrictions Restrictions/Precautions Restrictions/Precautions: Weight Bearing, Modified Diet, Fall Risk Required Braces or Orthoses?: No Upper Extremity Weight Bearing Restrictions Right Upper Extremity Weight Bearing: (sternal precautions) Left Upper Extremity Weight Bearing: (sternal precautions) Position Activity Restriction Sternal Precautions: No Pushing, No Pulling, 10# Lifting Restrictions Sternal Precautions: YES! Other position/activity restrictions: catheter, tele, O2, +chair alarm Subjective General Chart Reviewed: Yes Patient assessed for rehabilitation services?: Yes Family / Caregiver Present: No Social/Functional History Social/Functional History Lives With: (Pt. states her boyfriend lives there.) Type of Home: House Home Layout: Two level, Able to Live on Main level with bedroom/bathroom Home Access: Stairs to enter with rails Entrance Stairs - Number of Steps: 3 Bathroom Shower/Tub: Walk-in shower Bathroom Toilet: Standard Bathroom Equipment: Grab bars in shower, Shower chair Bathroom Accessibility: Accessible Home Equipment: (has FWW if needed) Receives Help From: Family, Friend(s) ADL Assistance: Independent Homemaking Assistance: Independent Homemaking Responsibilities: Yes Ambulation Assistance: Independent Transfer Assistance: Independent Active Chemicals Distiller: Yes Mode of Transportation: Car Occupation: Retired Objective Orientation Overall Orientation Status: Within Functional Limits Balance Sitting Balance: Supervision Standing Balance: Moderate assistance ADL LE Dressing: Maximum assistance Tone RUE RUE Tone: Normotonic Tone LUE LUE Tone: Normotonic Transfers Sit to stand: Moderate assistance Stand to sit: Moderate assistance LUE AROM (degrees) LUE AROM : WFL RUE AROM (degrees) RUE AROM : WFL Plan Plan Times per week: 5-7 Plan weeks: 4 Current Treatment Recommendations: Balance Training, Functional Mobility Training, Endurance Training, Gait Training, Pain Management, Safety Education & Training, Patient/Caregiver Education & Training, Equipment Evaluation, Education, & procurement, Self-Care / ADL, Home Management Training G-Code OutComes Score [facility] Daily Activity Inpatient How much help for putting on and taking off regular lower body clothing?: A Lot How much help for Bathing?: A Lot How much help for Toileting?: A Lot How much help for putting on and taking off regular upper body clothing?: None How much help for taking care of personal grooming?: A Little How much help for eating meals?: None [facility] Inpatient Daily Activity Raw Score: 17 [facility] Inpatient ADL T-Scale Score : 37.26 ADL Inpatient CMS 0-100% Score: 50.11 ADL Inpatient CMS G-Code Modifier : CK AM-PAC Score [facility] Inpatient Daily Activity Raw Score: 17 (11/07/201606) [facility] Inpatient ADL T-Scale Score : 37.26 (11/07/201606) ADL Inpatient CMS 0-100% Score: 50.11 (11/07/201606) ADL Inpatient CMS G-Code Modifier : CK (11/07/201606) Goals Short term goals Time Frame for Short term goals: 4 weeks Short term goal 1: grooming at sink in FWW SBA Short term goal 2: toileting SBA Short term goal 3: sternal prec during ADL no cues Short term goal 4: LBD with AE SBA Therapy Time Individual Concurrent Group Co-treatment Time In 1131 Time Out 1145 Minutes 14 Jamir Montelongo OT Goals and/or treatment plan was established in collaboration with patient/family/other representatives. Patient's Occupational Therapy Plan of Care supervision is transferred to [facility] Occupational Therapist. *OT evaluation/treatment completed wearing N95, face shield and gloves* * Paty Jordan, TYPO MACHINE OPERATOR - 11/07/2020 12:08 PM EDT Physical Therapy Facility/Department: [facility] Daily Treatment Note NAME: Lavelle Rueda : 1945 Date of Service: 11/07/2020 Discharge Recommendations: IP Rehab Assessment Body structures, Functions, Activity limitations: Decreased functional mobility ;Decreased cognition;Decreased endurance;Decreased coordination;Decreased strength;Decreased balance;Increased pain;Decreased safe awareness Assessment: Pt present with the above deficits requiring mod assist for all functional mobility. 0/3 recall of sternal precautions, education and review provided. +retrograde balance with both standing and gait. Rec rehab upon discharge. REQUIRES PT FOLLOW UP: Yes Activity Tolerance Activity Tolerance: Patient limited by fatigue;Patient limited by endurance;Patient limited by cognitive status Patient Diagnosis(es): There were no encounter diagnoses. has a past medical history of CAD (coronary artery disease), Hyperlipidemia, Hypertension, Iron deficiency anemia, and Neuropathy. has a past surgical history that includes Cardiac catheterization (10/30/2020); Cardiac catheterization (2005); and Appendectomy (1952). Restrictions Restrictions/Precautions Restrictions/Precautions: Weight Bearing, Modified Diet, Fall Risk Required Braces or Orthoses?: No Upper Extremity Weight Bearing Restrictions Right Upper Extremity Weight Bearing: (sternal precautions) Left Upper Extremity Weight Bearing: (sternal precautions) Position Activity Restriction Sternal Precautions: No Pushing, No Pulling, 10# Lifting Restrictions Sternal Precautions: YES! Other position/activity restrictions: catheter, tele, O2, +chair alarm Subjective General Chart Reviewed: Yes Family / Caregiver Present: No Subjective Subjective: Pt reclined in chair and agreeable to PT. RN cleared pt for therapy. Pain Screening Patient Currently in Pain: Yes Pain Assessment Pain Assessment: 0-10 Pain Level: 4 Pain Type: Acute pain;Surgical pain Pain Location: Chest;Buttocks Objective Bed mobility Comment: NT- pt in chair Transfers Sit to Stand: Moderate Assistance Stand to sit: Moderate Assistance Comment: x2 reps from chair. Cues for sternal precautions Ambulation Ambulation?: Yes WB Status: sternal precautions Ambulation 1 Surface: level tile Device: Rolling Walker Other Apparatus: O2 Assistance: Moderate assistance Gait Deviations: Slow Stephanie;Decreased step length;Decreased step height;Shuffles Distance: 25 ft with chair follow. Comments: retrograde balance, very short steps, cues for sequencing and manging FWW. Stairs/Curb Stairs?: No Balance Comments: static standing x 2 reps, pt with retrograde balance, cues to correct and able to comply for short periods, pt did best with FWW, pt for the majority of standing was mod assist and had and episode of max assist and short periods of progressing to min assist. AM-PAC Score Goals Short term goals Time Frame for Short term goals: 2 weeks Short term goal 1: bed mobility indep; not addressed Short term goal 2: transfers indep.; progressing Short term goal 3: independent managing secretions; progressing Short term goal 4: independent performing P&C exercises and their progression; not addressed Short term goal 5: independent following walking program and its progression, rating her own RPE and adjusting as she goes.; progressing Short term goal 6: follows sternal precautions all of the time.; progressing slowly Patient Goals Patient goals : none stated Plan Plan Times per week: 6-7 Times per day: Daily Plan weeks: 2 Current Treatment Recommendations: Strengthening, Transfer Training, Endurance Training, Gait Training, Balance Training, Functional Mobility Training Safety Devices Type of devices: Left in chair, Chair alarm in place, Call light within reach, All fall risk precautions in place, Nurse notified, Patient at risk for falls Restraints Initially in place: No Therapy Time Individual Concurrent Group Co-treatment Time In 1137 Time Out 1147 Minutes 10 Timed Code Treatment Minutes: 10 Minutes (fa) Paty Jrodan PTA * Nati Foley RD, LD - 11/07/2020 11:19 AM EDT Nutrition Note Received call from diet office regarding very limited choices on pureed diet due to pt's food sensitivities/allergies as pureed foods contain soy oil. Pt affirms she does not want foods containing soy oil. Discussed resuming [employer] ONS to supplement diet and encouraged pureed food brought from home, which pt states she will discuss with her spouse. Pt does not recall trying [employer] suppleme nt when previously ordered, however did try supplement in presence of RD which she tolerated well. Noted SOFT SUGAR CUTTER recommendation today: Recommend continuation of NPO except PO meds in puree. Pt remains with pureed diet ordered. Discussed diet concern with RN who is awaiting clarification from SOFT SUGAR CUTTER. > Will reorder [employer] 1.0 TID to be provided as diet allows, to supplement diet (325kcal, 16g protein, 11oz each) > Monitor swallow function for appropriateness for PO diet. If EN becomes indicated, recommend [employer] Peptide 1.5 (other tube feeding) at goal rate of 45ml/hr to provide 1660kcal, 80g protein,and 756ml free water (28kcal and 1.4g protein per kg IBW) > RD will monitor and follow weekly Contact: pager [phone] * Nayeli Serrano MD - 11/07/2020 11:00 AM EDT ICU Progress Note 11/07/2020 11:44 AM Subjective: Admit Date: 10/31/2020 PCP: No primary care provider on file. Interval History: Pt sitting up in chair. Taking PO pureed diet. No coughing or choking noted. Pt much more appropriate at present. Diet: ADULT DIET; Dysphagia - Pureed; 2000 ml Adult Oral Nutrition Supplement; Other Oral Supplement; [employer] 1.0 Medications: Scheduled Meds: enoxaparin 40 mg Subcutaneous Daily magnesium hydroxide 60 mL Oral Once insulin lispro 0-6 Units Subcutaneous TID WC nortriptyline 25 mg Oral Nightly lidocaine 1 patch Transdermal Daily aspirin 325 mg Oral Daily LORazepam 0.5 mg Intravenous Q12H pantoprazole 40 mg Oral QAM AC LORazepam 0.5 mg Oral BID metoprolol tartrate 25 mg Oral BID amLODIPine 5 mg Oral Daily acetaminophen 1,000 mg Oral Q8H chlorhexidine 15 mL Mouth/Throat BID mupirocin Nasal BID polyethylene glycol 17 g Oral Daily sennosides-docusate sodium 2 tablet Oral Nightly ipratropium-albuterol 1 ampule Inhalation Q4H [place] sodium chloride flush 5-40 mL Intravenous 2 times per day atorvastatin 80 mg Oral Nightly melatonin 3 mg Oral Nightly Continuous Infusions: sodium chloride sodium chloride 20 mL/hr at 11/04/20 1320 dextrose CBC: Recent Labs 11/05/20 0012 11/06/20 0417 11/07/20 0011 WBC 7.6 7.5 8.1 HGB 7.9* 11.6* 11.1* PLT 144 139* 153 BMP: Recent Labs 11/05/20 0012 11/06/2041611/07/20 0011 NA 138 138 135 K 3.8 4.1 3.7 CL 109* 105 105 CO2 23 25 28 BUN 13 16 18 CREATININE 0.60 0.56 0.40* GLUCOSE 96 130* 120* Objective: Vitals: BP (!) 142/80 Pulse 70 Temp 99 F (37.2 C) (Bladder) Resp 17 Ht 5' 6 (1.676 m) Wt161 lb 13.1 oz (73.4 kg) SpO2 98% BMI 26.12 kg/m Physical Exam: General Appearance: [x]WDWN []Obese []Cachectic []Thin []ill Skin: Temperature [x]Warm []Cool Rash []Yes [x]No Tattoo(s) []Yes []No HEENT: Pupils round and react [x]Yes []No Sclera []Icteric [x]Non-Icteric Conjunctiva []Injected [x]Non-Injected Pinnae [x]Normal []Other Dentitian [x][place] Teeth []Dentures []Poor dentition []Edentulous Oral Mucosa [x][place] [x]Moist []Dry Oral ETT []Present [x]Absent Neck: Trachea midline [x]Yes []No Thyromegaly []Yes [x]No Crepitus []Present [x]Absent Jvd []Present [x]Absent Lungs: [x]Clear []Crackles []Wheezes []Rhonchi Respiratory effort []Labored [x]Non-Labored Heart: Rate [x]Regular []Irregular []Tachycardia []Bradycardia Rhythm [x]Regular []Irregular Murmur []Present [x]Absent Peripheral Edema []Present [x]Absent Abdomen: [x]Soft Bowel Sounds [x]Present []Absent []Diminished []Tender [x]Non-Tender []Distended [x]Non-distended Hernia []Present []Absent Organomegaly []Present [x]Absent []Unable to assess due to size []Scar Extremities: Cyanosis []Present [x]Absent Capillary Refill [x]<3 sec []>3 sec DELGADO ([x]RUE [x]RLE [x]LUE [x]LLE) Neurologic: [place] []Yes [x]No Corneal reflexes []Present []Absent Plantar reflexes []Up []Down []Absent Withdraws to tactile []Yes []No Follows Commands [x]Yes []No []Unresponsive to verbal [x]Cranial nerves grossly intact []Sensation grossly intact Psych: Alert [x]yes []no Oriented []x0 []x1 []x2 [x]x3 Affect [x]Normal []Flat []Agitated []Anxious []Calm []Sedated []NAD Assessment and Plan: 1. POD 3 CABG X 4: metoprolol, ASA, statin, amlodipine. 2. Encephalopathy: non focal exam, metabolic most likely, slow improvement, pt was able to sleep some last night 3. Post op pulmonary management: Pt with bilateral effusions and atelectasis and edema, IS, increase activity, diurese 4. Nutrition: possible dysphagia, MBS today although pt tolerated diet this morning without signs of aspiration 5. Anemia: stable 6. DVT/GI proph Patient Active Problem List: Disease NSTEMI (non-ST elevated myocardial infarction) (HCC) Stress hyperglycemia S/P CABG (coronary artery bypass graft) Encephalopathy acute NAYELI SERRANO MD, MD * Franchesca Mcdonnell MD - 11/07/2020 9:55 AM EDT Images from the original note were not included. Department of Internal Medicine Division of Endocrinology, Diabetes, & Metabolism Endocrinology Note Patient Name: Lavelle Rueda : 1945 AGE: 75 y.o. Room/Bed: [place] [address] Admission Date: 10/31/2020 1:25 AM Consult Date: 11/04/20 Visit Date: 11/07/2020 Reason for Endocrine Consult: post op heart surgery Provider/Team Requesting Consult: Stephanie PCP: No primary care provider on file. Outpt Senior Health Consultant: no ASSESSMENT: Stress hyperglycemia CAD s/p CABG x4 Acute encephalopathy, resolved PLAN: The inpt antihyperglycemic regimen will be as follows: Continue Humalog low dose SSI TID Monitor BG If BG remain stable with initiating diet, will discontinue SSI and BG checks and sign off If hypoglycemia were to occur it should be treated per hospital protocol. Diet recommendation: carb controlled 4 carb choices ANTICIPATED ENDOCRINE HOME GOING RECOMMENDATIONS: Optimized for Discharge from Endocrine standpoint: yes Home Going Endocrine Rx Recommendations-- None Outpt Follow Up-- PCP SUBJECTIVE/HPI: Pt being followed for: postop hyperglycemia History of DM: no Type of DM: Onset of DM: Home DM Medication Regimen: none DM control (last A1c/glucose data): Lab Results Component Value Date LABA1C 5.3 10/31/2020 Lab Results Component Value Date EAG 105 10/31/2020 Cardiac Surgery Procedure: cabg x 4 [id number], Ao-om1-pda sequential w/ rsvg, Ao-ramus w/ rsvg Procedure Date: 11/04/2020 - she has been alert and oriented - started on a diet; will have formal swallow eval today - currently eating some lemon ice - denies new complaints - BG 73 this AM, on SSI and has not required any doses ROS negative except for those mentioned in HPI. OBJECTIVE: Vitals: 11/07/20 0800 11/07/20 0810 11/07/20 0814 11/07/20 0917 BP: (!) 127/57 113/71 Pulse: 82 82 Resp: 18 Temp: 99 F (37.2 C) TempSrc: Bladder SpO2: 98% 95% Weight: Height: Physical Exam Vitals reviewed. Constitutional: General: She is not in acute distress. Appearance: She is well-developed. HENT: Head: Normocephalic. Eyes: General: No scleral icterus. Conjunctiva/sclera: Conjunctivae normal. Cardiovascular: Rate and Rhythm: Normal rate and regular rhythm. Pulses: Normal pulses. Heart sounds: Normal heart sounds. No murmur heard. Comments: +sternal incision intact Pulmonary: Effort: Pulmonary effort is normal. No respiratory distress. Breath sounds: No wheezing, rhonchi or rales. Abdominal: General: There is no distension. Palpations: Abdomen is soft. There is no mass. Tenderness: There is no abdominal tenderness. Musculoskeletal: General: No swelling, tenderness or deformity. Cervical back: Neck supple. Lymphadenopathy: Cervical: No cervical adenopathy. Skin: General: Skin is warm and dry. Findings: No erythema or rash. Neurological: Mental Status: She is alert. Motor: No tremor. Comments: responsive, oriented 24 hour intake/output: Intake/Output Summary (Last 24 hours) at 11/07/2020 0956 Last data filed at 11/07/2020 0917 Gross per 24 hour Intake 1914 ml Output 1028 ml Net 886 ml Diet: ADULT DIET; Dysphagia - Pureed; 2000 ml Medications (as per EMR): HomeMeds: Prior to Admission medications Medication Sig Start Date End Date Taking? Authorizing Provider nortriptyline (PAMELOR) 25 MG capsule Take 25 mg by mouth 5 times daily 05/03/20 Yes Historical Provider, metoprolol tartrate (LOPRESSOR) 25 MG tablet Take 25 mg by mouth 2 times daily 12/14/19 Yes Historical Provider, ferrous sulfate (IRON 325) 325 (65 Fe) MG tablet Take 325 mg by mouth daily 06/12/20 Yes Historical Provider, vitamin D (CHOLECALCIFEROL) 65048 UNIT CAPS Take 50,000 Units by mouth once a week 12/14/19 Yes Historical Provider, aspirin 81 MG EC tablet Take 81 mg by mouth daily 06/12/20 Yes Historical Provider, clorazepate (TRANXENE) 3.75 MG tablet Take 3.75 mg by mouth 4 times daily as needed. 08/21/20 02/17/21 Yes Historical Provider, Scheduled Meds: enoxaparin 40 mg Subcutaneous Daily magnesium hydroxide 60 mL Oral Once insulin lispro 0-6 Units Subcutaneous TID WC nortriptyline 25 mg Oral Nightly lidocaine 1 patch Transdermal Daily aspirin 325 mg Oral Daily LORazepam 0.5 mg Intravenous Q12H pantoprazole 40 mg Oral QAM AC LORazepam 0.5 mg Oral BID metoprolol tartrate 25 mg Oral BID amLODIPine 5 mg Oral Daily acetaminophen 1,000 mg Oral Q8H chlorhexidine 15 mL Mouth/Throat BID mupirocin Nasal BID polyethylene glycol 17 g Oral Daily sennosides-docusate sodium 2 tablet Oral Nightly ipratropium-albuterol 1 ampule Inhalation Q4H [place] sodium chloride flush 5-40 mL Intravenous 2 times per day atorvastatin 80 mg Oral Nightly melatonin 3 mg Oral Nightly Continuous Infusions: sodium chloride sodium chloride 20 mL/hr at 11/04/20 1320 dextrose PRN Meds:sodium chloride, acetaminophen, metoprolol, QUEtiapine, sodium chloride flush, ondansetron, potassium chloride, potassium chloride, magnesium sulfate, calcium gluconate, glucose, dextrose, glucagon (rDNA), dextrose, polyethylene glycol Diagnostic Workup: I reviewed pertinent Laboratory results, Radiographic results, and Other Clinical Notes at the timeof today's encounter. BMP: Recent Labs 11/05/20 0012 11/06/20 0417 11/07/20 0011 NA 138 138 135 K 3.8 4.1 3.7 CL 109* 105 105 CO2 23 25 28 BUN 13 16 18 CREATININE 0.60 0.56 0.40* GLUCOSE 96 130* 120* Glucose: Recent Labs 11/05/20 0653 11/05/20 0823 11/05/20 1353 11/06/20 0017 11/06/20 0409 11/06/20 1123 11/06/20 1756 11/07/20 0915 POCGLU 80 98 97 140* 138* 100 127* 73 HgbA1C: No results for input(s): LABA1C in the last 72 hours. Hepatic: No results for input(s): ALKPHOS, ALT, AST, PROT, BILITOT, BILIDIR, LABALBU in the last 72hours. Lipids: No results for input(s): CHOL, TRIG, HDL, LDLCALC in the last 72 hours. Invalid input(s): LDL TSH: Lab Results Component Value Date TSH 0.425 (L) 10/31/2020 History/Other: Past Medical History: Past Medical History: Diagnosis Date CAD (coronary artery disease) Hyperlipidemia Hypertension Iron deficiency anemia Neuropathy Past Surgical History: Past Surgical History: Procedure Laterality Date APPENDECTOMY 1952 CARDIAC CATHETERIZATION 10/30/2020 CARDIAC CATHETERIZATION 2006 1 stent to LAD Allergy(ies): Allergies Allergen Reactions Aspartame Beef-Derived Products Contrast [Iodides] Diazepam Other (See Comments) Nightmares. Would not want to take this again. Noted years ago, never charted, never mentioned Food severe stomach discomfort. Iodine Lactose Diarrhea Other Diarrhea additives, fillers, thickeners, colors etc Pork Allergy Saccharin Sucralose Tomato Soy Allergy Nausea And Vomiting Family History: History reviewed. No pertinent family history. Social History: Social History Tobacco Use Smoking status: Never Smoker Smokeless tobacco: Never Used Vaping Use Vaping Use: Never used Substance Use Topics Alcohol use: Not Currently Drug use: Never I spent 15 minutes with the pt which involved more than 51% of the time in coordination of care, medical evaluation, review of records, and/or counseling of the pt regarding his/her condition/diseasestate/prognosis on the date of this note. * Opal Baker - 11/07/2020 9:37 AM EDT Speech Language Pathology Facility/Department: [facility] Dysphagia Treatment Note NAME: Lavelle Rueda : 1945 Patient Diagnosis(es): Patient Active Problem List Diagnosis Disease NSTEMI (non-ST elevated myocardial infarction) (HCC) Stress hyperglycemia S/P CABG (coronary artery bypass graft) Encephalopathy acute Allergies: Allergies Allergen Reactions Aspartame Beef-Derived Products Contrast [Iodides] Diazepam Other (See Comments) Nightmares. Would not want to take this again. Noted years ago, never charted, never mentioned Food severe stomach discomfort. Iodine Lactose Diarrhea Other Diarrhea additives, fillers, thickeners, colors etc Pork Allergy Saccharin Sucralose Tomato Soy Allergy Nausea And Vomiting Onset Date: 10/31/2020 Oxygen Level: O2 Device: Nasal cannula Liters of Oxygen: 3 L Current Diet Level: Recommended Puree with Thin Liquids; diet was not ordered and patient has been NPO; PO meds in puree Pain: RN managing S: Patient is alert and cooperative. Patient sitting upright in chair. Less dysphonic as previouslyobserved. O: PO trials; potential for diet upgrade. A: Assessed the swallow with lemon ice, applesauce, cracker, and water via straw. Bolus formation and AP transit were clinically adequate. Mastication of the cracker was slowed but complete. Patient achieved oral clearance. Laryngeal excursion is clinically adequate. There is an inconsistent wet vocal quality following water, cracker, and lemon ice trials, which improves with patient throat clear. Patient reports that she coughs a lot at home but the cough is not productive. A delayed dry cough was observed x1 following single straw sip of thin liquid. Following the cough, as the session progressed, patient demonstrated a more persistent throat clear. Question potential for incomplete pharyngeal clearance, which can not be directly evaluated at the bedside. Will request modified barium swallow. [] Goal met [x] Progressing as expected [] Progressing slower than expected [] Medical status inhibits participation [] Goals not addressed this session [] Goals revised this session [] Unable to show any progress towards functional goals [] Progress towards functional goal is gradual / fair P: Recommend continuation of NPO except PO meds in puree. An instrumental swallowing evaluation is requested in order to directly examine the pharyngeal phase of the swallow pattern and ensure the patient is not experiencing airway penetration. Time Out: 0900 Session Time: 20 minutes A KN95 mask and gloves were worn throughout this session. * Ama Whipple, ADJUNCT INSTRUCTOR IN ECONOMICS - AGENT CONTRACT CLERK - 11/07/2020 6:04 AM EDT Images from the original note were not included. Cardiothoracic Surgery Progress Note PATIENT NAME: Lavelle Rueda TODAY'S DATE: 11/07/2020 Surgery/Procedure: cabg x 4 Sbxr-unt-ehp, Ao-om1-pda sequential w/ rsvg, Ao-ramus w/ rsvg, evh left leg Interval History: POD #3: VSS overnight, on 3L NC. Hgb- 11.1 (stable). Patient answering orientation questions correctly this am but still confused to situation. I&Os: UO: 443/ 24hrs -1.4 L Last recorded/verified vitals in [facility] BP 113/67 Pulse 75 Temp 99 F (37.2 C) (Bladder) Resp 18 Ht 5' 6 (1.676 m) Wt 149 lb 0.5 oz (67.6 kg) SpO2 95% BMI 24.05 kg/m Recent Labs 11/04/20 1629 11/05/20 0012 11/06/20 0417 11/07/20 0011 WBC 9.2 7.6 7.5 8.1 HGB 8.8* 7.9* 11.6* 11.1* PLT 146 144 139* 153 INR 1.2* -- -- -- NA -- 138 138 135 K -- 3.8 4.1 3.7 CREATININE -- 0.60 0.56 0.40* Physical Exam Constitutional: Comments: OOB, answering orientation questions appropriately Cardiovascular: Rate and Rhythm: Normal rate and regular rhythm. Heart sounds: Normal heart sounds. Pulmonary: Effort: Pulmonary effort is normal. Breath sounds: Examination of the right-lower field reveals decreased breath sounds. Examination ofthe left-lower field reveals decreased breath sounds. Decreased breath sounds present. Abdominal: Palpations: Abdomen is soft. Tenderness: There is no abdominal tenderness. Genitourinary: Comments: Miller Catheter to straight drain Skin: General: Skin is warm and dry. Capillary Refill: Capillary refill takes less than 2 seconds. Comments: Surgical Incisions: well approximated; clean dry with no drainage noted. Surrounding skin no redness, warmth, or signs of infection noted. Psychiatric: Behavior: Behavior normal. Behavior is cooperative. Current Outpatient Medications Medication Instructions aspirin 81 mg, Oral, DAILY clorazepate (TRANXENE) 3.75 mg, Oral, 4 TIMES DAILY PRN ferrous sulfate (IRON 325) 325 mg, Oral, DAILY metoprolol tartrate (LOPRESSOR) 25 mg, Oral, 2 TIMES DAILY nortriptyline (PAMELOR) 25 mg, Oral, 5 TIMES DAILY vitamin D (CHOLECALCIFEROL) 50,000 Units, Oral, WEEKLY ASSESSMENT/PLAN: MV CAD s/p CABG Acute delirium, ? Benzo withdrawal- psych following, wean off nortriptyline, Ativan BID HTN- BB & amlodipine Speech eval yesterday-Puree diet including thin liquids, meds in puree Chest xray wet- 40mg Lasix x1 Stop IVF MOM 60 x1 Cardiac Core Medications: ASA, Statin and BB Post operative pulm management: Normal Post-Operative Course Lines: R IJ 11/05, Miller 11/05 EF: 65% Blood Conservation: 11/04- Plts & 2 units PRBC. DVT prophylaxis: TEDs, SCDs and Heprin SQ Treatment Team: Primary Care Provider: No primary care provider on file. Cardiology: Dr. Goldman CCM:Dr. Serrano Endocrinology: Dr. Mcdonnell Psychiatry: Dr. Goodwin Disclaimer INFORMED CONSENT:The nature and purpose of the proposed treatment or procedure have been discussed.The risks and benefits of the proposed treatment or procedures have been reviewed. Alternatives have been reviewed in addition to the risks and benefits of not receiving treatments or undergoing procedures. Pursuant to this discussion, the patient agrees to undergo the proposed treatment or procedure. Captured images seen in this note from are not a substitute for a comprehensive interpretation of the entire data set as reflected by the interpreting physician with regard to radiology, echocardiography, and other diagnostic images. This note may have been dictated using [employer] Pow[employer] Practice Edition 2.6 and/or [employer] Voice Recognition Feature. The document was proofread, however unrecognized voice recognition antisqueak filler errors may be present. * Franchesca Mcdonnell MD - 11/06/2020 12:52 PM EDT Images from the original note were not included. Department of Internal Medicine Division of Endocrinology, Diabetes, & Metabolism Endocrinology Note Patient Name: Lavelle Rueda : 1945 AGE: 75 y.o. Room/Bed: [place] [address] Admission Date: 10/31/2020 1:25 AM Consult Date: 11/04/20 Visit Date: 11/06/2020 Reason for Endocrine Consult: post op heart surgery Provider/Team Requesting Consult: Stephanie PCP: No primary care provider on file. Outpt Senior Health Consultant: no ASSESSMENT: Stress hyperglycemia CAD s/p CABG x4 Acute encephalopathy, resolving PLAN: The inpt antihyperglycemic regimen will be as follows: Change to Humalog low dose SSI TID Monitor BG If hypoglycemia were to occur it should be treated per hospital protocol. Diet recommendation: carb controlled 4 carb choices, no juice on trays ANTICIPATED ENDOCRINE HOME GOING RECOMMENDATIONS: Optimized for Discharge from Endocrine standpoint: No Home Going Endocrine Rx Recommendations-- None Outpt Follow Up-- PCP SUBJECTIVE/HPI: Pt being followed for: postop hyperglycemia History of DM: no Type of DM: Onset of DM: Home DM Medication Regimen: none DM control (last A1c/glucose data): Lab Results Component Value Date LABA1C 5.3 10/31/2020 Lab Results Component Value Date EAG 105 10/31/2020 Cardiac Surgery Procedure: cabg x 4 Eftr-jlp-gyu, Ao-om1-pda sequential w/ rsvg, Ao-ramus w/ rsvg Procedure Date: 11/04/2020 - she is more alert and oriented today - just started on a diet - denies new complaints - BG 138-100 today, only on SSI and has not required any doses since yesterday ROS negative except for those mentioned in HPI. OBJECTIVE: Vitals: 11/06/20 0900 11/06/20 1000 11/06/20 1100 11/06/20 1200 BP: (!) 143/84 (!) 146/78 138/76 (!) 148/108 Pulse: 76 70 71 70 Resp: Temp: 98.2 F (36.8 C) TempSrc: Oral SpO2: (!) 69% 98% (!) 89% Weight: Height: Physical Exam Vitals reviewed. Constitutional: General: She is not in acute distress. Appearance: She is well-developed. HENT: Head: Normocephalic. Eyes: General: No scleral icterus. Conjunctiva/sclera: Conjunctivae normal. Cardiovascular: Rate and Rhythm: Normal rate and regular rhythm. Pulses: Normal pulses. Heart sounds: Normal heart sounds. No murmur heard. Comments: +sternal incision intact +chest tubes Pulmonary: Effort: Pulmonary effort is normal. No respiratory distress. Breath sounds: No wheezing, rhonchi or rales. Abdominal: General: There is no distension. Palpations: Abdomen is soft. There is no mass. Tenderness: There is no abdominal tenderness. Musculoskeletal: General: No swelling, tenderness or deformity. Cervical back: Neck supple. Lymphadenopathy: Cervical: No cervical adenopathy. Skin: General: Skin is warm and dry. Findings: No erythema or rash. Neurological: Mental Status: She is alert. Motor: No tremor. Comments: More responsive, oriented 24 hour intake/output: Intake/Output Summary (Last 24 hours) at 11/06/2020 1252 Last data filed at 11/06/2020 1102 Gross per 24 hour Intake 2106.5 ml Output 3000 ml Net -893.5 ml Diet: Diet NPO Medications (as per EMR): HomeMeds: Prior to Admission medications Medication Sig Start Date End Date Taking? Authorizing Provider nortriptyline (PAMELOR) 25 MG capsule Take 25 mg by mouth 5 times daily 05/03/20 Yes Historical Provider, metoprolol tartrate (LOPRESSOR) 25 MG tablet Take 25 mg by mouth 2 times daily 12/14/19 Yes Historical Provider, ferrous sulfate (IRON 325) 325 (65 Fe) MG tablet Take 325 mg by mouth daily 06/12/20 Yes Historical Provider, vitamin D (CHOLECALCIFEROL) 85030 UNIT CAPS Take 50,000 Units by mouth once a week 12/14/19 Yes Historical Provider, aspirin 81 MG EC tablet Take 81 mg by mouth daily 06/12/20 Yes Historical Provider, clorazepate (TRANXENE) 3.75 MG tablet Take 3.75 mg by mouth 4 times daily as needed. 08/21/20 02/17/21 Yes Historical Provider, Scheduled Meds: lidocaine 1 patch Transdermal Daily heparin (porcine) 5,000 Units Subcutaneous BID aspirin 325 mg Oral Daily LORazepam 0.5 mg Intravenous Q12H pantoprazole 40 mg Oral QAM AC LORazepam 0.5 mg Oral BID metoprolol tartrate 25 mg Oral BID amLODIPine 5 mg Oral Daily insulin lispro 0-6 Units Subcutaneous Q6H acetaminophen 1,000 mg Oral Q8H chlorhexidine 15 mL Mouth/Throat BID mupirocin Nasal BID polyethylene glycol 17 g Oral Daily sennosides-docusate sodium 2 tablet Oral Nightly ipratropium-albuterol 1 ampule Inhalation Q4H WA sodium chloride flush 5-40 mL Intravenous 2 times per day nortriptyline 50 mg Oral BID atorvastatin 80 mg Oral Nightly melatonin 3 mg Oral Nightly Continuous Infusions: dextrose 5% in lactated ringers 50 mL/hr at 11/06/20 1118 sodium chloride sodium chloride 20 mL/hr at 11/04/20 1320 dextrose dexmedetomidine Stopped (11/06/20 0902) PRN Meds:sodium chloride, acetaminophen, metoprolol, QUEtiapine, sodium chloride flush, ondansetron, potassium chloride, potassium chloride, magnesium sulfate, calcium gluconate, glucose, dextrose, glucagon (rDNA), dextrose, polyethylene glycol Diagnostic Workup: I reviewed pertinent Laboratory results, Radiographic results, and Other Clinical Notes at the timeof today's encounter. BMP: Recent Labs 11/04/20 1150 11/05/20 0012 11/06/20 0417 NA 140 138 138 K 4.1 3.8 4.1 CL 111* 109* 105 CO2 21* 23 25 BUN 13 13 16 CREATININE 0.60 0.60 0.56 GLUCOSE 103* 96 130* Glucose: Recent Labs 11/05/20 0502 11/05/20 0610 11/05/20 0653 11/05/20 0823 11/05/20 1353 11/06/20 0017 11/06/20 0409 11/06/20 1123 POCGLU 84 72 80 98 97 140* 138* 100 HgbA1C: No results for input(s): LABA1C in the last 72 hours. Hepatic: No results for input(s): ALKPHOS, ALT, AST, PROT, BILITOT, BILIDIR, LABALBU in the last 72hours. Lipids: No results for input(s): CHOL, TRIG, HDL, LDLCALC in the last 72 hours. Invalid input(s): LDL TSH: Lab Results Component Value Date TSH 0.425 (L) 10/31/2020 History/Other: Past Medical History: Past Medical History: Diagnosis Date CAD (coronary artery disease) Hyperlipidemia Hypertension Iron deficiency anemia Neuropathy Past Surgical History: Past Surgical History: Procedure Laterality Date APPENDECTOMY 1952 CARDIAC CATHETERIZATION 10/30/2020 CARDIAC CATHETERIZATION 2005 1 stent to LAD Allergy(ies): Allergies Allergen Reactions Aspartame Beef-Derived Products Contrast [Iodides] Diazepam Other (See Comments) Nightmares. Would not want to take this again. Noted years ago, never charted, never mentioned Food severe stomach discomfort. Iodine Lactose Diarrhea Other Diarrhea additives, fillers, thickeners, colors etc Pork Allergy Saccharin Sucralose Tomato Soy Allergy Nausea And Vomiting Family History: History reviewed. No pertinent family history. Social History: Social History Tobacco Use Smoking status: Never Smoker Smokeless tobacco: Never Used Vaping Use Vaping Use: Never used Substance Use Topics Alcohol use: Not Currently Drug use: Never I spent 25 minutes with the pt which involved more than 51% of the time in coordination of care, medical evaluation, review of records, and/or counseling of the pt regarding his/her condition/diseasestate/prognosis on the date of this note. * Medina Higgins, PT - 11/06/2020 12:15 PM EDT Physical Therapy Facility/Department: [facility] Initial Assessment NAME: Lavelle Rueda : 1945 Date of Service: 11/06/2020 Discharge Recommendations: IP Rehab PT Equipment Recommendations Equipment Needed: No Other: she does have a walker at home if she needs it. Assessment Body structures, Functions, Activity limitations: Decreased functional mobility ;Decreased cognition;Decreased endurance;Decreased sensation;Decreased coordination;Decreased strength Assessment: Patient is confused. She got to the chair today with moderate assist and maximal verbalcues. She followed direction well, except for sternal precautions. She keeps pulling herself up with her arms. She was encouraged to hold the pillow instead. Currently at IP rehab level for discharge. Treatment Diagnosis: decreased functional mobility and independence. Prognosis: Good Decision Making: Medium Complexity PT Education: PT Role;Plan of Care Barriers to Learning: cognition REQUIRES PT FOLLOW UP: Yes Activity Tolerance Activity Tolerance: Patient limited by fatigue;Patient limited by endurance;Patient limited by cognitive status Patient Diagnosis(es): There were no encounter diagnoses. has a past medical history of CAD (coronary artery disease), Hyperlipidemia, Hypertension, Iron deficiency anemia, and Neuropathy. has a past surgical history that includes Cardiac catheterization (10/30/2020); Cardiac catheterization (2005); and Appendectomy (1953). Restrictions Restrictions/Precautions Restrictions/Precautions: Weight Bearing, Modified Diet, Fall Risk Required Braces or Orthoses?: No Upper Extremity Weight Bearing Restrictions Right Upper Extremity Weight Bearing: (sternal precautions) Left Upper Extremity Weight Bearing: (sternal precautions) Position Activity Restriction Sternal Precautions: No Pushing, No Pulling, 10# Lifting Restrictions Sternal Precautions: YES! Other position/activity restrictions: She is not yet understanding her sternal precautions. She tends to keep her eyes shut. Vision/Hearing Vision: Impaired Vision Exceptions: Wears glasses at all times Hearing: Within functional limits Subjective General Chart Reviewed: Yes Patient assessed for rehabilitation services?: Yes Response To Previous Treatment: Not applicable Family / Caregiver Present: No Diagnosis: s/p NSTEMI and s/p CABG x 4 on 11/04/20 Follows Commands: Impaired Other (Comment): confused, required precedex and restraints last night because she kept pulling at her lines and tubes. Yesterday she pulled out her CT. Per nurse, she is okay to get up to the chair.Chair alarm on chair and activated. General Comment Comments: PT wore surgical mask and gloves for this evaluation. Subjective Subjective: Patient requires a lot of verbal cues to work with therapy. She tends to keep her eyes closed Pain Screening Patient Currently in Pain: No Vital Signs Patient Currently in Pain: No Pre Treatment Pain Screening Intervention List: Patient able to continue with treatment Orientation Orientation Overall Orientation Status: Impaired Orientation Level: Oriented to person;Oriented to place Social/Functional History Social/Functional History Lives With: (Pt. states her boyfriend lives there.) Type of Home: House Home Layout: Two level, Able to Live on Main level with bedroom/bathroom Home Access: Stairs to enter with rails Entrance Stairs - Number of Steps: 3 Bathroom Shower/Tub: Walk-in shower Bathroom Toilet: Standard Bathroom Equipment: Grab bars in shower, Shower chair Bathroom Accessibility: Accessible Home Equipment: (has FWW if needed) Receives Help From: Family, Friend(s) ADL Assistance: Independent Homemaking Assistance: Independent Homemaking Responsibilities: Yes Ambulation Assistance: Independent Transfer Assistance: Independent Active Chemicals Distiller: Yes Mode of Transportation: Car Occupation: Retired Cognition Objective Observation/Palpation Posture: Good (good -) Observation: 149 # AROM RLE (degrees) RLE AROM: WNL AROM LLE (degrees) LLE AROM : WNL Strength RLE Comment: 4/5 Strength LLE Comment: 4/5 Tone RLE RLE Tone: Normotonic Tone LLE LLE Tone: Normotonic Motor Control Gross Motor?: WFL Sensation Overall Sensation Status: (neuropathy in feet) Bed mobility Rolling to Left: Minimal assistance Rolling to Right: Minimal assistance Supine to Sit: Moderate assistance Scooting: Moderate assistance Transfers Sit to Stand: Minimal Assistance Stand to sit: Minimal Assistance Bed to Chair: Moderate assistance Ambulation Ambulation?: No Stairs/Curb Stairs?: No Balance Posture: Good Sitting - Static: Good Sitting - Dynamic: Good Standing - Static: Fair Standing - Dynamic: Fair Exercises Hip Flexion: x 5 Hip Extension/Leg Presses: x 5 Knee Long Arc Quad: x 5 Ankle Pumps: x 5 Comments: Patient requires maximal cues for following sternal precautions, maintaining safety in transfer Other exercises Other exercises?: Yes Other exercises 1: P&C exercises # 1-3 x 5 reps Other exercises 2: deep breathing x 10 reps Other exercises 3: cough x 3 without sputum production Plan Plan Times per week: 6-7 Times per day: Daily Plan weeks: 2 Current Treatment Recommendations: Strengthening, Transfer Training, Endurance Training, Gait Training, Balance Training, Functional Mobility Training Safety Devices Type of devices: Left in chair, Chair alarm in place, Call light within reach, All fall risk precautions in place, Nurse notified Restraints Initially in place: No G-Code OutComes Score AM-PAC Score [facility] Inpatient Mobility Raw Score : 9 (11/06/20 115) AM-PAC Inpatient T-Scale Score : 30.55 (11/06/201152) Mobility Inpatient CMS 0-100% Score: 81.38 (11/06/20 1153) Mobility Inpatient CMS G-Code Modifier : CM (11/06/20 [facility]) Goals Short term goals Time Frame for Short term goals: 2 weeks Short term goal 1: bed mobility indep Short term goal 2: transfers indep. Short term goal 3: independent managing secretions Short term goal 4: independent performing P&C exercises and their progression Short term goal 5: independent following walking program and its progression, rating her own RPE and adjusting as she goes. Short term goal 6: follows sternal precautions all of the time. Patient Goals Patient goals : none stated Therapy Time Individual Concurrent Group Co-treatment Time In 1125 Time Out 1153 Minutes 28 Timed Code Treatment Minutes: 12 Minutes Medina Higgins PT * Opal Baker - 11/06/2020 11:05 AM EDT Speech Language Pathology Facility/Department: [facility] Dysphagia Treatment Note NAME: Lavelle Rueda : 1945 Patient Diagnosis(es): Patient Active Problem List Diagnosis Disease NSTEMI (non-ST elevated myocardial infarction) (HCC) Stress hyperglycemia S/P CABG (coronary artery bypass graft) Encephalopathy acute Allergies: Allergies Allergen Reactions Aspartame Beef-Derived Products Contrast [Iodides] Diazepam Other (See Comments) Nightmares. Would not want to take this again. Noted years ago, never charted, never mentioned Food severe stomach discomfort. Iodine Lactose Diarrhea Other Diarrhea additives, fillers, thickeners, colors etc Pork Allergy Saccharin Sucralose Tomato Soy Allergy Nausea And Vomiting Onset Date: 10/31/2020 Oxygen Level: O2 Device: Nasal cannula Liters of Oxygen: 3 L Current Diet Level: NPO; PO meds in puree Compensatory Techniques []Chin tuck []Small bolus []Alternate bites/ sips []No straws []Liquids by teaspoon only []Swallow x 2 with each bolus []Alternate lemon ice between each bolus [x]Position patient upright []Other Pain:RN managing S: Patient is alert and cooperative. Reports being exhausted and is dysphonic. When asked if patient has an appetite she reports I am willing. O: PO trials; assess potential for diet upgrade. A: Posterior tongue and velum movement are reduced but slightly improve after PO trials. Assessed the swallow with lemon ice, applesauce, saltine cracker, and water via teaspoon and straw. Patient accepted all boli. Bolus formation and transit is timely. Mastication of very small saltine bolus x2 is prolonged but complete. There is a strong dry cough following small dry cracker bolus. Patient achieves oral clearance. Laryngeal excursion is clinically adequate. There is no audible quality to theswallow or wet vocal quality with thin liquids. Patient was permitted to drink freely from a straw,but took small sips and did not drink continuously. [] Goal met [x] Progressing as expected [] Progressing slower than expected [] Medical status inhibits participation [] Goals not addressed this session [] Goals revised this session [] Unable to show any progress towards functional goals [] Progress towards functional goal is gradual / fair P: Recommend a puree diet including thin liquids. PO meds in puree. Will continue the dysphagia plan of care to ensure patient safety and tolerance of recommended diet, and assess for diet upgrade. Time Out 1100 Session Time 15 minutes A KN95 mask and gloves were worn throughout this session. * Nayeli Serrano MD - 11/06/2020 6:50 AM EDT ICU Progress Note 11/06/2020 8:40 AM Subjective: Admit Date: 10/31/2020 PCP: No primary care provider on file. Interval History: Pt screaming out this am. Remains on precedex. Did sleep last night per RN. Reported coughing after drinking water last night. Diet: Diet NPO Medications: Scheduled Meds: lidocaine 1 patch Transdermal Daily heparin (porcine) 5,000 Units Subcutaneous BID aspirin 325 mg Oral Daily LORazepam 0.5 mg Intravenous Q12H pantoprazole 40 mg Oral QAM AC LORazepam 0.5 mg Oral BID metoprolol tartrate 25 mg Oral BID amLODIPine 5 mg Oral Daily insulin lispro 0-6 Units Subcutaneous Q6H acetaminophen 1,000 mg Oral Q8H chlorhexidine 15 mL Mouth/Throat BID mupirocin Nasal BID polyethylene glycol 17 g Oral Daily sennosides-docusate sodium 2 tablet Oral Nightly ipratropium-albuterol 1 ampule Inhalation Q4H WA sodium chloride flush 5-40 mL Intravenous 2 times per day nortriptyline 50 mg Oral BID atorvastatin 80 mg Oral Nightly melatonin 3 mg Oral Nightly Continuous Infusions: dextrose 5% in lactated ringers sodium chloride sodium chloride 20 mL/hr at 11/04/20 1320 dextrose dexmedetomidine 0.3 mcg/kg/hr (11/06/20 0756) CBC: Recent Labs 11/04/20 1629 11/05/20 0012 11/06/20 0417 WBC 9.2 7.6 7.5 HGB 8.8* 7.9* 11.6* PLT 146 144 139* BMP: Recent Labs 11/04/20 1150 11/05/20 0012 11/06/20 0417 NA 140 138 138 K 4.1 3.8 4.1 CL 111* 109* 105 CO2 21* 23 25 BUN 13 13 16 CREATININE 0.60 0.60 0.56 GLUCOSE 103* 96 130* INR: Recent Labs 11/04/20 1629 INR 1.2* Objective: Vitals: BP 138/81 Pulse 66 Temp 98 F (36.7 C) (Oral) Resp 20 Ht 5' 6 (1.676 m) Wt 149 lb0.5 oz (67.6 kg) SpO2 100% BMI 24.05 kg/m Physical Exam: General Appearance: []WDWN []Obese []Cachectic [x]Thin []ill Skin: Temperature [x]Warm []Cool Rash []Yes [x]No Tattoo(s) []Yes [x]No HEENT: Pupils round and react [x]Yes []No Sclera []Icteric [x]Non-Icteric Conjunctiva []Injected [x]Non-Injected Pinnae [x]Normal []Other Dentitian [x][place] Teeth []Dentures []Poor dentition []Edentulous Oral Mucosa [x][place] [x]Moist []Dry Oral ETT []Present [x]Absent Neck: Trachea midline [x]Yes []No Thyromegaly []Yes [x]No Crepitus []Present [x]Absent Jvd []Present [x]Absent Lungs: [x]Clear []Crackles []Wheezes []Rhonchi Respiratory effort []Labored [x]Non-Labored Heart: Rate [x]Regular []Irregular []Tachycardia []Bradycardia Rhythm [x]Regular []Irregular Murmur []Present [x]Absent Peripheral Edema []Present [x]Absent Abdomen: [x]Soft Bowel Sounds [x]Present []Absent []Diminished []Tender [x]Non-Tender []Distended [x]Non-distended Hernia []Present []Absent Organomegaly []Present [x]Absent []Unable to assess due to size []Scar Extremities: Cyanosis []Present [x]Absent Capillary Refill [x]<3 sec []>3 sec [place] ([x]RUE [x]RLE [x]LUE [x]LLE) Neurologic: [place] []Yes [x]No Corneal reflexes []Present []Absent Plantar reflexes []Up []Down []Absent Withdraws to tactile []Yes []No Follows Commands [x]Yes []No []Unresponsive to verbal []Cranial nerves grossly intact []Sensation grossly intact Psych: Alert [x]yes []no Oriented []x0 []x1 [x]x2 []x3 Affect [x]Normal []Flat []Agitated []Anxious []Calm []Sedated []NAD Assessment and Plan: 1. POD 2 CABG X 4; BP increasing this am, amlodipine, metoprolol, ASA, Statin 2. Encephalopathy: metabolic, on precedex, attempt to wean and mobilize patient today 3. Post op pulmonary management: pt has not cooperated with pulmonary toilet, hopefully will improve if able to mobilize patient. 4. Anemia: received transfusions 5. DVT/GI proh Patient Active Problem List: Disease NSTEMI (non-ST elevated myocardial infarction) (HCC) Stress hyperglycemia S/P CABG (coronary artery bypass graft) Encephalopathy acute NAYELI SERRANO MD, MD * Ama Whipple, ADJ[employer]CT INSTRUCTOR IN E[employer]OMICS - AGENT CONTRACT CLERK - 11/06/2020 6:31 AM EDT Images from the original note were not included. Cardiothoracic Surgery Progress Note PATIENT NAME: Lavelle Rueda TODAY'S DATE: 11/06/2020 Surgery/Procedure: cabg x 4 Mnry-ixf-xcy, Ao-om1-pda sequential w/ rsvg, Ao-ramus w/ rsvg, evh left leg Interval History: POD #2: VSS overnight, on 4L NC. Precedex gtt overnight (0.7mcg/kg/hr) for acute delirium, ? Benzo withdrawal. I&Os: Last recorded/verified vitals in [facility] BP 108/72 Pulse 67 Temp 97.5 F (36.4 C) (Oral) Resp 17 Ht 5' 6 (1.676 m) Wt 149 lb 0.5 oz (67.6 kg) SpO2 97% BMI 24.05 kg/m Recent Labs 11/04/20 1150 11/04/20 1629 11/05/20 0012 11/06/20 0417 WBC 8.7 9.2 7.6 7.5 HGB 7.8* 8.8* 7.9* 11.6* PLT 131* 146 144 139* INR -- 1.2* -- -- NA 140 -- 138 138 K 4.1 -- 3.8 4.1 CREATININE 0.60 -- 0.60 0.56 Physical Exam Constitutional: Comments: Oriented to self and place Still calling out intermittently, lethargic this morning Cardiovascular: Rate and Rhythm: Normal rate and regular rhythm. Heart sounds: Normal heart sounds. Pulmonary: Effort: Pulmonary effort is normal. Breath sounds: Examination of the right-lower field reveals decreased breath sounds. Examination ofthe left-lower field reveals decreased breath sounds. Decreased breath sounds present. Abdominal: Palpations: Abdomen is soft. Tenderness: There is no abdominal tenderness. Genitourinary: Comments: Miller Catheter to straight drain Skin: General: Skin is warm and dry. Capillary Refill: Capillary refill takes less than 2 seconds. Comments: Surgical Incisions: well approximated; clean dry with no drainage noted. Surrounding skin no redness, warmth, or signs of infection noted. Psychiatric: Behavior: Behavior normal. Behavior is cooperative. Current Outpatient Medications Medication Instructions aspirin 81 mg, Oral, DAILY clorazepate (TRANXENE) 3.75 mg, Oral, 4 TIMES DAILY PRN ferrous sulfate (IRON 325) 325 mg, Oral, DAILY metoprolol tartrate (LOPRESSOR) 25 mg, Oral, 2 TIMES DAILY nortriptyline (PAMELOR) 25 mg, Oral, 5 TIMES DAILY vitamin D (CHOLECALCIFEROL) 50,000 Units, Oral, WEEKLY ASSESSMENT/PLAN: MV CAD s/p CABG Acute delirium, ? Benzo withdrawal- will wean off Precedex gtt, Ativan BID started, consult psych for eval Anxiety/depression- Nortriptyline (home med) HTN- BB & amlodipine Speech eval yesterday-NPO, okay for Meds with puree, will need modified barium swallow when able toparticipate per recommendations NPO, gently hydration ordered DC CTs today Cardiac Core Medications: ASA, Plavix and BB Post operative pulm management: Normal Post-Operative Course Lines: R IJ 11/05, Miller 11/05 EF: 65% Blood Conservation: 11/04- Plts & 2 units PRBC. DVT prophylaxis: TEDs, SCDs and Heprin SQ Treatment Team: Primary Care Provider: No primary care provider on file. Cardiology: Dr. Goldman CCM:Dr. Serrano Endocrinology: Dr. Mcdonnell Disclaimer INFORMED CONSENT:The nature and purpose of the proposed treatment or procedure have been discussed.The risks and benefits of the proposed treatment or procedures have been reviewed. Alternatives have been reviewed in addition to the risks and benefits of not receiving treatments or undergoing procedures. Pursuant to this discussion, the patient agrees to undergo the proposed treatment or procedure. Captured images seen in this note from are not a substitute for a comprehensive interpretation of the entire data set as reflected by the interpreting physician with regard to radiology, echocardiography, and other diagnostic images. This note may have been dictated using [employer] Edition 2.6 and/or [employer] [place] Voice Recognition Feature. The document was proofread, however unrecognized voice recognition antisqueak filler errors may be present. * Rupa Taylor SLP - 11/05/2020 11:03 AM EDT Speech Language Pathology Facility/Department: [facility]EDSIDE SWALLOW EVALUATION NAME: Lavelle Rueda : 1945 ADMISSION DATE: 10/31/2020 ADMITTING DIAGNOSIS: has Disease; NSTEMI (non-ST elevated myocardial infarction) (HCC); Stress hyperglycemia; S/P CABG (coronary artery bypass graft); and Encephalopathy acute on their problem list. ONSET DATE: 10/31/2020 Recent Chest Xray/CT of Chest: 11/04/2020 A single portable AP radiograph of the chest was obtained. The heart is normal in size. The mediastinal silhouette is normal. There are changes associated with recent open heart surgery. A left-sidedchest tube is present as is a mediastinal tube. There is no pneumothorax. No effusions or infiltrates are seen. There is no pleural thickening. The osseous structures are unremarkable. An ET tube andNG tube are present. The tip of the ET tube lies well above the sylvain. A right internal jugular [place] catheter is present with the tip overlying the main pulmonary artery. IMPRESSION: Postoperative changes. No acute process. 11/05/2020 Endotracheal tube and feeding tube have been removed. Right jugular [place]-Johnathon catheter, mediastinaldrain, left-sided chest tube appear unchanged. Sternotomy wires are again noted. There is mild atelectasis within the lung bases. No large pleural effusion or evidence of pneumothorax is seen. Bony structures are unremarkable. IMPRESSION: Endotracheal tube and feeding tube have been withdrawn. Mildbilateral basilar atelectasis. Date of Eval: 11/05/2020 Evaluating Therapist: Opal Baker Current Diet level: Current Diet : NPO Current Liquid Diet : NPO Primary Complaint Patient Complaint: Patient is cold. Reason for Referral: ED Notes: 10/31/2020 Lavelle Rueda is a 75 y.o. female with PMHx HTN, HLD, depression/anxiety, CAD s/p PCI and JESUS (2005), arthritis that presented to [facility] on 10/31/2020 from outside facility ([facility]) with chest pain that started yesterday afternoon. Patient states that she was eating lunch when she started having substernal chest pain, rated 8/10, nonradiating. States that she has had similar pain in her abdomen, but this is the first time having chest pain like this. Denies SOB, N/V, diaphoresis, or palpitations associated with the CP. She initially presented to [facility], blood pressure on presentation 165/70, HR 52. Labs showed WBC 8.2, hgb 14.4, plts 255, Na 142, K 3.1, Cr 0.85. Troponin 18.500. Given loading dose ASA, brilinta, started on nitro drip. Patient states that she did have some nausea/vomiting while in the ED at [facility] which has since resolved. She underwent LHC at [facility]. No intervention done at the time. She was transferred to [facility] for evaluation for CABG. Cath results/images transferred with patient, upload pending. Currently, she is hemodynamically stable, BP 156/77, HR 60, afberile, spO2 96% on RA. EKG done on admission and showing nonspecific T wave changes. Currently still having CP, rated 7/10. On nitro drip. Reports + family history of cardiac disease. Denies smoking and ETOH abuse. NSTEMI s/p C with multivessel disease Hx of CAD s/p JESUS (2005) HTN HLD Depression/anxiety Diarrhea/JAE Lavelle Rueda was referred for a bedside swallow evaluation to assess the efficiency of her swallow function, identify signs and symptoms of aspiration and make recommendations regarding safe dietary consistencies, effective compensatory strategies, and safe eating environment. Impression Dysphagia Impression : Patient presents with a mild oral and suspected pharyngeal phase dysphagia associated with posterior tongue weakness and cough with PO thin liquids. Due to overall mentation and weakness, recommend continuation of NPO except PO meds in small puree bolus. Ice chips may be prese nted sparingly under discretion of the RN. Will continue the dysphagia plan of care to attempt PO trials in order to upgrade patient diet as mentation improves and patient gains strength. Instrumental swallow evaluation may be considered in time to directly evaluate the pharyngeal phase of the patient's swallow. Treatment Plan Requires SOFT SUGAR CUTTER Intervention: Yes Duration/Frequency of Treatment: 2 weeks- 3x/week Recommended Diet and Intervention Diet Solids Recommendation: NPO Liquid Consistency Recommendation: NPO (ice chips in moderation under RN discretion) Recommended Form of Meds: Meds in puree Recommendations: Modified barium swallow study;Dysphagia treatment Treatment/Goals Long-term Goals Timeframe for Long-term Goals: 2 weeks Dysphagia Goals: The patient will tolerate recommended diet without observed clinical signs of aspiration;The patient will tolerate instrumental swallowing procedure General Chart Reviewed: Yes Behavior/Cognition: Confused;Lethargic O2 Device: Nasal cannula Liters of Oxygen: 4 L Follows Directions: Simple Dentition: Adequate Patient Positioning: Upright in bed Baseline Vocal Quality: Weak Volitional Cough: Weak Consistencies Administered: Ice Chips;Lemon Ice;Thin - teaspoon, straw;Dysphagia Pureed (Dysphagia I) Oral Motor Deficits Oral/Motor Lingual Strength: Reduced posterior tongue strength against applied resistance. Oral Phase Dysfunction Oral Phase Oral Phase - Comment: Patient was administerd lemon ice, applesauce, and water via teaspoon and straw. Patient was receptive to and demonstrated awareness of all boli. Bolus formation and AP transit were within functional limits. Patient achieved oral clearance. Question adequate oral bolus controlis H2O via straw. Indicators of Pharyngeal Phase Dysfunction Pharyngeal Phase Pharyngeal: Laryngeal excursion was clinically adequate. There was a weak wet cough following strawsip of thin liquid. Suspect early bolus entry into the pharynx vs incomplete airway protection. Patient also had a cough after several boli of applesauce. Question of oral debris as a result of recent intubation as a cause for the cough or potential accumulating pharyngeal residue. Posterior tongueweakness observed during oral motor examination. Prognosis Prognosis Prognosis for safe diet advancement: good Education Patient Education: Patient altered mental status- Spoke with the RN Safety Devices in place: Yes Therapy Time SOFT SUGAR CUTTER Individual Minutes Time In: 1030 Time Out: 1045 Minutes: 15 SOFT SUGAR CUTTER Total Treatment Time Total Treatment Time: 15 Opal Baker 11/05/2020 11:09 AM Rupa Taylor MS, CCC/SOFT SUGAR CUTTER A [id number] mask and gloves were worn throughout this session. * Franchesca Mcdonnell MD - 11/05/2020 10:49 AM EDT Images from the original note were not included. Department of Internal Medicine Division of Endocrinology, Diabetes, & Metabolism Endocrinology Note Patient Name: Lavelle Rueda : 1945 AGE: 75 y.o. Room/Bed: [place] [address] Admission Date: 10/31/2020 1:25 AM Consult Date: 11/04/20 Visit Date: 11/05/2020 Reason for Endocrine Consult: post op heart surgery Provider/Team Requesting Consult: Stephanie PCP: No primary care provider on file. Outpt Senior Health Consultant: no ASSESSMENT: Stress hyperglycemia CAD s/p CABG x4 Acute encephalopathy PLAN: The inpt antihyperglycemic regimen will be as follows: Discontinue insulin drip Start Humalog low dose SSI QAC if eating or Q6 if NPO Monitor BG If hypoglycemia were to occur it should be treated per hospital protocol. Diet recommendation: carb controlled 4 carb choices, no juice on trays - if able to eat ANTICIPATED ENDOCRINE HOME GOING RECOMMENDATIONS: Optimized for Discharge from Endocrine standpoint: No Home Going Endocrine Rx Recommendations-- None Outpt Follow Up-- PCP SUBJECTIVE/HPI: Pt being followed for: postop hyperglycemia History of DM: no Type of DM: Onset of DM: Home DM Medication Regimen: none DM control (last A1c/glucose data): Lab Results Component Value Date LABA1C 5.3 10/31/2020 Lab Results Component Value Date EAG 105 10/31/2020 Cardiac Surgery Procedure: cabg x 4 Grec-pfe-wjs, Ao-om1-pda sequential w/ rsvg, Ao-ramus w/ rsvg Procedure Date: 11/04/2020 - pt extubated - she has been very confused; she pulled R chest CT - now in soft restraints - speech just evaluated pt - BG 72-98 today, has been off insulin drip since 3AM ROS negative except for those mentioned in HPI. OBJECTIVE: Vitals: 11/05/20 0650 11/05/20 0700 11/05/20 0842 11/05/20 0850 BP: (!) 145/75 (!) 89/54 101/65 Pulse: 85 90 89 Resp: 25 20 18 Temp: 98.5 F (36.9 C) TempSrc: SpO2: 99% 94% Weight: Height: Physical Exam Vitals reviewed. Constitutional: General: She is not in acute distress. Appearance: She is well-developed. HENT: Head: Normocephalic and atraumatic. Eyes: General: No scleral icterus. Conjunctiva/sclera: Conjunctivae normal. Cardiovascular: Rate and Rhythm: Normal rate and regular rhythm. Pulses: Normal pulses. Heart sounds: Normal heart sounds. No murmur heard. Comments: +sternal incision intact +chest tubes Pulmonary: Effort: Pulmonary effort is normal. No respiratory distress. Breath sounds: No wheezing, rhonchi or rales. Abdominal: General: There is no distension. Palpations: Abdomen is soft. There is no mass. Tenderness: There is no abdominal tenderness. Musculoskeletal: General: No swelling, tenderness or deformity. Cervical back: Neck supple. Comments: +soft restraints Lymphadenopathy: Cervical: No cervical adenopathy. Skin: General: Skin is warm and dry. Findings: No erythema or rash. Neurological: Mental Status: She is alert. She is disoriented. Motor: No tremor. 24 hour intake/output: Intake/Output Summary (Last 24 hours) at 11/05/2020 1049 Last data filed at 11/05/2020 0700 Gross per 24 hour Intake 3451 ml Output 1702 ml Net 1749 ml Diet: Diet NPO Medications (as per EMR): HomeMeds: Prior to Admission medications Medication Sig Start Date End Date Taking? Authorizing Provider nortriptyline (PAMELOR) 25 MG capsule Take 25 mg by mouth 5 times daily 05/03/20 Yes Historical Provider, metoprolol tartrate (LOPRESSOR) 25 MG tablet Take 25 mg by mouth 2 times daily 12/14/19 Yes Historical Provider, ferrous sulfate (IRON 325) 325 (65 Fe) MG tablet Take 325 mg by mouth daily 06/12/20 Yes Historical Provider, vitamin D (CHOLECALCIFEROL) 53820 UNIT CAPS Take 50,000 Units by mouth once a week 12/14/19 Yes Historical Provider, aspirin 81 MG EC tablet Take 81 mg by mouth daily 06/12/20 Yes Historical Provider, clorazepate (TRANXENE) 3.75 MG tablet Take 3.75 mg by mouth 4 times daily as needed. 08/21/20 02/17/21 Yes Historical Provider, Scheduled Meds: lidocaine 1 patch Transdermal Daily ketorolac 15 mg Intravenous Q6H heparin (porcine) 5,000 Units Subcutaneous BID aspirin 325 mg Oral Daily LORazepam 0.5 mg Intravenous Q12H [START ON 11/06/2020] pantoprazole 40 mg Oral QAM AC LORazepam 0.5 mg Oral BID metoprolol tartrate 25 mg Oral BID amLODIPine 5 mg Oral Daily acetaminophen 1,000 mg Oral Q8H chlorhexidine 15 mL Mouth/Throat BID mupirocin Nasal BID polyethylene glycol 17 g Oral Daily sennosides-docusate sodium 2 tablet Oral Nightly ceFAZolin (ANCEF) IVPB 2,000 mg Intravenous Q8H ipratropium-albuterol 1 ampule Inhalation Q4H WA sodium chloride flush 5-40 mL Intravenous 2 times per day nortriptyline 50 mg Oral BID atorvastatin 80 mg Oral Nightly melatonin 3 mg Oral Nightly Continuous Infusions: sodium chloride sodium chloride 20 mL/hr at 11/04/20 1320 insulin Stopped (11/05/20 0700) dextrose dexmedetomidine PRN Meds:sodium chloride, acetaminophen, metoprolol, QUEtiapine, sodium chloride flush, ondansetron, potassium chloride, potassium chloride, magnesium sulfate, calcium gluconate, glucose, dextrose, glucagon (rDNA), dextrose, polyethylene glycol Diagnostic Workup: I reviewed pertinent Laboratory results, Radiographic results, and Other Clinical Notes at the timeof today's encounter. BMP: Recent Labs 11/04/20 0242 11/04/20 1150 11/05/20 0012 NA 136 140 138 K 3.7 4.1 3.8 CL 105 111* 109* CO2 25 21* 23 BUN 15 13 13 CREATININE 0.69 0.60 0.60 GLUCOSE 100 103* 96 Glucose: Recent Labs 11/05/20 0003 11/05/20 0120 11/05/20 0158 11/05/20 0316 11/05/20 0419 11/05/20 0502 11/05/20 0610 11/05/20 0823 POCGLU 109* 97 85 76 76 84 72 98 HgbA1C: No results for input(s): LABA1C in the last 72 hours. Hepatic: No results for input(s): ALKPHOS, ALT, AST, PROT, BILITOT, BILIDIR, LABALBU in the last 72hours. Lipids: No results for input(s): CHOL, TRIG, HDL, LDLCALC in the last 72 hours. Invalid input(s): LDL TSH: Lab Results Component Value Date TSH 0.425 (L) 10/31/2020 History/Other: Past Medical History: Past Medical History: Diagnosis Date CAD (coronary artery disease) Hyperlipidemia Hypertension Iron deficiency anemia Neuropathy Past Surgical History: Past Surgical History: Procedure Laterality Date APPENDECTOMY 1952 CARDIAC CATHETERIZATION 10/30/2020 CARDIAC CATHETERIZATION 2005 1 stent to LAD Allergy(ies): Allergies Allergen Reactions Aspartame Beef-Derived Products Contrast [Iodides] Diazepam Other (See Comments) Nightmares. Would not want to take this again. Noted years ago, never charted, never mentioned Food severe stomach discomfort. Iodine Lactose Diarrhea Other Diarrhea additives, fillers, thickeners, colors etc Pork Allergy Saccharin Sucralose Tomato Soy Allergy Nausea And Vomiting Family History: History reviewed. No pertinent family history. Social History: Social History Tobacco Use Smoking status: Never Smoker Smokeless tobacco: Never Used Vaping Use Vaping Use: Never used Substance Use Topics Alcohol use: Not Currently Drug use: Never I spent 25 minutes with the pt which involved more than 51% of the time in coordination of care, medical evaluation, review of records, and/or counseling of the pt regarding his/her condition/diseasestate/prognosis on the date of this note. * Medina Higgins PT - 11/05/2020 10:24 AM EDT Physical Therapy Pt recently pulled out his CT. Team of staff currently in the room. Will defer PT eval at this time. * Nayeli Serrano MD - 11/05/2020 7:10 AM EDT ICU Progress Note 11/05/2020 9:00 AM Subjective: Admit Date: 10/31/2020 PCP: No primary care provider on file. Interval History: Pt required narcan last night for lethargy. Pt agitated this am. She is alert to name only but moves all extremities appropriately. Diet: Diet NPO Medications: Scheduled Meds: lidocaine 1 patch Transdermal Daily ketorolac 15 mg Intravenous Q6H furosemide 40 mg Intravenous Once heparin (porcine) 5,000 Units Subcutaneous BID [Held by provider] aspirin 325 mg Oral Daily acetaminophen 1,000 mg Oral Q8H chlorhexidine 15 mL Mouth/Throat BID mupirocin Nasal BID polyethylene glycol 17 g Oral Daily sennosides-docusate sodium 2 tablet Oral Nightly pantoprazole 40 mg Intravenous Daily And sodium chloride (PF) 10 mL Intravenous Daily ceFAZolin (ANCEF) IVPB 2,000 mg Intravenous Q8H ipratropium-albuterol 1 ampule Inhalation Q4H WA sodium chloride flush 5-40 mL Intravenous 2 times per day [Held by provider] nortriptyline 50 mg Oral BID [Held by provider] atorvastatin 80 mg Oral Nightly melatonin 3 mg Oral Nightly Continuous Infusions: sodium chloride sodium chloride 20 mL/hr at 11/04/20 1320 insulin 0.75 Units/hr (11/05/20 0610) dextrose dexmedetomidine CBC: Recent Labs 11/04/20 1150 11/04/20 1629 11/05/20 0012 WBC 8.7 9.2 7.6 HGB 7.8* 8.8* 7.9* PLT 131* 146 144 BMP: Recent Labs 11/04/20 0242 11/04/20 1150 11/05/20 0012 NA 136 140 138 K 3.7 4.1 3.8 CL 105 111* 109* CO2 25 21* 23 BUN 15 13 13 CREATININE 0.69 0.60 0.60 GLUCOSE 100 103* 96 INR: Recent Labs 11/04/20 1629 INR 1.2* Objective: Vitals: BP 101/65 Pulse 89 Temp 98.5 F (36.9 C) Resp 18 Ht 5' 6 (1.676 m) Wt 142 lb 8 oz(64.6 kg) SpO2 94% BMI 23.00 kg/m Physical Exam: General Appearance: []WDWN []Obese []Cachectic [x]Thin []ill Skin: Temperature [x]Warm []Cool Rash []Yes [x]No Tattoo(s) []Yes []No HEENT: Pupils round and react [x]Yes []No Sclera []Icteric [x]Non-Icteric Conjunctiva []Injected [x]Non-Injected Pinnae [x]Normal []Other Dentitian [x][place] Teeth []Dentures []Poor dentition []Edentulous Oral Mucosa [x][place] [x]Moist []Dry Oral ETT []Present [x]Absent Neck: Trachea midline [x]Yes []No Thyromegaly []Yes [x]No Crepitus []Present [x]Absent Jvd []Present [x]Absent Lungs: [x]Clear []Crackles []Wheezes []Rhonchi Respiratory effort []Labored [x]Non-Labored Heart: Rate [x]Regular []Irregular []Tachycardia []Bradycardia Rhythm [x]Regular []Irregular Murmur []Present [x]Absent Peripheral Edema []Present [x]Absent Abdomen: [x]Soft Bowel Sounds [x]Present []Absent []Diminished []Tender []Non-Tender []Distended [x]Non-distended Hernia []Present []Absent Organomegaly []Present []Absent []Unable to assess due to size []Scar Extremities: Cyanosis []Present [x]Absent Capillary Refill [x]<3 sec []>3 sec DELGADO ([x]RUE [x]RLE [x]LUE [x]LLE) Neurologic: [place] []Yes [x]No Corneal reflexes []Present []Absent Plantar reflexes []Up []Down []Absent Withdraws to tactile []Yes []No Follows Commands [x]Yes some simple []Cranial nerves grossly intact []Sensation grossly intact Psych: Alert [x]yes []no Oriented []x0 []x1 []x2 []x3 Affect []Normal []Flat [x]Agitated []Anxious []Calm []Sedated []NAD Assessment and Plan: 1. POD 1 CABG X 4: hemodynamics good, SG removed, 2. Post op pulmonary management: extubated without event, adequate ventilation when awake 3. Anemia: acute blood loss, transfuse to optimize 4. Encephalopathy: metabolic, non focal, likely due to meds for post op. 5. Anxiety, depression: on nortriptyline as outpatient 6. DVT/GI proph Patient Active Problem List: Disease NSTEMI (non-ST elevated myocardial infarction) ([facility]) Stress hyperglycemia S/P CABG (coronary artery bypass graft) NAYELI SERRANO MD, MD * Carmelo Brown, LUCIANO - AGENT CONTRACT CLERK - 11/05/2020 5:59 AM EDT Images from the original note were not included. Cardiothoracic Surgery Progress Note PATIENT NAME: Lavelle Rueda TODAY'S DATE: 11/05/2020 Surgery/Procedure: Interval History: POD #1 - VSS overnight - had acute delirium felt RT narcotic use - CT head negative - oriented to self only currently - given narcan with improvement CVP low given 500ml and 50 albumin overnight - anemic this AM due to surgical losses HGB 7.9 - Creat .6 - CT output/urine output stable. IV Drips: - Nipride Insulin Last recorded/verified vitals in Epic BP (!) 111/53 Pulse 90 Temp 99 F (37.2 C) (Core) Resp 21 Ht 5' 6 (1.676 m) Wt 142 lb 8 oz (64.6 kg) SpO2 94% BMI 23.00 kg/m Recent Labs 11/04/20 0242 11/04/20 1150 11/04/20 1629 11/05/20 0012 WBC 10.8* 8.7 9.2 7.6 HGB 14.6 7.8* 8.8* 7.9* PLT 218 131* 146 144 INR -- -- 1.2* -- NA 136 140 -- 138 K 3.7 4.1 -- 3.8 CREATININE 0.69 0.60 -- 0.60 Current Outpatient Medications Medication Instructions aspirin 81 mg, Oral, DAILY clorazepate (TRANXENE) 3.75 mg, Oral, 4 TIMES DAILY PRN ferrous sulfate (IRON 325) 325 mg, Oral, DAILY metoprolol tartrate (LOPRESSOR) 25 mg, Oral, 2 TIMES DAILY nortriptyline (PAMELOR) 25 mg, Oral, 5 TIMES DAILY vitamin D (CHOLECALCIFEROL) 50,000 Units, Oral, WEEKLY ASSESSMENT/PLAN: Patient Active Problem List Diagnosis Code Disease R69 NSTEMI (non-ST elevated myocardial infarction) (HCC) I21.4 Stress hyperglycemia R73.9 S/P CABG (coronary artery bypass graft) Z95.1 NSTEMI MVCAD HTN HLD Post Op Anemia - transfuse 2 units PRBC's today lasix in betweeen Delerium - CT head Negative, given narcan overnight, Plan - DC nipride gtt - PRBC today x 2 units, lasix in between - permissive HTN maps 75-85 - start asa, statin, DVT, add BB IV until cleared by speech - De-line remove art and swan - speech eval to clear for PO - keep miller cath - limit narcotic use - Toradol added Cardiac Core Medications: ASA, Statin and BB Post operative pulm management: Normal Post-Operative Course Lines: [place] 11/05, CT x 3, RIJ 11/05, Art Line 11/05 EF: 65% Blood Conservation: 6-14. Plt and 2 units blood DVT prophylaxis: TEDs, SCDs and Heprin SQ Treatment Team: Primary Care Provider: No primary care provider on file. Cardiology: Jones CCM:Mikhail Endocrinology: Disclaimer INFORMED CONSENT:The nature and purpose of the proposed treatment or procedure have been discussed.The risks and benefits of the proposed treatment or procedures have been reviewed. Alternatives have been reviewed in addition to the risks and benefits of not receiving treatments or undergoing procedures. Pursuant to this discussion, the patient agrees to undergo the proposed treatment or procedure. Captured images seen in this note from are not a substitute for a comprehensive interpretation of the entire data set as reflected by the interpreting physician with regard to radiology, echocardiography, and other diagnostic images. This note may have been dictated using [employer] Edition 2.6 and/or [place] Voice Recognition Feature. The document was proofread, however unrecognized voice recognition antisqueak filler errors may be present. * Eligio Gandara MD - 11/04/2020 7:34 PM EDT Vitals: 11/04/20 1900 BP: Pulse: 99 Resp: 15 Temp: SpO2: 96% BP 120/58 Called to evaluate pt with altered LOC. Pt spont resp but not awakening. ABG with pH 7.275, CO2 55.8, O2 85. Heart RRR, Lungs symmetric breath sounds. Narcan 1mg IV given. Pt opens eyes, spont moves all ext and spont withdraws all ext. Pupils symmetric. Does not follow simple commands. A/ acute encephalopathy post op, hypercapnea, now with agitation moving all ext s/p narcan P/ s/p narcan, hold sedating medications, check head CT, neuro checks Will notify CT surgery * Lizzy Bell RCP - 11/04/2020 4:32 PM EDT Pt placed on trial for [address] Serrano. Extubated to 2L NC SpO2 98 * Jaycee Crane, OT - 11/04/2020 3:09 PM EDT Occupational Therapy OT hold note OT eval and treat order received and chart reviewed. Pt S/P CABG x4 today and still intubated aftersurgery.Will hold OT eval until medically ready. Jaycee Crane OTR/L * Carmelo Brown APRN - CNP - 11/04/2020 5:53 AM EDT CABG today - orders placed pt dispo to PACU shortly * Andrew Goldman MD - 11/03/2020 6:21 AM EDT [facility] CCU PROGRESS NOTE Patient Name: Lavelle Rueda : 1945 Reason for Admission: NSTEMI History of Present Illness: Lavelle Rueda is a 75 y.o. female with hx of HTN, HLD, depression/anxiety, CAD s/p PCI and JESUS (2005), arthritisthat was admitted to [facility] on 10/31/2020 for NSTEMI. She was transferred from [facility] following cath for CABG evaluation. No intervention done at outside hospital. 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 No overnight events. Patient continues to have diarrhea. Stool is darker as she is on iron but no recent changes. Cannot remember her last normal BM. She is going multiple times per day. Review of Systems Constitutional: Negative for appetite change. Eyes: Negative for visual disturbance. Respiratory: Negative for shortness of breath. Gastrointestinal: Positive for diarrhea. Negative for abdominal pain, nausea and vomiting. Neurological: Negative for dizziness, light-headedness and headaches. Past Medical History: Diagnosis Date CAD (coronary artery disease) Hyperlipidemia Hypertension Iron deficiency anemia Neuropathy Past Surgical History: Procedure Laterality Date APPENDECTOMY 1952 CARDIAC CATHETERIZATION 10/30/2020 CARDIAC CATHETERIZATION 2005 05 stent to LAD History reviewed. No pertinent family history. Social History Socioeconomic History Marital status: Spouse name: Not on file Number of children: 1 Years of education: Not on file Highest education level: Not on file Occupational History Not on file Tobacco Use Smoking status: Never Smoker Smokeless tobacco: Never Used Vaping Use Vaping Use: Never used Substance and Sexual Activity Alcohol use: Not Currently Drug use: Never Sexual activity: Not on file Other Topics Concern Not on file Social History Narrative Not on file Social Determinants of Health Financial Resource Strain: Difficulty of Paying Living Expenses: Food Insecurity: Worried About Running Out of Food in the Last Year: Ran Out of Food in the Last Year: Transportation Needs: Lack of Transportation (Medical): Lack of Transportation (Non-Medical): Physical Activity: Days of Exercise per Week: Minutes of Exercise per Session: Stress: Feeling of Stress : Social Connections: Frequency of Communication with Friends and Family: Frequency of Social Gatherings with Friends and Family: Attends Congregational Services: Active Member of Clubs or Organizations: Attends Club or Organization Meetings: Marital Status: Intimate Partner Violence: Fear of Current or Ex-Partner: Emotionally Abused: Physically Abused: Sexually Abused: Allergies Allergen Reactions Aspartame Beef-Derived Products Contrast [Iodides] Diazepam Other (See Comments) Nightmares. Would not want to take this again. Noted years ago, never charted, never mentioned Food severe stomach discomfort. Iodine Lactose Diarrhea Other Diarrhea additives, fillers, thickeners, colors etc Pork Allergy Saccharin Sucralose Tomato Soy Allergy Nausea And Vomiting potassium chloride 40 mEq Oral Once enoxaparin 40 mg Subcutaneous Daily midazolam sodium chloride flush 5-40 mL Intravenous 2 times per day aspirin 81 mg Oral Daily ferrous sulfate 325 mg Oral Daily metoprolol tartrate 25 mg Oral BID nortriptyline 50 mg Oral BID atorvastatin 80 mg Oral Nightly LORazepam 0.5 mg Oral BID melatonin 3 mg Oral Nightly Physical Exam: BP 122/89 Pulse 75 Temp 98.1 F (36.7 C) (Oral) Resp 16 Ht 5' 6 (1.676 m) Wt 147 lb (66.7kg) SpO2 97% BMI 23.73 kg/m Date 11/03/20 0000 - 11/03/20 2350 Shift 2945-6699 2208-5982 2047-1449 24 Hour Total INTAKE Shift Total(mL/kg) OUTPUT Urine(mL/kg/hr) 200 200 Shift Total(mL/kg) 200(3) 200(3) Weight (kg) 66.7 66.7 66.7 66.7 Patient Vitals for the past 96 hrs (Last 3 readings): Weight 10/31/20 0130 147 lb (66.7 kg) Physical Exam Constitutional: General: She is not in acute distress. Eyes: Conjunctiva/sclera: Conjunctivae normal. Cardiovascular: Rate and Rhythm: Normal rate and regular rhythm. Pulses: Normal pulses. Heart sounds: Normal heart sounds. Pulmonary: Effort: Pulmonary effort is normal. No respiratory distress. Breath sounds: Normal breath sounds. No wheezing. Abdominal: General: There is no distension. Palpations: Abdomen is soft. Tenderness: There is abdominal tenderness. Musculoskeletal: Right lower leg: No edema. Left lower leg: No edema. Skin: General: Skin is warm and dry. Neurological: General: No focal deficit present. Mental Status: She is alert. Psychiatric: Mood and Affect: Mood normal. Behavior: Behavior normal. Pertinent Labs: BMP: Recent Labs 11/03/20221 NA 134* K 3.6 CL 103 CO2 23 BUN 14 CREATININE 0.64 GLUCOSE 111* CBC: Recent Labs 11/03/20221 WBC 12.8* HGB 13.9 PLT 201 ABGs: No results found for: PHART, PO2ART, [id number] INR: No results for input(s): INR in the last 72 hours. TSH: Lab Results Component Value Date TSH 0.425 (L) 10/31/2020 PRO-BNP: No results for input(s): BNP in the last 72 hours. Cardiac Injury Profile: Recent Labs 10/31/20 1608 10/31/20 2358 TROPONINI 16.900* 13.700* Lipid Profile: Lab Results Component Value Date TRIG 74 10/31/2020 HDL 47 10/31/2020 CHOL 176 10/31/2020 Hemoglobin A1C: No components found for: HGBA1C Chest Imaging: - CXR: none - CTA Chest: none - CT Chest: none No other studies available at this time. Cardiac Studies: - EKG: Measurements Intervals [place] Rate: 80 P: 54 MD: 149 QRS: 11 QRSD: 97 T: 62 QT: 387 QTc: 447 Interpretive Statements Sinus rhythm - Telemetry Review: sinus rhythm - Echo (11/01): SUMMARY: 1. Left ventricle: Systolic function is normal by visual assessment. The estimated ejection fraction is 65%. 2. Right ventricle: The cavity size is normal. Systolic function is normal by acoustic quantification. 3. No significant valvular abnormalities. - Cardiac Cath (10/31): Multivessel disease. Complete occlusion of circumflex. No other studies available at this time. Active Problems: Disease Resolved Problems: * No resolved hospital problems. * ASSESSMENT / PLAN: NSTEMI s/p [facility] with multivessel disease Hx of CAD s/p JESUS (2005) - EKG with nonspecific T wave changes, troponin from [facility] 18.500 initially - troponin up trended yesterday, continued chest pain. Taken back to clinical genetics laboratory chief - Occlusion of Circumflex. No intervention - Continue home ASA 81 mg, Lipitor 80 mg daily - Continue home Lopressor 25 mg BID - Daily EKG - Daily labs - Echo shows normal EF 65%. - Consult CTS for evaluation for CABG -plan for Wednesday -off nitro and heparin gtt HTN - Medications as above HLD - Lipitor 80 mg Depression/anxiety - Nortryptyline 125 mg daily - Home clorazepate 3.75 mg TID substituted with Ativan 0.5 mg BID by pharmacy Diarrhea/JAE - Chronic issue - has not improved - Patient takes iron tablet daily which helps with diarrhea - Goals of Care: FULL CODE - Anticoagulation: lovenox daily - GI Prophylaxis: Not Indicated - Diet: General - BMI Classification: Body mass index is 23.73 kg/m . Overweight (BMI 25-29.9) - Disposition: No changes. CABG tomorrow. Will monitor until then * Andrew Goldman MD - 11/02/2020 6:26 AM EDT [facility] CCU PROGRESS NOTE Patient Name: Lavelle Rueda : 1945 Reason for Admission: NSTEMI History of Present Illness: Lavelle Rueda is a 75 y.o. female with hx of HTN, HLD, depression/anxiety, CAD s/p PCI and JESUS (2005), arthritisthat was admitted to [facility] on 10/31/2020 for NSTEMI. She was transferred from [facility] following cath for CABG evaluation. No intervention done at outside hospital. Taken to cathlab again yesterday and found to have blockage in circumflex artery. No overnight events. She has been asymptomatic off of nitro. No complaints this AM. Denies lightheadedness, chest pain, shortness of breath. Review of Systems Eyes: Negative for visual disturbance. Respiratory: Negative for shortness of breath. Cardiovascular: Negative for chest pain and leg swelling. Gastrointestinal: Negative for abdominal pain, nausea and vomiting. Neurological: Negative for dizziness, light-headedness and headaches. Past Medical History: Diagnosis Date CAD (coronary artery disease) Hyperlipidemia Hypertension Iron deficiency anemia Neuropathy Past Surgical History: Procedure Laterality Date APPENDECTOMY 1952 CARDIAC CATHETERIZATION 10/30/2020 CARDIAC CATHETERIZATION 2005 05 stent to LAD History reviewed. No pertinent family history. Social History Socioeconomic History Marital status: Spouse name: Not on file Number of children: 1 Years of education: Not on file Highest education level: Not on file Occupational History Not on file Tobacco Use Smoking status: Never Smoker Smokeless tobacco: Never Used Vaping Use Vaping Use: Never used Substance and Sexual Activity Alcohol use: Not Currently Drug use: Never Sexual activity: Not on file Other Topics Concern Not on file Social History Narrative Not on file Social Determinants of Health Financial Resource Strain: Difficulty of Paying Living Expenses: Food Insecurity: Worried About Running Out of Food in the Last Year: Ran Out of Food in the Last Year: Transportation Needs: Lack of Transportation (Medical): Lack of Transportation (Non-Medical): Physical Activity: Days of Exercise per Week: Minutes of Exercise per Session: Stress: Feeling of Stress : Social Connections: Frequency of Communication with Friends and Family: Frequency of Social Gatherings with Friends and Family: Attends Congregational Services: Active Member of Clubs or Organizations: Attends Club or Organization Meetings: Marital Status: Intimate Partner Violence: Fear of Current or Ex-Partner: Emotionally Abused: Physically Abused: Sexually Abused: Allergies Allergen Reactions Aspartame Beef-Derived Products Contrast [Iodides] Diazepam Other (See Comments) Nightmares. Would not want to take this again. Noted years ago, never charted, never mentioned Food severe stomach discomfort. Iodine Lactose Diarrhea Other Diarrhea additives, fillers, thickeners, colors etc Pork Allergy Saccharin Sucralose Tomato Soy Allergy Nausea And Vomiting sodium chloride flush 5-40 mL Intravenous 2 times per day aspirin 81 mg Oral Daily ferrous sulfate 325 mg Oral Daily metoprolol tartrate 25 mg Oral BID nortriptyline 50 mg Oral BID atorvastatin 80 mg Oral Nightly LORazepam 0.5 mg Oral BID melatonin 3 mg Oral Nightly Physical Exam: BP (!) 155/78 Pulse 67 Temp 97.9 F (36.6 C) (Oral) Resp 19 Ht 5' 6 (1.676 m) Wt 147 lb (66.7 kg) SpO2 99% BMI 23.73 kg/m Patient Vitals for the past 96 hrs (Last 3 readings): Weight 10/31/20 0130 147 lb (66.7 kg) Physical Exam Constitutional: General: She is not in acute distress. Appearance: She is normal weight. Eyes: Conjunctiva/sclera: Conjunctivae normal. Cardiovascular: Rate and Rhythm: Normal rate and regular rhythm. Pulses: Normal pulses. Musculoskeletal: Right lower leg: No edema. Left lower leg: No edema. Skin: General: Skin is warm and dry. Neurological: General: No focal deficit present. Mental Status: She is alert. Psychiatric: Mood and Affect: Mood normal. Behavior: Behavior normal. Thought Content: Thought content normal. Judgment: Judgment normal. Pertinent Labs: BMP: Recent Labs 11/02/20 0001 NA 135 K 4.1 CL 106 CO2 28 BUN 16 CREATININE 0.61 GLUCOSE 94 CBC: Recent Labs 11/02/20 0001 WBC 8.4 HGB 12.1 PLT 182 ABGs: No results found for: PHART, PO2ART, [id number] INR: Recent Labs 10/31/20 0244 INR 1.1 TSH: Lab Results Component Value Date TSH 0.425 (L) 10/31/2020 PRO-BNP: No results for input(s): BNP in the last 72 hours. Cardiac Injury Profile: Recent Labs 10/31/20 1608 10/31/20 2358 TROPONINI 16.900* 13.700* Lipid Profile: Lab Results Component Value Date TRIG 74 10/31/2020 HDL 47 10/31/2020 CHOL 176 10/31/2020 Hemoglobin A1C: No components found for: HGBA1C Chest Imaging: - CXR: none - CTA Chest: none - CT Chest: none No other studies available at this time. Cardiac Studies: - EKG: Measurements Intervals [place] Rate: 70 P: 49 MD: 148 QRS: 36 QRSD: 99 T: 85 QT: 485 QTc: 524 Interpretive Statements Sinus rhythm Nonspecific T abnrm, anterolateral leads Prolonged QT interval - Telemetry Review: sinus rhytm - Echo (11/01): SUMMARY: 1. Left ventricle: Systolic function is normal by visual assessment. The estimated ejection fraction is 65%. 2. Right ventricle: The cavity size is normal. Systolic function is normal by acoustic quantification. 3. No significant valvular abnormalities. - Cardiac Cath (10/31): Multivessel disease. Complete occlusion of circumflex. No other studies available at this time. Active Problems: Disease Resolved Problems: * No resolved hospital problems. * ASSESSMENT / PLAN: NSTEMI s/p [facility] with multivessel disease Hx of CAD s/p JESUS (2005) - EKG with nonspecific T wave changes, troponin from [facility] 18.500 initially - troponin up trended yesterday, continued chest pain. Taken back to clinical genetics laboratory chief - Occlusion of Circumflex. No intervention - Continue home ASA 81 mg, Lipitor 80 mg daily - Continue home Lopressor 25 mg BID - Daily EKG - Daily labs - Echo shows normal EF 65%. - Consult CTS for evaluation for CABG -plan for Wednesday - successfully weaned off nitro gtt - discontinue heparin gtt HTN - Medications as above HLD - Lipitor 80 mg Depression/anxiety - Nortryptyline 125 mg daily - Home clorazepate 3.75 mg TID substituted with Ativan 0.5 mg BID by pharmacy Diarrhea/JAE - Chronic issue, stable - Patient takes iron tablet daily which helps with diarrhea - Goals of Care: FULL CODE - Anticoagulation: lovenox daily - GI Prophylaxis: Not Indicated - Diet: General - BMI Classification: Body mass index is 23.73 kg/m . Normal (BMI 18.5-24.9) - Disposition: Continue to monitor in CCU. I, Dr. Andrew Goldman MD, saw and evaluated the patient on 11/03/2020. I personally obtained the selby and critical portions of the history and physical exam. I reviewed the labs, imaging studies, and electronic medical record. I reviewed the resident's documentation, and discussed the patient with the resident. I agree with the resident's medical decision making and have edited the note to reflectmy clinical findings and my assessment and plan. * Pablo Castillo, DO - 11/01/2020 6:22 AM EDT [facility] CCU PROGRESS NOTE Patient Name: Lavelle Rueda : 1945 Reason for Admission: NSTEMI History of Present Illness: Lavelle Rueda is a 75 y.o. female with hx of HTN, HLD, depression/anxiety, CAD s/p PCI and JESUS (2005), arthritisthat was admitted to [facility] on 10/31/2020 for NSTEMI. She was transferred from [facility] following cath for CABG evaluation. No intervention done at outside hospital. Taken to cathlab again yesterday and found to have blockage in circumflex artery. No events overnight. Troponin down trending. States she feels a little foggy at times. No symptoms when moving from bed to chair. She states her chest pain has resolved. Denies CASTELLANOS, vision changes, shortness of breath. Review of Systems Constitutional: Negative for chills and fever. Respiratory: Negative for shortness of breath. Cardiovascular: Negative for chest pain and leg swelling. Gastrointestinal: Negative for abdominal pain, nausea and vomiting. Neurological: Positive for light-headedness. Negative for dizziness, weakness and headaches. Past Medical History: Diagnosis Date CAD (coronary artery disease) Hyperlipidemia Hypertension Iron deficiency anemia Neuropathy Past Surgical History: Procedure Laterality Date APPENDECTOMY 1952 CARDIAC CATHETERIZATION 10/30/2020 CARDIAC CATHETERIZATION 2005 05 stent to LAD History reviewed. No pertinent family history. Social History Socioeconomic History Marital status: Spouse name: Not on file Number of children: 1 Years of education: Not on file Highest education level: Not on file Occupational History Not on file Tobacco Use Smoking status: Never Smoker Smokeless tobacco: Never Used Vaping Use Vaping Use: Never used Substance and Sexual Activity Alcohol use: Not Currently Drug use: Never Sexual activity: Not on file Other Topics Concern Not on file Social History Narrative Not on file Social Determinants of Health Financial Resource Strain: Difficulty of Paying Living Expenses: Food Insecurity: Worried About Running Out of Food in the Last Year: Ran Out of Food in the Last Year: Transportation Needs: Lack of Transportation (Medical): Lack of Transportation (Non-Medical): Physical Activity: Days of Exercise per Week: Minutes of Exercise per Session: Stress: Feeling of Stress : Social Connections: Frequency of Communication with Friends and Family: Frequency of Social Gatherings with Friends and Family: Attends Congregational Services: Active Member of Clubs or Organizations: Attends Club or Organization Meetings: Marital Status: Intimate Partner Violence: Fear of Current or Ex-Partner: Emotionally Abused: Physically Abused: Sexually Abused: Allergies Allergen Reactions Aspartame Beef-Derived Products Contrast [Iodides] Diazepam Other (See Comments) Nightmares. Would not want to take this again. Noted years ago, never charted, never mentioned Food severe stomach discomfort. Iodine Lactose Diarrhea Other Diarrhea additives, fillers, thickeners, colors etc Pork Allergy Saccharin Sucralose Tomato Soy Allergy Nausea And Vomiting sodium chloride flush 5-40 mL Intravenous 2 times per day aspirin 81 mg Oral Daily ferrous sulfate 325 mg Oral Daily metoprolol tartrate 25 mg Oral BID nortriptyline 50 mg Oral BID atorvastatin 80 mg Oral Nightly LORazepam 0.5 mg Oral BID melatonin 3 mg Oral Nightly Physical Exam: BP (!) 111/54 Pulse 67 Temp 98.4 F (36.9 C) (Oral) Resp 16 Ht 5' 6 (1.676 m) Wt 147 lb (66.7 kg) SpO2 97% BMI 23.73 kg/m Date 11/01/20 0000 - 11/01/20 2359 Shift 6790-1035 5967-1542 3792-5658 24 Hour Total INTAKE P.O.(mL/kg/hr) 120 120 I.V.(mL/kg) 666.5(10) 666.5(10) Shift Total(mL/kg) 786.5(11.8) 786.5(11.8) OUTPUT Urine(mL/kg/hr) 550 550 Shift Total(mL/kg) 550(8.2) 550(8.2) Weight (kg) 66.7 66.7 66.7 66.7 Patient Vitals for the past 96 hrs (Last 3 readings): Weight 10/31/20 0130 147 lb (66.7 kg) Physical Exam Constitutional: General: She is not in acute distress. Appearance: She is normal weight. Eyes: Conjunctiva/sclera: Conjunctivae normal. Cardiovascular: Rate and Rhythm: Normal rate and regular rhythm. Pulses: Normal pulses. Pulmonary: Effort: Pulmonary effort is normal. No respiratory distress. Breath sounds: Normal breath sounds. No wheezing. Abdominal: General: There is no distension. Palpations: Abdomen is soft. Tenderness: There is no abdominal tenderness. Musculoskeletal: Right lower leg: No edema. Left lower leg: No edema. Skin: General: Skin is warm and dry. Neurological: General: No focal deficit present. Mental Status: She is alert. Psychiatric: Mood and Affect: Mood normal. Behavior: Behavior normal. Thought Content: Thought content normal. Judgment: Judgment normal. Pertinent Labs: BMP: Recent Labs 10/31/20 2358 NA 137 K 4.3 CL 108* CO2 24 BUN 14 CREATININE 0.68 GLUCOSE 114* CBC: Recent Labs 10/31/20 2358 WBC 16.3* HGB 11.7 PLT 230 ABGs: No results found for: PHART, PO2ART, [id number] INR: Recent Labs 10/31/20 0244 INR 1.1 TSH: Lab Results Component Value Date TSH 0.425 (L) 10/31/2020 PRO-BNP: No results for input(s): BNP in the last 72 hours. Cardiac Injury Profile: Recent Labs 10/31/20 1608 10/31/20 2358 TROPONINI 16.900* 13.700* Lipid Profile: Lab Results Component Value Date TRIG 74 10/31/2020 HDL 47 10/31/2020 CHOL 176 10/31/2020 Hemoglobin A1C: No components found for: HGBA1C Chest Imaging: - CXR: none - CTA Chest: none - CT Chest: none No other studies available at this time. Cardiac Studies: - EKG: Measurements Intervals [place] Rate: 65 P: 10 MD: 158 QRS: 18 QRSD: 97 T: 110 QT: 450 QTc: 468 Interpretive Statements Sinus rhythm Nonspecific T abnormalities, lateral leads - Telemetry Review: sinus rhythm - Echo: pending - Cardiac Cath (10/31): Multivessel disease. Complete occlusion of circumflex. No other studies available at this time. Active Problems: Disease Resolved Problems: * No resolved hospital problems. * ASSESSMENT / PLAN: NSTEMI s/p [facility] with multivessel disease Hx of CAD s/p JESUS (2005) - EKG with nonspecific T wave changes, troponin from [facility] 18.500 initially - troponin up trended yesterday, continued chest pain. Taken back to clinical genetics laboratory chief - Occlusion of Circumflex. No intervention - Nitro drip - Heparin drip - Continue home ASA 81 mg, Lipitor 80 mg daily - Continue home Lopressor 25 mg BID - Troponin now down trending - Daily EKG - Daily labs - Echo pedning - Consult CTS for evaluation for CABG -plan for Wednesday - Will wean nitro drip today HTN - Medications as above HLD - Lipitor 80 mg Depression/anxiety - Nortryptyline 125 mg daily - Home clorazepate 3.75 mg TID substituted with Ativan 0.5 mg BID by pharmacy Diarrhea/JAE - Chronic issue, stable - Patient takes iron tablet daily which helps with diarrhea - Goals of Care: FULL CODE - Anticoagulation: Heparin Drip - GI Prophylaxis: Not Indicated - Diet: General - BMI Classification: Body mass index is 23.73 kg/m . Normal (BMI 18.5-24.9) - Disposition: Continue to monitor in CCU. Associated attestation - Andrew Goldman MD - 11/01/2020 10:55 PM EDT I, Dr. Andrew Goldman MD, saw and evaluated the patient on 11/01/2020. I personally obtained the selby and critical portions of the history and physical exam. I reviewed the labs, imaging studies, and electronic medical record. Ms. Rueda 75 year old woman with a history of prior LAD stent who presented to [facility] with NSTEMI, cath films from [facility] reviewed, demonstrated Left main disease and Ostial RCA from my review there was concern for occlusion in LCx territory, as she had continued chest pain she was brought to clinical genetics laboratory chief where a Ramus was occluded, attempted to wire Ramus but unable to do so, therefore she will be treated medically for this occlusion. She is now chest pain free and LV function is preserved withreview of her TTE. Plan is for eventual CABG once her P2y12 has washed out. I reviewed the resident's documentation, and discussed the patient with the resident. I agree with the resident's medical decision making and have edited the note to reflect my clinical findings and my assessment and plan. * Nati Foley RD, LD - 10/31/2020 4:38 PM EDT Comprehensive Nutrition Assessment Type and Reason for Visit: Initial, Positive Nutrition Screen (food allergies, pt request to see RD) Nutrition Recommendations/Plan: 1. Continue general diet for maximum menu options to promote adequate PO intake. RD notified diet office of pt food preferences and added reported allergies to EPIC 2. Per MNT protocol, will order [employer] 1.0 BID to supplement PO diet (325kcal, 16g protein, 11oz each) 3. Discussed methods for more clearly identifying food sensitivities including keeping a food journal and trailing FODMAP diet. Will monitor for appropriateness for heart healthy diet education. Noted pt states she does not eat pork, red meat, dairy, or soy 4. RD helped pt identify menu items that are appropriate to trial according to her reported allergies. Encourage food from home to promote adequate po intake 5. RD will monitor diet tolerance, po intake, weights, labs, I&O, overall nutrition status and follow up weekly Nutrition Assessment: Pt with PMHx including HTN, HLD, depression/anxiety, CAD s/p PCI and JESUS (2005), arthritis presented to [facility] on 10/31/2020 from OSH with NSTEMI s/p LHC at OSH showing MV disease, no intervention done, transferred to [facility] for evaluation for CABG. Plan for CABG Wednesday. Pt has just ordered a meal. She reports that she has determined she is allergic to all artificial ingredients, including artifical sugars, flavors, preservatives, conditioners, anti-caking ingredients, etc. Pt additionally reports allergy/intolerance to dairy, soy, red meat, pork, and acidic foods such as tomato. Reports symptom of allergies is very sudden diarrhea. RD explained that it would be difficult to i dentify foods on the menu that pt will tolerate with certainty. Also discussed with pt unlikelihoodthat she has allergies to every artificial ingredient given the diversity and pervasiveness of artificial ingredients in food. RD suggested that pt should keep a food journal to more accurately identifiy food triggers. Also suggested pt may trial FODMAP diet to determine if possible IBS symptoms; discussed briefly FODMAP diet and provided handout. RD reviewed menu with pt and identified appropriate foods for pt to trial according to her reported sensitivities. RD also encouraged pt to have spouse (present in room) bring food from home as able to promote adequate po intake. Discussed PHRQL supplement, which she is agreeable to. Malnutrition Assessment: Malnutrition Status: At risk for malnutrition (Comment) (plan for open heart surgery; limited menu options due to perceived food allergies) Estimated Daily Nutrient Needs: Energy (kcal): 1665-0141; Weight Used for Energy Requirements: Admission (25-30kcal/kg) Protein (g): 80-87; Weight Used for Protein Requirements: Admission (1.2-1.3g/kg) Fluid (ml/day): Per MD; Method Used for Fluid Requirements: (N/A) Nutrition Related Findings: -I&O. No edema. Hypoactive bowel sounds. +N/V. Aguilar=20. Labs and meds reviewed BMP: Recent Labs 10/31/20 0244 NA 135 K 3.5 CL 105 CO2 24 BUN 8 CREATININE 0.51* GLUCOSE 161* CALCIUM 8.8 MG 1.9 HEPATIC: Recent Labs 10/31/20 0244 AST 175* ALT 32 BILITOT 0.5 ALKPHOS 109 Wounds: None Current Nutrition Therapies: ADULT DIET; Regular Anthropometric Measures: Height: 5' 6 (167.6 cm) Current Body Weight: 147 lb 0.8 oz (66.7 kg) Admission Body Weight: 147 lb 0.8 oz (66.7 kg) (standing scale on 10/31) [place] Body Weight: 130 lbs; % [place] Body Weight 113.1 % BMI: 23.7 Adjusted Body Weight: ; No Adjustment BMI Categories: Normal Weight (BMI 18.5-24.9) Nutrition Diagnosis: Predicted inadequate energy intake related to (percieved food allergies/intolerances and plan for open heart surgery) as evidenced by (food 'allergies' limiting menu options; plan for CABG Wednesday) Nutrition Interventions: Food and/or Nutrient Delivery: Continue Current Diet, Start Oral Nutrition Supplement Nutrition Education/Counseling: Survival skills/brief education completed (Monitor for appropriateness of heart healthy diet ed (limited food choices)) Coordination of Nutrition Care: Continue to monitor while inpatient Goals: Pt will consume >50% at meals and ONS Nutrition Monitoring and Evaluation: Behavioral-Environmental Outcomes: Beliefs and Attitutes, Knowledge or Skill Food/Nutrient Intake Outcomes: Diet Advancement/Tolerance, Food and Nutrient Intake, Supplement Intake Physical Signs/Symptoms Outcomes: Biochemical Data, GI Status, Diarrhea, Nutrition Focused PhysicalFindings, Weight, Skin Discharge Planning: Recommend pursue outpatient nutrition counseling Contact: pager [phone] [facility] Work Phone: [phone]) 129-328306-28-2021 Hospital Discharge instructions* Discharge Instr - Lab* Evelyn Erickson RN - 11/18/2020 11:23 AM EDT New Patient Appointment with LUCIANO Johnson CNP Wednesday 11:00 AM Please arrive 15 minutes prior to scheduled appointment time to complete paper work, bring photo IDand insurance cards. [facility] Neurology [place] [address] [facility] [id number] * Discharge Instr - NELLY* Nati Herzog RN - 11/12/2020 10:57 AM EDT Continuity of Care Form Patient Name: Lavelle Rueda : 1945 Admit date: 10/31/2020 Discharge date: 11/18/2020 Code Status Order: Full Code Advance Directives: Advance Care Flowsheet Documentation Date/Time Healthcare Directive Type of Healthcare Directive Copy in Chart Healthcare Agent Appointed Healthcare Agent's Name Healthcare Agent's Phone Number 11/04/20 [phone] Yes, patient has an advance directive for healthcare treatment Durable power of technical sales engineer for health care Yes, copy in chart Adult siblings Nayeli Kandy 10/31/20 0130 Yes, patient has an advance directive for healthcare treatment Durable power of technical sales engineer for health care No, copy requested from family Adult siblings Nayeli Orellana Admitting Physician: Andrew Goldman MD PCP: No primary care provider on file. Discharging Nurse: Nati Discharging Hospital Unit/Room#: [id number] Discharging Unit Emergency Contact: Extended Emergency Contact Information Primary Emergency Contact: Adolph Orellana Relation: Brother/Sister Past Surgical History: Past Surgical History: Procedure Laterality Date APPENDECTOMY 1952 CARDIAC CATHETERIZATION 10/30/2020 CARDIAC CATHETERIZATION 2005 1 stent to LAD Immunization History: Immunization History Administered Date(s) Administered Influenza Virus Vaccine 03/31/2007, 03/28/2008, 03/11/2010, 03/10/2012, 02/16/2013, 02/27/2015 Influenza Whole 01/30/2009 Influenza, High Dose (Fluzone 65 yrs and older) 05/12/2014, 05/11/2016, 02/01/2017, 01/26/2018, 02/24/2019 Influenza, High-dose, Quadv, 65 yrs +, IM (Fluzone) 05/03/2020 Pneumococcal Conjugate 13-valent ([id number]) 04/02/2017 Pneumococcal Polysaccharide ([id number]) 03/31/2007, 08/05/2018 Tdap (Boostrix, Adacel) 06/18/2009 Zoster Live (Zostavax) 01/20/2008 Active Problems: Patient Active Problem List Diagnosis Code Disease R69 NSTEMI (non-ST elevated myocardial infarction) ([facility]) I21.4 Stress hyperglycemia R73.9 S/P CABG (coronary artery bypass graft) Z95.1 Encephalopathy acute G93.40 Isolation/Infection: Isolation No Isolation Patient Infection Status Infection Onset Added Last Indicated Last Indicated By Review Planned Expiration Resolved Resolved By None active Resolved COVID-19 Rule Out 10/31/20 10/31/20 Divya Rodriguez, RN 10/31/20 Rule-Out Test Resulted Pre-Admission Testing. COVID test for screening purposes. No isolation needed this time. Maintain standard precautions and follow current PPE guidelines. Nurse Assessment: Last Vital Signs: BP 135/60 Pulse 75 Temp 97.6 F (36.4 C) (Oral) Resp 18 Ht 5' 6 (1.676 m) Wt 144 lb 10 oz (65.6 kg) SpO2 95% BMI 23.34 kg/m Last documented pain score (0-10 scale): Pain Level: 2 Last Weight: Wt Readings from Last 1 Encounters: 11/12/20 144 lb 10 oz (65.6 kg) Mental Status: oriented and alert IV Access: - None Nursing Mobility/ADLs: Walking Assisted Transfer Assisted Bathing Assisted Dressing Assisted Toileting Assisted Feeding Independent Net Application Architect Independent Med Delivery whole Wound Care Documentation and Therapy: Elimination: Continence: Bowel: Yes Bladder: Yes Urinary Catheter: None Colostomy/Ileostomy/Ileal Conduit: No Date of Last BM: 11/16/2020 Intake/Output Summary (Last 24 hours) at 11/12/2020 1057 Last data filed at 11/12/2020 0500 Gross per 24 hour Intake 260 ml Output Net 260 ml I/O last 3 completed shifts: In: 260 [P.O.:240; I.V.:20] Out: - Safety Concerns: At Risk for Falls Impairments/Disabilities: None Nutrition Therapy: Current Nutrition Therapy: - Oral Diet: Low Sodium (2gm) Routes of Feeding: Oral Liquids: Thin Liquids Daily Fluid Restriction: no Last Modified Barium Swallow with Video (Video Swallowing Test): not done Treatments at the Time of Hospital Discharge: Respiratory Treatments: none Oxygen Therapy: is not on home oxygen therapy. Ventilator: - No ventilator support Rehab Therapies: Physical Therapy and Occupational Therapy Weight Bearing Status/Restrictions: No weight bearing restirctions Other Medical Equipment (for information only, NOT a DME order): walker and bedside commode Other Treatments: none Patient's personal belongings (please select all that are sent with patient): johnny Kolb flowers RN SIGNATURE: CASE MANAGEMENT/SOCIAL WORK SECTION Inpatient Status Date: Readmission Risk Assessment Score: Readmission Risk Risk of Unplanned Readmission: 13 Discharging to Facility/ Agency Name: Address: Phone: Fax: Dialysis Facility (if applicable) Name: Address: Dialysis Schedule: Phone: Fax: Transfer Car Operator [employer] Professional signature: {Esignature:[id number]} PHYSICIAN SECTION Prognosis: Good Condition at Discharge: Stable Rehab Potential (if transferring to Rehab): Good Recommended Labs or Other Treatments After Discharge: PT/OT evaluation and treatment Physician Certification: I certify the above information and transfer of Lavelle Rueda is necessary for the continuing treatment of the diagnosis listed and that she requires [facility] Facility for less 30 days. Update Admission H&P: No change in H&P PHYSICIAN SIGNATURE: * Additional Instructions* Sally Fajardo APRN - AGENT CONTRACT CLERK - 11/14/2020 Images from the original note were not included. [facility]: Cardiothoracic Surgery [address] [facility] #[phone] Notify us if the following occur - Increased tenderness, redness, or swelling of your incisions. - Any drainage from the chest incision (clear or pink drainage from the leg incision or chest tube site is common). - Angina symptoms like those you had before surgery - Sharp pain in chest, neck or shoulder that is worse when taking a deep breath - Persistent fever greater than 100 degrees F or 38 degrees C - Flu-like symptoms-chills, aches, fever, increased fatigue - Heart rate faster than 150 beats/minute with shortness of breath or new irregular heart rate. - Any unusual bleeding - Shortness of breath not relieved by rest - Weight gain of three pounds in one day or five pounds over one week Activity Instructions - Sternal Precautions for 6 weeks - Do not lift, push, or pull anything heavier than 10 pounds for 6 weeks (a gallon of milk weighs 8pounds). - Do not drive until you have been given permission by your surgeon/provider and until you are off narcotic/opioid pain medication - It is ok to sleep on your side if you prop pillows to support your back. Do not sleep on your stomach. - Walk at least 4 times a day, start with 5 minute intervals, increase minutes walked each day. Do not walk on a treadmill - Balance rest and activity during your recovery - Use the stairs, but go slowly, Use the handrail for balance but do not pull yourself up with yourarms. - Shower daily. Do not take your heart medication right before you shower. You could become lightheaded from your blood pressure and heart medication. Always have someone nearby to assist you. - Do not take a tub bath or use a hot tub until all incision are completely healed (no scab). - Put ashlyn hose on in AM and remove at bedtime. Elevate your feet above level of heart when you are sitting. - Cough and deep breathe and use incentive spirometer every hour (10x/hour while awake for two weeks. Other Instructions - Weigh yourself daily at the same time (after you urinate but before breakfast) - Keep a record of your daily weight, and bring to your first post op office visit - Take all medications as prescribed. Bring all your medication bottles to any follow up office visit Incision Care - Wash your sternal incision with anti-bacterial soap and warm water. Pat dry, and leave open to air. Do not use any lotions, or powders, or ointments. documented in this [facility] Work Phone: 1(670) 144-784806-14-2021 Evaluation note* Diagnosis Onset Date Resolution Status Chronic cough chronic Edema chronic Essential (primary) hypertension chronic H/O coronary artery bypass surgery November 04, 2020 chronic Hypokalemia chronic Postoperative atrial fibrillation November 06, 2020 [facility] Work Phone: 1(802) 327-131506-14-2021 Evaluation note* Diagnosis Onset Date Resolution Status Essential (primary) hypertension chronic H/O coronary artery bypass surgery November 04, 2020 chronic History of coronary artery stent placement February chronic HLD (hyperlipidemia) [facility] Work Phone: 1(852) 999-652506-14-2021 Evaluation note* Diagnosis Onset Date Resolution Status Abdominal pain resolved Lesion of pancreas resolved Essential (primary) hypertension chronic H/O coronary artery bypass surgery November 04, 2020 chronic History of coronary artery stent placement February chronic HLD (hyperlipidemia) [facility] Work Phone: 1(199) 625-672906-09-2008 History of Past illness Narrative* Problem Noted Date Resolved Date Coronary atherosclerosis of unspecified type of vessel, karuk or graft 10/31/2007 01/20/2012 Disorder of bone and cartilage, unspecified 06/12/2015 documented as of this encounter (statuses as of 08/18/2021) [facility] History of Past illness Narrative* Problem Noted Date Resolved Date Coronary atherosclerosis of unspecified type of vessel, karuk or graft 10/31/2007 01/20/2012 Disorder of bone and cartilage, unspecified 06/12/2015 documented as of this encounter (statuses as of 08/21/2021) [facility] History of Past illness Narrative* Problem Noted Date Resolved Date Coronary atherosclerosis of unspecified type of vessel, karuk or graft 10/31/2007 01/20/2012 Disorder of bone and cartilage, unspecified 06/12/2015 documented as of this encounter (statuses as of 08/28/2021) [facility] History of Past illness Narrative* Problem Noted Date Resolved Date Coronary atherosclerosis of unspecified type of vessel, karuk or graft 10/31/2007 01/20/2012 Disorder of bone and cartilage, unspecified 06/12/2015 documented as of this encounter (statuses as of 09/01/2021) [facility] History of Past illness Narrative* Problem Noted Date Resolved Date Coronary atherosclerosis of unspecified type of vessel, karuk or graft 10/31/2007 01/20/2012 Disorder of bone and cartilage, unspecified 06/12/2015 documented as of this encounter (statuses as of 09/02/2021) [facility] History of Past illness Narrative* Problem Noted Date Resolved Date Coronary atherosclerosis of unspecified type of vessel, karuk or graft 10/31/2007 01/20/2012 Disorder of bone and cartilage, unspecified 06/12/2015 documented as of this encounter (statuses as of 09/11/2021) [facility] History of Past illness Narrative* Problem Noted Date Resolved Date Coronary atherosclerosis of unspecified type of vessel, karuk or graft 10/31/2007 01/20/2012 Disorder of bone and cartilage, unspecified 06/12/2015 documented as of this encounter (statuses as of 09/12/2021) [facility] History of Past illness Narrative* Problem Noted Date Resolved Date Coronary atherosclerosis of unspecified type of vessel, karuk or graft 10/31/2007 01/20/2012 Disorder of bone and cartilage, unspecified 06/12/2015 documented as of this encounter (statuses as of 09/22/2021) [facility] History of Past illness Narrative* Problem Noted Date Resolved Date Coronary atherosclerosis of unspecified type of vessel, karuk or graft 10/31/2007 01/20/2012 Disorder of bone and cartilage, unspecified 06/12/2015 documented as of this encounter (statuses as of 09/25/2021) [facility] History of Past illness Narrative* Problem Noted Date Resolved Date Coronary atherosclerosis of unspecified type of vessel, karuk or graft 10/31/2007 01/20/2012 Disorder of bone and cartilage, unspecified 06/12/2015 documented as of this encounter (statuses as of 10/02/2021) [facility] History of Past illness Narrative* Problem Noted Date Resolved Date Coronary atherosclerosis of unspecified type of vessel, karuk or graft 10/31/2007 01/20/2012 Disorder of bone and cartilage, unspecified 06/12/2015 documented as of this encounter (statuses as of 10/08/2021) [facility] note* Diagnosis S/P CABG (coronary artery bypass graft)- Primary Postsurgical aortocoronary bypass status Anxiety Anxiety state, unspecified Disease Other ill-defined conditions NSTEMI (non-ST elevated myocardial infarction) ([facility]) Acute myocardial infarction, subendocardial infarction, episode of care unspecified Stress hyperglycemia Other abnormal blood chemistry Encephalopathy acute Encephalopathy, unspecified SVT (supraventricular tachycardia) ([facility]) Other specified cardiac dysrhythmias documented in this encounter [facility] Work Phone: Evaluation note* Diagnosis Pure hypercholesterolemia- Primary Gait difficulty Abnormality of gait S/P CABG x 4 Postsurgical aortocoronary bypass status NSTEMI (non-ST elevated myocardial infarction) ([facility]) Acute myocardial infarction, subendocardial infarction, episode of care unspecified Coronary artery disease without angina pectoris, unspecified vessel or lesion type, unspecified whether karuk or transplanted heart History of CVA (cerebrovascular accident) Transient ischemic attack (TIA), and cerebral infarction without residual deficits Left homonymous hemianopsia Homonymous bilateral field defects in visual field documented in this encounter [facility] note* Diagnosis Leg weakness, bilateral- Primary Other musculoskeletal symptoms referable to limbs History of CVA (cerebrovascular accident) Transient ischemic attack (TIA), and cerebral infarction without residual deficits General weakness Other malaise and fatigue Gait difficulty Abnormality of gait [facility] Leg weakness, bilateral- Primary Other musculoskeletal symptoms referable to limbs History of CVA (cerebrovascular accident) Transient ischemic attack (TIA), and cerebral infarction without residual deficits General weakness Other malaise and fatigue Gait difficulty Abnormality of gait [facility] Leg weakness, bilateral- Primary Other musculoskeletal symptoms referable to limbs History of CVA (cerebrovascular accident) Transient ischemic attack (TIA), and cerebral infarction without residual deficits General weakness Other malaise and fatigue Gait difficulty Abnormality of gait [facility] Diagnosis Leg weakness, bilateral- Primary Other musculoskeletal symptoms referable to limbs History of CVA (cerebrovascular accident) Transient ischemic attack (TIA), and cerebral infarction without residual deficits General weakness Other malaise and fatigue Gait difficulty Abnormality of gait [facility]* Diagnosis Left ankle swelling- Primary Effusion of ankle and foot joint Foot swelling Swelling of limb [facility] Diagnosis Frequent urination- Primary Urinary frequency Hallucination Hallucinations [facility] Diagnosis Urinary frequency [facility]* Diagnosis Acquired hypothyroidism- Primary Unspecified hypothyroidism Essential hypertension Unspecified essential hypertension History of CVA (cerebrovascular accident) Transient ischemic attack (TIA), and cerebral infarction without residual deficits Anxiety and depression Dysthymic disorder Gastroesophageal reflux disease without esophagitis Esophageal reflux Encounter for long-term current use of medication [facility]* Diagnosis Depression, unspecified depression type [facility]* Diagnosis Elevated liver enzymes- Primary Other nonspecific abnormal serum enzyme levels Need for COVID-19 vaccine Osteoporosis, unspecified osteoporosis type, unspecified pathological fracture presence Encounter for immunization Need for other specified prophylactic vaccination against single bacterial disease [facility]* Diagnosis Elevated liver enzymes- Primary Other nonspecific abnormal serum enzyme levels [facility]* Diagnosis Viral URI with cough- Primary Acute upper respiratory infections of unspecified site Acute conjunctivitis of both eyes, unspecified acute conjunctivitis type [facility]* Diagnosis Acute cough- Primary Viral URI with cough Acute upper respiratory infections of unspecified site SOBOE (shortness of breath on exertion) Shortness of breath Nausea Nausea alone documented in this encounter [facility] note* Diagnosis Onset Date Resolution Status Colitis acute Fracture of pubic ramus acut e Hepatic lesion acute Lesion of pancreas acute Leukocytosis acute [facility] Work Phone: evaluation note* Diagnosis Recurrent episodes of unresponsiveness- Primary History of CVA (cerebrovascular accident) Transient ischemic attack (TIA), and cerebral infarction without residual deficits Left homonymous hemianopsia Homonymous bilateral field defects in visual field Stenosis of intracranial vessel Cognitive impairment, mild, so stated Mild cognitive impairment, so stated Recurrent vomiting Vomiting alone Lower abdominal pain Abdominal pain, other specified site documented in this encounter [facility] note* Diagnosis Onset Date Resolution Status Colitis acute Debility acute Fracture of pubic ramus acut e Hepatic lesion acute Lesion of pancreas acute Leukocytosis acute Nausea & vomiting acute Hypokalemia chronic [facility] Work Phone: evaluation note* Diagnosis Gait difficulty- Primary Abnormality of gait Generalized weakness Other malaise and fatigue Colitis Other and unspecified noninfectious gastroenteritis and colitis documented in this encounter [facility] note* Diagnosis Acute colitis- Primary Other and unspecified noninfectious gastroenteritis and colitis Pancreatic lesion Unspecified disease of pancreas Infection in abdomen (HCC) Unspecified peritonitis documented in this encounter [facility] note* Diagnosis Onset Date Resolution Status Debility acute Lesion of pancreas acute Colitis resolved Hepatic lesion resolved Hypokalemia resolved Leukocytosis resolved Nausea & vomiting resolved H/O coronary artery bypass surgery November 04, 2020 acute History of coronary artery stent placement February acute Essential (primary) hypertension chronic [facility] Work Phone: Evaluation note* Diagnosis Onset Date Resolution Status Debility acute Lesion of pancreas acute Colitis resolved Hepatic lesion resolved Hypokalemia resolved Leukocytosis resolved Nausea & vomiting resolved H/O coronary artery bypass surgery November 04, 2020 acute History of coronary artery stent placement February acute Essential (primary) hypertension chronic Lesion of pancreas acute 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 Hallucinations due to late onset dementia (HCC) Vitamin D deficiency Vitamin B12 deficiency Other B-complex deficiencies documented in this encounter [facility] note* Diagnosis Mixed Alzheimer's and vascular dementia (HCC)- Primary Hallucinations due to late onset dementia (HCC) Vitamin D deficiency Vitamin B12 deficiency Other B-complex deficiencies documented in this encounter [facility] note* Diagnosis Mixed Alzheimer's and vascular dementia (HCC) documented in this encounter [facility] note* Diagnosis Mixed Alzheimer's and vascular dementia (HCC) documented in this encounter [facility] note* Diagnosis Mixed Alzheimer's and vascular dementia (HCC) documented in this encounter [facility] note* Diagnosis Mixed Alzheimer's and vascular dementia (HCC) documented in this encounter [facility] note* Diagnosis Anxiety and depression Dysthymic disorder documented in this encounter [facility] note* Diagnosis Elevated liver enzymes Other nonspecific abnormal serum enzyme levels documented in this encounter [facility] note* Diagnosis Elevated liver enzymes Other nonspecific abnormal serum enzyme levels documented in this encounter [facility] note* Diagnosis Mixed Alzheimer's and vascular dementia (HCC)- Primary Weight gain Other symptoms concerning nutrition, metabolism, and development Debility Unspecified debility Medication noncompliance due to cognitive impairment documented in this encounter [facility] note* Diagnosis Onset Date Resolution Status Abdominal pain resolved Lesion of pancreas resolved [facility] Work Phone: Evaluation note* Diagnosis Mixed Alzheimer's and vascular dementia (HCC) documented in this encounter [facility] note* Diagnosis Altered mental status, unspecified altered mental status type- Primary Urinary tract infection without hematuria, site unspecified documented in this encounter [facility] note* Diagnosis Mixed Alzheimer's and vascular dementia (HCC)- Primary Alzheimer's disease documented in this encounter [facility] note* Diagnosis Gastroesophageal reflux disease without esophagitis Esophageal reflux documented in this encounter [facility] note* Diagnosis Mixed Alzheimer's and vascular dementia (HCC)- Primary documented in this encounter [facility] note* Diagnosis Osteoporosis- Primary Osteoporosis, unspecified Essential hypertension- Primary Unspecified essential hypertension Left homonymous hemianopsia Homonymous bilateral field defects in visual field Mixed Alzheimer's and vascular dementia (HCC) Alzheimer's disease documented in this encounter [facility] note* Diagnosis Osteoporosis- Primary Osteoporosis, unspecified Anxiety and depression Dysthymic disorder [facility]* Diagnosis Osteoporosis- Primary Osteoporosis, unspecified Acute cough SOBOE (shortness of breath on exertion) Shortness of breath [facility]* Diagnosis Osteoporosis- Primary Osteoporosis, unspecified Left ankle swelling Effusion of ankle and foot joint Foot swelling Swelling of limb documented in this encounter [facility]* Diagnosis Osteoporosis- Primary Osteoporosis, unspecified Skin yeast infection- Primary Candidiasis of skin and nails documented in this encounter [facility]* Diagnosis Osteoporosis- Primary Osteoporosis, unspecified Depression, unspecified depression type documented in this encounter [facility] note* Diagnosis Mixed Alzheimer's and vascular dementia (HCC)- Primary Apathetic behavior due to dementia (HCC) Hallucinations due to late onset dementia (HCC) Vitamin D deficiency DNR (do not resuscitate) discussion Mixed Alzheimer's and vascular dementia (HCC)- Primary Hallucinations due to late onset dementia (HCC) Vitamin D deficiency Vitamin B12 deficiency Other B-complex deficiencies Mixed Alzheimer's and vascular dementia (HCC)- Primary Weight gain Other symptoms concerning nutrition, metabolism, and development Debility Unspecified debility Medication noncompliance due to cognitive impairment Mixed Alzheimer's and vascular dementia (HCC)- Primary documented in this encounter [facility] note* Diagnosis Mixed Alzheimer's and vascular dementia (CMS/HCC)- Primary Apathetic behavior due to dementia (CMS/HCC) Hallucinations due to late onset dementia (CMS/HCC) Vitamin D deficiency DNR (do not resuscitate) discussion Mixed Alzheimer's and vascular dementia (CMS/HCC)- Primary Hallucinations due to late onset dementia (CMS/HCC) Vitamin D deficiency Vitamin B12 deficiency Other B-complex deficiencies Mixed Alzheimer's and vascular dementia (CMS/HCC)- Primary Weight gain Other symptoms concerning nutrition, metabolism, and development Debility Unspecified debility Medication noncompliance due to cognitive impairment Mixed Alzheimer's and vascular dementia (CMS/HCC)- Primary Mixed Alzheimer's and vascular dementia (CMS/HCC)- Primary [facility] instructions* Attachments The following attachments cannot be sent through Care Everywhere. * Urinary Tract Infection, [facility] ([place] Diagnostic Procedure Only (Urgent) - Closed Specialty Diagnoses / Procedures Referred By Contac t Referred To Contact XR IMAGING Diagnoses Foot swelling Procedures XR FOOT GENERAL 3V AP/LAT/OBL LEFT RADEX FOOT COMPLETE MINIMUM 3 VIEWS Cayla Jhaveri APRN.AGENT CONTRACT CLERK [address] [place] [address] Xr Imaging Referral ID Status Reason Start Date Expiration Date V isits Requested Visits Authorized [id number] Closed Auto-Generate d Referral 11/04/2021 12/04/2022 1 1 * Diagnostic Procedure Only (Urgent) - Closed Specialty Diagnoses / Procedures Referred By Contac t Referred To Contact XR IMAGING Diagnoses Left ankle swelling Procedures XR ANKLE GENERAL 3V AP/LAT/OBL LEFT RADEX ANKLE COMPLETE MINIMUM 3 VIEWS Cayla Jhaveri APRN.AGENT CONTRACT CLERK [address] [place] [address] Xr Imaging Referral ID Status Reason Start Date Expiration Date V isits Requested Visits Authorized [id number] Closed Auto-Generate d Referral 11/04/2021 12/04/2022 1 1 [facility] for referral (narrative)* Diagnostic Procedure Only (Routine) - Authorized Specialty Diagnoses / Procedures Referred By Contac t Referred To Contact US IMAGING Diagnoses Elevated liver enzymes Procedures US ABD RT UPPER QUADRANT US ABDOMINAL REAL TIME W/IMAGE LIMITED Margo Marinelli APRN.PATIENT CARE SECRETARY [address] [place] [address] Us Imaging Referral ID Status Reason Start Date Expiration Date Visits Requested Visits Authorized [id number] Authorized Auto-Generat ed Referral 03/30/2022 04/29/2023 1 1 [facility] for referral (narrative)* Diagnostic Procedure Only (Urgent) - Closed Specialty Diagnoses / Procedures Referred By Contac t Referred To Contact XR IMAGING Diagnoses Foot swelling Procedures XR FOOT GENERAL 3V AP/LAT/OBL LEFT RADEX FOOT COMPLETE MINIMUM 3 VIEWS Cayla Jhaveri APRN.AGENT CONTRACT CLERK [address] [place] [address] [place] [address] Referral ID Status Reason Start Date Expiration Date V isits Requested Visits Authorized [id number] Closed Auto-Generate d Referral 11/04/2021 12/04/2022 1 1 * Diagnostic Procedure Only (Urgent) - Closed Specialty Diagnoses / Procedures Referred By Contac t Referred To Contact XR IMAGING Diagnoses Left ankle swelling Procedures XR ANKLE GENERAL 3V AP/LAT/OBL LEFT RADEX ANKLE COMPLETE MINIMUM 3 VIEWS Cayla Jhaveri APRN.AGENT CONTRACT CLERK [address] [place] [address] [place] [address] Referral ID Status Reason Start Date Expiration Date V isits Requested Visits Authorized [id number] Closed Auto-Generate d Referral 11/04/2021 12/04/2022 1 1 [facility] for referral (narrative)No reason for referral information [facility]: Reason for visit Narrative* Diagnostic Procedure Only (Routine) - Authorized Specialty Diagnoses / Procedures Referred By Contac t Referred To Contact US IMAGING Diagnoses Elevated liver enzymes Procedures US ABD RT UPPER QUADRANT US ABDOMINAL REAL TIME W/IMAGE LIMITED Margo Marinelli APRN.PATIENT CARE SECRETARY [address] [place] [address] [place] [address] Referral ID Status Reason Start Date Expiration Date Visits Requested Visits Authorized [id number] Authorized Auto-Generat ed Referral 03/30/2022 04/29/2023 1 1 [facility] for visit Narrative* Diagnostic Procedure Only (Urgent) - Closed Specialty Diagnoses / Procedures Referred By Contac t Referred To Contact XR IMAGING Diagnoses Foot swelling Procedures XR FOOT GENERAL 3V AP/LAT/OBL LEFT RADEX FOOT COMPLETE MINIMUM 3 VIEWS Cayla Jhaveri APRN.AGENT CONTRACT CLERK [address] [place] [address] [place] [address] Referral ID Status Reason Start Date Expiration Date V isits Requested Visits Authorized [id number] Closed Auto-Generate d Referral 11/04/2021 12/04/2022 1 1 [facility] Advance Directives No Advanced Directives Records FoundDocuments on File Type Date Recorded Patient Hand Edger Expl anation ACP-Advance Directive 10/31/2020 12:00 AM Latest Code Status on File Code Status Date Activated Date Inactivated Comments Full Code 11/17/2020 6:58 PM Full Code 11/04/2020 12:12 PM 11/17/2020 6:58 PM Full Code 10/31/2020 2:41 AM 11/04/2020 12:12 PM Documents on File Type Date Recorded Patient Hand Edger Expl anation Advance Directive(s) 06/05/2019 10:07 AM Advance Directive(s) 06/05/2019 10:05 AM Advance Directive(s) 05/23/2019 3:26 PM Advance Directive(s) 07/11/2018 9:37 AM Documents on File Type Date Recorded Patient Hand Edger Expl anation Advance Directive(s) 06/05/2019 10:07 AM Advance Directive(s) 06/05/2019 10:05 AM Advance Directive(s) 05/23/2019 3:26 PM Advance Directive(s) 07/11/2018 9:37 AM Advance Directive Response Recorded Date/ Time Living Will Yes March 07 1:44pm Power of Medical Policy Specialist Yes March 07, 2021 1:44pm Documents on File Type Date Recorded Patient Hand Edger Expl anation Advance Directive(s) 06/05/2019 10:05 AM Documents on File Type Date Recorded Patient Hand Edger Expl anation ACP-Power of Medical Policy Specialist 03/16/2022 10:16 AM Financial POA - 09/28/2018 ACP-Advance Directive 10/31/2020 Latest Code Status on File Code Status Date Activated Date Inactivated Comments Full Code 11/17/2020 6:58 PM 11/19/2020 6:45 PM Documents on File Type Date Recorded Patient Hand Edger Expl anation Advance Directive(s) 06/05/2019 10:05 AM Advance Directive Response Recorded Date/ Time Living Will Yes May 22, 2 022 2:47pm Power of Medical Policy Specialist Yes May 22, 2022 2:47pm Name of Medical Power of Medical Policy Specialist IRVIN ORELLANA May 22, 2022 2:47pm Advance Directive Response Recorded Date/ Time Name of Medical Power of Medical Policy Specialist IRVIN ORELLANA May 22, 2022 7:06pm Living Will Yes May 22, 7:06pm Power of Medical Policy Specialist Yes May 22, 2022 7:06pm Advance Directive Response Recorded Date/ Time Name of Medical Power of Medical Policy Specialist IRVIN ORELLANA May 22, 2022 8:06pm Living Will Yes May 22, 8:06pm Power of Medical Policy Specialist Yes May 22, 2022 8:06pm Documents on File Type Date Recorded Patient Hand Edger Expl anation Advance Directives and Living Will 10/27/2022 3:31 PM Living Will 10-28-19 06 Advance Directives and Living Will 03/23/2022 Financial POA Latest Code Status on File Code Status Date Activated Date Inactivated Comments DNR-CCA 03/30/2022 12:17 PM Documents on File Type Date Recorded Patient Hand Edger Expl anation Power of Medical Policy Specialist 12/17/2022 9:10 AM Healt hcare POA/HIPAA Authorization 09-28-2018 Power of Medical Policy Specialist 12/17/2022 9:10 AM Finan cial POA 10-08-2018 Advance Directives and Living Will 10/27/2022 3:31 PM Living Will 10-28-19 06 Advance Directives and Living Will 03/23/2022 Financial POA Advance Directive Response Recorded Date/ Time Living Will Yes May 22, 8:06pm Power of Medical Policy Specialist Yes May 22, 2022 8:06pm Documents on File Type Date Recorded Patient Hand Edger Expl anation Power of Medical Policy Specialist 12/17/2022 9:10 AM Healt hcare POA/HIPAA Authorization 09-28-2018 Power of Medical Policy Specialist 12/17/2022 9:10 AM Finan cial POA 10-08-2018 Advance Directives and Living Will 10/27/2022 3:31 PM Living Will 10-28-19 06 Advance Directives and Living Will 03/23/2022 Financial POA Latest Code Status on File Code Status Date Activated Date Inactivated Comments DNR-CCA 03/30/2022 12:17 PM Advance Directive Response Recorded Date/ Time Living Will Yes May 22, 7:06pm Power of Medical Policy Specialist Yes May 22, 2022 7:06pm Date Activated Date Inactivated Comments 03/30/2022 12:17 PM Documents on File Type Date Recorded Patient Hand Edger Expl anation Advance Directive(s) 12/27/2023 12:12 PM Advance Directive(s) 06/05/2019 10:05 AM Date Activated Date Inactivated Comments 03/30/2022 12:17 PM Documents on File Type Date Recorded Patient Hand Edger Expl anation Advance Directive(s) 12/27/2023 12:12 PM Advance Directive(s) 06/05/2019 10:05 AM Advance Directive Response Recorded Date/ Time Do you have a Healthcare Power of Medical Policy Specialist? Yes December 19, 2024 10:19pm Summary Purpose Family History No Family History Records Found Relationship Condition Age at Onset Recorded Date/T suzanne mother Congestive heart failure Unknown Relationship Condition Age at Onset Recorded Date/T suzanne father Rheumatoid arthritis Unknown mother Congestive heart failure Unknown brother High blood cholesterol Unknown uncle Cardiac disease Unknown Reason for Referral Specialty Diagnoses / Procedures Referred By Meir aguilar Referred To Contact [facility] Diagnoses Leg weakness, bilateral History of CVA (cerebrovascular accident) General weakness Gait difficulty Procedures PT REHAB FOLLOW UP ORDER THERAPEUTIC EXERCISES RE, EA 15 MIN. Pt [facility] [address] [place] [address] [facility] [address] [address] Referral ID Status Reason Start Date Expiration Date Visits Requested Visits Authorized [id number] Pending Review PCP Requested Referral Auto-Generate d Referral 09/11/2021 12/10/2021 1 1 Specialty Diagnoses / Procedures Referred By Meir aguilar Referred To Contact Margo Marinelli APRN.PATIENT CARE SECRETARY [address] [place] [address] Referral ID Status Reason Start Date Expiration Date Visits Re quested Visits Authorized [id number] Denied 1 1 Specialty Diagnoses / Procedures Referred By Meir aguilar Referred To Contact [facility] Diagnoses Gait difficulty Generalized weakness Colitis Procedures CONSULT TO PHYSICAL THERAPY PHYSICAL THERAPY EVALUATION HIGH COMPLEX 45 MINS Margo Marinelli APRN.PATIENT CARE SECRETARY [address] [place] [address] [facility] [address] [place] [address] Referral ID Status Reason Start Date Expiration Date Visits Requested Visits Authorized [id number] Pending Review Auto-Generat ed Referral 07/02/2022 07/02/2023 1 1 Specialty Diagnoses / Procedures Referred By Contac t Referred To Contact CT IMAGING Diagnoses Acute colitis Pancreatic lesion Infection in abdomen (HCC) Procedures CT ABD/PEL W IVCON CT ABD & PELVIS W/CONTRAST Jd Barger MD [address] [place] [address] Ct Imaging Referral ID Status Reason Start Date Expiration Date Visits Requested Visits Authorized [id number] Pending Review Auto-Generat ed Referral 07/13/2022 07/23/2023 1 1 Specialty Diagnoses / Procedures Referred By Contac t Referred To Contact Diagnoses Mixed Alzheimer's and vascular dementia (HCC) Fatuma Johnson MD [address] [address] Referral ID Status Reason Start Date Expiration Date Visits Re quested Visits Authorized [id number] Closed 1 1 Referral ID Status Reason Start Date Expiration Date Visits Re quested Visits Authorized [id number] Closed 1 1 Specialty Diagnoses / Procedures Referred By Contac t Referred To Contact Diagnoses Mixed Alzheimer's and vascular dementia (HCC) Fatuma Johnson MD [address] [address] Referral ID Status Reason Start Date Expiration Date V isits Requested Visits Authorized [id number] Pending Review 1 1 Specialty Diagnoses / Procedures Referred By Contac t Referred To Contact Diagnoses Mixed Alzheimer's and vascular dementia (HCC) Opal Booth, ADJUNCT INSTRUCTOR IN ECONOMICS - [employer] [address] [place] [address] Referral ID Status Reason Start Date Expiration Date V isits Requested Visits Authorized [id number] Pending Review 01/25/2024 07/23/2024 1 1 Chief Complaint and Reason for Visit Chief Complaint 6 M FU EORDER FROM [facility] Reason for Visit Chronic cough Edema Essential (primary) hypertension H/O coronary artery bypass surgery Hypokalemia Postoperative atrial fibrillation Chief Complaint INFECTIOUS COLITIS Reason for Visit Colitis Fracture of pubic ramus Hepatic lesion Lesion of pancreas Leukocytosis Chief Complaint INFECTIOUS COLITIS INFECTIOUS COLITIS INFECTIOUS COLITIS INFECTIOUS COLITIS INFECTIOUS COLITIS INFECTIOUS COLITIS INFECTIOUS COLITIS INFECTIOUS COLITIS INFECTIOUS COLITIS INFECTIOUS COLITIS INFECTIOUS COLITIS Reason for Visit Colitis Debility Fracture of pubic ramus Hepatic lesion Lesion of pancreas Leukocytosis Nausea & vomiting Hypokalemia Chief Complaint INFECTIOUS COLITIS INFECTIOUS COLITIS INFECTIOUS COLITIS INFECTIOUS COLITIS INFECTIOUS COLITIS INFECTIOUS COLITIS INFECTIOUS COLITIS INFECTIOUS COLITIS INFECTIOUS COLITIS INFECTIOUS COLITIS INFECTIOUS COLITIS INFECTIOUS COLITIS INFECTIOUS COLITIS 1 Y FU ACUTE COLITIS GAIT,WEAKNESS,COLITIS RX HERE Reason for Visit Debility Lesion of pancreas Colitis Hepatic lesion Hypokalemia Leukocytosis Nausea & vomiting H/O coronary artery bypass surgery History of coronary artery stent placement Essential (primary) hypertension Chief Complaint INFECTIOUS COLITIS INFECTIOUS COLITIS INFECTIOUS COLITIS INFECTIOUS COLITIS INFECTIOUS COLITIS INFECTIOUS COLITIS INFECTIOUS COLITIS INFECTIOUS COLITIS INFECTIOUS COLITIS INFECTIOUS COLITIS INFECTIOUS COLITIS INFECTIOUS COLITIS INFECTIOUS COLITIS 1 Y FU [facility] FU INT LABS GAIT,WEAKNESS,COLITIS RX HERE INT LABS Reason for Visit Debility Lesion of pancreas Colitis Hepatic lesion Hypokalemia Leukocytosis Nausea & vomiting H/O coronary artery bypass surgery History of coronary artery stent placement Essential (primary) hypertension Lesion of pancreas Chief Complaint INFECTIOUS COLITIS INFECTIOUS COLITIS INFECTIOUS COLITIS INFECTIOUS COLITIS INFECTIOUS COLITIS INFECTIOUS COLITIS INFECTIOUS COLITIS INFECTIOUS COLITIS INFECTIOUS COLITIS INFECTIOUS COLITIS INFECTIOUS COLITIS INFECTIOUS COLITIS INFECTIOUS COLITIS 1 Y FU [facility] FU INT LABS GAIT,WEAKNESS,COLITIS RX HERE INT LABS PANCREATIC LESION Reason for Visit Debility Lesion of pancreas Colitis Hepatic lesion Hypokalemia Leukocytosis Nausea & vomiting H/O coronary artery bypass surgery History of coronary artery stent placement Essential (primary) hypertension Lesion of pancreas Chief Complaint INT LABS PANCREATIC LESION GAIT,WEAKNESS,COLITIS RX HERE 6 M FU Reason for Visit Essential (primary) hypertension H/O coronary artery bypass surgery History of coronary artery stent placement HLD (hyperlipidemia) Chief Complaint 6 MO FU Reason for Visit Abdominal pain Lesion of pancreas Chief Complaint 6 MO FU 6 M FU Unspecified abdominal pain Reason for Visit Abdominal pain Lesion of pancreas Essential (primary) hypertension H/O coronary artery bypass surgery History of coronary artery stent placement HLD (hyperlipidemia) Chief Complaint Admit Date Amb Documentation September 04, 2024 10: 19am 6 M FU September 26, 2024 1:11pm ECTOPIC BEATS October 06, 2024 11:47 am Reason for Visit Admit Date Ectopic beats September 26, 2024 1:11pm Essential (primary) hypertension September 1:11pm H/O coronary artery bypass surgery September 262024 1:11pm History of coronary artery stent placeme nt September 26, 2024 1:11pm HLD (hyperlipidemia) September 26, 2024 1:11p m Chief Complaint Admit Date Amb Documentation September 04, 2024 10: 19am 6 M FU September 26, 2024 1:11pm ECTOPIC BEATS October 06, 2024 11:47 am ECTOPIC BEATS October 06, 2024 12:07 pm 6 M FU November 01, 2024 1:24 pm Chief Complaint Admit Date Amb Documentation September 04, 2024 10: 19am 6 M FU September 26, 2024 1:11pm ECTOPIC BEATS October 06, 2024 11:47 am ECTOPIC BEATS October 06, 2024 12:07 pm 6 M FU November 01, 2024 1:24 pm INT LAB ORDERS November 01, 2024 2:08 pm Reason for Visit Admit Date Ectopic beats September 26, 2024 1:11pm Essential (primary) hypertension September 1:11pm H/O coronary artery bypass surgery September 262024 1:11pm History of coronary artery stent placeme nt September 26, 2024 1:11pm HLD (hyperlipidemia) September 26, 2024 1:11p m Fatty liver November 01, 2024 1:24 pm 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, 2024 1:24pm Chief Complaint Admit Date Amb Documentation September 04, 2024 10: 19am 6 M FU September 26, 2024 1:11pm ECTOPIC BEATS October 06, 2024 11:47 am ECTOPIC BEATS October 06, 2024 12:07 pm 6 M FU November 01, 2024 1:24 pm INT LAB ORDERS November 01, 2024 2:08 pm nosebleed December 19, 2024 9:07 pm Chief Complaint Admit Date 6 M FU September 26, 2024 1:11pm ECTOPIC BEATS October 06, 2024 11:47 am ECTOPIC BEATS October 06, 2024 12:07 pm 6 M FU November 01, 2024 1:24 pm INT LAB ORDERS November 01, 2024 2:08 pm nosebleed December 19, 2024 9:07 pm FATTY LIVER January 18, 2025 9: 51am Chief Complaint Admit Date 6 M FU November 01, 2024 1:24 pm INT LAB ORDERS November 01, 2024 2:08 pm nosebleed December 19, 2024 9:07 pm FATTY LIVER January 18, 2025 9: 51am EORDERS February 15, 2025 10:40am Reason for Visit Admit Date Fatty liver November 01, 2024 1:24 pm 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, 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 Health Concerns Infection Onset Date Last Indicated Resolved Time COVID-19 Rule-Out 05/02/2022 05/02/2022 Infection Onset Date Last Indicated Resolved Time COVID-19 Rule-Out 05/02/2022 05/02/2022 05/03/2022 4:43 AM EST Additional Source Comments Reason for Visit (unrecogniz ed section and content) Reason Comments Reason Onset Date Comments Refill Request 08/18/2021 Reason Onset Date Comments Refill Request 08/21/2021 Reason Comments F/U 3 Month Reason Comments Results, Lab Reason Comments PT Progress Note Reason Onset Date Comments Refill Request 09/12/2021 Reason Onset Date Comments Refill Request 09/19/2021 Patient Update 09/19/2021 Reason Comments Physical Therapy Reason Comments Prescription Refills Reason Comments PT Discharge Reason Comments Swelling Pt reported redness, swelling x1 day (LT) lower leg, denied pain Reason Comments UTI frequent urination, and hallucinations x 1 day Reason Comments Patient Update Orders Reason Comments UTI Reason Comments F/U 6 months Reason Comments Refill Request Reason Comments Patient Update Reason Comments Abnormal Lab Reason Comments Results Reason Comments Eye Problem Bilateral red and ir ritated eyes x 3 days Reason Comments Cough Nausea, laryngitis, diarrhea on and off for 3 weeks Reason Comments Follow Up Reason Comments Follow HH orders Reason Comments Physical Therapy Plan of Care Reason Comments Medication Question Reason Comments OT plan of care Reason Comments Therapy Order Request Reason Comments F/U 6 months Discharge [facility] 023 Reason Comments Patient Question Reason Onset Date Comments Refill Request 09/16/2022 Reason Onset Date Comments Refill Request 09/23/2022 Reason Comments Memory Loss Reason Comments [facility] Reason Comments Med Refill Reason Comments Memory Loss Reason Onset Date Comments Appointment 06/07/2023 Reason Onset Date Comments Appointment Request 06/28/2023 Reason Onset Date Comments Refill Request 08/02/2023 Reason Onset Date Comments Med Refill 11/04/2023 Reason Comments Altered Mental Status Reason Comments Patient Update possible continued U TI Request Outside Medical Records Reason Onset Date Comments Refill Request 12/27/2023 Reason Onset Date Comments Refill Request 01/05/2024 Reason Comments Memory Loss Reason Comments F/U 6 months Labs prior Reason Onset Date Comments Refill Request 03/10/2024 Reason Comments Rash under bilateral domo st, burning and itching x 5 days Reason Onset Date Comments Refill Request 06/08/2024 Ordered Prescriptions (unrec ognized section and content) Prescription Sig Dispensed Refills Start Date End Da te aspirin 325 MG tablet Take 1 tablet by mouth daily 30 tablet 3 11/19/2020 polyethylene glycol (GLYCOLAX) 17 g packet Take 17 g by mouth daily as needed for Constipation 527 g 1 11/14/2020 12/14/2020 pantoprazole (PROTONIX) 40 MG tablet Take 1 tablet by mouth every morning (before breakfast) 30 tablet 3 11/15/2020 miconazole (MICOTIN) 2 % powder Apply topically 2 times daily. 45 g 1 11/14/2020 melatonin 3 MG TABS tablet Take 1 tablet by mouth nightly 3 11/14/2020 ibuprofen (ADVIL;MOTRIN) 800 MG tablet Take 1 tablet by mouth every 8 hours as needed for Pain 120 tablet 3 11/14/2020 calcium carbonate (TUMS) 500 MG chewable tablet Take 1 tablet by mouth 3 times daily as needed for Heartburn 0 11/14/2020 12/14/2020 atorvastatin (LIPITOR) 80 MG tablet Take 1 tablet by mouth nightly 30 tablet 3 11/14/2020 amiodarone (PACERONE) 400 MG tablet Take 1 tablet by mouth daily 42 tablet 0 11/14/2020 12/26/2020 aspirin 325 MG EC tablet Take 1 tablet by mouth daily 30 tablet 3 11/15/2020 11/18/2020 Scheduled Active and Recently Administ ered Medications (unrecognized section and content) Medication Order 11/17/2020 11/18/2020 11/19/2020 acetaminophen (TYLENOL) tablet 1,000 mg 1,000 mg, Oral, EVERY 8 HOURS, First dose on 11/04/20 at 1230, Maximum dose of acetaminophen is 4000 mg from all sources in 24 hours., Post-op 0421 (Given - Provider: Anali Britton RN)1344 (Not Given - Provider: Mamie Engle RN - Reason: Contraindicated - Comment: patient not medically stable)2100 (Given - Provider: Cortez Liz RN) 0615 (Given - Provider: Ashley Acuna RN)113 (Given - Provider: Nati Herzog RN)1952 (Given - Provider: Ashley Acuna RN) 0702 (Given - Provider: Chavo Kim RN)121 (Given - Provider: Chely Young RN)2030 (Due) amiodarone (CORDARONE) tablet 200 mg 200 mg, Oral, 2 TIMES DAILY, First dose on Wed11/11/20 at 1415 0924 (Given - Provider: Mamie Engle RN)2099 (Given - Provider: Cortez Liz RN) 08 (Given - Provider: Nati Herzog RN)1952 (Given - Provider: Ashley Acuna RN) 09 (Given - Provider: Chely Young RN)2099 (Due) amLODIPine (NORVASC) tablet 5 mg 5 mg, Oral, DAILY, First dose on Wed11/05/20 at 1115 0900 (Automatically Held) 0900 (Automatically Held) 0900 (Automatically Held) aspirin EC tablet 325 mg (CANCELED) 325 mg, Oral, DAILY, First dose on Wed11/05/20 at 0900 0924 (Given - Provider: Mamie Engle RN) aspirin tablet 325 mg 325 mg, Oral, DAILY, First dose on Wed11/18/20 at 0900, CABG 11/04 0827 (Given - Provider: Nati Herzog RN) 09 (Given - Provider: Chely Young RN) atorvastatin (LIPITOR) tablet 80 mg 80 mg, Oral, NIGHTLY, First dose on Wed10/31/20 at 2100 2100 (Given - Provider: Cortez Liz RN) 1952 (Given - Provider: Ashley Acuna RN) 2100 (Due) enoxaparin (LOVENOX) injection 40 mg (CANCELED) 40 mg, Subcutaneous, DAILY, First dose on Wed11/07/20 at 0900 0923 (Given - Provider: Mamie Engle RN) enoxaparin (LOVENOX) injection 40 mg 40 mg, Subcutaneous, DAILY, First dose on Wed11/18/20 at 0900 0829 (Given - Provider: Nati Herzog RN) 09 (Given - Provider: Chely Young RN) furosemide (LASIX) tablet 40 mg 40 mg, Oral, DAILY, First dose on Wed11/15/20 at 0900 0924 (Given - Provider: Mamie Engle RN) 0827 (Given - Provider: Nati Herzog RN) 910 (Given - Provider: Chely Young RN) lidocaine 4 % external patch 1 patch 1 patch, Transdermal, Administer over 12 Hours, DAILY, First dose on Wed11/05/20 at 0545, Apply patch to chest. Patch may remain in place for up to 12 hours in any 24 hour period. 922 (Patch Applied - Provider: Mamie Engle RN - Comment: chest)2122 (Patch Removed - Provider: Cortez Liz RN) 827 (Patch Applied - Provider: Nati Herzog RN - Comment: chest)1952 (Patch Removed - Provider: Ashley Acuna RN) 910 (Patch Applied - Provider: Chely Young RN - Comment: chest)2110 (Due: Patch Removed - Provider: Chely Young RN) melatonin tablet 3 mg 3 mg, Oral, NIGHTLY, First dose on Wed10/31/20 at 2100 2100 (Given - Provider: Cortez Liz RN) 1952 (Given - Provider: Ashley Acuna RN) 2099 (Due) miconazole (MICOTIN) 2 % powder Topical, 2 TIMES DAILY, First dose on Wed11/13/20 at 0900, Apply to skin folds 0924 (Given - Provider: Mamie Engle RN)2100 (Given - Provider: Cortez Liz RN) 08 (Given - Provider: Nati Herzog RN)1952 (Given - Provider: Ashley Acuna RN) 911 (Given - Provider: Chely Young RN)2099 (Due) ondansetron (ZOFRAN) tablet 4 mg (COMPLETED) 4 mg, Oral, ONCE, On Wed11/17/20 at 1015, For 1 dose 1110 (Given - Provider: Mamie Engle, SOFIA) pantoprazole (PROTONIX) tablet 40 mg 40 mg, Oral, DAILY BEFORE BREAKFAST, First dose on Wed11/06/20 at 0700, Do not crush or break. 0624 (Given - Provider: Anali Britton, SOFIA) 0615 (Given - Provider: Ashley Acuna, RN) 0702 (Given - Provider: Chavo Kim RN) polyethylene glycol (GLYCOLAX) packet 17 g 17 g, Oral, DAILY, First dose on Wed11/04/20 at 1230, Post-op 0924 (Not Given - Provider: Mamie Engle RN - Reason: Patient/family refused) 08 (Given - Provider: Nati Herzog, SOFIA) 08 (Not Given - Provider: Chely Young RN - Reason: Patient/family refused) sennosides-docusate sodium (SENOKOT-S) 8.6-50 MG tablet 2 tablet 2 tablet, Oral, NIGHTLY, First dose on Wed11/04/20 at 2100, Post-op 2100 (Given - Provider: Cortez Liz, SOFIA) 195 (Given - Provider: Ashley Acuna, SOFIA) 2100 (Due) sodium chloride flush 0.9 % injection 5-40 mL 5-40 mL, Intravenous, EVERY 12 HOURS SCHEDULED (2 times per day), First dose on Arianna 10/31/20 at 0900, For Line Patency: Peripheral IV = 5 mL; Midline or Central Line = 10 mL/lumen. If following IV push medication, administer flush at same rate as the IV push. Flush volume is determined by type of infusion therapy being given. For non-viscous solutions use: Peripheral IV = 5 mL Midline or Central Line = 10 mL/lumen For viscous solutions (i.e. blood components, parenteral nutrition, contrast media, or after obtaining blood sample) use: Peripheral IV = 10 mL Midline or Central Line = 20 mL/lumen 0925 (Not Given - Provider: Mamie Engle RN - Reason: Loss of IV access)2099 (Not Given - Provider: Cortez Liz RN - Reason: IV Fluid Infusing) 08 (Given - Provider: Nati Herzog, SOFIA)2100 (Not Given - Provider: Ashley Acuna RN - Reason: Other) 09 (Not Given - Provider: Chely Young, SOFIA - Reason: Other)2100 (Due) sodium chloride flush 0.9 % injection 5-40 mL 5-40 mL, Intravenous, EVERY 12 HOURS SCHEDULED (2 times per day), First dose on Wed11/17/20 at 2100, For Line Patency: Peripheral IV = 5 mL; Midline or Central Line = 10 mL/lumen. If following IV push medication, administer flush at same rate as the IV push. Flush volume is determined by type of infusion therapy being given. For non-viscous solutions use: Peripheral IV = 5 mL Midline or Central Line = 10 mL/lumen For viscous solutions (i.e. blood components, parenteral nutrition, contrast media, or after obtaining blood sample) use: Peripheral IV = 10 mL Midline or Central Line = 20 mL/lumen 2100 (Given - Provider: Cortez Liz RN) 826 (Given - Provider: Nati Herzog RN)1952 (Given - Provider: Ashley Acuna RN) 09 (Given - Provider: Chely Young RN)2100 (Due) Continuous Medication Order 11/17/2020 11/18/2020 11/19/2020 0.9 % sodium chloride infusion Intravenous, at 50 mL/hr, CONTINUOUS, Starting on Wed11/17/20 at 1912058 (New Bag - Provider: Cortez Liz RN)233 (Held by provider - Provider: Marvin Barrientos DO - Reason: Other - Comment: Pt is getting lasix, will hold MF overnight) PRN Medication Order 11/17/2020 11/18/2020 11/19/2020 0.9 % sodium chloride infusion Intravenous, at 240 mL/hr, Administer over 10 Minutes, PRN, blood administration, Starting on Wed11/05/20 at 0616, For 1 dose, For use in priming line prior to transfusion (prime via gravity) and flush line post transfusion ONLY. Discontinue once line has been cleared of remaining blood product. 0.9 % sodium chloride infusion 25 mL, Intravenous, at 100 mL/hr, PRN, If patient receiving piggyback infusions without ordered maintenance IV fluids or with frequent/long duration piggyback infusions, Starting on Wed11/17/20 at 1843, Administer at the same rate as the piggyback being infused. acetaminophen (TYLENOL) suppository 650 mg 650 mg, Rectal, EVERY 4 HOURS PRN, Pain Mild (1-3), Starting on Wed11/05/20 at 0621, Maximum dose of acetaminophen is 4000 mg from all sources in 24 hours. Use if PO meds ineffective or if patient NPO bisacodyl (DULCOLAX) EC tablet 5 mg 5 mg, Oral, DAILY PRN, Constipation, Starting on Wed11/17/20 at 1844, First line therapy for constipation. calcium carbonate (TUMS) chewable tablet 500 mg 500 mg, Oral, 3 TIMES DAILY PRN, Heartburn, Starting on Wed11/13/20 at 1110 calcium gluconate 2,000 mg in dextrose 5 % 100 mL IVPB 2,000 mg, Intravenous, at 50 mL/hr, Administer over 120 Minutes, PRN, iCa less than 4.3, Starting on Wed11/04/20 at 1211, Via central line. Infuse over 2 hours, Repeat serum ionized calcium 2 hours [address] infusion completed[address] Place order for recheck under surgeon, Post-op dextrose 5 % solution 100 mL/hr, Intravenous, at 100 mL/hr, PRN, Low blood sugar, Starting on Wed11/04/20 at 1211, Start infusion following administration of dextrose 50% or glucagon., Post-op dextrose 50 % IV solution 12.5 g, Intravenous, PRN, Low blood sugar, Blood glucose less than 70 mg/dL and patient NOT ALERT or NPO., Starting on Wed11/04/20 at 1211, If patient does not respond within 5 minutes, repeat dose x1. Start D5W at 100 mL/hour until ordering provider can be reached. Repeat blood glucose in 15 minutes. If blood glucose is less than 70 mg/dL, repeat treatment and recheck blood glucose in 15 minutes x2. If using Glucostabilizer, dose as instructed per system., Post-op diphenhydrAMINE (BENADRYL) injection 50 mg 50 mg, Intravenous, EVERY 6 HOURS PRN, Itching, Other, Administer to patient if she develops a rash from amiodarone infusion., Starting on Wed11/10/20 at 1942 glucagon (rDNA) injection 1 mg 1 mg, Intramuscular, PRN, Low blood sugar, Blood glucose less than 70 mg/dL and patient NOT ALERT or NPO and does not have IV access., Starting on Wed11/04/20 at 0818, After administration, attempt intravenous access and start D5W at 100 mL/hr. Repeat blood glucose in 15 minutes x2 and notify provider. glucose (GLUTOSE) 40 % oral gel 15 g 15 g, Oral, PRN, Low blood sugar, Starting on Wed11/04/20 at 1211, If blood glucose less than 50 mg/dL and patient ALERT and TOLERATING PO, give 2 tubes glucose gel. If blood glucose less than 70 mg/dL and patient ALERT and TOLERATING PO, give 1 tube glucose gel. Repeat blood glucose in 15 minutes. If blood glucose is less than 70 mg/dL, repeat treatment and recheck blood glucose in 15 minutes x2 and notify provider., Post-op ibuprofen (ADVIL;MOTRIN) tablet 800 mg 800 mg, Oral, EVERY 8 HOURS PRN, Pain Mild (1-3), Starting on Wed11/12/20 at 0648, Do not crush or chew. ipratropium-albuterol (DUONEB) nebulizer solution 1 ampule 1 ampule, Inhalation, EVERY 4 HOURS PRN, Shortness of Breath, Starting on Wed11/12/20 at 0900 labetalol (NORMODYNE;TRANDATE) injection 10 mg 10 mg, Intravenous, EVERY 10 MIN PRN, High Blood Pressure, Starting on Wed11/17/20 at 1843, Administer 10 mg IV every 10 min if SBP is 140 mmHg or greater OR DBP is 110 mmHg or greater as long as HR is greater than 65bpm until goal BP has been achieved and to a max of 30 mg Notify provider if SBP is 140 mmHg or greater OR DBP is 110 mmHg or greater after 3 consecutive doses. If HR is less than 65 call MD for further orders LORazepam (ATIVAN) tablet 0.5 mg 0.5 mg, Oral, EVERY 4 HOURS PRN, Anxiety, Starting on Wed11/15/20 at 0545, Substituted for Clorazepate (TRANXENE). 222 (Given - Provider: Anali Britton RN)2117 (Given - Provider: Cortez Liz RN) 15 (Given - Provider: Ashley Acuna RN)1953 (Given - Provider: Ashley Acuna RN)234 (Given - Provider: Ashley Acuna RN) magnesium sulfate 2000 mg in 50 mL IVPB premix 2,000 mg, Intravenous, at 25 mL/hr, Administer over 2 Hours, PRN, Other, hypomagnesemia, Starting on Wed11/04/20 at 1211, Via central line - If patient has acute/chronic renal failure do not initiate protocol, call MD for management. Mag level Dose Less than or equal to 1.0 Give 2 grams at 1 gm/hr. Call MD. Monitor BP and EKG. Repeat Magnesium level 60 minutes post infusion. 1.1 - 1.5 Give 2 grams at 1 gm/hr. Repeat Magnesium level 60 minutes post infusion 1.6 - 1.9 Give 2 grams at 1 gm/hr. Repeat Magnesium level 60 minutes post infusion Greater than 1.9 No coverage, Post-op metoprolol (LOPRESSOR) injection 5 mg 5 mg, Intravenous, EVERY 6 HOURS PRN, High Blood Pressure, For SBP >155, Starting on Tu11/05/20 at 0623 metoprolol (LOPRESSOR) injection 5 mg 5 mg, Intravenous, EVERY 5 MIN PRN, Tachycardia, HR>130, Starting on Arianna 11/07/20 at 1829, For 2 doses ondansetron (ZOFRAN) injection 4 mg 4 mg, Intravenous, EVERY 6 HOURS PRN, Nausea, Vomiting, Starting on 11/17/20 at 1843 0822 (Given - Provider: Chely Young RN) perflutren lipid microspheres (DEFINITY) injection 1.65 mg 1.65 mg (1.5 mL), Intravenous, IMG ONCE PRN, Other, Suboptimal Echo Image, Starting on 11/17/20 at 1846, For 72 hours, Administer up to 1.65 mg via slow IVP for suboptimal echocardiogram enhancement. May administer as concentrated dose or diluted in 8.5 mL of 0.9% sodium chloride for a total volume of 10 mL. May administer as divided doses to reach optimal image enhancement. 1207 (Given - Provider: Nati Herzog, SOFIA) potassium chloride (KLOR-CON M) extended release tablet 20 mEq 20 mEq, Oral, PRN, hypokalemia, Starting on Wed11/04/20 at 1211, If patient is intubated or not tolerating PO use PRN IV replacement protocol Potassium level Dose < 3.0 = Give 20 mEq x 3 doses 3.0-3.6 = Give 20 mEq x 2 doses Recheck potassium level 2 hour after replacement given, place order for lab under [place] If potassium level < 3 after 1st replacement: Call surgeon. Do not crush or break., Post-op potassium chloride 20 mEq/50 mL IVPB (Central Line) 20 mEq, Intravenous, at 50 mL/hr, Administer over 60 Minutes, PRN, Other, hypokalemia, Starting on 11/04/20 at 1211, Via central line - do not use if urine output below 30 mL/hr or if patient is on total parental nutrition, peritoneal or hemodialysis. Potassium Level Dose: Less than or equal to 3.5-Give 20mEq x 2 doses. Less than or equal to 2-Call provider. Repeat potassium level 2 hour post-infusion and follow protocol as indicated., Post-op promethazine (PHENERGAN) injection 6.25 mg 6.25 mg, Intravenous, EVERY 6 HOURS PRN, Nausea, Starting on Wed11/15/20 at 1004, Recommended route is IM. First line For IV administration, dilute to 10ml with normal saline. Must be administered over at least 10 minutes. 2344 (Given - Provider: Ashley Acuna RN) QUEtiapine (SEROQUEL) tablet 12.5 mg 12.5 mg, Oral, 2 TIMES DAILY PRN, Agitation, Starting on Tu11/05/20 at 1045 sodium chloride flush 0.9 % injection 5-40 mL 5-40 mL, Intravenous, PRN, Line Care, After every IV line use, Starting on Wed11/17/20 at 1843, For Line Patency: Peripheral IV = 5 mL; Midline or Central Line = 10 mL/lumen. If following IV push medication, administer flush at same rate as the IV push. Flush volume is determined by type of infusion therapy being given. For non-viscous solutions use: Peripheral IV = 5 mL Midline or Central Line = 10 mL/lumen For viscous solutions (i.e. blood components, parenteral nutrition, contrast media, or after obtaining blood sample) use: Peripheral IV = 10 mL Midline or Central Line = 20 mL/lumen sodium chloride flush 0.9 % injection 5-40 mL 5-40 mL, Intravenous, PRN, Line Care, Per Financial Operations Clerk Request, Starting on 11/17/20 at 1846, For 72 hours, May use order for Line Care after every IV line use and Agitated Saline Bubble Study. Administration for Bubble Study per mat maker request for only. Remove 1 mL 0.9% sodium chloride from 10 mL syringe for creating agitated saline. If following IV push medication, administer flush at same rate as the IV push. Flush volume is determined by type of infusion therapy being given. , For non-viscous solutions use: Peripheral IV = 5 mL Midline or Central Line = 10 mL/lumen For viscous solutions (i.e. blood components, parenteral nutrition, contrast media, or after obtaining blood sample) use: Peripheral IV = 10 mL Midline or Central Line = 20 mL/lumen Scheduled Medication Order 11/19/2023 11/20/2023 11/21/2023 cefTRIAXone (Rocephin) 2,000 mg in sodium chloride 0.9 % 50 mL IVPB Mini-Bag Plus (COMPLETED) 2,000 mg, IntraVENous, at 100 mL/hr, Administer over 30 Minutes, Once, On 11/21/23 at 0125, For 1 dose, Mini-Bag Plus bag, Suspected Indication (Select all that apply): Urinary Tract Infection 0140 (New Bag - Prov ider: Janel Velasquez RN)0224 (Stopped - Provider: Janel Velasquez RN) INFORMATION SOURCE (unrecogn ized section and content) DATE CREATED AUTHOR 05/31/2021 [facility] DATE CREATED AUTHOR AUTHOR'S ORGANIZ ATION 03/19/2022 [facility] DATE CREATED AUTHOR AUTHOR'S ORGANIZ ATION 03/27/2024 [facility] DATE CREATED AUTHOR AUTHOR'S ORGANIZ ATION 03/11/2025 [facility] DATE CREATED AUTHOR AUTHOR'S ORGANIZ ATION 04/03/2025 [facility] Source Comments (unrecognize d section and content) In the event this informatio n is protected by the Federal Confidentiality of Alcohol and Drug Abuse Patient Records regulations: The Federal rules restrict any use of the information to criminally investigate or prosecute any alcohol or drug abuse patient.[facility] the event this information is protected by the Federal Confidentiality of Alcohol and Drug Abuse Patient Records regulations: The Federal rules restrict any use of the information to criminally investigate or prosecute any alcohol or drug abuse patient.[facility] CenterIn the event this information is protected by the Federal Confidentiality of Alcohol and Drug Abuse Patient Records regulations: The Federal rules restrict any use of the information to criminally investigate or prosecute any alcohol or drug abuse patient.[facility] CenterIn the event this information is protected by the Federal Confidentiality of Alcohol and Drug Abuse Patient Records regulations: The Federal rules restrict any use of the information to criminally investigate or prosecute any alcohol or drug abuse patient.[facility] CenterIn the event this information is protected by the Federal Confidentiality of Alcohol and Drug Abuse Patient Records regulations: The Federal rules restrict any use of the information to criminally investigate or prosecute any alcohol or drug abuse patient.[facility] CenterIn the event this information is protected by the Federal Confidentiality of Alcohol and Drug Abuse Patient Records regulations: The Federal rules restrict any use of the information to criminally investigate or prosecute any alcohol or drug abuse patient.[facility] CenterIn the event this information is protected by the Federal Confidentiality of Alcohol and Drug Abuse Patient Records regulations: The Federal rules restrict any use of the information to criminally investigate or prosecute any alcohol or drug abuse patient.[facility] CenterIn the event this information is protected by the Federal Confidentiality of Alcohol and Drug Abuse Patient Records regulations: The Federal rules restrict any use of the information to criminally investigate or prosecute any alcohol or drug abuse patient.[facility] CenterIn the event this information is protected by the Federal Confidentiality of Alcohol and Drug Abuse Patient Records regulations: The Federal rules restrict any use of the information to criminally investigate or prosecute any alcohol or drug abuse patient.[facility] CenterIn the event this information is protected by the Federal Confidentiality of Alcohol and Drug Abuse Patient Records regulations: The Federal rules restrict any use of the information to criminally investigate or prosecute any alcohol or drug abuse patient.[facility] CenterIn the event this information is protected by the Federal Confidentiality of Alcohol and Drug Abuse Patient Records regulations: The Federal rules restrict any use of the information to criminally investigate or prosecute any alcohol or drug abuse patient.[facility] CenterIn the event this information is protected by the Federal Confidentiality of Alcohol and Drug Abuse Patient Records regulations: The Federal rules restrict any use of the information to criminally investigate or prosecute any alcohol or drug abuse patient.[facility] CenterIn the event this information is protected by the Federal Confidentiality of Alcohol and Drug Abuse Patient Records regulations: The Federal rules restrict any use of the information to criminally investigate or prosecute any alcohol or drug abuse patient.[facility] CenterIn the event this information is protected by the Federal Confidentiality of Alcohol and Drug Abuse Patient Records regulations: The Federal rules restrict any use of the information to criminally investigate or prosecute any alcohol or drug abuse patient.[facility] CenterIn the event this information is protected by the Federal Confidentiality of Alcohol and Drug Abuse Patient Records regulations: The Federal rules restrict any use of the information to criminally investigate or prosecute any alcohol or drug abuse patient.[facility] CenterIn the event this information is protected by the Federal Confidentiality of Alcohol and Drug Abuse Patient Records regulations: The Federal rules restrict any use of the information to criminally investigate or prosecute any alcohol or drug abuse patient.[facility] CenterIn the event this information is protected by the Federal Confidentiality of Alcohol and Drug Abuse Patient Records regulations: The Federal rules restrict any use of the information to criminally investigate or prosecute any alcohol or drug abuse patient.[facility] CenterIn the event this information is protected by the Federal Confidentiality of Alcohol and Drug Abuse Patient Records regulations: The Federal rules restrict any use of the information to criminally investigate or prosecute any alcohol or drug abuse patient.[facility] CenterIn the event this information is protected by the Federal Confidentiality of Alcohol and Drug Abuse Patient Records regulations: The Federal rules restrict any use of the information to criminally investigate or prosecute any alcohol or drug abuse patient.[facility] CenterIn the event this information is protected by the Federal Confidentiality of Alcohol and Drug Abuse Patient Records regulations: The Federal rules restrict any use of the information to criminally investigate or prosecute any alcohol or drug abuse patient.[facility] CenterIn the event this information is protected by the Federal Confidentiality of Alcohol and Drug Abuse Patient Records regulations: The Federal rules restrict any use of the information to criminally investigate or prosecute any alcohol or drug abuse patient.[facility] CenterIn the event this information is protected by the Federal Confidentiality of Alcohol and Drug Abuse Patient Records regulations: The Federal rules restrict any use of the information to criminally investigate or prosecute any alcohol or drug abuse patient.[facility] CenterIn the event this information is protected by the Federal Confidentiality of Alcohol and Drug Abuse Patient Records regulations: The Federal rules restrict any use of the information to criminally investigate or prosecute any alcohol or drug abuse patient.[facility] CenterIn the event this information is protected by the Federal Confidentiality of Alcohol and Drug Abuse Patient Records regulations: The Federal rules restrict any use of the information to criminally investigate or prosecute any alcohol or drug abuse patient.[facility] CenterIn the event this information is protected by the Federal Confidentiality of Alcohol and Drug Abuse Patient Records regulations: The Federal rules restrict any use of the information to criminally investigate or prosecute any alcohol or drug abuse patient.[facility] CenterIn the event this information is protected by the Federal Confidentiality of Alcohol and Drug Abuse Patient Records regulations: The Federal rules restrict any use of the information to criminally investigate or prosecute any alcohol or drug abuse patient.[facility] CenterIn the event this information is protected by the Federal Confidentiality of Alcohol and Drug Abuse Patient Records regulations: The Federal rules restrict any use of the information to criminally investigate or prosecute any alcohol or drug abuse patient.[facility] CenterIn the event this information is protected by the Federal Confidentiality of Alcohol and Drug Abuse Patient Records regulations: The Federal rules restrict any use of the information to criminally investigate or prosecute any alcohol or drug abuse patient.[facility] CenterIn the event this information is protected by the Federal Confidentiality of Alcohol and Drug Abuse Patient Records regulations: The Federal rules restrict any use of the information to criminally investigate or prosecute any alcohol or drug abuse patient.[facility] CenterIn the event this information is protected by the Federal Confidentiality of Alcohol and Drug Abuse Patient Records regulations: The Federal rules restrict any use of the information to criminally investigate or prosecute any alcohol or drug abuse patient.[facility] CenterIn the event this information is protected by the Federal Confidentiality of Alcohol and Drug Abuse Patient Records regulations: The Federal rules restrict any use of the information to criminally investigate or prosecute any alcohol or drug abuse patient.[facility] CenterIn the event this information is protected by the Federal Confidentiality of Alcohol and Drug Abuse Patient Records regulations: The Federal rules restrict any use of the information to criminally investigate or prosecute any alcohol or drug abuse patient.[facility] CenterIn the event this information is protected by the Federal Confidentiality of Alcohol and Drug Abuse Patient Records regulations: The Federal rules restrict any use of the information to criminally investigate or prosecute any alcohol or drug abuse patient.[facility] CenterIn the event this information is protected by the Federal Confidentiality of Alcohol and Drug Abuse Patient Records regulations: The Federal rules restrict any use of the information to criminally investigate or prosecute any alcohol or drug abuse patient.[facility] CenterIn the event this information is protected by the Federal Confidentiality of Alcohol and Drug Abuse Patient Records regulations: The Federal rules restrict any use of the information to criminally investigate or prosecute any alcohol or drug abuse patient.[facility] CenterIn the event this information is protected by the Federal Confidentiality of Alcohol and Drug Abuse Patient Records regulations: The Federal rules restrict any use of the information to criminally investigate or prosecute any alcohol or drug abuse patient.[facility] CenterIn the event this information is protected by the Federal Confidentiality of Alcohol and Drug Abuse Patient Records regulations: The Federal rules restrict any use of the information to criminally investigate or prosecute any alcohol or drug abuse patient.[facility] CenterIn the event this information is protected by the Federal Confidentiality of Alcohol and Drug Abuse Patient Records regulations: The Federal rules restrict any use of the information to criminally investigate or prosecute any alcohol or drug abuse patient.[facility] CenterIn the event this information is protected by the Federal Confidentiality of Alcohol and Drug Abuse Patient Records regulations: The Federal rules restrict any use of the information to criminally investigate or prosecute any alcohol or drug abuse patient.[facility] CenterIn the event this information is protected by the Federal Confidentiality of Alcohol and Drug Abuse Patient Records regulations: The Federal rules restrict any use of the information to criminally investigate or prosecute any alcohol or drug abuse patient.[facility] CenterIn the event this information is protected by the Federal Confidentiality of Alcohol and Drug Abuse Patient Records regulations: The Federal rules restrict any use of the information to criminally investigate or prosecute any alcohol or drug abuse patient.[facility] CenterIn the event this information is protected by the Federal Confidentiality of Alcohol and Drug Abuse Patient Records regulations: The Federal rules restrict any use of the information to criminally investigate or prosecute any alcohol or drug abuse patient.[facility] CenterIn the event this information is protected by the Federal Confidentiality of Alcohol and Drug Abuse Patient Records regulations: The Federal rules restrict any use of the information to criminally investigate or prosecute any alcohol or drug abuse patient.[facility] CenterIn the event this information is protected by the Federal Confidentiality of Alcohol and Drug Abuse Patient Records regulations: The Federal rules restrict any use of the information to criminally investigate or prosecute any alcohol or drug abuse patient.[facility] CenterIn the event this information is protected by the Federal Confidentiality of Alcohol and Drug Abuse Patient Records regulations: The Federal rules restrict any use of the information to criminally investigate or prosecute any alcohol or drug abuse patient.[facility] CenterIn the event this information is protected by the Federal Confidentiality of Alcohol and Drug Abuse Patient Records regulations: The Federal rules restrict any use of the information to criminally investigate or prosecute any alcohol or drug abuse patient.[facility] CenterIn the event this information is protected by the Federal Confidentiality of Alcohol and Drug Abuse Patient Records regulations: The Federal rules restrict any use of the information to criminally investigate or prosecute any alcohol or drug abuse patient.[facility] CenterIn the event this information is protected by the Federal Confidentiality of Alcohol and Drug Abuse Patient Records regulations: The Federal rules restrict any use of the information to criminally investigate or prosecute any alcohol or drug abuse patient.[facility] CenterIn the event this information is protected by the Federal Confidentiality of Alcohol and Drug Abuse Patient Records regulations: The Federal rules restrict any use of the information to criminally investigate or prosecute any alcohol or drug abuse patient.[facility] CenterIn the event this information is protected by the Federal Confidentiality of Alcohol and Drug Abuse Patient Records regulations: The Federal rules restrict any use of the information to criminally investigate or prosecute any alcohol or drug abuse patient.[facility] CenterIn the event this information is protected by the Federal Confidentiality of Alcohol and Drug Abuse Patient Records regulations: The Federal rules restrict any use of the information to criminally investigate or prosecute any alcohol or drug abuse patient.[facility] CenterIn the event this information is protected by the Federal Confidentiality of Alcohol and Drug Abuse Patient Records regulations: The Federal rules restrict any use of the information to criminally investigate or prosecute any alcohol or drug abuse patient.[facility] CenterIn the event this information is protected by the Federal Confidentiality of Alcohol and Drug Abuse Patient Records regulations: The Federal rules restrict any use of the information to criminally investigate or prosecute any alcohol or drug abuse patient.[facility] CenterIn the event this information is protected by the Federal Confidentiality of Alcohol and Drug Abuse Patient Records regulations: The Federal rules restrict any use of the information to criminally investigate or prosecute any alcohol or drug abuse patient.[facility] CenterIn the event this information is protected by the Federal Confidentiality of Alcohol and Drug Abuse Patient Records regulations: The Federal rules restrict any use of the information to criminally investigate or prosecute any alcohol or drug abuse patient.[facility] CenterIn the event this information is protected by the Federal Confidentiality of Alcohol and Drug Abuse Patient Records regulations: The Federal rules restrict any use of the information to criminally investigate or prosecute any alcohol or drug abuse patient.[facility] CenterIn the event this information is protected by the Federal Confidentiality of Alcohol and Drug Abuse Patient Records regulations: The Federal rules restrict any use of the information to criminally investigate or prosecute any alcohol or drug abuse patient.[facility] Care Teams (unrecognized sec tion and content) Manager Battery Relationship Specialty Start Date End Date Jd Barger MD [address] [place] [address] PCP - General Internal Medicine 11/19/16 Manager Battery Relationship Specialty Start Date End Date Jd Barger MD [address] [place], [place] [address] PCP - General Internal Medicine 11/19/16 Manager Battery Relationship Specialty Start Date End Date Jd Barger MD [address] [place] [address] PCP - General Internal Medicine 11/19/16 Manager Battery Relationship Specialty Start Date End Date Jd Barger MD [address] [place] [address] PCP - General Internal Medicine 11/19/16 Manager Battery Relationship Specialty Start Date End Date Jd Barger MD [address] [place] [address], [place] [address] PCP - General Internal Medicine 11/19/16 Manager Battery Relationship Specialty Start Date End Date Jd Barger MD [address] [place] [address], [place] [address] PCP - General Internal Medicine 11/19/16 Manager Battery Relationship Specialty Start Date End Date Jd Barger MD [address] [place] [address], [place] [address] PCP - General Internal Medicine 11/19/16 Manager Battery Relationship Specialty Start Date End Date Jd Barger MD [address] [place] [address], [place] [address] PCP - General Internal Medicine 11/19/16 Manager Battery Relationship Specialty Start Date End Date Jd Barger MD [address] [place] [address], [place] [address] PCP - General Internal Medicine 11/19/16 Manager Battery Relationship Specialty Start Date End Date Jd Barger MD [address] [place] [address], [place] [address] PCP - General Internal Medicine 11/19/16 Manager Battery Relationship Specialty Start Date End Date Jd Barger MD [address] [place] [address], [place] [address] PCP - General Internal Medicine 11/19/16 Manager Battery Relationship Specialty Start Date End Date Jd Barger MD [address] [place] [address] PCP - General Internal Medicine 11/19/16 Manager Battery Relationship Specialty Start Date End Date Jd Barger MD [address] [place] [address] PCP - General Internal Medicine 11/19/16 Manager Battery Relationship Specialty Start Date End Date Jd Barger [facility] [place] [address] PCP - General Internal Medicine 01/07/22 Manager Battery Relationship Specialty Start Date End Date Jd Barger MD [address] [place] [address], [place] [address] PCP - General Internal Medicine 11/19/16 Manager Battery Relationship Specialty Start Date End Date Jd Barger MD [address] [place] [address], [place] [address] PCP - General Internal Medicine 11/19/16 Manager Battery Relationship Specialty Start Date End Date Jd Barger MD [address] [place] [address], [place] [address] PCP - General Internal Medicine 11/19/16 Manager Battery Relationship Specialty Start Date End Date Jd Barger MD [address] [place] [address], [place] [address] PCP - General Internal Medicine 11/19/16 Manager Battery Relationship Specialty Start Date End Date Jd Barger MD [address] [place] [address], [place] [address] PCP - General Internal Medicine 11/19/16 Manager Battery Relationship Specialty Start Date End Date Jd Barger MD [address] [place] [address], [place] [address] PCP - General Internal Medicine 11/19/16 Team Status: Active Member Role Status Dates Dr. Jd Barger MD Family Provider Active Dr. Jd Barger MD Primary Care Provider Active Team Status: Inactive Member Role Status Dates Dr. Jd Barger MD Primary Care Provider, Referr ing Provider Active Dr. Adrien Sanabria MD Attending Provider Active Team Status: Active Member Role Status Dates Dr. Jd Barger MD Primary Care Provider Active Dr. Jaren Miller MD Emergency Provider Active Dr. Jamir Ley MD Admit Provi rossy, Attending Provider, Other Provider Active Team Status: Active Member Role Status Dates Dr. Jd Barger MD Primary Care Provider Active Dr. Jaren Miller MD Emergency Provider Active Dr. Jamir Ley MD Admit Provider, Other Pro vider Active Dr. Gisela Chandler , Attending Provider, Other Provide r Active Team Status: Active Member Role Status Dates Dr. Jd Barger MD Primary Care Provider Active Dr. Jaren Miller MD Emergency Provider Active Dr. Jamir Ley MD Admit Provider, Other Pro vider Active Dr. Chano Henao DO Attending Provider, Other Provid er Active Dr. Gisela Chandler , DO Other Provider Active Team Status: Active Member Role Status Dates Dr. Jd Barger MD Primary Care Provider Active Dr. Jaren Miller MD Emergency Provider Active Dr. Jamir Ley MD Admit Provider, Other Pro vider Active Dr. Gisela Chandler , DO Other Provider Active Dr. Betsy Victor MD Attending Provider, Other Provid er Active Dr. Chano Henao , Other Provider Active Team Status: Inactive Member Role Status Dates Dr. Jd Barger MD Primary Care Provider Active Dr. Jaren Miller MD Emergency Provider Active Dr. Jamir Ley MD Admit Provider, Other Pro vider Active Dr. Gisela Chandler , DO Other Provider Active Dr. Betsy Victor MD Attending Provider Active Dr. Chano Henao , Other Provider Active Team Status: Active Member Role Status Dates Dr. Jd Barger MD Primary Care Provider Active Jd MACK MD Attending Provider, Referring Provider Active Team Status: Inactive Member Role Status Dates Dr. Jd Barger MD Primary Care Pr ovider, Attending Provider, Referring Provider Active Manager Battery Relationship Specialty Start Date End Date Jd Barger MD [address] [place] [address] PCP - General Internal Medicine 11/19/16 Team Status: Inactive Member Role Status Dates Dr. Jd Barger MD Primary Care Provider, Referr ing Provider Active Dr. Jose Heath DO Attending Provider Active Team Status: Inactive Member Role Status Dates Dr. Jd Barger MD Primary Care Provider Active Dr. Jose Heath DO Attending Provider, Referring Provider Active Team Status: Active Member Role Status Dates Dr. Jd Barger MD Primary Care Provider Active Dr. Jose Heath DO Attending Provider, Referring Provider Active Manager Battery Relationship Specialty Start Date End Date Jd Barger MD [address] [place] [address] PCP - General Internal Medicine 11/19/16 Manager Battery Relationship Specialty Start Date End Date Jd Barger MD [address] [place] [address] PCP - General Internal Medicine 11/19/16 Manager Battery Relationship Specialty Start Date End Date Jd Barger [address] [place] [address] PCP - General 01/07/22 Manager Battery Relationship Specialty Start Date End Date Jd Barger MD [address] [place] [address] PCP - General Internal Medicine 11/19/16 Manager Battery Relationship Specialty Start Date End Date Jd Barger [address] [place] [address] PCP - General 01/07/22 Manager Battery Relationship Specialty Start Date End Date Jd Barger MD [address] [place] [address] PCP - General Internal Medicine 11/19/16 Team Status: Inactive Member Role Status Dates Dr. Jd Barger MD Primary Care Provider, Referr ing Provider Active Giorgio Reyez [employer], [employer]-C Attending Provider Active Team Status: Inactive Member Role Status Dates Dr. Jd Barger MD Primary Care Provider Active Jd MACK MD Attending Provider, Referring Provider Active Manager Battery Relationship Specialty Start Date End Date Jd Barger [address] [place] [address] PCP - General 01/07/22 Manager Battery Relationship Specialty Start Date End Date Jd Barger [address] [place] [address] PCP - General 01/07/22 Manager Battery Relationship Specialty Start Date End Date Jd Barger [address] [place] [address] PCP - General 01/07/22 Manager Battery Relationship Specialty Start Date End Date Jd Barger [address] [place] [address] PCP - General 01/07/22 Manager Battery Relationship Specialty Start Date End Date Jd Barger MD [address] [place] [address] PCP - General Internal Medicine 11/19/16 Manager Battery Relationship Specialty Start Date End Date Jd Barger MD [address] [place] [address] PCP - General Internal Medicine 11/19/16 Manager Battery Relationship Specialty Start Date End Date Jd Barger [address] [place] [address] PCP - General 01/07/22 Team Status: Inactive Member Role Status Dates Dr. Jd Barger MD Primary Care Provider Active Dr. Dennis Araya MD Attending Provider Active Dr. Jose Heath DO Referring Provider Active Manager Battery Relationship Specialty Start Date End Date Jd Barger MD [address] [place] [address] PCP - General Internal Medicine 11/19/16 Manager Battery Relationship Specialty Start Date End Date Jd Barger [address] [place] [address] PCP - General 01/07/22 Manager Battery Relationship Specialty Start Date End Date Jd Barger [address] [place] [address] PCP - General 01/07/22 Manager Battery Relationship Specialty Start Date End Date Jd Barger [address] [place] [address] PCP - General 01/07/22 Manager Battery Relationship Specialty Start Date End Date Jd Barger [address] [place] [address] PCP - General 01/07/22 Manager Battery Relationship Specialty Start Date End Date Jd Barger MD [address] [place] [address] PCP - General Internal Medicine 11/19/16 Manager Battery Relationship Specialty Start Date End Date Jd Barger MD [address] [place] [address] PCP - General Internal Medicine 11/19/16 Manager Battery Relationship Specialty Start Date End Date Jd Barger MD [address] [place] [address] PCP - General Internal Medicine 11/19/16 Manager Battery Relationship Specialty Start Date End Date Jd Barger [address] [place] [address] PCP - General 01/07/22 Manager Battery Relationship Specialty Start Date End Date Jd Barger MD [address] [place] [address] PCP - General Internal Medicine 11/19/16 Manager Battery Relationship Specialty Start Date End Date Jd Barger MD [address] [place] [address] PCP - General Internal Medicine 11/19/16 Manager Battery Relationship Specialty Start Date End Date Agatha Matthews MD [address] [place] [address] PCP - General Internal Medicine 03/26/24 Manager Battery Relationship Specialty Start Date End Date Agatha Matthews MD [address] [place] [address] PCP - General Internal Medicine 03/26/24 Manager Battery Relationship Specialty Start Date End Date Agatha Matthews MD [address] [place], [place] [id number] PCP - General Internal Medicine 08/29/24 Team Status: Active Member Role Status Dates Dr. Agatha Matthews MD Primary Care Provider Active Team Status: Active Member Role Status Dates Dr. Agatha Matthews MD Primary Care Provider Active Start: September 04, 2024 Padma Donovan Attending Provider Active Start: 2024 Team Status: Inactive Member Role Status Dates Dr. Agatha Matthews MD Primary Care Provider Active Start: September 26, 2024 End: September 26, 2024 Dr. Agatha Matthews MD Referring Provider Active Start: September 26, 2024 End: September 26, 2024 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, [employer]MER-C Attending Provider Active Start: September 26, 2024 End: September 26, 2024 Team Status: Inactive Member Role Status Dates Dr. Agatha Matthews MD Primary Care Provider Active Start: October 06, 2024 End: October 06, 2024 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, [employer]MER-C Attending Provider Active Start: October 06, 2024 End: October 06, 2024 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, [employer]MER-C Referring Provider Active Start: October 06, 2024 End: October 06, 2024 Team Status: Active Member Role Status Dates Dr. Agatha Matthews MD Primary Care Provider Active Start: October 06, 2024 Dr. Adrien Sanabria MD Attending Provider Active S tart: October 06, 2024 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, [employer]MER-C Referring Provider Active Start: October 06, 2024 Team Status: Inactive Member Role Status Dates Dr. Agatha Matthews MD Primary Care Provider Active Start: November 01, 2024 End: November 01, 2024 Dr. Agatha Matthews MD Referring Provider Active Start: November 01, 2024 End: November 01, 2024 JUDY Neal Attending Provider Active Start: November 01, 2024 End: November 01, 2024 Team Status: Inactive Member Role Status Dates Dr. Agatha Matthews MD Primary Care Provider Active Start: November 01, 2024 End: November 01, 2024 JUDY Neal Attending Provider Active Start: November 01, 2024 End: November 01, 2024 JUDY Neal Referring Provider Active Start: November 01, 2024 End: November 01, 2024 Team Status: Active Member Role/Relationship Status Dates Bill Corado MD Primary Care Provider Active Team Status: Active Member Role/Relationship Status Dates Dr. Agatha Matthews MD Primary Care Provider Active Start: September 04, 2024 Padma Donovan Attending Provider Active Start: 2024 Team Status: Inactive Member Role/Relationship Status Dates Dr. Agatha Matthews MD Primary Care Provider Active Start: September 26, 2024 End: September 26, 2024 Dr. Agatha Matthews MD Referring Provider Active Start: September 26, 2024 End: September 26, 2024 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, [employer]MER-C Attending Provider Active Start: September 26, 2024 End: September 26, 2024 Team Status: Inactive Member Role/Relationship Status Dates Dr. Agatha Matthews MD Primary Care Provider Active Start: October 06, 2024 End: October 06, 2024 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, [employer]MER-C Attending Provider Active Start: October 06, 2024 End: October 06, 2024 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, [employer]MER-C Referring Provider Active Start: October 06, 2024 End: October 06, 2024 Team Status: Active Member Role/Relationship Status Dates Dr. Agatha Matthews MD Primary Care Provider Active Start: October 06, 2024 Dr. Adrien Sanabria MD Attending Provider Active S tart: October 06, 2024 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, [employer]MER-C Referring Provider Active Start: October 06, 2024 Team Status: Inactive Member Role/Relationship Status Dates Dr. Agatha Matthews MD Primary Care Provider Active Start: November 01, 2024 End: November 01, 2024 Dr. Agatha Matthews MD Referring Provider Active Start: November 01, 2024 End: November 01, 2024 JUDY Neal Attending Provider Active Start: November 01, 2024 End: November 01, 2024 Team Status: Inactive Member Role/Relationship Status Dates Dr. Agatha Matthews MD Primary Care Provider Active Start: November 01, 2024 End: November 01, 2024 JUDY Neal Attending Provider Active Start: November 01, 2024 End: November 01, 2024 JUDY Neal Referring Provider Active Start: November 01, 2024 End: November 01, 2024 Team Status: Inactive Member Role/Relationship Status Dates Bill Corado MD Primary Care Provider Active St art: December 19, 2024 End: December 20, 2024 Dr. Juan Miguel Covarrubias MD Emergency Provider Active Start: December 19, 2024 End: December 20, 2024 Team Status: Inactive Member Role/Relationship Status Dates Dr. Agatha Matthews MD Primary Care Provider Active Start: September 26, 2024 End: September 26, 2024 Dr. Agatha Matthews MD Referring Provider Active Start: September 26, 2024 End: September 26, 2024 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, [employer]MER-C Attending Provider Active Start: September 26, 2024 End: September 26, 2024 Team Status: Inactive Member Role/Relationship Status Dates Dr. Agatha Matthews MD Primary Care Provider Active Start: October 06, 2024 End: October 06, 2024 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, [employer] FORMER-C Attending Provider Active Start: October 06, 2024 End: October 06, 2024 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, [employer] FORMER-C Referring Provider Active Start: October 06, 2024 End: October 06, 2024 Team Status: Active Member Role/Relationship Status Dates Dr. Agatha Matthews MD Primary Care Provider Active Start: October 06, 2024 Dr. Adrien Sanabria MD Attending Provider Active S tart: October 06, 2024 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 FORMER, [employer] FORMER-C Referring Provider Active Start: October 06, 2024 Team Status: Inactive Member Role/Relationship Status Dates Dr. Agatha Matthews MD Primary Care Provider Active Start: November 01, 2024 End: November 01, 2024 Dr. Agatha Matthews MD Referring Provider Active Start: November 01, 2024 End: November 01, 2024 JUDY Neal Attending Provider Active Start: November 01, 2024 End: November 01, 2024 Team Status: Inactive Member Role/Relationship Status Dates Dr. Agatha Matthews MD Primary Care Provider Active Start: November 01, 2024 End: November 01, 2024 JUDY Neal Attending Provider Active Start: November 01, 2024 End: November 01, 2024 JUDY Neal Referring Provider Active Start: November 01, 2024 End: November 01, 2024 Team Status: Inactive Member Role/Relationship Status Dates Bill Corado MD Primary Care Provider Active St art: December 19, 2024 End: December 20, 2024 Dr. Juan Miguel Covarrubias MD Attending Provider Active Start: December 19, 2024 End: December 20, 2024 Dr. Juan Miguel Covarrubias MD Emergency Provider Active Start: December 19, 2024 End: December 20, 2024 Team Status: Inactive Member Role/Relationship Status Dates JUDY Neal Attending Provider Active Start: January 18, 2025 End: January 18, 2025 JUDY Neal Referring Provider Active Start: January 18, 2025 End: January 18, 2025 Bill Corado MD Primary Care Provider Active St art: January 18, 2025 End: January 18, 2025 Team Status: Active Member Role/Relationship Status Dates Bill Corado MD Primary care physician Active Team Status: Inactive Member Role/Relationship Status Dates Dr. Agatha Matthews MD Primary care physician Active Start: November 01, 2024 End: November 01, 2024 Dr. Agatha Matthews MD Referring Provider Active Start: November 01, 2024 End: November 01, 2024 JUDY Neal Attending physician Active Start: November 01, 2024 End: November 01, 2024 Team Status: Inactive Member Role/Relationship Status Dates Dr. Agatha Matthews MD Primary care physician Active Start: November 01, 2024 End: November 01, 2024 JUDY Neal Attending physician Active Start: November 01, 2024 End: November 01, 2024 JUDY Neal Referring Provider Active Start: November 01, 2024 End: November 01, 2024 Team Status: Inactive Member Role/Relationship Status Dates Bill Corado MD Primary care physician Active S tart: December 19, 2024 End: December 20, 2024 Dr. Juan Miguel Covarrubias MD Attending physician Active Start: December 19, 2024 End: December 20, 2024 Dr. Juan Miguel Covarrubias MD Emergency Department Physician Active Start: December 19, 2024 End: December 20, 2024 Team Status: Inactive Member Role/Relationship Status Dates JUDY Neal Attending physician Active Start: January 18, 2025 End: January 18, 2025 JUDY Neal Referring Provider Active Start: January 18, 2025 End: January 18, 2025 Bill Corado MD Primary care physician Active S tart: January 18, 2025 End: January 18, 2025 Team Status: Inactive Member Role/Relationship Status Dates Bill Corado MD Primary care physician Active S tart: February 15, 2025 End: February 15, 2025 JUDY Neal Attending physician Active Start: February 15, 2025 End: February 15, 2025 JUDY Neal Referring Provider Active Start: February 15, 2025 End: February 15, 2025 Manager [employer] Relationship Specialty Start Date End Date Bill Corado MD [address] [place] [address] [place] [id number] PCP - General Family Medicine 03/06/25 Goals (unrecognized section and content) Goals may be documented in a n alternate sectionGoals may be documented in an alternate sectionGoals may be documented in an alternate sectionGoals may be documented in an alternate sectionGoals may be documented in an alternate sectionGoals may be documented in an alternate sectionGoals may be documented in an alternate sectionGoals may be documented in an alternate sectionGoals may be documented in an alternate sectionGoals may be documented in an alternate sectionGoals may be documented in an alternate section FOR RECORDS PERTAINING TO PATIENTS WHO ARE OR HAVE BEEN ENROLLED IN A CHEMICAL DEPENDENCY/SUBSTANCEABUSE PROGRAM, SOME INFORMATION MAY BE OMITTED. This clinical summary was aggregated from multiple sources. Caution should be exercised in using it in the provision of clinical care. This summary normalizes information from multiple sources, and as a consequence, information in this document may materially change the coding, format and clinical context of patient data. In addition, data may be omitted in some cases. CLINICAL DECISIONS SHOULD BE BASED ON THE PRIMARY CLINICAL RECORDS. [facility] [employer] [facility]. provides no warranty or guarantee of the accuracy or completeness of information in this document.
[2025-04-27 17:57] LABS: Hematocrit 44.9 % (37-47); Hemoglobin 14.3 g/dL (12.0-15.0); Immature Granulocytes Count 0.060 X10^3/uL (0.0-0.0); Mean Corp Hgb Conc 31.8 g/dL (32-36); Mean Corpuscular Volume 85.0 fL (81-99); Mean Platelet Vol. 11.6 fl (6.2-12.0); NRBC Flagged by Analyzer 0 % (0-5); Platelet Count 292 K/mm3 (150-450); RBC Distribution Width CV 14.3 % (11.6-14.6); RBC Distribution Width SD 44.2 fl (35.1-43.9); Red Blood Count 5.28 M/mm3 (4.2-5.4); White Blood Count 7.6 K/mm3 (4.4-11.0)
== END | disposition home or self-care (01) ==
LOC: MTLAB 15:59
PROVIDERS: PCP Family Medicine
DX: R23.3 Spontaneous ecchymoses (principal)
CPT/HCPCS: 36415; 85025